=== PATIENT | female | born 1955 | race Caucasian/White ===

== ENCOUNTER → 2016-04-15 | Outpatient (CLI) | payer MEDICARE, OTHER ==
--- NOTE | 2016-04-18 10:06 | MM ---
Reason for exam: screening (asymptomatic). Last mammogram was performed 2 years ago. History: Patient is postmenopausal, has history of high-risk lesion on a previous biopsy at age 55, and is nulliparous. Family history of breast cancer in maternal aunt at age 70. Benign right breast needle localzation of both breasts, January 21, 2013. High risk right breast needle localzation of both breasts, September 10, 2012. Benign right breast aspiration of the right breast, August 20, 2012. High risk u/S left breast localization of the left breast, April 18, 2011. Benign excisional biopsy of the left breast, November 2004. Took estrogen for 3 years beginning at age 45. Taking other hormone beginning at age 55. Physical Findings: A clinical breast exam by your physician is recommended on an annual basis and results should be correlated with mammographic findings. MG 3D Screening Mammo W/Cad Bilateral CC and MLO view(s) were taken. Prior study comparison: April 08, 2014, bilateral MG diagnostic mammo w CAD ALEE. September 26, 2013, bilateral MG diagnostic mammo w CAD ALEE. The breast tissue is heterogeneously dense. This may lower the sensitivity of mammography. There is no discrete abnormality including area of concern. Post operative distortion bilaterally. ASSESSMENT: Incomplete: need additional imaging evaluation, BI-RAD 0 RECOMMENDATION: Ultrasound of the right breast. Manage patient on a clinical basis. [facility] will attempt to contact patient to return for ultrasound.
== END | disposition home or self-care (01) ==
LOC: RADMAMWWP 13:00
PROVIDERS: ATTEND Internal Medicine
DX: Z12.31 Encounter for screening mammogram for malignant neoplasm of breast (principal); R92.2 Inconclusive mammogram
CPT/HCPCS: 77063; G0202

== ENCOUNTER 2016-04-16 15:23 | Emergency (ER) | payer MEDICARE, OTHER ==
[2016-04-16 15:32] VITALS: TEMP 98.7
[2016-04-16 15:43] LABS: Glucose,Whole Blood 213 mg/dL (75-99)
[2016-04-16] MEDS ORDERED: MECLIZINE 12.5 MG TAB PO STA (15:58)
[2016-04-16 16:07] LABS: Anisocytosis Slight; Basophils % (A) 0 %; CH 25.9; CHCM 30.7; Eosinophils % (A) 1 %; HCT 39.9 % (34.0-46.0); HDW 3.24; HGB 11.8 gm/dL (11.4-16.0); Hypochromasia Marked; Luc # (Auto) 0.07; Luc % (Auto) 1; Lymphocytes % (A) 30 %; MCH 25.2 pg (25.0-35.0); MCHC 29.7 g/dL (31.0-37.0); MCV 84.8 fL (80.0-100.0); Mean Platelet Volume 7.7; Monocytes # (A) 0.3 k/uL (0-1.0); Monocytes % (A) 4 %; Neutrophils # (A) 4.3 k/uL (1.3-7.7); Neutrophils % (A) 64 %; RDW 16.5 % (11.5-15.5); WBC 6.7 k/uL (3.8-10.6); WBC (Perox) 6.63
[2016-04-16 16:20] LABS: Anion Gap 10 mmol/L; Blood Urea Nitrogen 13 mg/dL (7-17); Calcium 8.6 mg/dL (8.4-10.2); Carbon Dioxide 31 mmol/L (22-30); Chloride 97 mmol/L (98-107); Glucose 225 mg/dL (74-99); Non-African American GFR(MDRD) >60 (>60 ml/min/1.73 sqM); Potassium 4.2 mmol/L (3.5-5.1); Sodium 138 mmol/L (137-145)
--- NOTE | 2016-04-16 16:45 | CT ---
EXAMINATION TYPE: CT brain wo con DATE OF EXAM: 04/16/2016 4:19 PM COMPARISON: NONE HISTORY: Patient complains of dizziness. CT DLP: 809.2 mGycm Automated exposure control for dose reduction was used. FINDINGS: Ventricles and sulci appear normal for age. There is no mass effect nor midline shift. There is no si gn of intracranial hemorrhage. The calvarium is intact. There is a small mucous retention cyst in the sphenoid sinus. IMPRESSION: Negative unenhanced head CT scan.
--- NOTE | 2016-04-16 16:57 | ED ---
Dizziness HPI - General Chief Complaint: Dizziness Stated Complaint: dizziness Time Seen by Provider: 04/16/16 15:26 Source: patient, RN notes reviewed Mode of arrival: ambulatory Limitations: no limitations - History of Present Illness MD Complaint: dizziness -: hour(s) Timing: sudden onset Description: sense of movement History of Same: No History of Trauma: No Severity: moderate Improves With: remaining still Worsens With: movement Associated Symptoms: denies other symptoms - Related Data Home Medications Medication Instructions Recorded Confirmed Acetaminophen Tab [Tylenol Tab] 1,000 mg PO Q6HR PRN 07/31/14 04/16/16 Escitalopram [Lexapro] 20 mg PO DAILY 07/31/14 04/16/16 Levothyroxine Sodium [Synthroid] 88 mcg PO DAILY 07/31/14 04/16/16 Loratadine [Claritin] 10 mg PO DAILY 07/31/14 04/16/16 Losartan-Hctz 50-12.5 mg [Hyzaar 1 tab PO DAILY 07/31/14 04/16/16 50-12.5] Metoprolol Tartrate [Lopressor] 50 mg PO HS 07/31/14 04/16/16 QUEtiapine FUMARATE [SEROquel] 300 mg PO HS 07/31/14 04/16/16 Warfarin [Coumadin] 5 mg PO MOTUTHFRSA 07/31/14 04/16/16 Albuterol Nebulized [Ventolin 2.5 mg INHALATION RT-QID PRN 11/30/15 04/16/16 Nebulized] Linagliptin [Tradjenta] 5 mg PO 1800 11/30/15 04/16/16 glipiZIDE [Glucotrol] 5 mg PO AC-BID 11/30/15 04/16/16 Fluocinolone Acetonide Oil 5 drops BOTH EARS BID PRN 04/16/16 04/16/16 [Fluocinolone Acetonide Oil (Otic)] Medroxyprogesterone Acetate 5 mg PO DAILY 04/16/16 04/16/16 [Provera] Omeprazole [PriLOSEC] 40 mg PO DAILY 04/16/16 04/16/16 Warfarin [Coumadin] 2.5 mg PO SUWE 04/16/16 04/16/16 Previous Rx's Medication Instructions Recorded Meclizine [Antivert] 25 mg PO TID PRN #21 tab 04/16/16 Allergies Allergy/AdvReac Type Severity Reaction Status Date / Time ciprofloxacin [From Cipro] Allergy Severe HIVES Verified 04/16/16 15:32 ciprofloxacin HCl Allergy Severe HIVES Verified 04/16/16 15:32 [From Cipro] clarithromycin [From Biaxin] Allergy Severe HIVES Verified 04/16/16 15:32 codeine Allergy Severe HIVES Verified 04/16/16 15:32 duloxetine HCl Allergy Severe Nausea Verified 04/16/16 15:32 [From Cymbalta] hydrocodone bitartrate Allergy Severe Rash/Hives Verified 04/16/16 15:32 [From Vicodin] Penicillins Allergy Severe Abdominal Verified 04/16/16 15:32 Pain Sulfa (Sulfonamide Allergy Severe HEADACHE Verified 04/16/16 15:32 Antibiotics) alprazolam [From Xanax] Allergy Unknown HIVES Verified 04/16/16 15:32 buspirone HCl [From BuSpar] Allergy Unknown Nausea & Verified 04/16/16 15:32 Vomiting clindamycin HCl Allergy Unknown HIVES Verified 04/16/16 15:32 [From Cleocin] clindamycin palmitate HCl Allergy Unknown HIVES Verified 04/16/16 15:32 [From Cleocin] clindamycin phosphate Allergy Unknown HIVES Verified 04/16/16 15:32 [From Cleocin] honey Allergy Unknown Anaphylaxis Verified 04/16/16 15:32 metformin Allergy Unknown Anaphylaxis Verified 04/16/16 15:32 cornmeal Allergy Unknown Rash/Hives Uncoded 04/16/16 15:32 Review of Systems ROS Statement: Those systems with pertinent positive or pertinent negative responses have been documented in the HPI. ROS Other: All systems not noted in ROS Statement are negative. Constitutional: Denies: fever, chills Eyes: Denies: vision change ENT: Denies: ear pain, congestion Respiratory: Denies: cough, dyspnea Cardiovascular: Denies: chest pain, palpitations, edema, syncope Gastrointestinal: Denies: abdominal pain, nausea, vomiting Genitourinary: Denies: urgency, dysuria, hematuria Musculoskeletal: Denies: back pain Skin: Denies: rash Neurological: Denies: headache, weakness, numbness, paresthesias, confusion Past Medical History Past Medical History: Asthma, COPD, Diabetes Mellitus, Hypertension, Osteoarthritis (OA), Pulmonary Embolus (PE), Skin Disorder, Thyroid Disorder Additional Past Medical History / Comment(s): OA ALEE KNEES, SHOULDERS, RT ANKLE - CORTISONE INJ IN KNEE LAST 07/2015. POSS ECZEMA. EDEMA IN LEGS OCC. PM BLEEDING 08/07/15-11/16/15; HAD PROC 07/2014 ALSO. USES O2 AT HS AT 2.5L. CHRONIC SINUS/ ALLERGIES. History of Any Multi-Drug Resistant Organisms: Unobtainable Past Surgical History: Breast Surgery, Cholecystectomy, Orthopedic Surgery Additional Past Surgical History / Comment(s): LT WRIST GANGLION CYST. 3 BREAST SURGERIES - BENIGN. RTR. SINUS SURGERY. D&C 07/2014. Past Anesthesia/Blood Transfusion Reactions: Motion Sickness Additional Past Anesthesia/Blood Transfusion Reaction / Comment(s): Claustrophobia Past Psychological History: Bipolar, Depression Additional Psychological History / Comment(s): USES POWER[employer] W/C, but able to care for self at home. Has [employer] FEW DAYS PER WEEK. Smoking Status: Never smoker Past Alcohol Use History: None Reported Past Drug Use History: None Reported - Past Family History Mother Family Medical History: Unable to Obtain Father Family Medical History: Unable to Obtain General Exam Limitations: no limitations General appearance: alert, in no apparent distress, obese Head exam: Present: atraumatic, normocephalic, normal inspection Eye exam: Present: normal appearance, PERRL, EOMI, nystagmus. Absent: scleral icterus, conjunctival injection ENT exam: Present: normal oropharynx Neck exam: Present: normal inspection, full ROM Respiratory exam: Present: normal lung sounds bilaterally. Absent: respiratory distress, wheezes, rales, rhonchi, stridor Cardiovascular Exam: Present: regular rate, normal rhythm, normal heart sounds. Absent: systolic murmur, diastolic murmur, rubs, gallop GI/Abdominal exam: Present: soft. Absent: distended, tenderness, guarding, rebound Extremities exam: Present: normal inspection, normal capillary refill. Absent: pedal edema, calf tenderness Back exam: Present: normal inspection Neurological exam: Present: alert, oriented X3, CN II-XII intact. Absent: motor sensory deficit Skin exam: Present: warm, dry, intact, normal color. Absent: rash Course Vital Signs 04/16/16 04/16/16 15:29 17:24 Temperature 98.7 F Pulse Rate 87 81 Respiratory 18 16 Rate Blood Pressure 165/77 152/82 O2 Sat by Pulse 90 L 97 Oximetry EKG Findings - EKG Results: EKG: interpreted by GIBSON GOODRICH, sinus rhythm (Rate 84 bpm), normal axis, normal QRS, normal ST/T, no acute changes Medical Decision Making - Lab Data Result diagrams: 04/16/16 15:45 04/16/16 15:45 Lab Results 04/16/16 04/16/16 04/16/16 Range/Units 15:29 15:45 15:45 WBC 6.7 (3.8-10.6) k/uL RBC 4.70 (3.80-5.40) m/uL Hgb 11.8 (11.4-16.0) gm/dL Hct 39.9 (34.0-46.0) % MCV 84.8 (80.0-100.0) fL MCH 25.2 (25.0-35.0) pg MCHC 29.7 L (31.0-37.0) g/dL RDW 16.5 H (11.5-15.5) % Plt Count 295 (150-450) k/uL Neutrophils % 64 % Lymphocytes % 30 % Monocytes % 4 % Eosinophils % 1 % Basophils % 0 % Neutrophils # 4.3 (1.3-7.7) k/uL Lymphocytes # 2.0 (1.0-4.8) k/uL Monocytes # 0.3 (0-1.0) k/uL Eosinophils # 0.0 (0-0.7) k/uL Basophils # 0.0 (0-0.2) k/uL Hypochromasia Marked Anisocytosis Slight Sodium 138 (137-145) mmol/L Potassium 4.2 (3.5-5.1) mmol/L Chloride 97 L (98-107) mmol/L Carbon Dioxide 31 H (22-30) mmol/L Anion Gap 10 mmol/L BUN 13 (7-17) mg/dL Creatinine 0.65 (0.52-1.04) mg/dL Est GFR (MDRD) Af Amer >60 (>60 ml/min/1.73 sqM) Est GFR (MDRD) Non-Af >60 (>60 ml/min/1.73 sqM) Glucose 225 H (74-99) mg/dL POC Glucose (mg/dL) 213 H (75-99) mg/dL POC Glu Health Safety Engineer ID Edis Lemus Calcium 8.6 (8.4-10.2) mg/dL Disposition Clinical Impression: Vertigo Disposition: HOME SELF-CARE Condition: Good Instructions: Dizziness (ED) Prescriptions: Meclizine [Antivert] 25 mg PO TID PRN #21 tab PRN Reason: Vertigo Referrals: Estelle Laurent MD [Primary Care Provider] - 1-2 days
[2016-04-16 17:24] VITALS: BP 152/82; PULSE 81; RESP 16
== END 2016-04-16 17:26 | disposition home or self-care (01) ==
LOC: EC 15:23
DX: R42 Dizziness and giddiness (principal); J44.9 Chronic obstructive pulmonary disease, unspecified; J45.909 Unspecified asthma, uncomplicated; I10 Essential (primary) hypertension; E11.9 Type 2 diabetes mellitus without complications; E07.9 Disorder of thyroid, unspecified; F31.9 Bipolar disorder, unspecified; Z79.899 Other long term (current) drug therapy; Z79.01 Long term (current) use of anticoagulants; Z79.84 Long term (current) use of oral hypoglycemic drugs; Z88.1 Allergy status to other antibiotic agents; Z88.5 Allergy status to narcotic agent; Z88.0 Allergy status to penicillin; Z88.2 Allergy status to sulfonamides; Z88.8 Allergy status to other drugs, medicaments and biological substances; Z79.890 Hormone replacement therapy; Z86.711 Personal history of pulmonary embolism; Z91.018 Allergy to other foods
CPT/HCPCS: 36415; 70450; 80048; 85025; 93005; 99285

== ENCOUNTER → 2016-05-18 | Outpatient (CLI) | payer MEDICARE, OTHER ==
--- NOTE | 2016-05-19 23:00 | ENG ---
DATE OF SERVICE: VNG INDICATIONS: A 60-year-old female with vertigo. No history given. VNG FINDINGS Saccade shows intact peak velocities and latencies but impaired accuracies. Gaze with fixation shows no nystagmus in any of the directions of gaze, including centrally with vision denied. Tracking shows breakups. Opticokinetic nystagmus shows no significant asymmetry. Static position testing was limited due to cervical spine issue. Positions tested include sitting, supine, head right and head left with eyes open and vision denied. Jacoby-Hallpike maneuver unable to be done due to mobility issues. Caloric testing shows a 7% unilateral left caloric weakness, which is within normal limits. Fixation index negative. IMPRESSION: This is an abnormal VNG showing breakups on tracking and abnormal saccade accuracies. This favors central nervous system dysfunction. No evidence for vestibulopathy. Note that Jacoby-Hallpike maneuvers could not be performed to help exclude benign positional vertigo due to patient mobility issues with the cervical spine. Clinical correlation advised.
== END | disposition home or self-care (01) ==
LOC: NEUROMAIN 08:36
PROVIDERS: ATTEND Otolaryngology
DX: R42 Dizziness and giddiness (principal)
CPT/HCPCS: 92537; 92540

== ENCOUNTER → 2016-06-09 | Outpatient (CLI) | payer MEDICARE, OTHER ==
[2016-06-09 16:49] LABS: Blood Urea Nitrogen 14 mg/dL (7-17); Non-African American GFR(MDRD) >60 (>60 ml/min/1.73 sqM)
--- NOTE | 2016-06-09 17:29 | CT ---
EXAMINATION TYPE: CT iac w con DATE OF EXAM: 06/09/2016 5:17 PM COMPARISON: NONE HISTORY: Patient complains of chronic severe vertigo x2 months. CT DLP: 142.7 mGycm Automated exposure control for dose reduction was used. CONTRAST: CT scan of the IACs is performed with IV Contrast, patient injected with 100 mL of Omnipaque 300. Findings There is normal aeration of the mastoid air cells. The external auditory canals appear fairly normal. There is slight thickening seen at the right tympanic membrane compared to the left. There is normal aeration of the epitympanic recess bilaterally. The semicircular canals are symmetric. Cochlea are s ymmetric. I see no bony destructive process. The internal auditory canals appear normal. There is no sign of a cerebellopontine angle mass. Posterior fossa structures appear normal. The vertebrobasilar artery system appears normal. IMPRESSION: There is slight thickening of right tympanic membrane compared to the left is nonspecific and could relate to scarring or inflammatory changes. Otherwise negative CT scan of the temporal bon es. There is noted a 1 cm mucous retention cyst in the right side of the sphenoid sinus.
== END | disposition home or self-care (01) ==
LOC: RADCTMAIN 15:56
PROVIDERS: ATTEND Otolaryngology
DX: H73.891 Other specified disorders of tympanic membrane, right ear (principal); J34.1 Cyst and mucocele of nose and nasal sinus
CPT/HCPCS: 82565; 84520; 70481; 36415; Q9967

== ENCOUNTER → 2016-08-25 | Outpatient (CLI) | payer MEDICARE, OTHER ==
[2016-08-25 11:21] LABS: Anisocytosis Slight; Basophils % (A) 0 %; CH 24.8; CHCM 30.2; Eosinophils % (A) 0 %; HCT 40.6 % (34.0-46.0); HGB 12.2 gm/dL (11.4-16.0); Hypochromasia Marked; Luc # (Auto) 0.11; Luc % (Auto) 1; Lymphocytes % (A) 24 %; MCH 24.7 pg (25.0-35.0); MCV 82.2 fL (80.0-100.0); Mean Platelet Volume 6.7; Monocytes # (A) 0.2 k/uL (0-1.0); Monocytes % (A) 3 %; Neutrophils # (A) 5.9 k/uL (1.3-7.7); Neutrophils % (A) 71 %; RBC 4.93 m/uL (3.80-5.40); RDW 16.5 % (11.5-15.5); WBC 8.3 k/uL (3.8-10.6); WBC (Perox) 8.79
[2016-08-25 11:38] LABS: ALT 27 U/L (9-52); AST 17 U/L (14-36); Alkaline Phosphatase 99 U/L (38-126); Anion Gap 11 mmol/L; Blood Urea Nitrogen 17 mg/dL (7-17); Calcium 8.5 mg/dL (8.4-10.2); Carbon Dioxide 30 mmol/L (22-30); Chloride 95 mmol/L (98-107); Cholesterol 178 mg/dL (<200); Glucose 226 mg/dL (74-99); HDL Cholesterol 40 mg/dL (40-60); Non-African American GFR(MDRD) >60 (>60 ml/min/1.73 sqM); Potassium 4.1 mmol/L (3.5-5.1); Sodium 136 mmol/L (137-145); Total Bilirubin 0.7 mg/dL (0.2-1.3); Total Protein 6.9 g/dL (6.3-8.2); Triglycerides 115 mg/dL (<150)
[2016-08-25 12:00] LABS: Hemoglobin A1C 8.3 % (4.2-6.1)
== END | disposition home or self-care (01) ==
LOC: LABWHC1 10:41
PROVIDERS: ATTEND Internal Medicine
DX: E03.9 Hypothyroidism, unspecified (principal); I10 Essential (primary) hypertension; J44.9 Chronic obstructive pulmonary disease, unspecified; G11.9 Hereditary ataxia, unspecified
CPT/HCPCS: 36415; 80053; 80061; 82306; 83036; 84443; 85025

== ENCOUNTER → 2016-12-26 | Outpatient (CLI) | payer MEDICARE, OTHER ==
[~2016-12-26] MED LIST: REGADENOSON 0.4 MG/5 ML SYRINGE IV ONE
--- NOTE | 2016-12-26 12:24 | EST ---
EXERCISE STRESS DATE OF SERVICE: 12/26/2016 AGE: 61 SEX: Female HT: 5'4" WT: 400 PROTOCOL: Lexiscan Cardiolite STAGE: DURATION OF EXERCISE: HEART RATE REST: 69 BLOOD PRESSURE REST: 129/75 MAXIMUM HEART RATE ACHIEVED: 86 MAXIMUM BLOOD PRESSURE: 149/85 85% MPHR: 133 100% MPHR: 157 METS: INDICATIONS: Chest pain. CLINICAL INFORMATION: This is a stress test on Leonela both [id number]. INDICATION: Chest pain. CLINICAL INFORMATION: Baseline EKG shows sinus rhythm, normal axis, normal intervals. Patient was given intravenous Lexiscan as per protocol. Did not have chest pain or diagnostic ST-segment depression. CONCLUSIONS: 1. Negative stress test by EKG criteria. 2. Cardiolite portion of the stress test will be reported separately. MMODL / IJN: [id number] /
--- NOTE | 2016-12-26 12:48 | NM ---
EXAMINATION TYPE: NM stress lexiscan cardiolite DATE OF EXAM: 12/26/2016 COMPARISON: NONE HISTORY: 61-year-old female with chest pain TECHNIQUE: After the intravenous administration of 9.48 mCi Tc 99m Sestamibi - Cardiolite resting SP ECT images acquired 60 minutes post injection. The patient received 0.4mg Lexiscan, 25.3 mCi Tc 99m Sestamibi - Stress images obtained [address] injection FINDINGS: Review of stress and rest SPECT images demonstrates decreased perfusion along the inferior wall. Thes e defects are larger on the rest images where the abnormality extends to the inferolateral wall. While no clear reversibility is identified upon review of the rest and stress images, polar maps det ect reversibility along the inferior wall. Gated analysis suggests dyskinesia of the inferior wall. Estimated left ventricular ejection fraction is 62%. TIS is 1.13, upper limits of normal. IMPRESSION: 1. Perfusion defect along the inferior wall which appears to show dyskinesia on the gated images. 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 2. While review of the rest and stress images show no clear reversibility, polar maps detect reversib ility along the inferior wall which can be seen in the setting of enio-infarct ischemia. Further EKG and clinical correlation is recommended.
== END ==
LOC: RADNMMAIN 09:07
PROVIDERS: ATTEND Internal Medicine
DX: R07.9 Chest pain, unspecified (principal)
CPT/HCPCS: 93017; 78452; A9500; J2785

== ENCOUNTER → 2017-03-16 | Outpatient (CLI) | payer MEDICARE, OTHER ==
[~2017-03-16] MED LIST changes: +DOBUTamine DRIP for NUC MED 500 MG in DEXTROSE/WATER 1 250ML.BAG IV ONE; -REGADENOSON 0.4 MG/5 ML SYRINGE IV ONE
--- NOTE | 2017-03-16 13:53 | ECHOS ---
STRESS ECHOCARDIOGRAM INDICATIONS: Prior [place] BASELINE HEART RATE: 102 BASELINE BLOOD PRESSURE: 146/82 MAXIMUM HEART RATE: 138 MAXIMUM BLOOD PRESSURE: 154/73 85% MPHR: 133 100% MPHR: 157 MAXIMUM STAGE REACHED: 3 TOTAL EXERCISE TIME: 6:30 CLINICAL INFORMATION: Baseline EKG revealed a sinus mechanism with isolated PVCs. No acute changes. Patient was administered dobutamine as per protocol. With the dobutamine administration, the patient's heart rate increased progressively with at a peak rate of 138 beats per minute. Resting blood pressure was 146/82. Peak blood pressure was 154/73. Patient did not have any angina. Rare PVCs were noted. EKG did not reveal any ST-segment changes to indicate ischemia. By EKG criteria, this is a negative dobutamine stress test with isolated PVCs, but no significant ST-segment changes to indicate ischemia. Baseline echo images revealed a normal wall motion and wall thickening of all segments. With dobutamine administration as per protocol, there was progressive increase in wall motion and wall thickening of all segments suggesting that there is no evidence of stress-induced ischemia on this dobutamine echocardiogram. IMPRESSION: 1. By EKG criteria, this is an unremarkable dobutamine stress test by EKG criteria. 2. Normal dobutamine stress echocardiogram without evidence of ischemia. MMODL / IJN: [id number] /
== END ==
LOC: RADNMMAIN 10:02
PROVIDERS: ATTEND Internal Medicine Cardiovascular Disease
DX: I25.2 Old myocardial infarction (principal)
CPT/HCPCS: 93017; C8928; Q9957; 93350

== ENCOUNTER → 2017-08-24 | Outpatient (CLI) | payer MEDICARE, OTHER ==
--- NOTE | 2017-08-24 14:04 | US ---
EXAMINATION TYPE: US venous doppler duplex LE RT DATE OF EXAM: 08/24/2017 1:11 PM COMPARISON: CLINICAL HISTORY: I82.401,I82.402,M79.661,M79.662 RT LEG SWELLING. PE x 11 years ago. On coumadin. Right leg pain. SIDE PERFORMED: Right TECHNIQUE: The lower extremity deep venous system is examined utilizing real time linear array sonog marek with graded compression, doppler sonography and color-flow sonography. VESSELS IMAGED: External Iliac Vein (EIV) Common Femoral Vein Deep Femoral Vein Greater Saphenous Vein * Femoral Vein Popliteal Vein Small Saphenous Vein * Proximal Calf Veins (* superficial vessels) Limited exam due to patient body habitus Right Leg: Appears negative for acute DVT IMPRESSION: 1. Left lower extremity ultrasound negative for deep venous thrombosis.
== END | disposition home or self-care (01) ==
LOC: RADUSWWP 12:38
PROVIDERS: ATTEND Orthopaedic Surgery
DX: M79.661 Pain in right lower leg (principal); M79.662 Pain in left lower leg; R60.9 Edema, unspecified; Z88.1 Allergy status to other antibiotic agents; Z88.8 Allergy status to other drugs, medicaments and biological substances; Z88.0 Allergy status to penicillin; Z88.2 Allergy status to sulfonamides; Z88.5 Allergy status to narcotic agent

== ENCOUNTER 2018-08-03 12:14 | Emergency (ER) | payer MEDICARE, OTHER ==
[2018-08-03 12:25] VITALS: BP 134/71; PULSE 80; RESP 18; TEMP 98.4
--- NOTE | 2018-08-03 13:58 | ED ---
Fall HPI - General Chief Complaint: Fall Stated Complaint: Fall-knee pain Time Seen by Provider: 08/03/18 12:52 Source: patient Mode of arrival: wheelchair - History of Present Illness Initial Comments: Patient is a 62-year-old female with history of vertigo, bilateral lower leg edema and diabetes is presenting to emergency Department after a fall. Patient states that yesterday she was attempting to get off her wheelchair to open the door and developed symptoms of vertigo causing her to fall forward and make contact with both of her knees on the floor. Patient states that she contacted the fire department to help her. Patient states that she only had mild pain and discomfort at the time of incident. Patient reports this morning the pain is more severe and increased swelling. Patient reports the pain is located in the inferior patellar region and radiates along the anterior lower legs. Patient reports pain with weightbearing. Patient denies any pain or tenderness along the calf. Patient states that she normally has bilateral lower leg edema due to her cardiac vascular condition which she takes a diuretic medication. Patient states that she did not take her diuretics this morning because the make her go to the bathroom often and she is unable to move. Patient is bound to a wheelchair as her baseline. Patient denies headache, dizziness, lightheadednes s, cough, chest pain, chest tightness. Patient denies loss of consciousness the time of incident. Patient denies any numbness or tingling. Patient is on blood thinners. - Related Data Home Medications Medication Instructions Recorded Confirmed Acetaminophen Tab [Tylenol Tab] 1,000 mg PO Q6HR PRN 07/31/14 12/12/16 Escitalopram [Lexapro] 20 mg PO DAILY 07/31/14 12/12/16 Levothyroxine Sodium [Synthroid] 88 mcg PO DAILY 07/31/14 12/12/16 Loratadine [Claritin] 10 mg PO DAILY 07/31/14 12/12/16 Losartan-Hctz 50-12.5 mg [Hyzaar 1 tab PO DAILY 07/31/14 12/12/16 50-12.5] Metoprolol Tartrate [Lopressor] 50 mg PO HS 07/31/14 12/12/16 QUEtiapine FUMARATE [SEROquel] 300 mg PO HS 07/31/14 12/12/16 Albuterol Nebulized [Ventolin 2.5 mg INHALATION RT-QID PRN 11/30/15 12/12/16 Nebulized] Linagliptin [Tradjenta] 5 mg PO DAILY@1800 11/30/15 12/12/16 glipiZIDE [Glucotrol] 5 mg PO AC-BID 11/30/15 12/12/16 Fluocinolone Acetonide Oil 5 drops BOTH EARS BID PRN 04/16/16 12/12/16 [Fluocinolone Acetonide Oil (Otic)] Warfarin [Coumadin] 5 mg PO SUMOTUTHFRSA@1800 04/16/16 12/12/16 Albuterol Sulfate [Proair Hfa] 1 - 2 puff INHALATION RT-Q6H PRN 12/12/16 12/12/16 Medroxyprogesterone Acetate 10 mg PO DAILY 12/12/16 12/12/16 [Provera] Omeprazole 40 mg PO DAILY 12/12/16 12/12/16 Previous Rx's Medication Instructions Recorded Meclizine [Antivert] 25 mg PO TID PRN #21 tab 04/16/16 Allergies Allergy/AdvReac Type Severity Reaction Status Date / Time ciprofloxacin [From Cipro] Allergy Severe HIVES Verified 08/03/18 12:25 ciprofloxacin HCl Allergy Severe HIVES Verified 08/03/18 12:25 [From Cipro] clarithromycin [From Biaxin] Allergy Severe HIVES Verified 08/03/18 12:25 codeine Allergy Severe HIVES Verified 08/03/18 12:25 duloxetine HCl Allergy Severe Nausea Verified 08/03/18 12:25 [From Cymbalta] hydrocodone bitartrate Allergy Severe Rash/Hives Verified 08/03/18 12:25 [From Vicodin] Penicillins Allergy Severe Abdominal Verified 08/03/18 12:25 Pain Sulfa (Sulfonamide Allergy Severe HEADACHE Verified 08/03/18 12:25 Antibiotics) alprazolam [From Xanax] Allergy Unknown HIVES Verified 08/03/18 12:25 buspirone HCl [From BuSpar] Allergy Unknown Nausea & Verified 08/03/18 12:25 Vomiting clindamycin HCl Allergy Unknown HIVES Verified 08/03/18 12:25 [From Cleocin] clindamycin palmitate HCl Allergy Unknown HIVES Verified 08/03/18 12:25 [From Cleocin] clindamycin phosphate Allergy Unknown HIVES Verified 08/03/18 12:25 [From Cleocin] honey Allergy Unknown Anaphylaxis Verified 08/03/18 12:25 metformin Allergy Unknown Anaphylaxis Verified 08/03/18 12:25 cornmeal Allergy Unknown Rash/Hives Uncoded 08/03/18 12:25 Review of Systems ROS Statement: Those systems with pertinent positive or pertinent negative responses have been documented in the HPI. ROS Other: All systems not noted in ROS Statement are negative. Past Medical History Past Medical History: Asthma, COPD, Diabetes Mellitus, Hypertension, Osteoarthritis (OA), Pulmonary Embolus (PE), Skin Disorder, Thyroid Disorder Additional Past Medical History / Comment(s): OA LAEE KNEES, SHOULDERS, RT ANKLE - CORTISONE INJ IN KNEE LAST 07/2015. POSS ECZEMA. EDEMA IN LEGS OCC. PM BLEEDING 08/07/15-11/16/15; HAD PROC 07/2014 ALSO. USES O2 AT HS AT 2.5L. CHRONIC SINUS/ ALLERGIES, vertigo History of Any Multi-Drug Resistant Organisms: Unobtainable Past Surgical History: Breast Surgery, Cholecystectomy, Orthopedic Surgery Additional Past Surgical History / Comment(s): LT WRIST GANGLION CYST. 3 BREAST SURGERIES - BENIGN. RTR. SINUS SURGERY. D&C 07/2014. Past Anesthesia/Blood Transfusion Reactions: Motion Sickness Additional Past Anesthesia/Blood Transfusion Reaction / Comment(s): Claustrophobia Past Psychological History: Bipolar, Depression Smoking Status: Never smoker Past Alcohol Use History: None Reported Past Drug Use History: None Reported - Past Family History Mother Family Medical History: Unable to Obtain Father Family Medical History: Unable to Obtain General Exam Limitations: no limitations, physical limitation General appearance: alert, in no apparent distress Head exam: Present: atraumatic, normocephalic, normal inspection Eye exam: Present: normal appearance ENT exam: Present: normal exam Respiratory exam: Present: normal lung sounds bilaterally Cardiovascular Exam: Present: regular rate Extremities exam: Present: tenderness (Tenderness along the inferior patellar region radiating to the mid shaft of the anterior tibia, bilaterally.), normal capillary refill (+2 dorsalis pedis and posterior tibialis), other (Bilateral l ower leg edema with no pitting). Absent: full ROM (Limited range of motion due to pain.), calf tenderness (Negative Homans sign bilaterally) Neurological exam: Present: alert, oriented X3 Psychiatric exam: Present: normal affect, normal mood Skin exam: Present: warm, normal color Course Vital Signs 08/03/18 12:22 Temperature 98.4 F Pulse Rate 80 Respiratory 18 Rate Blood Pressure 134/71 O2 Sat by Pulse 96 Oximetry Medical Decision Making - Medical Decision Making Patient is a 62-year-old female presenting to emergency Department with bilateral lower leg pain. X-rays of bilateral knees and tib-fib are negative for any acute fractures or dislocations. I have a Low suspicion for DVT based on physical examination in HPI, also patient is on Coumadin. Increased leg swelling is most likely due to missed dose of diuretic medication this morning. The pain only appears to be as a result of soft tissue injury. Patient advised to follow-up with primary care. Patient advised to return to emergency department if symptoms worsen. Dr. Chiu also reviewed imaging and is in agreement with treatment plan. Disposition Clinical Impression: Fall Disposition: HOME SELF-CARE Condition: Stable Instructions (If sedation given, give patient instructions): Fall Prevention for Older Adults (ED) Additional Instructions: Please follow up with primary care. Please return to emergency department is symptoms worsen. Keep legs elevated to decrease swelling. Is patient prescribed a controlled substance at d/c from ED?: No Referrals: Estelle Laurent MD [Primary Care Provider] - 1-2 days Time of Disposition: 15:24
--- NOTE | 2018-08-03 14:33 | XR ---
Bilateral legs HISTORY: Knee pain, trauma Frontal and lateral views of each leg are submitted on a total of 8 images Marked osteophytic changes noted in the bilateral knees. There is soft tissue swelling present. Marke d arthropathy noted in the ankles. IMPRESSION: No fracture or dislocation. Osteoarthritis.
--- NOTE | 2018-08-03 14:45 | XR ---
EXAMINATION TYPE: XR knee complete bilateral DATE OF EXAM: 08/03/2018 CLINICAL HISTORY: Bilateral knee pain after fall yesterday TECHNIQUE: Three views of the both knees were obtained. COMPARISON: 07/23/2013 FINDINGS: There is no acute fracture/dislocation evident in either knee. There is oxpz-hv-sleh artic ulation of the medial compartment and near qupr-il-outj articulation of the lateral compartment of th e left knee, similar in the right. Moderate tricompartmental marginal osteophytes are present. There is diffuse osseous demineralization bilaterally. No suprapatellar joint effusion. The overlying soft tissue appears unremarkable. IMPRESSION: There is no acute fracture or dislocation in either knee. Severe tricompartmental arthro erica bilaterally and diffuse osseous demineralization.
== END 2018-08-03 15:30 | disposition home or self-care (01) ==
LOC: EC 12:14
DX: M79.661 Pain in right lower leg (principal); M79.662 Pain in left lower leg; R60.0 Localized edema; M25.561 Pain in right knee; M25.562 Pain in left knee; R42 Dizziness and giddiness; J44.9 Chronic obstructive pulmonary disease, unspecified; E11.9 Type 2 diabetes mellitus without complications; I10 Essential (primary) hypertension; E07.9 Disorder of thyroid, unspecified; F31.9 Bipolar disorder, unspecified; Z88.0 Allergy status to penicillin; Z88.1 Allergy status to other antibiotic agents; Z88.2 Allergy status to sulfonamides; Z88.5 Allergy status to narcotic agent; Z88.8 Allergy status to other drugs, medicaments and biological substances; Z91.018 Allergy to other foods; Z91.048 Other nonmedicinal substance allergy status; Z79.01 Long term (current) use of anticoagulants; Z79.84 Long term (current) use of oral hypoglycemic drugs; Z79.890 Hormone replacement therapy; Z79.899 Other long term (current) drug therapy; Z99.81 Dependence on supplemental oxygen; Z87.39 Personal history of other diseases of the musculoskeletal system and connective tissue; W01.0XXA Fall on same level from slipping, tripping and stumbling without subsequent striking against object, initial encounter; Y93.89 Activity, other specified; Y92.009 Unspecified place in unspecified non-institutional (private) residence as the place of occurrence of the external cause
CPT/HCPCS: 99283

== ENCOUNTER 2018-08-04 13:25 | Inpatient (IN) | payer MEDICARE, OTHER ==
--- NOTE | 2018-08-04 14:00 | ED ---
General Adult HPI - General Chief complaint: Extremity Injury, Lower Stated complaint: Leg Pain Time Seen by Provider: 08/04/18 13:34 Source: patient, EMS Mode of arrival: EMS Limitations: physical limitation - History of Present Illness Initial comments: Dictation was produced using [email or web address] dictation software. please excuse any grammatical, word or spelling errors. Chief Complaint: 62 Year-old feel multiple comorbidities on Coumadin presents with difficulties with activities of daily living. History of Present Illness: 42-year-old female she was seen here in emergency department yesterday for bilateral knee pain. Patient states she had a mechanical fall causing her to fall to her knees. She was evaluated yesterday he had x-rays performed and was discharge. Patient states that she was at home when she felt like she couldn't take care of herself secondary to the pain. Patient states she's having difficulty ambulating around her house to take care of herself. Patient states that the pain is so bad that she cannot even with her general regions after using the toilet. Denies any constitutional symptoms. Patient states she is on Coumadin. Patient reports increasing pain to the bilateral knees. She was seen here yesterday where she was seen to have bruising to the left knee. The ROS documented in this emergency department record has been reviewed and confirmed by me. Those systems with pertinent positive or negative responses have been documented in the HPI. All other systems are other negative and/or noncontributory. PHYSICAL EXAM: General Impression: Alert and oriented x3, not in acute distress, morbidly obese HEENT: Normocephalic atraumatic, extra-ocular movements intact, pupils equal and reactive to light bilaterally, mucous membranes moist. Cardiovascular: Heart regular rate and rhythm, S1&S2 audible, no murmurs, rubs or gallops Chest: Lungs clear to auscultation bilaterally, no rhonchi, no wheeze, no rales Abdomen: Bowel sounds present, abdomen soft, non-tender, non-distended, no organomegaly Musculoskeletal: Pulses present and equal in all extremities, no peripheral edema Motor: no focal deficits noted Neurological: CN II-XII grossly intact, no focal motor or sensory deficits noted Skin: Diffuse ecchymoses and mild induration to his left anterior knee Psych: Normal affect and mood ED course: 62-year-old female presents with knee pain and difficulties with ADLs. Vital signs upon arrival are within acceptable limits. Patient is requesting inpatient admission due to difficulties with care for herself. She lives at home alone. Patient showing significant tenderness on knee examination. CTs were obtained. There doesn't appear to be any significant injuries however there does appear to be significant arthritic changes. Patient shows a poor effort when attempting to ambulate. Given patient's symptoms will place patient in the hospital for orthopedic surgery evaluation. Patient case discussed Dr. Jacob willing to accept admission. Laboratory evaluation is unremarkable. EKG interpretation: Ventricular rate [default value]. No TN prolongation, no QTC prolongation, no ST or T-wave changes noted. EKG compared to [default value] showing no changes. Overall, this EKG is unremarkable - Related Data Home Medications Medication Instructions Recorded Confirmed Escitalopram [Lexapro] 20 mg PO DAILY 07/31/14 08/04/18 Levothyroxine Sodium [Synthroid] 88 mcg PO DAILY 07/31/14 08/04/18 Loratadine [Claritin] 10 mg PO DAILY 07/31/14 08/04/18 Losartan-Hctz 50-12.5 mg [Hyzaar 1 tab PO DAILY 07/31/14 08/04/18 50-12.5] Metoprolol Tartrate [Lopressor] 50 mg PO HS 07/31/14 08/04/18 QUEtiapine FUMARATE [SEROquel] 300 mg PO HS 07/31/14 08/04/18 Albuterol Nebulized [Ventolin 2.5 mg INHALATION RT-QID PRN 11/30/15 08/04/18 Nebulized] Linagliptin [Tradjenta] 5 mg PO DAILY@1800 11/30/15 08/04/18 glipiZIDE [Glucotrol] 5 mg PO AC-BID 11/30/15 08/04/18 Fluocinolone Acetonide Oil 5 drops BOTH EARS BID PRN 04/16/16 08/04/18 [Fluocinolone Acetonide Oil (Otic)] Warfarin [Coumadin] 5 mg PO MOTUTHFRSA 04/16/16 08/04/18 Albuterol Sulfate [Proair Hfa] 1 - 2 puff INHALATION RT-Q6H PRN 12/12/16 08/04/18 Omeprazole 40 mg PO DAILY 12/12/16 08/04/18 Acetaminophen [Tylenol Arthritis] 650 mg PO DAILY 08/04/18 08/04/18 Previous Rx's Medication Instructions Recorded Meclizine [Antivert] 25 mg PO TID PRN #21 tab 04/16/16 Allergies Allergy/AdvReac Type Severity Reaction Status Date / Time ciprofloxacin [From Cipro] Allergy Severe HIVES Verified 08/04/18 13:40 ciprofloxacin HCl Allergy Severe HIVES Verified 08/04/18 13:40 [From Cipro] clarithromycin [From Biaxin] Allergy Severe HIVES Verified 08/04/18 13:40 codeine Allergy Severe HIVES Verified 08/04/18 13:40 duloxetine HCl Allergy Severe Nausea Verified 08/04/18 13:40 [From Cymbalta] hydrocodone bitartrate Allergy Severe Rash/Hives Verified 08/04/18 13:40 [From Vicodin] Penicillins Allergy Severe Abdominal Verified 08/04/18 13:40 Pain Sulfa (Sulfonamide Allergy Severe HEADACHE Verified 08/04/18 13:40 Antibiotics) alprazolam [From Xanax] Allergy Unknown HIVES Verified 08/04/18 13:40 buspirone HCl [From BuSpar] Allergy Unknown Nausea & Verified 08/04/18 13:40 Vomiting clindamycin HCl Allergy Unknown HIVES Verified 08/04/18 13:40 [From Cleocin] clindamycin palmitate HCl Allergy Unknown HIVES Verified 08/04/18 13:40 [From Cleocin] clindamycin phosphate Allergy Unknown HIVES Verified 08/04/18 13:40 [From Cleocin] honey Allergy Unknown Anaphylaxis Verified 08/04/18 13:40 metformin Allergy Unknown Anaphylaxis Verified 08/04/18 13:40 cornmeal Allergy Unknown Rash/Hives Uncoded 08/03/18 12:25 Review of Systems ROS Statement: Those systems with pertinent positive or pertinent negative responses have been documented in the HPI. ROS Other: All systems not noted in ROS Statement are negative. Past Medical History Past Medical History: Asthma, COPD, Diabetes Mellitus, Hypertension, Osteoarthritis (OA), Pulmonary Embolus (PE), Skin Disorder, Thyroid Disorder Additional Past Medical History / Comment(s): OA ALEE KNEES, SHOULDERS, RT ANKLE - CORTISONE INJ IN KNEE LAST 07/2015. POSS ECZEMA. EDEMA IN LEGS OCC. PM BLEEDING 08/07/15-11/16/15; HAD PROC 07/2014 ALSO. USES O2 AT HS AT 2.5L. CHRONIC SINUS/ ALLERGIES, vertigo History of Any Multi-Drug Resistant Organisms: Unobtainable Past Surgical History: Breast Surgery, Cholecystectomy, Orthopedic Surgery Additional Past Surgical History / Comment(s): LT WRIST GANGLION CYST. 3 BREAST SURGERIES - BENIGN. RTR. SINUS SURGERY. D&C 07/2014. Past Anesthesia/Blood Transfusion Reactions: Motion Sickness Additional Past Anesthesia/Blood Transfusion Reaction / Comment(s): Claustrophobia Past Psychological History: Bipolar, Depression Smoking Status: Never smoker Past Alcohol Use History: None Reported Past Drug Use History: None Reported - Past Family History Mother Family Medical History: Unable to Obtain Father Family Medical History: Unable to Obtain General Exam Limitations: physical limitation Course Vital Signs 08/04/18 13:38 Temperature 97.8 F Pulse Rate 82 Respiratory 18 Rate Blood Pressure 131/73 O2 Sat by Pulse 92 L Oximetry Medical Decision Making - Lab Data Result diagrams: 08/04/18 14:08 08/04/18 14:08 Lab Results 08/04/18 08/04/18 08/04/18 Range/Units 14:08 14:08 14:08 WBC 7.8 (3.8-10.6) k/uL RBC 4.35 (3.80-5.40) m/uL Hgb 10.8 L (11.4-16.0) gm/dL Hct 36.5 (34.0-46.0) % MCV 83.9 (80.0-100.0) fL MCH 24.8 L (25.0-35.0) pg MCHC 29.5 L (31.0-37.0) g/dL RDW 19.0 H (11.5-15.5) % Plt Count 307 (150-450) k/uL Neutrophils % 79 % Lymphocytes % 16 % Monocytes % 3 % Eosinophils % 1 % Basophils % 0 % Neutrophils # 6.2 (1.3-7.7) k/uL Lymphocytes # 1.3 (1.0-4.8) k/uL Monocytes # 0.2 (0-1.0) k/uL Eosinophils # 0.1 (0-0.7) k/uL Basophils # 0.0 (0-0.2) k/uL Hypochromasia Marked Anisocytosis Slight Microcytosis Slight PT 17.8 H (9.0-12.0) sec INR 1.8 H (<1.2) Sodium 140 (137-145) mmol/L Potassium 3.6 (3.5-5.1) mmol/L Chloride 101 (98-107) mmol/L Carbon Dioxide 34 H (22-30) mmol/L Anion Gap 5 mmol/L BUN 19 H (7-17) mg/dL Creatinine 0.72 (0.52-1.04) mg/dL Est GFR (CKD-EPI)AfAm >90 (>60 ml/min/1.73 sqM) Est GFR (CKD-EPI)NonAf 90 (>60 ml/min/1.73 sqM) Glucose 115 H (74-99) mg/dL Calcium 8.8 (8.4-10.2) mg/dL Disposition Clinical Impression: Knee pain Disposition: ADMITTED IP TO THIS [facility] Condition: Fair Referrals: Estelle Laurent MD [Primary Care Provider] - 1-2 days Decision Time: 16:08
[2018-08-04 14:28] LABS: Anisocytosis Slight; Basophils % (A) 0 %; Eosinophils # (A) 0.1 k/uL (0-0.7); Eosinophils % (A) 1 %; HCT 36.5 % (34.0-46.0); HGB 10.8 gm/dL (11.4-16.0); Hypochromasia Marked; Lymphocytes # (A) 1.3 k/uL (1.0-4.8); Lymphocytes % (A) 16 %; MCH 24.8 pg (25.0-35.0); MCHC 29.5 g/dL (31.0-37.0); MCV 83.9 fL (80.0-100.0); Mean Platelet Volume 6.6; Microcytosis Slight; Monocytes # (A) 0.2 k/uL (0-1.0); Monocytes % (A) 3 %; Neutrophils # (A) 6.2 k/uL (1.3-7.7); Neutrophils % (A) 79 %; Platelet Count 307 k/uL (150-450); RBC 4.35 m/uL (3.80-5.40); WBC 7.8 k/uL (3.8-10.6)
[2018-08-04 14:33] LABS: INR 1.8 (<1.2); Prothrombin Time 17.8 sec (9.0-12.0)
[2018-08-04 14:38] LABS: Anion Gap 5 mmol/L; Blood Urea Nitrogen 19 mg/dL (7-17); Calcium 8.8 mg/dL (8.4-10.2); Carbon Dioxide 34 mmol/L (22-30); Chloride 101 mmol/L (98-107); Glucose 115 mg/dL (74-99); Potassium 3.6 mmol/L (3.5-5.1); Sodium 140 mmol/L (137-145)
--- NOTE | 2018-08-04 16:02 | CT ---
EXAMINATION TYPE: CT lower extremity LT w con, CT lower extremity RT w con DATE OF EXAM: 08/04/2018 COMPARISON: Tibia and fibula x-rays and knee x-rays dated 08/03/2018 HISTORY: Fall yesterday landing on both knees. Inability to bear weight today, pain worse on right. CT DLP: 1478.4 mGycm Automated exposure control for dose reduction was used. TECHNIQUE: Enhanced was performed of the bilateral lower extremities per department protocol without 3-D reformats CONTRAST: Performed with IV Contrast, patient injected with 100 mL of Isovue 300. FINDINGS: Left: There is a mild amount of dependent edema with skin thickening seen medially and dependently of the left lower extremity as well as in the infrapatellar soft tissues and lateral prepatellar soft t issues. There is generalized atrophy of the musculature of the left lower extremity and venous varice s noted. There are extensive degenerative changes of the left knee with ywwt-yd-jrqs articulation of the weightbearing surface of the medial compartment and protuberant lateral osteophytes with near bon e-on-bone articulation of the lateral compartment and narrowing of the patellofemoral compartment. Th ere is depression of the anterior lateral tibial plateau however this appears to be from degenerative change or prior fracture deformity as there is no lipohemarthrosis or overlying soft tissue swelling and no acute fracture line seen. Subchondral cystic formation is seen of the medial compartment. Right: There is extensive arthropathy of the right knee with subchondral cyst for confirmation of bot h tibial plateaus and femoral condyles and oykh-vn-urpr articulation of the weightbearing surface wit h large protuberant osteophytes. There is extensive motion artifact of the mid diaphysis of the right femur on the sagittal images natasha earing to represent fractures however this appears as motion artifact on the axial images. There is s light lateral patellar subluxation without dislocation. No lipohemarthrosis. Generalized muscular atr ophy is seen. No focal soft tissue swelling in the prepatellar and infrapatellar regions. Small amoun t of fluid is seen over the lateral compartment. IMPRESSION: 1. NO DISCRETE FRACTURE OR DISLOCATION IS SEEN WITHIN EITHER KNEE HOWEVER THERE ARE BILATERAL ARTHROP ATHY WITH NUMEROUS SUBCHONDRAL CYSTIC CHANGES AND [id number] ARTICULATION OF THE MEDIAL WEIGHTBEARI NG SURFACE OF BOTH KNEES, LIMITING EVALUATION. THERE APPEARS TO BE A CHRONIC FRACTURE DEFORMITY OF TH E LEFT TIBIAL PLATEAU WITHOUT FOCAL OVERLYING SOFT TISSUE SWELLING OR LIPOHEMARTHROSIS SUGGEST ACUTE COMPONENT. MRI COULD BE PERFORMED TO EVALUATE FOR OCCULT FRACTURE CONSIDERING THE PATIENT IS NONWEIGH TBEARING. 2. ALTHOUGH THERE IS APPEARANCE OF TIBIAL AND FIBULAR FRACTURE ON THE RIGHT IN THE MID SHAFT APPEARS TO REPRESENT EXTENSIVE MOTION ARTIFACT WHEN EVALUATED ON AXIAL IMAGING. 3. DIFFUSE ATROPHY AND MULTIFOCAL NONSPECIFIC SUBCUTANEOUS EDEMA ARE NOTED.
[2018-08-04] MEDS ORDERED: NALOXONE 0.4 MG/ML 1 ML VIAL IV PRN (16:08)
[2018-08-04] MEDS ORDERED: ACETAMINOPHEN TAB 325 MG TAB PO PRN (16:08)
[2018-08-04] MEDS ORDERED: HYDROcodone/APAP 5-325MG 1 EACH TAB PO PRN (16:08)
[2018-08-04] MEDS ORDERED: ONDANSETRON 4 MG/2 ML VIAL IVP PRN (16:08)
[2018-08-04 18:26] VITALS: BMI 44.6
[2018-08-04 18:40] LABS: Glucose,Whole Blood 99 mg/dL (75-99)
[2018-08-04] MEDS ORDERED: MECLIZINE 25 MG TAB PO PRN (20:14)
[2018-08-04 20:24] LABS: Glucose,Whole Blood 111 mg/dL (75-99)
[2018-08-04] MEDS ORDERED: WARFARIN 5 MG TAB PO SCH (21:00)
[2018-08-04] MEDS: METOPROLOL TARTRATE 50 MG TAB PO SCH (21:35)
[2018-08-04] MEDS: QUEtiapine 100 MG TAB PO SCH (21:35)
[2018-08-04] MEDS: LINAGLIPTIN 5 MG TABLET PO SCH (21:35)
[2018-08-04] MEDS: INSULIN ASPART (NovoLOG) 100 UNIT/ML VIAL SQ SCH (21:36)
[2018-08-04] MEDS ORDERED: ACETIC ACID/HYDROCORTISONE 2-1% DROPS 10 ML BTL BOTH EARS SCH (22:00)
[2018-08-05 07:31] LABS: Glucose,Whole Blood 134 mg/dL (75-99)
[2018-08-05] MEDS: LOSARTAN-HCTZ 50-12.5 MG 1 EACH TAB PO SCH (07:35)
[2018-08-05] MEDS: PANTOPRAZOLE 40 MG TABLET PO SCH (07:35)
[2018-08-05] MEDS: LEVOTHYROXINE 88 MCG TAB PO SCH (07:35)
[2018-08-05] MEDS: ESCITALOPRAM 20 MG TAB PO SCH (07:36)
[2018-08-05] MEDS: glipiZIDE 5 MG TAB PO SCH ×2 (07:36→17:43)
[2018-08-05] MEDS: INSULIN ASPART (NovoLOG) 100 UNIT/ML VIAL SQ SCH ×4 (07:37→22:08)
[2018-08-05] MEDS: LORATADINE 10 MG TAB PO SCH (07:37)
[2018-08-05 08:10] LABS: Prothrombin Time 19.7 sec (9.0-12.0)
[2018-08-05] MEDS ORDERED: NON-FORMULARY DRUG (Omeprazole [Omeprazole] 40 MG) PO SCH (09:00)
--- NOTE | 2018-08-05 10:31 | P.CNOR ---
History of Present Illness - [facility] Consult date: 08/05/18 Consult reason: joint pain (Bilateral knees) History of present illness: The patient is a 62-year-old female who is morbidly obese who presents after falling on at home. She notes she is nonambulatory and only transfers with use of a wheelchair. She fell on both legs. She presented to the emergency room twice and subsequently was admitted. She notes the right knee is quite painful. She has a history of arthritis and has had previous injections. Review of Systems Musculoskeletal: Reports frequent falls, Reports limitation of motion, Reports morning stiffness Musculoskeletal: bilateral: knee pain, knee stiffness Past Medical History Past Medical History: Asthma, COPD, Diabetes Mellitus, Hypertension, Osteoarthritis (OA), Pulmonary Embolus (PE), Skin Disorder, Thyroid Disorder Additional Past Medical History / Comment(s): OA ALEE KNEES, SHOULDERS, RT ANKLE - CORTISONE INJ IN KNEE LAST 07/2015. POSS ECZEMA. EDEMA IN LEGS OCC. PM BLEEDING 08/07/15-11/16/15; HAD PROC 07/2014 ALSO. CHRONIC SINUS/ ALLERGIES, vertigo History of Any Multi-Drug Resistant Organisms: Unobtainable Past Surgical History: Breast Surgery, Cholecystectomy, Orthopedic Surgery Additional Past Surgical History / Comment(s): LT WRIST GANGLION CYST. 3 BREAST SURGERIES - BENIGN. RTR. SINUS SURGERY. D&C 07/2014. Past Anesthesia/Blood Transfusion Reactions: Motion Sickness Additional Past Anesthesia/Blood Transfusion Reaction / Comm: Claustrophobia Past Psychological History: Bipolar, Depression Additional Psychological History / Comment(s): USES [employer] W/C, but able to care for self at home. Has [employer] FEW DAYS PER WEEK. Smoking Status: Never smoker Past Alcohol Use History: None Reported Past Drug Use History: None Reported - Past Family History Mother Family Medical History: Unable to Obtain Father Family Medical History: Unable to Obtain Medications and Allergies Home Medications Medication Instructions Recorded Confirmed Type Escitalopram [Lexapro] 20 mg PO DAILY 07/31/14 08/04/18 History Levothyroxine Sodium [Synthroid] 88 mcg PO DAILY@0600 07/31/14 08/04/18 History Loratadine [Claritin] 10 mg PO DAILY 07/31/14 08/04/18 History Losartan-Hctz 50-12.5 mg [Hyzaar 1 tab PO DAILY 07/31/14 08/04/18 History 50-12.5] Metoprolol Tartrate [Lopressor] 50 mg PO HS 07/31/14 08/04/18 History QUEtiapine FUMARATE [SEROquel] 300 mg PO HS 07/31/14 08/04/18 History Linagliptin [Tradjenta] 5 mg PO DAILY@1800 11/30/15 08/04/18 History glipiZIDE [Glucotrol] 5 mg PO AC-BID 11/30/15 08/04/18 History Fluocinolone Acetonide Oil 5 drops BOTH EARS TID 04/16/16 08/04/18 History [Fluocinolone Acetonide Oil (Otic)] Meclizine [Antivert] 25 mg PO TID PRN #21 tab 04/16/16 08/04/18 Rx Warfarin [Coumadin] 5 mg PO MOTUTHFRSA 04/16/16 08/04/18 History Omeprazole 40 mg PO DAILY 12/12/16 08/04/18 History Acetaminophen [Tylenol Arthritis] 650 mg PO DAILY 08/04/18 08/04/18 History Allergies Allergy/AdvReac Type Severity Reaction Status Date / Time ciprofloxacin [From Cipro] Allergy Severe HIVES Verified 08/04/18 13:40 ciprofloxacin HCl Allergy Severe HIVES Verified 08/04/18 13:40 [From Cipro] clarithromycin [From Biaxin] Allergy Severe HIVES Verified 08/04/18 13:40 codeine Allergy Severe HIVES Verified 08/04/18 13:40 duloxetine HCl Allergy Severe Nausea Verified 08/04/18 13:40 [From Cymbalta] hydrocodone bitartrate Allergy Severe Rash/Hives Verified 08/04/18 13:40 [From Vicodin] Penicillins Allergy Severe Abdominal Verified 08/04/18 13:40 Pain Sulfa (Sulfonamide Allergy Severe HEADACHE Verified 08/04/18 13:40 Antibiotics) alprazolam [From Xanax] Allergy Unknown HIVES Verified 08/04/18 13:40 buspirone HCl [From BuSpar] Allergy Unknown Nausea & Verified 08/04/18 13:40 Vomiting clindamycin HCl Allergy Unknown HIVES Verified 08/04/18 13:40 [From Cleocin] clindamycin palmitate HCl Allergy Unknown HIVES Verified 08/04/18 13:40 [From Cleocin] clindamycin phosphate Allergy Unknown HIVES Verified 08/04/18 13:40 [From Cleocin] honey Allergy Unknown Anaphylaxis Verified 08/04/18 13:40 metformin Allergy Unknown Anaphylaxis Verified 08/04/18 13:40 cornmeal Allergy Unknown Rash/Hives Uncoded 08/03/18 12:25 Physical Examination - Knee bilateral Appearance: ecchymosis (Left proximal lateral aggarwal), varus alignment in stance Pain: with flexion (Right knee ) Gait: other (Nonambulatory) ROM: extension: -15 degrees (Right knee) ROM: flexion: 60 degrees (Right knee) Results - Labs Labs: Abnormal Lab Results - Last 24 Hours (Table) 08/04/18 08/04/18 08/04/18 Range/Units 14:08 14:08 14:08 Hgb 10.8 L (11.4-16.0) gm/dL MCH 24.8 L (25.0-35.0) pg MCHC 29.5 L (31.0-37.0) g/dL RDW 19.0 H (11.5-15.5) % PT 17.8 H (9.0-12.0) sec INR 1.8 H (<1.2) Carbon Dioxide 34 H (22-30) mmol/L BUN 19 H (7-17) mg/dL Glucose 115 H (74-99) mg/dL POC Glucose (mg/dL) (75-99) mg/dL 08/04/18 08/05/18 08/05/18 Range/Units 20:22 06:56 07:39 Hgb (11.4-16.0) gm/dL MCH (25.0-35.0) pg MCHC (31.0-37.0) g/dL RDW (11.5-15.5) % PT 19.7 H (9.0-12.0) sec INR 2.0 H (<1.2) Carbon Dioxide (22-30) mmol/L BUN (7-17) mg/dL Glucose (74-99) mg/dL POC Glucose (mg/dL) 111 H 134 H (75-99) mg/dL H & H 08/04/18 Range/Units 14:08 Hgb 10.8 L (11.4-16.0) gm/dL Hct 36.5 (34.0-46.0) % Coagulation 08/04/18 08/05/18 Range/Units 14:08 07:39 INR 1.8 H 2.0 H (<1.2) Result Diagrams: 08/04/18 14:08 08/04/18 14:08 - Diagnostic results Knee x-ray: image reviewed (Severe arthropathy by lateral knees) Knee CT: image reviewed (Severe arthropathy bilateral knees/no definite displaced fracture) Assessment and Plan Assessment: Morbid obesity History of pulmonary embolism Diabetes Severe bilateral knee arthropathy Recent bilateral knee contusions Plan: I talked with the patient regarding her condition along with treatment options. She is ALLERGIC to codeine and is on anticoagulants therefore may benefit from analgesics such as Ultram. She might also benefit from oral prednisone if she can tolerate that with her diabetes. She may require subacute rehabilitation. She can weight-bear as tolerated with a walker for transfers. We may consider intra-articular cortisone injections if not symptomatically improving over the next couple of days. Time with Patient: Greater than 30
[2018-08-05 12:01] LABS: Glucose,Whole Blood 85 mg/dL (75-99)
--- NOTE | 2018-08-05 12:56 | P.HPIM ---
History of Present Illness H&P Date: 08/05/18 Leonela Shea is a 62-year-old female who presents after falling on at home. She notes she is nonambulatory and only transfers with use of a wheelchair. She fell forward on both knees. She presented to the emergency room twice, initially she was discharged home , she developed a larger bruise around the left knee area , patient was unable to stand or walk or even transfer from her bed to her wheelchair and subsequently was admitted. She notes the right knee is very painful. She has a history of arthritis. Past Medical History Past Medical History: Asthma, COPD, Diabetes Mellitus, Hypertension, Osteoarthritis (OA), Pulmonary Embolus (PE), Skin Disorder, Thyroid Disorder Additional Past Medical History / Comment(s): OA ALEE KNEES, SHOULDERS, RT ANKLE - CORTISONE INJ IN KNEE LAST 07/2015. POSS ECZEMA. EDEMA IN LEGS OCC. PM BLEEDING 08/07/15-11/16/15; HAD PROC 07/2014 ALSO. CHRONIC SINUS/ ALLERGIES, vertigo History of Any Multi-Drug Resistant Organisms: Unobtainable Past Surgical History: Breast Surgery, Cholecystectomy, Orthopedic Surgery Additional Past Surgical History / Comment(s): LT WRIST GANGLION CYST. 3 BREAST SURGERIES - BENIGN. RTR. SINUS SURGERY. D&C 07/2014. Past Anesthesia/Blood Transfusion Reactions: Motion Sickness Additional Past Anesthesia/Blood Transfusion Reaction / Comment(s): Claustrophobia Past Psychological History: Bipolar, Depression Additional Psychological History / Comment(s): USES POWERD W/C, but able to care for self at home. 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 Smoking Status: Never smoker Past Alcohol Use History: None Reported Past Drug Use History: None Reported - Past Family History Mother Family Medical History: Unable to Obtain Father Family Medical History: Unable to Obtain Medications and Allergies Home Medications Medication Instructions Recorded Confirmed Type Escitalopram [Lexapro] 20 mg PO DAILY 07/31/14 08/04/18 History Levothyroxine Sodium [Synthroid] 88 mcg PO DAILY@0600 07/31/14 08/04/18 History Loratadine [Claritin] 10 mg PO DAILY 07/31/14 08/04/18 History Losartan-Hctz 50-12.5 mg [Hyzaar 1 tab PO DAILY 07/31/14 08/04/18 History 50-12.5] Metoprolol Tartrate [Lopressor] 50 mg PO HS 07/31/14 08/04/18 History QUEtiapine FUMARATE [SEROquel] 300 mg PO HS 07/31/14 08/04/18 History Linagliptin [Tradjenta] 5 mg PO DAILY@1800 11/30/15 08/04/18 History glipiZIDE [Glucotrol] 5 mg PO AC-BID 11/30/15 08/04/18 History Fluocinolone Acetonide Oil 5 drops BOTH EARS TID 04/16/16 08/04/18 History [Fluocinolone Acetonide Oil (Otic)] Meclizine [Antivert] 25 mg PO TID PRN #21 tab 04/16/16 08/04/18 Rx Warfarin [Coumadin] 5 mg PO MOTUTHFRSA 04/16/16 08/04/18 History Omeprazole 40 mg PO DAILY 12/12/16 08/04/18 History Acetaminophen [Tylenol Arthritis] 650 mg PO DAILY 08/04/18 08/04/18 History Allergies Allergy/AdvReac Type Severity Reaction Status Date / Time ciprofloxacin [From Cipro] Allergy Severe HIVES Verified 08/04/18 13:40 ciprofloxacin HCl Allergy Severe HIVES Verified 08/04/18 13:40 [From Cipro] clarithromycin [From Biaxin] Allergy Severe HIVES Verified 08/04/18 13:40 codeine Allergy Severe HIVES Verified 08/04/18 13:40 duloxetine HCl Allergy Severe Nausea Verified 08/04/18 13:40 [From Cymbalta] hydrocodone bitartrate Allergy Severe Rash/Hives Verified 08/04/18 13:40 [From Vicodin] Penicillins Allergy Severe Abdominal Verified 08/04/18 13:40 Pain Sulfa (Sulfonamide Allergy Severe HEADACHE Verified 08/04/18 13:40 Antibiotics) alprazolam [From Xanax] Allergy Unknown HIVES Verified 08/04/18 13:40 buspirone HCl [From BuSpar] Allergy Unknown Nausea & Verified 08/04/18 13:40 Vomiting clindamycin HCl Allergy Unknown HIVES Verified 08/04/18 13:40 [From Cleocin] clindamycin palmitate HCl Allergy Unknown HIVES Verified 08/04/18 13:40 [From Cleocin] clindamycin phosphate Allergy Unknown HIVES Verified 08/04/18 13:40 [From Cleocin] honey Allergy Unknown Anaphylaxis Verified 08/04/18 13:40 metformin Allergy Unknown Anaphylaxis Verified 08/04/18 13:40 cornmeal Allergy Unknown Rash/Hives Uncoded 08/03/18 12:25 Physical Exam Vitals: Vital Signs Temp Pulse Pulse Resp BP BP Pulse Ox 08/05/18 08:00 15 08/05/18 07:25 98.4 F 79 15 120/69 92 L 08/05/18 01:20 98.9 F 73 18 116/70 98 08/04/18 19:48 99.0 F 78 18 151/80 97 08/04/18 17:54 98.5 F 86 15 163/83 08/04/18 17:19 98.6 F 85 18 153/67 96 08/04/18 17:00 90 L 08/04/18 13:38 97.8 F 82 18 131/73 92 L Intake and Output 08/04/18 08/05/18 08/05/18 22:59 06:59 14:59 Intake Total 240 Output Total 350 Balance -350 240 Intake: Oral 240 Output: Urine 350 Other: Voiding Method Bedpan # Voids 1 2 In general patient is alert and oriented 3 in no apparent distress HEENT head normocephalic and atraumatic Neck is supple no jugular venous distention no goiter no lymphadenopathy Chest exam is clear to auscultation no crackles no wheezing Cardiac exam reveals regular heart sounds S1 and S2 no gallops no murmurs Abdomen is soft nontender no organomegaly with normal bowel sounds Extremity exam reveals no edema no cyanosis or clubbing Neurological examination reveals no gross focal deficit Results CBC & Chem 7: 08/04/18 14:08 08/04/18 14:08 Labs: Abnormal Lab Results - Last 24 Hours (Table) 08/04/18 08/04/18 08/04/18 Range/Units 14:08 14:08 14:08 Hgb 10.8 L (11.4-16.0) gm/dL MCH 24.8 L (25.0-35.0) pg MCHC 29.5 L (31.0-37.0) g/dL RDW 19.0 H (11.5-15.5) % PT 17.8 H (9.0-12.0) sec INR 1.8 H (<1.2) Carbon Dioxide 34 H (22-30) mmol/L BUN 19 H (7-17) mg/dL Glucose 115 H (74-99) mg/dL POC Glucose (mg/dL) (75-99) mg/dL 08/04/18 08/05/18 08/05/18 Range/Units 20:22 06:56 07:39 Hgb (11.4-16.0) gm/dL MCH (25.0-35.0) pg MCHC (31.0-37.0) g/dL RDW (11.5-15.5) % PT 19.7 H (9.0-12.0) sec INR 2.0 H (<1.2) Carbon Dioxide (22-30) mmol/L BUN (7-17) mg/dL Glucose (74-99) mg/dL POC Glucose (mg/dL) 111 H 134 H (75-99) mg/dL Thrombosis Risk Factor Assmnt - Choose All That Apply Each Factor Represents 1 point: Obesity (BMI >25) Other Risk Factors: Yes Each Risk Factor Represents 2 Points: Age 61-74 years Each Risk Factor Represents 3 Points: History of DVT/PE Thrombosis Risk Factor Assessment Total Risk Factor Score: 6 Thrombosis Risk Factor Assessment Level: High Risk Assessment and Plan Plan: #1 Fall with bilateral knee injury, patient has underlying severe advanced osteoarthritis #2 physical debility with inability to stand and walk and inability to transfer from her bed to her wheelchair on her own patient may need admission to a rehab unit until Her functional status improves #3 underlying history of diabetes mellitus #4 underlying history of pulmonary embolism maintained on Coumadin INR today is 2.0 #5 underlying history of asthma #6 underlying history of hypertension #7 underlying morbid obesity At this time tramadol was added for pain control Prednisone 20 mg daily was added Insulin to sliding scale was added Orthopedic surgery consult reviewed Medication reviewed continue was current management
[2018-08-05] MEDS: FLUOCINOLONE TOPICAL SCH ×3 (14:16→23:19)
[2018-08-05] MEDS: predniSONE 20 MG TAB PO SCH (14:19)
[2018-08-05 17:05] LABS: Glucose,Whole Blood 109 mg/dL (75-99)
[2018-08-05] MEDS: traMADol 50 MG TAB PO SCH ×3 (17:25→22:06)
[2018-08-05] MEDS: LINAGLIPTIN 5 MG TABLET PO SCH (17:42)
[2018-08-05] MEDS ORDERED: WARFARIN 1 MG TAB PO ONE (18:00)
[2018-08-05 19:30] LABS: Glucose,Whole Blood 153 mg/dL (75-99)
[2018-08-05] MEDS ORDERED: LINAGLIPTIN 5 MG TABLET PO SCH (20:14)
[2018-08-05] MEDS ORDERED: glipiZIDE 5 MG TAB PO SCH (20:16)
[2018-08-05] MEDS: QUEtiapine 100 MG TAB PO SCH (23:18)
[2018-08-05] MEDS: METOPROLOL TARTRATE 50 MG TAB PO SCH (23:18)
[2018-08-06 07:29] LABS: Glucose,Whole Blood 176 mg/dL (75-99)
[2018-08-06] MEDS: INSULIN ASPART (NovoLOG) 100 UNIT/ML VIAL SQ SCH ×4 (07:43→20:58)
[2018-08-06] MEDS: LOSARTAN-HCTZ 50-12.5 MG 1 EACH TAB PO SCH (07:43)
[2018-08-06] MEDS: LEVOTHYROXINE 88 MCG TAB PO SCH (07:44)
[2018-08-06] MEDS: glipiZIDE 5 MG TAB PO SCH ×2 (07:44→17:30)
[2018-08-06] MEDS: ESCITALOPRAM 20 MG TAB PO SCH (07:44)
[2018-08-06] MEDS: predniSONE 20 MG TAB PO SCH (07:44)
[2018-08-06] MEDS: LORATADINE 10 MG TAB PO SCH (07:45)
[2018-08-06] MEDS: traMADol 50 MG TAB PO SCH ×4 (07:45→23:01)
[2018-08-06] MEDS: FLUOCINOLONE TOPICAL SCH ×3 (07:46→20:59)
[2018-08-06] MEDS: PANTOPRAZOLE 40 MG TABLET PO SCH (07:46)
[2018-08-06 08:21] LABS: Anisocytosis Slight; Basophils % (A) 0 %; Eosinophils % (A) 0 %; HCT 35.1 % (34.0-46.0); HGB 10.1 gm/dL (11.4-16.0); Hypochromasia Marked; Lymphocytes # (A) 1.5 k/uL (1.0-4.8); Lymphocytes % (A) 20 %; MCH 24.9 pg (25.0-35.0); MCHC 28.8 g/dL (31.0-37.0); MCV 86.7 fL (80.0-100.0); Mean Platelet Volume 6.9; Monocytes # (A) 0.3 k/uL (0-1.0); Monocytes % (A) 4 %; Neutrophils # (A) 5.5 k/uL (1.3-7.7); Neutrophils % (A) 75 %; Platelet Count 319 k/uL (150-450); RBC 4.05 m/uL (3.80-5.40); RDW 18.9 % (11.5-15.5); WBC 7.4 k/uL (3.8-10.6)
[2018-08-06 08:24] LABS: INR 1.8 (<1.2); Prothrombin Time 18.1 sec (9.0-12.0)
[2018-08-06 08:30] LABS: Albumin 3.2 g/dL (3.5-5.0); Calcium 8.7 mg/dL (8.4-10.2); Potassium 4.4 mmol/L (3.5-5.1); Total Bilirubin 0.3 mg/dL (0.2-1.3); Total Protein 6.2 g/dL (6.3-8.2)
[2018-08-06 11:58] LABS: Glucose,Whole Blood 119 mg/dL (75-99)
--- NOTE | 2018-08-06 13:06 | P.PN ---
Subjective Progress Note Date: 08/06/18 Leonela Shea is a 62-year-old female who presents after falling on at home. She notes she is nonambulatory and only transfers with use of a wheelchair. She fell forward on both knees. She presented to the emergency room twice, initially she was discharged home , she developed a larger bruise around the left knee area , patient was unable to stand or walk or even transfer from her bed to her wheelchair and subsequently was admitted. She notes the right knee is very painful. She has a history of arthritis. On 08/06/2018 patient is alert and oriented 3. Patient is still complaining of difficulty with mobility. Patient was evaluated by orthopedic services. Per orthopedic service is patient may weight-bear as tolerated with walker for transfers. Will consider intra-articular cortisone injections if there is no improvement over the next couple days. At this time patient denies chest pain or shortness of breath. Patient denies nausea vomiting or diarrhea. Patient denies any urinary burning or frequency. Objective - Vital Signs Vital signs: Vital Signs Temp 98.0 F 08/06/18 07:00 Pulse 72 08/06/18 07:00 Resp 16 08/06/18 07:00 BP 100/60 08/06/18 07:00 Pulse Ox 95 08/06/18 09:06 Intake & Output 08/05/18 08/06/18 08/06/18 18:59 06:59 18:59 Intake Total 600 Balance 600 Intake: Oral 600 Other: Voiding Method Bedpan # Voids 5 2 2 - Exam In general patient is alert and oriented 3 in no apparent distress HEENT head normocephalic and atraumatic Neck is supple no jugular venous distention no goiter no lymphadenopathy Chest exam is clear to auscultation no crackles no wheezing Cardiac exam reveals regular heart sounds S1 and S2 no gallops no murmurs Abdomen is soft nontender no organomegaly with normal bowel sounds Extremity exam reveals no edema no cyanosis or clubbing Neurological examination reveals no gross focal deficit - Labs CBC & Chem 7: 08/06/18 07:50 08/06/18 07:50 Labs: Abnormal Lab Results - Last 24 Hours (Table) 08/05/18 08/05/18 08/06/18 Range/Units 17:04 19:28 06:55 Hgb (11.4-16.0) gm/dL MCH (25.0-35.0) pg MCHC (31.0-37.0) g/dL RDW (11.5-15.5) % PT (9.0-12.0) sec INR (<1.2) Chloride (98-107) mmol/L Carbon Dioxide (22-30) mmol/L BUN (7-17) mg/dL Glucose (74-99) mg/dL POC Glucose (mg/dL) 109 H 153 H 176 H (75-99) mg/dL Total Protein (6.3-8.2) g/dL Albumin (3.5-5.0) g/dL 08/06/18 08/06/18 08/06/18 Range/Units 07:50 07:50 07:50 Hgb 10.1 L (11.4-16.0) gm/dL MCH 24.9 L (25.0-35.0) pg MCHC 28.8 L (31.0-37.0) g/dL RDW 18.9 H (11.5-15.5) % PT 18.1 H (9.0-12.0) sec INR 1.8 H (<1.2) Chloride 97 L (98-107) mmol/L Carbon Dioxide 37 H (22-30) mmol/L BUN 22 H (7-17) mg/dL Glucose 152 H (74-99) mg/dL POC Glucose (mg/dL) (75-99) mg/dL Total Protein 6.2 L (6.3-8.2) g/dL Albumin 3.2 L (3.5-5.0) g/dL 08/06/18 Range/Units 11:41 Hgb (11.4-16.0) gm/dL MCH (25.0-35.0) pg MCHC (31.0-37.0) g/dL RDW (11.5-15.5) % PT (9.0-12.0) sec INR (<1.2) Chloride (98-107) mmol/L Carbon Dioxide (22-30) mmol/L BUN (7-17) mg/dL Glucose (74-99) mg/dL POC Glucose (mg/dL) 119 H (75-99) mg/dL Total Protein (6.3-8.2) g/dL Albumin (3.5-5.0) g/dL Assessment and Plan Assessment: #1 Fall with bilateral knee injury, patient has underlying severe advanced osteoarthritis. Patient was eval by orthopedic services at this time patient can weight-bear as tolerated with walker transfer patient may consider intra-articular cortisone injections if not dramatically improving over the next couple of days. patient started on prednisone 20 mg daily. [place] for pain #2 physical debility with inability to stand and walk and inability to transfer from her bed to her wheelchair on her own patient may need admission to a rehab unit until Her functional status improves #3 underlying history of diabetes mellitus #4 underlying history of pulmonary embolism maintained on Coumadin INR today is 2.0 #5 underlying history of asthma #6 underlying history of hypertension #7 underlying morbid obesity DVT prophylaxis Coumadin. GI prophylaxis Protonix I performed an examination of the patient and discussed their management with the Nurse Practitioner. I have reviewed the Nurse Practitioner's notes and agree with the documented findings and plan of care
--- NOTE | 2018-08-06 16:35 | P.CONS ---
History of Present Illness - Chief Complaint Walking difficulty - History of Present Illness I had the opportunity see patient for inpatient consultation with regard to walking difficulty. She was admitted to [facility] August 04 with history of fall and bilateral knee pain. Seen by Dr. Dickinson. CT scans done. Right side demonstrates midshaft tibial and fibular fractures versus motion artifact. Left-sided demonstrates chronic tibial plateau fracture. PT prescribed. OT reports supervision for upper dressing and moderate assistance for toileting. 2 person maximal assistance for lower dressing and toilet transfer and two-person total assistance for toileting. Previous functional history as elicited from patient: 62 and right-handed white female who lives in second-floor apartment with elevator, alone. Is on disability/retired. Describes independent with own laundry, sitdown shower and mobility with POV. Will take 2 steps to transfer from bed to POV. Has chore [place] for cooking and laundry. Denies tobacco or alcohol. Dr. bar jar his regular doctor. Family history mother with cancer in father with DC. Review of Systems Review of systems: ENT: Denies sneezes or discharge. Eyes: Denies discharge or photophobia. Cardiac: Denies chest pain or palpitation. Pulmonary: Denies cough or shortness of breath. Breast: Denies discharge or lumps. Gastrointestinal: Denies nausea, emesis, constipation, diarrhea. Genitourinary: Denies discharge or frequency. Musculoskeletal: Severe bilateral knee pain. Neurologic: Denies motor or sensory change. Endocrine: Denies shakes or sweats. Oncology: Denies cancers. Dermatologic: Denies rash, itching, pruritus. ALLERGY/immunology: Denies sneezes, rashes. Past Medical History Past Medical History: Asthma, COPD, Diabetes Mellitus, Hypertension, Osteoarthritis (OA), Pulmonary Embolus (PE), Skin Disorder, Thyroid Disorder Additional Past Medical History / Comment(s): OA ALEE KNEES, SHOULDERS, RT ANKLE - CORTISONE INJ IN KNEE LAST 07/2015. POSS ECZEMA. EDEMA IN LEGS OCC. PM BLEEDING 08/07/15-11/16/15; HAD PROC 07/2014 ALSO. CHRONIC SINUS/ ALLERGIES, verti go History of Any Multi-Drug Resistant Organisms: Unobtainable Past Surgical History: Breast Surgery, Cholecystectomy, Orthopedic Surgery Additional Past Surgical History / Comment(s): LT WRIST GANGLION CYST. 3 BREAST SURGERIES - BENIGN. RTR. SINUS SURGERY. D&C 07/2014. Past Anesthesia/Blood Transfusion Reactions: Motion Sickness Additional Past Anesthesia/Blood Transfusion Reaction / Comm: Claustrophobia Past Psychological History: Bipolar, Depression Additional Psychological History / Comment(s): USES POWERD W/C, but able to care for self at home. 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 Smoking Status: Never smoker Past Alcohol Use History: None Reported Past Drug Use History: None Reported - Past Family History Mother Family Medical History: Unable to Obtain Father Family Medical History: Unable to Obtain Medications and Allergies Home Medications Medication Instructions Recorded Confirmed Type Escitalopram [Lexapro] 20 mg PO DAILY 07/31/14 08/04/18 History Levothyroxine Sodium [Synthroid] 88 mcg PO DAILY@0600 07/31/14 08/04/18 History Loratadine [Claritin] 10 mg PO DAILY 07/31/14 08/04/18 History Losartan-Hctz 50-12.5 mg [Hyzaar 1 tab PO DAILY 07/31/14 08/04/18 History 50-12.5] Metoprolol Tartrate [Lopressor] 50 mg PO HS 07/31/14 08/04/18 History QUEtiapine FUMARATE [SEROquel] 300 mg PO HS 07/31/14 08/04/18 History Linagliptin [Tradjenta] 5 mg PO DAILY@1800 11/30/15 08/04/18 History glipiZIDE [Glucotrol] 5 mg PO AC-BID 11/30/15 08/04/18 History Fluocinolone Acetonide Oil 5 drops BOTH EARS TID 04/16/16 08/04/18 History [Fluocinolone Acetonide Oil (Otic)] Meclizine [Antivert] 25 mg PO TID PRN #21 tab 04/16/16 08/04/18 Rx Warfarin [Coumadin] 5 mg PO MOTUTHFRSA 04/16/16 08/04/18 History Omeprazole 40 mg PO DAILY 12/12/16 08/04/18 History Acetaminophen [Tylenol Arthritis] 650 mg PO DAILY 08/04/18 08/04/18 History Allergies Allergy/AdvReac Type Severity Reaction Status Date / Time ciprofloxacin [From Cipro] Allergy Severe HIVES Verified 08/04/18 13:40 ciprofloxacin HCl Allergy Severe HIVES Verified 08/04/18 13:40 [From Cipro] clarithromycin [From Biaxin] Allergy Severe HIVES Verified 08/04/18 13:40 codeine Allergy Severe HIVES Verified 08/04/18 13:40 duloxetine HCl Allergy Severe Nausea Verified 08/04/18 13:40 [From Cymbalta] hydrocodone bitartrate Allergy Severe Rash/Hives Verified 08/04/18 13:40 [From Vicodin] Penicillins Allergy Severe Abdominal Verified 08/04/18 13:40 Pain Sulfa (Sulfonamide Allergy Severe HEADACHE Verified 08/04/18 13:40 Antibiotics) alprazolam [From Xanax] Allergy Unknown HIVES Verified 08/04/18 13:40 buspirone HCl [From BuSpar] Allergy Unknown Nausea & Verified 08/04/18 13:40 Vomiting clindamycin HCl Allergy Unknown HIVES Verified 08/04/18 13:40 [From Cleocin] clindamycin palmitate HCl Allergy Unknown HIVES Verified 08/04/18 13:40 [From Cleocin] clindamycin phosphate Allergy Unknown HIVES Verified 08/04/18 13:40 [From Cleocin] honey Allergy Unknown Anaphylaxis Verified 08/04/18 13:40 metformin Allergy Unknown Anaphylaxis Verified 08/04/18 13:40 cornmeal Allergy Unknown Rash/Hives Uncoded 08/03/18 12:25 Physical Exam Vitals: Vital Signs Temp Pulse Resp BP Pulse Ox 08/06/18 16:00 16 08/06/18 15:00 98.1 F 70 16 100/62 97 08/06/18 09:06 95 08/06/18 07:00 98.0 F 72 16 100/60 96 08/06/18 01:44 98.7 F 84 14 126/64 94 L 08/05/18 19:33 98.2 F 87 18 121/71 94 L Intake and Output 08/06/18 08/06/18 08/06/18 06:59 14:59 22:59 Other: # Voids 2 1 Skin: Good color, texture, turgor. Bruising inferior to left knee General: Morbidly obese build and comfortable appearance. Head: Normocephalic, atraumatic. Eyes: Symmetric. Pupils equal round. Ears: Symmetric. Hearing within normal limits. Mouth: Clear. Neck: Supple. Carotid without bruit. Cardiac: Regular rate and rhythm. Lungs: Clear anteriorly and posteriorly. Abdomen: Soft active nontender obese. Extremities: Normal tone. Neurological: Mental status: Alert, cooperative, pleasant. Cranial nerves: Symmetric facial tone and trapezius. Motor: Able to elevate both arms. Active movement at ankles but unable to elevate legs. Sensation: Intact throughout. DTRs: Symmetric and equal throughout. Mobility: Unable to sit or stand at due to knee pain and long-standing disc mobility. Results CBC & Chem 7: 08/06/18 07:50 08/06/18 07:50 Labs: Abnormal Lab Results - Last 24 Hours (Table) 08/05/18 08/05/18 08/06/18 Range/Units 17:04 19:28 06:55 Hgb (11.4-16.0) gm/dL MCH (25.0-35.0) pg MCHC (31.0-37.0) g/dL RDW (11.5-15.5) % PT (9.0-12.0) sec INR (<1.2) Chloride (98-107) mmol/L Carbon Dioxide (22-30) mmol/L BUN (7-17) mg/dL Glucose (74-99) mg/dL POC Glucose (mg/dL) 109 H 153 H 176 H (75-99) mg/dL Total Protein (6.3-8.2) g/dL Albumin (3.5-5.0) g/dL 08/06/18 08/06/18 08/06/18 Range/Units 07:50 07:50 07:50 Hgb 10.1 L (11.4-16.0) gm/dL MCH 24.9 L (25.0-35.0) pg MCHC 28.8 L (31.0-37.0) g/dL RDW 18.9 H (11.5-15.5) % PT 18.1 H (9.0-12.0) sec INR 1.8 H (<1.2) Chloride 97 L (98-107) mmol/L Carbon Dioxide 37 H (22-30) mmol/L BUN 22 H (7-17) mg/dL Glucose 152 H (74-99) mg/dL POC Glucose (mg/dL) (75-99) mg/dL Total Protein 6.2 L (6.3-8.2) g/dL Albumin 3.2 L (3.5-5.0) g/dL 08/06/18 Range/Units 11:41 Hgb (11.4-16.0) gm/dL MCH (25.0-35.0) pg MCHC (31.0-37.0) g/dL RDW (11.5-15.5) % PT (9.0-12.0) sec INR (<1.2) Chloride (98-107) mmol/L Carbon Dioxide (22-30) mmol/L BUN (7-17) mg/dL Glucose (74-99) mg/dL POC Glucose (mg/dL) 119 H (75-99) mg/dL Total Protein (6.3-8.2) g/dL Albumin (3.5-5.0) g/dL Assessment and Plan (1) Knee pain Current Visit: Yes Status: Acute Code(s): M25.569 - PAIN IN UNSPECIFIED KNEE SNOMED Code(s): 69207906 Plan: Impression: 1. Walking difficulty. 2. Bilateral knee pain. a. left with chronic tibial plateau fracture B. Possible midshaft left tibia and fibular fracture. 3. Morbid obesity. 4. Diabetes. 5. Osteoarthritis 6. COPD/asthma. 7. Hypertension. Comments and plan: PT and OT prescribed. At this time patient is realistic about her ability tolerate a rehab program. Have discussed possible subacute rehab which appears more reasonable for this patient. Should also note patient previously in POV.
[2018-08-06 17:02] LABS: Glucose,Whole Blood 224 mg/dL (75-99)
[2018-08-06] MEDS: LINAGLIPTIN 5 MG TABLET PO SCH (17:30)
[2018-08-06] MEDS ORDERED: WARFARIN 3 MG TAB PO ONE (18:00)
[2018-08-06 20:43] LABS: Glucose,Whole Blood 154 mg/dL (75-99)
[2018-08-07] MEDS: METOPROLOL TARTRATE 50 MG TAB PO SCH (00:12)
[2018-08-07] MEDS: QUEtiapine 100 MG TAB PO SCH (00:12)
[2018-08-07] MEDS: LEVOTHYROXINE 88 MCG TAB PO SCH (07:09)
[2018-08-07] MEDS: glipiZIDE 5 MG TAB PO SCH ×2 (07:09→17:22)
[2018-08-07] MEDS: INSULIN ASPART (NovoLOG) 100 UNIT/ML VIAL SQ SCH ×4 (07:19→21:13)
[2018-08-07 07:32] LABS: Glucose,Whole Blood 105 mg/dL (75-99)
[2018-08-07] MEDS: PANTOPRAZOLE 40 MG TABLET PO SCH (07:33)
[2018-08-07 07:37] LABS: Anisocytosis Slight; Basophils % (A) 0 %; Eosinophils % (A) 0 %; HCT 33.3 % (34.0-46.0); HGB 9.8 gm/dL (11.4-16.0); Hypochromasia Marked; Lymphocytes % (A) 24 %; MCH 25.6 pg (25.0-35.0); MCHC 29.3 g/dL (31.0-37.0); MCV 87.4 fL (80.0-100.0); Monocytes # (A) 0.4 k/uL (0-1.0); Monocytes % (A) 4 %; Neutrophils # (A) 5.9 k/uL (1.3-7.7); Neutrophils % (A) 70 %; Platelet Count 301 k/uL (150-450); RBC 3.81 m/uL (3.80-5.40); RDW 18.1 % (11.5-15.5); WBC 8.4 k/uL (3.8-10.6)
[2018-08-07 07:53] LABS: INR 1.8 (<1.2); Prothrombin Time 17.7 sec (9.0-12.0)
[2018-08-07 08:07] LABS: ALT 24 U/L (9-52); AST 25 U/L (14-36); Albumin 3.1 g/dL (3.5-5.0); Alkaline Phosphatase 68 U/L (38-126); Anion Gap 2 mmol/L; Blood Urea Nitrogen 29 mg/dL (7-17); Calcium 8.4 mg/dL (8.4-10.2); Carbon Dioxide 39 mmol/L (22-30); Chloride 97 mmol/L (98-107); Glucose 97 mg/dL (74-99); Potassium 4.4 mmol/L (3.5-5.1); Sodium 138 mmol/L (137-145); Total Bilirubin 0.4 mg/dL (0.2-1.3); Total Protein 5.9 g/dL (6.3-8.2)
[2018-08-07] MEDS: FLUOCINOLONE TOPICAL SCH ×3 (08:40→21:15)
[2018-08-07] MEDS: LOSARTAN-HCTZ 50-12.5 MG 1 EACH TAB PO SCH (08:45)
[2018-08-07] MEDS: ESCITALOPRAM 20 MG TAB PO SCH (08:45)
[2018-08-07] MEDS: LORATADINE 10 MG TAB PO SCH (08:45)
[2018-08-07] MEDS: traMADol 50 MG TAB PO SCH ×4 (08:46→23:01)
[2018-08-07] MEDS: predniSONE 20 MG TAB PO SCH (08:46)
--- NOTE | 2018-08-07 11:10 | P.PN ---
Subjective Progress Note Date: 08/07/18 Leonela Shea is a 62-year-old female who presents after falling on at home. She notes she is nonambulatory and only transfers with use of a wheelchair. She fell forward on both knees. She presented to the emergency room twice, initially she was discharged home , she developed a larger bruise around the left knee area , patient was unable to stand or walk or even transfer from her bed to her wheelchair and subsequently was admitted. She notes the right knee is very painful. She has a history of arthritis. On 08/06/2018 patient is alert and oriented 3. Patient is still complaining of difficulty with mobility. Patient was evaluated by orthopedic services. Per orthopedic service is patient may weight-bear as tolerated with walker for transfers. Will consider intra-articular cortisone injections if there is no improvement over the next couple days. At this time patient denies chest pain or shortness of breath. Patient denies nausea vomiting or diarrhea. Patient denies any urinary burning or frequency. On 08/07/2018 patient alert and oriented 3 patient was evaluated by Dr. Aquino and recommending [facility]. Case management and social work aware. This time patient denies any chest pain or shortness of breath. Patient denies nausea vomiting or diarrhea. Patient denies any urinary burning or frequency. Objective - Vital Signs Vital signs: Vital Signs Temp 98.2 F 08/07/18 07:00 Pulse 111 H 08/07/18 07:00 Resp 16 08/07/18 07:00 BP 135/81 08/07/18 07:00 Pulse Ox 96 08/07/18 07:00 Intake & Output 08/06/18 08/07/18 08/07/18 18:59 06:59 18:59 Output Total 325 Balance -325 Output: Urine 325 Other: Voiding Method Bedpan Bedpan # Voids 1 1 1 - Exam In general patient is alert and oriented 3 in no apparent distress HEENT head normocephalic and atraumatic Neck is supple no jugular venous distention no goiter no lymphadenopathy Chest exam is clear to auscultation no crackles no wheezing Cardiac exam reveals regular heart sounds S1 and S2 no gallops no murmurs Abdomen is soft nontender no organomegaly with normal bowel sounds Extremity exam reveals no edema no cyanosis or clubbing Neurological examination reveals no gross focal deficit - Labs CBC & Chem 7: 08/07/18 06:57 08/07/18 06:57 Labs: Abnormal Lab Results - Last 24 Hours (Table) 08/06/18 08/06/18 08/06/18 Range/Units 11:41 16:30 20:32 Hgb (11.4-16.0) gm/dL Hct (34.0-46.0) % MCHC (31.0-37.0) g/dL RDW (11.5-15.5) % PT (9.0-12.0) sec INR (<1.2) Chloride (98-107) mmol/L Carbon Dioxide (22-30) mmol/L BUN (7-17) mg/dL POC Glucose (mg/dL) 119 H 224 H 154 H (75-99) mg/dL Total Protein (6.3-8.2) g/dL Albumin (3.5-5.0) g/dL 08/07/18 08/07/18 08/07/18 Range/Units 06:52 06:57 06:57 Hgb 9.8 L (11.4-16.0) gm/dL Hct 33.3 L (34.0-46.0) % MCHC 29.3 L (31.0-37.0) g/dL RDW 18.1 H (11.5-15.5) % PT 17.7 H (9.0-12.0) sec INR 1.8 H (<1.2) Chloride (98-107) mmol/L Carbon Dioxide (22-30) mmol/L BUN (7-17) mg/dL POC Glucose (mg/dL) 105 H (75-99) mg/dL Total Protein (6.3-8.2) g/dL Albumin (3.5-5.0) g/dL 08/07/18 Range/Units 06:57 Hgb (11.4-16.0) gm/dL Hct (34.0-46.0) % MCHC (31.0-37.0) g/dL RDW (11.5-15.5) % PT (9.0-12.0) sec INR (<1.2) Chloride 97 L (98-107) mmol/L Carbon Dioxide 39 H (22-30) mmol/L BUN 29 H (7-17) mg/dL POC Glucose (mg/dL) (75-99) mg/dL Total Protein 5.9 L (6.3-8.2) g/dL Albumin 3.1 L (3.5-5.0) g/dL Assessment and Plan Assessment: #1 Fall with bilateral knee injury, patient has underlying severe advanced osteoarthritis. Patient was eval by orthopedic services at this time patient can weight-bear as tolerated with walker transfer patient may consider intra- articular cortisone injections if not dramatically improving over the next couple of days. patient started on prednisone 20 mg daily. [place] for pain #2 physical debility with inability to stand and walk and inability to transfer from her bed to her wheelchair on her own patient may need admission to a rehab unit until Her functional status improves #3 underlying history of diabetes mellitus #4 underlying history of pulmonary embolism maintained on Coumadin INR today is 2.0 #5 underlying history of asthma #6 underlying history of hypertension #7 underlying morbid obesity #8. Anemia. Hemoglobin 9.8. Iron studies will be ordered #9. Tachycardia. Will order EKG and Lasix patient on cardiac monitoring. TSH and magnesium level ordered DVT prophylaxis Coumadin. GI prophylaxis Protonix Plans for DC'd in the next 48 hours to [facility] or [facility] I performed an examination of the patient and discussed their management with the Nurse Practitioner. I have reviewed the Nurse Practitioner's notes and agree with the documented findings and plan of care
[2018-08-07 12:01] LABS: Glucose,Whole Blood 80 mg/dL (75-99)
[2018-08-07 16:23] LABS: Hemoglobin A1C 6.8 % (4.0-6.0)
[2018-08-07 16:27] LABS: Iron Saturation 5.28 (12.00-45.00)
[2018-08-07 17:09] LABS: Glucose,Whole Blood 130 mg/dL (75-99)
[2018-08-07] MEDS: LINAGLIPTIN 5 MG TABLET PO SCH (17:22)
[2018-08-07] MEDS ORDERED: WARFARIN 5 MG TAB PO SCH (18:00)
[2018-08-07 21:08] LABS: Glucose,Whole Blood 130 mg/dL (75-99)
[2018-08-08] MEDS: METOPROLOL TARTRATE 50 MG TAB PO SCH ×2 (00:28→23:46)
[2018-08-08] MEDS: QUEtiapine 100 MG TAB PO SCH ×2 (00:28→23:46)
[2018-08-08 07:08] LABS: Glucose,Whole Blood 113 mg/dL (75-99)
[2018-08-08] MEDS: INSULIN ASPART (NovoLOG) 100 UNIT/ML VIAL SQ SCH ×4 (07:35→23:30)
[2018-08-08] MEDS: traMADol 50 MG TAB PO SCH ×3 (07:45→17:52)
[2018-08-08] MEDS: predniSONE 20 MG TAB PO SCH (07:45)
[2018-08-08] MEDS: LOSARTAN-HCTZ 50-12.5 MG 1 EACH TAB PO SCH (07:46)
[2018-08-08] MEDS: ESCITALOPRAM 20 MG TAB PO SCH (07:46)
[2018-08-08] MEDS: LEVOTHYROXINE 88 MCG TAB PO SCH (07:46)
[2018-08-08] MEDS: PANTOPRAZOLE 40 MG TABLET PO SCH (07:46)
[2018-08-08] MEDS: glipiZIDE 5 MG TAB PO SCH ×2 (07:46→17:52)
[2018-08-08] MEDS: LORATADINE 10 MG TAB PO SCH (07:47)
[2018-08-08 08:23] LABS: INR 1.8 (<1.2); Prothrombin Time 17.8 sec (9.0-12.0)
[2018-08-08 08:32] LABS: Albumin 3.1 g/dL (3.5-5.0); Calcium 8.4 mg/dL (8.4-10.2); Magnesium 2.1 mg/dL (1.6-2.3); Potassium 4.3 mmol/L (3.5-5.1); Total Bilirubin 0.4 mg/dL (0.2-1.3)
[2018-08-08 08:48] LABS: Anisocytosis Slight; Basophils % (A) 0 %; Eosinophils % (A) 1 %; HCT 33.5 % (34.0-46.0); HGB 9.6 gm/dL (11.4-16.0); Hypochromasia Marked; Lymphocytes % (A) 24 %; MCH 25.1 pg (25.0-35.0); MCHC 28.8 g/dL (31.0-37.0); MCV 87.3 fL (80.0-100.0); Mean Platelet Volume 7.3; Monocytes # (A) 0.4 k/uL (0-1.0); Monocytes % (A) 5 %; Neutrophils # (A) 5.7 k/uL (1.3-7.7); Neutrophils % (A) 70 %; Platelet Count 288 k/uL (150-450); RBC 3.84 m/uL (3.80-5.40); WBC 8.2 k/uL (3.8-10.6)
--- NOTE | 2018-08-08 10:51 | P.PN ---
Subjective Progress Note Date: 08/08/18 Leonela Shea is a 62-year-old female who presents after falling on at home. She notes she is nonambulatory and only transfers with use of a wheelchair. She fell forward on both knees. She presented to the emergency room twice, initially she was discharged home , she developed a larger bruise around the left knee area , patient was unable to stand or walk or even transfer from her bed to her wheelchair and subsequently was admitted. She notes the right knee is very painful. She has a history of arthritis. On 08/06/2018 patient is alert and oriented 3. Patient is still complaining of difficulty with mobility. Patient was evaluated by orthopedic services. Per orthopedic service is patient may weight-bear as tolerated with walker for transfers. Will consider intra-articular cortisone injections if there is no improvement over the next couple days. At this time patient denies chest pain or shortness of breath. Patient denies nausea vomiting or diarrhea. Patient denies any urinary burning or frequency. On 08/07/2018 patient alert and oriented 3 patient was evaluated by Dr. Aquino and recommending [facility]. Case management and social work aware. This time patient denies any chest pain or shortness of breath. Patient denies nausea vomiting or diarrhea. Patient denies any urinary burning or frequency. On 08/08/2017 patient is alert and oriented 3. Planning possible discharge to [facility] tomorrow. Patient denies chest pain or shortness breath. Patient denies nausea vomiting or diarrhea. Patient denies any urinary burning or frequency. hemoglobin low at 9.6. will start patient on ferrous sulfate. Objective - Vital Signs Vital signs: Vital Signs Temp 98 F 08/08/18 07:00 Pulse 76 08/08/18 07:00 Resp 12 08/08/18 07:00 BP 148/87 08/08/18 07:00 Pulse Ox 95 08/08/18 07:00 Intake & Output 08/07/18 08/08/18 08/08/18 18:59 06:59 18:59 Intake Total 400 250 Output Total 325 Balance 75 250 Intake: Oral 400 250 Output: Urine 325 Other: Voiding Method Bedpan Bedpan Bedpan # Voids 2 1 - Exam In general patient is alert and oriented 3 in no apparent distress HEENT head normocephalic and atraumatic Neck is supple no jugular venous distention no goiter no lymphadenopathy Chest exam is clear to auscultation no crackles no wheezing Cardiac exam reveals regular heart sounds S1 and S2 no gallops no murmurs Abdomen is soft nontender no organomegaly with normal bowel sounds Extremity exam reveals no edema no cyanosis or clubbing Neurological examination reveals no gross focal deficit - Labs CBC & Chem 7: 08/08/18 07:33 08/08/18 07:33 Labs: Abnormal Lab Results - Last 24 Hours (Table) 08/07/18 08/07/18 08/07/18 Range/Units 06:47 06:57 16:45 Hgb (11.4-16.0) gm/dL Hct (34.0-46.0) % MCHC (31.0-37.0) g/dL RDW (11.5-15.5) % PT (9.0-12.0) sec INR (<1.2) Chloride (98-107) mmol/L Carbon Dioxide (22-30) mmol/L BUN (7-17) mg/dL POC Glucose (mg/dL) 130 H (75-99) mg/dL Hemoglobin A1c 6.8 H (4.0-6.0) % Iron 20 L (50-170) ug/dL Iron Saturation 5.28 L (12.00-45.00) Total Protein (6.3-8.2) g/dL Albumin (3.5-5.0) g/dL 08/07/18 08/08/18 08/08/18 Range/Units 20:56 06:53 07:33 Hgb (11.4-16.0) gm/dL Hct (34.0-46.0) % MCHC (31.0-37.0) g/dL RDW (11.5-15.5) % PT 17.8 H (9.0-12.0) sec INR 1.8 H (<1.2) Chloride (98-107) mmol/L Carbon Dioxide (22-30) mmol/L BUN (7-17) mg/dL POC Glucose (mg/dL) 130 H 113 H (75-99) mg/dL Hemoglobin A1c (4.0-6.0) % Iron (50-170) ug/dL Iron Saturation (12.00-45.00) Total Protein (6.3-8.2) g/dL Albumin (3.5-5.0) g/dL 08/08/18 08/08/18 Range/Units 07:33 07:33 Hgb 9.6 L (11.4-16.0) gm/dL Hct 33.5 L (34.0-46.0) % MCHC 28.8 L (31.0-37.0) g/dL RDW 18.0 H (11.5-15.5) % PT (9.0-12.0) sec INR (<1.2) Chloride 96 L (98-107) mmol/L Carbon Dioxide 38 H (22-30) mmol/L BUN 31 H (7-17) mg/dL POC Glucose (mg/dL) (75-99) mg/dL Hemoglobin A1c (4.0-6.0) % Iron (50-170) ug/dL Iron Saturation (12.00-45.00) Total Protein 6.0 L (6.3-8.2) g/dL Albumin 3.1 L (3.5-5.0) g/dL Assessment and Plan Assessment: #1 Fall with bilateral knee injury, patient has underlying severe advanced osteoarthritis. Patient was eval by orthopedic services at this time patient can weight-bear as tolerated with walker transfer patient may consider intra- articular cortisone injections if not dramatically improving over the next couple of days. patient started on prednisone 20 mg daily. [place] for pain #2 physical debility with inability to stand and walk and inability to transfer from her bed to her wheelchair on her own patient may need admission to a rehab unit until Her functional status improves #3 underlying history of diabetes mellitus. Hemoglobin A1c 6.8 #4 underlying history of pulmonary embolism maintained on Coumadin INR 1.8. Pharmacy to dose. #5 underlying history of asthma #6 underlying history of hypertension #7 underlying morbid obesity #8. Iron deficiency Anemia. Hemoglobin 9.8. Iron low at 20. Saturation 5.28. Patient started on ferrous sulfate #9. Tachycardia. Resolved. Magnesium 2.1 TSH 2.080 DVT prophylaxis Coumadin. GI prophylaxis Protonix Plans for DC'd in the next 24-48 hours to [facility] I performed an examination of the patient and discussed their management with the Nurse Practitioner. I have reviewed the Nurse Practitioner's notes and agree with the documented findings and plan of care
[2018-08-08] MEDS: FLUOCINOLONE TOPICAL SCH ×3 (11:00→23:34)
[2018-08-08 12:23] LABS: Glucose,Whole Blood 122 mg/dL (75-99)
[2018-08-08 16:55] LABS: Glucose,Whole Blood 202 mg/dL (75-99)
[2018-08-08] MEDS: LINAGLIPTIN 5 MG TABLET PO SCH (17:52)
[2018-08-08] MEDS ORDERED: WARFARIN 7.5 MG TAB PO ONE (18:00)
[2018-08-08 20:13] LABS: Glucose,Whole Blood 184 mg/dL (75-99)
[2018-08-08] MEDS: FERROUS SULFATE 325 MG TAB PO SCH (23:31)
[2018-08-08 23:41] LABS: Glucose,Whole Blood 122 mg/dL (75-99)
[2018-08-09] MEDS: traMADol 50 MG TAB PO SCH ×5 (01:34→22:19)
[2018-08-09] MEDS: LEVOTHYROXINE 88 MCG TAB PO SCH (06:05)
[2018-08-09 07:10] LABS: Glucose,Whole Blood 95 mg/dL (75-99)
[2018-08-09] MEDS: INSULIN ASPART (NovoLOG) 100 UNIT/ML VIAL SQ SCH ×4 (07:17→20:32)
[2018-08-09] MEDS: ESCITALOPRAM 20 MG TAB PO SCH (07:38)
[2018-08-09] MEDS: predniSONE 20 MG TAB PO SCH (07:38)
[2018-08-09] MEDS: glipiZIDE 5 MG TAB PO SCH ×2 (07:38→17:35)
[2018-08-09] MEDS: PANTOPRAZOLE 40 MG TABLET PO SCH (07:38)
[2018-08-09] MEDS: FLUOCINOLONE TOPICAL SCH ×3 (07:39→22:21)
[2018-08-09] MEDS: LORATADINE 10 MG TAB PO SCH (07:39)
[2018-08-09] MEDS: FERROUS SULFATE 325 MG TAB PO SCH ×2 (07:39→20:23)
[2018-08-09] MEDS: LOSARTAN-HCTZ 50-12.5 MG 1 EACH TAB PO SCH (07:39)
[2018-08-09 07:54] LABS: Anisocytosis Slight; Basophils % (A) 0 %; Eosinophils % (A) 0 %; HGB 9.5 gm/dL (11.4-16.0); Hypochromasia Marked; Lymphocytes % (A) 23 %; MCH 24.5 pg (25.0-35.0); MCHC 28.1 g/dL (31.0-37.0); MCV 87.2 fL (80.0-100.0); Mean Platelet Volume 6.7; Monocytes # (A) 0.5 k/uL (0-1.0); Monocytes % (A) 5 %; Neutrophils # (A) 6.1 k/uL (1.3-7.7); Neutrophils % (A) 70 %; Platelet Count 293 k/uL (150-450); RBC 3.89 m/uL (3.80-5.40); RDW 18.6 % (11.5-15.5); WBC 8.7 k/uL (3.8-10.6)
[2018-08-09 08:01] LABS: INR 1.8 (<1.2); Prothrombin Time 18.2 sec (9.0-12.0)
[2018-08-09 08:07] LABS: ALT 31 U/L (9-52); AST 27 U/L (14-36); Albumin 3.2 g/dL (3.5-5.0); Alkaline Phosphatase 78 U/L (38-126); Blood Urea Nitrogen 29 mg/dL (7-17); Calcium 8.5 mg/dL (8.4-10.2); Chloride 93 mmol/L (98-107); Glucose 84 mg/dL (74-99); Potassium 4.4 mmol/L (3.5-5.1); Sodium 139 mmol/L (137-145); Total Bilirubin 0.4 mg/dL (0.2-1.3); Total Protein 6.1 g/dL (6.3-8.2)
[2018-08-09 08:14] LABS: Anion Gap 4 mmol/L
[2018-08-09 08:20] LABS: Carbon Dioxide 42 mmol/L (22-30)
--- NOTE | 2018-08-09 11:01 | P.PN ---
Subjective Progress Note Date: 08/09/18 Leonela Shea is a 62-year-old female who presents after falling on at home. She notes she is nonambulatory and only transfers with use of a wheelchair. She fell forward on both knees. She presented to the emergency room twice, initially she was discharged home , she developed a larger bruise around the left knee area , patient was unable to stand or walk or even transfer from her bed to her wheelchair and subsequently was admitted. She notes the right knee is very painful. She has a history of arthritis. On 08/06/2018 patient is alert and oriented 3. Patient is still complaining of difficulty with mobility. Patient was evaluated by orthopedic services. Per orthopedic service is patient may weight-bear as tolerated with walker for transfers. Will consider intra-articular cortisone injections if there is no improvement over the next couple days. At this time patient denies chest pain or shortness of breath. Patient denies nausea vomiting or diarrhea. Patient denies any urinary burning or frequency. On 08/07/2018 patient alert and oriented 3 patient was evaluated by Dr. Aquino and recommending [facility]. Case management and social work aware. This time patient denies any chest pain or shortness of breath. Patient denies nausea vomiting or diarrhea. Patient denies any urinary burning or frequency. On 08/08/2017 patient is alert and oriented 3. Planning possible discharge to [facility] tomorrow. Patient denies chest pain or shortness breath. Patient denies nausea vomiting or diarrhea. Patient denies any urinary burning or frequency. hemoglobin low at 9.6. will start patient on ferrous sulfate. 08/09/2018 patient is alert and oriented 3. Assessment patient's CO2 is elevated at 41. Will start patient on Diamox and consult pulmonary services. Chest x-ray also ordered. Patient denies any significant shortness of breath but has required 2 L of oxygen. Patient denies any chest pain or shortness of breath she denies any nausea vomiting or diarrhea. Patient denies any urinary burning or frequency Objective - Vital Signs Vital signs: Vital Signs Temp 98.2 F 08/09/18 07:00 Pulse 75 08/09/18 07:00 Resp 16 08/09/18 07:00 BP 109/70 08/09/18 07:00 Pulse Ox 95 08/09/18 07:00 Intake & Output 0508/09/18 08/09/18 18:59 06:59 18:59 Intake Total 250 180 Output Total 800 Balance 250 -800 180 Intake: Oral 250 180 Output: Urine 800 Other: Voiding Method Bedpan Bedpan # Voids 500 - Exam In general patient is alert and oriented 3 in no apparent distress HEENT head normocephalic and atraumatic Neck is supple no jugular venous distention no goiter no lymphadenopathy Chest exam is clear to auscultation no crackles no wheezing Cardiac exam reveals regular heart sounds S1 and S2 no gallops no murmurs Abdomen is soft nontender no organomegaly with normal bowel sounds Extremity exam reveals no edema no cyanosis or clubbing Neurological examination reveals no gross focal deficit - Labs CBC & Chem 7: 08/09/18 07:19 08/09/18 07:19 Labs: Abnormal Lab Results - Last 24 Hours (Table) 08/08/18 08/08/18 08/08/18 Range/Units 12:09 16:37 20:01 Hgb (11.4-16.0) gm/dL MCH (25.0-35.0) pg MCHC (31.0-37.0) g/dL RDW (11.5-15.5) % PT (9.0-12.0) sec INR (<1.2) Chloride (98-107) mmol/L Carbon Dioxide (22-30) mmol/L BUN (7-17) mg/dL POC Glucose (mg/dL) 122 H 202 H 184 H (75-99) mg/dL Total Protein (6.3-8.2) g/dL Albumin (3.5-5.0) g/dL 08/08/18 08/09/18 08/09/18 Range/Units 23:29 07:19 07:19 Hgb 9.5 L (11.4-16.0) gm/dL MCH 24.5 L (25.0-35.0) pg MCHC 28.1 L (31.0-37.0) g/dL RDW 18.6 H (11.5-15.5) % PT (9.0-12.0) sec INR (<1.2) Chloride 93 L (98-107) mmol/L Carbon Dioxide 42 H* (22-30) mmol/L BUN 29 H (7-17) mg/dL POC Glucose (mg/dL) 122 H (75-99) mg/dL Total Protein 6.1 L (6.3-8.2) g/dL Albumin 3.2 L (3.5-5.0) g/dL 08/09/18 Range/Units 07:19 Hgb (11.4-16.0) gm/dL MCH (25.0-35.0) pg MCHC (31.0-37.0) g/dL RDW (11.5-15.5) % PT 18.2 H (9.0-12.0) sec INR 1.8 H (<1.2) Chloride (98-107) mmol/L Carbon Dioxide (22-30) mmol/L BUN (7-17) mg/dL POC Glucose (mg/dL) (75-99) mg/dL Total Protein (6.3-8.2) g/dL Albumin (3.5-5.0) g/dL Assessment and Plan Assessment: #1 Fall with bilateral knee injury, patient has underlying severe advanced osteoarthritis. Patient was eval by orthopedic services at this time patient can weight-bear as tolerated with walker transfer patient may consider intra- articular cortisone injections if not dramatically improving over the next couple of days. patient started on prednisone 20 mg daily. [place] for pain #2 physical debility with inability to stand and walk and inability to transfer from her bed to her wheelchair on her own patient may need admission to a rehab unit until Her functional status improves #3 underlying history of diabetes mellitus. Hemoglobin A1c 6.8 #4 underlying history of pulmonary embolism maintained on Coumadin INR 1.8. Pharmacy to dose. #5 underlying history of asthma #6 underlying history of hypertension #7 underlying morbid obesity #8. Iron deficiency Anemia. Hemoglobin 9.8. Iron low at 20. Saturation 5.28. Patient started on ferrous sulfate #9. Tachycardia. Resolved. Magnesium 2.1 TSH 2.080 #10. Elevated CO2. CO2 41. Patient started on Diamox. Pulmonary services have been consulted chest x-ray ordered DVT prophylaxis Coumadin. GI prophylaxis Protonix Plans for DC'd in the next 24-48 hours to [facility] I performed an examination of the patient and discussed their management with the Nurse Practitioner. I have reviewed the Nurse Practitioner's notes and agree with the documented findings and plan of care
[2018-08-09 11:46] LABS: Glucose,Whole Blood 91 mg/dL (75-99)
--- NOTE | 2018-08-09 13:05 | XR ---
EXAMINATION TYPE: XR chest 2V DATE OF EXAM: 08/09/2018 COMPARISON: 12/12/2016 HISTORY: Chest pain TECHNIQUE: Frontal and lateral views of the chest are obtained. FINDINGS: Cardiomediastinal silhouette is enlarged. There is mild pulmonary vascular congestion. No sizable pleural effusion or pneumothorax. Mild multilevel degenerative changes of the spine. IMPRESSION: Mild pulmonary vascular congestion and cardiomegaly suggest decompensated congestive hea rt failure.
[2018-08-09 17:03] LABS: Glucose,Whole Blood 220 mg/dL (75-99)
[2018-08-09] MEDS: LINAGLIPTIN 5 MG TABLET PO SCH (17:20)
[2018-08-09 17:38] LABS: ABG Base Excess 14.7 mmol/L; ABG PH 7.35 (7.35-7.45); ABG PO2 68 mmHg (83-108); ABG TCO2 43 mmol/L (19-24)
[2018-08-09 17:46] LABS: ABG PCO2 73 mmHg (35-45)
[2018-08-09 17:47] LABS: ABG HCO3 40 mmol/L (21-25)
[2018-08-09] MEDS ORDERED: WARFARIN 7.5 MG TAB PO ONE (18:00)
--- NOTE | 2018-08-09 19:46 | P.CNPUL ---
History of Present Illness Consult date: 08/09/18 Chief complaint: Metabolic alkalosis History of present illness: 62-year-old morbidly obese female patient with a BMI of 71.2 presented to the [facility] thereafter she had a fall at home. The patient has been having progressive limitation her mobility and she had fallen at home and developed in her knees and she developed a large bruise over the left the area was hurting on anticoagulation. Patient was unable to stand and walk or even transfers up to the wheelchair and for that reason she was admitted. Her knees are quite painful and she is unable to bear any weight even with a walker. She has painful arthritis and obviously the weight has affected her ability to move. Her blood work, the patient's chronic metabolic alkalosis. Her serum bicarb came up to 41. She was given Diamox and the pulmonary consultation was requested. I interviewed the patient. She denies having any snoring or apneas at nighttime. She states that the head of the bed elevated. No waking up gasping for air. Nevertheless, she has obvious features of obesity hypoventilation syndrome. The chronic metabolic alkalosis probably a manifestation of that. This on this, I ordered a blood gas that showed a pH of 7.35 with episodes of 73 and pO2 of 68 and this is consistent with chronic compensated respiratory acidosis and metabolic alkalosis. This was on FiO2 of 20%. The patient had a chest x-ray that showed cardiomegaly and some pulmonary vascular congestion. Echo was ordered to assess for any significant pulmonary hypertension. history of DVT or pulmonary embolism. Most of any neuromuscular weakness. No diaphragmatic paralysis. No history of any cough or sputum production. No asthma. Emphysema. She is a nonsmoker. She is on long-term at evaluation with warfarin and her INR is at 1.8. Examination was given to her baseline history of DVT. He does not take any form of long-term painkillers and narcotics or any further form of [employer] suppressant agents. She has hypothyroidism and she is on levothyroxine supplements. Review of Systems Review of systems: ENT: Denies sneezes or discharge. Denies having any snoring or witnessed apneas. Eyes: Denies discharge or photophobia. Cardiac: Denies chest pain or palpitation. Pulmonary: Denies cough or shortness of breath. Obviously the patient has very limited exercise capacity. For now she is unable to walk and she is essentially chair bound. Breast: Denies discharge or lumps. Gastrointestinal: Denies nausea, emesis, constipation, diarrhea. Genitourinary: Denies discharge or frequency. Musculoskeletal: Severe bilateral knee pain. The patient is also some degree of swelling lower extremities bilaterally. Neurologic: Denies motor or sensory change. Motor weakness and lower extremity is a present bilaterally. Endocrine: Denies shakes or sweats. Oncology: Denies cancers. Dermatologic: Denies rash, itching, pruritus. ALLERGY/immunology: Denies sneezes, rashes. Past Medical History Past Medical History: Diabetes Mellitus, Hypertension, Osteoarthritis (OA), Pulmonary Embolus (PE), Skin Disorder, Thyroid Disorder Additional Past Medical History / Comment(s): Morbid obesity, diabetes mellitus, hypertension, previous history of pulmonary embolism/DVT, osteoarthritis, hypo thyroidism, eczema, osteoarthritis of the lower extremities including knees and ankles and the patient has received steroid shots, chronic ALLERGIC rhinitis, vertigo History of Any Multi-Drug Resistant Organisms: Unobtainable Past Surgical History: Breast Surgery, Cholecystectomy, Orthopedic Surgery Additional Past Surgical History / Comment(s): LT WRIST GANGLION CYST. 3 BREAST SURGERIES - BENIGN. RTR. SINUS SURGERY. D&C 07/2014. Past Anesthesia/Blood Transfusion Reactions: Motion Sickness Additional Past Anesthesia/Blood Transfusion Reaction / Comment(s): [place] hobia Past Psychological History: Bipolar, Depression Additional Psychological History / Comment(s): USES POWERD W/C, but able to care for self at home. 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 Smoking Status: Never smoker Past Alcohol Use History: None Reported Past Drug Use History: None Reported - Past Family History Mother Family Medical History: Unable to Obtain Father Family Medical History: Unable to Obtain Medications and Allergies Home Medications Medication Instructions Recorded Confirmed Type Escitalopram [Lexapro] 20 mg PO DAILY 07/31/14 08/04/18 History Levothyroxine Sodium [Synthroid] 88 mcg PO DAILY@0600 07/31/14 08/04/18 History Loratadine [Claritin] 10 mg PO DAILY 07/31/14 08/04/18 History Losartan-Hctz 50-12.5 mg [Hyzaar 1 tab PO DAILY 07/31/14 08/04/18 History 50-12.5] Metoprolol Tartrate [Lopressor] 50 mg PO HS 05/14/15 05/18/19 History QUEtiapine FUMARATE [SEROquel] 300 mg PO HS 07/31/14 08/04/18 History Linagliptin [Tradjenta] 5 mg PO DAILY@1800 11/30/15 08/04/18 History glipiZIDE [Glucotrol] 5 mg PO AC-BID 11/30/15 08/04/18 History Fluocinolone Acetonide Oil 5 drops BOTH EARS TID 04/16/16 08/04/18 History [Fluocinolone Acetonide Oil (Otic)] Meclizine [Antivert] 25 mg PO TID PRN #21 tab 04/16/16 08/04/18 Rx Warfarin [Coumadin] 5 mg PO MOTUTHFRSA 04/16/16 08/04/18 History Omeprazole 40 mg PO DAILY 12/12/16 08/04/18 History Acetaminophen [Tylenol Arthritis] 650 mg PO DAILY 08/04/18 08/04/18 History Allergies Allergy/AdvReac Type Severity Reaction Status Date / Time ciprofloxacin [From Cipro] Allergy Severe HIVES Verified 08/04/18 13:40 ciprofloxacin HCl Allergy Severe HIVES Verified 08/04/18 13:40 [From Cipro] clarithromycin [From Biaxin] Allergy Severe HIVES Verified 08/04/18 13:40 codeine Allergy Severe HIVES Verified 08/04/18 13:40 duloxetine HCl Allergy Severe Nausea Verified 08/04/18 13:40 [From Cymbalta] hydrocodone bitartrate Allergy Severe Rash/Hives Verified 08/04/18 13:40 [From Vicodin] Penicillins Allergy Severe Abdominal Verified 08/04/18 13:40 Pain Sulfa (Sulfonamide Allergy Severe HEADACHE Verified 08/04/18 13:40 Antibiotics) alprazolam [From Xanax] Allergy Unknown HIVES Verified 08/04/18 13:40 buspirone HCl [From BuSpar] Allergy Unknown Nausea & Verified 08/04/18 13:40 Vomiting clindamycin HCl Allergy Unknown HIVES Verified 08/04/18 13:40 [From Cleocin] clindamycin palmitate HCl Allergy Unknown HIVES Verified 08/04/18 13:40 [From Cleocin] clindamycin phosphate Allergy Unknown HIVES Verified 08/04/18 13:40 [From Cleocin] honey Allergy Unknown Anaphylaxis Verified 08/04/18 13:40 metformin Allergy Unknown Anaphylaxis Verified 08/04/18 13:40 cornmeal Allergy Unknown Rash/Hives Uncoded 08/03/18 12:25 Physical Exam Vitals: Vital Signs Temp Pulse Resp BP Pulse Ox 08/09/18 15:00 98.2 F 70 17 114/71 95 08/09/18 07:00 98.2 F 75 16 109/70 95 08/09/18 00:23 98.0 F 77 16 130/62 97 Intake and Output 08/09/18 08/09/18 08/09/18 06:59 14:59 22:59 Intake Total 670 Output Total 700 300 Balance -700 670 -300 Intake: Oral 670 Output: Urine 700 300 Other: Voiding Method Bedpan Bedpan Skin: Good color, texture, turgor. Bruising inferior to left knee General: Morbidly obese build and comfortable appearance. Head: Normocephalic, atraumatic. Eyes: Symmetric. Pupils equal round. Ears: Symmetric. Hearing within normal limits. Mouth: Clear. Neck: Supple. Carotid without bruit. Mallampati class IV. Cardiac: Regular rate and rhythm. Cardiac exam revealed the PMI to be normally situated and sized. The rhythm was regular and no extrasystoles were noted during several minutes of auscultation. The first and second heart sounds were normal and physiologic splitting of the second heart sound was noted. There were no murmurs, rubs, clicks, or gallops. Lungs: Clear anteriorly and posteriorly. The breath sounds markedly diminished in the mid and lower lung his bilaterally. No wheezes. No rhonchi. No crackles. Abdomen: Soft active nontender obese. Extremities: Normal tone. There is significant swelling in lower extremities bilaterally and obvious arthritic changes in the knees bilaterally. There is an area of bruise over the left knee area where the fall and impact occurred. Neurological: Mental status: Alert, cooperative, pleasant. Cranial nerves: Symmetric facial tone and trapezius. Motor: Able to elevate both arms. Active movement at ankles but unable to elevate legs. Sensation: Intact throughout. DTRs: Symmetric and equal throughout. Mobility: Unable to sit or stand at due to knee pain and long-standing disc mobility. Results - Laboratory Findings CBC and BMP: 08/09/18 07:19 08/09/18 07:19 ABG ABG pH 7.35 (7.35-7.45) 08/09/18 17:25 ABG pCO2 73 mmHg (35-45) H* 08/09/18 17:25 ABG pO2 68 mmHg (83-108) L 08/09/18 17:25 ABG O2 Saturation 93.0 % (94-97) L 08/09/18 17:25 PT/INR, D-dimer PT 18.2 sec (9.0-12.0) H 08/09/18 07:19 INR 1.8 (<1.2) H 08/09/18 07:19 Abnormal lab findings: Abnormal Labs 08/04/18 08/04/18 08/04/18 14:08 14:08 14:08 Hgb 10.8 L Hct MCH 24.8 L MCHC 29.5 L RDW 19.0 H PT 17.8 H INR 1.8 H ABG pCO2 ABG pO2 ABG HCO3 ABG Total CO2 ABG O2 Saturation Chloride Carbon Dioxide 34 H BUN 19 H Glucose 115 H POC Glucose (mg/dL) Hemoglobin A1c Iron Iron Saturation Total Protein Albumin 08/04/18 08/05/18 08/05/18 20:22 06:56 07:39 Hgb Hct MCH MCHC RDW PT 19.7 H INR 2.0 H ABG pCO2 ABG pO2 ABG HCO3 ABG Total CO2 ABG O2 Saturation Chloride Carbon Dioxide BUN Glucose POC Glucose (mg/dL) 111 H 134 H Hemoglobin A1c Iron Iron Saturation Total Protein Albumin 08/05/18 08/05/18 08/06/18 17:04 19:28 06:55 Hgb Hct MCH MCHC RDW PT INR ABG pCO2 ABG pO2 ABG HCO3 ABG Total CO2 ABG O2 Saturation Chloride Carbon Dioxide BUN Glucose POC Glucose (mg/dL) 109 H 153 H 176 H Hemoglobin A1c Iron Iron Saturation Total Protein Albumin 08/06/18 08/06/18 08/06/18 07:50 07:50 07:50 Hgb 10.1 L Hct MCH 24.9 L MCHC 28.8 L RDW 18.9 H PT 18.1 H INR 1.8 H ABG pCO2 ABG pO2 ABG HCO3 ABG Total CO2 ABG O2 Saturation Chloride 97 L Carbon Dioxide 37 H BUN 22 H Glucose 152 H POC Glucose (mg/dL) Hemoglobin A1c Iron Iron Saturation Total Protein 6.2 L Albumin 3.2 L 08/06/18 08/06/18 08/06/18 11:41 16:30 20:32 Hgb Hct MCH MCHC RDW PT INR ABG pCO2 ABG pO2 ABG HCO3 ABG Total CO2 ABG O2 Saturation Chloride Carbon Dioxide BUN Glucose POC Glucose (mg/dL) 119 H 224 H 154 H Hemoglobin A1c Iron Iron Saturation Total Protein Albumin 08/07/18 08/07/18 08/07/18 06:47 06:52 06:57 Hgb Hct MCH MCHC RDW PT 17.7 H INR 1.8 H ABG pCO2 ABG pO2 ABG HCO3 ABG Total CO2 ABG O2 Saturation Chloride Carbon Dioxide BUN Glucose POC Glucose (mg/dL) 105 H Hemoglobin A1c Iron 20 L Iron Saturation 5.28 L Total Protein Albumin 08/07/18 08/07/18 08/07/18 06:57 06:57 06:57 Hgb 9.8 L Hct 33.3 L MCH MCHC 29.3 L RDW 18.1 H PT INR ABG pCO2 ABG pO2 ABG HCO3 ABG Total CO2 ABG O2 Saturation Chloride 97 L Carbon Dioxide 39 H BUN 29 H Glucose POC Glucose (mg/dL) Hemoglobin A1c 6.8 H Iron Iron Saturation Total Protein 5.9 L Albumin 3.1 L 08/07/18 08/07/18 08/08/18 16:45 20:56 06:53 Hgb Hct MCH MCHC RDW PT INR ABG pCO2 ABG pO2 ABG HCO3 ABG Total CO2 ABG O2 Saturation Chloride Carbon Dioxide BUN Glucose POC Glucose (mg/dL) 130 H 130 H 113 H Hemoglobin A1c Iron Iron Saturation Total Protein Albumin 08/08/18 08/08/18 08/08/18 07:33 07:33 07:33 Hgb 9.6 L Hct 33.5 L MCH MCHC 28.8 L RDW 18.0 H PT 17.8 H INR 1.8 H ABG pCO2 ABG pO2 ABG HCO3 ABG Total CO2 ABG O2 Saturation Chloride 96 L Carbon Dioxide 38 H BUN 31 H Glucose POC Glucose (mg/dL) Hemoglobin A1c Iron Iron Saturation Total Protein 6.0 L Albumin 3.1 L 08/08/18 08/08/18 08/08/18 12:09 16:37 20:01 Hgb Hct MCH MCHC RDW PT INR ABG pCO2 ABG pO2 ABG HCO3 ABG Total CO2 ABG O2 Saturation Chloride Carbon Dioxide BUN Glucose POC Glucose (mg/dL) 122 H 202 H 184 H Hemoglobin A1c Iron Iron Saturation Total Protein Albumin 08/08/18 08/09/18 08/09/18 23:29 07:19 07:19 Hgb 9.5 L Hct MCH 24.5 L MCHC 28.1 L RDW 18.6 H PT INR ABG pCO2 ABG pO2 ABG HCO3 ABG Total CO2 ABG O2 Saturation Chloride 93 L Carbon Dioxide 42 H* BUN 29 H Glucose POC Glucose (mg/dL) 122 H Hemoglobin A1c Iron Iron Saturation Total Protein 6.1 L Albumin 3.2 L 08/09/18 08/09/18 08/09/18 07:19 17:01 17:25 Hgb Hct MCH MCHC RDW PT 18.2 H INR 1.8 H ABG pCO2 73 H* ABG pO2 68 L ABG HCO3 40 H* ABG Total CO2 43 H ABG O2 Saturation 93.0 L Chloride Carbon Dioxide BUN Glucose POC Glucose (mg/dL) 220 H Hemoglobin A1c Iron Iron Saturation Total Protein Albumin - Diagnostic Findings Chest x-ray: image reviewed Assessment and Plan Plan: 1 obesity hypoventilation syndrome with chronic hypercapnic respiratory failure and secondary metabolic alkalosis. Consider right-sided heart failure in association with obesity hypoventilation syndrome. Echocardiogram will be needed. In terms of the blood gas, there is chronic, compensated respiratory acidosis with secondary metabolic alkalosis. Chronic obstructive pulmonary lung disease or any other form of chronic lung disease felt to be less likely. No evidence of any neuromuscular weakness. An outpatient pulmonary function test may be needed to support the diagnosis. 2 morbid obesity with a BMI of 31.2 3 osteoarthritis of lower extremity is bilaterally 4 difficult mobility and the patient is unable to [id number] body weight and she is admitted due to increased risk of fall and unable to walk 5 diabetes mellitus 6 hypertension 7 remote history of pulmonary embolism and 10 on left lung and to coagulation with warfarin 8 hypothyroidism 9 chronic ALLERGIC rhinitis Plan Obtain echocardiogram to assess LV function, RV function pulmonary hypertension. No need for Diamox of the patient's chronic respiratory acidosis as well compensated with metabolic alkalosis. The patient's serum bicarbonate for drainage somewhat between 38 and 42 which should be her baseline. She may b enefit from outpatient polysomnogram to rule out concomitant obstructive sleep apnea. She weighed benefit from noninvasive positive pressure ventilation in the form of a AVAPS machine especially if she starts developing symptoms of right-sided heart failure and she develops episodic hypercapnic respiratory failure. For now condition is stable. She has been wide awake and there is no signs of any CO2 narcosis. I'm quite reassured the patient for the time being. She is going to undergo a rehabilitation evaluation by Dr. Aquino. Resume anticoagulation.
[2018-08-09] MEDS: acetaZOLAMIDE 250 MG TAB PO SCH (20:24)
[2018-08-09] MEDS: DOCUSATE 100 MG CAP PO SCH (20:25)
[2018-08-09] MEDS: METOPROLOL TARTRATE 50 MG TAB PO SCH (20:25)
[2018-08-09 20:27] LABS: Glucose,Whole Blood 188 mg/dL (75-99)
[2018-08-09] MEDS: QUEtiapine 100 MG TAB PO SCH (22:57)
[2018-08-10] MEDS: LEVOTHYROXINE 88 MCG TAB PO SCH (05:11)
[2018-08-10 07:10] LABS: Glucose,Whole Blood 90 mg/dL (75-99)
[2018-08-10] MEDS: INSULIN ASPART (NovoLOG) 100 UNIT/ML VIAL SQ SCH ×2 (07:14→12:33)
[2018-08-10 07:36] LABS: Anisocytosis Slight; Basophils % (A) 0 %; Eosinophils % (A) 0 %; HCT 31.7 % (34.0-46.0); HGB 9.7 gm/dL (11.4-16.0); Hypochromasia Marked; Lymphocytes # (A) 1.9 k/uL (1.0-4.8); Lymphocytes % (A) 20 %; MCH 25.7 pg (25.0-35.0); MCHC 30.6 g/dL (31.0-37.0); Mean Platelet Volume 6.5; Microcytosis Slight; Monocytes # (A) 0.4 k/uL (0-1.0); Monocytes % (A) 5 %; Neutrophils # (A) 6.7 k/uL (1.3-7.7); Neutrophils % (A) 73 %; Platelet Count 280 k/uL (150-450); RBC 3.77 m/uL (3.80-5.40); RDW 18.5 % (11.5-15.5); WBC 9.2 k/uL (3.8-10.6)
[2018-08-10 07:54] LABS: AST 23 U/L (14-36); Blood Urea Nitrogen 30 mg/dL (7-17); Calcium 8.6 mg/dL (8.4-10.2); Chloride 94 mmol/L (98-107); Glucose 85 mg/dL (74-99); Potassium 4.1 mmol/L (3.5-5.1); Sodium 137 mmol/L (137-145); Total Bilirubin 0.3 mg/dL (0.2-1.3); Total Protein 5.8 g/dL (6.3-8.2)
[2018-08-10 07:56] LABS: ALT 34 U/L (9-52); Alkaline Phosphatase 81 U/L (38-126)
[2018-08-10 08:04] LABS: Anion Gap 1 mmol/L
[2018-08-10 08:09] LABS: Carbon Dioxide 42 mmol/L (22-30)
[2018-08-10 08:10] LABS: INR 1.9 (<1.2)
[2018-08-10 08:11] LABS: Prothrombin Time 18.6 sec (9.0-12.0)
--- NOTE | 2018-08-10 09:06 | ECHOF ---
Referral Reason:pulmonary hypertension MEASUREMENTS -------- HEIGHT: 162.6 cm WEIGHT: 188.2 kg BP: 131/73 RVIDd: 3.6 cm (< 3.3) IVSd: 1.6 cm (0.6 - 1.1) LVIDd: 3.8 cm (3.9 - 5.3) LVPWd: 1.5 cm (0.6 - 1.1) IVSs: 2.0 cm LVIDs: 2.5 cm LVPWs: 1.9 cm LA Diam: 3.6 cm (2.7 - 3.8) Ao Diam: 3.1 cm (2.0 - 3.7) AV Cusp: 2.1 cm (1.5 - 2.6) MV EXCURSION: 17.657 mm (> 18.000) MV EF SLOPE: 74 mm/s (70 - 150) EPSS: 0.3 cm MV E Oswaldo: 1.14 m/s MV DecT: 186 ms MV A Oswaldo: 1.19 m/s MV E/A Ratio: 0.96 RAP: 5.00 mmHg RVSP: 18.11 mmHg FINDINGS -------- Sinus rhythm. This was a technically difficult study with suboptimal views. The left ventricular size is normal. There is moderate concentric left ventricular hypertrophy. O verall left ventricular systolic function is normal with, an EF between 60 - 65 %. The right ventricle is mildly enlarged. The left atrial size is normal. The right atrium was not well visualized. The aortic valve was not well visualized. The mitral valve is normal. Mild tricuspid regurgitation present. Right ventricular systolic pressure is normal at < 35 mmHg. The pulmonic valve was not well visualized. The aortic root size is normal. Normal inferior vena cava with normal inspiratory collapse consistent with estimated right atrial pre ssure of 5 mmHg. The inferior vena cava is mildly dilated. There is no pericardial effusion. CONCLUSIONS -------- 1. Sinus rhythm. 2. This was a technically difficult study with suboptimal views. 3. The left ventricular size is normal. 4. There is moderate concentric left ventricular hypertrophy. 5. Overall left ventricular systolic function is normal with, an EF between 60 - 65 %. 6. The right ventricle is mildly enlarged. 7. The left atrial size is normal. 8. The right atrium was not well visualized. 9. The aortic valve was not well visualized. 10. The mitral valve is normal. 11. Mild tricuspid regurgitation present. 12. Right ventricular systolic pressure is normal at < 35 mmHg. 13. The pulmonic valve was not well visualized. 14. The aortic root size is normal. 15. Normal inferior vena cava with normal inspiratory collapse consistent with estimated right atrial pressure of 5 mmHg. 16. The inferior vena cava is mildly dilated. 17. There is no pericardial effusion. CARGO CHECKER: Desirae Brush RDCS
[2018-08-10] MEDS: glipiZIDE 5 MG TAB PO SCH (09:12)
[2018-08-10] MEDS: predniSONE 20 MG TAB PO SCH (09:12)
[2018-08-10] MEDS: FERROUS SULFATE 325 MG TAB PO SCH ×2 (09:12→10:24)
[2018-08-10] MEDS: traMADol 50 MG TAB PO SCH ×2 (09:12→14:01)
[2018-08-10] MEDS: acetaZOLAMIDE 250 MG TAB PO SCH (09:13)
[2018-08-10] MEDS: PANTOPRAZOLE 40 MG TABLET PO SCH (09:13)
[2018-08-10] MEDS: DOCUSATE 100 MG CAP PO SCH (09:13)
[2018-08-10] MEDS: ESCITALOPRAM 20 MG TAB PO SCH (09:13)
[2018-08-10 09:50] VITALS: TEMP 98
[2018-08-10] MEDS: LORATADINE 10 MG TAB PO SCH (10:24)
[2018-08-10] MEDS: LOSARTAN-HCTZ 50-12.5 MG 1 EACH TAB PO SCH (10:24)
[2018-08-10] MEDS: FLUOCINOLONE TOPICAL SCH (10:25)
[2018-08-10 12:03] LABS: Glucose,Whole Blood 110 mg/dL (75-99)
[2018-08-10] MEDS ORDERED: FUROSEMIDE 20 MG TAB PO SCH (12:45)
--- NOTE | 2018-08-10 13:03 | P.DS ---
Providers Date of admission: 08/06/18 13:56 Expected date of discharge: 08/10/18 Attending physician: Estelle Laurent Consults: 08/04/18 15:47 Consult Physician Routine Consulting Provider: Jeramy Ya Consult Reason/Comments: knee pain Do you want consulting provider notified?: Yes 08/06/18 13:32 Consult Physician Routine Consulting Provider: Ismael Stafford Consult Reason/Comments: Inpatient rehab increased weakness Do you want consulting provider notified?: Yes 08/09/18 10:48 Consult Physician Routine Consulting Provider: Mahin Goodwin Consult Reason/Comments: Elevated CO2 Do you want consulting provider notified?: Yes Primary care physician: Estelle Laurent [facility] Course: Discharge diagnosis #1 Fall with bilateral knee injury, patient has underlying severe advanced osteoarthritis. Patient was eval by orthopedic services at this time patient can weight-bear as tolerated with walker transfer patient may consider intra-articular cortisone injections if not dramatically improving over the next couple of days. patient started on prednisone 20 mg daily. Tramadol for pain #2 physical debility with inability to stand and walk and inability to transfer from her bed to her wheelchair on her own patient may need admission to a rehab unit until Her functional status improves #3 underlying history of diabetes mellitus. Hemoglobin A1c 6.8 #4 underlying history of pulmonary embolism maintained on Coumadin INR 1.8. Pharmacy to dose. #5 underlying history of asthma #6 underlying history of hypertension #7 underlying morbid obesity #8. Iron deficiency Anemia. Hemoglobin 9.8. Iron low at 20. Saturation 5.28. Patient started on ferrous sulfate #9. Tachycardia. Resolved. Magnesium 2.1 TSH 2.080 #10. Elevated CO2. CO2 41. Patient started on Diamox. Pulmonary services have been consulted chest x-ray ordered. Per pulmonary services patient CO2 between 38 and 42 is her baseline per pulmonary. Per pulmonary she may benefit from outpatient polysomnogram to rule out obstructive sleep apnea. #11 acute diastolic congestive heart failure. 2-D echo completed showing an EF of 60-65% with normal left ventricular systolic function. Patient started on Lasix 20 mg. Hospital course eLonela Shea is a 62-year-old female who presents after falling on at home. She notes she is nonambulatory and only transfers with use of a wheelchair. She fell forward on both knees. She presented to the emergency room twice, initially she was discharged home , she developed a larger bruise around the left knee area , patient was unable to stand or walk or even transfer from her bed to her wheelchair and subsequently was admitted. She notes the right knee is very painful. She has a history of arthritis. On 08/06/2018 patient is alert and oriented 3. Patient is still complaining of difficulty with mobility. Patient was evaluated by orthopedic services. Per orthopedic service is patient may weight-bear as tolerated with walker for transfers. Will consider intra-articular cortisone injections if there is no improvement over the next couple days. At this time patient denies chest pain or shortness of breath. Patient denies nausea vomiting or diarrhea. Patient denies any urinary burning or frequency. On 08/07/2018 patient alert and oriented 3 patient was evaluated by Dr. Aquino and recommending [facility]. Case management and social work aware. This time patient denies any chest pain or shortness of breath. Patient denies nausea vomiting or diarrhea. Patient denies any urinary burning or frequency. On 08/08/2017 patient is alert and oriented 3. Planning possible discharge to [facility] tomorrow. Patient denies chest pain or shortness breath. Patient denies nausea vomiting or diarrhea. Patient denies any urinary burning or frequency. hemoglobin low at 9.6. will start patient on ferrous sulfate. 08/09/2018 patient is alert and oriented 3. Assessment patient's CO2 is elevated at 41. Will start patient on Diamox and consult pulmonary services. Chest x-ray also ordered. Patient denies any significant shortness of breath but has required 2 L of oxygen. Patient denies any chest pain or shortness of breath she denies any nausea vomiting or diarrhea. Patient denies any urinary burning or frequency On 08/10/2018 patient alert and oriented 3. Patient was evaluated by pulmonary services. Chest x-ray completed showing mild pulmonary vascular congestion and cardiomegaly suggests decompensated congestive heart failure. Patient started on 20 mg Lasix. Patient was evaluated by pulmonary services no further workup at this time. Patient to follow-up outpatient. Patient to be DC'd [facility] for rehab I performed an examination of the patient and discussed their management with the Nurse Practitioner. I have reviewed the Nurse Practitioner's notes and agree with the documented findings and plan of care Patient Condition at Discharge: Stable Plan - Discharge Summary Discharge Rx Participant: Yes New Discharge Prescriptions: New Docusate [Colace] 100 mg PO BID cap Ferrous Sulfate [Iron (65 MG Elemental)] 325 mg PO BID tab Furosemide [Lasix] 20 mg PO DAILY tab Acetaminophen Tab [Tylenol] 650 mg PO Q6HR PRN tab PRN Reason: Mild Pain Or Fever > 100.5 Continue Levothyroxine Sodium [Synthroid] 88 mcg PO DAILY@0600 QUEtiapine FUMARATE [SEROquel] 300 mg PO HS Metoprolol Tartrate [Lopressor] 50 mg PO HS Losartan-Hctz 50-12.5 mg [Hyzaar 50-12.5] 1 tab PO DAILY Loratadine [Claritin] 10 mg PO DAILY Escitalopram [Lexapro] 20 mg PO DAILY glipiZIDE [Glucotrol] 5 mg PO AC-BID Linagliptin [Tradjenta] 5 mg PO DAILY@1800 Fluocinolone Acetonide Oil [Fluocinolone Acetonide Oil (Otic)] 5 drops BOTH EARS TID Meclizine [Antivert] 25 mg PO TID PRN #21 tab PRN Reason: Vertigo Omeprazole 40 mg PO DAILY Acetaminophen [Tylenol Arthritis] 650 mg PO DAILY No Action Warfarin [[facility]oumad[facility]] [facility] Medication List Escitalopram [Lexapro] 20 mg PO DAILY 07/31/14 [History] Levothyroxine Sodium [Synthroid] 88 mcg PO DAILY@0600 07/31/14 [History] Loratadine [Claritin] 10 mg PO DAILY 07/31/14 [History] Losartan-Hctz 50-12.5 mg [Hyzaar 50-12.5] 1 tab PO DAILY 07/31/14 [History] Metoprolol Tartrate [Lopressor] 50 mg PO HS 07/31/14 [History] QUEtiapine FUMARATE [SEROquel] 300 mg PO HS 07/31/14 [History] Linagliptin [Tradjenta] 5 mg PO DAILY@1800 11/30/15 [History] glipiZIDE [Glucotrol] 5 mg PO AC-BID 11/30/15 [History] Fluocinolone Acetonide Oil [Fluocinolone Acetonide Oil (Otic)] 5 drops BOTH EARS TID 04/16/16 [History] Meclizine [Antivert] 25 mg PO TID PRN #21 tab 04/16/16 [Rx] Warfarin [Coumadin] 5 mg PO MOTUTHFRSA 04/16/16 [History] Omeprazole 40 mg PO DAILY 12/12/16 [History] Acetaminophen [Tylenol Arthritis] 650 mg PO DAILY 08/04/18 [History] Acetaminophen Tab [Tylenol] 650 mg PO Q6HR PRN tab 08/10/18 [Rx] Docusate [Colace] 100 mg PO BID cap 08/10/18 [Rx] Ferrous Sulfate [Iron (65 MG Elemental)] 325 mg PO BID tab 08/10/18 [Rx] Furosemide [Lasix] 20 mg PO DAILY tab 08/10/18 [Rx] Follow up Appointment(s)/Referral(s): Estelle Laurent MD [Primary Care Provider] - 1-2 days Discharge Disposition: TRANSFER TO SNF/ECF
[2018-08-10 15:38] VITALS: BP 122/74; PULSE 70; RESP 12
[2018-08-10] MEDS ORDERED: WARFARIN 2 MG TAB PO ONE (18:00)
== END 2018-08-10 16:00 | DRG 604 ==
LOC: EC 13:25 → 4SSUR 16:08 → OBSVTOIN 08-06 13:56
PROVIDERS: ADMIT Internal Medicine; ATTEND Internal Medicine
DX: S80.02XA Contusion of left knee, initial encounter (principal); I50.31 Acute diastolic (congestive) heart failure; S82.143A Displaced bicondylar fracture of unspecified tibia, initial encounter for closed fracture; Z68.45 Body mass index [BMI] 70 or greater, adult; E87.3 Alkalosis; S80.01XA Contusion of right knee, initial encounter; D50.9 Iron deficiency anemia, unspecified; E03.9 Hypothyroidism, unspecified; E11.9 Type 2 diabetes mellitus without complications; E66.01 Morbid (severe) obesity due to excess calories; F32.9 Major depressive disorder, single episode, unspecified; F40.240 Claustrophobia; I11.0 Hypertensive heart disease with heart failure; M17.10 Unilateral primary osteoarthritis, unspecified knee; W18.30XA Fall on same level, unspecified, initial encounter; J44.9 Chronic obstructive pulmonary disease, unspecified; E07.9 Disorder of thyroid, unspecified; G47.33 Obstructive sleep apnea (adult) (pediatric); Y92.009 Unspecified place in unspecified non-institutional (private) residence as the place of occurrence of the external cause; Z79.01 Long term (current) use of anticoagulants; Z79.84 Long term (current) use of oral hypoglycemic drugs; Z79.890 Hormone replacement therapy; Z79.899 Other long term (current) drug therapy; Z80.9 Family history of malignant neoplasm, unspecified; Z82.49 Family history of ischemic heart disease and other diseases of the circulatory system; Z86.711 Personal history of pulmonary embolism; Z86.718 Personal history of other venous thrombosis and embolism; Z88.1 Allergy status to other antibiotic agents; Z88.5 Allergy status to narcotic agent; Z88.8 Allergy status to other drugs, medicaments and biological substances; Z90.49 Acquired absence of other specified parts of digestive tract; Z91.018 Allergy to other foods
CPT/HCPCS: 36415; 36600; 71046; 80048; 80053; 82728; 82805; 83036; 83540; 83550; 83735; 84443; 85025; 85610; 93005; 93306; 94760; 99283; 99285

== ENCOUNTER 2019-11-13 01:20 | Inpatient (IN) | payer MEDICARE, OTHER ==
--- NOTE | 2019-11-13 01:53 | ED ---
Recheck HPI - General Chief Complaint: Recheck/Abnormal Lab/Rx Stated Complaint: hypotension Time Seen by Provider: 11/13/19 01:33 Source: patient, EMS Mode of arrival: EMS Limitations: physical limitation - History of Present Illness Initial Comments: Leonela is a morbidly obese 64-year-old female with extensive past medical history presents to ER today from that [facility] where they checked her blood pressure and noted that it was low. They reported a blood pressure of 54 systolic however the patient was awake alert oriented in no acute distress with warm and well-perfused extremities. Patient had labs drawn at the group home which resulted with evidence of a beta BUN and creatinine consistent with dehydration. On arrival patient's only complaint is that she had to come to the hospital. She states she feels fine and there is nothing wrong they don't know how to check her blood pressure She is here. - Related Data Home Medications Medication Instructions Recorded Confirmed Escitalopram [Lexapro] 20 mg PO DAILY 07/31/14 08/04/18 Levothyroxine Sodium [Synthroid] 88 mcg PO DAILY@0600 07/31/14 08/04/18 Loratadine [Claritin] 10 mg PO DAILY 07/31/14 08/04/18 Losartan-Hctz 50-12.5 mg [Hyzaar 1 tab PO DAILY 07/31/14 08/04/18 50-12.5] Metoprolol Tartrate [Lopressor] 50 mg PO HS 07/31/14 08/04/18 QUEtiapine FUMARATE [SEROquel] 300 mg PO HS 07/31/14 08/04/18 Linagliptin [Tradjenta] 5 mg PO DAILY@1800 11/30/15 08/04/18 glipiZIDE [Glucotrol] 5 mg PO AC-BID 11/30/15 08/04/18 fluocinolone acetonide oiL 5 drops BOTH EARS TID 04/16/16 08/04/18 [Fluocinolone Acetonide Oil (Otic)] Omeprazole 40 mg PO DAILY 12/12/16 08/04/18 Acetaminophen [Tylenol Arthritis] 650 mg PO DAILY 08/04/18 08/04/18 Previous Rx's Medication Instructions Recorded Meclizine [Antivert] 25 mg PO TID PRN #21 tab 04/16/16 Acetaminophen Tab [Tylenol] 650 mg PO Q6HR PRN tab 08/10/18 Docusate [Colace] 100 mg PO BID cap 08/10/18 Ferrous Sulfate [Iron (65 MG 325 mg PO BID tab 08/10/18 Elemental)] Furosemide [Lasix] 20 mg PO DAILY tab 08/10/18 Warfarin Sodium [Coumadin] 7.5 mg PO WEEKLY #5 tablet 08/10/18 Warfarin [Coumadin] 5 mg PO DAILY #0 08/10/18 predniSONE [Deltasone] 20 mg PO DAILY tab 08/10/18 traMADol HCl [Ultram] 50 mg PO QID PRN 120 Days #30 tab 08/10/18 Allergies Allergy/AdvReac Type Severity Reaction Status Date / Time ciprofloxacin [From Cipro] Allergy Severe HIVES Verified 10/21/19 13:49 ciprofloxacin HCl Allergy Severe HIVES Verified 10/21/19 13:49 [From Cipro] clarithromycin [From Biaxin] Allergy Severe HIVES Verified 10/21/19 13:49 codeine Allergy Severe HIVES Verified 10/21/19 13:49 duloxetine HCl Allergy Severe Nausea Verified 10/21/19 13:49 [From Cymbalta] hydrocodone bitartrate Allergy Severe Rash/Hives Verified 10/21/19 13:49 [From Vicodin] Penicillins Allergy Severe Abdominal Verified 10/21/19 13:49 Pain Sulfa (Sulfonamide Allergy Severe HEADACHE Verified 10/21/19 13:49 Antibiotics) alprazolam [From Xanax] Allergy Unknown HIVES Verified 10/21/19 13:49 buspirone HCl [From BuSpar] Allergy Unknown Nausea & Verified 10/21/19 13:49 Vomiting clindamycin HCl Allergy Unknown HIVES Verified 10/21/19 13:49 [From Cleocin] clindamycin palmitate HCl Allergy Unknown HIVES Verified 10/21/19 13:49 [From Cleocin] clindamycin phosphate Allergy Unknown HIVES Verified 10/21/19 13:49 [From Cleocin] honey Allergy Unknown Anaphylaxis Verified 10/21/19 13:49 metformin Allergy Unknown Anaphylaxis Verified 10/21/19 13:49 cornmeal Allergy Unknown Rash/Hives Uncoded 10/21/19 13:49 Review of Systems ROS Statement: Those systems with pertinent positive or pertinent negative responses have been documented in the HPI. ROS Other: All systems not noted in ROS Statement are negative. Past Medical History Past Medical History: Diabetes Mellitus, Hypertension, Osteoarthritis (OA), Pulmonary Embolus (PE), Skin Disorder, Thyroid Disorder Additional Past Medical History / Comment(s): Morbid obesity, diabetes mellitus, hypertension, previous history of pulmonary embolism/DVT, osteoarthritis, hypothyroidism, eczema, osteoarthritis of the lower extremities including knees and ankles and the patient has received steroid shots, chronic ALLERGIC rhinitis, vertigo History of Any Multi-Drug Resistant Organisms: MRSA Date of last positivie culture/infection: 06/10/19 MDRO Source:: ABDOMEN Past Surgical History: Breast Surgery, Cholecystectomy, Orthopedic Surgery Additional Past Surgical History / Comment(s): LT WRIST GANGLION CYST. 3 BREAST SURGERIES - BENIGN. RTR. SINUS SURGERY. D&C 07/2014. Past Anesthesia/Blood Transfusion Reactions: Motion Sickness Additional Past Anesthesia/Blood Transfusion Reaction / Comment(s): Claustrophobia Past Psychological History: Bipolar, Depression Smoking Status: Never smoker Past Alcohol Use History: None Reported Past Drug Use History: None Reported - Past Family History Mother Family Medical History: Unable to Obtain Father Family Medical History: Unable to Obtain General Exam - General Exam Comments Initial Comments: Physical Exam GENERAL: Chronically ill-appearing morbidly obese female in no acute distress HENT: Normocephalic, Atraumatic. EYES: PERRL, EOMI No conjunctival pallor PULMONARY: Unlabored respirations. CARDIOVASCULAR: RRR Warm and well perfused extremities Palpable DP pulses, strong radial pulses bilaterally ABDOMEN: Non-distended SKIN: Chronic wound on the right breast, dressing in place no surrounding erythema no significant amount of drainage : Deferred NEUROLOGIC: Alert and oriented Normal speech MUSCULOSKELETAL: Moving all extremities with no apparent injury PSYCHIATRIC: No SI/HI Limitations: physical limitation Course Vital Signs 11/13/19 11/13/19 01:23 02:26 Temperature 98.9 F Pulse Rate 99 89 Respiratory 18 20 Rate Blood Pressure 96/67 111/62 O2 Sat by Pulse 95 97 Oximetry Medical Decision Making - Medical Decision Making The patient was seen and evaluated history is obtained from them transferring facility as well as the patient Labs from earlier today were reviewed and patient does have an acute kidney injury she does report that they've forced her to drink 4 bottles of water since this evening due to her low blood pressure we will repeat her BMP and give gentle IV fluids Labs resulted with persistent acute kidney injury, patient had recurrent hypoglycemia, suspect due to decreased renal function patient may not be metabolizing her oral hypoglycemics as well as usual resulting in recurrent hypoglycemia. At this time I don't feel it safe for the patient be discharged back to her group home and would recommend admission to the hospital for gentle IV fluid given her history of heart failure. Close monitoring of her glucose. Patient is agreeable to this. - Lab Data Result diagrams: 11/13/19 01:59 Lab Results 11/13/19 Range/Units 01:59 Sodium 131 L (137-145) mmol/L Potassium 3.8 (3.5-5.1) mmol/L Chloride 88 L (98-107) mmol/L Carbon Dioxide 36 H (22-30) mmol/L Anion Gap 7 mmol/L BUN 34 H (7-17) mg/dL Creatinine 1.80 H (0.52-1.04) mg/dL Est GFR (CKD-EPI)AfAm 33 (>60 ml/min/1.73 sqM) Est GFR (CKD-EPI)NonAf 29 (>60 ml/min/1.73 sqM) Glucose 62 L (74-99) mg/dL Calcium 7.9 L (8.4-10.2) mg/dL Disposition Clinical Impression: VALE (acute kidney injury), CHF (congestive heart failure), Hypoglycemia, Breast abscess, Knee pain Disposition: ADMITTED IP TO THIS HOSP Condition: Stable Is patient prescribed a controlled substance at d/c from ED?: No Referrals: Frank Vera MD [Primary Care Provider] - 1-2 days
[2019-11-13] MEDS ORDERED: SODIUM CHLORIDE 0.9% 500 ML 500 ML IV ONE (01:54)
[2019-11-13 02:19] LABS: Calcium 7.9 mg/dL (8.4-10.2); Potassium 3.8 mmol/L (3.5-5.1)
[2019-11-13] MEDS ORDERED: NALOXONE 0.4 MG/ML 1 ML VIAL IV PRN (03:03)
[2019-11-13] MEDS ORDERED: traMADol 50 MG TAB PO PRN (03:04)
[2019-11-13] MEDS ORDERED: SODIUM CHLORIDE 0.9% 1,000 ML IV SCH (03:15)
[2019-11-13 03:19] LABS: Glucose,Whole Blood 98 mg/dL (75-99)
[2019-11-13 06:59] LABS: Glucose,Whole Blood 123 mg/dL (75-99)
[2019-11-13] MEDS: ESCITALOPRAM 20 MG TAB PO SCH (08:21)
[2019-11-13] MEDS: LEVOTHYROXINE 88 MCG TAB PO SCH (08:21)
[2019-11-13 11:32] LABS: Glucose,Whole Blood 87 mg/dL (75-99)
[2019-11-13] MEDS ORDERED: FLUOCINOLONE ACETONIDE OIL BOTH EARS PRN (11:46)
[2019-11-13] MEDS ORDERED: SIMETHICONE 80 MG CHEWABLE PO PRN (11:46)
[2019-11-13] MEDS ORDERED: LIDOCAINE 5% OINTMENT 50 GM JAR TOPICAL PRN (11:46)
[2019-11-13] MEDS ORDERED: METOPROLOL TARTRATE 25 MG TAB PO SCH (12:00)
[2019-11-13] MEDS: INSULIN ASPART (NovoLOG) 100 UNIT/ML VIAL SQ SCH ×2 (12:24→17:41)
[2019-11-13] MEDS: medroxyPROGESTERone 10 MG TABLET PO SCH (13:11)
[2019-11-13] MEDS: LORazepam 1 MG TAB PO SCH ×3 (13:11→17:49)
[2019-11-13] MEDS: NYSTATIN 100,000 UNIT/GM POWD 15 GM TOPICAL SCH ×2 (13:11→21:17)
[2019-11-13] MEDS: QUEtiapine 50 MG TAB PO SCH (13:15)
[2019-11-13] MEDS: PANTOPRAZOLE 40 MG TABLET PO SCH (13:15)
[2019-11-13] MEDS: SODIUM CHLORIDE 0.9% 1,000 ML IV SCH ×2 (13:23→21:54)
[2019-11-13 13:32] LABS: INR 3.6 (<1.2); Prothrombin Time 35.1 sec (9.0-12.0)
--- NOTE | 2019-11-13 16:51 | P.HPIM ---
History of Present Illness H&P Date: 11/13/19 Chief Complaint: Low blood pressure History of presenting complaint: This is a pleasant 64-year-old patient follows with Dr. DAVILA and a resident of [facility]. Chronic stable medical conditions include diabetes, hypertension, osteoporosis, hypothyroid, morbid obesity, chronic CHF COPD chronic lymphedema diabetic peripheral neuropathy. Of recent patient not able to ambulate and a Phyllis lift is being used to the [facility]. Patient was sent in because she was noticed to have a blood pressure running low on the systolic 50s. Appetite is fair. Patient has been making urine. No obvious change in medication. No fever no chills. No urinary symptoms. Patient kidney function was found to be worsened on presentation. Review of systems: GEN.: Tired occasionally dizzy EYES: None HEENT: None NECK: None RESPIRATORY: None CARDIOVASCULAR: None GASTROINTESTINAL: None GENITOURINARY: None MUSCULOSKELETAL: Joint pains LYMPHATICS: None HEMATOLOGICAL: None PSYCHIATRY: None NEUROLOGICAL: None Past medical history to include: Diabetes, hypertension, osteoarthritis, chronic DVT PE, hypothyroid, medical debility, chronic congestive heart failure EF 60-65%, COPD, chronic lymphedema, diabetic peripheral neuropathy bipolar, Social history: No history of alcohol or smoking. Currently at [facility]. Does use a Phyllis lift. Incontinent of urine. Family history: Reviewed, noncontributory to presentation Physical examination: VITAL SIGNS: 98.9, 99, 18, 96/67, 95% room air GENERAL: [BMI 78.3, sitting up in bed, eating. EYES: Pupils equal. Conjunctiva normal. HEENT: External appearance of nose and ears normal, oral cavity grossly normal. NECK: JVD not raised; masses not palpable. HEART: First and second heart sounds are normal; nonpitting edema. LUNGS:[ Respiratory rate increased; distant breath sounds. ABDOMEN: Soft, nontender, liver spleen not palpable, no masses palpable. PSYCH: Alert and oriented x3; mood and affect normal. NEUROLOGICAL: Cranial nerves grossly intact; no facial asymmetry, power and sensation grossly intact. LYMPHATICS: No lymph nodes palpable in the axilla and neck INVESTIGATIONS, reviewed in the clinical context: Potassium 3.8 bun 34 creatinine 1.80 glucose 62 Previous testing: On November 07: creatinine was 0.56 Assessment: -Symptomatic hypertension from acute kidney injury -Acute kidney 3 possibly ATN with a prerenal component from patient being on hydrochlorothiazide, Cozaar, Lasix, -Morbid obesity BMI 78.3 -Diabetes mellitus type 2, uncontrolled with hypoglycemia -Essential hypertension history of -Primary osteoarthritis -Chronic DVT PE on anticoagulation -Hypothyroid -Chronic congestive heart failure from diastolic dysfunction EF 60-65% -COPD in an ex-smoker -Chronic bilateral addiction P lymphedema -Diabetic peripheral neuropathy -Bipolar disorder stable -Chronic medical debility does use a phyllis lift Plan: We'll stop patient's hydrochlorothiazide, Lasix and Cozaar. Patient be gently hydrated. Other medications to be continued. Accu-Cheks will be followed. We'll discontinue patient's Glucotrol. Cutback Lopressor to 12.5 twice a day for now. Care was discussed with the patient. Questions were answered. Past Medical History Past Medical History: Diabetes Mellitus, Hypertension, Osteoarthritis (OA), Pulmonary Embolus (PE), Skin Disorder, Thyroid Disorder Additional Past Medical History / Comment(s): Morbid obesity, Diabetes mellitus, hypertension, previous history of pulmonary embolism/DVT, osteoarthritis, hy pothyroidism, eczema, osteoarthritis of the lower extremities including knees and ankles and the patient has received steroid shots, chronic allergic rhinitis, vertigo, congestive heart failure, COPD, lymphedema, anemia, diabetic neuropathy, History of Any Multi-Drug Resistant Organisms: MRSA Date of last positivie culture/infection: 06/10/19 MDRO Source:: ABDOMEN Past Surgical History: Breast Surgery, Cholecystectomy, Orthopedic Surgery Additional Past Surgical History / Comment(s): LT WRIST GANGLION CYST. 3 BREAST SURGERIES - BENIGN. RTR. SINUS SURGERY. D&C 07/2014. Past Anesthesia/Blood Transfusion Reactions: Motion Sickness Additional Past Anesthesia/Blood Transfusion Reaction / Comment(s): Claustrophobia Past Psychological History: Bipolar, Depression Additional Psychological History / Comment(s): Patient bedbound and uses phyllis lift at [facility] for the last 3 weeks. Per nurse from [facility], able to stand at bedside and stand a few minutes then lay back down. Patient gets all care provided via [facility]. Smoking Status: Never smoker Past Alcohol Use History: None Reported Past Drug Use History: None Reported - Past Family History Mother Family Medical History: Unable to Obtain Father Family Medical History: Unable to Obtain Medications and Allergies Home Medications Medication Instructions Recorded Confirmed Type Escitalopram [Lexapro] 20 mg PO DAILY@1000 07/31/14 11/13/19 History Levothyroxine Sodium [Synthroid] 88 mcg PO DAILY@0807/31/14 11/13/19 History Loratadine [Claritin] 10 mg PO DAILY@1000 07/31/14 11/13/19 History QUEtiapine FUMARATE [SEROquel] 300 mg PO HS@23007/31/14 11/13/19 History Linagliptin [Tradjenta] 5 mg PO DAILY@17011/30/15 11/13/19 History glipiZIDE [Glucotrol] 5 mg PO BID@0800,2300 11/30/15 11/13/19 History fluocinolone acetonide oiL 5 drops BOTH EARS BID PRN 04/16/16 11/13/19 History [Fluocinolone Acetonide Oil (Otic)] Omeprazole 20 mg PO DAILY@99912/12/16 11/13/19 History Acetaminophen Tab [Tylenol] 650 mg PO Q6HR PRN tab 08/10/18 11/13/19 Rx Acetaminophen Tab [Tylenol Tab] 500 mg PO Q6HR PRN 11/13/19 11/13/19 History Ascorbic Acid [Vitamin C] 500 mg PO DAILY@169911/13/19 11/13/19 History Calcium Carb-Vit D 500Mg-200Un 1 tab PO DAILY@169911/13/19 11/13/19 History [Oscal 500+D] Docusate [Colace] 100 mg PO BID@0800,17011/13/19 11/13/19 History Ferrous Sulfate [Iron (65 MG 325 mg PO DAILY@169911/13/19 11/13/19 History Elemental)] Fluticasone Nasal [place] [Flonase 1 spray EA NOSTRIL BID 11/13/19 11/13/19 History Nasal [place]] Furosemide [Lasix] 20 mg PO DAILY@0811/13/19 11/13/19 History Kenalog-40 Suspension 40mg/Ml 40 mg INTRAARTIC ONCE 11/13/19 11/13/19 History LORazepam [Ativan] 1 mg PO BID@1000,1700 11/13/19 11/13/19 History Lidocaine 5% Oint [Xylocaine 5% 1 applic TOPICAL HS PRN 11/13/19 11/13/19 History Oint] Lidocaine Hcl 1% Solution 2 ml INTRAARTIC ONCE 11/13/19 11/13/19 History Losartan [Cozaar] 25 mg PO DAILY@0811/13/19 11/13/19 History Magnesium Hydroxide [Milk of 7,200 mg PO Q48H PRN 11/13/19 11/13/19 History Magnesia Concentrate] Meclizine [Antivert] 12.5 mg PO TID PRN 11/13/19 11/13/19 History Medroxyprogesterone Acetate 10 mg PO DAILY@0811/13/19 11/13/19 History [Provera] Menthol [Biofreeze] 1 applic TOPICAL DAILY PRN 11/13/19 11/13/19 History Metoprolol Tartrate [Lopressor] 25 mg PO BID@0800,2300 11/13/19 11/13/19 History Na Phos,M-B/Na Phos,Di-Ba [Fleet 133 ml RECTAL DAILY PRN 11/13/19 11/13/19 History Adult] Nystatin [Nystop] 1 applic TOPICAL BID 11/13/19 11/13/19 History Potassium Chloride ER [K-Dur 10] 10 meq PO DAILY@1000 11/13/19 11/13/19 History QUEtiapine [SEROquel] 50 mg PO DAILY@1200 11/13/19 11/13/19 History Simethicone 80 mg PO PC-TID PRN 11/13/19 11/13/19 History Warfarin [Coumadin] 2.5 mg PO MOTH@1700 11/13/19 11/13/19 History Warfarin [Coumadin] 5 mg PO SUTUWEFRSA@169911/13/19 11/13/19 History bisacodyL [Bisacodyl] 10 mg RECTAL DAILY PRN 11/13/19 11/13/19 History diphenhydrAMINE [Benadryl] 25 mg PO TID PRN 11/13/19 11/13/19 History guaiFENesin [guaiFENesin Oral 100 mg PO Q4H PRN 11/13/19 11/13/19 History Solution] hydroCHLOROthiazide [Hydrodiuril] 12.5 mg PO DAILY@0800 11/13/19 11/13/19 Histor y Allergies Allergy/AdvReac Type Severity Reaction Status Date / Time ciprofloxacin [From Cipro] Allergy Severe HIVES Verified 11/13/19 09:12 ciprofloxacin HCl Allergy Severe HIVES Verified 11/13/19 09:12 [From Cipro] clarithromycin [From Biaxin] Allergy Severe HIVES Verified 11/13/19 09:12 codeine Allergy Severe HIVES Verified 11/13/19 09:12 duloxetine HCl Allergy Severe Nausea Verified 11/13/19 09:12 [From Cymbalta] hydrocodone bitartrate Allergy Severe Rash/Hives Verified 11/13/19 09:12 [From Vicodin] Penicillins Allergy Severe Abdominal Verified 11/13/19 09:12 Pain Sulfa (Sulfonamide Allergy Severe HEADACHE Verified 11/13/19 09:12 Antibiotics) alprazolam [From Xanax] Allergy Unknown HIVES Verified 11/13/19 09:12 buspirone HCl [From BuSpar] Allergy Unknown Nausea & Verified 11/13/19 09:12 Vomiting clindamycin HCl Allergy Unknown HIVES Verified 11/13/19 09:12 [From Cleocin] clindamycin palmitate HCl Allergy Unknown HIVES Verified 11/13/19 09:12 [From Cleocin] clindamycin phosphate Allergy Unknown HIVES Verified 11/13/19 09:12 [From Cleocin] honey Allergy Unknown Anaphylaxis Verified 11/13/19 09:12 metformin Allergy Unknown Anaphylaxis Verified 11/13/19 09:12 doxycycline Allergy Unknown Verified 11/13/19 09:12 cornmeal Allergy Unknown Rash/Hives Uncoded 11/13/19 09:12 Physical Exam Vitals: Vital Signs Temp Pulse Pulse Resp BP BP Pulse Ox 11/13/19 08:00 102 H 20 11/13/19 05:00 98.1 F 102 H 20 95/55 91 L 11/13/19 03:36 97.9 F 68 18 110/76 99 11/13/19 02:26 89 20 111/62 97 11/13/19 01:23 98.9 F 99 18 96/67 95 Intake and Output 11/12/19 11/13/19 11/13/19 22:59 06:59 14:59 Intake Total 815 Balance 815 Intake: Intake, IV Titration 225 Amount Sodium Chloride 0.9% 1, 225 000 ml @ 75 mls/hr IV . [id number] NOLAN Rx#:[id number] Oral 590 Other: # Voids 1 1 Weight 206.838 kg Results CBC & Chem 7: 11/13/19 01:59 Labs: Abnormal Lab Results - Last 24 Hours (Table) 11/13/19 11/13/19 Range/Units 01:59 06:59 Sodium 131 L (137-145) mmol/L Chloride 88 L (98-107) mmol/L Carbon Dioxide 36 H (22-30) mmol/L BUN 34 H (7-17) mg/dL Creatinine 1.80 H (0.52-1.04) mg/dL Glucose 62 L (74-99) mg/dL POC Glucose (mg/dL) 123 H (75-99) mg/dL Calcium 7.9 L (8.4-10.2) mg/dL Thrombosis Risk Factor Assmnt - Choose All That Apply Each Factor Represents 1 point: Abnormal pulmonary function (COPD), Obesity (BMI >25), Swollen legs (current) Each Risk Factor Represents 2 Points: Age 61-74 years, Patient confined to bed Each Risk Factor Represents 3 Points: History of DVT/PE Other congenital or acquired thrombophilia - If yes, enter type in comment: No Thrombosis Risk Factor Assessment Total Risk Factor Score: 10 Thrombosis Risk Factor Assessment Level: High Risk
[2019-11-13] MEDS ORDERED: WARFARIN 5 MG TAB PO SCH (17:00)
[2019-11-13 17:13] LABS: Glucose,Whole Blood 99 mg/dL (75-99)
[2019-11-13] MEDS: ASCORBIC ACID 500 MG TAB PO SCH (17:48)
[2019-11-13] MEDS: LINAGLIPTIN 5 MG TABLET PO SCH (17:49)
[2019-11-13] MEDS ORDERED: WARFARIN 0.5 MG TAB PO ONE (18:00)
[2019-11-13 20:40] LABS: Glucose,Whole Blood 117 mg/dL (75-99)
[2019-11-13] MEDS: METOPROLOL TARTRATE 12.5 MG TAB PO SCH (21:06)
[2019-11-13] MEDS: QUEtiapine 100 MG TAB PO SCH (21:52)
[2019-11-13] MEDS ORDERED: glipiZIDE 5 MG TAB PO SCH (23:00)
[2019-11-14] MEDS: LEVOTHYROXINE 88 MCG TAB PO SCH (04:36)
[2019-11-14 07:26] LABS: Glucose,Whole Blood 125 mg/dL (75-99)
[2019-11-14 07:32] LABS: INR 4.2 (<1.2); Prothrombin Time 41.2 sec (9.0-12.0)
[2019-11-14 07:45] LABS: Calcium 7.7 mg/dL (8.4-10.2); Potassium 3.9 mmol/L (3.5-5.1)
[2019-11-14] MEDS: INSULIN ASPART (NovoLOG) 100 UNIT/ML VIAL SQ SCH ×3 (09:31→16:58)
[2019-11-14] MEDS: PANTOPRAZOLE 40 MG TABLET PO SCH (09:52)
[2019-11-14] MEDS: medroxyPROGESTERone 10 MG TABLET PO SCH (09:52)
[2019-11-14] MEDS: NYSTATIN 100,000 UNIT/GM POWD 15 GM TOPICAL SCH ×2 (09:52→22:44)
[2019-11-14] MEDS: LORazepam 1 MG TAB PO SCH ×2 (09:52→16:57)
[2019-11-14] MEDS: SODIUM CHLORIDE 0.9% 1,000 ML IV SCH ×3 (09:52→22:42)
[2019-11-14] MEDS: METOPROLOL TARTRATE 12.5 MG TAB PO SCH ×2 (09:53→20:31)
[2019-11-14] MEDS: ESCITALOPRAM 20 MG TAB PO SCH (09:53)
--- NOTE | 2019-11-14 11:51 | P.CONS ---
History of Present Illness - Reason for Consult Consult date: 11/14/19 Wound care - History of Present Illness This is a 64-year-old patient with nonhealing ulcerations to right breast and right thigh blister. Patient currently is a patient at [facility] and sees Dr. Esteban for wound care. Previously the patient was having the right breast ulceration packed until last Monday when staff at [facility] stated that it no longer needed to be packed. Patient continues to have drainage from the site. Right groin shows a blister patient was applying instrument sheet to the area. Patient's past medical history significant for diabetes, hypertension, osteoarthritis, pulmonary embolism, hypothyroidism, osteoarthritis, congestive heart failure, COPD, lymphedema, anemia, and diabetic neuropathy. Patient is not a smoker. Patient is bedbound and uses a Phyllis lift. Review of Systems Review Of Systems: Constitutional: No fever, no chills, no night sweats. No weight change. No weakness, fatigue or lethargy. No daytime sleepiness. Integumentary:reports wounds, no lesions. No rash or pruritus. No unusual bruising. No change in hair or nails. Past Medical History Past Medical History: Diabetes Mellitus, Hypertension, Osteoarthritis (OA), Pulmonary Embolus (PE), Skin Disorder, Thyroid Disorder Additional Past Medical History / Comment(s): Morbid obesity, Diabetes mellitus, hypertension, previous history of pulmonary embolism/DVT, osteoarthritis, hypothyroidism, eczema, osteoarthritis of the lower extremities including knees and ankles and the patient has received steroid shots, chronic allergic rhinitis, vertigo, congestive heart failure, COPD, lymphedema, anemia, diabetic neuropathy, History of Any Multi-Drug Resistant Organisms: MRSA Year Discovered:: 06/10/19 MDRO Source:: ABDOMEN Past Surgical History: Breast Surgery, Cholecystectomy, Orthopedic Surgery Additional Past Surgical History / Comment(s): LT WRIST GANGLION CYST. 3 BREAST SURGERIES - BENIGN. RTR. SINUS SURGERY. D&C 07/2014. Past Anesthesia/Blood Transfusion Reactions: Motion Sickness Additional Past Anesthesia/Blood Transfusion Reaction / Comm: Claustrophobia Past Psychological History: Bipolar, Depression Additional Psychological History / Comment(s): Patient bedbound and uses phyllis lift at [facility] for the last 3 weeks. Per nurse from [facility], able to stand at [facility] and stand a few minutes then lay back down. Patient gets all care provided via [facility]. Smoking Status: Never smoker Past Alcohol Use History: None Reported Past Drug Use History: None Reported - Past Family History Mother Family Medical History: Unable to Obtain Father Family Medical History: Unable to Obtain Medications and Allergies Home Medications Medication Instructions Recorded Confirmed Type Escitalopram [Lexapro] 20 mg PO DAILY@1000 07/31/14 11/13/19 History Levothyroxine Sodium [Synthroid] 88 mcg PO DAILY@0800 07/31/14 11/13/19 History Loratadine [Claritin] 10 mg PO DAILY@99907/31/14 11/13/19 History QUEtiapine FUMARATE [SEROquel] 300 mg PO HS@2300 07/31/14 11/13/19 History Linagliptin [Tradjenta] 5 mg PO DAILY@169911/30/15 11/13/19 History glipiZIDE [Glucotrol] 5 mg PO BID@0800,2300 11/30/15 11/13/19 History fluocinolone acetonide oiL 5 drops BOTH EARS BID PRN 04/16/16 11/13/19 History [Fluocinolone Acetonide Oil (Otic)] Omeprazole 20 mg PO DAILY@99912/12/16 11/13/19 History Acetaminophen Tab [Tylenol] 650 mg PO Q6HR PRN tab 08/10/18 11/13/19 Rx Acetaminophen Tab [Tylenol Tab] 500 mg PO Q6HR PRN 11/13/19 11/13/19 History Ascorbic Acid [Vitamin C] 500 mg PO DAILY@169911/13/19 11/13/19 History Calcium Carb-Vit D 500Mg-200Un 1 tab PO DAILY@169911/13/19 11/13/19 History [Oscal 500+D] Docusate [Colace] 100 mg PO BID@0800,1700 11/13/19 11/13/19 History Ferrous Sulfate [Iron (65 MG 325 mg PO DAILY@169911/13/19 11/13/19 History Elemental)] Fluticasone Nasal [place] [Flonase 1 spray EA NOSTRIL BID 11/13/19 11/13/19 History Nasal [place]] Furosemide [Lasix] 20 mg PO DAILY@0800 11/13/19 11/13/19 History Kenalog-40 Suspension 40mg/Ml 40 mg INTRAARTIC ONCE 11/13/19 11/13/19 History LORazepam [Ativan] 1 mg PO BID@1000,1700 11/13/19 11/13/19 History Lidocaine 5% Oint [Xylocaine 5% 1 applic TOPICAL HS PRN 11/13/19 11/13/19 History Oint] Lidocaine Hcl 1% Solution 2 ml INTRAARTIC ONCE 11/13/19 11/13/19 History Losartan [Cozaar] 25 mg PO DAILY@0800 11/13/19 11/13/19 History Magnesium Hydroxide [Milk of 7,200 mg PO Q48H PRN 11/13/19 11/13/19 History Magnesia Concentrate] Meclizine [Antivert] 12.5 mg PO TID PRN 11/13/19 11/13/19 History Medroxyprogesterone Acetate 10 mg PO DAILY@0811/13/19 11/13/19 History [Provera] Menthol [Biofreeze] 1 applic TOPICAL DAILY PRN 11/13/19 11/13/19 History Metoprolol Tartrate [Lopressor] 25 mg PO BID@0800,2300 11/13/19 11/13/19 History Na Phos,M-B/Na Phos,Di-Ba [Fleet 133 ml RECTAL DAILY PRN 11/13/19 11/13/19 History Adult] Nystatin [Nystop] 1 applic TOPICAL BID 11/13/19 11/13/19 History Potassium Chloride ER [K-Dur 10] 10 meq PO DAILY@1000 11/13/19 11/13/19 History QUEtiapine [SEROquel] 50 mg PO DAILY@1200 11/13/19 11/13/19 History Simethicone 80 mg PO PC-TID PRN 11/13/19 11/13/19 History Warfarin [Coumadin] 2.5 mg PO MOTH@17011/13/19 11/13/19 History Warfarin [Coumadin] 5 mg PO SUTUWEFRSA@169911/13/19 11/13/19 History bisacodyL [Bisacodyl] 10 mg RECTAL DAILY PRN 11/13/19 11/13/19 History diphenhydrAMINE [Benadryl] 25 mg PO TID PRN 11/13/19 11/13/19 History guaiFENesin [guaiFENesin Oral 100 mg PO Q4H PRN 11/13/19 11/13/19 History Solution] hydroCHLOROthiazide [Hydrodiuril] 12.5 mg PO DAILY@0800 11/13/19 11/13/19 History Allergies Allergy/AdvReac Type Severity Reaction Status Date / Time ciprofloxacin [From Cipro] Allergy Severe HIVES Verified 11/13/19 09:12 ciprofloxacin HCl Allergy Severe HIVES Verified 11/13/19 09:12 [From Cipro] clarithromycin [From Biaxin] Allergy Severe HIVES Verified 11/13/19 09:12 codeine Allergy Severe HIVES Verified 11/13/19 09:12 duloxetine HCl Allergy Severe Nausea Verified 11/13/19 09:12 [From Cymbalta] hydrocodone bitartrate Allergy Severe Rash/Hives Verified 11/13/19 09:12 [From Vicodin] Penicillins Allergy Severe Abdominal Verified 11/13/19 09:12 Pain Sulfa (Sulfonamide Allergy Severe HEADACHE Verified 11/13/19 09:12 Antibiotics) alprazolam [From Xanax] Allergy Unknown HIVES Verified 11/13/19 09:12 buspirone HCl [From BuSpar] Allergy Unknown Nausea & Verified 11/13/19 09:12 Vomiting clindamycin HCl Allergy Unknown HIVES Verified 11/13/19 09:12 [From Cleocin] clindamycin palmitate HCl Allergy Unknown HIVES Verified 11/13/19 09:12 [From Cleocin] clindamycin phosphate Allergy Unknown HIVES Verified 11/13/19 09:12 [From Cleocin] honey Allergy Unknown Anaphylaxis Verified 11/13/19 09:12 metformin Allergy Unknown Anaphylaxis Verified 11/13/19 09:12 doxycycline Allergy Unknown Verified 11/13/19 09:12 cornmeal Allergy Unknown Rash/Hives Uncoded 11/13/19 09:12 Physical Exam Vitals: Vital Signs Temp Pulse Resp BP Pulse Ox 11/14/19 05:00 99.5 F 80 18 91/56 92 L 11/13/19 20:30 99.3 F 100 18 92/53 95 11/13/19 16:00 108 H 18 11/13/19 11:56 98.9 F 108 H 18 106/62 95 Intake and Output 11/13/19 11/14/19 11/14/19 22:59 06:59 14:59 Output Total 200 500 Balance -200 -500 Output: Urine 200 500 Other: Voiding Method Incontinent Incontinent # Voids 1 Physical exam: General Appearance: Alert, cooperative, no distress, appears stated age. Skin: Right breast ulceration measuring approximately 0.8 x 0.5 x 0.2 cm, some full thickness ulceration etiology of an abscess. Wound that shows significant Slough and minimal granulation, moderate amount of serous drainage noted. Tender to touch. Right groin blister skin is intact. Erythema noted to the periwound. all other Skin color, texture, tugor normal, no rashes or lesions. Neurologic: Alert oriented x3 Results CBC & Chem 7: 11/14/19 07:04 Labs: Abnormal Lab Results - Last 24 Hours (Table) 11/13/19 11/13/19 11/14/19 Range/Units 12:36 20:38 07:04 PT 35.1 H 41.2 H (9.0-12.0) sec INR 3.6 H 4.2 H (<1.2) Sodium (137-145) mmol/L Chloride (98-107) mmol/L Carbon Dioxide (22-30) mmol/L BUN (7-17) mg/dL Creatinine (0.52-1.04) mg/dL Glucose (74-99) mg/dL POC Glucose (mg/dL) 117 H (75-99) mg/dL Calcium (8.4-10.2) mg/dL 11/14/19 11/14/19 Range/Units 07:04 07:25 PT (9.0-12.0) sec INR (<1.2) Sodium 132 L (137-145) mmol/L Chloride 91 L (98-107) mmol/L Carbon Dioxide 35 H (22-30) mmol/L BUN 36 H (7-17) mg/dL Creatinine 1.63 H (0.52-1.04) mg/dL Glucose 116 H (74-99) mg/dL POC Glucose (mg/dL) 125 H (75-99) mg/dL Calcium 7.7 L (8.4-10.2) mg/dL Assessment and Plan (1) Non-healing ulcer of groin, limited to breakdown of skin Current Visit: Yes Status: Acute Code(s): L98.491 - NON-PRS CHRONIC ULCER SKIN/ SITES LIMITED TO BRKDWN SKIN SNOMED Code(s): 70634057 (2) Non-healing skin lesion Current Visit: Yes Status: Acute Code(s): L98.9 - DISORDER OF THE SKIN AND SUBCUTANEOUS TISSUE, UNSPECIFIED SNOMED Code(s): 10304550 (3) Diabetes mellitus with skin ulcer Current Visit: Yes Status: Acute Code(s): E11.622 - TYPE 2 DIABETES MELLITUS WITH OTHER SKIN ULCER; L98.499 - NON-PRESSURE CHRONIC ULCER OF SKIN OF SITES W UNSP SEVERITY SNOMED Code(s): 15194352 (4) Breast abscess Current Visit: Yes Status: Acute Code(s): N61.1 - ABSCESS OF THE BREAST AND NIPPLE SNOMED Code(s): 85114894 Plan: Apply moistened absorptive silver to the right breast with border foam changed Monday. Apply zinc barrier cream to the right groin and instadry sheets daily. Patient continue wound care on return to [facility]. Thank you kindly for the consultation any questions please contact the wound care center DNP note has been reviewed and discussed with Dr. Lopez and the impression and plan of care has been directed as dictated.
[2019-11-14 11:54] LABS: Glucose,Whole Blood 127 mg/dL (75-99)
[2019-11-14] MEDS: ACETAMINOPHEN TAB 325 MG TAB PO PRN (13:54)
[2019-11-14] MEDS: QUEtiapine 50 MG TAB PO SCH (13:56)
[2019-11-14 16:48] LABS: Glucose,Whole Blood 123 mg/dL (75-99)
[2019-11-14] MEDS: ASCORBIC ACID 500 MG TAB PO SCH (16:57)
[2019-11-14] MEDS: LINAGLIPTIN 5 MG TABLET PO SCH (16:57)
[2019-11-14] MEDS ORDERED: WARFARIN 2.5 MG TAB PO SCH (17:00)
[2019-11-14] MEDS ORDERED: WARFARIN 0.5 MG TAB PO ONE (18:00)
[2019-11-14 20:12] LABS: Glucose,Whole Blood 128 mg/dL (75-99)
--- NOTE | 2019-11-14 22:14 | P.PN ---
Progress Note - Text Progress Note Date: 11/14/19 Chief Complaint: Low blood pressure History of presenting complaint: This is a pleasant 64-year-old patient follows with Dr. DAVILA and a resident of [facility]. Chronic stable medical conditions include diabetes, hypertension, osteoporosis, hypothyroid, morbid obesity, chronic CHF COPD chronic lymphedema diabetic peripheral neuropathy. Of recent patient not able to ambulate and a Phyllis lift is being used to the [facility]. Patient was sent in because she was noticed to have a blood pressure running low on the systolic 50s. Appetite is fair. Patient has been making urine. No obvious change in medication. No fever no chills. No urinary symptoms. Patient kidney function was found to be worsened on presentation. Patient also being treated for right breast wound last few days. Admitted with acute kidney injury with ATN, hypotension. Diuretics and erick inhibitor discontinued. Given IV fluids. Today-sitting up, tolerating a diet. Feeling better. Systolic blood pressure 90s. Getting IV fluids. Review of systems: Was done for constitutional, cardiovascular, GI, pulmonary. relevant finding as above Active Medications Acetaminophen (Tylenol Tab) 650 mg PO Q6HR PRN PRN Reason: Mild Pain or Fever > 100.5 Last Admin: 11/14/19 13:54 Dose: 650 mg Documented by: Ascorbic Acid (Vitamin C) 500 mg PO DAILY@1700 [facility] Last Admin: 11/14/19 16:57 Dose: 500 mg Documented by: Escitalopram Oxalate (Lexapro) 20 mg PO DAILY [facility] Last Admin: 11/14/19 09:53 Dose: 20 mg Documented by: Sodium Chloride (Saline 0.9%) 1,000 mls @ 130 mls/hr IV .Q7H42M [facility] Last Admin: 11/14/19 13:54 Dose: 130 mls/hr Documented by: Insulin Aspart (Novolog) 0 unit SQ AC-TID [facility]; Protocol Last Admin: 11/14/19 16:58 Dose: Not Given Documented by: Levothyroxine Sodium (Synthroid) 88 mcg PO DAILY@0600 [facility] Last Admin: 11/14/19 04:36 Dose: 88 mcg Documented by: Lidocaine (Xylocaine 5% Oint) 1 applic TOPICAL HS PRN PRN Reason: WOUND PAIN Linagliptin (Tradjenta) 5 mg PO DAILY@1700 [facility] Last Admin: 11/14/19 16:57 Dose: 5 mg Documented by: Lorazepam (Ativan) 1 mg PO BID@1000,1700 [facility] Last Admin: 11/14/19 16:57 Dose: 1 mg Documented by: Medroxyprogesterone Acetate (Provera) 10 mg PO DAILY@0800 [facility] Last Admin: 11/14/19 09:52 Dose: 10 mg Documented by: Metoprolol Tartrate (Lopressor) 12.5 mg PO BID [facility] Last Admin: 11/14/19 20:31 Dose: 12.5 mg Documented by: Miscellaneous Information (Coumadin Per Pharmacy) 0 each MISCELLANE DIRECTED PRN PRN Reason: PHARMACY DOSING WARFARIN Naloxone HCl (Narcan) 0.2 mg IV Q2M PRN PRN Reason: Opioid Reversal Nystatin (Mycostatin Powder) 1 applic TOPICAL BID [facility] Last Admin: 11/14/19 09:52 Dose: 1 applic Documented by: Pantoprazole Sodium (Protonix) 40 mg PO DAILY@1000 [facility] Last Admin: 11/14/19 09:52 Dose: 40 mg Documented by: Quetiapine Fumarate (Seroquel) 300 mg PO HS@2300 [facility] Last Admin: 11/13/19 21:52 Dose: 300 mg Documented by: Quetiapine Fumarate (Seroquel) 50 mg PO DAILY@1200 [facility] Last Admin: 11/14/19 13:56 Dose: 50 mg Documented by: Simethicone (Mylicon Chew) 80 mg PO PC-TID PRN PRN Reason: UPPERGASTRIC DISTRESS Tramadol HCl (Ultram) 50 mg PO QID PRN PRN Reason: Pain Physical examination: VITAL SIGNS: 97.5, 115, 16, 88/55, 93% on 3 L GENERAL:, sitting up in bed, eating. EYES: Pupils equal. Conjunctiva normal. HEENT: External appearance of nose and ears normal, oral cavity grossly normal. NECK: JVD not raised; masses not palpable. Right breast has a dressing on the dependent part HEART: First and second heart sounds are normal; nonpitting edema. LUNGS:[ Respiratory rate increased; distant breath sounds. ABDOMEN: Soft, nontender, liver spleen not palpable, no masses palpable. PSYCH: Alert and oriented x3; mood and affect normal. INVESTIGATIONS, reviewed in the clinical context: INR 4.2 potassium 3.9 bun 36 creatinine 1.63 Previous testing: Bun 34 creatinine 1.80 INR 3.6 On November 07: creatinine was 0.56 Assessment: -Symptomatic hypotension from acute kidney injury -Acute kidney 3 possibly ATN with a prerenal component from patient being on hydrochlorothiazide, Cozaar, Lasix, -Morbid obesity BMI 78.3 -Diabetes mellitus type 2, uncontrolled with hypoglycemia -Essential hypertension history of -Primary osteoarthritis -Chronic DVT PE on anticoagulation -Hypothyroid -Chronic congestive heart failure from diastolic dysfunction EF 60-65% -COPD in an ex-smoker -Chronic bilateral addiction P lymphedema -Diabetic peripheral neuropathy -Bipolar disorder stable -Chronic medical debility does use a phyllis lift -Right breast wound.-Consult wound care Plan: Increase IV fluids to 1 30 mL an hour. INR being followed by pharmacy. Patient eating well. Discussed with the patient. Repeat labs in the morning.
[2019-11-14] MEDS: QUEtiapine 100 MG TAB PO SCH (22:42)
[2019-11-15] MEDS: SODIUM CHLORIDE 0.9% 1,000 ML IV SCH ×4 (06:37→22:57)
[2019-11-15] MEDS: LEVOTHYROXINE 88 MCG TAB PO SCH (06:37)
[2019-11-15 07:14] LABS: Glucose,Whole Blood 128 mg/dL (75-99)
[2019-11-15 07:48] LABS: Prothrombin Time 48.7 sec (9.0-12.0)
[2019-11-15 08:09] LABS: Calcium 7.5 mg/dL (8.4-10.2)
[2019-11-15 08:32] LABS: INR 4.9 (<1.2)
[2019-11-15] MEDS: INSULIN ASPART (NovoLOG) 100 UNIT/ML VIAL SQ SCH ×3 (09:20→17:26)
[2019-11-15] MEDS: ESCITALOPRAM 20 MG TAB PO SCH (09:27)
[2019-11-15] MEDS: medroxyPROGESTERone 10 MG TABLET PO SCH (09:27)
[2019-11-15] MEDS: METOPROLOL TARTRATE 12.5 MG TAB PO SCH ×2 (09:27→20:29)
[2019-11-15] MEDS: NYSTATIN 100,000 UNIT/GM POWD 15 GM TOPICAL SCH ×2 (09:27→20:29)
[2019-11-15] MEDS: PANTOPRAZOLE 40 MG TABLET PO SCH (10:24)
[2019-11-15] MEDS: LORazepam 1 MG TAB PO SCH ×2 (10:24→16:11)
[2019-11-15 11:38] LABS: Glucose,Whole Blood 114 mg/dL (75-99)
[2019-11-15] MEDS: QUEtiapine 50 MG TAB PO SCH (12:50)
--- NOTE | 2019-11-15 13:28 | US ---
EXAMINATION TYPE: US kidneys/renal and bladder DATE OF EXAM: 11/15/2019 COMPARISON: NONE CLINICAL HISTORY: kidney injury. EXAM MEASUREMENTS: Right Kidney: 13.0 x 4.5 x 4.4 Left Kidney: 10.0 x 5.9 x 4.0 Patient 5'4", 456lbs, technically difficult, very limited study. Right Kidney: No hydronephrosis or masses seen Left Kidney: Poor visualization, no obvious masses. Bladder: not seen There is no evidence for hydronephrosis at this point in time. No nephrolithiasis is seen. No hilda s are identified. The urinary bladder is anechoic. Bilateral ureteral jets are seen. IMPRESSION: No distinct abnormality seen.
[2019-11-15] MEDS ORDERED: METHYL SALICYLATE/MENTHOL CREAM 5 OZ TOPICAL PRN (16:00)
[2019-11-15] MEDS: LINAGLIPTIN 5 MG TABLET PO SCH (16:11)
[2019-11-15] MEDS: ASCORBIC ACID 500 MG TAB PO SCH (16:11)
[2019-11-15 17:01] LABS: Glucose,Whole Blood 120 mg/dL (75-99)
[2019-11-15] MEDS ORDERED: WARFARIN 0.5 MG TAB PO ONE (18:00)
--- NOTE | 2019-11-15 21:54 | P.PN ---
Progress Note - Text Progress Note Date: 11/15/19 Chief Complaint: Low blood pressure History of presenting complaint: This is a pleasant 64-year-old patient follows with Dr. DAVILA and a resident of [facility]. Chronic stable medical conditions include diabetes, hypertension, osteoporosis, hypothyroid, morbid obesity, chronic CHF COPD chronic lymphedema diabetic peripheral neuropathy. Of recent patient not able to ambulate and a Phyllis lift is being used to the [facility]. Patient was sent in because she was noticed to have a blood pressure running low on the systolic 50s. Appetite is fair. Patient has been making urine. No obvious change in medication. No fever no chills. No urinary symptoms. Patient kidney function was found to be worsened on presentation. Patient also being treated for right breast wound last few days. Admitted with acute kidney injury with ATN, hypotension. Diuretics and erick inhibitor discontinued. Given IV fluids. Today-sitting up, comfortable. Renal functions worsening. Discussed with the patient.. Review of systems: Was done for constitutional, cardiovascular, GI, pulmonary. relevant finding as above Active Medications Acetaminophen (Tylenol Tab) 650 mg PO Q6HR PRN PRN Reason: Mild Pain or Fever > 100.5 Last Admin: 11/14/19 13:54 Dose: 650 mg Documented by: Ascorbic Acid (Vitamin C) 500 mg PO DAILY@1700 [facility] Last Admin: 11/15/19 16:11 Dose: 500 mg Documented by: Escitalopram Oxalate (Lexapro) 20 mg PO DAILY [facility] Last Admin: 11/15/19 09:27 Dose: 20 mg Documented by: Fluticasone Propionate (Flonase Nasal [place]) 2 spray EA NOSTRIL DAILY [facility] Sodium Chloride (Saline 0.9%) 1,000 mls @ 130 mls/hr IV .Q7H42M [facility] Last Admin: 11/15/19 15:50 Dose: 130 mls/hr Documented by: Insulin Aspart (Novolog) 0 unit SQ AC-TID [facility]; Protocol Last Admin: 11/15/19 17:26 Dose: Not Given Documented by: Levothyroxine Sodium (Synthroid) 88 mcg PO DAILY@0600 [facility] Last Admin: 11/15/19 06:37 Dose: 88 mcg Documented by: Lidocaine (Xylocaine 5% Oint) 1 applic TOPICAL HS PRN PRN Reason: WOUND PAIN Linagliptin (Tradjenta) 5 mg PO DAILY@1700 [facility] Last Admin: 11/15/19 16:11 Dose: 5 mg Documented by: Lorazepam (Ativan) 1 mg PO BID@1000,1700 [facility] Last Admin: 11/15/19 16:11 Dose: 1 mg Documented by: Medroxyprogesterone Acetate (Provera) 10 mg PO DAILY@0800 [facility] Last Admin: 11/15/19 09:27 Dose: 10 mg Documented by: Methyl Salicylate (Thera-Gesic Cream) 1 applic TOPICAL TID PRN PRN Reason: Pain Metoprolol Tartrate (Lopressor) 12.5 mg PO BID [facility] Last Admin: 11/15/19 20:29 Dose: 12.5 mg Documented by: Miscellaneous Information (Coumadin Per Pharmacy) 0 each MISCELLANE DIRECTED PRN PRN Reason: PHARMACY DOSING WARFARIN Naloxone HCl (Narcan) 0.2 mg IV Q2M PRN PRN Reason: Opioid Reversal Nystatin (Mycostatin Powder) 1 applic TOPICAL BID [facility] Last Admin: 11/15/19 20:29 Dose: 1 applic Documented by: Pantoprazole Sodium (Protonix) 40 mg PO DAILY@1000 [facility] Last Admin: 11/15/19 10:24 Dose: 40 mg Documented by: Quetiapine Fumarate (Seroquel) 300 mg PO HS@2300 [facility] Last Admin: 11/14/19 22:42 Dose: 300 mg Documented by: Quetiapine Fumarate (Seroquel) 50 mg PO DAILY@1200 [facility] Last Admin: 11/15/19 12:50 Dose: 50 mg Documented by: Simethicone (Mylicon Chew) 80 mg PO PC-TID PRN PRN Reason: UPPERGASTRIC DISTRESS Tramadol HCl (Ultram) 50 mg PO QID PRN PRN Reason: Pain Physical examination: VITAL SIGNS: 97.6, 110, 16, 109/6-3, 96% on 2 L GENERAL:, Propped up in bed, eating. EYES: Pupils equal. Conjunctiva normal. NECK: JVD not raised; masses not palpable. Right breast has a dressing on the dependent part HEART: First and second heart sounds are normal; nonpitting edema. LUNGS:[ Respiratory rate increased; distant breath sounds. ABDOMEN: Soft, nontender, liver spleen not palpable, no masses palpable. PSYCH: Alert and oriented x3; mood and affect normal. INVESTIGATIONS, reviewed in the clinical context: INR 4.9 potassium 4 creatinine 2.1 Previous testing: Bun 34 creatinine 1.80 INR 3.6 On November 07: creatinine was 0.56 Assessment: -Symptomatic hypotension from acute kidney injury -Acute kidney 3 possibly ATN with a prerenal component from patient being on hydrochlorothiazide, Cozaar, Lasix,-worsening -Morbid obesity BMI 78.3 -Diabetes mellitus type 2, uncontrolled with hypoglycemia -Essential hypertension history of -Primary osteoarthritis -Chronic DVT PE on anticoagulation -Hypothyroid -Chronic congestive heart failure from diastolic dysfunction EF 60-65% -COPD in an ex-smoker -Chronic bilateral addiction P lymphedema -Diabetic peripheral neuropathy -Bipolar disorder stable -Chronic medical debility does use a phyllis lift -Right breast wound.-Consult wound care Plan: Give the patient IV fluids. Repeat labs in the morning. Get a nephrology consultation. Discussed with the patient. Do not see patient any renal offensive drugs
[2019-11-15] MEDS: QUEtiapine 100 MG TAB PO SCH (22:55)
[2019-11-15 23:26] LABS: Glucose,Whole Blood 136 mg/dL (75-99)
[2019-11-16] MEDS: LEVOTHYROXINE 88 MCG TAB PO SCH (06:02)
[2019-11-16 07:06] LABS: Glucose,Whole Blood 121 mg/dL (75-99)
[2019-11-16] MEDS: INSULIN ASPART (NovoLOG) 100 UNIT/ML VIAL SQ SCH ×3 (07:29→17:08)
[2019-11-16 07:55] LABS: INR 3.4 (<1.2); Prothrombin Time 33.5 sec (9.0-12.0)
[2019-11-16 08:32] LABS: Calcium 7.8 mg/dL (8.4-10.2); Potassium 3.8 mmol/L (3.5-5.1)
[2019-11-16] MEDS: FLUTICASONE 50MCG/SPRAY NASAL 16GM EA NOSTRIL SCH (09:43)
[2019-11-16] MEDS: medroxyPROGESTERone 10 MG TABLET PO SCH (09:44)
[2019-11-16] MEDS: ESCITALOPRAM 20 MG TAB PO SCH (09:44)
[2019-11-16] MEDS: METOPROLOL TARTRATE 12.5 MG TAB PO SCH ×2 (09:44→21:21)
[2019-11-16] MEDS: LORazepam 1 MG TAB PO SCH ×2 (09:44→16:24)
[2019-11-16] MEDS: NYSTATIN 100,000 UNIT/GM POWD 15 GM TOPICAL SCH ×2 (09:45→21:22)
[2019-11-16] MEDS: PANTOPRAZOLE 40 MG TABLET PO SCH (09:45)
[2019-11-16 11:25] LABS: Glucose,Whole Blood 109 mg/dL (75-99)
[2019-11-16] MEDS: QUEtiapine 50 MG TAB PO SCH (12:38)
--- NOTE | 2019-11-16 13:06 | CONS ---
CONSULTATION REASON FOR CONSULT: Renal failure. HISTORY OF PRESENT ILLNESS: Patient is a 64-year-old female who was admitted to the hospital with severe hypotension. Patient resides at [facility] and follows with Dr. Esteban at the wound clinic for breast laceration and nonhealing ulcer in the groin. The patient also has a right breast abscess which is under treatment. Her blood pressure had been as low as 50s for systolic according to her. She states she was making much less urine on initial admission. Serum creatinine was 1.8 and 2 mg/dL. Today it is down to 1.76. Review of previous labs show serum creatinine 0.56 on 11/08/2019. It does not look like patient has received any IV contrast recently. Ultrasound of the kidneys shows no evidence of hydronephrosis. UA is not done this admission. Currently patient is maintained on IV fluids. PAST MEDICAL HISTORY: Type 2 diabetes, hypertension, osteoarthritis, history of PE, hypothyroidism, morbid obesity, eczema, history of breast abscess, bipolar disorder. PAST SURGICAL HISTORY: Cholecystectomy, left wrist ganglion cyst removal, sinus surgery, D and C. SOCIAL HISTORY: Negative for smoking, drug abuse or alcohol abuse. MEDICATIONS: Prior to admission included metoprolol, Seroquel, Tradjenta, Glucotrol, omeprazole, Tylenol arthritis, Antivert, Colace, iron, Lasix, Coumadin, Deltasone and Ultram. ALLERGIES: Multiple, please see list. EXAMINATION: Patient is comfortable, awake, alert, oriented x3, not in any acute distress. Blood pressure was 92/57, heart rate 110 per minute, she is afebrile. Examination of the heart S1, S2. Examination of the lungs, bilateral breath sounds are heard. Abdomen is soft nontender obese. Exam of lower extremities shows no significant edema. [employer] exam is grossly intact. LABS: Sodium 130, potassium 3.8, chloride 93, CO2 is 31, BUN 42, creatinine 1.76. ASSESSMENT: 1. Acute kidney injury associated with hypotension, currently improved. Repeat labs in a.m. Continue with IV fluids but decrease the rate to about 70 mL an hour. 2. Chronic lymphedema. 3. Type 2 diabetes. 4. History of right breast abscess. 5. History of diastolic congestive heart failure. 6. History of bipolar disorder. 7. History of hypertension, blood pressure is currently low patient is off antihypertensive medications. PLAN: Repeat labs in a.m. Decrease IV fluids to about 70 mL an hour. Continue to hold off on antihypertensive medications for now. Check urinalysis. Thank you for this consultation. Will continue to follow the patient with you during her hospitalization. TORIBIO / DANIELE: [id number] /
[2019-11-16] MEDS: SODIUM CHLORIDE 0.9% 1,000 ML IV SCH ×2 (14:15→21:02)
[2019-11-16 15:22] LABS: Appearance,Urine Cloudy (Clear); Bacteria,Urine Many /hpf; Bilirubin,Urine Negative (Negative); Blood,Urine Small (Negative); Color,Urine Yellow; Glucose,Urine (UA) Negative (Negative); Hyaline Casts,Urine 9 /lpf (0-2); Ketones,Urine Negative (Negative); Leukocyte Esterase,Urine Large (Negative); Mucus,Urine Rare /hpf; Nitrite,Urine Negative (Negative); Protein,Urine Trace (Negative); RBC,Urine 6 /hpf (0-5); Specific Gravity,Urine 1.011 (1.001-1.035); Squamous Epithelial Cell,Urine 2 /hpf (0-4); Urobilinogen,Urine <2.0 mg/dL (<2.0); WBC,Urine 109 /hpf (0-5)
[2019-11-16] MEDS: LINAGLIPTIN 5 MG TABLET PO SCH (16:24)
[2019-11-16] MEDS: ASCORBIC ACID 500 MG TAB PO SCH (16:24)
[2019-11-16 17:04] LABS: Glucose,Whole Blood 133 mg/dL (75-99)
[2019-11-16] MEDS ORDERED: WARFARIN 0.5 MG TAB PO ONE (18:00)
--- NOTE | 2019-11-16 18:01 | P.PN ---
Progress Note - Text Progress Note Date: 11/16/19 Chief Complaint: Low blood pressure History of presenting complaint: This is a pleasant 64-year-old patient follows with Dr. DAVILA and a resident of [place]. Chronic stable medical conditions include diabetes, hypertension, osteoporosis, hypothyroid, morbid obesity, chronic CHF COPD chronic lymphedema diabetic peripheral neuropathy. Of recent patient not able to ambulate and a Phyllis lift is being used to the F. Patient was sent in because she was noticed to have a blood pressure running low on the systolic 50s. Appetite is fair. Patient has been making urine. No obvious change in medication. No fever no chills. No urinary symptoms. Patient kidney function was found to be worsened on presentation. Patient also being treated for right breast wound last few days. Admitted with acute kidney injury with ATN, hypotension. Diuretics and erick inhibitor discontinued. Given IV fluids. Today-getting IV fluids. Kidney function started to improve. Good urine output. Review of systems: Was done for constitutional, cardiovascular, GI, pulmonary. relevant finding as above Active Medications Acetaminophen (Tylenol Tab) 650 mg PO Q6HR PRN PRN Reason: Mild Pain or Fever > 100.5 Last Admin: 11/14/19 13:54 Dose: 650 mg Documented by: Ascorbic Acid (Vitamin C) 500 mg PO DAILY@1700 [facility] Last Admin: 11/16/19 16:24 Dose: 500 mg Documented by: Escitalopram Oxalate (Lexapro) 20 mg PO DAILY [facility] Last Admin: 11/16/19 09:44 Dose: 20 mg Documented by: Fluticasone Propionate (Flonase Nasal [place]) 2 spray EA NOSTRIL DAILY [facility] Last Admin: 11/16/19 09:43 Dose: 2 spray Documented by: Sodium Chloride (Saline 0.9%) 1,000 mls @ 70 mls/hr IV .[id number] [facility] Last Admin: 11/16/19 14:15 Dose: 70 mls/hr Documented by: Insulin Aspart (Novolog) 0 unit SQ AC-TID [facility]; Protocol Last Admin: 11/16/19 17:08 Dose: Not Given Documented by: Levothyroxine Sodium (Synthroid) 88 mcg PO DAILY@0600 [facility] Last Admin: 11/16/19 06:02 Dose: 88 mcg Documented by: Lidocaine (Xylocaine 5% Oint) 1 applic TOPICAL HS PRN PRN Reason: WOUND PAIN Linagliptin (Tradjenta) 5 mg PO DAILY@1700 [facility] Last Admin: 11/16/19 16:24 Dose: 5 mg Documented by: Lorazepam (Ativan) 1 mg PO BID@1000,1700 [facility] Last Admin: 11/16/19 16:24 Dose: 1 mg Documented by: Medroxyprogesterone Acetate (Provera) 10 mg PO DAILY@0800 [facility] Last Admin: 11/16/19 09:44 Dose: 10 mg Documented by: Methyl Salicylate (Thera-Gesic Cream) 1 applic TOPICAL TID PRN PRN Reason: Pain Metoprolol Tartrate (Lopressor) 12.5 mg PO BID [facility] Last Admin: 11/16/19 09:44 Dose: 12.5 mg Documented by: Miscellaneous Information (Coumadin Per Pharmacy) 0 each MISCELLANE DIRECTED PRN PRN Reason: PHARMACY DOSING WARFARIN Naloxone HCl (Narcan) 0.2 mg IV Q2M PRN PRN Reason: Opioid Reversal Nystatin (Mycostatin Powder) 1 applic TOPICAL BID [facility] Last Admin: 11/16/19 09:45 Dose: 1 applic Documented by: Pantoprazole Sodium (Protonix) 40 mg PO DAILY@1000 [facility] Last Admin: 11/16/19 09:45 Dose: 40 mg Documented by: Quetiapine Fumarate (Seroquel) 300 mg PO HS@2300 [facility] Last Admin: 11/15/19 22:55 Dose: 300 mg Documented by: Quetiapine Fumarate (Seroquel) 50 mg PO DAILY@1200 [facility] Last Admin: 11/16/19 12:38 Dose: 50 mg Documented by: Simethicone (Mylicon Chew) 80 mg PO PC-TID PRN PRN Reason: UPPERGASTRIC DISTRESS Tramadol HCl (Ultram) 50 mg PO QID PRN PRN Reason: Pain Warfarin Sodium (Coumadin) 0 mg PO ONCE@1800 ONE Stop: 11/16/19 18:01 Last Admin: 11/16/19 16:17 Dose: Not Given Documented by: Physical examination: VITAL SIGNS: 98.4, 110, 18, 92 x 57, 94% room air GENERAL:, Propped up in bed, comfortable EYES: Pupils equal. Conjunctiva normal. NECK: JVD not raised; masses not palpable. Right breast has a dressing on the dependent part HEART: First and second heart sounds are normal; nonpitting edema. LUNGS:[ Respiratory rate increased; distant breath sounds. ABDOMEN: Soft, nontender, liver spleen not palpable, no masses palpable. PSYCH: Alert and oriented x3; mood and affect normal. INVESTIGATIONS, reviewed in the clinical context: Potassium 3.8 bun 42 creatinine 1.76 Previous testing: Bun 34 creatinine 1.80 INR 3.6 On November 07: creatinine was 0.56 Assessment: -Symptomatic hypotension from acute kidney injury-slowly improving -Acute kidney 3 possibly ATN with a prerenal component from patient being on hydrochlorothiazide, Cozaar, Lasix,-started to improve -Morbid obesity BMI 78.3 -Diabetes mellitus type 2, uncontrolled with hypoglycemia -Essential hypertension history of -Primary osteoarthritis -Chronic DVT PE on anticoagulation -Hypothyroid -Chronic congestive heart failure from diastolic dysfunction EF 60-65% -COPD in an ex-smoker -Chronic bilateral lower extremity - lymphedema -Diabetic peripheral neuropathy -Bipolar disorder stable -Chronic medical debility does use a phyllis lift -Right breast wound.-Local wound care Plan: Continue with IV fluids. Repeat labs in the morning. Other medications to continue. Hold Coumadin.
[2019-11-16 21:12] LABS: Glucose,Whole Blood 138 mg/dL (75-99)
[2019-11-16] MEDS: QUEtiapine 100 MG TAB PO SCH (22:53)
[2019-11-17 06:58] LABS: Glucose,Whole Blood 137 mg/dL (75-99)
[2019-11-17 07:35] LABS: INR 2.7 (<1.2); Prothrombin Time 26.2 sec (9.0-12.0)
[2019-11-17 07:38] LABS: Calcium 7.8 mg/dL (8.4-10.2)
[2019-11-17] MEDS: FLUTICASONE 50MCG/SPRAY NASAL 16GM EA NOSTRIL SCH (08:50)
[2019-11-17] MEDS: METOPROLOL TARTRATE 12.5 MG TAB PO SCH ×2 (08:50→20:14)
[2019-11-17] MEDS: ESCITALOPRAM 20 MG TAB PO SCH (08:51)
[2019-11-17] MEDS: medroxyPROGESTERone 10 MG TABLET PO SCH (08:52)
[2019-11-17] MEDS: INSULIN ASPART (NovoLOG) 100 UNIT/ML VIAL SQ SCH ×3 (08:52→17:04)
[2019-11-17] MEDS: PANTOPRAZOLE 40 MG TABLET PO SCH (08:52)
[2019-11-17] MEDS: LORazepam 1 MG TAB PO SCH ×2 (08:53→17:14)
[2019-11-17] MEDS: NYSTATIN 100,000 UNIT/GM POWD 15 GM TOPICAL SCH ×2 (08:53→20:17)
[2019-11-17] MEDS: LEVOTHYROXINE 88 MCG TAB PO SCH (09:22)
[2019-11-17 11:15] LABS: Glucose,Whole Blood 144 mg/dL (75-99)
[2019-11-17] MEDS: QUEtiapine 50 MG TAB PO SCH (12:54)
[2019-11-17] MEDS: SODIUM CHLORIDE 0.9% 1,000 ML IV SCH ×2 (12:56→19:07)
--- NOTE | 2019-11-17 17:11 | PN ---
PROGRESS NOTE Patient is seen for followup for acute kidney injury, mostly associated with hypotension hypoperfusion. Renal function has improved. Serum creatinine down to 1.25 from peak of 2.1. EXAMINATION: Today patient is comfortable, awake. She is not in any acute distress. Blood pressure is 119/71, heart rate 102 per minute, she is afebrile. Examination of the heart S1, S2. Examination of the lungs, bilateral breath sounds are heard. Decreased breath sounds at bases. Abdomen is soft, obese. Examination of lower extremities shows edema 1+ bilaterally. [employer] exam grossly intact. LABS: Show sodium 132, potassium 4.0, chloride 95, CO2 is 32, BUN 40, creatinine 1.25. ASSESSMENT: 1. Acute kidney injury associated with hypotension, hypoperfusion, currently improved. 2. Chronic lymphedema. 3. Type 2 diabetes. 4. History of right breast abscess. 5. History of bipolar disorder. 6. History of diastolic congestive heart failure. PLAN: We can discontinue the Claros catheter. Decrease IV fluids further. Encourage increased oral intake. MMODL / IJN: [id number] /
[2019-11-17 17:14] LABS: Glucose,Whole Blood 124 mg/dL (75-99)
[2019-11-17] MEDS: LINAGLIPTIN 5 MG TABLET PO SCH (17:14)
[2019-11-17] MEDS: ASCORBIC ACID 500 MG TAB PO SCH (17:14)
[2019-11-17] MEDS ORDERED: WARFARIN 5 MG TAB PO ONE (18:00)
[2019-11-17] MEDS: ACETAMINOPHEN TAB 325 MG TAB PO PRN (20:16)
[2019-11-17 20:52] LABS: Glucose,Whole Blood 135 mg/dL (75-99)
--- NOTE | 2019-11-17 21:27 | P.PN ---
Progress Note - Text Progress Note Date: 11/17/19 Chief Complaint: Low blood pressure History of presenting complaint: This is a pleasant 64-year-old patient follows with Dr. DAVILA and a resident of [place] [facility]. Chronic stable medical conditions include diabetes, hypertension, osteoporosis, hypothyroid, morbid obesity, chronic CHF COPD chronic lymphedema diabetic peripheral neuropathy. Of recent patient not able to ambulate and a Phyllis lift is being used to the F. Patient was sent in because she was noticed to have a blood pressure running low on the systolic 50s. Appetite is fair. Patient has been making urine. No obvious change in medication. No fever no chills. No urinary symptoms. Patient kidney function was found to be worsened on presentation. Patient also being treated for right breast wound last few days. Admitted with acute kidney injury with ATN, hypotension. Diuretics and erick inhibitor discontinued. Given IV fluids. Today-getting IV fluids. continues to feel better. No new issues. Making good urine. Review of systems: Was done for constitutional, cardiovascular, GI, pulmonary. relevant finding as above Active Medications Acetaminophen (Tylenol Tab) 650 mg PO Q6HR PRN PRN Reason: Mild Pain or Fever > 100.5 Last Admin: 11/17/19 20:16 Dose: 650 mg Documented by: Ascorbic Acid (Vitamin C) 500 mg PO DAILY@1700 [facility] Last Admin: 11/17/19 17:14 Dose: 500 mg Documented by: Escitalopram Oxalate (Lexapro) 20 mg PO DAILY [facility] Last Admin: 11/17/19 08:51 Dose: 20 mg Documented by: Fluticasone Propionate (Flonase Nasal [place]) 2 spray EA NOSTRIL DAILY [facility] Last Admin: 11/17/19 08:50 Dose: 2 spray Documented by: Sodium Chloride (Saline 0.9%) 1,000 mls @ 50 mls/hr IV .Q20H [facility] Last Admin: 11/17/19 19:07 Dose: 50 mls/hr Documented by: Insulin Aspart (Novolog) 0 unit SQ AC-TID [facility]; Protocol Last Admin: 11/17/19 17:04 Dose: Not Given Documented by: Levothyroxine Sodium (Synthroid) 88 mcg PO DAILY@0600 [facility] Last Admin: 11/17/19 09:22 Dose: Not Given Documented by: Lidocaine (Xylocaine 5% Oint) 1 applic TOPICAL HS PRN PRN Reason: WOUND PAIN Linagliptin (Tradjenta) 5 mg PO DAILY@1700 [facility] Last Admin: 11/17/19 17:14 Dose: 5 mg Documented by: Lorazepam (Ativan) 1 mg PO BID@1000,1700 [facility] Last Admin: 11/17/19 17:14 Dose: 1 mg Documented by: Medroxyprogesterone Acetate (Provera) 10 mg PO DAILY@0800 [facility] Last Admin: 11/17/19 08:52 Dose: 10 mg Documented by: Methyl Salicylate (Thera-Gesic Cream) 1 applic TOPICAL TID PRN PRN Reason: Pain Metoprolol Tartrate (Lopressor) 12.5 mg PO BID [facility] Last Admin: 11/17/19 20:14 Dose: 12.5 mg Documented by: Miscellaneous Information (Coumadin Per Pharmacy) 0 each MISCELLANE DIRECTED PRN PRN Reason: PHARMACY DOSING WARFARIN Naloxone HCl (Narcan) 0.2 mg IV Q2M PRN PRN Reason: Opioid Reversal Nystatin (Mycostatin Powder) 1 applic TOPICAL BID [facility] Last Admin: 11/17/19 20:17 Dose: 1 applic Documented by: Pantoprazole Sodium (Protonix) 40 mg PO DAILY@1000 [facility] Last Admin: 11/17/19 08:52 Dose: 40 mg Documented by: Quetiapine Fumarate (Seroquel) 300 mg PO HS@2300 [facility] Last Admin: 11/16/19 22:53 Dose: 300 mg Documented by: Quetiapine Fumarate (Seroquel) 50 mg PO DAILY@1200 [facility] Last Admin: 11/17/19 12:54 Dose: 50 mg Documented by: Simethicone (Mylicon Chew) 80 mg PO PC-TID PRN PRN Reason: UPPERGASTRIC DISTRESS Tramadol HCl (Ultram) 50 mg PO QID PRN PRN Reason: Pain Physical examination: VITAL SIGNS: 98.5, 102, 18, 119/71, 95% on room air GENERAL:, Propped up in bed, comfortable EYES: Pupils equal. Conjunctiva normal. NECK: JVD not raised; masses not palpable. Right breast has a dressing on the dependent part HEART: First and second heart sounds are normal; nonpitting edema. LUNGS:[ Respiratory rate increased; distant breath sounds. ABDOMEN: Soft, nontender, liver spleen not palpable, no masses palpable. PSYCH: Alert and oriented x3; mood and affect normal. INVESTIGATIONS, reviewed in the clinical context: potassium 4 bun 40 creatinine 1.25 Previous testing: Bun 34 creatinine 1.80 INR 3.6 On November 07: creatinine was 0.56 Assessment: -Symptomatic hypotension from acute kidney injury-slowly improving -Acute kidney 3 possibly ATN with a prerenal component from patient being on hydrochlorothiazide, Cozaar, Lasix,-improving -Morbid obesity BMI 78.3 -Diabetes mellitus type 2, uncontrolled with hypoglycemia -Essential hypertension history of -Primary osteoarthritis -Chronic DVT PE on anticoagulation -Hypothyroid -Chronic congestive heart failure from diastolic dysfunction EF 60-65% -COPD in an ex-smoker -Chronic bilateral lower extremity - lymphedema -Diabetic peripheral neuropathy -Bipolar disorder stable -Chronic medical debility does use a phyllis lift -Right breast wound.-Local wound care Plan: Continue with IV fluids. stop in a.m.. Discussed with the patient. Repeat labs in the morning.
[2019-11-17] MEDS: QUEtiapine 100 MG TAB PO SCH (22:47)
[2019-11-18] MEDS: LEVOTHYROXINE 88 MCG TAB PO SCH (05:44)
[2019-11-18 06:56] LABS: Glucose,Whole Blood 129 mg/dL (75-99)
[2019-11-18] MEDS: INSULIN ASPART (NovoLOG) 100 UNIT/ML VIAL SQ SCH ×2 (07:17→12:22)
[2019-11-18 08:21] LABS: INR 2.2 (<1.2); Prothrombin Time 21.5 sec (9.0-12.0)
[2019-11-18 08:33] LABS: Calcium 8.1 mg/dL (8.4-10.2)
[2019-11-18 08:35] LABS: Potassium 4.6 mmol/L (3.5-5.1)
[2019-11-18] MEDS: METOPROLOL TARTRATE 12.5 MG TAB PO SCH (09:16)
[2019-11-18] MEDS: PANTOPRAZOLE 40 MG TABLET PO SCH (09:16)
[2019-11-18] MEDS: LORazepam 1 MG TAB PO SCH (09:16)
[2019-11-18] MEDS: ESCITALOPRAM 20 MG TAB PO SCH (09:17)
[2019-11-18] MEDS: FLUTICASONE 50MCG/SPRAY NASAL 16GM EA NOSTRIL SCH (09:17)
[2019-11-18] MEDS: NYSTATIN 100,000 UNIT/GM POWD 15 GM TOPICAL SCH (09:17)
[2019-11-18] MEDS: medroxyPROGESTERone 10 MG TABLET PO SCH (09:17)
[2019-11-18] MEDS: QUEtiapine 50 MG TAB PO SCH (12:16)
[2019-11-18 12:20] LABS: Glucose,Whole Blood 123 mg/dL (75-99)
[2019-11-18 13:22] VITALS: BP 108/69; PULSE 94; RESP 20; TEMP 98.6
[2019-11-18] MEDS ORDERED: WARFARIN 2.5 MG TAB PO ONE (18:00)
--- NOTE | 2019-11-18 18:32 | PN ---
PROGRESS NOTE Patient is seen for followup for acute kidney injury secondary to hypotension. Patient's renal function has improved significantly, with serum creatinine now down to 0.8 mg/dL. The patient is being discharged today. PHYSICAL EXAMINATION: Blood pressure was 108/69, heart rate 94 per minute. She is afebrile. Examination of lower extremities shows Abdomen is soft, nontender. LABS: Sodium 134, potassium 4.6, chloride 98. CO2 is 31, BUN 34, creatinine 0.82. ASSESSMENT: 1. Acute kidney injury associated with hypotension, hypoperfusion, currently significantly improved. 2. Morbid obesity. 3. Chronic lymphedema. 4. History of bipolar disorder. 5. History of diastolic congestive heart failure. PLAN: Patient is stable for discharge from nephrology standpoint. She is advised to monitor her blood pressure as outpatient and hold blood pressure medications if her systolic blood pressure is less than 110 mmHg systolic. MMODL / IJN: [id number] /
--- NOTE | 2019-11-18 22:17 | P.DS ---
Providers Date of admission: 11/14/19 12:47 Expected date of discharge: 11/18/19 Attending physician: Corbin Chino Consults: 11/15/19 12:41 Consult Physician Routine Consulting Provider: Jourdan Iverson Consult Reason/Comments: VALE Do you want consulting provider notified?: Yes Primary care physician: Frank Vera [facility] Course: Chief Complaint: Low blood pressure History of presenting complaint: This is a pleasant 64-year-old patient follows with Dr. VERA and a resident of [facility]. Chronic stable medical conditions include diabetes, hypertension, osteoporosis, hypothyroid, morbid obesity, chronic CHF COPD chronic lymphedema diabetic peripheral neuropathy. Of recent patient not able to ambulate and a Phyllis lift is being used to the [facility]. Patient was sent in because she was noticed to have a blood pressure running low on the systolic 50s. Appetite is fair. Patient has been making urine. No obvious change in medication. No fe klaudia no chills. No urinary symptoms. Patient kidney function was found to be worsened on presentation. Patient also being treated for right breast wound last few days. Admitted with acute kidney injury with ATN, hypotension. Diuretics and erick inhibitor discontinued. Given IV fluids. Today-doing well. Creatinine came down from 1.8 down to 0.82. Diuretics will not be resumed. Care was discussed in detail with the patient. Medications discussed. Dose of glyburide has been cutback. Discussion and discharge planning more than 35 minutes Consultation: Dr. Chavez from nephrology Wound care team for the breast wound Physical examination: VITAL SIGNS: 98.6, 94, 20, 108/69, 96% on 2 L GENERAL:, Propped up in bed, comfortable EYES: Pupils equal. Conjunctiva normal. NECK: JVD not raised; masses not palpable. Right breast has a dressing on the dependent part HEART: First and second heart sounds are normal; nonpitting edema. LUNGS:[ Respiratory rate increased; distant breath sounds. ABDOMEN: Soft, nontender, liver spleen not palpable, no masses palpable. PSYCH: Alert and oriented x3; mood and affect normal. INVESTIGATIONS, reviewed in the clinical context: Potassium 4.6 creatinine 0.82 INR 2.2 Previous testing: Bun 34 creatinine 1.80 INR 3.6 On November 07: creatinine was 0.56 Assessment: -Symptomatic hypotension from acute kidney POA -Acute kidney 3 possibly ATN with a prerenal component from patient being on hydrochlorothiazide, Cozaar, Lasix,-, POA corrected -Morbid obesity BMI 78.3 -Diabetes mellitus type 2, uncontrolled with hypoglycemia -Essential hypertension history of -Primary osteoarthritis -Chronic DVT PE on anticoagulation -Hypothyroid -Chronic congestive heart failure from diastolic dysfunction EF 60-65% -COPD in an ex-smoker -Chronic bilateral lower extremity - lymphedema -Diabetic peripheral neuropathy -Bipolar disorder stable -Chronic medical debility does use a phyllis lift -Right breast wound.-Local wound care Disposition: [facility] Patient Condition at Discharge: Stable Plan - Discharge Summary Discharge Rx Participant: No New Discharge Prescriptions: New Metoprolol Tartrate [Lopressor] 12.5 mg PO BID tab Continue Levothyroxine Sodium [Synthroid] 88 mcg PO DAILY@0800 QUEtiapine FUMARATE [SEROquel] 300 mg PO HS@2300 Escitalopram [Lexapro] 20 mg PO DAILY@1000 Linagliptin [Tradjenta] 5 mg PO DAILY@1700 fluocinolone acetonide oiL [Fluocinolone Acetonide Oil (Otic)] 5 drops BOTH EARS BID PRN PRN Reason: ITCHING EARS Omeprazole 20 mg PO DAILY@1000 Acetaminophen Tab [Tylenol] 650 mg PO Q6HR PRN tab PRN Reason: Mild Pain Or Fever > 100.5 Acetaminophen Tab [Tylenol] 500 mg PO Q6HR PRN PRN Reason: Pain Simethicone 80 mg PO PC-TID PRN PRN Reason: UPPERGASTRIC DISTRESS Magnesium Hydroxide [Milk of Magnesia Concentrate] 7,200 mg PO Q48H PRN PRN Reason: Constipation Kenalog-40 Suspension 40mg/Ml 40 mg INTRAARTIC ONCE Lidocaine 5% Oint [Xylocaine 5% Oint] 1 applic TOPICAL HS PRN PRN Reason: WOUND PAIN guaiFENesin [guaiFENesin Oral Solution] 100 mg PO Q4H PRN PRN Reason: Cough bisacodyL [Bisacodyl] 10 mg RECTAL DAILY PRN PRN Reason: Constipation Na Phos,M-B/Na Phos,Di-Ba [Fleet Adult] 133 ml RECTAL DAILY PRN PRN Reason: Constipation diphenhydrAMINE [Benadryl] 25 mg PO TID PRN PRN Reason: Allergy Symptoms Menthol [Biofreeze] 1 applic TOPICAL DAILY PRN PRN Reason: Pain Nystatin [Nystop] 1 applic TOPICAL BID Fluticasone Nasal [place] [Flonase Nasal [place]] 1 spray EA NOSTRIL BID Docusate [Colace] 100 mg PO BID@0800,1700 QUEtiapine [SEROquel] 50 mg PO DAILY@1200 Calcium Carb-Vit D 500Mg-200Un [Oscal 500+D] 1 tab PO DAILY@1700 Medroxyprogesterone Acetate [Provera] 10 mg PO DAILY@0800 Ferrous Sulfate [Iron (65 MG Elemental)] 325 mg PO DAILY@1700 Warfarin [Coumadin] 5 mg PO SUTUWEFRSA@1700 Warfarin [Coumadin] 2.5 mg PO MOTH@1700 Ascorbic Acid [Vitamin C] 500 mg PO DAILY@1700 LORazepam [Ativan] 1 mg PO BID@1000,1700 #6 tab Changed glipiZIDE [Glucotrol] 2.5 mg PO DAILY #0 Discontinued Loratadine [Claritin] 10 mg PO DAILY@1000 Meclizine [Antivert] 12.5 mg PO TID PRN PRN Reason: Vertigo Lidocaine Hcl 1% Solution 2 ml INTRAARTIC ONCE Metoprolol Tartrate [Lopressor] 25 mg PO BID@0800,2300 Potassium Chloride ER [K-Dur 10] 10 meq PO DAILY@1000 hydroCHLOROthiazide [Hydrodiuril] 12.5 mg PO DAILY@0800 Losartan [Cozaar] 25 mg PO DAILY@0800 Furosemide [Lasix] 20 mg PO DAILY@0800 Discharge Medication List Escitalopram [Lexapro] 20 mg PO DAILY@1000 07/31/14 [History] Levothyroxine Sodium [Synthroid] 88 mcg PO DAILY@0800 07/31/14 [History] QUEtiapine FUMARATE [SEROquel] 300 mg PO HS@2300 07/31/14 [History] Linagliptin [Tradjenta] 5 mg PO DAILY@1700 11/30/15 [History] fluocinolone acetonide oiL [Fluocinolone Acetonide Oil (Otic)] 5 drops BOTH EARS BID PRN 04/16/16 [History] Omeprazole 20 mg PO DAILY@1000 12/12/16 [History] Acetaminophen Tab [Tylenol] 650 mg PO Q6HR PRN tab 08/10/18 [Rx] Acetaminophen Tab [Tylenol] 500 mg PO Q6HR PRN 11/13/19 [History] Ascorbic Acid [Vitamin C] 500 mg PO DAILY@169911/13/19 [History] Calcium Carb-Vit D 500Mg-200Un [Oscal 500+D] 1 tab PO DAILY@169911/13/19 [History] Docusate [Colace] 100 mg PO BID@0800,17011/13/19 [History] Ferrous Sulfate [Iron (65 MG Elemental)] 325 mg PO DAILY@169911/13/19 [History] Fluticasone Nasal [place] [Flonase Nasal [place]] 1 spray EA NOSTRIL BID 11/13/19 [History] Kenalog-40 Suspension 40mg/Ml 40 mg INTRAARTIC ONCE 11/13/19 [History] Lidocaine 5% Oint [Xylocaine 5% Oint] 1 applic TOPICAL HS PRN 11/13/19 [History] Magnesium Hydroxide [Milk of Magnesia Concentrate] 7,200 mg PO Q48H PRN 11/13/19 [History] Medroxyprogesterone Acetate [Provera] 10 mg PO DAILY@0811/13/19 [History] Menthol [Biofreeze] 1 applic TOPICAL DAILY PRN 11/13/19 [History] Na Phos,M-B/Na Phos,Di-Ba [Fleet Adult] 133 ml RECTAL DAILY PRN 11/13/19 [History] Nystatin [Nystop] 1 applic TOPICAL BID 11/13/19 [History] QUEtiapine [SEROquel] 50 mg PO DAILY@1200 11/13/19 [History] Simethicone 80 mg PO PC-TID PRN 11/13/19 [History] Warfarin [Coumadin] 2.5 mg PO MOTH@169911/13/19 [History] Warfarin [Coumadin] 5 mg PO SUTUWEFRSA@169911/13/19 [History] bisacodyL [Bisacodyl] 10 mg RECTAL DAILY PRN 11/13/19 [History] diphenhydrAMINE [Benadryl] 25 mg PO TID PRN 11/13/19 [History] guaiFENesin [guaiFENesin Oral Solution] 100 mg PO Q4H PRN 08/26/20 [History] LORazepam [Ativan] 1 mg PO BID@1000,1700 #6 tab 11/18/19 [Rx] Metoprolol Tartrate [Lopressor] 12.5 mg PO BID tab 11/18/19 [Rx] glipiZIDE [Glucotrol] 2.5 mg PO DAILY #0 11/18/19 [Rx] Follow up Appointment(s)/Referral(s): Frank Vera MD [Primary Care Provider] - 1-2 days Activity/Diet/Wound Care/Special Instructions: breast wound care to continue Discharge Disposition: TRANSFER TO SNF/ECF
== END 2019-11-18 16:57 | DRG 683 ==
LOC: EC 01:20 → 5NMEDONC 03:04 → OBSVTOIN 11-14 12:47
PROVIDERS: ADMIT Hospitalist; ATTEND Hospitalist
DX: N17.0 Acute kidney failure with tubular necrosis (principal); I50.32 Chronic diastolic (congestive) heart failure; Z68.45 Body mass index [BMI] 70 or greater, adult; I27.82 Chronic pulmonary embolism; I82.509 Chronic embolism and thrombosis of unspecified deep veins of unspecified lower extremity; N61.1 Abscess of the breast and nipple; M81.0 Age-related osteoporosis without current pathological fracture; S21.0 Open wound of breast; E11.42 Type 2 diabetes mellitus with diabetic polyneuropathy; E11.622 Type 2 diabetes mellitus with other skin ulcer; E11.649 Type 2 diabetes mellitus with hypoglycemia without coma; E66.01 Morbid (severe) obesity due to excess calories; E03.9 Hypothyroidism, unspecified; E86.0 Dehydration; F31.9 Bipolar disorder, unspecified; F40.240 Claustrophobia; I11.0 Hypertensive heart disease with heart failure; I89.0 Lymphedema, not elsewhere classified; J44.9 Chronic obstructive pulmonary disease, unspecified; L98.491 Non-pressure chronic ulcer of skin of other sites limited to breakdown of skin; I95.9 Hypotension, unspecified; Z20.828 Contact with and (suspected) exposure to other viral communicable diseases; M17.0 Bilateral primary osteoarthritis of knee; M19.072 Primary osteoarthritis, left ankle and foot; M19.071 Primary osteoarthritis, right ankle and foot; R32 Unspecified urinary incontinence; S70.321A Blister (nonthermal), right thigh, initial encounter; Z74.01 Bed confinement status; Z79.01 Long term (current) use of anticoagulants; T50.2X5A Adverse effect of carbonic-anhydrase inhibitors, benzothiadiazides and other diuretics, initial encounter; J30.9 Allergic rhinitis, unspecified; Z90.49 Acquired absence of other specified parts of digestive tract; L30.9 Dermatitis, unspecified; Z79.84 Long term (current) use of oral hypoglycemic drugs; Z79.890 Hormone replacement therapy; Z79.899 Other long term (current) drug therapy; Z87.891 Personal history of nicotine dependence; R53.81 Other malaise; Z88.1 Allergy status to other antibiotic agents; Z88.5 Allergy status to narcotic agent; Z88.0 Allergy status to penicillin; Z88.2 Allergy status to sulfonamides; Z88.8 Allergy status to other drugs, medicaments and biological substances
CPT/HCPCS: 36415; 76770; 80048; 80053; 81001; 85025; 85610; 94760; 96360; 99285

== ENCOUNTER → 2020-08-28 | Outpatient (CLI) | payer MEDICARE, OTHER ==
[2020-08-28 09:18] VITALS: BP 101/56; PULSE 88; RESP 16; TEMP 98.4
--- NOTE | 2020-08-28 10:15 | P.GSHP ---
History of Present Illness H&P Date: 08/28/20 Chief Complaint: abnormal ultrasound, right breast Leonela is a 65-year-old white female seen in consultation for Dr. Vera from [facility] who was noted on an ultrasound to have an area of questionable concern in the right breast. Ultrasound was done secondary to skin pustules. The patient in the past has had multiple biopsies. The biopsies include: [id number] left breast with margins fibrocystic change [id number] left breast: Proliferative fibrocystic changes with severe ductal hyperplasia and intraductal papilloma, focal radial scar [id number] with right breast core biopsy fragments of intraductal papilloma [id number] open biopsy right breast multifocal solid papillomas and papillary intraductal papillomas, focal radial scar [id number] needle localization right breast with biopsy excision biopsy intraductal papilloma margins negative Nipple biopsy adenoma extending to margins The patient herself does not notice any new lumps masses or nodules in her breast. She states that the pustules were treated with topical medication and seemed to have subsided. Additionally she is not complaining of any nipple discharge at this time. She is not complaining of any pain in her breast. She has not had any mammogram for many years secondary to inability to stand. Caffeine: Negative Nicotine: Negative never smoker Chocolate: Occasional Hormonal history: Menarche: 8 AB 1 Menopause: 48 control pills: 1 year Hormones: Progesterone is taking it at this time Surgical history: Cholecystectomy Bilateral ankle surgery Wrist surgery Sinus surgery D&C Medical history: Bilateral bcannnot stand after a fall (2 years ago) vertigo leg swelling HTN COPD asthma diabetic bipolar morbid obesity anxiety heart failure morbid obesity Questionable ultrasound abnormality right breast Skin pustules right breast appear to be resolved Nipple discharge not present on today's exam reast biopsies Social history: Nicotine: Negative Alcohol: Negative Drugs: Negative - Constitutional Constitutional: Denies chills, Denies fever - EENT Eyes: bilateral blurred vision Ears: bilateral: decreased hearing Ears, nose, mouth and throat: Reports headache, Denies sore throat - Breasts Breasts: bilateral: as per HPI - Cardiovascular Cardiovascular: Denies chest pain, Denies shortness of breath - Respiratory Comment: asthma, COPD Respiratory: Reports cough - Gastrointestinal Gastrointestinal: Reports constipation - Genitourinary (Female) Genitourinary: Denies dysuria, Denies hematuria - Menstruation Menstruation: Reports postmenopausal - Musculoskeletal Comment: can't stand because legs week - Integumentary Integumentary: Denies pruritus, Denies rash - Neurological Neurological: Reports weakness - Psychiatric Psychiatric: Reports anxiety, Reports depression - Endocrine Comment: lost 55 pounds Endocrine: Reports weight change - Hematologic/Lymphatic Comment: Coumadin pulmonary embolism - Allergic/Immunologic Allergic/Immunologic: Reports as per HPI Past Medical History Past Medical History: Diabetes Mellitus, Hypertension, Osteoarthritis (OA), Pulmonary Embolus (PE), Skin Disorder, Thyroid Disorder Additional Past Medical History / Comment(s): Morbid obesity, Diabetes mellitus, hypertension, previous history of pulmonary embolism/DVT, osteoarthritis, hypothyroidism, eczema, osteoarthritis of the lower extremities including knees and ankles and the patient has received steroid shots, chronic allergic rhinitis, vertigo, congestive heart failure, COPD, lymphedema, anemia, diabetic neuropathy, History of Any Multi-Drug Resistant Organisms: ESBL, MRSA Date of last positivie culture/infection: 04/27/20 ESBL 06/10/19 MRSA MDRO Source:: ESBL URINE MRSA ABDOMEN Past Surgical History: Breast Surgery, Cholecystectomy, Orthopedic Surgery Additional Past Surgical History / Comment(s): LT WRIST GANGLION CYST. 3 BREAST SURGERIES - BENIGN. RTR. SINUS SURGERY. D&C 07/2014. Past Anesthesia/Blood Transfusion Reactions: Motion Sickness Additional Past Anesthesia/Blood Transfusion Reaction / Comment(s): Claustrophobia Past Psychological History: Bipolar, Depression Additional Psychological History / Comment(s): Patient bedbound and uses [facility] at [facility]. Per nurse from [facility] pt unable to bear weight. Patient gets all care provided via [facility]. Smoking Status: Never smoker Past Alcohol Use History: None Reported Past Drug Use History: None Reported - Past Family History Mother Family Medical History: Unable to Obtain Father Family Medical History: Unable to Obtain Medications and Allergies Home Medications Medication Instructions Recorded Confirmed Type Escitalopram [Lexapro] 20 mg PO DAILY@1000 07/31/14 08/25/20 History Levothyroxine Sodium [Synthroid] 88 mcg PO DAILY@0800 07/31/14 08/25/20 History QUEtiapine FUMARATE [SEROquel] 300 mg PO HS@2300 07/31/14 08/25/20 History Linagliptin [Tradjenta] 5 mg PO DAILY@1700 11/30/15 08/25/20 History fluocinolone acetonide oiL 5 drops BOTH EARS BID PRN 04/16/16 08/25/20 History [Fluocinolone Acetonide Oil (Otic)] Acetaminophen Tab [Tylenol] 500 mg PO Q6HR PRN 11/13/19 08/25/20 History Ascorbic Acid [Vitamin C] 500 mg PO DAILY@0 11/13/19 08/25/20 History Calcium Carb-Vit D 500Mg-5Mcg 1 tab PO DAILY@169911/13/19 08/25/20 History [Oscal 500+D 5 Mcg (200 Iu)] Docusate [Colace] 100 mg PO DAILY 11/13/19 08/25/20 History Ferrous Sulfate [Iron (65 MG 325 mg PO DAILY@169911/13/19 08/25/20 History Elemental)] Lidocaine 5% Oint [Xylocaine 5% 1 applic TOPICAL HS PRN 11/13/19 08/25/20 History Oint] Magnesium Hydroxide [Milk of 7,200 mg PO Q48H PRN 11/13/19 08/25/20 History Magnesia Concentrate] Medroxyprogesterone Acetate 10 mg PO DAILY@0811/13/19 08/25/20 History [Provera] Menthol [Biofreeze] 1 applic TOPICAL DAILY PRN 11/13/19 08/25/20 History QUEtiapine [SEROquel] 50 mg PO DAILY@1200 11/13/19 08/25/20 History Simethicone 80 mg PO PC-TID PRN 11/13/19 08/25/20 History Warfarin [Coumadin] 5 mg PO SUTUWEFRSA@169911/13/19 08/25/20 History Warfarin [Coumadin] 7.5 mg PO MOTH@169911/13/19 08/25/20 History bisacodyL [Bisacodyl] 10 mg RECTAL DAILY PRN 11/13/19 08/25/20 History guaiFENesin [guaiFENesin Oral 100 mg PO Q4H PRN 11/13/19 08/25/20 History Solution] LORazepam [Ativan] 1 mg PO BID@1000,1700 #6 tab 11/18/19 08/25/20 Rx Metoprolol Tartrate [Lopressor] 12.5 mg PO BID tab 11/18/19 08/25/20 Rx glipiZIDE [Glucotrol] 2.5 mg PO DAILY #0 11/18/19 08/25/20 Rx Calcium Carbonate/Vitamin D3 1 each PO DAILY 08/25/20 08/25/20 History [Os-Ike 500-Vit D3 5 Mcg (200 Iu)] Chlorhexidine Gluconate [Hibiclens] 1 applic TOPICAL DAILY PRN 08/25/20 08/25/20 History Cholecalciferol [Vitamin D3 (25 50 mcg PO DAILY 08/25/20 08/25/20 History Mcg = 1000 Iu)] Folic Acid 0.4 mg PO DAILY 08/25/20 08/25/20 History Furosemide [Lasix] 20 mg PO BID 08/25/20 08/25/20 History Lactobacillus Acidophilus 1 each PO DAILY 08/25/20 08/25/20 History [Acidophilus Probiotic] Allergies Allergy/AdvReac Type Severity Reaction Status Date / Time ciprofloxacin [From Cipro] Allergy Severe HIVES Verified 11/13/19 09:12 ciprofloxacin HCl Allergy Severe HIVES Verified 11/13/19 09:12 [From Cipro] clarithromycin [From Biaxin] Allergy Severe HIVES Verified 11/13/19 09:12 codeine Allergy Severe HIVES Verified 11/13/19 09:12 duloxetine HCl Allergy Severe Nausea Verified 11/13/19 09:12 [From Cymbalta] hydrocodone bitartrate Allergy Severe Rash/Hives Verified 11/13/19 09:12 [From Vicodin] Penicillins Allergy Severe Abdominal Verified 11/13/19 09:12 Pain Sulfa (Sulfonamide Allergy Severe HEADACHE Verified 11/13/19 09:12 Antibiotics) alprazolam [From Xanax] Allergy Unknown HIVES Verified 11/13/19 09:12 buspirone HCl [From BuSpar] Allergy Unknown Nausea & Verified 11/13/19 09:12 Vomiting clindamycin HCl Allergy Unknown HIVES Verified 11/13/19 09:12 [From Cleocin] clindamycin palmitate HCl Allergy Unknown HIVES Verified 11/13/19 09:12 [From Cleocin] clindamycin phosphate Allergy Unknown HIVES Verified 11/13/19 09:12 [From Cleocin] honey Allergy Unknown Anaphylaxis Verified 11/13/19 09:12 metformin Allergy Unknown Anaphylaxis Verified 11/13/19 09:12 doxycycline Allergy Unknown Verified 11/13/19 09:12 cornmeal Allergy Unknown Rash/Hives Uncoded 11/13/19 09:12 Surgical - Exam Vital Signs Temp Pulse Resp BP Pulse Ox 98.4 F 88 16 101/56 96 08/28/20 08:14 08/28/20 08:14 08/28/20 08:14 08/28/20 08:14 08/28/20 08:14 BMI 73.1 - General no distress - Eyes normal ocular movement - Neck trachea midline - Respiratory clear to auscultation - Cardiovascular Heart Sounds: normal: S1, S2 - Abdomen Abdomen: soft - Integumentary Bilateral swollen lower extremity/lymphedema - Musculoskeletal unable to stand - Psychiatric oriented to time, oriented to person, oriented to place, speech is normal, memory intact breast exam: examined while laying on stretcher right breast: no dominate masses or nodules of concern, no nipple discharge of concern, well-healed scar from prior biopsy right axilla: no adenopathy of concern left breast: no dominate masses or nodules of concern, well-healed scars from prior biopsy ; partial lower outer quadrant region appears almost as secondary to areolar complex there is some drainage from this site which appears to be sebum left axilla: no adenopathy of concern l Results Bilateral breast ultrasounds were performed, these are to be reviewed with Dr. Solis is possible we are going to try to get a wheelchair sizes the patient can have bilateral mammograms today Assessment and Plan Assessment: Impression: cannnot stand after a fall (2 years ago) vertigo leg swelling HTN COPD asthma diabetic bipolar morbid obesity anxiety heart failure morbid obesity Questionable ultrasound abnormality right breast Skin pustules right breast appear to be resolved Nipple discharge not present on today's exam Plan: 1. Attempt at bilateral mammogram 2. Await report on bilateral breast ultrasound 3. Most likely patient does not have anything which would warrant interventional biopsy of the breast at this time therefore it would be appropriate for her to continue on her Premarin 4. If she notes anything of concern she should call us immediately 5. Above dependent on radiographic findings 6. Recommend warm compresses to the cystic draining site on the left breast superficial area CC: Dr. Vera
== END ==
LOC: WWCWWP 08:09
PROVIDERS: ATTEND Surgery
DX: R42 Dizziness and giddiness (principal); J44.9 Chronic obstructive pulmonary disease, unspecified; I50.9 Heart failure, unspecified; I10 Essential (primary) hypertension; F41.9 Anxiety disorder, unspecified; E66.01 Morbid (severe) obesity due to excess calories; E03.9 Hypothyroidism, unspecified; M19.071 Primary osteoarthritis, right ankle and foot; M19.072 Primary osteoarthritis, left ankle and foot; M17.0 Bilateral primary osteoarthritis of knee; M79.89 Other specified soft tissue disorders; F31.9 Bipolar disorder, unspecified; E11.40 Type 2 diabetes mellitus with diabetic neuropathy, unspecified; Z79.84 Long term (current) use of oral hypoglycemic drugs; Z88.1 Allergy status to other antibiotic agents; Z88.0 Allergy status to penicillin; Z88.2 Allergy status to sulfonamides; Z88.5 Allergy status to narcotic agent; Z88.8 Allergy status to other drugs, medicaments and biological substances; Z79.01 Long term (current) use of anticoagulants; Z79.899 Other long term (current) drug therapy; Z91.018 Allergy to other foods; Z86.718 Personal history of other venous thrombosis and embolism; Z68.45 Body mass index [BMI] 70 or greater, adult

== ENCOUNTER 2021-08-11 14:32 | Inpatient (IN) | payer MEDICARE, OTHER ==
[2021-08-11] MEDS ORDERED: IPRATROPIUM 0.5 MG/2.5 ML NEBU INHALATION STA (14:46)
[2021-08-11] MEDS ORDERED: ALBUTEROL NEBULIZED 2.5 MG/3 ML INHALATION STA (14:46)
[2021-08-11] MEDS ORDERED: DILTIAZEM DRIP BOLUS FROM BAG 1 MG SOLN IV ONE (14:47)
--- NOTE | 2021-08-11 14:49 | ED ---
General Adult HPI - General Chief complaint: Shortness of Breath Stated complaint: ELIDA Time Seen by Provider: 08/11/21 14:42 Source: patient, EMS, RN notes reviewed, old records reviewed Mode of arrival: EMS Limitations: no limitations - History of Present Illness Initial comments: 65-year-old female who presented for evaluation of increased dyspnea. Patient has history of COPD and emphysema. She was transported by EMS after being found to be hypoxic. Patient states her symptoms have progressed over the past one week. She denies central chest pain. Denies fever. She is bedbound. She is currently on Coumadin. She was noted to be in atrial fibrillation with RVR by paramedics during transport with no prior history. - Related Data Home Medications Medication Instructions Recorded Confirmed Escitalopram [Lexapro] 20 mg PO DAILY@99907/31/14 08/11/21 Levothyroxine Sodium [Synthroid] 88 mcg PO DAILY@99907/31/14 08/11/21 QUEtiapine FUMARATE [SEROquel] 300 mg PO HS@229907/31/14 08/11/21 Linagliptin [Tradjenta] 5 mg PO DAILY@169911/30/15 08/11/21 fluocinolone acetonide oiL 5 drops BOTH EARS BID PRN 04/16/16 08/11/21 [fluocinolone acetonide oiL 0.01% (Otic)] Acetaminophen Tab [Tylenol] 500 mg PO Q6H PRN 11/13/19 08/11/21 Ascorbic Acid [Vitamin C] 500 mg PO DAILY@169911/13/19 08/11/21 Calcium Carb-Vit D 500Mg-5Mcg 1 tab PO DAILY@169911/13/19 08/11/21 [Oscal 500+D 5 Mcg (200 Iu)] Docusate [Colace] 100 mg PO DAILY@99911/13/19 08/11/21 Ferrous Sulfate [Iron (65 MG 325 mg PO BID@1000,169911/13/19 08/11/21 Elemental)] Lidocaine 5% Oint [Xylocaine 5% 1 applic TOPICAL HS PRN 11/13/19 08/11/21 Oint] Magnesium Hydroxide [Milk of 7,200 mg PO Q48H PRN 11/13/19 08/11/21 Magnesia Concentrate] Medroxyprogesterone Acetate 10 mg PO DAILY@1000 11/13/19 08/11/21 [Provera] Menthol [Biofreeze] 1 applic TOPICAL DAILY PRN 11/13/19 08/11/21 QUEtiapine [SEROquel] 50 mg PO DAILY@119911/13/19 08/11/21 Simethicone [Simethicone Chew] 80 mg PO PC-TID PRN 11/13/19 08/11/21 Warfarin [Coumadin] 2.5 mg PO SUTUTHSA@17011/13/19 08/11/21 Warfarin [Coumadin] 5 mg PO MOWEFR@169911/13/19 08/11/21 bisacodyL 10 mg RECTAL DAILY PRN 11/13/19 08/11/21 guaiFENesin [guaiFENesin Oral 100 mg PO Q4H PRN 11/13/19 08/11/21 Solution] Cholecalciferol [Vitamin D3 (25 100 mcg PO DAILY@119908/25/20 08/11/21 Mcg = 1000 Iu)] Folic Acid 0.4 mg PO DAILY@99908/25/20 08/11/21 Furosemide [Lasix] 20 mg PO DAILY@169908/25/20 08/11/21 Lactobacillus Acidophilus 1 cap PO DAILY@119908/25/20 08/11/21 [Acidophilus Probiotic] Acetaminophen [Tylenol] 650 mg PO Q6H PRN 08/11/21 08/11/21 Artificial Tears-Hypromellose 2 drops BOTH EYES QID PRN 08/11/21 08/11/21 [Artificial Tear Drops] Calcium Carbonate [Tums] 500 mg PO DAILY@169908/11/21 08/11/21 Clotrimazole [Clotrimazole AF] 1 applic TOPICAL MOWEFR 08/11/21 08/11/21 Cyanocobalamin [Vitamin B-12] 500 mcg PO DAILY@169908/11/21 08/11/21 Furosemide [Lasix] 40 mg PO DAILY@99908/11/21 08/11/21 LORazepam [Ativan] 1 mg PO Q4H PRN 08/11/21 08/11/21 Metoprolol Tartrate [Lopressor] 12.5 mg PO BID@1000,229908/11/21 08/11/21 Multivitamins, Thera [Multivitamin 1 tab PO DAILY@1700 08/11/21 08/11/21 (formulary)] Omeprazole [PriLOSEC] 20 mg PO HS@2200 08/11/21 08/11/21 Phytonadione [Vitamin K] 5 mg PO ONCE 08/11/21 08/11/21 Triamcinolone 0.5% Cream [Kenalog 1 applic TOPICAL MOWEFR 08/11/21 08/11/21 0.5% Cream] glipiZIDE [Glucotrol] 2.5 mg PO DAILY@1000 08/11/21 08/11/21 Previous Rx's Medication Instructions Recorded LORazepam [Ativan] 1 mg PO BID@1000,1700 #6 tab 11/18/19 Allergies Allergy/AdvReac Type Severity Reaction Status Date / Time ciprofloxacin [From Cipro] Allergy Severe HIVES Verified 08/11/21 16:05 ciprofloxacin HCl Allergy Severe HIVES Verified 08/11/21 16:05 [From Cipro] clarithromycin [From Biaxin] Allergy Severe HIVES Verified 08/11/21 16:05 codeine Allergy Severe HIVES Verified 08/11/21 16:05 hydrocodone bitartrate Allergy Severe Rash/Hives Verified 08/11/21 16:05 [From Vicodin] alprazolam [From Xanax] Allergy Unknown HIVES Verified 08/11/21 16:05 clindamycin HCl Allergy Unknown HIVES Verified 08/11/21 16:05 [From Cleocin] clindamycin palmitate HCl Allergy Unknown HIVES Verified 08/11/21 16:05 [From Cleocin] clindamycin phosphate Allergy Unknown HIVES Verified 08/11/21 16:05 [From Cleocin] honey Allergy Unknown Anaphylaxis Verified 08/11/21 16:05 metformin Allergy Unknown Anaphylaxis Verified 08/11/21 16:05 doxycycline Allergy Unknown Verified 08/11/21 16:05 duloxetine HCl AdvReac Severe Nausea Verified 08/11/21 16:05 [From Cymbalta] Penicillins AdvReac Severe Abdominal Verified 08/11/21 16:05 Pain Sulfa (Sulfonamide AdvReac Severe HEADACHE Verified 08/11/21 16:05 Antibiotics) buspirone HCl [From BuSpar] AdvReac Unknown Nausea & Verified 08/11/21 16:05 Vomiting cornmeal Allergy Unknown Rash/Hives Uncoded 08/11/21 16:05 Review of Systems ROS Statement: Those systems with pertinent positive or pertinent negative responses have been documented in the HPI. ROS Other: All systems not noted in ROS Statement are negative. Past Medical History Past Medical History: COPD, Diabetes Mellitus, Hypertension, Osteoarthritis (OA), Pulmonary Embolus (PE), Skin Disorder, Thyroid Disorder Additional Past Medical History / Comment(s): Morbid obesity, Diabetes mellitus, hypertension, previous history of pulmonary embolism/DVT, osteoarthritis, hypothyroidism, eczema, osteoarthritis of the lower extremities including knees and ankles and the patient has received steroid shots, chronic allergic rhinitis, vertigo, congestive heart failure, COPD, lymphedema, anemia, diabetic neuropathy, History of Any Multi-Drug Resistant Organisms: ESBL, MRSA Date of last positivie culture/infection: 04/27/20 ESBL 06/10/19 MRSA MDRO Source:: ESBL URINE MRSA ABDOMEN Past Surgical History: Breast Surgery, Cholecystectomy, Orthopedic Surgery Additional Past Surgical History / Comment(s): LT WRIST GANGLION CYST. 3 BREAST SURGERIES - BENIGN. RTR. SINUS SURGERY. D&C 07/2014. Past Anesthesia/Blood Transfusion Reactions: Motion Sickness Additional Past Anesthesia/Blood Transfusion Reaction / Comment(s): Claustrophobia Past Psychological History: Bipolar, Depression Smoking Status: Never smoker Past Alcohol Use History: None Reported Past Drug Use History: None Reported - Past Family History Mother Family Medical History: Unable to Obtain Father Family Medical History: Unable to Obtain General Exam General appearance: alert, in distress, obese Head exam: Present: atraumatic, normocephalic Eye exam: Present: normal appearance, PERRL Respiratory exam: Present: respiratory distress, rales, decreased breath sounds Cardiovascular Exam: Present: tachycardia, irregular rhythm GI/Abdominal exam: Present: soft. Absent: distended, tenderness Extremities exam: Present: pedal edema Neurological exam: Present: alert, oriented X3 Psychiatric exam: Present: normal affect, normal mood Skin exam: Present: warm, dry, intact. Absent: cyanosis, diaphoretic Course Vital Signs 08/11/21 08/11/21 08/11/21 14:35 14:53 15:01 Temperature 98 F Pulse Rate 136 H 130 H 140 H Respiratory 18 20 Rate Blood Pressure 115/81 124/92 O2 Sat by Pulse 88 L 98 Oximetry Fraction of 40 Inspired Oxygen (FIO2) 08/11/21 08/11/21 08/11/21 15:02 15:06 15:34 Temperature Pulse Rate 120 H 133 H Respiratory 20 18 Rate Blood Pressure 118/87 O2 Sat by Pulse 92 L Oximetry Fraction of Inspired Oxygen (FIO2) 08/11/21 16:29 Temperature Pulse Rate 118 H Respiratory 18 Rate Blood Pressure 128/90 O2 Sat by Pulse 94 L Oximetry Fraction of Inspired Oxygen (FIO2) EKG Findings - EKG Comments: EKG Findings:: EKG: Atrial fibrillation with RVR, rate of 137, low voltage, QRS duration 86, QTC [address] segment elevation. Medical Decision Making - Medical Decision Making 65-year-old female presenting with dyspnea. This is likely multifactorial. Secondary to hypoventilation, COPD, and new-onset CHF secondary to A. fib with RVR. Patient placed on Cardizem, given Lasix in the emergency department. She is already on Coumadin prior to this event today. She will be admitted to internal medicine with cardiology on consultation. Diagnosis: Multifactorial dyspnea, afebrile is with RVR, CHF, obesity associated hypoventilation. - Lab Data Result diagrams: 08/11/21 14:53 08/11/21 15:28 Lab Results 08/11/21 08/11/21 08/11/21 Range/Units 14:53 14:53 15:28 WBC 10.0 (3.8-10.6) k/uL RBC 3.99 (3.80-5.40) m/uL Hgb 11.5 (11.4-16.0) gm/dL Hct 38.2 (34.0-46.0) % MCV 95.8 (80.0-100.0) fL MCH 28.8 (25.0-35.0) pg MCHC 30.1 L (31.0-37.0) g/dL RDW 15.7 H (11.5-15.5) % Plt Count 372 (150-450) k/uL MPV 7.8 Neutrophils % 76 % Lymphocytes % 16 % Monocytes % 6 % Eosinophils % 1 % Basophils % 1 % Neutrophils # 7.6 (1.3-7.7) k/uL Lymphocytes # 1.6 (1.0-4.8) k/uL Monocytes # 0.6 (0-1.0) k/uL Eosinophils # 0.1 (0-0.7) k/uL Basophils # 0.1 (0-0.2) k/uL Hypochromasia Marked PT 15.3 H (9.0-12.0) sec INR 1.5 H (<1.2) APTT 32.7 H (22.0-30.0) sec Sodium 136 L (137-145) mmol/L Potassium 3.9 (3.5-5.1) mmol/L Chloride 87 L (98-107) mmol/L Carbon Dioxide 42 H* (22-30) mmol/L Anion Gap 7 mmol/L BUN 20 H (7-17) mg/dL Creatinine 0.52 (0.52-1.04) mg/dL Est GFR (CKD-EPI)AfAm >90 (>60 ml/min/1.73 sqM) Est GFR (CKD-EPI)NonAf >90 (>60 ml/min/1.73 sqM) Glucose 148 H (74-99) mg/dL Calcium 8.8 (8.4-10.2) mg/dL Magnesium 2.1 (1.6-2.3) mg/dL Total Bilirubin 0.9 (0.2-1.3) mg/dL AST 21 (14-36) U/L ALT 10 (4-34) U/L Alkaline Phosphatase 102 (38-126) U/L Troponin I (0.000-0.034) ng/mL Total Protein 7.1 (6.3-8.2) g/dL Albumin 3.3 L (3.5-5.0) g/dL 08/11/ Range/Units 15:28 WBC (3.8-10.6) k/uL RBC (3.80-5.40) m/uL Hgb (11.4-16.0) gm/dL Hct (34.0-46.0) % MCV (80.0-100.0) fL MCH (25.0-35.0) pg MCHC (31.0-37.0) g/dL RDW (11.5-15.5) % Plt Count (150-450) k/uL MPV Neutrophils % % Lymphocytes % % Monocytes % % Eosinophils % % Basophils % % Neutrophils # (1.3-7.7) k/uL Lymphocytes # (1.0-4.8) k/uL Monocytes # (0-1.0) k/uL Eosinophils # (0-0.7) k/uL Basophils # (0-0.2) k/uL Hypochromasia PT (9.0-12.0) sec INR (<1.2) APTT (22.0-30.0) sec Sodium (137-145) mmol/L Potassium (3.5-5.1) mmol/L Chloride (98-107) mmol/L Carbon Dioxide (22-30) mmol/L Anion Gap mmol/L BUN (7-17) mg/dL Creatinine (0.52-1.04) mg/dL Est GFR (CKD-EPI)AfAm (>60 ml/min/1.73 sqM) Est GFR (CKD-EPI)NonAf (>60 ml/min/1.73 sqM) Glucose (74-99) mg/dL Calcium (8.4-10.2) mg/dL Magnesium (1.6-2.3) mg/dL Total Bilirubin (0.2-1.3) mg/dL AST (14-36) U/L ALT (4-34) U/L Alkaline Phosphatase (38-126) U/L Troponin I <0.012 (0.000-0.034) ng/mL Total Protein (6.3-8.2) g/dL Albumin (3.5-5.0) g/dL Critical Care Time Critical Care Time: Yes Total Critical Care Time: 35 Disposition Clinical Impression: CHF (congestive heart failure), COPD (chronic obstructive pulmonary disease), Atrial fibrillation with RVR Disposition: ADMITTED IP TO THIS HOSP Condition: Stable Is patient prescribed a controlled substance at d/c from ED?: No Referrals: Frank Vera MD [Primary Care Provider] - 1-2 days Time of Disposition: 16:54
[2021-08-11] MEDS ORDERED: DILTIAZEM 125 MG in SODIUM CHLORIDE 0.9% 100 ML IV SCH (15:00)
[2021-08-11 15:07] LABS: Basophils # (A) 0.1 k/uL (0-0.2); Basophils % (A) 1 %; Eosinophils # (A) 0.1 k/uL (0-0.7); Eosinophils % (A) 1 %; HCT 38.2 % (34.0-46.0); HGB 11.5 gm/dL (11.4-16.0); Hypochromasia Marked; Lymphocytes # (A) 1.6 k/uL (1.0-4.8); Lymphocytes % (A) 16 %; MCH 28.8 pg (25.0-35.0); MCHC 30.1 g/dL (31.0-37.0); MCV 95.8 fL (80.0-100.0); Mean Platelet Volume 7.8; Monocytes # (A) 0.6 k/uL (0-1.0); Monocytes % (A) 6 %; Neutrophils # (A) 7.6 k/uL (1.3-7.7); Neutrophils % (A) 76 %; Platelet Count 372 k/uL (150-450); RBC 3.99 m/uL (3.80-5.40); RDW 15.7 % (11.5-15.5)
[2021-08-11 15:39] LABS: INR 1.5 (<1.2); Partial Thromboplastin Time 32.7 sec (22.0-30.0); Prothrombin Time 15.3 sec (9.0-12.0)
--- NOTE | 2021-08-11 15:42 | XR ---
EXAMINATION TYPE: XR chest 1V portable DATE OF EXAM: 08/11/2021 COMPARISON: 08/09/2018 INDICATION: Difficulty in breathing difficulty TECHNIQUE: Single frontal view of the chest is obtained. FINDINGS: The heart size is enlarged. The pulmonary vasculature is prominent. There is mild diffuse increased lung markings bilaterally. IMPRESSION: 1. Medical correlation recommended for congestive heart failure.
[2021-08-11 16:11] LABS: ALT 10 U/L (4-34); AST 21 U/L (14-36); African American GFR (CKD) >90 (>60 ml/min/1.73 sqM); Albumin 3.3 g/dL (3.5-5.0); Alkaline Phosphatase 102 U/L (38-126); Blood Urea Nitrogen 20 mg/dL (7-17); Calcium 8.8 mg/dL (8.4-10.2); Chloride 87 mmol/L (98-107); Glucose 148 mg/dL (74-99); Magnesium 2.1 mg/dL (1.6-2.3); Non-African American GFR(CKD) >90 (>60 ml/min/1.73 sqM); Potassium 3.9 mmol/L (3.5-5.1); Sodium 136 mmol/L (137-145); Total Bilirubin 0.9 mg/dL (0.2-1.3); Total Protein 7.1 g/dL (6.3-8.2)
[2021-08-11 16:17] LABS: Anion Gap 7 mmol/L
[2021-08-11 16:45] LABS: Carbon Dioxide 42 mmol/L (22-30)
[2021-08-11] MEDS ORDERED: FUROSEMIDE 10 MG/ML 4 ML VIAL IV STA (16:45)
[2021-08-11] MEDS ORDERED: ACETAMINOPHEN TAB 325 MG TAB PO PRN (16:51)
[2021-08-11] MEDS ORDERED: NALOXONE 0.4 MG/ML 1 ML VIAL IV PRN (16:51)
[2021-08-11] MEDS ORDERED: guaiFENesin SYRUP 100MG/5ML 200 MG/10 ML CUP PO PRN (17:17)
[2021-08-11] MEDS ORDERED: ACETAMINOPHEN TAB 500 MG TAB PO PRN (17:17)
[2021-08-11] MEDS ORDERED: METHYL SALICYLATE-MENTHOL OINT (3 OZ TUBE) TOPICAL PRN (17:17)
[2021-08-11] MEDS ORDERED: NON FORMULARY DRUG (Fluocinolone Acetonide Oil [Fluocinolone Acetonide Oil 0.01% (Otic)] 2 BOTH EARS PRN (17:17)
[2021-08-11] MEDS ORDERED: LIDOCAINE 5% OINTMENT 50 GM JAR TOPICAL PRN (17:17)
[2021-08-11] MEDS ORDERED: bisacodyL 10 MG SUPP RECTAL PRN (17:17)
[2021-08-11] MEDS ORDERED: ARTIFICIAL TEARS-HYPROMELLOSE DROPS 15 ML BTL BOTH EYES PRN (17:17)
[2021-08-11] MEDS ORDERED: MAGNESIUM HYDROXIDE 2,400 MG/10 ML CUP PO PRN (17:17)
[2021-08-11] MEDS ORDERED: LORazepam 1 MG TAB PO PRN (17:17)
[2021-08-11] MEDS ORDERED: SIMETHICONE 80 MG CHEWABLE PO PRN (17:17)
[2021-08-11] MEDS ORDERED: IPRATROPIUM-ALBUTEROL 3 ML NEB INHALATION PRN (17:21)
[2021-08-11] MEDS ORDERED: WARFARIN 3 MG TAB PO ONE (18:00)
[2021-08-11 18:19] LABS: Glucose,Whole Blood 159 mg/dL (75-99)
[2021-08-11] MEDS: INSULIN ASPART (NovoLOG) 100 UNIT/ML VIAL SQ SCH ×2 (18:19→22:31)
--- NOTE | 2021-08-11 18:30 | HP ---
HISTORY AND PHYSICAL CHIEF COMPLAINTS: Shortness of breath and atrial fibrillation. HISTORY OF PRESENT ILLNESS: This 65-year-old woman with a past medical history of multiple medical problems, including asthma, COPD, diabetes mellitus, pulmonary embolism, being followed by Dr. Vera in the outpatient setting, was complaining of increasing shortness of breath. The patient was found to be in atrial fibrillation with a fast ventricular rate. The patient also had a chest x-ray which was evaluated personally by me. It showed significant CHF and cardiomegaly. The patient is admitted for further evaluation and treatment. There is no history of any fever, rigors or chills. No history of headache, loss of consciousness, seizures. PAST MEDICAL HISTORY: History of diabetes mellitus, history of pulmonary embolism, COPD. HOME MEDICATIONS: Reviewed. They include Glucotrol. Doses and the rest of the medications are reviewed. ALLERGIES: ALLERGIES INCLUDE CIPRO. The rest of the allergies are reviewed. FAMILY HISTORY: No history of heart disease or strokes in the family. SOCIAL HISTORY: The patient is bed-bound and at [facility]. REVIEW OF SYSTEMS: Fourteen-point review of systems negative except as mentioned earlier. PHYSICAL EXAMINATION: Pulse is 133, blood pressure 118/70, respiration 18. HEENT: Conjunctivae normal. NECK: No jugular venous distention. CARDIOVASCULAR: S1, S2 irregularly irregular. RESPIRATION: Breath sounds diminished at the bases. A few scattered rhonchi and crackles. ABDOMEN: Soft, obese. LEGS: Bilateral leg edema and some skin breakdown also present. JOINTS: No active deforming arthropathy. LYMPHATICS: No lymph node palpable in neck, axillae or groin. SKIN: As mentioned earlier. LABS: Reviewed. They include sodium 136 and CO2 is 42. ASSESSMENT: 1. Atrial fibrillation with fast ventricular rate. 2. Congestive heart failure, acute exacerbation. 3. Obesity. 4. Chronic obstructive pulmonary disease. 5. Diabetes mellitus, type 2. 6. History of pulmonary embolism. 7. History of ESBL, MRSA. RECOMMENDATIONS AND DISCUSSION: In this 65-year-old woman who presented with multiple complex medical issues, we will monitor the patient. We will institute intensive diuretic treatment with Lasix and also Cardizem drip. Otherwise, cardiology consultation. Full cardiac workup, including 2D echo. I would also recommend pulmonary and infectious disease evaluations because of the other multiple complex issues as listed earlier. Overall prognosis is extremely guarded. Home medication will be continued once they are reconciled. Discussed with the patient, who understands and agrees. Further recommendations to follow. A copy of this dictation is being forwarded to Dr. Vera, who is the primary physician. TORIBIO / DANIELE: [id number] / MTDD
[2021-08-11] MEDS: IPRATROPIUM-ALBUTEROL 3 ML NEB INHALATION SCH (19:30)
[2021-08-11 22:30] LABS: Glucose,Whole Blood 149 mg/dL (75-99)
[2021-08-11] MEDS ORDERED: METOPROLOL TARTRATE 12.5 MG TAB PO SCH (23:00)
[2021-08-11] MEDS: FUROSEMIDE 10 MG/ML 4 ML VIAL IV SCH (23:48)
[2021-08-11] MEDS: PANTOPRAZOLE 40 MG TABLET PO SCH (23:49)
[2021-08-11] MEDS: QUEtiapine 100 MG TAB PO SCH (23:50)
[2021-08-12] MEDS: IPRATROPIUM-ALBUTEROL 3 ML NEB INHALATION SCH ×3 (07:16→19:19)
[2021-08-12] MEDS ORDERED: HEPARIN SODIUM 1,000 UN/ML (10ML VL) IV PRN (08:25)
[2021-08-12] MEDS ORDERED: HEPARIN SODIUM 1,000 UN/ML (10ML VL) IV ONE (08:25)
[2021-08-12] MEDS ORDERED: DEXTROSE 5% IN WATER 100 ML with AMIODARONE 150 MG IV ONE (08:50)
[2021-08-12] MEDS ORDERED: AMIODARONE 360 MG in DEXTROSE 5% IN WATER 200 ML IV ONE ×2 (09:00)
[2021-08-12 09:02] LABS: INR 1.3 (<1.2); Prothrombin Time 13.6 sec (9.0-12.0)
[2021-08-12 09:13] LABS: Anisocytosis Slight; Basophils % (A) 0 %; Eosinophils % (A) 0 %; HCT 37.4 % (34.0-46.0); HGB 11.3 gm/dL (11.4-16.0); Hypochromasia Marked; Lymphocytes # (A) 1.3 k/uL (1.0-4.8); Lymphocytes % (A) 13 %; MCH 29.2 pg (25.0-35.0); MCHC 30.2 g/dL (31.0-37.0); MCV 96.7 fL (80.0-100.0); Mean Platelet Volume 7.5; Monocytes # (A) 0.4 k/uL (0-1.0); Monocytes % (A) 4 %; Neutrophils # (A) 7.7 k/uL (1.3-7.7); Neutrophils % (A) 80 %; Platelet Count 404 k/uL (150-450); RBC 3.87 m/uL (3.80-5.40); RDW 16.1 % (11.5-15.5); WBC 9.7 k/uL (3.8-10.6)
[2021-08-12 09:22] LABS: Partial Thromboplastin Time 38.4 sec (22.0-30.0)
--- NOTE | 2021-08-12 09:32 | P.CRDCN ---
History of Present Illness Consult date: 08/12/21 History of present illness: HISTORY OF PRESENT ILLNESS: This is a 65-year-old female with a past medical history significant for COPD, hypertension, hypothyroidism, and PE/DVT on Coumadin. Patient was last seen in the office in [address] Carlos. We have been asked to see the patient in consultation for A. fib with RVR. Patient examined at the bedside. The patient apparently was brought to the hospital from [facility] secondary to hypoxia. The patient states when they checked her oxygen saturations on her finger she was found to be 75%. She does report feeling short of breath. She denies any chest pain. She reports some swelling in her lower extremities and states that her leg feels like it is asleep and is requesting to be repositioned in bed. The patient was found to be in A. fib with RVR. The patient denies any history of atrial fibrillation. The patient was started on a Cardizem drip at 10 mg an hour. She remains in atrial fibrillation this morning with a heart rate in the 120s. * EKG reveals A. fib with RVR * Chest xray medical correlation recommended for congestive heart failure * Laboratory data: WBC 10.0. Hemoglobin 11.5. Platelet count 372. Sodium 136. Potassium 3.9. BUN 20. Creatinine 0.52. Troponin negative 1 * Current home cardiac medications include warfarin 5 mg Monday and 2.5 mg Monday, metoprolol tartrate 12.5 mg twice a day, Lasix 40 mg the morning and 20 mg in the afternoon * Most recent echocardiogram obtained in 2019 revealing ejection fraction 60- 65%, mild tricuspid regurgitation REVIEW OF SYSTEMS: At the time of my exam: CONSTITUTIONAL: Denies fever or chills. HEENT: Denies blurred vision, vision changes, or eye pain. Denies hemoptysis CARDIOVASCULAR: Denies chest pain. Denies orthopnea. Denies PND. Denies palpitations RESPIRATORY: Denies shortness of breath. GASTROINTESTINAL: Denies abdominal pain. Denies nausea or vomiting. HEMATOLOGIC: Denies bleeding disorders. GENITOURINARY: Denies any blood in urine. SKIN: Denies pruitis. Denies rash. PHYSICAL EXAM: VITAL SIGNS: Reviewed. GENERAL: Well-developed in no acute distress. HEENT: Head is normocephalic. Pupils are equal, round. Sclerae anicteric. Mucous membranes of the mouth are moist. Neck supple. No JVD or thyromegaly LUNGS: Respirations even and unlabored. Lungs diminished to auscultation bilaterally. HEART: Tachycardic. Irregular rate and rhythm. S1 and S2 heard. ABDOMEN: Soft. Nondistended. Nontender. EXTREMITIES: Normal range of motion. No clubbing or cyanosis. Peripheral pulses intact. Bilateral lower extremity edema present NEUROLOGIC: Awake and alert. Oriented x 3. ASSESSMENT: New onset A. fib with RVR Acute hypoxic respiratory failure Acute on chronic heart failure with preserved ejection fraction COPD Hypertension Hypothyroidism History of PE/DVT on Coumadin Diabetes PLAN: Obtain 2-D echo to assess cardiac structure and function Resume home cardiac medications Discontinue IV Cardizem Begin IV amiodarone bolus and drip per protocol Continue metoprolol Continue telemetry monitoring Continue Coumadin. Monitor INR Begin IV heparin until Coumadin is therapeutic with an INR of 2.0 or greater Check TSH Check d-dimer Continue IV Lasix Monitor kidney function Daily weights Accurate I&O Further recommendations pending patient's course Nurse practitioner note has been reviewed by physician. Signing provider agrees with the documented findings, assessment, and plan of care. Past Medical History Past Medical History: COPD, Diabetes Mellitus, Hypertension, Osteoarthritis (O A), Pulmonary Embolus (PE), Skin Disorder, Thyroid Disorder Additional Past Medical History / Comment(s): Morbid obesity, Diabetes mellitus, hypertension, previous history of pulmonary embolism/DVT, osteoarthritis, hypothyroidism, eczema, osteoarthritis of the lower extremities including knees and ankles and the patient has received steroid shots, chronic allergic rhinitis , vertigo, congestive heart failure, COPD, lymphedema, anemia, diabetic neuropathy, History of Any Multi-Drug Resistant Organisms: ESBL, MRSA Date of last positivie culture/infection: 04/27/20 ESBL 06/10/19 MRSA MDRO Source:: ESBL URINE MRSA ABDOMEN Past Surgical History: Breast Surgery, Cholecystectomy, Orthopedic Surgery Additional Past Surgical History / Comment(s): LT WRIST GANGLION CYST. 3 BREAST SURGERIES - BENIGN. RTR. SINUS SURGERY. D&C 07/2014. Past Anesthesia/Blood Transfusion Reactions: Motion Sickness Additional Past Anesthesia/Blood Transfusion Reaction / Comment(s): Claustrophobia Past Psychological History: Bipolar, Depression Smoking Status: Never smoker Past Alcohol Use History: None Reported Past Drug Use History: None Reported - Past Family History Mother Family Medical History: Unable to Obtain Father Family Medical History: Unable to Obtain Medications and Allergies Home Medications Medication Instructions Recorded Confirmed Type Escitalopram [Lexapro] 20 mg PO DAILY@1000 07/31/14 08/11/21 History Levothyroxine Sodium [Synthroid] 88 mcg PO DAILY@1000 07/31/14 08/11/21 History QUEtiapine FUMARATE [SEROquel] 300 mg PO HS@2300 07/31/14 08/11/21 History Linagliptin [Tradjenta] 5 mg PO DAILY@1700 11/30/15 08/11/21 History fluocinolone acetonide oiL 5 drops BOTH EARS BID PRN 04/16/16 08/11/21 History [fluocinolone acetonide oiL 0.01% (Otic)] Acetaminophen Tab [Tylenol] 500 mg PO Q6H PRN 11/13/19 08/11/21 History Ascorbic Acid [Vitamin C] 500 mg PO DAILY@17011/13/19 08/11/21 History Calcium Carb-Vit D 500Mg-5Mcg 1 tab PO DAILY@1700 11/13/19 08/11/21 History [Oscal 500+D 5 Mcg (200 Iu)] Docusate [Colace] 100 mg PO DAILY@99911/13/19 08/11/21 History Ferrous Sulfate [Iron (65 MG 325 mg PO BID@1000,1700 11/13/19 08/11/21 History Elemental)] Lidocaine 5% Oint [Xylocaine 5% 1 applic TOPICAL HS PRN 11/13/19 08/11/21 History Oint] Magnesium Hydroxide [Milk of 7,200 mg PO Q48H PRN 11/13/19 08/11/21 History Magnesia Concentrate] Medroxyprogesterone Acetate 10 mg PO DAILY@99911/13/19 08/11/21 History [Provera] Menthol [Biofreeze] 1 applic TOPICAL DAILY PRN 11/13/19 08/11/21 History QUEtiapine [SEROquel] 50 mg PO DAILY@1200 11/13/19 08/11/21 History Simethicone [Simethicone Chew] 80 mg PO PC-TID PRN 11/13/19 08/11/21 History Warfarin [Coumadin] 2.5 mg PO SUTUTHSA@1700 11/13/19 08/11/21 History Warfarin [Coumadin] 5 mg PO MOWEFR@17011/13/19 08/11/21 History bisacodyL 10 mg RECTAL DAILY PRN 11/13/19 08/11/21 History guaiFENesin [guaiFENesin Oral 100 mg PO Q4H PRN 11/13/19 08/11/21 History Solution] LORazepam [Ativan] 1 mg PO BID@1000,1700 #6 tab 11/18/19 08/11/21 Rx Cholecalciferol [Vitamin D3 (25 100 mcg PO DAILY@1200 08/25/20 08/11/21 History Mcg = 1000 Iu)] Folic Acid 0.4 mg PO DAILY@1000 08/25/20 08/11/21 History Furosemide [Lasix] 20 mg PO DAILY@1700 08/25/20 08/11/21 History Lactobacillus Acidophilus 1 cap PO DAILY@1200 08/25/20 08/11/21 History [Acidophilus Probiotic] Acetaminophen [Tylenol] 650 mg PO Q6H PRN 08/11/21 08/11/21 History Artificial Tears-Hypromellose 2 drops BOTH EYES QID PRN 08/11/21 08/11/21 His tory [Artificial Tear Drops] Calcium Carbonate [Tums] 500 mg PO DAILY@169908/11/21 08/11/21 History Clotrimazole [Clotrimazole AF] 1 applic TOPICAL MOWEFR 08/11/21 08/11/21 History Cyanocobalamin [Vitamin B-12] 500 mcg PO DAILY@169908/11/21 08/11/21 History Furosemide [Lasix] 40 mg PO DAILY@1000 08/11/21 08/11/21 History LORazepam [Ativan] 1 mg PO Q4H PRN 08/11/21 08/11/21 History Metoprolol Tartrate [Lopressor] 12.5 mg PO BID@1000,2300 08/11/21 08/11/21 History Multivitamins, Thera [Multivitamin 1 tab PO DAILY@169908/11/21 08/11/21 History (formulary)] Omeprazole [PriLOSEC] 20 mg PO HS@2200 08/11/21 08/11/21 History Phytonadione [Vitamin K] 5 mg PO ONCE 08/11/21 08/11/21 History Triamcinolone 0.5% Cream [Kenalog 1 applic TOPICAL MOWEFR 08/11/21 08/11/21 Hi story 0.5% Cream] glipiZIDE [Glucotrol] 2.5 mg PO DAILY@1000 08/11/21 08/11/21 History Allergies Allergy/AdvReac Type Severity Reaction Status Date / Time ciprofloxacin [From Cipro] Allergy Severe HIVES Verified 08/11/21 16:05 ciprofloxacin HCl Allergy Severe HIVES Verified 08/11/21 16:05 [From Cipro] clarithromycin [From Biaxin] Allergy Severe HIVES Verified 08/11/21 16:05 codeine Allergy Severe HIVES Verified 08/11/21 16:05 hydrocodone bitartrate Allergy Severe Rash/Hives Verified 08/11/21 16:05 [From Vicodin] alprazolam [From Xanax] Allergy Unknown HIVES Verified 08/11/21 16:05 clindamycin HCl Allergy Unknown HIVES Verified 08/11/21 16:05 [From Cleocin] clindamycin palmitate HCl Allergy Unknown HIVES Verified 08/11/21 16:05 [From Cleocin] clindamycin phosphate Allergy Unknown HIVES Verified 08/11/21 16:05 [From Cleocin] honey Allergy Unknown Anaphylaxis Verified 08/11/21 16:05 metformin Allergy Unknown Anaphylaxis Verified 08/11/21 16:05 doxycycline Allergy Unknown Verified 08/11/21 16:05 duloxetine HCl AdvReac Severe Nausea Verified 08/11/21 16:05 [From Cymbalta] Penicillins AdvReac Severe Abdominal Verified 08/11/21 16:05 Pain Sulfa (Sulfonamide AdvReac Severe HEADACHE Verified 08/11/21 16:05 Antibiotics) buspirone HCl [From BuSpar] AdvReac Unknown Nausea & Verified 08/11/21 16:05 Vomiting cornmeal Allergy Unknown Rash/Hives Uncoded 08/11/21 16:05 Physical Exam Vitals: Vital Signs Temp Pulse Resp BP Pulse Ox FiO2 08/12/21 07:33 112 H 08/12/21 07:16 118 H 90 L 08/12/21 04:00 118 H 18 109/71 94 L 05/26/22 01:00 113 H 20 115/56 93 L 08/11/21 21:00 117 H 18 122/78 92 L 08/11/21 20:00 118 H 18 108/70 94 L 08/11/21 19:42 120 H 08/11/21 19:31 131 H 08/11/21 19:18 115 H 08/11/21 18:12 120 H 18 112/83 94 L 08/11/21 17:37 124 H 18 123/77 96 08/11/21 16:29 118 H 18 128/90 94 L 08/11/21 15:34 133 H 18 118/87 92 L 08/11/21 15:06 120 H 08/11/21 15:02 20 08/11/21 15:01 140 H 20 124/92 98 08/11/21 14:53 130 H 40 08/11/21 14:35 98 F 136 H 18 115/81 88 L Intake and Output 08/11/21 08/12/21 08/12/21 22:59 06:59 14:59 Intake Total 2.75 Output Total 10 Balance 2.75 -10 Intake: Intake, IV Titration 2.75 Amount Diltiazem 125 mg In 2.75 Sodium Chloride 0.9% 100 ml @ 5 MG/HR 5 mls/hr IV .Q24H [facility] Rx#:[id number] Output: Urine 10 Uretheral (Claros) 10 Results 08/12/21 07:45 08/11/21 15:28 Cardiac Enzymes 08/11/21 08/11/21 Range/Units 15:28 15:28 AST 21 (14-36) U/L Troponin I <0.012 (0.000-0.034) ng/mL Coagulation 08/11/21 Range/Units 14:53 PT 15.3 H (9.0-12.0) sec APTT 32.7 H (22.0-30.0) sec CBC 08/11/21 Range/Units 14:53 WBC 10.0 (3.8-10.6) k/uL RBC 3.99 (3.80-5.40) m/uL Hgb 11.5 (11.4-16.0) gm/dL Hct 38.2 (34.0-46.0) % Plt Count 372 (150-450) k/uL Comprehensive Metabolic Panel 08/11/21 Range/Units 15:28 Sodium 136 L (137-145) mmol/L Potassium 3.9 (3.5-5.1) mmol/L Chloride 87 L (98-107) mmol/L Carbon Dioxide 42 H* (22-30) mmol/L BUN 20 H (7-17) mg/dL Creatinine 0.52 (0.52-1.04) mg/dL Glucose 148 H (74-99) mg/dL Calcium 8.8 (8.4-10.2) mg/dL AST 21 (14-36) U/L ALT 10 (4-34) U/L Alkaline Phosphatase 102 (38-126) U/L Total Protein 7.1 (6.3-8.2) g/dL Albumin 3.3 L (3.5-5.0) g/dL Current Medications Generic Name Dose Route Start Last Admin Trade Name Freq PRN Reason Stop Dose Admin Acetaminophen 650 mg 08/11/21 16:51 Acetaminophen Tab 325 Mg Tab PO Q6HR PRN Mild Pain or Fever > 100.5 Albuterol/Ipratropium 3 ml 08/11/21 20:00 08/12/21 07:16 Ipratropium-Albuterol 3 Ml Neb INHALATION 3 ml RT-TID [facility] Administration Ascorbic Acid 500 mg 08/12/21 17:00 Ascorbic Acid 500 Mg Tab PO DAILY@1700 [facility] Bisacodyl 10 mg 08/11/21 17:17 Bisacodyl 10 Mg Supp RECTAL DAILY PRN Constipation Calcium Carbonate 1 each 08/12/21 17:00 Calcium Carb-Vit D 500 Mg-5 Mcg Tab PO DAILY@1700 [facility] Calcium Carbonate/Glycine 500 mg 08/12/21 17:00 Calcium Carbonate 500 Mg Chewable PO DAILY@1700 [facility] Cholecalciferol 100 mcg 08/12/21 12:00 Cholecalciferol 25 Mcg (1000 Iu) Tablet PO DAILY@1200 [facility] Cyanocobalamin 500 mcg 08/12/21 17:00 Cyanocobalamin 500 Mcg Tab PO DAILY@1700 [facility] Docusate Sodium 100 mg 08/12/21 10:00 Docusate 100 Mg Cap PO DAILY@1000 [facility] Escitalopram Oxalate 20 mg 08/12/21 10:00 Escitalopram 20 Mg Tab PO DAILY@1000 [facility] Ferrous Sulfate 325 mg 08/12/21 10:00 Ferrous Sulfate 325 Mg Tab PO BID@1000,1700 [facility] Folic Acid 0.5 mg 08/12/21 10:00 Folic Acid 1 Mg Tab PO DAILY@1000 [facility] Furosemide 40 mg 08/12/21 00:00 08/11/21 23:48 Furosemide 10 Mg/Ml 4 Ml Vial IV 40 mg Q8HR [facility] Administration Glipizide 2.5 mg 08/12/21 10:00 Glipizide 2.5 Mg Tab PO DAILY@1000 [facility] Guaifenesin 100 mg 08/11/21 17:17 Guaifenesin Syrup 100mg/5ml 200 Mg/10 Ml Cup PO Q4H PRN Cough Diltiazem HCl 125 mg/ Sodium 125 mls @ 5 mls/hr 08/11/21 15:00 08/11/21 15:33 Chloride IV 10 mg/hr .Q24H [facility] 10 mls/hr Infusion 5 MG/HR Insulin Aspart 0 unit 08/11/21 18:00 08/11/21 22:31 Insulin Aspart (Novolog) 100 Unit/Ml Vial SQ Not Given ACHS [facility] Protocol Lactobacillus Acidoph/Bulgaricus 1 each 08/12/21 12:00 Lactobacillus Acidoph & Bulgar 1 Each Packet PO DAILY@1200 [facility] Levothyroxine Sodium 88 mcg 08/12/21 10:00 Levothyroxine 88 Mcg Tab PO DAILY@1000 [facility] Lidocaine 1 applic 08/11/21 17:17 Lidocaine 5% Ointment 50 Gm Jar TOPICAL HS PRN WOUND PAIN Linagliptin 5 mg 08/12/21 17:00 Linagliptin 5 Mg Tablet PO DAILY@1700 [facility] Lorazepam 1 mg 08/11/21 17:17 Lorazepam 1 Mg Tab PO Q4H PRN Anxiety Lorazepam 1 mg 08/12/21 10:00 Lorazepam 1 Mg Tab PO BID@1000,1700 [facility] Magnesium Hydroxide 2,400 mg 08/11/21 17:17 Magnesium Hydroxide 2,400 Mg/10 Ml Cup PO Q48H PRN Constipation Medroxyprogesterone Acetate 10 mg 08/12/21 10:00 Medroxyprogesterone 10 Mg Tablet PO DAILY@1000 [facility] Methyl Salicylate 1 applic 08/11/21 17:17 Methyl Salicylate-Menthol Oint (3 Oz Tube) TOPICAL DAILY PRN pain Metoprolol Tartrate 12.5 mg 08/11/21 23:00 08/11/21 23:50 Metoprolol Tartrate 12.5 Mg Tab PO 12.5 mg BID@1000,2300 [facility] Administration Miscellaneous Information 1 each 08/11/21 16:45 Warfarin Per Pharmacy MISCELLANE DIRECTED PRN Per Protocol Protocol Multivitamins 1 each 08/12/21 17:00 Multivitamins, Thera 1 Each Tab PO DAILY@1700 [facility] Naloxone HCl 0.2 mg 08/11/21 16:51 Naloxone 0.4 Mg/Ml 1 Ml Vial IV Q2M PRN Opioid Reversal Pantoprazole Sodium 40 mg 08/11/21 22:00 08/11/21 23:49 Pantoprazole 40 Mg Tablet PO 40 mg HS@2200 [facility] Administration Quetiapine Fumarate 50 mg 08/12/21 12:00 Quetiapine 50 Mg Tab PO DAILY@1200 [facility] Quetiapine Fumarate 300 mg 08/11/21 23:00 08/11/21 23:50 Quetiapine 100 Mg Tab PO 300 mg HS@2300 [facility] Administration Simethicone 80 mg 08/11/21 17:17 Simethicone 80 Mg Chewable PO PC-TID PRN UPPERGASTRIC DISTRESS Intake and Output 08/11/21 08/12/21 08/12/21 22:59 06:59 14:59 Intake Total 2.75 Output Total 10 Balance 2.75 -10 Intake: Intake, IV Titration 2.75 Amount Diltiazem 125 mg In 2.75 Sodium Chloride 0.9% 100 ml @ 5 MG/HR 5 mls/hr IV .Q24H [facility] Rx#:[id number] Output: Urine 10 Uretheral (Claros) 10 08/11/21 14:53 08/11/21 15:28
[2021-08-12] MEDS: FERROUS SULFATE 325 MG TAB PO SCH ×2 (10:06→18:20)
[2021-08-12] MEDS: LEVOTHYROXINE 88 MCG TAB PO SCH (10:06)
[2021-08-12] MEDS: ESCITALOPRAM 20 MG TAB PO SCH (10:06)
[2021-08-12] MEDS: FUROSEMIDE 10 MG/ML 4 ML VIAL IV SCH ×3 (10:07→23:54)
[2021-08-12] MEDS: FOLIC ACID 1 MG TAB PO SCH (10:09)
[2021-08-12] MEDS: LORazepam 1 MG TAB PO SCH ×2 (10:09→18:18)
[2021-08-12] MEDS: INSULIN ASPART (NovoLOG) 100 UNIT/ML VIAL SQ SCH ×4 (10:12→20:46)
[2021-08-12] MEDS: DOCUSATE 100 MG CAP PO SCH (10:14)
--- NOTE | 2021-08-12 15:37 | P.CNPUL ---
History of Present Illness Consult date: 08/12/21 Reason for consult: dyspnea History of present illness: Morbidly obese 65-year-old female patient with chronic hypoxic and hypercapnic respiratory failure and a body mass index of 73 with chronic diastolic heart failure and chronic lower extremity edema in addition to multiple medical problems and comorbidities. The patient is known to have history of diabetes mellitus, hypertension, remote history of pulmonary embolism, hypothyroidism and the patient has been essentially sedentary and bedbound, nonambulatory for many years, a [facility] resident. The patient comes into the hospital because of worsening shortness of breath and increased lower extremity edema. Things have progressed over the past few weeks. No chest pain. No altered mentation. No angina. She is bedbound. As the patient was being transported, she was also found to be in atrial fibrillation with RVR and this is of a new onset. She is on long-term medical condition with warfarin and her PT/INR is subtherapeutic and the patient is currently on IV heparin. The patient was also started on Cardizem drip at 10 mg an hour and amiodarone drip per protocol currently at 1 mg per minute. Heart rate is under better control for now. She is also on diuretics 40 mg of IV Lasix every 8 hours. Review of Systems The patient is sedentary and the patient is unable to move and ambulate and she is bedbound. She is awake and alert and following commands and answering questions appropriately. ENT: Denies sneezes or discharge. Denies having any snoring or witnessed apneas. Eyes: Denies discharge or photophobia. Cardiac: Denies chest pain or palpitation. Pulmonary: Chronic dyspnea and shortness of breath. Obviously the patient has very limited exercise capacity. For now she is unable to walk and she is essentially chair bound. Breast: Denies discharge or lumps. Gastrointestinal: Denies nausea, emesis, constipation, diarrhea. Genitourinary: Denies discharge or frequency. Musculoskeletal: Severe bilateral knee pain. The patient is also some significant increase in the swelling of swelling lower extremities bilaterally. Neurologic: Denies motor or sensory change. Motor weakness and lower extremity is a present bilaterally. Endocrine: Denies shakes or sweats. Oncology: Denies cancers. Dermatologic: Denies rash, itching, pruritus. ALLERGY/immunology: Denies sneezes, rashes. Past Medical History Past Medical History: COPD, Diabetes Mellitus, Hypertension, Osteoarthritis (OA), Pulmonary Embolus (PE), Skin Disorder, Thyroid Disorder Additional Past Medical History / Comment(s): Morbid obesity, Diabetes mellitus, hypertension, previous history of pulmonary embolism/DVT, osteoarthritis, hypothyroidism, eczema, osteoarthritis of the lower extremities including knees and ankles and the patient has received steroid shots, chronic allergic rhinitis, vertigo, congestive heart failure, COPD, lymphedema, anemia, diabetic neuropathy, History of Any Multi-Drug Resistant Organisms: ESBL, MRSA Date of last positivie culture/infection: 04/27/20 ESBL 06/10/19 MRSA MDRO Source:: ESBL URINE MRSA ABDOMEN Past Surgical History: Breast Surgery, Cholecystectomy, Orthopedic Surgery Additional Past Surgical History / Comment(s): LT WRIST GANGLION CYST. 3 BREAST SURGERIES - BENIGN. RTR. SINUS SURGERY. D&C 07/2014. Past Anesthesia/Blood Transfusion Reactions: Motion Sickness Additional Past Anesthesia/Blood Transfusion Reaction / Comment(s): Claustrophobia Past Psychological History: Bipolar, Depression Smoking Status: Never smoker Past Alcohol Use History: None Reported Past Drug Use History: None Reported - Past Family History Mother Family Medical History: Unable to Obtain Father Family Medical History: Unable to Obtain Medications and Allergies Home Medications Medication Instructions Recorded Confirmed Type Escitalopram [Lexapro] 20 mg PO DAILY@99907/31/14 08/11/21 History Levothyroxine Sodium [Synthroid] 88 mcg PO DAILY@99907/31/14 08/11/21 History QUEtiapine FUMARATE [SEROquel] 300 mg PO HS@2300 07/31/14 08/11/21 History Linagliptin [Tradjenta] 5 mg PO DAILY@169911/30/15 08/11/21 History fluocinolone acetonide oiL 5 drops BOTH EARS BID PRN 04/16/16 08/11/21 History [fluocinolone acetonide oiL 0.01% (Otic)] Acetaminophen Tab [Tylenol] 500 mg PO Q6H PRN 11/13/19 08/11/21 History Ascorbic Acid [Vitamin C] 500 mg PO DAILY@169911/13/19 08/11/21 History Calcium Carb-Vit D 500Mg-5Mcg 1 tab PO DAILY@169911/13/19 08/11/21 History [Oscal 500+D 5 Mcg (200 Iu)] Docusate [Colace] 100 mg PO DAILY@1000 11/13/19 08/11/21 History Ferrous Sulfate [Iron (65 MG 325 mg PO BID@1000,1700 11/13/19 08/11/21 History Elemental)] Lidocaine 5% Oint [Xylocaine 5% 1 applic TOPICAL HS PRN 11/13/19 08/11/21 History Oint] Magnesium Hydroxide [Milk of 7,200 mg PO Q48H PRN 11/13/19 08/11/21 History Magnesia Concentrate] Medroxyprogesterone Acetate 10 mg PO DAILY@1000 11/13/19 08/11/21 History [Provera] Menthol [Biofreeze] 1 applic TOPICAL DAILY PRN 11/13/19 08/11/21 History QUEtiapine [SEROquel] 50 mg PO DAILY@1200 11/13/19 08/11/21 History Simethicone [Simethicone Chew] 80 mg PO PC-TID PRN 11/13/19 08/11/21 History Warfarin [Coumadin] 2.5 mg PO SUTUTHSA@17011/13/19 08/11/21 History Warfarin [Coumadin] 5 mg PO MOWEFR@17011/13/19 08/11/21 History bisacodyL 10 mg RECTAL DAILY PRN 11/13/19 08/11/21 History guaiFENesin [guaiFENesin Oral 100 mg PO Q4H PRN 11/13/19 08/11/21 History Solution] LORazepam [Ativan] 1 mg PO BID@1000,1700 #6 tab 11/18/19 08/11/21 Rx Cholecalciferol [Vitamin D3 (25 100 mcg PO DAILY@1200 08/25/20 08/11/21 History Mcg = 1000 Iu)] Folic Acid 0.4 mg PO DAILY@1000 08/25/20 08/11/21 History Furosemide [Lasix] 20 mg PO DAILY@17008/25/20 08/11/21 History Lactobacillus Acidophilus 1 cap PO DAILY@119908/25/20 08/11/21 History [Acidophilus Probiotic] Acetaminophen [Tylenol] 650 mg PO Q6H PRN 08/11/21 08/11/21 History Artificial Tears-Hypromellose 2 drops BOTH EYES QID PRN 08/11/21 08/11/21 History [Artificial Tear Drops] Calcium Carbonate [Tums] 500 mg PO DAILY@1700 08/11/21 08/11/21 History Clotrimazole [Clotrimazole AF] 1 applic TOPICAL MOWEFR 08/11/21 08/11/21 History Cyanocobalamin [Vitamin B-12] 500 mcg PO DAILY@1700 08/11/21 08/11/21 History Furosemide [Lasix] 40 mg PO DAILY@1000 08/11/21 08/11/21 History LORazepam [Ativan] 1 mg PO Q4H PRN 08/11/21 08/11/21 History Metoprolol Tartrate [Lopressor] 12.5 mg PO BID@1000,2300 08/11/21 08/11/21 History Multivitamins, Thera [Multivitamin 1 tab PO DAILY@1700 08/11/21 08/11/21 History (formulary)] Omeprazole [PriLOSEC] 20 mg PO HS@2200 08/11/21 08/11/21 History Phytonadione [Vitamin K] 5 mg PO ONCE 08/11/21 08/11/21 History Triamcinolone 0.5% Cream [Kenalog 1 applic TOPICAL MOWEFR 08/11/21 08/11/21 History 0.5% Cream] glipiZIDE [Glucotrol] 2.5 mg PO DAILY@1000 08/11/21 08/11/21 History Allergies Allergy/AdvReac Type Severity Reaction Status Date / Time ciprofloxacin [From Cipro] Allergy Severe HIVES Verified 08/11/21 16:05 ciprofloxacin HCl Allergy Severe HIVES Verified 08/11/21 16:05 [From Cipro] clarithromycin [From Biaxin] Allergy Severe HIVES Verified 08/11/21 16:05 codeine Allergy Severe HIVES Verified 08/11/21 16:05 hydrocodone bitartrate Allergy Severe Rash/Hives Verified 08/11/21 16:05 [From Vicodin] alprazolam [From Xanax] Allergy Unknown HIVES Verified 08/11/21 16:05 clindamycin HCl Allergy Unknown HIVES Verified 08/11/21 16:05 [From Cleocin] clindamycin palmitate HCl Allergy Unknown HIVES Verified 08/11/21 16:05 [From Cleocin] clindamycin phosphate Allergy Unknown HIVES Verified 08/11/21 16:05 [From Cleocin] honey Allergy Unknown Anaphylaxis Verified 08/11/21 16:05 metformin Allergy Unknown Anaphylaxis Verified 08/11/21 16:05 doxycycline Allergy Unknown Verified 08/11/21 16:05 duloxetine HCl AdvReac Severe Nausea Verified 08/11/21 16:05 [From Cymbalta] Penicillins AdvReac Severe Abdominal Verified 08/11/21 16:05 Pain Sulfa (Sulfonamide AdvReac Severe HEADACHE Verified 08/11/21 16:05 Antibiotics) buspirone HCl [From BuSpar] AdvReac Unknown Nausea & Verified 08/11/21 16:05 Vomiting cornmeal Allergy Unknown Rash/Hives Uncoded 08/11/21 16:05 Physical Exam Vitals: Vital Signs Pulse Resp BP Pulse Ox 08/12/21 07:33 112 H 08/12/21 07:16 118 H 90 L 08/12/21 04:00 118 H 18 109/71 94 L 08/12/21 01:00 113 H 20 115/56 93 L 08/11/21 21:00 117 H 18 122/78 92 L 08/11/21 20:00 118 H 18 108/70 94 L 08/11/21 19:42 120 H 08/11/21 19:31 131 H 08/11/21 19:18 115 H 08/11/21 18:12 120 H 18 112/83 94 L 08/11/21 17:37 124 H 18 123/77 96 08/11/21 16:29 118 H 18 128/90 94 L 08/11/21 15:34 133 H 18 118/87 92 L Intake and Output 08/12/21 08/12/21 08/12/21 06:59 14:59 22:59 Output Total 10 Balance -10 Output: Urine 10 Uretheral (Claros) 10 Skin: Good color, texture, turgor. Morbidly obese, calm and comfortable, body mass index of 73 General: Morbidly obese build and comfortable appearance. Head: Normocephalic, atraumatic. Eyes: Symmetric. Pupils equal round. Ears: Symmetric. Hearing within normal limits. Mouth: Clear. Neck: Supple. Carotid without bruit. Mallampati class IV. Cardiac: Irregular consistent with atrial fibrillation with rapid ventricular response. Cardiac exam revealed the PMI to be normally situated and sized. No significant murmurs appreciated Lungs: Clear anteriorly and posteriorly. The breath sounds markedly diminished in the mid and lower lung his bilaterally. No wheezes. No rhonchi. Crackles are present in the lung bases bilaterally Abdomen: Soft active nontender obese. Extremities: Normal tone. There is significant swelling in lower extremities bilaterally and obvious arthritic changes in the knees bilaterally. There is an area of bruise over the left knee area where the fall and impact occurred. Neurological: Mental status: Alert, cooperative, pleasant. Cranial nerves: Symmetric facial tone and trapezius. Motor: Able to elevate both arms. Active movement at ankles but unable to elevate legs. Sensation: Intact throughout. DTRs: Symmetric and equal throughout. Mobility: Unable to sit or stand at due to knee pain and long-standing disc mobility. Results - Laboratory Findings CBC and BMP: 08/12/21 07:45 08/11/21 15:28 PT/INR, D-dimer PT 13.6 sec (9.0-12.0) H 08/12/21 07:45 INR 1.3 (<1.2) H 08/12/21 07:45 D-Dimer 1.58 mg/L FEU (<0.60) H 08/12/21 08:25 Abnormal lab findings: Abnormal Labs 08/11/21 08/11/21 08/11/21 14:53 14:53 15:28 Hgb MCHC 30.1 L RDW 15.7 H PT 15.3 H INR 1.5 H APTT 32.7 H D-Dimer Sodium 136 L Chloride 87 L Carbon Dioxide 42 H* BUN 20 H Glucose 148 H POC Glucose (mg/dL) Albumin 3.3 L 08/11/21 08/11/21 08/12/21 18:18 22:28 07:45 Hgb MCHC RDW PT 13.6 H INR 1.3 H APTT D-Dimer Sodium Chloride Carbon Dioxide BUN Glucose POC Glucose (mg/dL) 159 H 149 H Albumin 08/12/21 08/12/21 07:45 08:25 Hgb 11.3 L MCHC 30.2 L RDW 16.1 H PT INR APTT 38.4 H D-Dimer 1.58 H Sodium Chloride Carbon Dioxide BUN Glucose POC Glucose (mg/dL) Albumin - Diagnostic Findings Chest x-ray: image reviewed Assessment and Plan Plan: Acute shortness of breath, on top of chronic chronic, with acute worsening secondary to CHF and fluid overload. The chest x-ray is consistent with CHF, cardiomegaly and pulmonary edema and the patient has significant volume overload and increased lower extremity edema consistent with decompensated CHF. CHF probably a combination of biventricular diastolic heart failure with acute decompensation significant volume overload New-onset atrial fibrillation with rapid ventricular response currently on a combination of amiodarone drip and a Cardizem drip and the patient is on IV heparin. Chronic hypoxic respiratory failure, still on 2 L of oxygen by nasal cannula Morbid obesity with a BMI of 73.5 Chronic hypoxic and hypercapnic respiratory failure with a component of obesity hypoventilation syndrome Hypertension Previous history of pulmonary embolism maintained on long-term and to coagulation with warfarin, PT/INR is subtherapeutic Hypothyroidism Chronic lower extremity edema Diabetes mellitus residential resident Plan Optimize CHF. The patient will be started on diuretics with Lasix 40 g IV every 8 hours Monitor fluid balance Monitor renal function and electrolytes Strict input output Fluid restriction Amiodarone drip regarding new onset atrial fibrillation with rapid ventricular response. Cardizem drip will be also titrated to maintain an adequate heart rate Continue IV heparin In the correlation with warfarin will be resumed. INR is subtherapeutic for now Obtain an echocardiogram Check thyroid function tests Resume any medications from [facility] Long-term prognosis poor baseline above-mentioned comorbidities. We'll continue to follow.
[2021-08-12] MEDS: HEPARIN SOD,PORK IN 0.45% NACL 25,000 UNIT in 0.45% NACL 1 250ML.BAG IV SCH (16:07)
[2021-08-12] MEDS: METOPROLOL TARTRATE 25 MG TAB PO SCH ×2 (16:11→20:47)
[2021-08-12] MEDS: medroxyPROGESTERone 10 MG TABLET PO SCH (16:11)
[2021-08-12] MEDS: LACTOBACILLUS ACIDOPH & BULGAR 1 EACH PACKET PO SCH (16:13)
[2021-08-12] MEDS: QUEtiapine 50 MG TAB PO SCH (16:14)
[2021-08-12] MEDS: CHOLECALCIFEROL 25 MCG (1000 IU) TABLET PO SCH (16:15)
[2021-08-12] MEDS ORDERED: WARFARIN 2.5 MG TAB PO SCH (17:00)
[2021-08-12] MEDS ORDERED: WARFARIN 3 MG TAB PO ONE (18:00)
[2021-08-12] MEDS: ASCORBIC ACID 500 MG TAB PO SCH (18:18)
[2021-08-12] MEDS: MULTIVITAMINS, THERA 1 EACH TAB PO SCH (18:19)
[2021-08-12] MEDS: CYANOCOBALAMIN 500 MCG TAB PO SCH (18:19)
[2021-08-12] MEDS: CALCIUM CARB-VIT D 500 MG-5 MCG TAB PO SCH (18:19)
[2021-08-12] MEDS: LINAGLIPTIN 5 MG TABLET PO SCH (18:20)
[2021-08-12] MEDS: CALCIUM CARBONATE 500 MG CHEWABLE PO SCH (18:20)
[2021-08-12 19:37] LABS: Glucose,Whole Blood 168 mg/dL (75-99)
[2021-08-12] MEDS: AMIODARONE 450 MG in DEXTROSE 5% IN WATER 250 ML IV SCH ×2 (20:45)
[2021-08-12] MEDS: PANTOPRAZOLE 40 MG TABLET PO SCH (20:47)
[2021-08-12] MEDS: QUEtiapine 100 MG TAB PO SCH (21:44)
--- NOTE | 2021-08-13 02:43 | P.PN ---
Subjective Progress Note Date: 08/12/21 This 65-year-old female was recently admitted with CHF and atrial fibrillation cardio following closely. Patient was maintained on IV Cardizem which is currently being transitioned IV amiodarone along with IV heparin. 2-D echo was ordered and pending at this time. Patient continues on 2 L of oxygen via nasal cannula at 90% oxygen pulse ox and continues to report shortness of breath and generalized weakness. Patient is morbidly obese with a BMI of 73.5 and resides in [facility]. Patient's blood pressure is elevated and will initiate Norvasc 10 mg daily and monitor closely. Infectious disease also consulted for a wound on the left hip along with pulmonary for COPD acute exacerbation. Patient denies any chest pain and patient is afebrile. Review of systems: Constitutional: reports of fatigue and weakness, reports of fever, or chills Cardiovascular: No reports of chest pain or palpitations Respiratory: reports of shortness of breath GI: No reports of nausea, no reports of of vomiting : No reports of dysuria or retention Neurovascular: reports of generalized weakness All medications have been reviewed Active Medications Acetaminophen (Acetaminophen Tab 325 Mg Tab) 650 mg PO Q6HR PRN PRN Reason: Mild Pain or Fever > 100.5 Albuterol/Ipratropium (Ipratropium-Albuterol 3 Ml Neb) 3 ml INHALATION RT-TID [facility] Last Admin: 08/12/21 07:16 Dose: 3 ml Ascorbic Acid (Ascorbic Acid 500 Mg Tab) 500 mg PO DAILY@1700 [facility] Bisacodyl (Bisacodyl 10 Mg Supp) 10 mg RECTAL DAILY PRN PRN Reason: Constipation Calcium Carbonate (Calcium Carb-Vit D 500 Mg-5 Mcg Tab) 1 each PO DAILY@1700 [facility] Calcium Carbonate/Glycine (Calcium Carbonate 500 Mg Chewable) 500 mg PO D AILY@1700 [facility] Cholecalciferol (Cholecalciferol 25 Mcg (1000 Iu) Tablet) 100 mcg PO DAILY@1200 [facility] Cyanocobalamin (Cyanocobalamin 500 Mcg Tab) 500 mcg PO DAILY@1700 [facility] Docusate Sodium (Docusate 100 Mg Cap) 100 mg PO DAILY@1000 [facility] Last Admin: 08/12/21 10:14 Dose: Not Given Escitalopram Oxalate (Escitalopram 20 Mg Tab) 20 mg PO DAILY@1000 [facility] Last Admin: 08/12/21 10:06 Dose: 20 mg Ferrous Sulfate (Ferrous Sulfate 325 Mg Tab) 325 mg PO BID@1000,1700 [facility] Last Admin: 08/12/21 10:06 Dose: 325 mg Folic Acid (Folic Acid 1 Mg Tab) 0.5 mg PO DAILY@1000 [facility] Last Admin: 08/12/21 10:09 Dose: 0.5 mg Furosemide (Furosemide 10 Mg/Ml 4 Ml Vial) 40 mg IV Q8HR [facility] Last Admin: 08/12/21 10:07 Dose: 40 mg Glipizide (Glipizide 2.5 Mg Tab) 2.5 mg PO DAILY@1000 [facility] Guaifenesin (Guaifenesin Syrup 100mg/5ml 200 Mg/10 Ml Cup) 100 mg PO Q4H PRN PRN Reason: Cough Heparin Sodium (Porcine) (Heparin Sodium 1,000 Un/Ml (10ml Vl)) 0 unit IV PER PROTOCOL PRN; Protocol PRN Reason: Low PTT Heparin Sodium/Sodium Chloride (25,000 unit/ Sodium Chloride) 250 mls @ 10 mls/hr IV .Q24H [facility]; Protocol Amiodarone HCl 360 mg/ (Dextrose/Water) 200 mls @ 33.333 mls/hr IV .Q6H ONE; Protocol Stop: 08/12/21 14:59 Amiodarone HCl 450 mg/ (Dextrose/Water) 250 mls @ 16.667 mls/hr IV .Q15H [facility]; Protocol Stop: 08/13/21 08:59 Insulin Aspart (Insulin Aspart (Novolog) 100 Unit/Ml Vial) 0 unit SQ ACHS [facility]; Protocol Last Admin: 08/12/21 10:12 Dose: Not Given Lactobacillus Acidoph/Bulgaricus (Lactobacillus Acidoph & Bulgar 1 Each Packet) 1 each PO DAILY@1200 [facility] Levothyroxine Sodium (Levothyroxine 88 Mcg Tab) 88 mcg PO DAILY@1000 [facility] Last Admin: 08/12/21 10:06 Dose: 88 mcg Lidocaine (Lidocaine 5% Ointment 50 Gm Jar) 1 applic TOPICAL HS PRN PRN Reason: WOUND PAIN Linagliptin (Linagliptin 5 Mg Tablet) 5 mg PO DAILY@1700 [facility] Lorazepam (Lorazepam 1 Mg Tab) 1 mg PO Q4H PRN PRN Reason: Anxiety Lorazepam (Lorazepam 1 Mg Tab) 1 mg PO BID@1000,1700 [facility] Last Admin: 08/12/21 10:09 Dose: 1 mg Magnesium Hydroxide (Magnesium Hydroxide 2,400 Mg/10 Ml Cup) 2,400 mg PO Q48H PRN PRN Reason: Constipation Medroxyprogesterone Acetate (Medroxyprogesterone 10 Mg Tablet) 10 mg PO DAILY@1000 [facility] Methyl Salicylate (Methyl Salicylate-Menthol Oint (3 Oz Tube)) 1 applic TOPICAL DAILY PRN PRN Reason: pain Metoprolol Tartrate (Metoprolol Tartrate 25 Mg Tab) 25 mg PO BID@1000,2300 [facility] Miscellaneous Information (Warfarin Per Pharmacy) 1 each MISCELLANE DIRECTED PRN; Protocol PRN Reason: Per Protocol Multivitamins (Multivitamins, Thera 1 Each Tab) 1 each PO DAILY@1700 [facility] Naloxone HCl (Naloxone 0.4 Mg/Ml 1 Ml Vial) 0.2 mg IV Q2M PRN PRN Reason: Opioid Reversal Pantoprazole Sodium (Pantoprazole 40 Mg Tablet) 40 mg PO HS@2200 [facility] Last Admin: 08/11/21 23:49 Dose: 40 mg Quetiapine Fumarate (Quetiapine 50 Mg Tab) 50 mg PO DAILY@1200 [facility] Quetiapine Fumarate (Quetiapine 100 Mg Tab) 300 mg PO HS@2300 [facility] Last Admin: 08/11/21 23:50 Dose: 300 mg Simethicone (Simethicone 80 Mg Chewable) 80 mg PO PC-TID PRN PRN Reason: UPPERGASTRIC DISTRESS PHYSICAL EXAMINATION: GENERAL: The patient is alert and oriented x4, morbidly obese Well developed, well nourished. HEENT: Pupils are round and equally reacting to light. EOMI. no scleral icterus. No conjunctival pallor. Normocephalic, atraumatic. No pharyngeal erythema. No thyromegaly. CARDIOVASCULAR: S1 and S2 muffled PULMONARY: diminished breath sounds bilaterally with some crackles and scattered rhonchi noted. ABDOMEN: soft. Nontender on exam. obese. non-distended, normoactive bowel sounds. No palpable organomegaly. MUSCULOSKELETAL: No joint swelling or deformity. EXTREMITIES: No cyanosis, clubbing, or pedal edema. Generalized edema noted throughout NEUROLOGICAL: Gross neurological examination did not reveal any focal deficits. Diffuse weakness SKIN: No rashes. Assessment: Atrial fibrillation with RVR new onset Congestive heart failure, acute exacerbation with preserved EF Morbid obesity with a BMI of 73.5 COPD, acute exacerbation Diabetes mellitus, type 2 History of PE HIstory of esbl, MRSA Left hip wound GI prophylaxis DVT prophylaxis Full code Plan: Recommend to continue with current medications and management with cardiology following. Infectious disease was consulted for left hip wound and appreciate input and recommendations. Pulmonary also following and will continue on jude athing inhalational treatments and patient is also continued on IV Lasix. Patient was initiated on Cardizem although being transitioned IV amiodarone along with IV heparin with transitioning to Coumadin. 2-D echo ordered and pending at this time. [employer] is down and unable to retrieve reports at this time. Will follow up and recommend repeat labs and close monitoring. Recommend continue with telemetry monitoring and currently on hold in the ER awaiting a bed availability on [facility] unit. Due to multiple complex medical issues, prognosis is guarded. The impression and plan of care has been dictated by Shefali Becerra, nurse practitioner as directed. MD Cecelia I have performed a history and examination and MDM of this patient, discussed the same with the dictator, and agree with the dictator's assessment and plan as written ,documented as a scribe. Based on total visit time, I have performed more than 50% of the visit. Any additional findings or plans will be noted. Objective - Vital Signs Vital signs: Vital Signs Temp 98 F 08/11/21 14:35 Pulse 112 H 08/12/21 07:33 Resp 18 08/12/21 04:00 BP 109/71 08/12/21 04:00 Pulse Ox 90 L 08/12/21 07:16 FiO2 40 08/11/21 14:53 Intake & Output 08/11/21 08/12/21 08/12/21 18:59 06:59 18:59 Intake Total 2.75 Output Total 10 Balance 2.75 -10 Weight 194.138 kg Intake: Intake, IV Titration 2.75 Amount Diltiazem 125 mg In 2.75 Sodium Chloride 0.9% 100 ml @ 5 MG/HR 5 mls/hr IV .Q24H [facility] Rx#:[id number] Output: Urine 10 Uretheral (Claros) 10 - Labs CBC & Chem 7: 08/12/21 07:45 08/11/21 15:28 Labs: Abnormal Lab Results - Last 24 Hours (Table) 08/11/21 08/11/21 08/11/21 Range/Units 14:53 14:53 15:28 Hgb (11.4-16.0) gm/dL MCHC 30.1 L (31.0-37.0) g/dL RDW 15.7 H (11.5-15.5) % PT 15.3 H (9.0-12.0) sec INR 1.5 H (<1.2) APTT 32.7 H (22.0-30.0) sec D-Dimer (<0.60) mg/L FEU Sodium 136 L (137-145) mmol/L Chloride 87 L (98-107) mmol/L Carbon Dioxide 42 H* (22-30) mmol/L BUN 20 H (7-17) mg/dL Glucose 148 H (74-99) mg/dL POC Glucose (mg/dL) (75-99) mg/dL Albumin 3.3 L (3.5-5.0) g/dL 08/11/21 08/11/21 08/12/21 Range/Units 18:18 22:28 07:45 Hgb (11.4-16.0) gm/dL MCHC (31.0-37.0) g/dL RDW (11.5-15.5) % PT 13.6 H (9.0-12.0) sec INR 1.3 H (<1.2) APTT (22.0-30.0) sec D-Dimer (<0.60) mg/L FEU Sodium (137-145) mmol/L Chloride (98-107) mmol/L Carbon Dioxide (22-30) mmol/L BUN (7-17) mg/dL Glucose (74-99) mg/dL POC Glucose (mg/dL) 159 H 149 H (75-99) mg/dL Albumin (3.5-5.0) g/dL 08/12/21 08/12/21 Range/Units 07:45 08:25 Hgb 11.3 L (11.4-16.0) gm/dL MCHC 30.2 L (31.0-37.0) g/dL RDW 16.1 H (11.5-15.5) % PT (9.0-12.0) sec INR (<1.2) APTT 38.4 H (22.0-30.0) sec D-Dimer 1.58 H (<0.60) mg/L FEU Sodium (137-145) mmol/L Chloride (98-107) mmol/L Carbon Dioxide (22-30) mmol/L BUN (7-17) mg/dL Glucose (74-99) mg/dL POC Glucose (mg/dL) (75-99) mg/dL Albumin (3.5-5.0) g/dL
[2021-08-13 04:25] LABS: Basophils % (A) 0 %; Eosinophils % (A) 0 %; HCT 37.2 % (34.0-46.0); HGB 10.9 gm/dL (11.4-16.0); Hypochromasia Marked; Lymphocytes # (A) 1.3 k/uL (1.0-4.8); Lymphocytes % (A) 10 %; MCH 28.7 pg (25.0-35.0); MCHC 29.2 g/dL (31.0-37.0); Macrocytosis Slight; Monocytes # (A) 0.8 k/uL (0-1.0); Monocytes % (A) 6 %; Neutrophils # (A) 11.1 k/uL (1.3-7.7); Neutrophils % (A) 82 %; Platelet Count 404 k/uL (150-450); RBC 3.79 m/uL (3.80-5.40); RDW 15.9 % (11.5-15.5); WBC 13.5 k/uL (3.8-10.6)
[2021-08-13 04:33] LABS: Calcium 9.1 mg/dL (8.4-10.2); Potassium 4.4 mmol/L (3.5-5.1)
[2021-08-13 04:52] LABS: INR 1.5 (<1.2); Partial Thromboplastin Time 48.8 sec (22.0-30.0); Prothrombin Time 15.4 sec (9.0-12.0)
[2021-08-13 05:18] LABS: Glucose,Whole Blood 182 mg/dL (75-99)
[2021-08-13] MEDS: INSULIN ASPART (NovoLOG) 100 UNIT/ML VIAL SQ SCH ×4 (05:19→22:22)
[2021-08-13] MEDS: HEPARIN SOD,PORK IN 0.45% NACL 25,000 UNIT in 0.45% NACL 1 250ML.BAG IV SCH (06:03)
[2021-08-13] MEDS: AMIODARONE 450 MG in DEXTROSE 5% IN WATER 250 ML IV SCH ×2 (06:05)
[2021-08-13] MEDS: IPRATROPIUM-ALBUTEROL 3 ML NEB INHALATION SCH ×3 (07:24→20:39)
--- NOTE | 2021-08-13 07:52 | CA ---
Transthoracic Echo Report Name: Leonela Shea Age: 65 Gender: F : 1955 Exam Date: 08/12/2021 07:59 Exam Location: [place] [facility] Ht (in): 64 Wt (lb): 428 Ordering Physician: Bassem Solomon MD Attending/Referring Phys: [id number], [employer] Sales Representative Luna Márquez RDCS Procedure CPT: Indications: chf Cardiac Hx: Technical Quality: Technically difficult study Contrast 1: Total Dose (mL): Contrast 2: Total Dose (mL): MEASUREMENTS (Male / Female) Normal Values 2D ECHO LV Diastolic Diameter PLAX 3.0 cm 4.2 - 5.9 / 3.9 - 5.3 cm LV Systolic Diameter PLAX 2.2 cm IVS Diastolic Thickness 1.9 cm 0.6 - 1.0 / 0.6 - 0.9 cm LVPW Diastolic Thickness 1.6 cm 0.6 - 1.0 / 0.6 - 0.9 cm LV Relative Wall Thickness 1.2 RV Internal Dim ED PLAX 4.1 cm M-MODE Aortic Root Diameter MM 2.8 cm LA Systolic Diameter MM 4.7 cm LA Ao Ratio MM 1.7 DOPPLER AV Peak Velocity 130.4 cm/s AV Peak Gradient 6.8 mmHg LVOT Peak Velocity 84.4 cm/s LVOT Peak Gradient 2.9 mmHg TR Peak Velocity 203.7 cm/s TR Peak Gradient 16.6 mmHg Right Ventricular Systolic Press 21.6 mmHg FINDINGS Left Ventricle Moderately increased left ventricular wall thickness. Left ventricular ejection fraction is estimated at 40-45 %. Right Ventricle Severe right ventricular dilatation. Right Atrium Right atrium not well visualized. Left Atrium Moderate left atrial dilatation. Mitral Valve No mitral stenosis, regurgitation or prolapse. Mitral valve not well visualized. Aortic Valve Aortic valve not well visualized. No aortic valve stenosis or regurgitation. Tricuspid Valve Tricuspid valve not well visualized. Mild tricuspid regurgitation. Pulmonic Valve Pulmonic valve not well visualized. Pericardium Moderate pericardial effusion. Aorta Aortic root and proximal ascending aorta not well visualized. CONCLUSIONS Technically very difficult study for interpretation The ejection fraction is probably around 40-45% Moderate circumferential pericardial effusion Poorly visualized intracardiac valves Previewed by: Dr. Pacheco Renee MD (Electronically Signed) Final Date: 13 Aug 2021 07:51
[2021-08-13] MEDS: FERROUS SULFATE 325 MG TAB PO SCH ×2 (09:59→18:16)
[2021-08-13] MEDS: FOLIC ACID 1 MG TAB PO SCH (09:59)
[2021-08-13] MEDS: DOCUSATE 100 MG CAP PO SCH (10:00)
[2021-08-13] MEDS: FUROSEMIDE 10 MG/ML 4 ML VIAL IV SCH ×2 (10:00→18:16)
[2021-08-13] MEDS: LEVOTHYROXINE 88 MCG TAB PO SCH (10:00)
[2021-08-13] MEDS: ESCITALOPRAM 20 MG TAB PO SCH (10:00)
[2021-08-13] MEDS: medroxyPROGESTERone 10 MG TABLET PO SCH (10:00)
[2021-08-13] MEDS: AMIODARONE 200 MG TAB PO SCH ×2 (10:00→22:22)
[2021-08-13] MEDS: METOPROLOL TARTRATE 25 MG TAB PO SCH ×3 (10:00→22:22)
--- NOTE | 2021-08-13 10:48 | P.PN ---
Subjective Progress Note Date: 08/13/21 HISTORY OF PRESENT ILLNESS: This is a 65-year-old female with a past medical history significant for COPD, hypertension, hypothyroidism, and PE/DVT on Coumadin. Patient was last seen in the office in [address] Carlos. We have been asked to see the patient in consultation for A. fib with RVR. Patient examined at the bedside. The patient apparently was brought to the hospital from [facility] secondary to hypoxia. The patient states when they checked her oxygen saturations on her finger she was found to be 75%. She does report feeling short of breath. She denies any chest pain. She reports some swelling in her lower extremities and states that her leg feels like it is asleep and is requesting to be repositioned in bed. The patient was found to be in A. fib with RVR. The patient denies any history of atrial fibrillation. The patient was started on a Cardizem drip at 10 mg an hour. She remains in atrial fibrillation this morning with a heart rate in the 120s. * EKG reveals A. fib with RVR * Chest xray medical correlation recommended for congestive heart failure * Laboratory data: WBC 10.0. Hemoglobin 11.5. Platelet count 372. Sodium 136. Potassium 3.9. BUN 20. Creatinine 0.52. Troponin negative 1 * Current home cardiac medications include warfarin 5 mg Monday and 2.5 mg Monday, metoprolol tartrate 12.5 mg twice a day, Lasix 40 mg the morning and 20 mg in the afternoon * Most recent echocardiogram obtained in 2018 revealing ejection fraction 60- 65%, mild tricuspid regurgitation 08/13/2021 Patient examined this morning at the bedside. Patient denies chest pain or pressure. She reports mild shortness of breath. She remains on IV Lasix 40 mg every 8 hours. She remains on IV amiodarone. Patient is receiving Coumadin. She is also on IV heparin until INR is therapeutic. INR this morning is currently pending. Echocardiogram completed revealing ejection fraction 40-45%, severe right ventricular dilatation, mild tricuspid regurgitation, and moderate pericardial effusion. Patient was found to have an elevated d-dimer yesterday 1.58. CTA chest was ordered. Per nursing, this was cancelled as patient was unable to fit in CT machine due to body habitus. PHYSICAL EXAM: VITAL SIGNS: Reviewed. GENERAL: Well-developed in no acute distress. HEENT: Head is normocephalic. Pupils are equal, round. Sclerae anicteric. Mucous membranes of the mouth are moist. Neck supple. No JVD or thyromegaly LUNGS: Respirations even and unlabored. Lungs diminished to auscultation bilaterally. HEART: Tachycardic. Irregular rate and rhythm. S1 and S2 heard. ABDOMEN: Soft. Nondistended. Nontender. EXTREMITIES: Normal range of motion. No clubbing or cyanosis. Peripheral pulses intact. Bilateral lower extremity edema present NEUROLOGIC: Awake and alert. Oriented x 3. ASSESSMENT: New onset A. fib with RVR Acute hypoxic respiratory failure Acute on chronic heart failure with preserved ejection fraction COPD Hypertension Hypothyroidism History of PE/DVT on Coumadin Diabetes Moderate pericardial effusion Elevated d-dimer, unable to have CTA due to body habitus PLAN: Continue telemetry monitoring Discontinue IV amio Begin oral amio 400mg BID Increase metoprolol to 25mg TID Continue Coumadin. Monitor INR Continue IV heparin until Coumadin is therapeutic with an INR of 2.0 or greater D-Dimer elevated. Patient unable to fit in CT machine due to body habitus. Await further recommendations from pulmonary regarding abnormal d-dimer. Continue IV Lasix Monitor kidney function Daily weights Accurate I&O Further recommendations pending patient's course Nurse practitioner note has been reviewed by physician. Signing provider agrees with the documented findings, assessment, and plan of care. Objective - Vital Signs Vital signs: Vital Signs Temp 97.6 F 08/13/21 04:00 Pulse 120 H 08/13/21 04:00 Resp 18 08/13/21 04:00 BP 117/77 08/13/21 04:00 Pulse Ox 95 08/13/21 04:00 FiO2 40 08/11/21 14:53 Intake & Output 08/12/21 08/13/21 08/13/21 18:59 06:59 18:59 Intake Total 330.616 0 Output Total 150 Balance 180.616 0 Intake: Intake, IV Titration 330.616 Amount Amiodarone 450 mg In 155.559 Dextrose 5% in Water 250 ml @ 0.5 MG/MIN 16.667 mls/hr IV .Q15H [facility] Rx#: [id number] Heparin Sod,Pork in 0.45% 175.057 NaCl 25,000 unit In 0.45 % NaCl 1 250ml.bag @ 5. 151 UNITS/KG/HR 10 mls/hr IV .Q24H [facility] Rx#: [id number] Oral 0 0 Output: Urine 150 Other: Voiding Method Indwelling Catheter - Labs CBC & Chem 7: 08/13/21 03:40 08/13/21 03:40 Labs: Abnormal Lab Results - Last 24 Hours (Table) 08/12/21 08/12/21 08/13/21 Range/Units 19:35 19:37 03:40 WBC 13.5 H (3.8-10.6) k/uL RBC 3.79 L (3.80-5.40) m/uL Hgb 10.9 L (11.4-16.0) gm/dL MCHC 29.2 L (31.0-37.0) g/dL RDW 15.9 H (11.5-15.5) % Neutrophils # 11.1 H (1.3-7.7) k/uL PT (9.0-12.0) sec INR (<1.2) APTT 35.6 H (22.0-30.0) sec Sodium (137-145) mmol/L Chloride (98-107) mmol/L Carbon Dioxide (22-30) mmol/L BUN (7-17) mg/dL Glucose (74-99) mg/dL POC Glucose (mg/dL) 168 H (75-99) mg/dL 08/13/21 08/13/21 08/13/21 Range/Units 03:40 03:40 05:17 WBC (3.8-10.6) k/uL RBC (3.80-5.40) m/uL Hgb (11.4-16.0) gm/dL MCHC (31.0-37.0) g/dL RDW (11.5-15.5) % Neutrophils # (1.3-7.7) k/uL PT 15.4 H (9.0-12.0) sec INR 1.5 H (<1.2) APTT 48.8 H (22.0-30.0) sec Sodium 132 L (137-145) mmol/L Chloride 84 L (98-107) mmol/L Carbon Dioxide 40 H (22-30) mmol/L BUN 29 H (7-17) mg/dL Glucose 167 H (74-99) mg/dL POC Glucose (mg/dL) 182 H (75-99) mg/dL
[2021-08-13] MEDS: LORazepam 1 MG TAB PO SCH ×2 (11:32→18:15)
[2021-08-13 12:16] LABS: Glucose,Whole Blood 149 mg/dL (75-99)
[2021-08-13 12:21] LABS: INR 1.6 (<1.2); Prothrombin Time 15.9 sec (9.0-12.0)
--- NOTE | 2021-08-13 12:53 | P.PN ---
Subjective Progress Note Date: 08/13/21 Morbidly obese 65-year-old female patient with chronic hypoxic and hypercapnic respiratory failure and a body mass index of 73 with chronic diastolic heart failure and chronic lower extremity edema in addition to multiple medical problems and comorbidities. The patient is known to have history of diabetes mellitus, hypertension, remote history of pulmonary embolism, hypothyroidism and the patient has been essentially sedentary and bedbound, nonambulatory for many years, a long term resident. The patient comes into the hospital because of worsening shortness of breath and increased lower extremity edema. Things have progressed over the past few weeks. No chest pain. No altered mentation. No angina. She is bedbound. As the patient was being transported, she was also found to be in atrial fibrillation with RVR and this is of a new onset. She is on long-term medical condition with warfarin and her PT/INR is subtherapeutic and the patient is currently on IV heparin. The patient was also started on Cardizem drip at 10 mg an hour and amiodarone drip per protocol currently at 1 mg per minute. Heart rate is under better control for now. She is also on diuretics 40 mg of IV Lasix every 8 hours. 08/13/2021, clinically the same as yesterday. She was taken off the Cardizem drip and the patient is currently switched to oral amiodarone and the cardiac rhythm is still atrial fibrillation. Under better rate control. The patient remains on IV heparin and a PT INR is still subtherapeutic with an INR of 1.6. The patient remains on Lasix 40 mg IV every 8 hours. Urine output is quite low despite her extensive edema and the patient has a dark urine output with a active sediments. UA has not been checked today. BUN is 29 with a creatinine of 0.87. Sodium is at 132 with a potassium level of 4.4. INR is at 1.6. He will was 13.5 with a hemoglobin of 10.9. Objective - Vital Signs Vital signs: Vital Signs Temp 98.0 F 08/13/21 08:00 Pulse 115 H 08/13/21 08:00 Resp 18 08/13/21 08:00 BP 107/73 08/13/21 08:00 Pulse Ox 97 08/13/21 08:00 FiO2 40 08/11/21 14:53 Intake & Output 05/08/13/21 08/13/21 18:59 06:59 18:59 Intake Total 330.616 0 Output Total 150 Balance 180.616 0 Intake: Intake, IV Titration 330.616 Amount Amiodarone 450 mg In 155.559 Dextrose 5% in Water 250 ml @ 0.5 MG/MIN 16.667 mls/hr IV .Q15H [facility] Rx#: [id number] Heparin Sod,Pork in 0.45% 175.057 NaCl 25,000 unit In 0.45 % NaCl 1 250ml.bag @ 5. 151 UNITS/KG/HR 10 mls/hr IV .Q24H [facility] Rx#: [id number] Oral 0 0 Output: Urine 150 Other: Voiding Method Indwelling Catheter - Exam Skin: Good color, texture, turgor. Morbidly obese, calm and comfortable, body mass index of 73, 3 LO2 nasal cannula General: Morbidly obese build and comfortable appearance. Head: Normocephalic, atraumatic. Eyes: Symmetric. Pupils equal round. Ears: Symmetric. Hearing within normal limits. Mouth: Clear. Neck: Supple. Carotid without bruit. Mallampati class IV. Cardiac: Irregular consistent with atrial fibrillation . Cardiac exam revealed the PMI to be normally situated and sized. No significant murmurs appreciated Lungs: Clear anteriorly and posteriorly. The breath sounds markedly diminished in the mid and lower lung his bilaterally. No wheezes. No rhonchi. Crackles are present in the lung bases bilaterally Abdomen: Soft active nontender obese. Extremities: Normal tone. There is significant swelling in lower extremities bilaterally and obvious arthritic changes in the knees bilaterally. There is an area of bruise over the left knee area where the fall and impact occurred. Neurological: Mental status: Alert, cooperative, pleasant. Cranial nerves: Symmetric facial tone and trapezius. Motor: Able to elevate both arms. Active movement at ankles but unable to elevate legs. Sensation: Intact throughout. DTRs: Symmetric and equal throughout. Mobility: Unable to sit or stand at due to knee pain and long-standing disc mo bility. - Labs CBC & Chem 7: 08/13/21 03:40 08/13/21 03:40 Labs: Abnormal Lab Results - Last 24 Hours (Table) 08/12/21 08/12/21 08/13/21 Range/Units 19:35 19:37 03:40 WBC 13.5 H (3.8-10.6) k/uL RBC 3.79 L (3.80-5.40) m/uL Hgb 10.9 L (11.4-16.0) gm/dL MCHC 29.2 L (31.0-37.0) g/dL RDW 15.9 H (11.5-15.5) % Neutrophils # 11.1 H (1.3-7.7) k/uL PT (9.0-12.0) sec INR (<1.2) APTT 35.6 H (22.0-30.0) sec Sodium (137-145) mmol/L Chloride (98-107) mmol/L Carbon Dioxide (22-30) mmol/L BUN (7-17) mg/dL Glucose (74-99) mg/dL POC Glucose (mg/dL) 168 H (75-99) mg/dL 08/13/21 08/13/21 08/13/21 Range/Units 03:40 03:40 05:17 WBC (3.8-10.6) k/uL RBC (3.80-5.40) m/uL Hgb (11.4-16.0) gm/dL MCHC (31.0-37.0) g/dL RDW (11.5-15.5) % Neutrophils # (1.3-7.7) k/uL PT 15.4 H (9.0-12.0) sec INR 1.5 H (<1.2) APTT 48.8 H (22.0-30.0) sec Sodium 132 L (137-145) mmol/L Chloride 84 L (98-107) mmol/L Carbon Dioxide 40 H (22-30) mmol/L BUN 29 H (7-17) mg/dL Glucose 167 H (74-99) mg/dL POC Glucose (mg/dL) 182 H (75-99) mg/dL 08/13/21 08/13/21 Range/Units 10:55 12:14 WBC (3.8-10.6) k/uL RBC (3.80-5.40) m/uL Hgb (11.4-16.0) gm/dL MCHC (31.0-37.0) g/dL RDW (11.5-15.5) % Neutrophils # (1.3-7.7) k/uL PT 15.9 H (9.0-12.0) sec INR 1.6 H (<1.2) APTT (22.0-30.0) sec Sodium (137-145) mmol/L Chloride (98-107) mmol/L Carbon Dioxide (22-30) mmol/L BUN (7-17) mg/dL Glucose (74-99) mg/dL POC Glucose (mg/dL) 149 H (75-99) mg/dL Assessment and Plan Plan: Acute shortness of breath, on top of chronic chronic, with acute worsening secondary to CHF and fluid overload. The chest x-ray is consistent with CHF, cardiomegaly and pulmonary edema and the patient has significant volume overload and increased lower extremity edema consistent with decompensated CHF. CHF probably a combination of biventricular diastolic heart failure with acute decompensation significant volume overload New-onset atrial fibrillation with a better rate control and the patient is currently on amiodarone 400 mg by mouth twice a day and IV amiodarone has been completed in terms of loading and the patient is also off Cardizem drip and the patient is also on Lopressor 25 mg 3 times a day for rate control. She is adequately coagulated IV heparin and Coumadin dose being adjusted accordingly. Chronic hypoxic respiratory failure, still on 2 L of oxygen by nasal cannula Morbid obesity with a BMI of 73.5 Chronic hypoxic and hypercapnic respiratory failure with a component of obesity hypoventilation syndrome Hypertension Previous history of pulmonary embolism maintained on long-term and to coagul ation with warfarin, PT/INR is subtherapeutic Hypothyroidism, normal TSH, Chronic lower extremity edema Diabetes mellitus skilled nursing resident Plan Optimize CHF. The patient will be started on diuretics with Lasix 40 g IV every 8 hours I am a bit this discouraged about low urine output. We'll do a bladder scan to monitored urine output. Flush the Claros catheter make sure the patient producing adequate urine output for now. If not, she will need further investigation including a nephrology consultation. Urine output is low at this point in time. Discontinue the Cardizem Oral amiodarone Continue IV heparin until the patient's PT/INR is therapeutic while on Coumadin Monitor fluid balance Monitor renal function and electrolytes Strict input output Fluid restriction Echo has shown a moderate LV function impairment with an ejection fraction of 40-45% and there is a moderate pericardial effusion without any signs of tamponade. Noted the patient has history of hypothyroidism and her TSH has been also within normal at 4.5.. Hypothyroid Long-term prognosis poor baseline above-mentioned comorbidities. We'll continue to follow. respiratory
[2021-08-13] MEDS: QUEtiapine 50 MG TAB PO SCH (14:06)
[2021-08-13] MEDS: LACTOBACILLUS ACIDOPH & BULGAR 1 EACH PACKET PO SCH (14:06)
[2021-08-13] MEDS: CHOLECALCIFEROL 25 MCG (1000 IU) TABLET PO SCH (14:06)
--- NOTE | 2021-08-13 16:10 | P.CONS ---
History of Present Illness - Reason for Consult Consult date: 08/12/21 Left hip wound Requesting physician: Omar Flynn - Chief Complaint Shortness of breath x 1 day - History of Present Illness Patient is a 65-year-old female with a past medical he significant for COPD was brought into the ER yesterday afternoon by EMS for evaluation of hypoxemia and this patient has been complaining of increasing shortness of breath over the last 1 week patient denies having any chest pain patient did have mild cough when off but not bringing up any sputum patient denies having any nausea no vomiting no abdominal pain no diarrhea patient was noticed to have significant excoriation in the bilateral groin area and also have a wound to the left lateral thigh area with some clear drainage patient be complaining of some dull aching pain to the left thigh to 3 out of 10 and no radiation, patient on presentation to the hospital was afebrile no fever has recorded subsequently patient did have normal white count patient did have a chest x-ray correlate for congestive heart failure infectious disease was consulted for the left thigh wound and groin area wound concerning for cutaneous candidiasis Review of Systems Positive point has been mentioned in the HPI rest of the systems are negative Past Medical History Past Medical History: COPD, Diabetes Mellitus, Hypertension, Osteoarthritis (OA), Pulmonary Embolus (PE), Skin Disorder, Thyroid Disorder Additional Past Medical History / Comment(s): Morbid obesity, Diabetes mellitus, hypertension, previous history of pulmonary embolism/DVT, osteoarthritis, hypothyroidism, eczema, osteoarthritis of the lower extremities including knees and ankles and the patient has received steroid shots, chronic allergic rhinitis, vertigo, congestive heart failure, COPD, lymphedema, anemia, diabetic neuropathy, History of Any Multi-Drug Resistant Organisms: ESBL, MRSA Year Discovered:: 04/27/20 ESBL 06/10/19 MRSA MDRO Source:: ESBL URINE MRSA ABDOMEN Past Surgical History: Breast Surgery, Cholecystectomy, Orthopedic Surgery Additional Past Surgical History / Comment(s): LT WRIST GANGLION CYST. 3 BREAST SURGERIES - BENIGN. RTR. SINUS SURGERY. D&C 07/2014. Past Anesthesia/Blood Transfusion Reactions: Motion Sickness Additional Past Anesthesia/Blood Transfusion Reaction / Comm: Claustrophobia Past Psychological History: Bipolar, Depression Smoking Status: Never smoker Past Alcohol Use History: None Reported Past Drug Use History: None Reported - Past Family History Mother Family Medical History: Unable to Obtain Father Family Medical History: Unable to Obtain Medications and Allergies Home Medications Medication Instructions Recorded Confirmed Type Escitalopram [Lexapro] 20 mg PO DAILY@1000 07/31/14 08/11/21 History Levothyroxine Sodium [Synthroid] 88 mcg PO DAILY@99907/31/14 08/11/21 History QUEtiapine FUMARATE [SEROquel] 300 mg PO HS@2300 07/31/14 08/11/21 History Linagliptin [Tradjenta] 5 mg PO DAILY@17011/30/15 08/11/21 History fluocinolone acetonide oiL 5 drops BOTH EARS BID PRN 04/16/16 08/11/21 History [fluocinolone acetonide oiL 0.01% (Otic)] Acetaminophen Tab [Tylenol] 500 mg PO Q6H PRN 11/13/19 08/11/21 History Ascorbic Acid [Vitamin C] 500 mg PO DAILY@169911/13/19 08/11/21 History Calcium Carb-Vit D 500Mg-5Mcg 1 tab PO DAILY@17011/13/19 08/11/21 History [Oscal 500+D 5 Mcg (200 Iu)] Docusate [Colace] 100 mg PO DAILY@99911/13/19 08/11/21 History Ferrous Sulfate [Iron (65 MG 325 mg PO BID@1000,169911/13/19 08/11/21 History Elemental)] Lidocaine 5% Oint [Xylocaine 5% 1 applic TOPICAL HS PRN 11/13/19 08/11/21 History Oint] Magnesium Hydroxide [Milk of 7,200 mg PO Q48H PRN 11/13/19 08/11/21 History Magnesia Concentrate] Medroxyprogesterone Acetate 10 mg PO DAILY@1000 11/13/19 08/11/21 History [Provera] Menthol [Biofreeze] 1 applic TOPICAL DAILY PRN 11/13/19 08/11/21 History QUEtiapine [SEROquel] 50 mg PO DAILY@1200 11/13/19 08/11/21 History Simethicone [Simethicone Chew] 80 mg PO PC-TID PRN 11/13/19 08/11/21 History Warfarin [Coumadin] 2.5 mg PO SUTUTHSA@17011/13/19 08/11/21 History Warfarin [Coumadin] 5 mg PO MOWEFR@1700 11/13/19 08/11/21 History bisacodyL 10 mg RECTAL DAILY PRN 11/13/19 08/11/21 History guaiFENesin [guaiFENesin Oral 100 mg PO Q4H PRN 11/13/19 08/11/21 History Solution] LORazepam [Ativan] 1 mg PO BID@1000,1700 #6 tab 11/18/19 08/11/21 Rx Cholecalciferol [Vitamin D3 (25 100 mcg PO DAILY@1200 08/25/20 08/11/21 History Mcg = 1000 Iu)] Folic Acid 0.4 mg PO DAILY@1000 08/25/20 08/11/21 History Furosemide [Lasix] 20 mg PO DAILY@1700 08/25/20 08/11/21 History Lactobacillus Acidophilus 1 cap PO DAILY@1200 08/25/20 08/11/21 History [Acidophilus Probiotic] Acetaminophen [Tylenol] 650 mg PO Q6H PRN 08/11/21 08/11/21 History Artificial Tears-Hypromellose 2 drops BOTH EYES QID PRN 08/11/21 08/11/21 History [Artificial Tear Drops] Calcium Carbonate [Tums] 500 mg PO DAILY@169908/11/21 08/11/21 History Clotrimazole [Clotrimazole AF] 1 applic TOPICAL MOWEFR 08/11/21 08/11/21 History Cyanocobalamin [Vitamin B-12] 500 mcg PO DAILY@1700 08/11/21 08/11/21 History Furosemide [Lasix] 40 mg PO DAILY@1000 08/11/21 08/11/21 History LORazepam [Ativan] 1 mg PO Q4H PRN 08/11/21 08/11/21 History Metoprolol Tartrate [Lopressor] 12.5 mg PO BID@1000,2300 08/11/21 08/11/21 History Multivitamins, Thera [Multivitamin 1 tab PO DAILY@169908/11/21 08/11/21 History (formulary)] Omeprazole [PriLOSEC] 20 mg PO HS@2200 08/11/21 08/11/21 History Phytonadione [Vitamin K] 5 mg PO ONCE 08/11/21 08/11/21 History Triamcinolone 0.5% Cream [Kenalog 1 applic TOPICAL MOWEFR 08/11/21 08/11/21 History 0.5% Cream] glipiZIDE [Glucotrol] 2.5 mg PO DAILY@1000 08/11/21 08/11/21 History Allergies Allergy/AdvReac Type Severity Reaction Status Date / Time ciprofloxacin [From Cipro] Allergy Severe HIVES Verified 08/11/21 16:05 ciprofloxacin HCl Allergy Severe HIVES Verified 08/11/21 16:05 [From Cipro] clarithromycin [From Biaxin] Allergy Severe HIVES Verified 08/11/21 16:05 codeine Allergy Severe HIVES Verified 08/11/21 16:05 hydrocodone bitartrate Allergy Severe Rash/Hives Verified 08/11/21 16:05 [From Vicodin] alprazolam [From Xanax] Allergy Unknown HIVES Verified 08/11/21 16:05 clindamycin HCl Allergy Unknown HIVES Verified 08/11/21 16:05 [From Cleocin] clindamycin palmitate HCl Allergy Unknown HIVES Verified 08/11/21 16:05 [From Cleocin] clindamycin phosphate Allergy Unknown HIVES Verified 08/11/21 16:05 [From Cleocin] honey Allergy Unknown Anaphylaxis Verified 08/11/21 16:05 metformin Allergy Unknown Anaphylaxis Verified 08/11/21 16:05 doxycycline Allergy Unknown Verified 08/11/21 16:05 duloxetine HCl AdvReac Severe Nausea Verified 08/11/21 16:05 [From Cymbalta] Penicillins AdvReac Severe Abdominal Verified 08/11/21 16:05 Pain Sulfa (Sulfonamide AdvReac Severe HEADACHE Verified 08/11/21 16:05 Antibiotics) buspirone HCl [From BuSpar] AdvReac Unknown Nausea & Verified 08/11/21 16:05 Vomiting cornmeal Allergy Unknown Rash/Hives Uncoded 08/11/21 16:05 Physical Exam Vitals: Vital Signs Temp Pulse Pulse Resp BP BP Pulse Ox 08/12/21 18:24 124 H 20 116/79 95 08/12/21 16:11 98.3 F 123 H 18 106/83 95 08/12/21 16:10 98.3 F 123 H 18 106/83 96 08/12/21 07:33 112 H 05/26/22 07:16 118 H 90 L 08/12/21 04:00 118 H 18 109/71 94 L 08/12/21 01:00 113 H 20 115/56 93 L Intake and Output 08/12/21 08/12/21 08/12/21 06:59 14:59 22:59 Intake Total 47.333 Output Total 10 150 Balance -10 -102.667 Intake: Intake, IV Titration 47.333 Amount Heparin Sod,Pork in 0.45% 47.333 NaCl 25,000 unit In 0.45 % NaCl 1 250ml.bag @ 5. 151 UNITS/KG/HR 10 mls/hr IV .Q24H [facility] Rx#: [id number] Output: Urine 10 150 Uretheral (Claros) 10 GENERAL DESCRIPTION: Elderly female lying in bed, no distress. No tachypnea or accessory muscle of respiration use. HEENT: Shows Pallor , no scleral icterus. Oral mucous membrane is dry. No pharyngeal erythema or thrush NECK: Trachea central, no thyromegaly. LUNGS: Unlabored breathing. decreased breath sound at the base. No wheeze or crackle. HEART: S1, S2, regular rate and rhythm. No loud murmur ABDOMEN: Soft, no tenderness , guarding or rigidity, no organomegaly EXTREMITIES: Diffuse swelling to bilateral lower extremity with some superficial excoriation in the left lateral thigh SKIN: Bilateral groin area cutaneous candidiasis NEUROLOGICAL: The patient is awake, alert, oriented x3, mood and affect normal. Results CBC & Chem 7: 08/13/21 03:40 08/13/21 03:40 Labs: Abnormal Lab Results - Last 24 Hours (Table) 08/11/21 08/12/21 08/12/21 Range/Units 22:28 07:45 07:45 Hgb 11.3 L (11.4-16.0) gm/dL MCHC 30.2 L (31.0-37.0) g/dL RDW 16.1 H (11.5-15.5) % PT 13.6 H (9.0-12.0) sec INR 1.3 H (<1.2) APTT (22.0-30.0) sec D-Dimer (<0.60) mg/L FEU POC Glucose (mg/dL) 149 H (75-99) mg/dL 05/08/12/21 08/12/21 Range/Units 08:25 19:35 19:37 Hgb (11.4-16.0) gm/dL MCHC (31.0-37.0) g/dL RDW (11.5-15.5) % PT (9.0-12.0) sec INR (<1.2) APTT 38.4 H 35.6 H (22.0-30.0) sec D-Dimer 1.58 H (<0.60) mg/L FEU POC Glucose (mg/dL) 168 H (75-99) mg/dL Assessment and Plan (1) Non-healing skin lesion Current Visit: No Status: Acute Code(s): L98.9 - DISORDER OF THE SKIN AND SUBCUTANEOUS TISSUE, UNSPECIFIED SNOMED Code(s): 52891217 Plan: 1patient with left lateral thigh wound with no evidence of any cellulitis and oozing could be related to the fluid overload state recommend local care with the Triad cream applied daily. 2 Patient with bilateral groin area cutaneous candidiasis but no cellulitis we will apply nystatin powder twice a day. 3no evidence of any cellulitis or pneumonia no need for antibiotic therapy. We will follow on clinical condition and cultures to further adjust medication if needed Thank you for this consultation will follow this patient along with you
[2021-08-13] MEDS ORDERED: WARFARIN 5 MG TAB PO SCH (17:00)
[2021-08-13 17:04] LABS: Glucose,Whole Blood 144 mg/dL (75-99)
[2021-08-13] MEDS ORDERED: WARFARIN 5 MG TAB PO ONE (18:00)
[2021-08-13] MEDS: CALCIUM CARBONATE 500 MG CHEWABLE PO SCH (18:15)
[2021-08-13] MEDS: CYANOCOBALAMIN 500 MCG TAB PO SCH (18:15)
[2021-08-13] MEDS: LINAGLIPTIN 5 MG TABLET PO SCH (18:15)
[2021-08-13] MEDS: MULTIVITAMINS, THERA 1 EACH TAB PO SCH (18:15)
[2021-08-13] MEDS: ASCORBIC ACID 500 MG TAB PO SCH (18:15)
[2021-08-13] MEDS: CALCIUM CARB-VIT D 500 MG-5 MCG TAB PO SCH (18:16)
[2021-08-13 21:08] LABS: Glucose,Whole Blood 155 mg/dL (75-99)
[2021-08-13] MEDS: PANTOPRAZOLE 40 MG TABLET PO SCH (22:22)
[2021-08-13] MEDS: NYSTATIN 100,000 UNIT/GM POWD 15 GM TOPICAL SCH (22:22)
[2021-08-13] MEDS: QUEtiapine 100 MG TAB PO SCH (22:24)
[2021-08-14] MEDS: FUROSEMIDE 10 MG/ML 4 ML VIAL IV SCH ×3 (00:46→16:38)
[2021-08-14] MEDS: HEPARIN SOD,PORK IN 0.45% NACL 25,000 UNIT in 0.45% NACL 1 250ML.BAG IV SCH ×2 (00:46→18:14)
--- NOTE | 2021-08-14 04:33 | P.PN ---
Subjective Progress Note Date: 08/13/21 This 65-year-old female was recently admitted with CHF and atrial fibrillation cardio following closely. Patient was maintained on IV Cardizem which is currently being transitioned IV amiodarone along with IV heparin. 2-D echo was ordered and pending at this time. Patient continues on 2 L of oxygen via nasal cannula at 90% oxygen pulse ox and continues to report shortness of breath and generalized weakness. Patient is morbidly obese with a BMI of 73.5 and resides in [facility]. Patient's blood pressure is elevated and will initiate Norvasc 10 mg daily and monitor closely. Infectious disease also consulted for a wound on the left hip along with pulmonary for COPD acute exacerbation. Patient denies any chest pain and patient is afebrile. 08/13/2021 Patient is seen today in follow up and continues to report shortness of breath. Cardiology and pulmonary and ID following. Patient is continued on bronchodilators and also continues on IV lasix. IV heparin continued and being started on coumadin. Transitioned to oral amiodarone and cardiology adjusting medications. Patient denies chest pain and is afebrile. Review of systems: Constitutional: reports of fatigue and weakness, reports of fever, or chills Cardiovascular: No reports of chest pain or palpitations Respiratory: reports of shortness of breath GI: No reports of nausea, no reports of of vomiting : No reports of dysuria or retention Neurovascular: reports of generalized weakness All medications have been reviewed Active Medications Acetaminophen (Acetaminophen Tab 325 Mg Tab) 650 mg PO Q6HR PRN PRN Reason: Mild Pain or Fever > 100.5 Albuterol/Ipratropium (Ipratropium-Albuterol 3 Ml Neb) 3 ml INHALATION RT-TID [facility] Last Admin: 08/13/21 20:39 Dose: Not Given Amiodarone HCl (Amiodarone 200 Mg Tab) 400 mg PO BID [facility] Last Admin: 08/13/21 22:22 Dose: 400 mg Ascorbic Acid (Ascorbic Acid 500 Mg Tab) 500 mg PO DAILY@1700 [facility] Last Admin: 08/13/21 18:15 Dose: 500 mg Bisacodyl (Bisacodyl 10 Mg Supp) 10 mg RECTAL DAILY PRN PRN Reason: Constipation Calcium Carbonate (Calcium Carb-Vit D 500 Mg-5 Mcg Tab) 1 each PO DAILY@1700 [facility] Last Admin: 08/13/21 18:16 Dose: 1 each Calcium Carbonate/Glycine (Calcium Carbonate 500 Mg Chewable) 500 mg PO DAILY@1700 [facility] Last Admin: 08/13/21 18:15 Dose: 500 mg Cholecalciferol (Cholecalciferol 25 Mcg (1000 Iu) Tablet) 100 mcg PO DAILY@1200 [facility] Last Admin: 08/13/21 14:06 Dose: 100 mcg Cyanocobalamin (Cyanocobalamin 500 Mcg Tab) 500 mcg PO DAILY@1700 [facility] Last Admin: 08/13/21 18:15 Dose: 500 mcg Docusate Sodium (Docusate 100 Mg Cap) 100 mg PO DAILY@1000 [facility] Last Admin: 08/13/21 10:00 Dose: 100 mg Escitalopram Oxalate (Escitalopram 20 Mg Tab) 20 mg PO DAILY@1000 [facility] Last Admin: 08/13/21 10:00 Dose: 20 mg Ferrous Sulfate (Ferrous Sulfate 325 Mg Tab) 325 mg PO BID@1000,1700 [facility] Last Admin: 08/13/21 18:16 Dose: 325 mg Folic Acid (Folic Acid 1 Mg Tab) 0.5 mg PO DAILY@1000 [facility] Last Admin: 08/13/21 09:59 Dose: 0.5 mg Furosemide (Furosemide 10 Mg/Ml 4 Ml Vial) 40 mg IV Q8HR [facility] Last Admin: 08/14/21 00:46 Dose: 40 mg Glipizide (Glipizide 2.5 Mg Tab) 2.5 mg PO DAILY@1000 [facility] Last Admin: 08/13/21 09:59 Dose: 2.5 mg Guaifenesin (Guaifenesin Syrup 100mg/5ml 200 Mg/10 Ml Cup) 100 mg PO Q4H PRN PRN Reason: Cough Heparin Sodium (Porcine) (Heparin Sodium 1,000 Un/Ml (10ml Vl)) 0 unit IV PER P ROTOCOL PRN; Protocol PRN Reason: Low PTT Last Admin: 08/12/21 20:47 Dose: 4,850 unit Heparin Sodium/Sodium Chloride (25,000 unit/ Sodium Chloride) 250 mls @ 10 mls/hr IV .Q24H [facility]; Protocol Last Admin: 08/14/21 00:46 Dose: 7.151 units/kg/hr, 13.883 mls/hr Insulin Aspart (Insulin Aspart (Novolog) 100 Unit/Ml Vial) 0 unit SQ ACHS [facility]; Protocol Last Admin: 08/13/21 22:22 Dose: 2 unit Lactobacillus Acidoph/Bulgaricus (Lactobacillus Acidoph & Bulgar 1 Each Packet) 1 each PO DAILY@1200 [facility] Last Admin: 08/13/21 14:06 Dose: 1 each Levothyroxine Sodium (Levothyroxine 88 Mcg Tab) 88 mcg PO DAILY@1000 [facility] Last Admin: 08/13/21 10:00 Dose: 88 mcg Lidocaine (Lidocaine 5% Ointment 50 Gm Jar) 1 applic TOPICAL HS PRN PRN Reason: WOUND PAIN Linagliptin (Linagliptin 5 Mg Tablet) 5 mg PO DAILY@1700 [facility] Last Admin: 08/13/21 18:15 Dose: 5 mg Lorazepam (Lorazepam 1 Mg Tab) 1 mg PO Q4H PRN PRN Reason: Anxiety Lorazepam (Lorazepam 1 Mg Tab) 1 mg PO BID@1000,1700 [facility] Last Admin: 08/13/21 18:15 Dose: 1 mg Magnesium Hydroxide (Magnesium Hydroxide 2,400 Mg/10 Ml Cup) 2,400 mg PO Q48H PRN PRN Reason: Constipation Medroxyprogesterone Acetate (Medroxyprogesterone 10 Mg Tablet) 10 mg PO DAILY@1000 [facility] Last Admin: 08/13/21 10:00 Dose: 10 mg Methyl Salicylate (Methyl Salicylate-Menthol Oint (3 Oz Tube)) 1 applic TOPICAL DAILY PRN PRN Reason: pain Metoprolol Tartrate (Metoprolol Tartrate 25 Mg Tab) 25 mg PO TID [facility] Last Admin: 08/13/21 22:22 Dose: 25 mg Miscellaneous Information (Warfarin Per Pharmacy) 1 each MISCELLANE DIRECTED PRN; Protocol PRN Reason: Per Protocol Multivitamins (Multivitamins, Thera 1 Each Tab) 1 each PO DAILY@1700 [facility] Last Admin: 08/13/21 18:15 Dose: 1 each Naloxone HCl (Naloxone 0.4 Mg/Ml 1 Ml Vial) 0.2 mg IV Q2M PRN PRN Reason: Opioid Reversal Nystatin (Nystatin 100,000 Unit/Gm Powd 15 Gm) 1 applic TOPICAL BID [facility]; Protocol Last Admin: 08/13/21 22:22 Dose: 1 applic Pantoprazole Sodium (Pantoprazole 40 Mg Tablet) 40 mg PO HS@2200 [facility] Last Admin: 08/13/21 22:22 Dose: 40 mg Quetiapine Fumarate (Quetiapine 50 Mg Tab) 50 mg PO DAILY@1200 [facility] Last Admin: 08/13/21 14:06 Dose: 50 mg Quetiapine Fumarate (Quetiapine 100 Mg Tab) 300 mg PO HS@2300 [facility] Last Admin: 08/13/21 22:24 Dose: Not Given Simethicone (Simethicone 80 Mg Chewable) 80 mg PO PC-TID PRN PRN Reason: UPPERGASTRIC DISTRESS PHYSICAL EXAMINATION: GENERAL: The patient is alert and oriented x4, morbidly obese Well developed, well nourished. HEENT: Pupils are round and equally reacting to light. EOMI. no scleral icterus. No conjunctival pallor. Normocephalic, atraumatic. No pharyngeal erythema. No thyromegaly. CARDIOVASCULAR: S1 and S2 muffled PULMONARY: diminished breath sounds bilaterally with some crackles and scattered rhonchi noted. ABDOMEN: soft. Nontender on exam. obese. non-distended, normoactive bowel so unds. No palpable organomegaly. MUSCULOSKELETAL: No joint swelling or deformity. EXTREMITIES: No cyanosis, clubbing, or pedal edema. Generalized edema noted throughout NEUROLOGICAL: Gross neurological examination did not reveal any focal deficits. Diffuse weakness SKIN: No rashes. Assessment: Atrial fibrillation with RVR new onset Congestive heart failure, acute exacerbation with preserved EF Morbid obesity with a BMI of 73.5 COPD, acute exacerbation Diabetes mellitus, type 2 History of PE HIstory of esbl, MRSA Left hip wound GI prophylaxis DVT prophylaxis Full code Plan: Recommend to continue with current medications and management with cardiology following. Infectious disease following for left hip wound and appreciate input and recommendations. Local wound care and frequent position changes. Pulmonary also following and will continue on breathing inhalational treatments and patient is also continued on IV Lasix. Patient was on IV amiodarone along with IV heparin with transitioning to Coumadin. Transitioned to oral amiodarone. 2-D echo ordered and pending at this time. unable to retrieve reports at this time. Will follow up and recommend repeat labs and close monitoring. Recommend continuing with telemetry monitoring. Patient is a resident at [facility] and will be returning there once stabilized and discharged. Due to multiple complex medical issues, prognosis is guarded. The impression and plan of care has been dictated by Shefali Becerra, nurse practitioner as directed. Dr. Mari MD I have performed a history and examination and MDM of this patient, discussed the same with the dictator, and agree with the dictator's assessment and plan as written ,documented as a scribe. Based on total visit time, I have performed more than 50% of the visit. Any additional findings or plans will be noted. Objective - Vital Signs Vital signs: Vital Signs Temp 97.4 F L 08/14/21 00:00 Pulse 81 08/14/21 00:00 Resp 20 08/14/21 02:00 BP 117/74 08/14/21 00:00 Pulse Ox 97 08/14/21 00:00 FiO2 40 08/11/21 14:53 Intake & Output 08/13/21 08/13/21 08/14/21 06:59 18:59 06:59 Intake Total 330.616 100 370 Output Total 150 Balance 180.616 100 370 Intake: Intake, IV Titration 330.616 250 Amount Amiodarone 450 mg In 155.559 Dextrose 5% in Water 250 ml @ 0.5 MG/MIN 16.667 mls/hr IV .Q15H [facility] Rx#: [id number] Heparin Sod,Pork in 0.45% 175.057 250 NaCl 25,000 unit In 0.45 % NaCl 1 250ml.bag @ 5. 151 UNITS/KG/HR 10 mls/hr IV .Q24H [facility] Rx#: [id number] Oral 0 100 120 Output: Urine 150 Other: Voiding Method Indwelling Catheter Indwelling Catheter Indwelling Catheter # Bowel Movements 0 - Labs CBC & Chem 7: 08/13/21 03:40 08/13/21 03:40 Labs: Abnormal Lab Results - Last 24 Hours (Table) 08/13/21 08/13/21 08/13/21 Range/Units 03:40 03:40 03:40 WBC 13.5 H (3.8-10.6) k/uL RBC 3.79 L (3.80-5.40) m/uL Hgb 10.9 L (11.4-16.0) gm/dL MCHC 29.2 L (31.0-37.0) g/dL RDW 15.9 H (11.5-15.5) % Neutrophils # 11.1 H (1.3-7.7) k/uL PT 15.4 H (9.0-12.0) sec INR 1.5 H (<1.2) APTT 48.8 H (22.0-30.0) sec Sodium 132 L (137-145) mmol/L Chloride 84 L (98-107) mmol/L Carbon Dioxide 40 H (22-30) mmol/L BUN 29 H (7-17) mg/dL Glucose 167 H (74-99) mg/dL POC Glucose (mg/dL) (75-99) mg/dL 08/13/21 08/13/21 08/13/21 Range/Units 05:17 10:55 12:14 WBC (3.8-10.6) k/uL RBC (3.80-5.40) m/uL Hgb (11.4-16.0) gm/dL MCHC (31.0-37.0) g/dL RDW (11.5-15.5) % Neutrophils # (1.3-7.7) k/uL PT 15.9 H (9.0-12.0) sec INR 1.6 H (<1.2) APTT (22.0-30.0) sec Sodium (137-145) mmol/L Chloride (98-107) mmol/L Carbon Dioxide (22-30) mmol/L BUN (7-17) mg/dL Glucose (74-99) mg/dL POC Glucose (mg/dL) 182 H 149 H (75-99) mg/dL 08/13/21 08/13/21 Range/Units 17:00 21:05 WBC (3.8-10.6) k/uL RBC (3.80-5.40) m/uL Hgb (11.4-16.0) gm/dL MCHC (31.0-37.0) g/dL RDW (11.5-15.5) % Neutrophils # (1.3-7.7) k/uL PT (9.0-12.0) sec INR (<1.2) APTT (22.0-30.0) sec Sodium (137-145) mmol/L Chloride (98-107) mmol/L Carbon Dioxide (22-30) mmol/L BUN (7-17) mg/dL Glucose (74-99) mg/dL POC Glucose (mg/dL) 144 H 155 H (75-99) mg/dL
[2021-08-14] MEDS: INSULIN ASPART (NovoLOG) 100 UNIT/ML VIAL SQ SCH ×4 (06:28→21:57)
[2021-08-14 06:32] LABS: Glucose,Whole Blood 123 mg/dL (75-99)
[2021-08-14] MEDS: IPRATROPIUM-ALBUTEROL 3 ML NEB INHALATION SCH ×3 (07:21→20:42)
[2021-08-14 08:34] LABS: Calcium 9.4 mg/dL (8.4-10.2); Potassium 4.5 mmol/L (3.5-5.1)
[2021-08-14 08:54] LABS: INR 1.8 (<1.2); Prothrombin Time 18.4 sec (9.0-12.0)
[2021-08-14] MEDS: FOLIC ACID 1 MG TAB PO SCH (09:02)
[2021-08-14] MEDS: LORazepam 1 MG TAB PO SCH ×2 (09:02→16:38)
[2021-08-14] MEDS: DOCUSATE 100 MG CAP PO SCH (09:02)
[2021-08-14] MEDS: ESCITALOPRAM 20 MG TAB PO SCH (09:03)
[2021-08-14] MEDS: AMIODARONE 200 MG TAB PO SCH ×2 (09:03→21:57)
[2021-08-14] MEDS: METOPROLOL TARTRATE 25 MG TAB PO SCH ×3 (09:03→21:57)
[2021-08-14] MEDS: LEVOTHYROXINE 88 MCG TAB PO SCH (09:03)
[2021-08-14] MEDS: medroxyPROGESTERone 10 MG TABLET PO SCH (09:03)
[2021-08-14] MEDS: FERROUS SULFATE 325 MG TAB PO SCH ×2 (09:03→16:38)
[2021-08-14 10:16] LABS: Anisocytosis Slight; Basophils % (A) 0 %; Eosinophils % (A) 0 %; HGB 11.7 gm/dL (11.4-16.0); Hypochromasia Marked; Lymphocytes # (A) 1.5 k/uL (1.0-4.8); Lymphocytes % (A) 16 %; MCH 28.2 pg (25.0-35.0); MCHC 28.5 g/dL (31.0-37.0); MCV 98.7 fL (80.0-100.0); Macrocytosis Slight; Mean Platelet Volume 7.3; Monocytes # (A) 0.6 k/uL (0-1.0); Monocytes % (A) 7 %; Neutrophils # (A) 6.7 k/uL (1.3-7.7); Neutrophils % (A) 74 %; Platelet Count 377 k/uL (150-450); RBC 4.15 m/uL (3.80-5.40); RDW 16.3 % (11.5-15.5)
[2021-08-14] MEDS: NYSTATIN 100,000 UNIT/GM POWD 15 GM TOPICAL SCH ×2 (10:48→21:57)
--- NOTE | 2021-08-14 11:05 | US ---
EXAMINATION TYPE: US kidneys/renal and bladder DATE OF EXAM: 08/14/2021 COMPARISON: 11/15/2019 CLINICAL HISTORY: VALE. VALE Limited due to patient body habitus EXAM MEASUREMENTS: Right Kidney: 13.7 x 5.0 x 4.8 cm Left Kidney: 11.1 x 5.1 x 5.2 cm Right Kidney: Limited visualization of kidney. No evidence of hydronephrosis or masses. Left Kidney: Limited visualization of kidney. No evidence of hydronephrosis or masses. Bladder: Bladder not visualized due to lacy. Bilateral Jets seen: No IMPRESSION: 1. Kidneys as visualized appear unremarkable. There is limitation on this study due to body habitus.
[2021-08-14 12:02] LABS: Glucose,Whole Blood 102 mg/dL (75-99)
[2021-08-14] MEDS: LACTOBACILLUS ACIDOPH & BULGAR 1 EACH PACKET PO SCH (12:29)
[2021-08-14] MEDS: CHOLECALCIFEROL 25 MCG (1000 IU) TABLET PO SCH (12:29)
--- NOTE | 2021-08-14 12:30 | P.PN ---
Subjective Progress Note Date: 08/14/21 Morbidly obese 65-year-old female patient with chronic hypoxic and hypercapnic respiratory failure and a body mass index of 73 with chronic diastolic heart failure and chronic lower extremity edema in addition to multiple medical problems and comorbidities. The patient is known to have history of diabetes mellitus, hypertension, remote history of pulmonary embolism, hypothyroidism and the patient has been essentially sedentary and bedbound, nonambulatory for many years, a longterm resident. The patient comes into the hospital because of worsening shortness of breath and increased lower extremity edema. Things have progressed over the past few weeks. No chest pain. No altered mentation. No angina. She is bedbound. As the patient was being transported, she was also found to be in atrial fibrillation with RVR and this is of a new onset. She is on long-term medical condition with warfarin and her PT/INR is subtherapeutic and the patient is currently on IV heparin. The patient was also started on Cardizem drip at 10 mg an hour and amiodarone drip per protocol currently at 1 mg per minute. Heart rate is under better control for now. She is also on diuretics 40 mg of IV Lasix every 8 hours. 08/13/2021, clinically the same as yesterday. She was taken off the Cardizem drip and the patient is currently switched to oral amiodarone and the cardiac rhythm is still atrial fibrillation. Under better rate control. The patient remains on IV heparin and a PT INR is still subtherapeutic with an INR of 1.6. The patient remains on Lasix 40 mg IV every 8 hours. Urine output is quite low despite her extensive edema and the patient has a dark urine output with a active sediments. UA has not been checked today. BUN is 29 with a creatinine of 0.87. Sodium is at 132 with a potassium level of 4.4. INR is at 1.6. He will was 13.5 with a hemoglobin of 10.9. 08/14/2021, I'm seeing the patient for a follow-up. The patient is going well for now. The patient is clinically stable. However there is an ongoing issue with urine output as the patient is not producing adequate urine output and her urine output has dropped significantly since yesterday without any improvement with Lasix. She continues to have obvious signs of third spacing and volume overload. The creatinine currently is up to 1.4 indicating an underlying acute kidney injury. Based on that, nephrology consultation was requested. Serum bicarb is at 37. Sodium level is at 134. INR is at 1.8. The white cell count is at 9.0 with a hemoglobin of the 11.7. The patient is afebrile. The patient is on 3 L O2 nasal cannula with a pulse ox of 98%. No significant shortness of breath. Her breathing remains shallow pH is awake and alert and she is communicating. She is morbidly obese with a body mass index of 73. Claros catheter is in place. Objective - Vital Signs Vital signs: Vital Signs Temp 97.6 F 08/14/21 04:00 Pulse 112 H 08/14/21 07:35 Resp 20 08/14/21 04:00 BP 112/70 08/14/21 04:00 Pulse Ox 99 08/14/21 04:00 FiO2 40 08/11/21 14:53 Intake & Output 08/13/21 08/14/21 08/14/21 18:59 06:59 18:59 Intake Total 100 370 Output Total 225 Balance 100 145 Intake: Intake, IV Titration 250 Amount Heparin Sod,Pork in 0.45% 250 NaCl 25,000 unit In 0.45 % NaCl 1 250ml.bag @ 5. 151 UNITS/KG/HR 10 mls/hr IV .Q24H [facility] Rx#: [id number] Oral 100 120 Output: Urine 225 Uretheral (Claros) 225 Other: Voiding Method Indwelling Catheter Indwelling Catheter # Bowel Movements 0 - Exam Skin: Good color, texture, turgor. Morbidly obese, calm and comfortable, body mass index of 73, 3 LO2 nasal cannula General: Morbidly obese build and comfortable appearance. Head: Normocephalic, atraumatic. Eyes: Symmetric. Pupils equal round. Ears: Symmetric. Hearing within normal limits. Mouth: Clear. Neck: Supple. Carotid without bruit. Mallampati class IV. Cardiac: Irregular consistent with atrial fibrillation . Cardiac exam revealed the PMI to be normally situated and sized. No significant murmurs appreciated Lungs: Clear anteriorly and posteriorly. The breath sounds markedly diminished in the mid and lower lung his bilaterally. No wheezes. No rhonchi. Crackles are present in the lung bases bilaterally Abdomen: Soft active nontender obese. Extremities: Normal tone. There is significant swelling in lower extremities bilaterally and obvious arthritic changes in the knees bilaterally. There is an area of bruise over the left knee area where the fall and impact occurred. Neurological: Mental status: Alert, cooperative, pleasant. Cranial nerves: Symmetric facial tone and trapezius. Motor: Able to elevate both arms. Active movement at ankles but unable to elevate legs. Sensation: Intact throughout. DTRs: Symmetric and equal throughout. Mobility: Unable to sit or stand at due to knee pain and long-standing disc mobility. - Labs CBC & Chem 7: 08/14/21 09:16 08/14/21 08:00 Labs: Abnormal Lab Results - Last 24 Hours (Table) 08/13/21 08/13/21 08/13/21 Range/Units 10:55 12:14 17:00 PT 15.9 H (9.0-12.0) sec INR 1.6 H (<1.2) APTT (22.0-30.0) sec Sodium (137-145) mmol/L Chloride (98-107) mmol/L Carbon Dioxide (22-30) mmol/L BUN (7-17) mg/dL Creatinine (0.52-1.04) mg/dL Glucose (74-99) mg/dL POC Glucose (mg/dL) 149 H 144 H (75-99) mg/dL 08/13/21 08/14/21 08/14/21 Range/Units 21:05 06:27 08:00 PT (9.0-12.0) sec INR (<1.2) APTT (22.0-30.0) sec Sodium 134 L (137-145) mmol/L Chloride 86 L (98-107) mmol/L Carbon Dioxide 37 H (22-30) mmol/L BUN 38 H (7-17) mg/dL Creatinine 1.40 H (0.52-1.04) mg/dL Glucose 127 H (74-99) mg/dL POC Glucose (mg/dL) 155 H 123 H (75-99) mg/dL 08/14/21 08/14/21 Range/Units 08:00 08:00 PT 18.4 H (9.0-12.0) sec INR 1.8 H (<1.2) APTT 47.3 H (22.0-30.0) sec Sodium (137-145) mmol/L Chloride (98-107) mmol/L Carbon Dioxide (22-30) mmol/L BUN (7-17) mg/dL Creatinine (0.52-1.04) mg/dL Glucose (74-99) mg/dL POC Glucose (mg/dL) (75-99) mg/dL Assessment and Plan Plan: Acute shortness of breath, on top of chronic chronic, with acute worsening secondary to CHF and fluid overload. The chest x-ray is consistent with CHF, cardiomegaly and pulmonary edema and the patient has significant volume overload and increased lower extremity edema consistent with decompensated CHF. The patient was subjected to diuresis and the patient is not producing adequate urine output and there is a component of an acute kidney injury in the creatinine is up to 1.4 CHF probably a combination of biventricular diastolic heart failure with acute decompensation significant volume overload Acute kidney injury New-onset atrial fibrillation with a better rate control and the patient is currently on amiodarone 400 mg by mouth twice a day and metoprolol 25 mg by mouth twice a day. Chronic hypoxic respiratory failure, still on 2 L of oxygen by nasal cannula Morbid obesity with a BMI of 73.5 Chronic hypoxic and hypercapnic respiratory failure with a component of obesity hypoventilation syndrome Hypertension Previous history of pulmonary embolism maintained on long-term and to coagulation with warfarin, PT/INR is subtherapeutic Hypothyroidism, normal TSH, Chronic lower extremity edema Diabetes mellitus custodial resident Plan Continue Lasix Keep the Claros catheter in place Obtain ultrasound the kidneys Consult nephrology Oral amiodarone Continue IV heparin until the patient's PT/INR is therapeutic while on Coumadin, for now, INR is at 1.8 Monitor fluid balance Monitor renal function and electrolytes Strict input output Fluid restriction Echo has shown a moderate LV function impairment with an ejection fraction of 40-45% and there is a moderate pericardial effusion without any signs of tamponade. Noted the patient has history of hypothyroidism and her TSH has been also within normal at 4.5.. Hypothyroid Long-term prognosis poor baseline above-mentioned comorbidities. We'll continue to follow.
[2021-08-14] MEDS: QUEtiapine 50 MG TAB PO SCH (12:38)
--- NOTE | 2021-08-14 14:49 | P.PN ---
Subjective HISTORY OF PRESENT ILLNESS: This is a 65-year-old female with a past medical history significant for COPD, hypertension, hypothyroidism, and PE/DVT on Coumadin. Patient was last seen in the office in [address] Carlos. We have been asked to see the patient in consultation for A. fib with RVR. Patient examined at the bedside. The patient apparently was brought to the hospital from [facility] secondary to hypoxia. The patient states when they checked her oxygen saturations on her finger she was found to be 75%. She does report feeling short of breath. She denies any chest pain. She reports some swelling in her lower extremities and states that her leg feels like it is asleep and is requesting to be repositioned in bed. The patient was found to be in A. fib with RVR. The patient denies any history of atrial fibrillation. The patient was started on a Cardizem drip at 10 mg an hour. She remains in atrial fibrillation this morning with a heart rate in the 120s. * EKG reveals A. fib with RVR * Chest xray medical correlation recommended for congestive heart failure * Laboratory data: WBC 10.0. Hemoglobin 11.5. Platelet count 372. Sodium 136. Potassium 3.9. BUN 20. Creatinine 0.52. Troponin negative 1 * Current home cardiac medications include warfarin 5 mg Monday and 2.5 mg Monday, metoprolol tartrate 12.5 mg twice a day, Lasix 40 mg the morning and 20 mg in the afternoon * Most recent echocardiogram obtained in 2018 revealing ejection fraction 60- 65%, mild tricuspid regurgitation 08/13/2021 Patient examined this morning at the bedside. Patient denies chest pain or p ressure. She reports mild shortness of breath. She remains on IV Lasix 40 mg every 8 hours. She remains on IV amiodarone. Patient is receiving Coumadin. She is also on IV heparin until INR is therapeutic. INR this morning is currently pending. Echocardiogram completed revealing ejection fraction 40-45%, severe right ventricular dilatation, mild tricuspid regurgitation, and moderate pericardial effusion. Patient was found to have an elevated d-dimer yesterday 1.58. CTA chest was ordered. Per nursing, this was cancelled as patient was unable to fit in CT machine due to body habitus. 5/28 Patient seen and examined. She denies any chest pain or pressure. Appears confused and asking for help however not able to tell which she needs help with. Denies any shortness breath. Cr noted increased to 1.4 today up from 0.5 on presentation. ProBNP noted to be mild elevated 732 previously. PHYSICAL EXAM: VITAL SIGNS: Reviewed. GENERAL: Well-developed in no acute distress. HEENT: Head is normocephalic. Pupils are equal, round. Sclerae anicteric. Mucous membranes of the mouth are moist. Neck supple. No JVD or thyromegaly LUNGS: Respirations even and unlabored. Lungs diminished to auscultation bilaterally. HEART: Tachycardic. Irregular rate and rhythm. S1 and S2 heard. ABDOMEN: Soft. Nondistended. Nontender. EXTREMITIES: Normal range of motion. No clubbing or cyanosis. Peripheral pulses intact. Bilateral lower extremity edema present NEUROLOGIC: Awake and alert. Confused ASSESSMENT: New onset A. fib with RVR Acute hypoxic respiratory failure Acute on chronic heart failure with preserved ejection fraction COPD Hypertension Hypothyroidism History of PE/DVT on Coumadin Diabetes Moderate pericardial effusion Elevated d-dimer, unable to have CTA due to body habitus PLAN: Continue telemetry monitoring Continue oral amio 400mg BID Contiue metoprolol to 25mg TID Continue Coumadin. Monitor INR Continue IV heparin until Coumadin is therapeutic with an INR of 2.0 or greater D-Dimer elevated. Patient unable to fit in CT machine due to body habitus. Await further recommendations from pulmonary regarding abnormal d-dimer. Hold IV Lasix given increased creatinine. Monitor creatinine, difficult to evaluate findings status with severely obese lower extremities. Further recommendations pending patient's course Objective - Vital Signs Vital signs: Vital Signs Temp 96.9 F L 08/14/21 12:00 Pulse 101 H 08/14/21 12:00 Resp 18 08/14/21 12:00 BP 114/68 08/14/21 12:00 Pulse Ox 92 L 08/14/21 12:00 FiO2 40 08/11/21 14:53 Intake & Output 08/13/21 08/14/21 08/14/21 18:59 06:59 18:59 Intake Total 100 370 Output Total 225 Balance 100 145 Intake: Intake, IV Titration 250 Amount Heparin Sod,Pork in 0.45% 250 NaCl 25,000 unit In 0.45 % NaCl 1 250ml.bag @ 5. 151 UNITS/KG/HR 10 mls/hr IV .Q24H [facility] Rx#: [id number] Oral 100 120 Output: Urine 225 Uretheral (Claros) 225 Other: Voiding Method Indwelling Catheter Indwelling Catheter Indwelling Catheter # Bowel Movements 0 0 - Labs CBC & Chem 7: 08/14/21 09:16 08/14/21 08:00 Labs: Abnormal Lab Results - Last 24 Hours (Table) 08/13/21 08/13/21 08/14/21 Range/Units 17:00 21:05 06:27 MCHC (31.0-37.0) g/dL RDW (11.5-15.5) % PT (9.0-12.0) sec INR (<1.2) APTT (22.0-30.0) sec Sodium (137-145) mmol/L Chloride (98-107) mmol/L Carbon Dioxide (22-30) mmol/L BUN (7-17) mg/dL Creatinine (0.52-1.04) mg/dL Glucose (74-99) mg/dL POC Glucose (mg/dL) 144 H 155 H 123 H (75-99) mg/dL 08/14/21 08/14/21 08/14/21 Range/Units 08:00 08:00 08:00 MCHC (31.0-37.0) g/dL RDW (11.5-15.5) % PT 18.4 H (9.0-12.0) sec INR 1.8 H (<1.2) APTT 47.3 H (22.0-30.0) sec Sodium 134 L (137-145) mmol/L Chloride 86 L (98-107) mmol/L Carbon Dioxide 37 H (22-30) mmol/L BUN 38 H (7-17) mg/dL Creatinine 1.40 H (0.52-1.04) mg/dL Glucose 127 H (74-99) mg/dL POC Glucose (mg/dL) (75-99) mg/dL 08/14/21 08/14/21 Range/Units 09:16 12:00 MCHC 28.5 L (31.0-37.0) g/dL RDW 16.3 H (11.5-15.5) % PT (9.0-12.0) sec INR (<1.2) APTT (22.0-30.0) sec Sodium (137-145) mmol/L Chloride (98-107) mmol/L Carbon Dioxide (22-30) mmol/L BUN (7-17) mg/dL Creatinine (0.52-1.04) mg/dL Glucose (74-99) mg/dL POC Glucose (mg/dL) 102 H (75-99) mg/dL
[2021-08-14] MEDS: CALCIUM CARBONATE 500 MG CHEWABLE PO SCH (16:38)
[2021-08-14] MEDS: MULTIVITAMINS, THERA 1 EACH TAB PO SCH (16:38)
[2021-08-14] MEDS: CYANOCOBALAMIN 500 MCG TAB PO SCH (16:38)
[2021-08-14] MEDS: ASCORBIC ACID 500 MG TAB PO SCH (16:38)
[2021-08-14] MEDS: LINAGLIPTIN 5 MG TABLET PO SCH (16:38)
[2021-08-14] MEDS: CALCIUM CARB-VIT D 500 MG-5 MCG TAB PO SCH (16:38)
[2021-08-14 16:57] LABS: Glucose,Whole Blood 89 mg/dL (75-99)
[2021-08-14] MEDS ORDERED: WARFARIN 3 MG TAB PO ONE (18:00)
--- NOTE | 2021-08-14 20:42 | P.PN ---
Subjective Progress Note Date: 08/13/21 Principal diagnosis: Left lateral thigh wound/rash, groin Cutaneous candidiasis Patient is a 65-year-old female with multiple comorbidities morbid obesity presented to the hospital with increasing shortness of breath patient was also noticed to have a extensive bilateral groin area Cutaneous candidiasis and also an erythematous patch to the left lateral thigh area. On today's evaluation that is 08/13/2021, the patient denies having any fever or chills has been complaining of some shortness of breath no chest pain no worsening covers sputum production no abdominal pain or pain to the left lateral thigh area Objective - Vital Signs Vital signs: Vital Signs Temp 98.0 F 08/13/21 08:00 Pulse 115 H 08/13/21 08:00 Resp 18 08/13/21 08:00 BP 107/73 08/13/21 08:00 Pulse Ox 97 08/13/21 08:00 FiO2 40 08/11/21 14:53 Intake & Output 08/12/21 08/13/21 08/13/21 18:59 06:59 18:59 Intake Total 330.616 0 Output Total 150 Balance 180.616 0 Intake: Intake, IV Titration 330.616 Amount Amiodarone 450 mg In 155.559 Dextrose 5% in Water 250 ml @ 0.5 MG/MIN 16.667 mls/hr IV .Q15H [facility] Rx#: [id number] Heparin Sod,Pork in 0.45% 175.057 NaCl 25,000 unit In 0.45 % NaCl 1 250ml.bag @ 5. 151 UNITS/KG/HR 10 mls/hr IV .Q24H [facility] Rx#: [id number] Oral 0 0 Output: Urine 150 Other: Voiding Method Indwelling Catheter - Exam GENERAL DESCRIPTION: An elderlyfemale lying in bed in no distress RESPIRATORY SYSTEM: Unlabored breathing , decreased breath sounds at bases HEART: S1 S2 regular rate and rhythm , ABDOMEN: Soft , no tenderness EXTREMITIES: Diffuse swelling bilateral lower extremity with an erythematous patch to left lateral thigh - Labs CBC & Chem 7: 08/14/21 09:16 08/14/21 08:00 Labs: Abnormal Lab Results - Last 24 Hours (Table) 08/12/21 08/12/21 08/13/21 Range/Units 19:35 19:37 03:40 WBC 13.5 H (3.8-10.6) k/uL RBC 3.79 L (3.80-5.40) m/uL Hgb 10.9 L (11.4-16.0) gm/dL MCHC 29.2 L (31.0-37.0) g/dL RDW 15.9 H (11.5-15.5) % Neutrophils # 11.1 H (1.3-7.7) k/uL PT (9.0-12.0) sec INR (<1.2) APTT 35.6 H (22.0-30.0) sec Sodium (137-145) mmol/L Chloride (98-107) mmol/L Carbon Dioxide (22-30) mmol/L BUN (7-17) mg/dL Glucose (74-99) mg/dL POC Glucose (mg/dL) 168 H (75-99) mg/dL 08/13/21 08/13/21 08/13/21 Range/Units 03:40 03:40 05:17 WBC (3.8-10.6) k/uL RBC (3.80-5.40) m/uL Hgb (11.4-16.0) gm/dL MCHC (31.0-37.0) g/dL RDW (11.5-15.5) % Neutrophils # (1.3-7.7) k/uL PT 15.4 H (9.0-12.0) sec INR 1.5 H (<1.2) APTT 48.8 H (22.0-30.0) sec Sodium 132 L (137-145) mmol/L Chloride 84 L (98-107) mmol/L Carbon Dioxide 40 H (22-30) mmol/L BUN 29 H (7-17) mg/dL Glucose 167 H (74-99) mg/dL POC Glucose (mg/dL) 182 H (75-99) mg/dL 08/13/21 08/13/21 Range/Units 10:55 12:14 WBC (3.8-10.6) k/uL RBC (3.80-5.40) m/uL Hgb (11.4-16.0) gm/dL MCHC (31.0-37.0) g/dL RDW (11.5-15.5) % Neutrophils # (1.3-7.7) k/uL PT 15.9 H (9.0-12.0) sec INR 1.6 H (<1.2) APTT (22.0-30.0) sec Sodium (137-145) mmol/L Chloride (98-107) mmol/L Carbon Dioxide (22-30) mmol/L BUN (7-17) mg/dL Glucose (74-99) mg/dL POC Glucose (mg/dL) 149 H (75-99) mg/dL Assessment and Plan (1) Candidiasis Current Visit: Yes Status: Acute Code(s): B37.9 - CANDIDIASIS, UNSPECIFIED SNOMED Code(s): 26253108 Plan: 1patient with left lateral thigh wound with no evidence of any cellulitis and oozing could be related to the fluid overload state recommend local care with the Triad cream which should be applied daily. 2 Patient with bilateral groin area cutaneous candidiasis but no cellulitis we will apply nystatin powder twice a day. 3no evidence of any cellulitis or pneumonia will monitor the patient closely off antibiotic therapy. Time with Patient: Less than 30
--- NOTE | 2021-08-14 20:43 | P.PN ---
Subjective Progress Note Date: 08/14/21 Principal diagnosis: Left lateral thigh wound/rash, groin Cutaneous candidiasis Patient is a 65-year-old female with multiple comorbidities morbid obesity presented to the hospital with increasing shortness of breath patient was also noticed to have a extensive bilateral groin area Cutaneous candidiasis and also an erythematous patch to the left lateral thigh area. On today's evaluation that is 08/14/2021, the patient remains to be afebrile, the patient denies any chest pain no worsening shortness of breath or cough, no abdominal pain or pain to the left lateral thigh area Objective - Vital Signs Vital signs: Vital Signs Temp 96.2 F L 08/14/21 16:00 Pulse 100 08/14/21 16:00 Resp 18 08/14/21 16:00 BP 109/65 08/14/21 16:00 Pulse Ox 91 L 08/14/21 16:00 FiO2 40 08/11/21 14:53 Intake & Output 08/14/21 08/14/21 08/15/21 06:59 18:59 06:59 Intake Total 370 922.49 Output Total 225 0 Balance 145 922.49 Intake: IV 80 .9 80 Intake, IV Titration 250 242.49 Amount Heparin Sod,Pork in 0.45% 250 242.49 NaCl 25,000 unit In 0.45 % NaCl 1 250ml.bag @ 5. 151 UNITS/KG/HR 10 mls/hr IV .Q24H [facility] Rx#: [id number] Oral 120 600 Output: Urine 225 0 Uretheral (Claros) 225 Other: Voiding Method Indwelling Catheter Indwelling Catheter # Bowel Movements 0 - Exam GENERAL DESCRIPTION: An elderlyfemale lying in bed in no distress RESPIRATORY SYSTEM: Unlabored breathing , decreased breath sounds at bases HEART: S1 S2 regular rate and rhythm , ABDOMEN: Soft , no tenderness EXTREMITIES: Diffuse swelling bilateral lower extremity with an erythematous patch to left lateral thigh - Labs CBC & Chem 7: 08/14/21 09:16 08/14/21 08:00 Labs: Abnormal Lab Results - Last 24 Hours (Table) 08/13/21 08/14/21 08/14/21 Range/Units 21:05 06:27 08:00 MCHC (31.0-37.0) g/dL RDW (11.5-15.5) % PT (9.0-12.0) sec INR (<1.2) APTT (22.0-30.0) sec Sodium 134 L (137-145) mmol/L Chloride 86 L (98-107) mmol/L Carbon Dioxide 37 H (22-30) mmol/L BUN 38 H (7-17) mg/dL Creatinine 1.40 H (0.52-1.04) mg/dL Glucose 127 H (74-99) mg/dL POC Glucose (mg/dL) 155 H 123 H (75-99) mg/dL 08/14/21 08/14/21 08/14/21 Range/Units 08:00 08:00 09:16 MCHC 28.5 L (31.0-37.0) g/dL RDW 16.3 H (11.5-15.5) % PT 18.4 H (9.0-12.0) sec INR 1.8 H (<1.2) APTT 47.3 H (22.0-30.0) sec Sodium (137-145) mmol/L Chloride (98-107) mmol/L Carbon Dioxide (22-30) mmol/L BUN (7-17) mg/dL Creatinine (0.52-1.04) mg/dL Glucose (74-99) mg/dL POC Glucose (mg/dL) (75-99) mg/dL 08/14/21 Range/Units 12:00 MCHC (31.0-37.0) g/dL RDW (11.5-15.5) % PT (9.0-12.0) sec INR (<1.2) APTT (22.0-30.0) sec Sodium (137-145) mmol/L Chloride (98-107) mmol/L Carbon Dioxide (22-30) mmol/L BUN (7-17) mg/dL Creatinine (0.52-1.04) mg/dL Glucose (74-99) mg/dL POC Glucose (mg/dL) 102 H (75-99) mg/dL Assessment and Plan (1) Non-healing skin lesion Current Visit: No Status: Acute Code(s): L98.9 - DISORDER OF THE SKIN AND SUBCUTANEOUS TISSUE, UNSPECIFIED SNOMED Code(s): 03171065 Plan: 1patient with left lateral thigh wound with no evidence of any cellulitis and oozing could be related to the fluid overload state with switch over local wound care to the Mycolog cream applied twice a day. 2 Patient with bilateral groin area cutaneous candidiasis but no cellulitis we will apply nystatin powder twice a day. Time with Patient: Less than 30
[2021-08-14] MEDS ORDERED: NYSTAT-TRIAMCIN 100,000-0.1 UNIT/GM-% CREAM 30 GM TUBE TOPICAL SCH (21:00)
[2021-08-14 21:16] LABS: Glucose,Whole Blood 122 mg/dL (75-99)
[2021-08-14] MEDS: PANTOPRAZOLE 40 MG TABLET PO SCH (21:57)
[2021-08-14] MEDS: QUEtiapine 100 MG TAB PO SCH (21:57)
[2021-08-14] MEDS: NYSTATIN 100,000UNIT/GM CREAM 30 GM TUBE TOPICAL SCH (22:05)
[2021-08-14] MEDS: TRIAMCINOLONE 0.1% CREAM 80 GM TUBE TOPICAL SCH (22:05)
--- NOTE | 2021-08-14 22:50 | P.PN ---
Subjective Progress Note Date: 08/14/21 This 65-year-old female was recently admitted with CHF and atrial fibrillation cardio following closely. Patient was maintained on IV Cardizem which is currently being transitioned IV amiodarone along with IV heparin. 2-D echo was ordered and pending at this time. Patient continues on 2 L of oxygen via nasal cannula at 90% oxygen pulse ox and continues to report shortness of breath and generalized weakness. Patient is morbidly obese with a BMI of 73.5 and resides in [facility]. Patient's blood pressure is elevated and will initiate Norvasc 10 mg daily and monitor closely. Infectious disease also consulted for a wound on the left hip along with pulmonary for COPD acute exacerbation. Patient denies any chest pain and patient is afebrile. 08/13/2021 Patient is seen today in follow up and continues to report shortness of breath. Cardiology and pulmonary and ID following. Patient is continued on bronchodilators and also continues on IV lasix. IV heparin continued and being started on coumadin. Transitioned to oral amiodarone and cardiology adjusting medications. Patient denies chest pain and is afebrile. 08/14/2021 Patient is seen this am and continues with cardiology and pulmonary following. Neprhology consulted for elevated kidney functions and patient is continued on IV lasix. US renal/bladder and pending. Patient continues with 3L via NC and breathing treatments along with IV heparin and coumadin with pharmacy to dose. Cardiology also following. Patient is afebrile and denies any chest pain. Patient reports not eating or drinking. Review of systems: Constitutional: reports of fatigue and weakness, no reports of fever, or chills Cardiovascular: No reports of chest pain or palpitations Respiratory: reports of shortness of breath GI: No reports of nausea, no reports of of vomiting : No reports of dysuria or retention Neurovascular: reports of generalized weakness All medications have been reviewed Active Medications Acetaminophen (Acetaminophen Tab 325 Mg Tab) 650 mg PO Q6HR PRN PRN Reason: Mild Pain or Fever > 100.5 Albuterol/Ipratropium (Ipratropium-Albuterol 3 Ml Neb) 3 ml INHALATION RT-TID [facility] Last Admin: 08/13/21 20:39 Dose: Not Given Amiodarone HCl (Amiodarone 200 Mg Tab) 400 mg PO BID [facility] Last Admin: 08/13/21 22:22 Dose: 400 mg Ascorbic Acid (Ascorbic Acid 500 Mg Tab) 500 mg PO DAILY@1700 [facility] Last Admin: 08/13/21 18:15 Dose: 500 mg Bisacodyl (Bisacodyl 10 Mg Supp) 10 mg RECTAL DAILY PRN PRN Reason: Constipation Calcium Carbonate (Calcium Carb-Vit D 500 Mg-5 Mcg Tab) 1 each PO DAILY@1700 [facility] Last Admin: 08/13/21 18:16 Dose: 1 each Calcium Carbonate/Glycine (Calcium Carbonate 500 Mg Chewable) 500 mg PO DAILY@1700 [facility] Last Admin: 08/13/21 18:15 Dose: 500 mg Cholecalciferol (Cholecalciferol 25 Mcg (1000 Iu) Tablet) 100 mcg PO DAILY@1200 [facility] Last Admin: 08/13/21 14:06 Dose: 100 mcg Cyanocobalamin (Cyanocobalamin 500 Mcg Tab) 500 mcg PO DAILY@1700 [facility] Last Admin: 08/13/21 18:15 Dose: 500 mcg Docusate Sodium (Docusate 100 Mg Cap) 100 mg PO DAILY@1000 [facility] Last Admin: 08/13/21 10:00 Dose: 100 mg Escitalopram Oxalate (Escitalopram 20 Mg Tab) 20 mg PO DAILY@1000 [facility] Last Admin: 08/13/21 10:00 Dose: 20 mg Ferrous Sulfate (Ferrous Sulfate 325 Mg Tab) 325 mg PO BID@1000,1700 [facility] Last Admin: 08/13/21 18:16 Dose: 325 mg Folic Acid (Folic Acid 1 Mg Tab) 0.5 mg PO DAILY@1000 [facility] Last Admin: 08/13/21 09:59 Dose: 0.5 mg Furosemide (Furosemide 10 Mg/Ml 4 Ml Vial) 40 mg IV Q8HR [facility] Last Admin: 08/14/21 00:46 Dose: 40 mg Glipizide (Glipizide 2.5 Mg Tab) 2.5 mg PO DAILY@1000 [facility] Last Admin: 08/13/21 09:59 Dose: 2.5 mg Guaifenesin (Guaifenesin Syrup 100mg/5ml 200 Mg/10 Ml Cup) 100 mg PO Q4H PRN PRN Reason: Cough Heparin Sodium (Porcine) (Heparin Sodium 1,000 Un/Ml (10ml Vl)) 0 unit IV PER PROTOCOL PRN; Protocol PRN Reason: Low PTT Last Admin: 08/12/21 20:47 Dose: 4,850 unit Heparin Sodium/Sodium Chloride (25,000 unit/ Sodium Chloride) 250 mls @ 10 mls/hr IV .Q24H [facility]; Protocol Last Admin: 08/14/21 00:46 Dose: 7.151 units/kg/hr, 13.883 mls/hr Insulin Aspart (Insulin Aspart (Novolog) 100 Unit/Ml Vial) 0 unit SQ ACHS [facility]; Protocol Last Admin: 08/13/21 22:22 Dose: 2 unit Lactobacillus Acidoph/Bulgaricus (Lactobacillus Acidoph & Bulgar 1 Each Packet) 1 each PO DAILY@1200 [facility] Last Admin: 08/13/21 14:06 Dose: 1 each Levothyroxine Sodium (Levothyroxine 88 Mcg Tab) 88 mcg PO DAILY@1000 [facility] Last Admin: 08/13/21 10:00 Dose: 88 mcg Lidocaine (Lidocaine 5% Ointment 50 Gm Jar) 1 applic TOPICAL HS PRN PRN Reason: WOUND PAIN Linagliptin (Linagliptin 5 Mg Tablet) 5 mg PO DAILY@1700 [facility] Last Admin: 08/13/21 18:15 Dose: 5 mg Lorazepam (Lorazepam 1 Mg Tab) 1 mg PO Q4H PRN PRN Reason: Anxiety Lorazepam (Lorazepam 1 Mg Tab) 1 mg PO BID@1000,1700 [facility] Last Admin: 08/13/21 18:15 Dose: 1 mg Magnesium Hydroxide (Magnesium Hydroxide 2,400 Mg/10 Ml Cup) 2,400 mg PO Q48H PRN PRN Reason: Constipation Medroxyprogesterone Acetate (Medroxyprogesterone 10 Mg Tablet) 10 mg PO DAILY@1000 [facility] Last Admin: 08/13/21 10:00 Dose: 10 mg Methyl Salicylate (Methyl Salicylate-Menthol Oint (3 Oz Tube)) 1 applic TOPICAL DAILY PRN PRN Reason: pain Metoprolol Tartrate (Metoprolol Tartrate 25 Mg Tab) 25 mg PO TID [facility] Last Admin: 08/13/21 22:22 Dose: 25 mg Miscellaneous Information (Warfarin Per Pharmacy) 1 each MISCELLANE DIRECTED PRN; Protocol PRN Reason: Per Protocol Multivitamins (Multivitamins, Thera 1 Each Tab) 1 each PO DAILY@1700 [facility] Last Admin: 08/13/21 18:15 Dose: 1 each Naloxone HCl (Naloxone 0.4 Mg/Ml 1 Ml Vial) 0.2 mg IV Q2M PRN PRN Reason: Opioid Reversal Nystatin (Nystatin 100,000 Unit/Gm Powd 15 Gm) 1 applic TOPICAL BID [facility]; Protocol Last Admin: 08/13/21 22:22 Dose: 1 applic Pantoprazole Sodium (Pantoprazole 40 Mg Tablet) 40 mg PO HS@2200 [facility] Last Admin: 08/13/21 22:22 Dose: 40 mg Quetiapine Fumarate (Quetiapine 50 Mg Tab) 50 mg PO DAILY@1200 [facility] Last Admin: 08/13/21 14:06 Dose: 50 mg Quetiapine Fumarate (Quetiapine 100 Mg Tab) 300 mg PO HS@2300 [facility] Last Admin: 08/13/21 22:24 Dose: Not Given Simethicone (Simethicone 80 Mg Chewable) 80 mg PO PC-TID PRN PRN Reason: UPPERGASTRIC DISTRESS PHYSICAL EXAMINATION: GENERAL: The patient is alert and oriented x3, morbidly obese Well developed, well nourished. HEENT: Pupils are round and equally reacting to light. EOMI. no scleral icterus. No conjunctival pallor. Normocephalic, atraumatic. No pharyngeal erythema. No thyromegaly. CARDIOVASCULAR: S1 and S2 muffled PULMONARY: diminished breath sounds bilaterally with some crackles and scattered rhonchi noted. ABDOMEN: soft. Nontender on exam. obese. non-distended, normoactive bowel sounds. No palpable organomegaly. MUSCULOSKELETAL: No joint swelling or deformity. EXTREMITIES: No cyanosis, clubbing, or pedal edema. Generalized edema noted throughout NEUROLOGICAL: Gross neurological examination did not reveal any focal deficits. Diffuse weakness SKIN: No rashes. Assessment: Atrial fibrillation with RVR new onset Congestive heart failure, acute exacerbation with preserved EF Morbid obesity with a BMI of 73.5 COPD, acute exacerbation Diabetes mellitus, type 2 History of PE HIstory of esbl, MRSA Left hip wound GI prophylaxis DVT prophylaxis Full code Plan: Recommend to continue with current medications and management with cardiology following. Infectious disease following for left hip wound and appreciate input and recommendations. Local wound care and frequent position changes. Pulmonary also following and will continue on breathing inhalational treatments and patient is also continued on IV Lasix. Patient with IV heparin with transitioning to Coumadin. Transitioned to oral amiodarone. Will follow up and recommend repeat labs and close monitoring. Recommend continuing with telemetry monitoring. Patient is a resident at [facility] and will be returning there once stabilized and discharged. Due to multiple complex medical issues, prognosis is guarded. The impression and plan of care has been dictated by Shefali Becerra, nurse practitioner as directed. Dr. Mari MD I have performed a history and examination and MDM of this patient, discussed the same with the dictator, and agree with the dictator's assessment and plan as written ,documented as a scribe. Based on total visit time, I have performed more than 50% of the visit. Any additional findings or plans will be noted. Objective - Vital Signs Vital signs: Vital Signs Temp 98 F 08/14/21 07:40 Pulse 104 H 08/14/21 11:12 Resp 19 08/14/21 07:40 BP 102/71 08/14/21 07:40 Pulse Ox 98 08/14/21 07:40 FiO2 40 08/11/21 14:53 Intake & Output 08/13/21 08/14/21 08/14/21 18:59 06:59 18:59 Intake Total 100 370 Output Total 225 Balance 100 145 Intake: Intake, IV Titration 250 Amount Heparin Sod,Pork in 0.45% 250 NaCl 25,000 unit In 0.45 % NaCl 1 250ml.bag @ 5. 151 UNITS/KG/HR 10 mls/hr IV .Q24H [facility] Rx#: [id number] Oral 100 120 Output: Urine 225 Uretheral (Claros) 225 Other: Voiding Method Indwelling Catheter Indwelling Catheter Indwelling Catheter # Bowel Movements 0 0 - Labs CBC & Chem 7: 08/14/21 09:16 08/14/21 08:00 Labs: Abnormal Lab Results - Last 24 Hours (Table) 08/13/21 08/13/21 08/13/21 Range/Units 10:55 12:14 17:00 MCHC (31.0-37.0) g/dL RDW (11.5-15.5) % PT 15.9 H (9.0-12.0) sec INR 1.6 H (<1.2) APTT (22.0-30.0) sec Sodium (137-145) mmol/L Chloride (98-107) mmol/L Carbon Dioxide (22-30) mmol/L BUN (7-17) mg/dL Creatinine (0.52-1.04) mg/dL Glucose (74-99) mg/dL POC Glucose (mg/dL) 149 H 144 H (75-99) mg/dL 08/13/21 08/14/21 08/14/21 Range/Units 21:05 06:27 08:00 MCHC (31.0-37.0) g/dL RDW (11.5-15.5) % PT (9.0-12.0) sec INR (<1.2) APTT (22.0-30.0) sec Sodium 134 L (137-145) mmol/L Chloride 86 L (98-107) mmol/L Carbon Dioxide 37 H (22-30) mmol/L BUN 38 H (7-17) mg/dL Creatinine 1.40 H (0.52-1.04) mg/dL Glucose 127 H (74-99) mg/dL POC Glucose (mg/dL) 155 H 123 H (75-99) mg/dL 08/14/21 08/14/21 08/14/21 Range/Units 08:00 08:00 09:16 MCHC 28.5 L (31.0-37.0) g/dL RDW 16.3 H (11.5-15.5) % PT 18.4 H (9.0-12.0) sec INR 1.8 H (<1.2) APTT 47.3 H (22.0-30.0) sec Sodium (137-145) mmol/L Chloride (98-107) mmol/L Carbon Dioxide (22-30) mmol/L BUN (7-17) mg/dL Creatinine (0.52-1.04) mg/dL Glucose (74-99) mg/dL POC Glucose (mg/dL) (75-99) mg/dL 08/14/21 Range/Units 12:00 MCHC (31.0-37.0) g/dL RDW (11.5-15.5) % PT (9.0-12.0) sec INR (<1.2) APTT (22.0-30.0) sec Sodium (137-145) mmol/L Chloride (98-107) mmol/L Carbon Dioxide (22-30) mmol/L BUN (7-17) mg/dL Creatinine (0.52-1.04) mg/dL Glucose (74-99) mg/dL POC Glucose (mg/dL) 102 H (75-99) mg/dL
[2021-08-15] MEDS: FUROSEMIDE 10 MG/ML 4 ML VIAL IV SCH ×2 (01:19→09:08)
[2021-08-15 06:05] LABS: Glucose,Whole Blood 99 mg/dL (75-99)
[2021-08-15] MEDS: INSULIN ASPART (NovoLOG) 100 UNIT/ML VIAL SQ SCH ×4 (06:27→20:35)
[2021-08-15] MEDS: IPRATROPIUM-ALBUTEROL 3 ML NEB INHALATION SCH ×3 (07:46→19:50)
[2021-08-15] MEDS: LEVOTHYROXINE 88 MCG TAB PO SCH (09:06)
[2021-08-15] MEDS: FERROUS SULFATE 325 MG TAB PO SCH ×2 (09:06→17:26)
[2021-08-15] MEDS: DOCUSATE 100 MG CAP PO SCH (09:06)
[2021-08-15] MEDS: ESCITALOPRAM 20 MG TAB PO SCH (09:06)
[2021-08-15] MEDS: FOLIC ACID 1 MG TAB PO SCH (09:06)
[2021-08-15] MEDS: AMIODARONE 200 MG TAB PO SCH ×2 (09:06→20:47)
[2021-08-15] MEDS: LORazepam 1 MG TAB PO SCH ×2 (09:06→17:26)
[2021-08-15] MEDS: METOPROLOL TARTRATE 25 MG TAB PO SCH ×3 (09:06→20:47)
[2021-08-15] MEDS: medroxyPROGESTERone 10 MG TABLET PO SCH (09:06)
[2021-08-15] MEDS: TRIAMCINOLONE 0.1% CREAM 80 GM TUBE TOPICAL SCH ×2 (09:07→20:48)
[2021-08-15] MEDS: NYSTATIN 100,000UNIT/GM CREAM 30 GM TUBE TOPICAL SCH ×2 (09:07→20:48)
[2021-08-15] MEDS: NYSTATIN 100,000 UNIT/GM POWD 15 GM TOPICAL SCH ×2 (09:08→22:56)
[2021-08-15 09:17] LABS: INR 2.8 (<1.2); Partial Thromboplastin Time 63.3 sec (22.0-30.0); Prothrombin Time 28.3 sec (9.0-12.0)
[2021-08-15 09:27] LABS: Calcium 9.4 mg/dL (8.4-10.2); Potassium 4.3 mmol/L (3.5-5.1)
[2021-08-15] MEDS ORDERED: MIDODRINE 5 MG TAB PO STA ×2 (09:46→10:09)
[2021-08-15] MEDS: SODIUM CHLORIDE 0.9% 250 ML IV SCH ×5 (10:12→12:29)
--- NOTE | 2021-08-15 10:43 | P.NPCON ---
History of Present Illness - Reason for Consult acute renal failure - History of Present Illness Patient is a 65-year-old female with history of chronic hypoxic and hypercapnic respiratory failure and chronic diastolic CHF. Patient also has chronic lower extremity edema. She is admitted to the hospital with complaints of worsening shortness of breath and increased lower extremity edema. Currently patient is being diuresed. Patient was also found to be in A. fib with RVR. Serum creatinine was 0.5 on initial admission and increased to 1.8 currently. Patient has an indwelling Claros catheter. She is maintained on IV Lasix and has not had any urine output. Claros catheter was flushed and a bladder scan was also performed which did not show any urine in the bladder. [place] blood pressure has been on the lower side with systolic in the 90s to low 100's. No NSAIDs noted on medications prior to hospitalization. No hydronephrosis noted on ultrasound on 08/14/2021 UA not available Chest x-ray on admission on 525 shows prominent pulmonary vasculature and mild diffuse increase in lung markings bilaterally. Review of Systems As per HPI, other systems negative Past Medical History Past Medical History: COPD, Diabetes Mellitus, Hypertension, Osteoarthritis (OA), Pulmonary Embolus (PE), Skin Disorder, Thyroid Disorder Additional Past Medical History / Comment(s): Morbid obesity, Diabetes mellitus, hypertension, previous history of pulmonary embolism/DVT, osteoarthritis, hypothyroidism, eczema, osteoarthritis of the lower extremities including knees and ankles and the patient has received steroid shots, chronic allergic rhinitis, vertigo, congestive heart failure, COPD, lymphedema, anemia, diabetic neuropathy, History of Any Multi-Drug Resistant Organisms: ESBL, MRSA Date of last positivie culture/infection: 04/27/20 ESBL 06/10/19 MRSA MDRO Source:: ESBL URINE MRSA ABDOMEN Past Surgical History: Breast Surgery, Cholecystectomy, Orthopedic Surgery Additional Past Surgical History / Comment(s): LT WRIST GANGLION CYST. 3 BREAST SURGERIES - BENIGN. RTR. SINUS SURGERY. D&C 07/2014. Past Anesthesia/Blood Transfusion Reactions: Motion Sickness Additional Past Anesthesia/Blood Transfusion Reaction / Comment(s): Grabiel trophobia Past Psychological History: Bipolar, Depression Smoking Status: Never smoker Past Alcohol Use History: None Reported Past Drug Use History: None Reported - Past Family History Mother Family Medical History: Unable to Obtain Father Family Medical History: Unable to Obtain Medications and Allergies Home Medications Medication Instructions Recorded Confirmed Type Escitalopram [Lexapro] 20 mg PO DAILY@1000 07/31/14 08/11/21 History Levothyroxine Sodium [Synthroid] 88 mcg PO DAILY@99907/31/14 08/11/21 History QUEtiapine FUMARATE [SEROquel] 300 mg PO HS@2300 07/31/14 08/11/21 History Linagliptin [Tradjenta] 5 mg PO DAILY@17011/30/15 08/11/21 History fluocinolone acetonide oiL 5 drops BOTH EARS BID PRN 04/16/16 08/11/21 History [fluocinolone acetonide oiL 0.01% (Otic)] Acetaminophen Tab [Tylenol] 500 mg PO Q6H PRN 11/13/19 08/11/21 History Ascorbic Acid [Vitamin C] 500 mg PO DAILY@169911/13/19 08/11/21 History Calcium Carb-Vit D 500Mg-5Mcg 1 tab PO DAILY@17011/13/19 08/11/21 History [Oscal 500+D 5 Mcg (200 Iu)] Docusate [Colace] 100 mg PO DAILY@1000 11/13/19 08/11/21 History Ferrous Sulfate [Iron (65 MG 325 mg PO BID@1000,169911/13/19 08/11/21 History Elemental)] Lidocaine 5% Oint [Xylocaine 5% 1 applic TOPICAL HS PRN 11/13/19 08/11/21 History Oint] Magnesium Hydroxide [Milk of 7,200 mg PO Q48H PRN 11/13/19 08/11/21 History Magnesia Concentrate] Medroxyprogesterone Acetate 10 mg PO DAILY@1000 11/13/19 08/11/21 History [Provera] Menthol [Biofreeze] 1 applic TOPICAL DAILY PRN 11/13/19 08/11/21 History QUEtiapine [SEROquel] 50 mg PO DAILY@1200 11/13/19 08/11/21 History Simethicone [Simethicone Chew] 80 mg PO PC-TID PRN 11/13/19 08/11/21 History Warfarin [Coumadin] 2.5 mg PO SUTUTHSA@17011/13/19 08/11/21 History Warfarin [Coumadin] 5 mg PO MOWEFR@17011/13/19 08/11/21 History bisacodyL 10 mg RECTAL DAILY PRN 11/13/19 08/11/21 History guaiFENesin [guaiFENesin Oral 100 mg PO Q4H PRN 11/13/19 08/11/21 History Solution] LORazepam [Ativan] 1 mg PO BID@1000,1700 #6 tab 11/18/19 08/11/21 Rx Cholecalciferol [Vitamin D3 (25 100 mcg PO DAILY@1200 08/25/20 08/11/21 History Mcg = 1000 Iu)] Folic Acid 0.4 mg PO DAILY@1000 08/25/20 08/11/21 History Furosemide [Lasix] 20 mg PO DAILY@1700 08/25/20 08/11/21 History Lactobacillus Acidophilus 1 cap PO DAILY@1200 08/25/20 08/11/21 History [Acidophilus Probiotic] Acetaminophen [Tylenol] 650 mg PO Q6H PRN 08/11/21 08/11/21 History Artificial Tears-Hypromellose 2 drops BOTH EYES QID PRN 08/11/21 08/11/21 History [Artificial Tear Drops] Calcium Carbonate [Tums] 500 mg PO DAILY@169908/11/21 08/11/21 History Clotrimazole [Clotrimazole AF] 1 applic TOPICAL MOWEFR 08/11/21 08/11/21 History Cyanocobalamin [Vitamin B-12] 500 mcg PO DAILY@17008/11/21 08/11/21 History Furosemide [Lasix] 40 mg PO DAILY@1000 08/11/21 08/11/21 History LORazepam [Ativan] 1 mg PO Q4H PRN 08/11/21 08/11/21 History Metoprolol Tartrate [Lopressor] 12.5 mg PO BID@1000,2300 08/11/21 08/11/21 History Multivitamins, Thera [Multivitamin 1 tab PO DAILY@169908/11/21 08/11/21 History (formulary)] Omeprazole [PriLOSEC] 20 mg PO HS@2200 08/11/21 08/11/21 History Phytonadione [Vitamin K] 5 mg PO ONCE 08/11/21 08/11/21 History Triamcinolone 0.5% Cream [Kenalog 1 applic TOPICAL MOWEFR 08/11/21 08/11/21 History 0.5% Cream] glipiZIDE [Glucotrol] 2.5 mg PO DAILY@1000 08/11/21 08/11/21 History Allergies Allergy/AdvReac Type Severity Reaction Status Date / Time ciprofloxacin [From Cipro] Allergy Severe HIVES Verified 08/11/21 16:05 ciprofloxacin HCl Allergy Severe HIVES Verified 08/11/21 16:05 [From Cipro] clarithromycin [From Biaxin] Allergy Severe HIVES Verified 08/11/21 16:05 codeine Allergy Severe HIVES Verified 08/11/21 16:05 hydrocodone bitartrate Allergy Severe Rash/Hives Verified 08/11/21 16:05 [From Vicodin] alprazolam [From Xanax] Allergy Unknown HIVES Verified 08/11/21 16:05 clindamycin HCl Allergy Unknown HIVES Verified 08/11/21 16:05 [From Cleocin] clindamycin palmitate HCl Allergy Unknown HIVES Verified 08/11/21 16:05 [From Cleocin] clindamycin phosphate Allergy Unknown HIVES Verified 08/11/21 16:05 [From Cleocin] honey Allergy Unknown Anaphylaxis Verified 08/11/21 16:05 metformin Allergy Unknown Anaphylaxis Verified 08/11/21 16:05 doxycycline Allergy Unknown Verified 08/11/21 16:05 duloxetine HCl AdvReac Severe Nausea Verified 08/11/21 16:05 [From Cymbalta] Penicillins AdvReac Severe Abdominal Verified 08/11/21 16:05 Pain Sulfa (Sulfonamide AdvReac Severe HEADACHE Verified 08/11/21 16:05 Antibiotics) buspirone HCl [From BuSpar] AdvReac Unknown Nausea & Verified 08/11/21 16:05 Vomiting cornmeal Allergy Unknown Rash/Hives Uncoded 08/11/21 16:05 Physical Exam Vitals: Vital Signs Temp Pulse Pulse Resp BP Pulse Ox 08/15/21 07:56 100 08/15/21 07:46 100 08/15/21 04:00 97.6 F 102 H 18 112/75 95 08/15/21 00:00 98.0 F 105 H 18 100/62 95 08/14/21 20:00 98.2 F 107 H 18 120/77 93 L 08/14/21 16:00 96.2 F L 100 18 109/65 91 L 08/14/21 12:00 96.9 F L 101 H 18 114/68 92 L 08/14/21 11:12 104 H 08/14/21 11:01 104 H Intake and Output 08/14/21 08/15/21 08/15/21 22:59 06:59 14:59 Intake Total 922.49 120 Output Total 0 100 Balance 922.49 20 Intake: IV 80 .9 80 Intake, IV Titration 242.49 Amount Heparin Sod,Pork in 0.45% 242.49 NaCl 25,000 unit In 0.45 % NaCl 1 250ml.bag @ 5. 151 UNITS/KG/HR 10 mls/hr IV .Q24H [facility] Rx#: [id number] Oral 600 120 Output: Urine 0 100 Uretheral (Claros) 100 Other: Voiding Method Indwelling Catheter Indwelling Catheter Patient is awake, confused, not in any acute distress Examination of the heart S1 and S2 Examination lungs decreased breath sounds at the bases Abdomen is morbidly obese soft nontender Examination lower extremity shows chronic edema. Chronic skin changes noted there is pitting edema noted as well. EMBLEM DRAWER IN exam shows patient is moving all 4 extremities Results - Lab Results Most recent lab results Calcium 9.4 mg/dL (8.4-10.2) 08/15/21 08:30 Magnesium 2.1 mg/dL (1.6-2.3) 08/11/21 15:28 08/14/21 09:16 08/15/21 08:30 Assessment and Plan Assessment: 1. Acute kidney injury, ATN. No evidence of obstruction noted on ultrasound. Patient has an indwelling Claros catheter. Blood pressure is low. I will challenge with 2 50 mL normal saline bolus and I will also give her a dose of midodrine. Continue with indwelling Claros catheter for now. No nephrotoxic agents noted 2. Volume overload with chronic lower extremity edema and chronic hypoxic and hypercapnic respiratory failure. Repeat chest x-ray 3. A. fib with RVR 4. Chronic diastolic heart failure 5. Previous history of PE maintained on long-term anticoagulation 6. Morbid obesity Plan: 2 50 mL normal saline bolus 1 Add midodrine Continue with indwelling Claros catheter Repeat chest x-ray today Repeat labs in a.m. Avoid nephrotoxic agents
--- NOTE | 2021-08-15 11:44 | P.PN ---
Subjective Progress Note Date: 08/15/21 Morbidly obese 65-year-old female patient with chronic hypoxic and hypercapnic respiratory failure and a body mass index of 73 with chronic diastolic heart failure and chronic lower extremity edema in addition to multiple medical problems and comorbidities. The patient is known to have history of diabetes mellitus, hypertension, remote history of pulmonary embolism, hypothyroidism and the patient has been essentially sedentary and bedbound, nonambulatory for many years, a alf resident. The patient comes into the hospital because of worsening shortness of breath and increased lower extremity edema. Things have progressed over the past few weeks. No chest pain. No altered mentation. No angina. She is bedbound. As the patient was being transported, she was also found to be in atrial fibrillation with RVR and this is of a new onset. She is on long-term medical condition with warfarin and her PT/INR is subtherapeutic and the patient is currently on IV heparin. The patient was also started on Cardizem drip at 10 mg an hour and amiodarone drip per protocol currently at 1 mg per minute. Heart rate is under better control for now. She is also on diuretics 40 mg of IV Lasix every 8 hours. 08/13/2021, clinically the same as yesterday. She was taken off the Cardizem drip and the patient is currently switched to oral amiodarone and the cardiac rhythm is still atrial fibrillation. Under better rate control. The patient remains on IV heparin and a PT INR is still subtherapeutic with an INR of 1.6. The patient remains on Lasix 40 mg IV every 8 hours. Urine output is quite low despite her extensive edema and the patient has a dark urine output with a active sediments. UA has not been checked today. BUN is 29 with a creatinine of 0.87. Sodium is at 132 with a potassium level of 4.4. INR is at 1.6. He will was 13.5 with a hemoglobin of 10.9. 08/14/2021, I'm seeing the patient for a follow-up. The patient is going well for now. The patient is clinically stable. However there is an ongoing issue with urine output as the patient is not producing adequate urine output and her urine output has dropped significantly since yesterday without any improvement with Lasix. She continues to have obvious signs of third spacing and volume overload. The creatinine currently is up to 1.4 indicating an underlying acute kidney injury. Based on that, nephrology consultation was requested. Serum bicarb is at 37. Sodium level is at 134. INR is at 1.8. The white cell count is at 9.0 with a hemoglobin of the 11.7. The patient is afebrile. The patient is on 3 L O2 nasal cannula with a pulse ox of 98%. No significant shortness of breath. Her breathing remains shallow pH is awake and alert and she is communicating. She is morbidly obese with a body mass index of 73. Claros catheter is in place. 08/15/2021, the patient continues to be essentially same condition. Urine output is extremely low. The patient was given a bolus of fluid by nephrology. Creatinine is on the rise and today's creatinine is up to 1.82 with a BUN of 46. Urine output is minimal at this point in time and the patient remains on a 40 mg IV every 8 hours. Ultrasound the kidneys was suboptimal because of her body habitus. Sodium is at 133, potassium is 4.3, creatinine is 1.8, INR is at 2.8 with a PT of 28. Nephrology evaluated the patient. The patient has obvious sig ns of volume overload. Midodrine was added to her regimen. Repeat chest x-ray will be done tomorrow. We are avoiding nephrotoxic agents. The patient remains on anticoagulation regarding her previous history of pulmonary embolism. Her INR isn't therapeutic level at 2.8. Objective - Vital Signs Vital signs: Vital Signs Temp 97.6 F 08/15/21 04:00 Pulse 100 08/15/21 07:56 Resp 18 08/15/21 04:00 BP 112/75 08/15/21 04:00 Pulse Ox 95 08/15/21 04:00 FiO2 40 08/11/21 14:53 Intake & Output 08/14/21 08/15/21 08/15/21 18:59 06:59 18:59 Intake Total 922.49 120 Output Total 0 100 Balance 922.49 20 Intake: IV 80 .9 80 Intake, IV Titration 242.49 Amount Heparin Sod,Pork in 0.45% 242.49 NaCl 25,000 unit In 0.45 % NaCl 1 250ml.bag @ 5. 151 UNITS/KG/HR 10 mls/hr IV .Q24H [facility] Rx#: [id number] Oral 600 120 Output: Urine 0 100 Uretheral (Claros) 100 Other: Voiding Method Indwelling Catheter Indwelling Catheter # Bowel Movements 0 - Exam Skin: Good color, texture, turgor. Morbidly obese, calm and comfortable, body mass index of 73, 3 LO2 nasal cannula General: Morbidly obese build and comfortable appearance. Head: Normocephalic, atraumatic. Eyes: Symmetric. Pupils equal round. Ears: Symmetric. Hearing within normal limits. Mouth: Clear. Neck: Supple. Carotid without bruit. Mallampati class IV. Cardiac: Irregular consistent with atrial fibrillation . Cardiac exam revealed the PMI to be normally situated and sized. No significant murmurs appreciated Lungs: Clear anteriorly and posteriorly. The breath sounds markedly diminished in the mid and lower lung his bilaterally. No wheezes. No rhonchi. Crackles are present in the lung bases bilaterally Abdomen: Soft active nontender obese. Extremities: Normal tone. There is significant swelling in lower extremities bilaterally and obvious arthritic changes in the knees bilaterally. There is an area of bruise over the left knee area where the fall and impact occurred. Neurological: Mental status: Alert, cooperative, pleasant. Cranial nerves: Symmetric facial tone and trapezius. Motor: Able to elevate both arms. Active movement at ankles but unable to elevate legs. Sensation: Intact throughout. DTRs: Symmetric and equal throughout. Mobility: Unable to sit or stand at due to knee pain and long-standing disc mobility. - Labs CBC & Chem 7: 08/14/21 09:16 08/15/21 08:30 Labs: Abnormal Lab Results - Last 24 Hours (Table) 08/14/21 08/14/21 08/14/21 Range/Units 09:16 12:00 21:09 MCHC 28.5 L (31.0-37.0) g/dL RDW 16.3 H (11.5-15.5) % PT (9.0-12.0) sec INR (<1.2) APTT (22.0-30.0) sec Sodium (137-145) mmol/L Chloride (98-107) mmol/L Carbon Dioxide (22-30) mmol/L BUN (7-17) mg/dL Creatinine (0.52-1.04) mg/dL POC Glucose (mg/dL) 102 H 122 H (75-99) mg/dL 08/15/21 08/15/21 Range/Units 08:30 08:30 MCHC (31.0-37.0) g/dL RDW (11.5-15.5) % PT 28.3 H (9.0-12.0) sec INR 2.8 H (<1.2) APTT 63.3 H (22.0-30.0) sec Sodium 133 L (137-145) mmol/L Chloride 86 L (98-107) mmol/L Carbon Dioxide 38 H (22-30) mmol/L BUN 46 H (7-17) mg/dL Creatinine 1.82 H (0.52-1.04) mg/dL POC Glucose (mg/dL) (75-99) mg/dL Assessment and Plan Plan: Acute shortness of breath, on top of chronic chronic, with acute worsening secondary to CHF and fluid overload. The chest x-ray is consistent with CHF, cardiomegaly and pulmonary edema and the patient has significant volume overload and increased lower extremity edema consistent with decompensated CHF. The patient was subjected to diuresis and the patient is not producing adequate urine output and there is a component of an acute kidney injury in the creatinin e is up to 1.8 Acute kidney injury, and the patient is oliguric at this point in time. Nephrology is on the case. Consider ATN. CHF probably a combination of biventricular diastolic heart failure with acute decompensation significant volume overload Acute kidney injury New-onset atrial fibrillation with a better rate control and the patient is currently on amiodarone 400 mg by mouth twice a day and metoprolol 25 mg by mouth twice a day. Chronic hypoxic respiratory failure, still on 2 L of oxygen by nasal cannula Morbid obesity with a BMI of 73.5 Chronic hypoxic and hypercapnic respiratory failure with a component of obesity hypoventilation syndrome Hypertension Previous history of pulmonary embolism maintained on long-term and to coagulation with warfarin, PT/INR is subtherapeutic Hypothyroidism, normal TSH, Chronic lower extremity edema Diabetes mellitus care home resident Plan Continue Lasix Midodrine was added The patient was given a bolus of fluid Keep the Claros catheter in place Obtain ultrasound the kidneys and the result was suboptimal because of her body habitus Consult nephrology was completed Oral amiodarone Continue IV heparin until the patient's PT/INR is therapeutic while on Coumadin, for now, INR is at 2.8 Monitor fluid balance, urine output is minimal at this point in time Monitor renal function and electrolytes Strict input output Fluid restriction Echo has shown a moderate LV function impairment with an ejection fraction of 40-45% and there is a moderate pericardial effusion without any signs of tamponade. Noted the patient has history of hypothyroidism and her TSH has been also within normal at 4.5.. Hypothyroid Long-term prognosis poor baseline above-mentioned comorbidities. We'll continue to follow.
[2021-08-15 11:49] LABS: Glucose,Whole Blood 96 mg/dL (75-99)
--- NOTE | 2021-08-15 12:12 | P.PN ---
Subjective HISTORY OF PRESENT ILLNESS: This is a 65-year-old female with a past medical history significant for COPD, hypertension, hypothyroidism, and PE/DVT on Coumadin. Patient was last seen in the office in [address] Carlos. We have been asked to see the patient in consultation for A. fib with RVR. Patient examined at the bedside. The patient apparently was brought to the hospital from [facility] secondary to hypoxia. The patient states when they checked her oxygen saturations on her finger she was found to be 75%. She does report feeling short of breath. She denies any chest pain. She reports some swelling in her lower extremities and states that her leg feels like it is asleep and is requesting to be repositioned in bed. The patient was found to be in A. fib with RVR. The patient denies any history of atrial fibrillation. The patient was started on a Cardizem drip at 10 mg an hour. She remains in atrial fibrillation this morning with a heart rate in the 120s. * EKG reveals A. fib with RVR * Chest xray medical correlation recommended for congestive heart failure * Laboratory data: WBC 10.0. Hemoglobin 11.5. Platelet count 372. Sodium 136. Potassium 3.9. BUN 20. Creatinine 0.52. Troponin negative 1 * Current home cardiac medications include warfarin 5 mg Monday and 2.5 mg Monday, metoprolol tartrate 12.5 mg twice a day, Lasix 40 mg the morning and 20 mg in the afternoon * Most recent echocardiogram obtained in 2018 revealing ejection fraction 60- 65%, mild tricuspid regurgitation 08/13/2021 Patient examined this morning at the bedside. Patient denies chest pain or p ressure. She reports mild shortness of breath. She remains on IV Lasix 40 mg every 8 hours. She remains on IV amiodarone. Patient is receiving Coumadin. She is also on IV heparin until INR is therapeutic. INR this morning is currently pending. Echocardiogram completed revealing ejection fraction 40-45%, severe right ventricular dilatation, mild tricuspid regurgitation, and moderate pericardial effusion. Patient was found to have an elevated d-dimer yesterday 1.58. CTA chest was ordered. Per nursing, this was cancelled as patient was unable to fit in CT machine due to body habitus. 08/14 Patient seen and examined. She denies any chest pain or pressure. Appears confused and asking for help however not able to tell which she needs help with. Denies any shortness breath. Cr noted increased to 1.4 today up from 0.5 on presentation. ProBNP noted to be mild elevated 732 previously. 08/15 Patient seen and examined. Patient somewhat more lethargic and confused today. Creatinine noted to be increased to 1.8. She has not been eating or drinking and per nurse only eating things in applesauce. Has had little to no urine output which is dark appearing. PHYSICAL EXAM: VITAL SIGNS: Reviewed. GENERAL: Well-developed in no acute distress. HEENT: Head is normocephalic. Pupils are equal, round. Sclerae anicteric. Mucous membranes of the mouth are moist. Neck supple. No JVD or thyromegaly LUNGS: Respirations even and unlabored. Lungs diminished to auscultation bilaterally. HEART: Tachycardic. Irregular rate and rhythm. S1 and S2 heard. ABDOMEN: Soft. Nondistended. Nontender. EXTREMITIES: Normal range of motion. No clubbing or cyanosis. Peripheral pulses intact. Bilateral lower extremity edema present NEUROLOGIC: Awake and alert. Confused ASSESSMENT: New onset A. fib with RVR Acute hypoxic respiratory failure Acute on chronic heart failure with preserved ejection fraction COPD Hypertension Hypothyroidism History of PE/DVT on Coumadin Diabetes Moderate pericardial effusion Elevated d-dimer, unable to have CTA due to body habitus Acute kidney injury PLAN: Continue telemetry monitoring Continue oral amio 400mg BID, HRs currently predominantly controlled Contiue metoprolol to 25mg TID Continue Coumadin. Monitor INR Continue Coumadin for INR of 2.0-3.0 D-Dimer elevated. Patient unable to fit in CT machine due to body habitus. Await further recommendations from pulmonary regarding abnormal d-dimer. Patient has not been eating or drinking and increased creatinine noted. Nephrology recommendations appreciated. Give 1 L IV fluid bolus and fluids at 100 mL per hour. Further recommendations pending patient's course Objective - Vital Signs Vital signs: Vital Signs Temp 97.6 F 08/15/21 09:00 Pulse 88 08/15/21 11:47 Resp 18 08/15/21 09:00 BP 95/76 08/15/21 09:00 Pulse Ox 92 L 08/15/21 09:00 FiO2 40 08/11/21 14:53 Intake & Output 08/14/21 08/15/21 08/15/21 18:59 06:59 18:59 Intake Total 922.49 120 250 Output Total 0 100 0 Balance 922.49 20 250 Intake: IV 80 .9 80 Intake, IV Titration 242.49 250 Amount Heparin Sod,Pork in 0.45% 242.49 NaCl 25,000 unit In 0.45 % NaCl 1 250ml.bag @ 5. 151 UNITS/KG/HR 10 mls/hr IV .Q24H [facility] Rx#: [id number] Sodium Chloride 0.9% 250 250 ml @ 999 mls/hr IV .Q16M [facility] Rx#:[id number] Oral 600 120 Output: Urine 0 100 0 Uretheral (Claros) 100 Other: Voiding Method Indwelling Catheter Indwelling Catheter Indwelling Catheter # Bowel Movements 0 - Labs CBC & Chem 7: 08/14/21 09:16 08/15/21 08:30 Labs: Abnormal Lab Results - Last 24 Hours (Table) 08/14/21 08/15/21 08/15/21 Range/Units 21:09 08:30 08:30 PT 28.3 H (9.0-12.0) sec INR 2.8 H (<1.2) APTT 63.3 H (22.0-30.0) sec Sodium 133 L (137-145) mmol/L Chloride 86 L (98-107) mmol/L Carbon Dioxide 38 H (22-30) mmol/L BUN 46 H (7-17) mg/dL Creatinine 1.82 H (0.52-1.04) mg/dL POC Glucose (mg/dL) 122 H (75-99) mg/dL
--- NOTE | 2021-08-15 12:23 | XR ---
EXAMINATION TYPE: XR chest 1V DATE OF EXAM: 08/15/2021 COMPARISON: 08/11/2021 INDICATION: CHF TECHNIQUE: Single frontal view of the chest is obtained. FINDINGS: The heart size is enlarged. The pulmonary vasculature is prominent. Mild diffuse increased lung markings are present. Findings appear similar to comparison. IMPRESSION: 1. Clinical correlation recommended for congestive heart failure.
[2021-08-15] MEDS: SODIUM CHLORIDE 0.9% 1,000 ML IV SCH ×2 (12:26→23:00)
[2021-08-15] MEDS: CHOLECALCIFEROL 25 MCG (1000 IU) TABLET PO SCH (13:21)
[2021-08-15] MEDS: MIDODRINE 5 MG TAB PO SCH ×2 (13:21→17:26)
[2021-08-15] MEDS: QUEtiapine 50 MG TAB PO SCH (13:21)
[2021-08-15] MEDS: LACTOBACILLUS ACIDOPH & BULGAR 1 EACH PACKET PO SCH (13:21)
--- NOTE | 2021-08-15 14:34 | P.PN ---
Subjective Progress Note Date: 08/15/21 This 65-year-old female was recently admitted with CHF and atrial fibrillation cardio following closely. Patient was maintained on IV Cardizem which is currently being transitioned IV amiodarone along with IV heparin. 2-D echo was ordered and pending at this time. Patient continues on 2 L of oxygen via nasal cannula at 90% oxygen pulse ox and continues to report shortness of breath and generalized weakness. Patient is morbidly obese with a BMI of 73.5 and resides in [facility]. Patient's blood pressure is elevated and will initiate Norvasc 10 mg daily and monitor closely. Infectious disease also consulted for a wound on the left hip along with pulmonary for COPD acute exacerbation. Patient denies any chest pain and patient is afebrile. 08/13/2021 Patient is seen today in follow up and continues to report shortness of breath. Cardiology and pulmonary and ID following. Patient is continued on bronchodilators and also continues on IV lasix. IV heparin continued and being started on coumadin. Transitioned to oral amiodarone and cardiology adjusting medications. Patient denies chest pain and is afebrile. 08/14/2021 Patient is seen this am and continues with cardiology and pulmonary following. Neprhology consulted for elevated kidney functions and patient is continued on IV lasix. US renal/bladder and pending. Patient continues with 3L via NC and breathing treatments along with IV heparin and coumadin with pharmacy to dose. Cardiology also following. Patient is afebrile and denies any chest pain. Patient reports not eating or drinking. 08/15/2021 Patient is seen today and continues with worsening renal functions and also some hypotension. Patient was maintained on IV heparin with coumadin and INR is 2.6 today and will dc heparin. Patient with hypotension and adding some midodrine and per nephro will give a 250ml bolus. Off IV lasix for now given worsening renal functions. Poor oral intake and decreased urine output from yesterday. Continue lacy catheter and encouraged oral intake. Patient is more lethargic today as well. Review of systems: Constitutional: reports of fatigue and weakness, no reports of fever, or chills Cardiovascular: No reports of chest pain or palpitations Respiratory: reports of shortness of breath GI: No reports of nausea, no reports of of vomiting, poor appetite : No reports of dysuria or retention, decreased output Neurovascular: reports of generalized weakness All medications have been reviewed Active Medications Acetaminophen (Acetaminophen Tab 325 Mg Tab) 650 mg PO Q6HR PRN PRN Reason: Mild Pain or Fever > 100.5 Albuterol/Ipratropium (Ipratropium-Albuterol 3 Ml Neb) 3 ml INHALATION RT-TID [facility] Last Admin: 08/15/21 11:39 Dose: 3 ml Amiodarone HCl (Amiodarone 200 Mg Tab) 400 mg PO BID [facility] Last Admin: 08/15/21 09:06 Dose: 400 mg Ascorbic Acid (Ascorbic Acid 500 Mg Tab) 500 mg PO DAILY@1700 [facility] Last Admin: 08/14/21 16:38 Dose: 500 mg Bisacodyl (Bisacodyl 10 Mg Supp) 10 mg RECTAL DAILY PRN PRN Reason: Constipation Calcium Carbonate (Calcium Carb-Vit D 500 Mg-5 Mcg Tab) 1 each PO DAILY@1700 [facility] Last Admin: 08/14/21 16:38 Dose: 1 each Calcium Carbonate/Glycine (Calcium Carbonate 500 Mg Chewable) 500 mg PO DAILY@1700 [facility] Last Admin: 08/14/21 16:38 Dose: 500 mg Cholecalciferol (Cholecalciferol 25 Mcg (1000 Iu) Tablet) 100 mcg PO DAILY@1200 [facility] Last Admin: 08/15/21 13:21 Dose: 100 mcg Cyanocobalamin (Cyanocobalamin 500 Mcg Tab) 500 mcg PO DAILY@1700 [facility] Last Admin: 08/14/21 16:38 Dose: 500 mcg Docusate Sodium (Docusate 100 Mg Cap) 100 mg PO DAILY@1000 [facility] Last Admin: 08/15/21 09:06 Dose: 100 mg Escitalopram Oxalate (Escitalopram 20 Mg Tab) 20 mg PO DAILY@1000 [facility] Last Admin: 08/15/21 09:06 Dose: 20 mg Ferrous Sulfate (Ferrous Sulfate 325 Mg Tab) 325 mg PO BID@1000,1700 [facility] Last Admin: 08/15/21 09:06 Dose: 325 mg Folic Acid (Folic Acid 1 Mg Tab) 0.5 mg PO DAILY@1000 [facility] Last Admin: 08/15/21 09:06 Dose: 0.5 mg Glipizide (Glipizide 2.5 Mg Tab) 2.5 mg PO DAILY@1000 [facility] Last Admin: 08/15/21 09:06 Dose: 2.5 mg Guaifenesin (Guaifenesin Syrup 100mg/5ml 200 Mg/10 Ml Cup) 100 mg PO Q4H PRN PRN Reason: Cough Sodium Chloride (Saline 0.9%) 1,000 mls @ 100 mls/hr IV .Q10H [facility] Last Admin: 08/15/21 12:26 Dose: 100 mls/hr Insulin Aspart (Insulin Aspart (Novolog) 100 Unit/Ml Vial) 0 unit SQ ACHS [facility]; Protocol Last Admin: 08/15/21 13:19 Dose: Not Given Lactobacillus Acidoph/Bulgaricus (Lactobacillus Acidoph & Bulgar 1 Each Packet) 1 each PO DAILY@1200 [facility] Last Admin: 08/15/21 13:21 Dose: 1 each Levothyroxine Sodium (Levothyroxine 88 Mcg Tab) 88 mcg PO DAILY@1000 [facility] Last Admin: 08/15/21 09:06 Dose: 88 mcg Lidocaine (Lidocaine 5% Ointment 50 Gm Jar) 1 applic TOPICAL HS PRN PRN Reason: WOUND PAIN Linagliptin (Linagliptin 5 Mg Tablet) 5 mg PO DAILY@1700 [facility] Last Admin: 08/14/21 16:38 Dose: 5 mg Lorazepam (Lorazepam 1 Mg Tab) 1 mg PO Q4H PRN PRN Reason: Anxiety Lorazepam (Lorazepam 1 Mg Tab) 1 mg PO BID@1000,1700 [facility] Last Admin: 08/15/21 09:06 Dose: 1 mg Magnesium Hydroxide (Magnesium Hydroxide 2,400 Mg/10 Ml Cup) 2,400 mg PO Q48H PRN PRN Reason: Constipation Methyl Salicylate (Methyl Salicylate-Menthol Oint (3 Oz Tube)) 1 applic TOPICAL DAILY PRN PRN Reason: pain Metoprolol Tartrate (Metoprolol Tartrate 25 Mg Tab) 25 mg PO TID [facility] Last Admin: 08/15/21 09:06 Dose: 25 mg Midodrine (Midodrine 5 Mg Tab) 5 mg PO AC-TID [facility] Last Admin: 08/15/21 13:21 Dose: 5 mg Miscellaneous Information (Warfarin Per Pharmacy) 1 each MISCELLANE DIRECTED PRN; Protocol PRN Reason: Per Protocol Multivitamins (Multivitamins, Thera 1 Each Tab) 1 each PO DAILY@1700 [facility] Last Admin: 08/14/21 16:38 Dose: 1 each Naloxone HCl (Naloxone 0.4 Mg/Ml 1 Ml Vial) 0.2 mg IV Q2M PRN PRN Reason: Opioid Reversal Nystatin (Nystatin 100,000 Unit/Gm Powd 15 Gm) 1 applic TOPICAL BID [facility]; Protocol Last Admin: 08/15/21 09:08 Dose: 1 applic Nystatin (Nystatin 100,000unit/Gm Cream 30 Gm Tube) 1 applic TOPICAL BID [facility] Last Admin: 08/15/21 09:07 Dose: 1 applic Pantoprazole Sodium (Pantoprazole 40 Mg Tablet) 40 mg PO HS@2200 [facility] Last Admin: 08/14/21 21:57 Dose: 40 mg Quetiapine Fumarate (Quetiapine 50 Mg Tab) 50 mg PO DAILY@1200 [facility] Last Admin: 08/15/21 13:21 Dose: 50 mg Quetiapine Fumarate (Quetiapine 100 Mg Tab) 300 mg PO HS@2300 [facility] Last Admin: 08/14/21 21:57 Dose: 300 mg Simethicone (Simethicone 80 Mg Chewable) 80 mg PO PC-TID PRN PRN Reason: UPPERGASTRIC DISTRESS Triamcinolone Acetonide (Triamcinolone 0.1% Cream 80 Gm Tube) 1 applic TOPICAL BID [facility] Last Admin: 08/15/21 09:07 Dose: 1 applic Warfarin Sodium (Warfarin 1 Mg Tab) 1 mg PO ONCE ONE Stop: 08/15/21 18:01 PHYSICAL EXAMINATION: GENERAL: The patient is alert and oriented x3, lethargic morbidly obese Well developed, well nourished. HEENT: Pupils are round and equally reacting to light. EOMI. no scleral icterus. No conjunctival pallor. Normocephalic, atraumatic. No pharyngeal erythema. No thyromegaly. CARDIOVASCULAR: S1 and S2 muffled PULMONARY: diminished breath sounds bilaterally with some crackles and scattered rhonchi noted. ABDOMEN: soft. Nontender on exam. obese. non-distended, normoactive bowel sounds. No palpable organomegaly. MUSCULOSKELETAL: No joint swelling or deformity. EXTREMITIES: No cyanosis, clubbing, or pedal edema. Generalized edema noted t hroughout NEUROLOGICAL: Gross neurological examination did not reveal any focal deficits. Diffuse weakness SKIN: No rashes. Assessment: Atrial fibrillation with RVR new onset Congestive heart failure, acute exacerbation with preserved EF Morbid obesity with a BMI of 73.5 acute kidney injury COPD, acute exacerbation Diabetes mellitus, type 2 History of PE HIstory of esbl, MRSA Left hip wound GI prophylaxis DVT prophylaxis Full code Plan: Recommend to continue with current medications and management with cardiology following. Infectious disease following for left hip wound and will continue Local wound care and frequent position changes. Pulmonary also following and will continue on breathing inhalational treatments. Will discontinu IV heparinand continue with Coumadin. Transitioned to oral amiodarone. Will follow up and recommend repeat labs and close monitoring. Recommend continuing with telemetry monitoring. hypotensive today and per nephro giving a 250 IV fluid and adding midodrine. Patient is a resident at [facility] and will be returning there once stabilized and discharged. Due to multiple complex medical issues, prognosis is guarded. The impression and plan of care has been dictated by Shefali Becerra, nurse practitioner as directed. Dr. Mari MD I have performed a history and examination and MDM of this patient, discussed the same with the dictator, and agree with the dictator's assessment and plan as written ,documented as a scribe. Based on total visit time, I have performed more than 50% of the visit. Any additional findings or plans will be noted. Objective - Vital Signs Vital signs: Vital Signs Temp 97.6 F 08/15/21 04:00 Pulse 100 08/15/21 07:56 Resp 18 08/15/21 04:00 BP 112/75 08/15/21 04:00 Pulse Ox 95 08/15/21 04:00 FiO2 40 08/11/21 14:53 Intake & Output 08/14/21 08/15/21 08/15/21 18:59 06:59 18:59 Intake Total 922.49 120 Output Total 0 100 Balance 922.49 20 Intake: IV 80 .9 80 Intake, IV Titration 242.49 Amount Heparin Sod,Pork in 0.45% 242.49 NaCl 25,000 unit In 0.45 % NaCl 1 250ml.bag @ 5. 151 UNITS/KG/HR 10 mls/hr IV .Q24H [facility] Rx#: [id number] Oral 600 120 Output: Urine 0 100 Uretheral (Lacy) 100 Other: Voiding Method Indwelling Catheter Indwelling Catheter # Bowel Movements 0 - Labs CBC & Chem 7: 08/14/21 09:16 08/15/21 08:30 Labs: Abnormal Lab Results - Last 24 Hours (Table) 08/14/21 08/14/21 08/15/21 Range/Units 12:00 21:09 08:30 PT (9.0-12.0) sec INR (<1.2) APTT (22.0-30.0) sec Sodium 133 L (137-145) mmol/L Chloride 86 L (98-107) mmol/L Carbon Dioxide 38 H (22-30) mmol/L BUN 46 H (7-17) mg/dL Creatinine 1.82 H (0.52-1.04) mg/dL POC Glucose (mg/dL) 102 H 122 H (75-99) mg/dL 08/15/21 Range/Units 08:30 PT 28.3 H (9.0-12.0) sec INR 2.8 H (<1.2) APTT 63.3 H (22.0-30.0) sec Sodium (137-145) mmol/L Chloride (98-107) mmol/L Carbon Dioxide (22-30) mmol/L BUN (7-17) mg/dL Creatinine (0.52-1.04) mg/dL POC Glucose (mg/dL) (75-99) mg/dL
[2021-08-15 16:27] LABS: Glucose,Whole Blood 92 mg/dL (75-99)
[2021-08-15] MEDS: CYANOCOBALAMIN 500 MCG TAB PO SCH (17:26)
[2021-08-15] MEDS: CALCIUM CARB-VIT D 500 MG-5 MCG TAB PO SCH (17:26)
[2021-08-15] MEDS: ASCORBIC ACID 500 MG TAB PO SCH (17:26)
[2021-08-15] MEDS: CALCIUM CARBONATE 500 MG CHEWABLE PO SCH (17:26)
[2021-08-15] MEDS: MULTIVITAMINS, THERA 1 EACH TAB PO SCH (17:26)
[2021-08-15] MEDS: LINAGLIPTIN 5 MG TABLET PO SCH (17:26)
[2021-08-15] MEDS ORDERED: WARFARIN 1 MG TAB PO ONE (18:00)
[2021-08-15 20:35] LABS: Glucose,Whole Blood 103 mg/dL (75-99)
[2021-08-15] MEDS: PANTOPRAZOLE 40 MG TABLET PO SCH (20:47)
[2021-08-15 23:07] LABS: Glucose,Whole Blood 111 mg/dL (75-99)
[2021-08-15 23:26] LABS: Glucose,Whole Blood 104 mg/dL (75-99)
[2021-08-15 23:33] LABS: ABG PH 7.33 (7.35-7.45); ABG PO2 92 mmHg (83-108); ABG TCO2 42 mmol/L (19-24); Allen Test Performed? Yes
[2021-08-15] MEDS: QUEtiapine 100 MG TAB PO SCH (23:35)
[2021-08-15 23:36] LABS: ABG HCO3 40 mmol/L (21-25); ABG Oxygen Saturation 96.2 % (94-97); ABG PCO2 76 mmHg (35-45)
[2021-08-16 00:30] LABS: Calcium 9.8 mg/dL (8.4-10.2)
[2021-08-16 00:44] LABS: Potassium 5.8 mmol/L (3.5-5.1)
[2021-08-16 06:13] LABS: Glucose,Whole Blood 75 mg/dL (75-99)
[2021-08-16] MEDS: INSULIN ASPART (NovoLOG) 100 UNIT/ML VIAL SQ SCH ×4 (06:14→21:26)
[2021-08-16] MEDS: MIDODRINE 5 MG TAB PO SCH ×3 (06:18→17:30)
[2021-08-16] MEDS: DOCUSATE 100 MG CAP PO SCH (08:01)
[2021-08-16] MEDS: ESCITALOPRAM 20 MG TAB PO SCH (08:01)
[2021-08-16] MEDS: AMIODARONE 200 MG TAB PO SCH ×2 (08:01→21:30)
[2021-08-16] MEDS: METOPROLOL TARTRATE 25 MG TAB PO SCH ×3 (08:01→21:30)
[2021-08-16] MEDS: LEVOTHYROXINE 88 MCG TAB PO SCH (08:01)
[2021-08-16] MEDS: FERROUS SULFATE 325 MG TAB PO SCH ×2 (08:01→17:30)
[2021-08-16] MEDS: FOLIC ACID 1 MG TAB PO SCH (08:01)
[2021-08-16] MEDS: NYSTATIN 100,000UNIT/GM CREAM 30 GM TUBE TOPICAL SCH ×2 (08:03→21:30)
[2021-08-16] MEDS: IPRATROPIUM-ALBUTEROL 3 ML NEB INHALATION SCH ×3 (08:06→19:46)
[2021-08-16 08:32] LABS: Prothrombin Time 40.1 sec (9.0-12.0)
[2021-08-16 08:39] LABS: Calcium 9.3 mg/dL (8.4-10.2); Potassium 4.3 mmol/L (3.5-5.1)
[2021-08-16] MEDS ORDERED: FUROSEMIDE 10 MG/ML 10 ML VIAL IV STA (09:34)
[2021-08-16] MEDS: NYSTATIN 100,000 UNIT/GM POWD 15 GM TOPICAL SCH ×2 (10:23→21:30)
[2021-08-16] MEDS: TRIAMCINOLONE 0.1% CREAM 80 GM TUBE TOPICAL SCH ×2 (10:23→21:30)
--- NOTE | 2021-08-16 10:24 | P.PN ---
Subjective Patient is seen for follow-up for acute kidney injury. Renal function has been worsening She has an indwelling Claros catheter with no significant urine output. Blood pressure had been running low. Patient was started on IV fluids yesterday as well as midodrine Urine output remains low. Patient is currently maintained on BiPAP. She has been confused. Patient had CO2 retention and respiratory acidosis. Objective - Vital Signs Vital signs: Vital Signs Temp 97.9 F 08/16/21 07:58 Pulse 92 08/16/21 08:16 Resp 31 H 08/16/21 07:58 BP 140/72 08/16/21 07:58 Pulse Ox 91 L 08/16/21 07:58 FiO2 40 08/16/21 08:06 Intake & Output 08/15/21 08/16/21 08/16/21 18:59 06:59 18:59 Intake Total 750 Output Total 0 50 Balance 750 -50 Intake: Intake, IV Titration 750 Amount Sodium Chloride 0.9% 1, 500 000 ml @ 100 mls/hr IV . Q10H [facility] Rx#:[id number] Sodium Chloride 0.9% 250 250 ml @ 999 mls/hr IV .Q16M [facility] Rx#:[id number] Output: Urine 0 50 Uretheral (Claros) 50 Other: Voiding Method Indwelling Catheter Indwelling Catheter - Exam Awake, comfortable, maintained on BiPAP Patient has been confused Examination of the heart S1 and S2 Examination lungs bilateral breath sounds are heard Abdomen is soft obese Examination lower extremity shows significant chronic skin changes and significant chronic edema - Labs CBC & Chem 7: 08/14/21 09:16 08/16/21 07:58 Labs: Abnormal Lab Results - Last 24 Hours (Table) 08/15/21 08/15/21 08/15/21 Range/Units 20:33 23:06 23:24 PT (9.0-12.0) sec INR (<1.2) ABG pH (7.35-7.45) ABG pCO2 (35-45) mmHg ABG HCO3 (21-25) mmol/L ABG Total CO2 (19-24) mmol/L Sodium (137-145) mmol/L Potassium (3.5-5.1) mmol/L Chloride (98-107) mmol/L Carbon Dioxide (22-30) mmol/L BUN (7-17) mg/dL Creatinine (0.52-1.04) mg/dL Glucose (74-99) mg/dL POC Glucose (mg/dL) 103 H 111 H 104 H (75-99) mg/dL 08/15/21 08/15/21 08/16/21 Range/Units 23:31 23:49 07:58 PT (9.0-12.0) sec INR (<1.2) ABG pH 7.33 L (7.35-7.45) ABG pCO2 76 H* (35-45) mmHg ABG HCO3 40 H* (21-25) mmol/L ABG Total CO2 42 H (19-24) mmol/L Sodium 132 L 133 L (137-145) mmol/L Potassium 5.8 H (3.5-5.1) mmol/L Chloride 90 L 87 L (98-107) mmol/L Carbon Dioxide 35 H 37 H (22-30) mmol/L BUN 52 H 50 H (7-17) mg/dL Creatinine 1.73 H 2.03 H (0.52-1.04) mg/dL Glucose 105 H 101 H (74-99) mg/dL POC Glucose (mg/dL) (75-99) mg/dL 08/16/21 Range/Units 07:58 PT 40.1 H (9.0-12.0) sec INR 4.0 H (<1.2) ABG pH (7.35-7.45) ABG pCO2 (35-45) mmHg ABG HCO3 (21-25) mmol/L ABG Total CO2 (19-24) mmol/L Sodium (137-145) mmol/L Potassium (3.5-5.1) mmol/L Chloride (98-107) mmol/L Carbon Dioxide (22-30) mmol/L BUN (7-17) mg/dL Creatinine (0.52-1.04) mg/dL Glucose (74-99) mg/dL POC Glucose (mg/dL) (75-99) mg/dL Assessment and Plan Assessment: 1. Acute kidney injury, ATN. No evidence of obstruction noted on ultrasound. Patient has an indwelling Claros catheter. Blood pressure is low. Status post IV fluid boluses and currently maintained on IV fluids at 100 mL an hour with no improvement in urine output. Continue with indwelling Claros catheter for now. No nephrotoxic agents noted. IV Lasix 1 to help with urine output. 2. Volume overload with chronic lower extremity edema and chronic hypoxic and hypercapnic respiratory failure. Repeat chest x-ray shows evidence of pulmonary vascular congestion 3. A. fib with RVR 4. Chronic diastolic heart failure 5. Previous history of PE maintained on long-term anticoagulation 6. Morbid obesity Plan: Decrease IV fluids IV Lasix 80 mg 1 Continue with Claros catheter Continue with BiPAP
[2021-08-16] MEDS: LORazepam 1 MG TAB PO SCH ×2 (11:05→17:30)
--- NOTE | 2021-08-16 11:40 | P.PN ---
Subjective Progress Note Date: 08/16/21 Morbidly obese 65-year-old female patient with chronic hypoxic and hypercapnic respiratory failure and a body mass index of 73 with chronic diastolic heart failure and chronic lower extremity edema in addition to multiple medical problems and comorbidities. The patient is known to have history of diabetes mellitus, hypertension, remote history of pulmonary embolism, hypothyroidism and the patient has been essentially sedentary and bedbound, nonambulatory for many years, a [facility] resident. The patient comes into the hospital because of worsening shortness of breath and increased lower extremity edema. Things have progressed over the past few weeks. No chest pain. No altered mentation. No angina. She is bedbound. As the patient was being transported, she was also found to be in atrial fibrillation with RVR and this is of a new onset. She is on long-term medical condition with warfarin and her PT/INR is subtherapeutic and the patient is currently on IV heparin. The patient was also started on Cardizem drip at 10 mg an hour and amiodarone drip per protocol currently at 1 mg per minute. Heart rate is under better control for now. She is also on diuretics 40 mg of IV Lasix every 8 hours. 08/13/2021, clinically the same as yesterday. She was taken off the Cardizem drip and the patient is currently switched to oral amiodarone and the cardiac rhythm is still atrial fibrillation. Under better rate control. The patient remains on IV heparin and a PT INR is still subtherapeutic with an INR of 1.6. The patient remains on Lasix 40 mg IV every 8 hours. Urine output is quite low despite her extensive edema and the patient has a dark urine output with a active sediments. UA has not been checked today. BUN is 29 with a creatinine of 0.87. Sodium is at 132 with a potassium level of 4.4. INR is at 1.6. He will was 13.5 with a hemoglobin of 10.9. 08/14/2021, I'm seeing the patient for a follow-up. The patient is going well for now. The patient is clinically stable. However there is an ongoing issue with urine output as the patient is not producing adequate urine output and her urine output has dropped significantly since yesterday without any improvement with Lasix. She continues to have obvious signs of third spacing and volume overload. The creatinine currently is up to 1.4 indicating an underlying acute kidney injury. Based on that, nephrology consultation was requested. Serum bicarb is at 37. Sodium level is at 134. INR is at 1.8. The white cell count is at 9.0 with a hemoglobin of the 11.7. The patient is afebrile. The patient is on 3 L O2 nasal cannula with a pulse ox of 98%. No significant shortness of breath. Her breathing remains shallow pH is awake and alert and she is communicating. She is morbidly obese with a body mass index of 73. Claros catheter is in place. 08/15/2021, the patient continues to be essentially same condition. Urine output is extremely low. The patient was given a bolus of fluid by nephrology. Creatinine is on the rise and today's creatinine is up to 1.82 with a BUN of 46. Urine output is minimal at this point in time and the patient remains on a 40 mg IV every 8 hours. Ultrasound the kidneys was suboptimal because of her body habitus. Sodium is at 133, potassium is 4.3, creatinine is 1.8, INR is at 2.8 with a PT of 28. Nephrology evaluated the patient. The patient has obvious sig ns of volume overload. Midodrine was added to her regimen. Repeat chest x-ray will be done tomorrow. We are avoiding nephrotoxic agents. The patient remains on anticoagulation regarding her previous history of pulmonary embolism. Her INR isn't therapeutic level at 2.8. 08/16/2021, the patient is doing for as the patient is not producing any urine output still. The patient was started on IV fluids and the patient is currently receiving normal saline today to 100 mL an hour in combination with Midrin. She'll be given a dose of Lasix high-dose by nephrology to evaluate for any urine output activity. She continues to be swollen and third spacing of the chest x-ray from yesterday showed ongoing pulmonary edema. The patient overnight became more lethargic. Her blood gases was done that showed a pH of 7.33 with a pCO2 of 76 and pO2 of 92. Based on that, the patient was placed on a BiPAP and currently is on a BiPAP at a pressure of 12/5 cm of water with an FiO2 of 40%. Her electrodes from today shows a sodium low level of 133, potassium of 4.3, BUN is a 50 with a creatinine of 2.03 and a calcium level is at 9.3. INR today is at 4.0. Clinically, the patient is confused. She is a full code still. She has extensive edema in all 4 extremities. She has a Claros catheter in place. Output is minimal at this point in time. Objective - Vital Signs Vital signs: Vital Signs Temp 97.9 F 08/16/21 07:58 Pulse 92 08/16/21 08:16 Resp 31 H 08/16/21 07:58 BP 140/72 08/16/21 07:58 Pulse Ox 91 L 08/16/21 07:58 FiO2 40 08/16/21 08:06 Intake & Output 08/15/21 08/16/21 08/16/21 18:59 06:59 18:59 Intake Total 750 Output Total 0 50 Balance 750 -50 Intake: Intake, IV Titration 750 Amount Sodium Chloride 0.9% 1, 500 000 ml @ 100 mls/hr IV . Q10H [facility] Rx#:[id number] Sodium Chloride 0.9% 250 250 ml @ 999 mls/hr IV .Q16M [facility] Rx#:[id number] Output: Urine 0 50 Uretheral (Claros) 50 Other: Voiding Method Indwelling Catheter Indwelling Catheter - Exam Skin: Good color, texture, turgor. Morbidly obese, calm and comfortable, body mass index of 73, patient is confused. The patient on a BiPAP at a pressure of 12/5 cm of water with an FiO2 of 40%. General: Morbidly obese build and comfortable appearance. Head: Normocephalic, atraumatic. Eyes: Symmetric. Pupils equal round. Ears: Symmetric. Hearing within normal limits. Mouth: Clear. Neck: Supple. Carotid without bruit. Mallampati class IV. Cardiac: Irregular consistent with atrial fibrillation . Cardiac exam revealed the PMI to be normally situated and sized. No significant murmurs appreciated Lungs: Clear anteriorly and posteriorly. The breath sounds markedly diminished in the mid and lower lung his bilaterally. No wheezes. No rhonchi. Crackles are present in the lung bases bilaterally Abdomen: Soft active nontender obese. Extremities: Normal tone. There is significant swelling in lower extremities bilaterally and obvious arthritic changes in the knees bilaterally. There is an area of bruise over the left knee area where the fall and impact occurred. Neurological: Mental status: Alert, confused, neurologic exam is nonfocal Cranial nerves: Symmetric facial tone and trapezius. Clinically confused Motor: Able to elevate both arms. Active movement at ankles but unable to elevate legs. Sensation: Intact throughout. DTRs: Symmetric and equal throughout. Mobility: Unable to sit or stand at due to knee pain and long-standing disc mobility. - Labs CBC & Chem 7: 08/14/21 09:16 08/16/21 07:58 Labs: Abnormal Lab Results - Last 24 Hours (Table) 08/15/21 08/15/21 08/15/21 Range/Units 20:33 23:06 23:24 PT (9.0-12.0) sec INR (<1.2) ABG pH (7.35-7.45) ABG pCO2 (35-45) mmHg ABG HCO3 (21-25) mmol/L ABG Total CO2 (19-24) mmol/L Sodium (137-145) mmol/L Potassium (3.5-5.1) mmol/L Chloride (98-107) mmol/L Carbon Dioxide (22-30) mmol/L BUN (7-17) mg/dL Creatinine (0.52-1.04) mg/dL Glucose (74-99) mg/dL POC Glucose (mg/dL) 103 H 111 H 104 H (75-99) mg/dL 08/15/21 08/15/21 08/16/21 Range/Units 23:31 23:49 07:58 PT (9.0-12.0) sec INR (<1.2) ABG pH 7.33 L (7.35-7.45) ABG pCO2 76 H* (35-45) mmHg ABG HCO3 40 H* (21-25) mmol/L ABG Total CO2 42 H (19-24) mmol/L Sodium 132 L 133 L (137-145) mmol/L Potassium 5.8 H (3.5-5.1) mmol/L Chloride 90 L 87 L (98-107) mmol/L Carbon Dioxide 35 H 37 H (22-30) mmol/L BUN 52 H 50 H (7-17) mg/dL Creatinine 1.73 H 2.03 H (0.52-1.04) mg/dL Glucose 105 H 101 H (74-99) mg/dL POC Glucose (mg/dL) (75-99) mg/dL 08/16/21 Range/Units 07:58 PT 40.1 H (9.0-12.0) sec INR 4.0 H (<1.2) ABG pH (7.35-7.45) ABG pCO2 (35-45) mmHg ABG HCO3 (21-25) mmol/L ABG Total CO2 (19-24) mmol/L Sodium (137-145) mmol/L Potassium (3.5-5.1) mmol/L Chloride (98-107) mmol/L Carbon Dioxide (22-30) mmol/L BUN (7-17) mg/dL Creatinine (0.52-1.04) mg/dL Glucose (74-99) mg/dL POC Glucose (mg/dL) (75-99) mg/dL Assessment and Plan Plan: Acute shortness of breath, on top of chronic chronic, with acute worsening secondary to CHF and fluid overload. The chest x-ray is consistent with CHF, cardiomegaly and pulmonary edema and the patient has significant volume overload and increased lower extremity edema consistent with decompensated CHF. The patient was subjected to diuresis and the patient is not producing adequate urine output and there is a component of an acute kidney injury in the creatinine is up to 2.03. The findings on the case and the patient is being challenged with fluids and diuretics. Meanwhile, the patient became more lethargic and a blood gases from yesterday showed a component of an acute on top of chronic hypercapnic respiratory failure patient is currently on a BiPAP. Patient is on a BiPAP pressure of 12/5 cm of water with an FiO2 of 40%. Acute on chronic hypoxic/hypercapnic respiratory failure currently on BiPAP and a chest x-ray still showing pulmonary edema and volume overload Acute kidney injury, and the patient is oliguric at this point in time. Nephrology is on the case. Consider ATN. Minimal urine output still. The patient is being challenged with a combination of fluid and diuretics. CHF probably a combination of biventricular diastolic heart failure with acute decompensation significant volume overload Acute kidney injury New-onset atrial fibrillation with a better rate control and the patient is currently on amiodarone 400 mg by mouth twice a day and metoprolol 25 mg by mouth twice a day. Chronic hypoxic respiratory failure, still on 2 L of oxygen by nasal cannula Morbid obesity with a BMI of 73.5 Chronic hypoxic and hypercapnic respiratory failure with a component of obesity hypoventilation syndrome Hypertension Previous history of pulmonary embolism maintained on long-term and to coagulation with warfarin, PT/INR is subtherapeutic Hypothyroidism, normal TSH, Chronic lower extremity edema Diabetes mellitus group home resident Plan Continue IV fluid challenge Continue Lasix 80 mg 1 Midodrine was added by nephrology Creatinine is up to 2.03 Monitor renal function and keep the Claros catheter in place Continue BiPAP the same pressure of 12/5 cm of water May need hemodialysis if no improvement. This will be discussed further with nephrology. Echo has shown a moderate LV function impairment with an ejection fraction of 40-45% and there is a moderate pericardial effusion without any signs of tamponade. Noted the patient has history of hypothyroidism and her TSH has been also within normal at 4.5.. Long-term prognosis poor baseline above-mentioned comorbidities. We'll continue to follow. Recommended changing the CODE STATUS
[2021-08-16 11:47] LABS: Glucose,Whole Blood 100 mg/dL (75-99)
[2021-08-16] MEDS: QUEtiapine 50 MG TAB PO SCH (12:50)
[2021-08-16] MEDS: CHOLECALCIFEROL 25 MCG (1000 IU) TABLET PO SCH (12:50)
[2021-08-16] MEDS: LACTOBACILLUS ACIDOPH & BULGAR 1 EACH PACKET PO SCH (12:51)
[2021-08-16] MEDS: SODIUM CHLORIDE 0.9% 1,000 ML IV SCH (12:54)
--- NOTE | 2021-08-16 15:03 | P.PN ---
Subjective Progress Note Date: 08/16/21 This 65-year-old female was recently admitted with CHF and atrial fibrillation cardio following closely. Patient was maintained on IV Cardizem which is currently being transitioned IV amiodarone along with IV heparin. 2-D echo was ordered and pending at this time. Patient continues on 2 L of oxygen via nasal cannula at 90% oxygen pulse ox and continues to report shortness of breath and generalized weakness. Patient is morbidly obese with a BMI of 73.5 and resides in [place] Patient's blood pressure is elevated and will initiate Norvasc 10 mg daily and monitor closely. Infectious disease also consulted for a wound on the left hip along with pulmonary for COPD acute exacerbation. Patient denies any chest pain and patient is afebrile. 08/13/2021 Patient is seen today in follow up and continues to report shortness of breath. Cardiology and pulmonary and ID following. Patient is continued on bronchodilators and also continues on IV lasix. IV heparin continued and being started on coumadin. Transitioned to oral amiodarone and cardiology adjusting medications. Patient denies chest pain and is afebrile. 08/14/2021 Patient is seen this am and continues with cardiology and pulmonary following. Neprhology consulted for elevated kidney functions and patient is continued on IV lasix. US renal/bladder and pending. Patient continues with 3L via NC and breathing treatments along with IV heparin and coumadin with pharmacy to dose. Cardiology also following. Patient is afebrile and denies any chest pain. Patient reports not eating or drinking. 08/15/2021 Patient is seen today and continues with worsening renal functions and also some hypotension. Patient was maintained on IV heparin with coumadin and INR is 2.6 today and will dc heparin. Patient with hypotension and adding some midodrine and per nephro will give a 250ml bolus. Off IV lasix for now given worsening renal functions. Poor oral intake and decreased urine output from yesterday. Continue lacy catheter and encouraged oral intake. Patient is more lethargic today as well. 08/16/2021 Patient is seen in follow-up currently maintained on BiPAP and continues with shortness of breath. Multiple medical consultations following including pulmonary, nephrology, cardiology and patient continues with volume overload and is being started on IV Lasix. Patient with worsening kidney functions and decreased urine output although bladder and abdomen ultrasound showed no evidence of hydronephrosis. Patient also transition to Coumadin and INR is 4.0 and recommend to hold Coumadin and repeat labs. Sodium is 133 with a potassium of 4.3, BUN is 50, creatinine is 2.03. Patient not really tolerating any oral diet and difficult given the BiPAP is continuous at this time. Patient is anxious with family friend at the bedside. Patient is afebrile and denies any chest pain. Patient to continue with local wound care per ID with frequent position changes as well. Review of systems: Constitutional: reports of fatigue and weakness, no reports of fever, or chills Cardiovascular: No reports of chest pain or palpitations Respiratory: reports of worsening shortness of breath GI: No reports of nausea, no reports of of vomiting, poor appetite : No reports of dysuria or retention, decreased output Neurovascular: reports of generalized weakness All medications have been reviewed Active Medications Acetaminophen (Acetaminophen Tab 325 Mg Tab) 650 mg PO Q6HR PRN PRN Reason: Mild Pain or Fever > 100.5 Albuterol/Ipratropium (Ipratropium-Albuterol 3 Ml Neb) 3 ml INHALATION RT-TID [facility] Last Admin: 08/16/21 11:55 Dose: 3 ml Amiodarone HCl (Amiodarone 200 Mg Tab) 400 mg PO BID [facility] Last Admin: 08/16/21 08:01 Dose: 400 mg Ascorbic Acid (Ascorbic Acid 500 Mg Tab) 500 mg PO DAILY@1700 [facility] Last Admin: 08/15/21 17:26 Dose: 500 mg Bisacodyl (Bisacodyl 10 Mg Supp) 10 mg RECTAL DAILY PRN PRN Reason: Constipation Calcium Carbonate (Calcium Carb-Vit D 500 Mg-5 Mcg Tab) 1 each PO DAILY@1700 [facility] Last Admin: 08/15/21 17:26 Dose: 1 each Calcium Carbonate/Glycine (Calcium Carbonate 500 Mg Chewable) 500 mg PO DAILY@1700 [facility] Last Admin: 08/15/21 17:26 Dose: 500 mg Cholecalciferol (Cholecalciferol 25 Mcg (1000 Iu) Tablet) 100 mcg PO DAILY@1200 [facility] Last Admin: 08/16/21 12:50 Dose: 100 mcg Cyanocobalamin (Cyanocobalamin 500 Mcg Tab) 500 mcg PO DAILY@1700 [facility] Last Admin: 08/15/21 17:26 Dose: 500 mcg Docusate Sodium (Docusate 100 Mg Cap) 100 mg PO DAILY@1000 [facility] Last Admin: 08/16/21 08:01 Dose: 100 mg Escitalopram Oxalate (Escitalopram 20 Mg Tab) 20 mg PO DAILY@1000 [facility] Last Admin: 08/16/21 08:01 Dose: 20 mg Ferrous Sulfate (Ferrous Sulfate 325 Mg Tab) 325 mg PO BID@1000,1700 [facility] Last Admin: 08/16/21 08:01 Dose: 325 mg Folic Acid (Folic Acid 1 Mg Tab) 0.5 mg PO DAILY@1000 [facility] Last Admin: 08/16/21 08:01 Dose: 0.5 mg Glipizide (Glipizide 2.5 Mg Tab) 2.5 mg PO DAILY@1000 [facility] Last Admin: 08/16/21 11:25 Dose: Not Given Guaifenesin (Guaifenesin Syrup 100mg/5ml 200 Mg/10 Ml Cup) 100 mg PO Q4H PRN PRN Reason: Cough Furosemide 100 mg/ Sodium (Chloride) 100 mls @ 10 mls/hr IV .Q10H [facility] Insulin Aspart (Insulin Aspart (Novolog) 100 Unit/Ml Vial) 0 unit SQ ACHS [facility]; Protocol Last Admin: 08/16/21 12:53 Dose: Not Given Lactobacillus Acidoph/Bulgaricus (Lactobacillus Acidoph & Bulgar 1 Each Packet) 1 each PO DAILY@1200 [facility] Last Admin: 08/16/21 12:51 Dose: 1 each Levothyroxine Sodium (Levothyroxine 88 Mcg Tab) 88 mcg PO DAILY@1000 [facility] Last Admin: 08/16/21 08:01 Dose: 88 mcg Lidocaine (Lidocaine 5% Ointment 50 Gm Jar) 1 applic TOPICAL HS PRN PRN Reason: WOUND PAIN Linagliptin (Linagliptin 5 Mg Tablet) 5 mg PO DAILY@1700 [facility] Last Admin: 08/15/21 17:26 Dose: 5 mg Lorazepam (Lorazepam 1 Mg Tab) 1 mg PO Q4H PRN PRN Reason: Anxiety Lorazepam (Lorazepam 1 Mg Tab) 1 mg PO BID@1000,1700 [facility] Last Admin: 08/16/21 11:05 Dose: 1 mg Magnesium Hydroxide (Magnesium Hydroxide 2,400 Mg/10 Ml Cup) 2,400 mg PO Q48H PRN PRN Reason: Constipation Methyl Salicylate (Methyl Salicylate-Menthol Oint (3 Oz Tube)) 1 applic TOPICAL DAILY PRN PRN Reason: pain Metoprolol Tartrate (Metoprolol Tartrate 25 Mg Tab) 25 mg PO TID [facility] Last Admin: 08/16/21 08:01 Dose: 25 mg Midodrine (Midodrine 5 Mg Tab) 5 mg PO AC-TID [facility] Last Admin: 08/16/21 12:50 Dose: 5 mg Miscellaneous Information (Warfarin Per Pharmacy) 1 each MISCELLANE DIRECTED PRN; Protocol PRN Reason: Per Protocol Multivitamins (Multivitamins, Thera 1 Each Tab) 1 each PO DAILY@1700 [facility] Last Admin: 08/15/21 17:26 Dose: 1 each Naloxone HCl (Naloxone 0.4 Mg/Ml 1 Ml Vial) 0.2 mg IV Q2M PRN PRN Reason: Opioid Reversal Nystatin (Nystatin 100,000 Unit/Gm Powd 15 Gm) 1 applic TOPICAL BID [facility]; Protocol Last Admin: 08/16/21 10:23 Dose: 1 applic Nystatin (Nystatin 100,000unit/Gm Cream 30 Gm Tube) 1 applic TOPICAL BID [facility] Last Admin: 08/16/21 08:03 Dose: 1 applic Pantoprazole Sodium (Pantoprazole 40 Mg Tablet) 40 mg PO HS@2200 [facility] Last Admin: 08/15/21 20:47 Dose: 40 mg Quetiapine Fumarate (Quetiapine 50 Mg Tab) 50 mg PO DAILY@1200 [facility] Last Admin: 08/16/21 12:50 Dose: 50 mg Quetiapine Fumarate (Quetiapine 100 Mg Tab) 300 mg PO HS@2300 [facility] Last Admin: 08/15/21 23:35 Dose: Not Given Simethicone (Simethicone 80 Mg Chewable) 80 mg PO PC-TID PRN PRN Reason: UPPERGASTRIC DISTRESS Triamcinolone Acetonide (Triamcinolone 0.1% Cream 80 Gm Tube) 1 applic TOPICAL BID [facility] Last Admin: 08/16/21 10:23 Dose: 1 applic Warfarin Sodium (Warfarin 0.5 Mg Tab) 0 mg PO ONCE@1800 ONE Stop: 08/16/21 18:01 PHYSICAL EXAMINATION: GENERAL: The patient is alert and oriented x3, anxious morbidly obese Well developed, well nourished. HEENT: Pupils are round and equally reacting to light. EOMI. no scleral icterus. No conjunctival pallor. Normocephalic, atraumatic. No pharyngeal erythema. No thyromegaly. CARDIOVASCULAR: S1 and S2 muffled PULMONARY: diminished breath sounds bilaterally with some crackles and scattered rhonchi noted. ABDOMEN: soft. Nontender on exam. obese. non-distended, normoactive bowel sounds. No palpable organomegaly. MUSCULOSKELETAL: No joint swelling or deformity. EXTREMITIES: No cyanosis, clubbing, or pedal edema. Generalized edema noted throughout NEUROLOGICAL: Gross neurological examination did not reveal any focal deficits. Diffuse weakness SKIN: No rashes. Assessment: Atrial fibrillation with RVR new onset Congestive heart failure, acute exacerbation with preserved EF Morbid obesity with a BMI of 73.5 acute kidney injury COPD, acute exacerbation Diabetes mellitus, type 2 History of PE HIstory of esbl, MRSA Left hip wound GI prophylaxis DVT prophylaxis Full code Plan: Recommend to continue with current medications and management with cardiology following. Infectious disease following for left hip wound and will continue Local wound care and frequent position changes. Pulmonary also following and will continue on breathing inhalational treatments. Patient transition to Coumadin recommend holding for now as INR is 4.0. Transitioned to oral amiodaro ne. Patient requiring more supplemental oxygen and now on BiPAP and nephrology following for worsening kidney functions and overload and patient will be started on IV Lasix drip with close monitoring and recommend follow-up labs. Recommend continuing with telemetry monitoring. Patient is a resident at [facility] and will be returning there once stabilized and discharged. Due to multiple complex medical issues, prognosis is extremely guarded. The impression and plan of care has been dictated by Shefali Becerra, nurse practitioner as directed. Dr. Gee MD I have performed a history and examination and MDM of this patient, discussed the same with the dictator, and agree with the dictator's assessment and plan as written ,documented as a scribe. Based on total visit time, I have performed more than 50% of the visit. Any additional findings or plans will be noted. Objective - Vital Signs Vital signs: Vital Signs Temp 97.8 F 08/16/21 12:29 Pulse 67 08/16/21 12:29 Resp 18 08/16/21 12:29 BP 107/60 08/16/21 12:29 Pulse Ox 96 08/16/21 12:29 FiO2 40 08/16/21 11:55 Intake & Output 08/15/21 08/16/21 08/16/21 18:59 06:59 18:59 Intake Total 750 Output Total 0 50 Balance 750 -50 Intake: Intake, IV Titration 750 Amount Sodium Chloride 0.9% 1, 500 000 ml @ 100 mls/hr IV . Q10H [facility] Rx#:[id number] Sodium Chloride 0.9% 250 250 ml @ 999 mls/hr IV .Q16M [facility] Rx#:[id number] Output: Urine 0 50 Uretheral (Lacy) 50 Other: Voiding Method Indwelling Catheter Indwelling Catheter Indwelling Catheter - Labs CBC & Chem 7: 08/14/21 09:16 08/16/21 07:58 Labs: Abnormal Lab Results - Last 24 Hours (Table) 08/15/21 08/15/21 08/15/21 Range/Units 20:33 23:06 23:24 PT (9.0-12.0) sec INR (<1.2) ABG pH (7.35-7.45) ABG pCO2 (35-45) mmHg ABG HCO3 (21-25) mmol/L ABG Total CO2 (19-24) mmol/L Sodium (137-145) mmol/L Potassium (3.5-5.1) mmol/L Chloride (98-107) mmol/L Carbon Dioxide (22-30) mmol/L BUN (7-17) mg/dL Creatinine (0.52-1.04) mg/dL Glucose (74-99) mg/dL POC Glucose (mg/dL) 103 H 111 H 104 H (75-99) mg/dL 08/15/21 08/15/21 08/16/21 Range/Units 23:31 23:49 07:58 PT (9.0-12.0) sec INR (<1.2) ABG pH 7.33 L (7.35-7.45) ABG pCO2 76 H* (35-45) mmHg ABG HCO3 40 H* (21-25) mmol/L ABG Total CO2 42 H (19-24) mmol/L Sodium 132 L 133 L (137-145) mmol/L Potassium 5.8 H (3.5-5.1) mmol/L Chloride 90 L 87 L (98-107) mmol/L Carbon Dioxide 35 H 37 H (22-30) mmol/L BUN 52 H 50 H (7-17) mg/dL Creatinine 1.73 H 2.03 H (0.52-1.04) mg/dL Glucose 105 H 101 H (74-99) mg/dL POC Glucose (mg/dL) (75-99) mg/dL 08/16/21 08/16/21 Range/Units 07:58 11:45 PT 40.1 H (9.0-12.0) sec INR 4.0 H (<1.2) ABG pH (7.35-7.45) ABG pCO2 (35-45) mmHg ABG HCO3 (21-25) mmol/L ABG Total CO2 (19-24) mmol/L Sodium (137-145) mmol/L Potassium (3.5-5.1) mmol/L Chloride (98-107) mmol/L Carbon Dioxide (22-30) mmol/L BUN (7-17) mg/dL Creatinine (0.52-1.04) mg/dL Glucose (74-99) mg/dL POC Glucose (mg/dL) 100 H (75-99) mg/dL
--- NOTE | 2021-08-16 15:04 | P.PN ---
Subjective HISTORY OF PRESENT ILLNESS: This is a 65-year-old female with a past medical history significant for COPD, hypertension, hypothyroidism, and PE/DVT on Coumadin. Patient was last seen in the office in [address] Carlos. We have been asked to see the patient in consultation for A. fib with RVR. Patient examined at the bedside. The patient apparently was brought to the hospital from [facility] secondary to hypoxia. The patient states when they checked her oxygen saturations on her finger she was found to be 75%. She does report feeling short of breath. She denies any chest pain. She reports some swelling in her lower extremities and states that her leg feels like it is asleep and is requesting to be repositioned in bed. The patient was found to be in A. fib with RVR. The patient denies any history of atrial fibrillation. The patient was started on a Cardizem drip at 10 mg an hour. She remains in atrial fibrillation this morning with a heart rate in the 120s. * EKG reveals A. fib with RVR * Chest xray medical correlation recommended for congestive heart failure * Laboratory data: WBC 10.0. Hemoglobin 11.5. Platelet count 372. Sodium 136. Potassium 3.9. BUN 20. Creatinine 0.52. Troponin negative 1 * Current home cardiac medications include warfarin 5 mg Monday and 2.5 mg Monday, metoprolol tartrate 12.5 mg twice a day, Lasix 40 mg the morning and 20 mg in the afternoon * Most recent echocardiogram obtained in 2018 revealing ejection fraction 60- 65%, mild tricuspid regurgitation 08/13/2021 Patient examined this morning at the bedside. Patient denies chest pain or p ressure. She reports mild shortness of breath. She remains on IV Lasix 40 mg every 8 hours. She remains on IV amiodarone. Patient is receiving Coumadin. She is also on IV heparin until INR is therapeutic. INR this morning is currently pending. Echocardiogram completed revealing ejection fraction 40-45%, severe right ventricular dilatation, mild tricuspid regurgitation, and moderate pericardial effusion. Patient was found to have an elevated d-dimer yesterday 1.58. CTA chest was ordered. Per nursing, this was cancelled as patient was unable to fit in CT machine due to body habitus. 08/14 Patient seen and examined. She denies any chest pain or pressure. Appears confused and asking for help however not able to tell which she needs help with. Denies any shortness breath. Cr noted increased to 1.4 today up from 0.5 on presentation. ProBNP noted to be mild elevated 732 previously. 08/15 Patient seen and examined. Patient somewhat more lethargic and confused today. Creatinine noted to be increased to 1.8. She has not been eating or drinking and per nurse only eating things in applesauce. Has had little to no urine output which is dark appearing. 08/16 Patient seen and examined. Patient currently somnolent on BiPAP. ABG last night show an increased CO2. Creatinine mildly increased at 2.0. No urine output noted in Claros. PHYSICAL EXAM: VITAL SIGNS: Reviewed. GENERAL: Well-developed in no acute distress. HEENT: Head is normocephalic. Pupils are equal, round. Sclerae anicteric. Mucous membranes of the mouth are moist. Neck supple. No JVD or thyromegaly LUNGS: Respirations even and unlabored. Lungs diminished to auscultation bilaterally. HEART: Tachycardic. Irregular rate and rhythm. S1 and S2 heard. ABDOMEN: Soft. Nondistended. Nontender. EXTREMITIES: Normal range of motion. No clubbing or cyanosis. Peripheral pulses intact. Bilateral lower extremity edema present NEUROLOGIC: Somnolent on BIPAP ASSESSMENT: New onset A. fib with RVR Acute hypoxic respiratory failure Acute on chronic heart failure with preserved ejection fraction COPD Hypertension Hypothyroidism History of PE/DVT on Coumadin Diabetes Moderate pericardial effusion Elevated d-dimer, unable to have CTA due to body habitus Acute kidney injury CO2 narcosis PLAN: Continue telemetry monitoring Continue oral amio 400mg BID, HRs currently predominantly controlled Contiue metoprolol to 25mg TID Continue Coumadin. Monitor INR Continue Coumadin for INR of 2.0-3.0, currently supratheraputic and hold D-Dimer elevated. Patient unable to fit in CT machine due to body habitus. Await further recommendations from pulmonary regarding abnormal d-dimer. Patient has not been eating or drinking and increased creatinine noted. Nephrology recommendations appreciated. Continue with IVF while patient NPO. Monitor neurolgic status with CO2 narcosis. Further recommendations pending patient's course Objective - Vital Signs Vital signs: Vital Signs Temp 97.8 F 08/16/21 12:29 Pulse 67 08/16/21 12:29 Resp 18 08/16/21 12:29 BP 107/60 08/16/21 12:29 Pulse Ox 96 08/16/21 12:29 FiO2 40 08/16/21 11:55 Intake & Output 08/15/21 08/16/21 08/16/21 18:59 06:59 18:59 Intake Total 750 Output Total 0 50 Balance 750 -50 Intake: Intake, IV Titration 750 Amount Sodium Chloride 0.9% 1, 500 000 ml @ 100 mls/hr IV . Q10H [facility] Rx#:[id number] Sodium Chloride 0.9% 250 250 ml @ 999 mls/hr IV .Q16M [facility] Rx#:[id number] Output: Urine 0 50 Uretheral (Claros) 50 Other: Voiding Method Indwelling Catheter Indwelling Catheter Indwelling Catheter - Labs CBC & Chem 7: 08/14/21 09:16 08/16/21 07:58 Labs: Abnormal Lab Results - Last 24 Hours (Table) 08/15/21 08/15/21 08/15/21 Range/Units 20:33 23:06 23:24 PT (9.0-12.0) sec INR (<1.2) ABG pH (7.35-7.45) ABG pCO2 (35-45) mmHg ABG HCO3 (21-25) mmol/L ABG Total CO2 (19-24) mmol/L Sodium (137-145) mmol/L Potassium (3.5-5.1) mmol/L Chloride (98-107) mmol/L Carbon Dioxide (22-30) mmol/L BUN (7-17) mg/dL Creatinine (0.52-1.04) mg/dL Glucose (74-99) mg/dL POC Glucose (mg/dL) 103 H 111 H 104 H (75-99) mg/dL 08/15/21 08/15/21 08/16/21 Range/Units 23:31 23:49 07:58 PT (9.0-12.0) sec INR (<1.2) ABG pH 7.33 L (7.35-7.45) ABG pCO2 76 H* (35-45) mmHg ABG HCO3 40 H* (21-25) mmol/L ABG Total CO2 42 H (19-24) mmol/L Sodium 132 L 133 L (137-145) mmol/L Potassium 5.8 H (3.5-5.1) mmol/L Chloride 90 L 87 L (98-107) mmol/L Carbon Dioxide 35 H 37 H (22-30) mmol/L BUN 52 H 50 H (7-17) mg/dL Creatinine 1.73 H 2.03 H (0.52-1.04) mg/dL Glucose 105 H 101 H (74-99) mg/dL POC Glucose (mg/dL) (75-99) mg/dL 08/16/21 08/16/21 Range/Units 07:58 11:45 PT 40.1 H (9.0-12.0) sec INR 4.0 H (<1.2) ABG pH (7.35-7.45) ABG pCO2 (35-45) mmHg ABG HCO3 (21-25) mmol/L ABG Total CO2 (19-24) mmol/L Sodium (137-145) mmol/L Potassium (3.5-5.1) mmol/L Chloride (98-107) mmol/L Carbon Dioxide (22-30) mmol/L BUN (7-17) mg/dL Creatinine (0.52-1.04) mg/dL Glucose (74-99) mg/dL POC Glucose (mg/dL) 100 H (75-99) mg/dL
[2021-08-16] MEDS: FUROSEMIDE 100 MG in SODIUM CHLORIDE 0.9% 90 ML IV SCH ×2 (15:26→21:31)
[2021-08-16 16:46] LABS: Glucose,Whole Blood 100 mg/dL (75-99)
[2021-08-16] MEDS: CYANOCOBALAMIN 500 MCG TAB PO SCH (17:30)
[2021-08-16] MEDS: CALCIUM CARB-VIT D 500 MG-5 MCG TAB PO SCH (17:30)
[2021-08-16] MEDS: CALCIUM CARBONATE 500 MG CHEWABLE PO SCH (17:30)
[2021-08-16] MEDS: ASCORBIC ACID 500 MG TAB PO SCH (17:30)
[2021-08-16] MEDS: MULTIVITAMINS, THERA 1 EACH TAB PO SCH (17:31)
[2021-08-16] MEDS: LINAGLIPTIN 5 MG TABLET PO SCH (17:50)
[2021-08-16] MEDS ORDERED: WARFARIN 0.5 MG TAB PO ONE (18:00)
[2021-08-16 18:08] LABS: Appearance,Urine Turbid (Clear); Bacteria,Urine Few /hpf; Bilirubin,Urine Negative (Negative); Blood,Urine Large (Negative); Budding Yeast,Urine Many /hpf; Color,Urine Dark Brown; Glucose,Urine (UA) Negative (Negative); Hyaline Casts,Urine 58 /lpf (0-2); Ketones,Urine Negative (Negative); Leukocyte Esterase,Urine Large (Negative); Mucus,Urine Few /hpf; Nitrite,Urine Negative (Negative); Protein,Urine 2+ (Negative); RBC,Urine >182 /hpf (0-5); Squamous Epithelial Cell,Urine 4 /hpf (0-4); Urobilinogen,Urine <2.0 mg/dL (<2.0); WBC,Urine >182 /hpf (0-5)
[2021-08-16 18:21] LABS: Specific Gravity,Urine 1.015 (1.001-1.035)
[2021-08-16 20:25] LABS: Glucose,Whole Blood 114 mg/dL (75-99)
[2021-08-16] MEDS: PANTOPRAZOLE 40 MG TABLET PO SCH (21:30)
[2021-08-16] MEDS: QUEtiapine 100 MG TAB PO SCH ×2 (23:49→23:52)
[2021-08-17 01:58] LABS: Glucose,Whole Blood 104 mg/dL (75-99)
[2021-08-17] MEDS: FUROSEMIDE 100 MG in SODIUM CHLORIDE 0.9% 90 ML IV SCH ×4 (03:28→22:59)
[2021-08-17] MEDS: INSULIN ASPART (NovoLOG) 100 UNIT/ML VIAL SQ SCH ×4 (06:11→21:08)
[2021-08-17 06:12] LABS: Glucose,Whole Blood 99 mg/dL (75-99)
[2021-08-17] MEDS: MIDODRINE 5 MG TAB PO SCH ×3 (06:13→17:07)
[2021-08-17] MEDS: IPRATROPIUM-ALBUTEROL 3 ML NEB INHALATION SCH ×3 (07:09→19:16)
[2021-08-17] MEDS: LEVOTHYROXINE 88 MCG TAB PO SCH (09:07)
[2021-08-17] MEDS: AMIODARONE 200 MG TAB PO SCH ×2 (09:07→21:13)
[2021-08-17] MEDS: FERROUS SULFATE 325 MG TAB PO SCH ×2 (09:08→17:07)
[2021-08-17] MEDS: FOLIC ACID 1 MG TAB PO SCH (09:08)
[2021-08-17] MEDS: LORazepam 1 MG TAB PO SCH ×2 (09:08→17:07)
[2021-08-17] MEDS: DOCUSATE 100 MG CAP PO SCH (09:08)
[2021-08-17] MEDS: METOPROLOL TARTRATE 25 MG TAB PO SCH ×3 (09:08→21:14)
[2021-08-17] MEDS: ESCITALOPRAM 20 MG TAB PO SCH (09:08)
[2021-08-17] MEDS: NYSTATIN 100,000UNIT/GM CREAM 30 GM TUBE TOPICAL SCH ×2 (09:09→21:14)
[2021-08-17] MEDS: TRIAMCINOLONE 0.1% CREAM 80 GM TUBE TOPICAL SCH ×2 (09:09→21:14)
[2021-08-17 09:42] LABS: Basophils % (A) 0 %; Eosinophils # (A) 0.1 k/uL (0-0.7); Eosinophils % (A) 0 %; HCT 36.5 % (34.0-46.0); HGB 10.7 gm/dL (11.4-16.0); Hypochromasia Marked; Lymphocytes % (A) 12 %; MCH 28.3 pg (25.0-35.0); MCHC 29.4 g/dL (31.0-37.0); MCV 96.2 fL (80.0-100.0); Mean Platelet Volume 7.5; Monocytes # (A) 0.9 k/uL (0-1.0); Monocytes % (A) 5 %; Neutrophils % (A) 80 %; Platelet Count 409 k/uL (150-450); WBC 16.2 k/uL (3.8-10.6)
[2021-08-17 09:58] LABS: INR 4.5 (<1.2); Prothrombin Time 44.7 sec (9.0-12.0)
[2021-08-17 10:06] LABS: Calcium 9.3 mg/dL (8.4-10.2); Potassium 4.3 mmol/L (3.5-5.1)
[2021-08-17 11:38] LABS: Glucose,Whole Blood 92 mg/dL (75-99)
--- NOTE | 2021-08-17 11:40 | P.PN ---
Subjective Patient is seen for follow-up for acute kidney injury. Renal function has been worsening She has an indwelling Claros catheter with no significant urine output. Blood pressure had been running low. Patient was initially started on IV fluids however she remained with poor urine output and worsening edema. Yesterday Lasix drip was started. Initially patient did not have much urine output however it appears that she has 225 mL currently in the bag. At this time it is unclear if the Claros bag was emptied this morning. Patient is currently maintained on BiPAP. She has been confused. Mentation is slightly better today. Patient had CO2 retention and respiratory acidosis. Objective - Vital Signs Vital signs: Vital Signs Temp 98.3 F 08/17/21 08:00 Pulse 98 08/17/21 11:28 Resp 10 L 08/17/21 08:00 BP 123/67 08/17/21 08:00 Pulse Ox 94 L 08/17/21 08:00 FiO2 40 08/17/21 11:18 Intake & Output 08/16/21 08/17/21 08/17/21 18:59 06:59 18:59 Intake Total 120.333 Output Total 100 50 225 Balance -100 70.333 -225 Intake: Intake, IV Titration 120.333 Amount Furosemide 100 mg In 120.333 Sodium Chloride 0.9% 90 ml @ 15 MG/HR 15 mls/hr IV .Q6H40M [facility] Rx#: [id number] Output: Urine 100 50 225 Uretheral (Claros) 50 0 Other: Voiding Method Indwelling Catheter Indwelling Catheter Indwelling Catheter # Bowel Movements 1 - Exam Awake, comfortable, maintained on BiPAP Patient has been confused, mentation slightly improved today Examination of the heart S1 and S2 Examination lungs bilateral breath sounds are heard Abdomen is soft obese Examination lower extremity shows significant chronic skin changes and significant chronic edema - Labs CBC & Chem 7: 08/17/21 08:59 08/17/21 08:59 Labs: Abnormal Lab Results - Last 24 Hours (Table) 08/16/21 08/16/21 08/16/21 Range/Units 11:45 16:44 17:55 WBC (3.8-10.6) k/uL Hgb (11.4-16.0) gm/dL MCHC (31.0-37.0) g/dL RDW (11.5-15.5) % Neutrophils # (1.3-7.7) k/uL PT (9.0-12.0) sec INR (<1.2) Sodium (137-145) mmol/L Chloride (98-107) mmol/L Carbon Dioxide (22-30) mmol/L BUN (7-17) mg/dL Creatinine (0.52-1.04) mg/dL POC Glucose (mg/dL) 100 H 100 H (75-99) mg/dL Urine Appearance Turbid H (Clear) Urine Protein 2+ H (Negative) Urine Blood Large H (Negative) Ur Leukocyte Esterase Large H (Negative) Urine RBC >182 H (0-5) /hpf Urine WBC >182 H (0-5) /hpf Urine WBC Clumps Many H (None) /hpf Urine Bacteria Few H (None) /hpf Hyaline Casts 58 H (0-2) /lpf Urine Mucus Few H (None) /hpf Urine Yeast (Budding) Many H (None) /hpf 08/16/21 08/17/21 08/17/21 Range/Units 20:24 01:56 08:59 WBC (3.8-10.6) k/uL Hgb (11.4-16.0) gm/dL MCHC (31.0-37.0) g/dL RDW (11.5-15.5) % Neutrophils # (1.3-7.7) k/uL PT 44.7 H (9.0-12.0) sec INR 4.5 H (<1.2) Sodium (137-145) mmol/L Chloride (98-107) mmol/L Carbon Dioxide (22-30) mmol/L BUN (7-17) mg/dL Creatinine (0.52-1.04) mg/dL POC Glucose (mg/dL) 114 H 104 H (75-99) mg/dL Urine Appearance (Clear) Urine Protein (Negative) Urine Blood (Negative) Ur Leukocyte Esterase (Negative) Urine RBC (0-5) /hpf Urine WBC (0-5) /hpf Urine WBC Clumps (None) /hpf Urine Bacteria (None) /hpf Hyaline Casts (0-2) /lpf Urine Mucus (None) /hpf Urine Yeast (Budding) (None) /hpf 08/17/21 08/17/21 Range/Units 08:59 08:59 WBC 16.2 H (3.8-10.6) k/uL Hgb 10.7 L (11.4-16.0) gm/dL MCHC 29.4 L (31.0-37.0) g/dL RDW 16.0 H (11.5-15.5) % Neutrophils # 13.0 H (1.3-7.7) k/uL PT (9.0-12.0) sec INR (<1.2) Sodium 134 L (137-145) mmol/L Chloride 87 L (98-107) mmol/L Carbon Dioxide 34 H (22-30) mmol/L BUN 56 H (7-17) mg/dL Creatinine 2.05 H (0.52-1.04) mg/dL POC Glucose (mg/dL) (75-99) mg/dL Urine Appearance (Clear) Urine Protein (Negative) Urine Blood (Negative) Ur Leukocyte Esterase (Negative) Urine RBC (0-5) /hpf Urine WBC (0-5) /hpf Urine WBC Clumps (None) /hpf Urine Bacteria (None) /hpf Hyaline Casts (0-2) /lpf Urine Mucus (None) /hpf Urine Yeast (Budding) (None) /hpf Assessment and Plan Assessment: 1. Acute kidney injury, ATN. No evidence of obstruction noted on ultrasound. Patient has an indwelling Claros catheter. Blood pressure is low. Status post IV fluids initially, started on Lasix drip yesterday with some improvement in urine output noted today. 2. Volume overload with chronic lower extremity edema and chronic hypoxic and hypercapnic respiratory failure. Repeat chest x-ray shows evidence of pulmonary vascular congestion 3. A. fib with RVR 4. Chronic diastolic heart failure 5. Previous history of PE maintained on long-term anticoagulation 6. Morbid obesity Plan: Continue with Lasix drip Continue to monitor urine output Repeat labs in a.m. Avoid any nephrotoxic agents.
[2021-08-17] MEDS: CHOLECALCIFEROL 25 MCG (1000 IU) TABLET PO SCH (12:49)
[2021-08-17] MEDS: QUEtiapine 50 MG TAB PO SCH (12:49)
[2021-08-17] MEDS: LACTOBACILLUS ACIDOPH & BULGAR 1 EACH PACKET PO SCH (12:49)
[2021-08-17] MEDS: NYSTATIN 100,000 UNIT/GM POWD 15 GM TOPICAL SCH ×2 (12:54→21:15)
--- NOTE | 2021-08-17 14:50 | P.PN ---
Subjective Progress Note Date: 08/17/21 Principal diagnosis: Shortness of breath On 08/17/2021 patient seen in follow-up on selective care unit. She is awake and alert, in no acute distress, she has been wearing BiPAP intermittently, she is currently on nasal cannula, patient remains on IV Lasix at 50 mg/h. However her urine output has been very minimal, and patient still has significant generalized edema and significant lower extremity edema. Renal function continues to worsen and on today's labs BUN is 56, and creatinine is 2.05. Sodium is 134, potassium is 4.3. Urinalysis showed evidence of acute urinary tract infection. White blood cell count has increased and is up to 16.2, hemoglobin is 10.7. INR is 4.5. No nausea or vomiting, although her appetite is poor. No Complains of chest discomfort. No coughing or wheezing, no fever or chills. Objective - Vital Signs Vital signs: Vital Signs Temp 97.6 F 08/17/21 11:47 Pulse 89 08/17/21 11:47 Resp 10 L 08/17/21 11:47 BP 98/53 08/17/21 11:47 Pulse Ox 95 08/17/21 11:47 FiO2 40 08/17/21 11:18 Intake & Output 08/16/21 08/17/21 08/17/21 18:59 06:59 18:59 Intake Total 120.333 100 Output Total 100 50 225 Balance -100 70.333 -125 Intake: Intake, IV Titration 120.333 100 Amount Furosemide 100 mg In 120.333 100 Sodium Chloride 0.9% 90 ml @ 15 MG/HR 15 mls/hr IV .Q6H40M [facility] Rx#: [id number] Output: Urine 100 50 225 Uretheral (Claros) 50 0 Other: Voiding Method Indwelling Catheter Indwelling Catheter Indwelling Catheter # Bowel Movements 1 - Exam GENERAL EXAM: Alert, very pleasant, 65-year-old morbidly obese white female, on nasal cannula and BiPAP support intermittently, comfortable in no apparent distress. HEAD: Normocephalic/atraumatic. EYES: Normal reaction of pupils, equal size. Conjunctiva pink, sclera white. NOSE: Clear with pink turbinates. THROAT: No erythema or exudates. NECK: No masses, no JVD, no thyroid enlargement, no adenopathy. CHEST: No chest wall deformity. Symmetrical expansion. LUNGS: Equal air entry with no crackles, wheeze, rhonchi or dullness. CVS: Regular rate and rhythm, normal S1 and S2, no gallops, no murmurs, no rubs ABDOMEN: Soft, obese, nontender No hepatosplenomegaly, normal bowel sounds, no guarding or rigidity. EXTREMITIES: No clubbing, 3+ lower extremity edema no cyanosis, 2+ pulses and upper and lower extremities. MUSCULOSKELETAL: Muscle strength and tone normal. SPINE: No scoliosis or deformity SKIN: No rashes CENTRAL NERVOUS SYSTEM: Alert and oriented -3. No focal deficits, tone is normal in all 4 extremities. PSYCHIATRIC: Alert and oriented -3. Appropriate affect. Intact judgment and insight. - Labs CBC & Chem 7: 08/17/21 08:59 08/17/21 08:59 Labs: Abnormal Lab Results - Last 24 Hours (Table) 08/16/21 08/16/21 08/16/21 Range/Units 16:44 17:55 20:24 WBC (3.8-10.6) k/uL Hgb (11.4-16.0) gm/dL MCHC (31.0-37.0) g/dL RDW (11.5-15.5) % Neutrophils # (1.3-7.7) k/uL PT (9.0-12.0) sec INR (<1.2) Sodium (137-145) mmol/L Chloride (98-107) mmol/L Carbon Dioxide (22-30) mmol/L BUN (7-17) mg/dL Creatinine (0.52-1.04) mg/dL POC Glucose (mg/dL) 100 H 114 H (75-99) mg/dL Urine Appearance Turbid H (Clear) Urine Protein 2+ H (Negative) Urine Blood Large H (Negative) Ur Leukocyte Esterase Large H (Negative) Urine RBC >182 H (0-5) /hpf Urine WBC >182 H (0-5) /hpf Urine WBC Clumps Many H (None) /hpf Urine Bacteria Few H (None) /hpf Hyaline Casts 58 H (0-2) /lpf Urine Mucus Few H (None) /hpf Urine Yeast (Budding) Many H (None) /hpf 08/17/21 08/17/21 08/17/21 Range/Units 01:56 08:59 08:59 WBC 16.2 H (3.8-10.6) k/uL Hgb 10.7 L (11.4-16.0) gm/dL MCHC 29.4 L (31.0-37.0) g/dL RDW 16.0 H (11.5-15.5) % Neutrophils # 13.0 H (1.3-7.7) k/uL PT 44.7 H (9.0-12.0) sec INR 4.5 H (<1.2) Sodium (137-145) mmol/L Chloride (98-107) mmol/L Carbon Dioxide (22-30) mmol/L BUN (7-17) mg/dL Creatinine (0.52-1.04) mg/dL POC Glucose (mg/dL) 104 H (75-99) mg/dL Urine Appearance (Clear) Urine Protein (Negative) Urine Blood (Negative) Ur Leukocyte Esterase (Negative) Urine RBC (0-5) /hpf Urine WBC (0-5) /hpf Urine WBC Clumps (None) /hpf Urine Bacteria (None) /hpf Hyaline Casts (0-2) /lpf Urine Mucus (None) /hpf Urine Yeast (Budding) (None) /hpf 08/17/21 Range/Units 08:59 WBC (3.8-10.6) k/uL Hgb (11.4-16.0) gm/dL MCHC (31.0-37.0) g/dL RDW (11.5-15.5) % Neutrophils # (1.3-7.7) k/uL PT (9.0-12.0) sec INR (<1.2) Sodium 134 L (137-145) mmol/L Chloride 87 L (98-107) mmol/L Carbon Dioxide 34 H (22-30) mmol/L BUN 56 H (7-17) mg/dL Creatinine 2.05 H (0.52-1.04) mg/dL POC Glucose (mg/dL) (75-99) mg/dL Urine Appearance (Clear) Urine Protein (Negative) Urine Blood (Negative) Ur Leukocyte Esterase (Negative) Urine RBC (0-5) /hpf Urine WBC (0-5) /hpf Urine WBC Clumps (None) /hpf Urine Bacteria (None) /hpf Hyaline Casts (0-2) /lpf Urine Mucus (None) /hpf Urine Yeast (Budding) (None) /hpf Assessment and Plan Plan: Assessment: #1. Acute shortness of breath, acute on chronic with evidence of worsening CHF with diastolic dysfunction. Chest x-ray findings are consistent with CHF, cardiomegaly and pulmonary edema and increased lower extremity edema related to decompensated CHF. #2. Acute on chronic hypoxic/hypercapnic respiratory failure on BiPAP alternating with nasal cannula #3. Acute kidney injury patient is oliguric, nephrology is on the case. Loraine ent is having minimal urine output and has poor response to diuretics #4. CHF with probable biventricular diastolic heart failure with acute decompensation is significant volume overload #5. New onset atrial fibrillation, currently controlled with oral amiodarone and metoprolol #6. Chronic hypoxic respiratory failure #7. Morbid obesity with BMI of 73.5 kg/m #8. Chronic hypoxic and hypercapnic respiratory failure with a component of obesity hypoventilation syndrome #9. Hypertension #10. Previous history of pulmonary embolism on Coumadin #11. Hypothyroidism #12. Chronic lower extremity edema #13. Diabetes mellitus #14. Resident of a extended care facility Plan: BiPAP support at bedtime and as needed May give trials of nasal cannula, titrate FiO2 to keep O2 sats rest or since at or above 88% Patient amelia on IV Lasix but continues to be oliguric, and has had poor r esponse to diuretics Nephrology is on the case, today's labs show worsening renal function Follow-up labs including electrolytes and renal profile tomorrow Urine for culture Overall prognosis is quite guarded Accurate intake and output, daily weights Continue to follow her clinical course I have personally seen and examined the patient, performed the documentation and the assessment and plan as written. Number of minutes spent on the visit: [10] Time with Patient: Less than 30
[2021-08-17 16:26] LABS: Glucose,Whole Blood 74 mg/dL (75-99)
--- NOTE | 2021-08-17 16:50 | PN ---
PROGRESS NOTE This lady has type 2 diabetes, hypertension, hyperlipidemia. She has significantly decreased urine output and rising creatinine. She is going to probably have dialysis eventually. Cardiac-stephenson she is stable enough to proceed with dialysis. Prognosis remains guarded. She is quite morbidly obese and has episodes of hypotension and currently seems to have a rising creatinine with almost negligible urine output. She is in an atrial fibrillation which is chronic. Rate is moderate. She also has diabetes and hypertension. She is on Coumadin at home and the last INR was elevated at 4.5. Coumadin is currently being held. We will recheck the PT/INR and once it comes down, she will probably proceed with catheter placement. Vitals are stable. S1-S2 heard normally but distantly. Short systolic murmur noted. Lungs reveal diminished air entry. Abdomen is distended. Lower extremities reveal bilateral edema. Central nervous system: Grossly no focal deficits, but detailed exam was not performed. Prognosis remains poor. MMODL / IJN: [id number] /
[2021-08-17] MEDS: CALCIUM CARB-VIT D 500 MG-5 MCG TAB PO SCH (17:07)
[2021-08-17] MEDS: MULTIVITAMINS, THERA 1 EACH TAB PO SCH (17:07)
[2021-08-17] MEDS: ASCORBIC ACID 500 MG TAB PO SCH (17:07)
[2021-08-17] MEDS: CYANOCOBALAMIN 500 MCG TAB PO SCH (17:08)
[2021-08-17] MEDS: LINAGLIPTIN 5 MG TABLET PO SCH (17:15)
[2021-08-17] MEDS: CALCIUM CARBONATE 500 MG CHEWABLE PO SCH (17:17)
[2021-08-17] MEDS ORDERED: WARFARIN 0.5 MG TAB PO ONE (18:00)
--- NOTE | 2021-08-17 19:03 | P.PN ---
Subjective Progress Note Date: 08/17/21 This 65-year-old female was recently admitted with CHF and atrial fibrillation cardio following closely. Patient was maintained on IV Cardizem which is currently being transitioned IV amiodarone along with IV heparin. 2-D echo was ordered and pending at this time. Patient continues on 2 L of oxygen via nasal cannula at 90% oxygen pulse ox and continues to report shortness of breath and generalized weakness. Patient is morbidly obese with a BMI of 73.5 and [place] Patient's blood pressure is elevated and will initiate Norvasc 10 mg daily and monitor closely. Infectious disease also consulted for a wound on the left hip along with pulmonary for COPD acute exacerbation. Patient denies any chest pain and patient is afebrile. 08/13/2021 Patient is seen today in follow up and continues to report shortness of breath. Cardiology and pulmonary and ID following. Patient is continued on bronchodilators and also continues on IV lasix. IV heparin continued and being started on coumadin. Transitioned to oral amiodarone and cardiology adjusting medications. Patient denies chest pain and is afebrile. 08/14/2021 Patient is seen this am and continues with cardiology and pulmonary following. Neprhology consulted for elevated kidney functions and patient is continued on IV lasix. US renal/bladder and pending. Patient continues with 3L via NC and breathing treatments along with IV heparin and coumadin with pharmacy to dose. Cardiology also following. Patient is afebrile and denies any chest pain. Patient reports not eating or drinking. 08/15/2021 Patient is seen today and continues with worsening renal functions and also some hypotension. Patient was maintained on IV heparin with coumadin and INR is 2.6 today and will dc heparin. Patient with hypotension and adding some midodrine and per nephro will give a 250ml bolus. Off IV lasix for now given worsening renal functions. Poor oral intake and decreased urine output from yesterday. Continue lacy catheter and encouraged oral intake. Patient is more lethargic today as well. 08/16/2021 Patient is seen in follow-up currently maintained on BiPAP and continues with shortness of breath. Multiple medical consultations following including pulmonary, nephrology, cardiology and patient continues with volume overload and is being started on IV Lasix. Patient with worsening kidney functions and decreased urine output although bladder and abdomen ultrasound showed no evidence of hydronephrosis. Patient also transition to Coumadin and INR is 4.0 and recommend to hold Coumadin and repeat labs. Sodium is 133 with a potassium of 4.3, BUN is 50, creatinine is 2.03. Patient not really tolerating any oral diet and difficult given the BiPAP is continuous at this time. Patient is anxious with family friend at the bedside. Patient is afebrile and denies any chest pain. Patient to continue with local wound care per ID with frequent position changes as well. 08/17/2021 Patient is seen this morning and continues on IV lasix drip with cardiology, pulmonary, and nephrology following. Patient is on bipap and continues with poor oral intake and minimal urine output. Indwelling catheter for strict monitoring of intake and output. Patient did have some brief periods of attempting nasal cannula and was able to take medications and have 2cups of applesauce per staff attorney. WBC is elevated and CXR ordered. Patient is afebrile and denies chest pain. Review of systems: Constitutional: reports of fatigue and weakness, no reports of fever, or chills Cardiovascular: No reports of chest pain or palpitations Respiratory: reports of worsening shortness of breath GI: No reports of nausea, no reports of of vomiting, poor appetite : No reports of dysuria or retention, decreased output Neurovascular: reports of generalized weakness All medications have been reviewed Active Medications Acetaminophen (Acetaminophen Tab 325 Mg Tab) 650 mg PO Q6HR PRN PRN Reason: Mild Pain or Fever > 100.5 Albuterol/Ipratropium (Ipratropium-Albuterol 3 Ml Neb) 3 ml INHALATION RT-TID [facility] Last Admin: 08/17/21 11:17 Dose: 3 ml Amiodarone HCl (Amiodarone 200 Mg Tab) 400 mg PO BID [facility] Stop: 08/18/21 08:00 Last Admin: 08/17/21 09:07 Dose: 400 mg Amiodarone HCl (Amiodarone 200 Mg Tab) 200 mg PO BID [facility] Ascorbic Acid (Ascorbic Acid 500 Mg Tab) 500 mg PO DAILY@1700 [facility] Last Admin: 08/17/21 17:07 Dose: 500 mg Atorvastatin Calcium (Atorvastatin 20 Mg Tab) 20 mg PO HS [facility] Bisacodyl (Bisacodyl 10 Mg Supp) 10 mg RECTAL DAILY PRN PRN Reason: Constipation Calcium Carbonate (Calcium Carb-Vit D 500 Mg-5 Mcg Tab) 1 each PO DAILY@1700 [facility] Last Admin: 08/17/21 17:07 Dose: 1 each Calcium Carbonate/Glycine (Calcium Carbonate 500 Mg Chewable) 500 mg PO DAILY@1700 [facility] Last Admin: 08/17/21 17:17 Dose: Not Given Cholecalciferol (Cholecalciferol 25 Mcg (1000 Iu) Tablet) 100 mcg PO DAILY@1200 [facility] Last Admin: 08/17/21 12:49 Dose: 100 mcg Cyanocobalamin (Cyanocobalamin 500 Mcg Tab) 500 mcg PO DAILY@1700 [facility] Last Admin: 08/17/21 17:08 Dose: 500 mcg Docusate Sodium (Docusate 100 Mg Cap) 100 mg PO DAILY@1000 [facility] Last Admin: 08/17/21 09:08 Dose: 100 mg Escitalopram Oxalate (Escitalopram 20 Mg Tab) 20 mg PO DAILY@1000 [facility] Last Admin: 08/17/21 09:08 Dose: 20 mg Ferrous Sulfate (Ferrous Sulfate 325 Mg Tab) 325 mg PO BID@1000,1700 [facility] Last Admin: 08/17/21 17:07 Dose: 325 mg Folic Acid (Folic Acid 1 Mg Tab) 0.5 mg PO DAILY@1000 [facility] Last Admin: 08/17/21 09:08 Dose: 0.5 mg Glipizide (Glipizide 2.5 Mg Tab) 2.5 mg PO DAILY@1000 [facility] Last Admin: 08/17/21 09:09 Dose: 2.5 mg Guaifenesin (Guaifenesin Syrup 100mg/5ml 200 Mg/10 Ml Cup) 100 mg PO Q4H PRN PRN Reason: Cough Furosemide 100 mg/ Sodium (Chloride) 100 mls @ 15 mls/hr IV .Q6H40M [facility] Last Admin: 08/17/21 17:15 Dose: 15 mg/hr, 15 mls/hr Insulin Aspart (Insulin Aspart (Novolog) 100 Unit/Ml Vial) 0 unit SQ [facility]; Protocol Last Admin: 08/17/21 17:15 Dose: Not Given Lactobacillus Acidoph/Bulgaricus (Lactobacillus Acidoph & Bulgar 1 Each Packet) 1 each PO DAILY@1200 [facility] Last Admin: 08/17/21 12:49 Dose: 1 each Levothyroxine Sodium (Levothyroxine 88 Mcg Tab) 88 mcg PO DAILY@1000 [facility] Last Admin: 08/17/21 09:07 Dose: 88 mcg Lidocaine (Lidocaine 5% Ointment 50 Gm Jar) 1 applic TOPICAL HS PRN PRN Reason: WOUND PAIN Linagliptin (Linagliptin 5 Mg Tablet) 5 mg PO DAILY@1700 [facility] Last Admin: 08/17/21 17:15 Dose: Not Given Lorazepam (Lorazepam 1 Mg Tab) 1 mg PO Q4H PRN PRN Reason: Anxiety Lorazepam (Lorazepam 1 Mg Tab) 1 mg PO BID@1000,1700 [facility] Last Admin: 08/17/21 17:07 Dose: 1 mg Magnesium Hydroxide (Magnesium Hydroxide 2,400 Mg/10 Ml Cup) 2,400 mg PO Q48H PRN PRN Reason: Constipation Methyl Salicylate (Methyl Salicylate-Menthol Oint (3 Oz Tube)) 1 applic TOPICAL DAILY PRN PRN Reason: pain Metoprolol Tartrate (Metoprolol Tartrate 25 Mg Tab) 25 mg PO TID [facility] Last Admin: 08/17/21 17:07 Dose: 25 mg Midodrine (Midodrine 5 Mg Tab) 5 mg PO AC-TID [facility] Last Admin: 08/17/21 17:07 Dose: 5 mg Miscellaneous Information (Warfarin Per Pharmacy) 1 each MISCELLANE DIRECTED PRN; Protocol PRN Reason: Per Protocol Multivitamins (Multivitamins, Thera 1 Each Tab) 1 each PO DAILY@1700 [facility] Last Admin: 08/17/21 17:07 Dose: 1 each Naloxone HCl (Naloxone 0.4 Mg/Ml 1 Ml Vial) 0.2 mg IV Q2M PRN PRN Reason: Opioid Reversal Nystatin (Nystatin 100,000 Unit/Gm Powd 15 Gm) 1 applic TOPICAL BID [facility]; Protocol Last Admin: 08/17/21 12:54 Dose: 1 applic Nystatin (Nystatin 100,000unit/Gm Cream 30 Gm Tube) 1 applic TOPICAL BID [facility] Last Admin: 08/17/21 09:09 Dose: 1 applic Pantoprazole Sodium (Pantoprazole 40 Mg Tablet) 40 mg PO HS@2200 [facility] Last Admin: 08/16/21 21:30 Dose: 40 mg Quetiapine Fumarate (Quetiapine 50 Mg Tab) 50 mg PO DAILY@1200 [facility] Last Admin: 08/17/21 12:49 Dose: 50 mg Quetiapine Fumarate (Quetiapine 100 Mg Tab) 300 mg PO HS@2300 [facility] Last Admin: 08/16/21 23:52 Dose: Not Given Simethicone (Simethicone 80 Mg Chewable) 80 mg PO PC-TID PRN PRN Reason: UPPERGASTRIC DISTRESS Triamcinolone Acetonide (Triamcinolone 0.1% Cream 80 Gm Tube) 1 applic TOPICAL BID [facility] Last Admin: 08/17/21 09:09 Dose: 1 applic PHYSICAL EXAMINATION: GENERAL: The patient is alert and oriented x3, morbidly obese Well developed, well nourished. less anxious today and on bipap with an FI02 of 40% and peep is 5 HEENT: Pupils are round and equally reacting to light. EOMI. no scleral icterus. No conjunctival pallor. Normocephalic, atraumatic. No pharyngeal erythema. No thyromegaly. CARDIOVASCULAR: S1 and S2 muffled PULMONARY: diminished breath sounds bilaterally with some crackles and scattered rhonchi noted. ABDOMEN: soft. Nontender on exam. obese. non-distended, normoactive bowel sounds. No palpable organomegaly. MUSCULOSKELETAL: No joint swelling or deformity. EXTREMITIES: No cyanosis, clubbing, or pedal edema. Generalized edema noted throughout NEUROLOGICAL: Gross neurological examination did not reveal any focal deficits. Diffuse weakness SKIN: No rashes. Assessment: Atrial fibrillation with RVR new onset Congestive heart failure, acute exacerbation with preserved EF Morbid obesity with a BMI of 73.5 acute kidney injury Coagulopathy on coumadin COPD, acute exacerbation Diabetes mellitus, type 2 History of PE HIstory of esbl, MRSA Left hip wound GI prophylaxis DVT prophylaxis Full code Plan: Recommend to continue with current medications and management with cardiology following. Infectious disease following for left hip wound and will continue Local wound care and frequent position changes. Pulmonary also following and will continue on breathing inhalational treatments. Patient transitioRecommend to hold Coumadin as INR is 4.5. Transitioned to oral amiodarone and metoprolol currently rate controlled. Recommend to continue telemetry monitoring. Patient now on BiPAP and nephrology following for worsening kidney functions and significant overload and patient is maintained on IV Lasix drip with close monitoring and recommend follow-up labs. CXR with pulmonary edema, CHF. Patient is a resident at [facility] and will be returning there once stabilized and discharged. Due to multiple complex medical issues, prognosis is extremely guarded. The impression and plan of care has been dictated by Shefali Becerra, nurse practitioner as directed. Dr. Gee MD I have performed a history and examination and MDM of this patient, discussed the same with the dictator, and agree with the dictator's assessment and plan as written ,documented as a scribe. Based on total visit time, I have performed more than 50% of the visit. Any additional findings or plans will be noted. Objective - Vital Signs Vital signs: Vital Signs Temp 98.3 F 08/17/21 08:00 Pulse 99 08/17/21 08:00 Resp 10 L 08/17/21 08:00 BP 123/67 08/17/21 08:00 Pulse Ox 94 L 08/17/21 08:00 FiO2 40 08/17/21 07:10 Intake & Output 08/16/21 08/17/21 08/17/21 18:59 06:59 18:59 Intake Total 120.333 Output Total 100 50 Balance -100 70.333 Intake: Intake, IV Titration 120.333 Amount Furosemide 100 mg In 120.333 Sodium Chloride 0.9% 90 ml @ 15 MG/HR 15 mls/hr IV .Q6H40M [facility] Rx#: [id number] Output: Urine 100 50 Uretheral (Lacy) 50 Other: Voiding Method Indwelling Catheter Indwelling Catheter Indwelling Catheter # Bowel Movements 1 - Labs CBC & Chem 7: 08/17/21 08:59 08/17/21 08:59 Labs: Abnormal Lab Results - Last 24 Hours (Table) 08/16/21 08/16/21 08/16/21 Range/Units 11:45 16:44 17:55 POC Glucose (mg/dL) 100 H 100 H (75-99) mg/dL Urine Appearance Turbid H (Clear) Urine Protein 2+ H (Negative) Urine Blood Large H (Negative) Ur Leukocyte Esterase Large H (Negative) Urine RBC >182 H (0-5) /hpf Urine WBC >182 H (0-5) /hpf Urine WBC Clumps Many H (None) /hpf Urine Bacteria Few H (None) /hpf Hyaline Casts 58 H (0-2) /lpf Urine Mucus Few H (None) /hpf Urine Yeast (Budding) Many H (None) /hpf 08/16/21 08/17/21 Range/Units 20:24 01:56 POC Glucose (mg/dL) 114 H 104 H (75-99) mg/dL Urine Appearance (Clear) Urine Protein (Negative) Urine Blood (Negative) Ur Leukocyte Esterase (Negative) Urine RBC (0-5) /hpf Urine WBC (0-5) /hpf Urine WBC Clumps (None) /hpf Urine Bacteria (None) /hpf Hyaline Casts (0-2) /lpf Urine Mucus (None) /hpf Urine Yeast (Budding) (None) /hpf
[2021-08-17 20:10] LABS: Glucose,Whole Blood 91 mg/dL (75-99)
[2021-08-17] MEDS: ATORVASTATIN 20 MG TAB PO SCH (21:14)
[2021-08-17] MEDS: PANTOPRAZOLE 40 MG TABLET PO SCH (21:14)
[2021-08-17] MEDS: QUEtiapine 100 MG TAB PO SCH (21:15)
[2021-08-18] MEDS: FUROSEMIDE 100 MG in SODIUM CHLORIDE 0.9% 90 ML IV SCH ×3 (05:22→21:37)
[2021-08-18 06:16] LABS: Glucose,Whole Blood 87 mg/dL (75-99)
[2021-08-18] MEDS: INSULIN ASPART (NovoLOG) 100 UNIT/ML VIAL SQ SCH ×4 (06:16→20:42)
[2021-08-18] MEDS: MIDODRINE 5 MG TAB PO SCH ×3 (06:59→18:06)
[2021-08-18] MEDS: IPRATROPIUM-ALBUTEROL 3 ML NEB INHALATION SCH ×3 (07:21→18:59)
--- NOTE | 2021-08-18 07:21 | P.PN ---
Subjective Progress Note Date: 08/15/21 Principal diagnosis: Left lateral thigh wound/rash, groin Cutaneous candidiasis Patient is a 65-year-old female with multiple comorbidities morbid obesity presented to the hospital with increasing shortness of breath patient was also noticed to have a extensive bilateral groin area Cutaneous candidiasis and also an erythematous patch to the left lateral thigh area. On today's evaluation that is 08/15/2021, the patient is afebrile, the patient denies any chest pain , complaining of no worsening shortness of breath but no cough, no abdominal pain or pain to the left lateral thigh area Objective - Vital Signs Vital signs: Vital Signs Temp 97.6 F 08/15/21 09:00 Pulse 88 08/15/21 11:47 Resp 18 08/15/21 09:00 BP 95/76 08/15/21 09:00 Pulse Ox 92 L 08/15/21 09:00 FiO2 40 08/11/21 14:53 Intake & Output 08/14/21 08/15/21 08/15/21 18:59 06:59 18:59 Intake Total 922.49 120 250 Output Total 0 100 0 Balance 922.49 20 250 Intake: IV 80 .9 80 Intake, IV Titration 242.49 250 Amount Heparin Sod,Pork in 0.45% 242.49 NaCl 25,000 unit In 0.45 % NaCl 1 250ml.bag @ 5. 151 UNITS/KG/HR 10 mls/hr IV .Q24H [facility] Rx#: [id number] Sodium Chloride 0.9% 250 250 ml @ 999 mls/hr IV .Q16M [facility] Rx#:[id number] Oral 600 120 Output: Urine 0 100 0 Uretheral (Claros) 100 Other: Voiding Method Indwelling Catheter Indwelling Catheter Indwelling Catheter # Bowel Movements 0 - Exam GENERAL DESCRIPTION: An elderlyfemale lying in bed in no distress RESPIRATORY SYSTEM: Unlabored breathing , decreased breath sounds at bases HEART: S1 S2 regular rate and rhythm , ABDOMEN: Soft , no tenderness EXTREMITIES: Diffuse swelling bilateral lower extremity with an erythematous patch to left lateral thigh - Labs CBC & Chem 7: 08/17/21 08:59 08/17/21 08:59 Labs: Abnormal Lab Results - Last 24 Hours (Table) 08/14/21 08/15/21 08/15/21 Range/Units 21:09 08:30 08:30 PT 28.3 H (9.0-12.0) sec INR 2.8 H (<1.2) APTT 63.3 H (22.0-30.0) sec Sodium 133 L (137-145) mmol/L Chloride 86 L (98-107) mmol/L Carbon Dioxide 38 H (22-30) mmol/L BUN 46 H (7-17) mg/dL Creatinine 1.82 H (0.52-1.04) mg/dL POC Glucose (mg/dL) 122 H (75-99) mg/dL Assessment and Plan (1) Non-healing skin lesion Current Visit: No Status: Acute Code(s): L98.9 - DISORDER OF THE SKIN AND SUBCUTANEOUS TISSUE, UNSPECIFIED SNOMED Code(s): 67978885 Plan: 1patient with left lateral thigh wound with no evidence of any cellulitis and oozing could be related to the fluid overload state continue with the Mycolog cream applied twice a day. 2 Patient with bilateral groin area cutaneous candidiasis but no cellulitis we will apply nystatin powder twice a day.
--- NOTE | 2021-08-18 07:22 | P.PN ---
Subjective Progress Note Date: 08/16/21 Principal diagnosis: Left lateral thigh wound/rash, groin Cutaneous candidiasis Patient is a 65-year-old female with multiple comorbidities morbid obesity presented to the hospital with increasing shortness of breath patient was also noticed to have a extensive bilateral groin area Cutaneous candidiasis and also an erythematous patch to the left lateral thigh area. On today's evaluation that is 08/16/2021, the patient continues to be afebrile, the patient denies any chest pain the patient has been complaining of worsening shortness of breath and is requiring BiPAP , no abdominal pain or pain to the left lateral thigh area Objective - Vital Signs Vital signs: Vital Signs Temp 97.7 F 08/16/21 19:59 Pulse 95 08/16/21 19:59 Resp 22 08/16/21 20:00 BP 121/81 08/16/21 19:59 Pulse Ox 99 08/16/21 19:59 FiO2 40 08/16/21 22:49 Intake & Output 08/16/21 08/16/21 08/17/21 06:59 18:59 06:59 Intake Total 60.833 Output Total 50 100 Balance -50 -100 60.833 Intake: Intake, IV Titration 60.833 Amount Furosemide 100 mg In 60.833 Sodium Chloride 0.9% 90 ml @ 10 MG/HR 10 mls/hr IV .Q10H [facility] Rx#: [id number] Output: Urine 50 100 Uretheral (Claros) 50 Other: Voiding Method Indwelling Catheter Indwelling Catheter Indwelling Catheter # Bowel Movements 1 - Exam GENERAL DESCRIPTION: An elderlyfemale lying in bed in no distress RESPIRATORY SYSTEM: Unlabored breathing , decreased breath sounds at bases HEART: S1 S2 regular rate and rhythm , ABDOMEN: Soft , no tenderness EXTREMITIES: Diffuse swelling bilateral lower extremity with an erythematous patch to left lateral thigh - Labs CBC & Chem 7: 08/17/21 08:59 08/17/21 08:59 Labs: Abnormal Lab Results - Last 24 Hours (Table) 08/15/21 08/15/21 08/16/21 Range/Units 23:31 23:49 07:58 PT (9.0-12.0) sec INR (<1.2) ABG pH 7.33 L (7.35-7.45) ABG pCO2 76 H* (35-45) mmHg ABG HCO3 40 H* (21-25) mmol/L ABG Total CO2 42 H (19-24) mmol/L Sodium 132 L 133 L (137-145) mmol/L Potassium 5.8 H (3.5-5.1) mmol/L Chloride 90 L 87 L (98-107) mmol/L Carbon Dioxide 35 H 37 H (22-30) mmol/L BUN 52 H 50 H (7-17) mg/dL Creatinine 1.73 H 2.03 H (0.52-1.04) mg/dL Glucose 105 H 101 H (74-99) mg/dL POC Glucose (mg/dL) (75-99) mg/dL Urine Appearance (Clear) Urine Protein (Negative) Urine Blood (Negative) Ur Leukocyte Esterase (Negative) Urine RBC (0-5) /hpf Urine WBC (0-5) /hpf Urine WBC Clumps (None) /hpf Urine Bacteria (None) /hpf Hyaline Casts (0-2) /lpf Urine Mucus (None) /hpf Urine Yeast (Budding) (None) /hpf 08/16/21 08/16/21 08/16/21 Range/Units 07:58 11:45 16:44 PT 40.1 H (9.0-12.0) sec INR 4.0 H (<1.2) ABG pH (7.35-7.45) ABG pCO2 (35-45) mmHg ABG HCO3 (21-25) mmol/L ABG Total CO2 (19-24) mmol/L Sodium (137-145) mmol/L Potassium (3.5-5.1) mmol/L Chloride (98-107) mmol/L Carbon Dioxide (22-30) mmol/L BUN (7-17) mg/dL Creatinine (0.52-1.04) mg/dL Glucose (74-99) mg/dL POC Glucose (mg/dL) 100 H 100 H (75-99) mg/dL Urine Appearance (Clear) Urine Protein (Negative) Urine Blood (Negative) Ur Leukocyte Esterase (Negative) Urine RBC (0-5) /hpf Urine WBC (0-5) /hpf Urine WBC Clumps (None) /hpf Urine Bacteria (None) /hpf Hyaline Casts (0-2) /lpf Urine Mucus (None) /hpf Urine Yeast (Budding) (None) /hpf 08/16/21 08/16/21 Range/Units 17:55 20:24 PT (9.0-12.0) sec INR (<1.2) ABG pH (7.35-7.45) ABG pCO2 (35-45) mmHg ABG HCO3 (21-25) mmol/L ABG Total CO2 (19-24) mmol/L Sodium (137-145) mmol/L Potassium (3.5-5.1) mmol/L Chloride (98-107) mmol/L Carbon Dioxide (22-30) mmol/L BUN (7-17) mg/dL Creatinine (0.52-1.04) mg/dL Glucose (74-99) mg/dL POC Glucose (mg/dL) 114 H (75-99) mg/dL Urine Appearance Turbid H (Clear) Urine Protein 2+ H (Negative) Urine Blood Large H (Negative) Ur Leukocyte Esterase Large H (Negative) Urine RBC >182 H (0-5) /hpf Urine WBC >182 H (0-5) /hpf Urine WBC Clumps Many H (None) /hpf Urine Bacteria Few H (None) /hpf Hyaline Casts 58 H (0-2) /lpf Urine Mucus Few H (None) /hpf Urine Yeast (Budding) Many H (None) /hpf Assessment and Plan (1) Non-healing skin lesion Current Visit: No Status: Acute Code(s): L98.9 - DISORDER OF THE SKIN AND SUBCUTANEOUS TISSUE, UNSPECIFIED SNOMED Code(s): 34300702 Plan: 1patient with left lateral thigh wound with no evidence of any cellulitis and oozing could be related to the fluid overload state, patient to continue with the Mycolog cream applied twice a day. 2 Patient with bilateral groin area cutaneous candidiasis but no evidence of secondary cellulitis we will continue with nystatin powder twice a day. Time with Patient: Less than 30
--- NOTE | 2021-08-18 07:27 | P.PN ---
Subjective Progress Note Date: 08/17/21 Principal diagnosis: Left lateral thigh wound/rash, groin Cutaneous candidiasis Patient is a 65-year-old female with multiple comorbidities morbid obesity presented to the hospital with increasing shortness of breath patient was also noticed to have a extensive bilateral groin area Cutaneous candidiasis and also an erythematous patch to the left lateral thigh area. On today's evaluation that is 08/17/2021, the patient is afebrile, the patient is currently dependent on the BiPAP slightly lethargic and not a good historian no vomiting or diarrhea was reported by the nursing staff Objective - Vital Signs Vital signs: Vital Signs Temp 98.0 F 08/17/21 14:00 Pulse 89 08/17/21 14:00 Resp 18 08/17/21 14:00 BP 114/61 08/17/21 14:00 Pulse Ox 95 08/17/21 14:00 FiO2 40 08/17/21 13:51 Intake & Output 08/17/21 08/17/21 14:59 16:59 Intake Total 345.25 181.75 Output Total 375 200 Balance -29.75 -18.25 Intake: IV 180 Furosemide 100 mg In 180 Sodium Chloride 0.9% 90 ml @ 15 MG/HR 15 mls/hr IV .Q6H40M [facility] Rx#: [id number] Intake, IV Titration 165.25 181.75 Amount Furosemide 100 mg In 165.25 181.75 Sodium Chloride 0.9% 90 ml @ 15 MG/HR 15 mls/hr IV .Q6H40M [facility] Rx#: [id number] Output: Urine 375 200 Uretheral (Claros) 0 Other: Voiding Method Indwelling Catheter Indwelling Catheter - Exam GENERAL DESCRIPTION: An elderlyfemale lying in bed in no distress RESPIRATORY SYSTEM: Unlabored breathing , decreased breath sounds at bases HEART: S1 S2 regular rate and rhythm , ABDOMEN: Soft , no tenderness EXTREMITIES: Diffuse swelling bilateral lower extremity with an erythematous patch to left lateral thigh - Labs CBC & Chem 7: 08/17/21 08:59 08/17/21 08:59 Labs: Abnormal Lab Results - Last 24 Hours (Table) 08/17/21 08/17/21 08/17/21 Range/Units 08:59 08:59 08:59 WBC 16.2 H (3.8-10.6) k/uL Hgb 10.7 L (11.4-16.0) gm/dL MCHC 29.4 L (31.0-37.0) g/dL RDW 16.0 H (11.5-15.5) % Neutrophils # 13.0 H (1.3-7.7) k/uL PT 44.7 H (9.0-12.0) sec INR 4.5 H (<1.2) Sodium 134 L (137-145) mmol/L Chloride 87 L (98-107) mmol/L Carbon Dioxide 34 H (22-30) mmol/L BUN 56 H (7-17) mg/dL Creatinine 2.05 H (0.52-1.04) mg/dL POC Glucose (mg/dL) (75-99) mg/dL 08/17/21 Range/Units 16:24 WBC (3.8-10.6) k/uL Hgb (11.4-16.0) gm/dL MCHC (31.0-37.0) g/dL RDW (11.5-15.5) % Neutrophils # (1.3-7.7) k/uL PT (9.0-12.0) sec INR (<1.2) Sodium (137-145) mmol/L Chloride (98-107) mmol/L Carbon Dioxide (22-30) mmol/L BUN (7-17) mg/dL Creatinine (0.52-1.04) mg/dL POC Glucose (mg/dL) 74 L (75-99) mg/dL Microbiology - Last 24 Hours (Table) 08/17/21 15:18 Urine Culture - Preliminary Urine,Catheterized Assessment and Plan (1) Non-healing skin lesion Current Visit: No Status: Acute Code(s): L98.9 - DISORDER OF THE SKIN AND SUBCUTANEOUS TISSUE, UNSPECIFIED SNOMED Code(s): 97049277 Plan: 1patient with left lateral thigh wound with no evidence of any cellulitis and oozing could be related to the fluid overload state, patient to continue with the Mycolog cream applied twice a day. 2 Patient with bilateral groin area cutaneous candidiasis but no evidence of secondary cellulitis we will continue with nystatin powder twice a day. 3-patient did have a worsening of leukocytosis. We will check Blood cultures check a chest x-ray, check inflammatory markers
[2021-08-18] MEDS: ESCITALOPRAM 20 MG TAB PO SCH (08:46)
[2021-08-18] MEDS: CHOLECALCIFEROL 25 MCG (1000 IU) TABLET PO SCH (08:46)
[2021-08-18] MEDS: DOCUSATE 100 MG CAP PO SCH (08:46)
[2021-08-18] MEDS: METOPROLOL TARTRATE 25 MG TAB PO SCH ×3 (08:46→21:28)
[2021-08-18] MEDS: LACTOBACILLUS ACIDOPH & BULGAR 1 EACH PACKET PO SCH (08:46)
[2021-08-18] MEDS: FERROUS SULFATE 325 MG TAB PO SCH ×2 (08:46→18:05)
[2021-08-18] MEDS: FOLIC ACID 1 MG TAB PO SCH (08:47)
[2021-08-18] MEDS: LEVOTHYROXINE 88 MCG TAB PO SCH (08:47)
[2021-08-18] MEDS: AMIODARONE 200 MG TAB PO SCH ×2 (08:47→21:28)
[2021-08-18] MEDS: TRIAMCINOLONE 0.1% CREAM 80 GM TUBE TOPICAL SCH ×2 (08:48→21:28)
[2021-08-18] MEDS: NYSTATIN 100,000 UNIT/GM POWD 15 GM TOPICAL SCH ×2 (08:48→21:28)
[2021-08-18] MEDS: NYSTATIN 100,000UNIT/GM CREAM 30 GM TUBE TOPICAL SCH ×2 (08:48→21:28)
--- NOTE | 2021-08-18 09:21 | XR ---
EXAMINATION TYPE: XR chest 1V portable DATE OF EXAM: 08/18/2021 COMPARISON: 08/15/2021 HISTORY: Shortness of breath TECHNIQUE: Single frontal view of the chest is obtained. FINDINGS: Heart is enlarged and there is bilateral infiltrate and pleural effusion on the left. Diff use interstitial pattern with no pneumothorax. Arthropathy of the shoulders with diffuse osteopenia. IMPRESSION: Diffuse pleural-parenchymal changes stable correlate for CHF versus diffuse pneumonia.
[2021-08-18 10:02] LABS: Prothrombin Time 59.4 sec (9.0-12.0)
[2021-08-18 10:19] LABS: INR 5.9 (<1.2)
[2021-08-18] MEDS ORDERED: PHYTONADIONE 5 MG in SODIUM CHLORIDE 0.9% 50 ML IVPB STA (10:45)
[2021-08-18 10:48] LABS: Calcium 9.1 mg/dL (8.4-10.2); Potassium 4.4 mmol/L (3.5-5.1)
--- NOTE | 2021-08-18 11:52 | P.PN ---
Subjective Progress Note Date: 08/18/21 Principal diagnosis: Shortness of breath On 08/17/2021 patient seen in follow-up on selective care unit. She is awake and alert, in no acute distress, she has been wearing BiPAP intermittently, she is currently on nasal cannula, patient remains on IV Lasix at 50 mg/h. However her urine output has been very minimal, and patient still has significant generalized edema and significant lower extremity edema. Renal function continues to worsen and on today's labs BUN is 56, and creatinine is 2.05. Sodium is 134, potassium is 4.3. Urinalysis showed evidence of acute urinary tract infection. White blood cell count has increased and is up to 16.2, hemoglobin is 10.7. INR is 4.5. No nausea or vomiting, although her appetite is poor. No Complains of chest discomfort. No coughing or wheezing, no fever or chills. On 08/18/2021 patient seen in follow-up on selective care unit, she is awake, answering questions appropriately, she did wear BiPAP support pressures of 12 and 4, and FiO2 40% overnight, she is currently on 4 L of oxygen pulse ox is 93%, she is afebrile, blood pressure is been stable. She remains on Lasix infusion at 15 mg per hour, she is only in -48 cc negative fluid balance over the last 24 hours, she has produced 575 ML of urine, and remains significantly fluid overloaded with anasarca, significant peripheral edema. Chest x-ray today showed diffuse pleural parenchymal changes that are stable in appearance related to CHF. Today's labs have been reviewed, INR is 5.9, sodium is 133, potassium is 4.4, chloride is 88, CO2 is stable at 36, renal function continues to slightly worsen, and BUN is 57, creatinine is 2.22. Urinalysis showed evidence of urinary tract infection, urine culture is currently pending. Objective - Vital Signs Vital signs: Vital Signs Temp 98 F 08/18/21 08:45 Pulse 97 08/18/21 08:45 Resp 18 08/18/21 08:45 BP 122/79 08/18/21 08:45 Pulse Ox 93 L 08/18/21 08:45 FiO2 40 08/18/21 03:51 Intake & Output 05/31/22 06/01/22 06/01/22 18:59 06:59 18:59 Intake Total 345.25 181.75 Output Total 375 200 Balance -29.75 -18.25 Intake: IV 180 Furosemide 100 mg In 180 Sodium Chloride 0.9% 90 ml @ 15 MG/HR 15 mls/hr IV .Q6H40M [facility] Rx#: [id number] Intake, IV Titration 165.25 181.75 Amount Furosemide 100 mg In 165.25 181.75 Sodium Chloride 0.9% 90 ml @ 15 MG/HR 15 mls/hr IV .Q6H40M [facility] Rx#: [id number] Output: Urine 375 200 Uretheral (Claros) 0 Other: Voiding Method Indwelling Catheter Indwelling Catheter Indwelling Catheter - Exam GENERAL EXAM: Alert, very pleasant, 65-year-old morbidly obese white female, on nasal cannula and BiPAP support intermittently, comfortable in no apparent distress. HEAD: Normocephalic/atraumatic. EYES: Normal reaction of pupils, equal size. Conjunctiva pink, sclera white. NOSE: Clear with pink turbinates. THROAT: No erythema or exudates. NECK: No masses, no JVD, no thyroid enlargement, no adenopathy. CHEST: No chest wall deformity. Symmetrical expansion. LUNGS: Equal air entry with no crackles, wheeze, rhonchi or dullness. CVS: Regular rate and rhythm, normal S1 and S2, no gallops, no murmurs, no rubs ABDOMEN: Soft, obese, nontender No hepatosplenomegaly, normal bowel sounds, no guarding or rigidity. EXTREMITIES: No clubbing, 3+ lower extremity edema no cyanosis, 2+ pulses and upper and lower extremities. MUSCULOSKELETAL: Muscle strength and tone normal. SPINE: No scoliosis or deformity SKIN: No rashes CENTRAL NERVOUS SYSTEM: Alert and oriented -3. No focal deficits, tone is normal in all 4 extremities. PSYCHIATRIC: Alert and oriented -3. Appropriate affect. Intact judgment and insight. - Labs CBC & Chem 7: 08/17/21 08:59 08/18/21 09:12 Labs: Abnormal Lab Results - Last 24 Hours (Table) 08/17/21 08/18/21 08/18/21 Range/Units 16:24 09:12 09:12 PT 59.4 H (9.0-12.0) sec INR 5.9 H* (<1.2) Sodium (137-145) mmol/L Chloride (98-107) mmol/L Carbon Dioxide (22-30) mmol/L BUN (7-17) mg/dL Creatinine (0.52-1.04) mg/dL POC Glucose (mg/dL) 74 L (75-99) mg/dL C-Reactive Protein 9.0 H (<1.0) mg/dL 08/18/21 Range/Units 09:12 PT (9.0-12.0) sec INR (<1.2) Sodium 133 L (137-145) mmol/L Chloride 88 L (98-107) mmol/L Carbon Dioxide 36 H (22-30) mmol/L BUN 57 H (7-17) mg/dL Creatinine 2.22 H (0.52-1.04) mg/dL POC Glucose (mg/dL) (75-99) mg/dL C-Reactive Protein (<1.0) mg/dL Microbiology - Last 24 Hours (Table) 08/17/21 15:18 Urine Culture - Preliminary Urine,Catheterized Assessment and Plan Plan: Assessment: #1. Acute shortness of breath, acute on chronic with evidence of worsening CHF with diastolic dysfunction. Chest x-ray findings are consistent with CHF, cardiomegaly and pulmonary edema and increased lower extremity edema related to decompensated CHF. #2. Acute on chronic hypoxic/hypercapnic respiratory failure on BiPAP alternating with nasal cannula #3. Acute kidney injury patient is oliguric, nephrology is on the case. Patient is having minimal urine output and has poor response to diuretics #4. CHF with probable biventricular diastolic heart failure with acute decompensation is significant volume overload #5. New onset atrial fibrillation, currently controlled with oral amiodarone and metoprolol #6. Chronic hypoxic respiratory failure #7. Morbid obesity with BMI of 73.5 kg/m #8. Chronic hypoxic and hypercapnic respiratory failure with a component of obesity hypoventilation syndrome #9. Hypertension #10. Previous history of pulmonary embolism on Coumadin #11. Hypothyroidism #12. Chronic lower extremity edema #13. Diabetes mellitus #14. Resident of a extended care facility Plan: Today's chest x-ray has been reviewed, showing stable diffuse bilateral infiltrates and pleural effusion on the left Clinical patient still remains quite significantly fluid overloaded, and her response to diuretics have been suboptimal We'll defer to nephrology on diuretic management We'll add IV Rocephin for possibility urinary tract infection Awaiting urinary cultures Continue BiPAP support at night, nasal cannula during the day and titrate FiO2 to keep O2 saturation is at or above 88% Overall prognosis is guarded We'll continue to closely follow I have personally seen and examined the patient, performed the documentation and the assessment and plan as written. Number of minutes spent on the visit: [10] Time with Patient: Less than 30
[2021-08-18 12:02] LABS: Glucose,Whole Blood 100 mg/dL (75-99)
--- NOTE | 2021-08-18 12:52 | P.PN ---
Subjective This is a 65-year-old female with a past medical history significant for COPD, hypertension, hypothyroidism, and PE/DVT on Coumadin. Patient was last seen in the office in [address] Carlos. We have been asked to see the patient in consultation for A. fib with RVR and congestive heart failure. The patient apparently was brought to the hospital from [facility] secondary to hypoxia. The patient states when they checked her oxygen saturations on her finger she was found to be 75%. The patient was found to be in A. fib with RVR. The patient denies any history of atrial fibrillation. The patient was started on a Cardizem drip at 10 mg an hour. She remains in atrial fibrillation this morning with a heart rate in the 120s. Echocardiogram completed revealing ejection fraction 40-45%, severe right ventricular dilatation, mild tricuspid regurgitation, and moderate pericardial effusion. Patient was found to have an elevated d-dimer 1.58. CTA chest was ordered. Per nursing, this was cancelled as patient was unable to fit in CT machine due to body habitus. 08/18/2021 Patient seen and examined at bedside, no acute distress. SHe is awake oriented. She continues to reequire BIPAP overnight. 4L nasal cannula this morning. No chest pain. Denies shortness of breath. Patient anuric. Over the last 24 hours, she has produced 575 ML of urin Nephrology following, plan for patient to be started on dialysis soon. She remains in atrial fibrillation with controlled ventricular rates. PHYSICAL EXAM: VITAL SIGNS: Reviewed. GENERAL: In no acute distress. HEENT: Neck supple. No JVD LUNGS: Respirations even and unlabored. Lungs diminished to auscultation bilaterally. HEART: Irregular rate and rhythm. S1 and S2 heard. ABDOMEN: Soft. Nondistended. Nontender. EXTREMITIES: Normal range of motion. No clubbing or cyanosis. Peripheral pu lses intact. Bilateral lower extremity edema present NEUROLOGIC: Somnolent on BIPAP ASSESSMENT: New onset Paroxysmal atrial fibrillation with RVR Acute hypoxic respiratory failure Acute on chronic heart failure with preserved ejection fraction COPD Hypertension Hypothyroidism History of PE/DVT on Coumadin Diabetes Moderate pericardial effusion Elevated d-dimer, unable to have CTA due to body habitus Acute kidney injury CO2 narcosis Morbid obesity PLAN: Continue telemetry monitoring Continue oral amio 400mg BID (started on 08/13/21) Transitioned to PO amiodarone 200mg BID today. HRs currently predominantly controlled in the 80s-90s Contiue metoprolol to 25mg TID Continue Coumadin for INR of 2.0-3.0, currently supratheraputic and on hold Patient has not been eating or drinking and increased creatinine noted. Nephrology following, plan to initiate dialysis, however, INR 5.9 Monitor neurolgic status with CO2 narcosis. Further recommendations pending patient's course Nurse practitioner note has been reviewed by physician. Signing provider agrees with the documented findings, assessment, and plan of care. Objective - Vital Signs Vital signs: Vital Signs Temp 97.6 F 08/17/21 11:47 Pulse 89 08/17/21 11:47 Resp 10 L 08/17/21 11:47 BP 98/53 08/17/21 11:47 Pulse Ox 95 08/17/21 11:47 FiO2 40 08/17/21 11:18 Intake & Output 08/16/21 08/17/21 08/17/21 18:59 06:59 18:59 Intake Total 120.333 100 Output Total 100 50 225 Balance -100 70.333 -125 Intake: Intake, IV Titration 120.333 100 Amount Furosemide 100 mg In 120.333 100 Sodium Chloride 0.9% 90 ml @ 15 MG/HR 15 mls/hr IV .Q6H40M [facility] Rx#: [id number] Output: Urine 100 50 225 Uretheral (Claros) 50 0 Other: Voiding Method Indwelling Catheter Indwelling Catheter Indwelling Catheter # Bowel Movements 1 - Labs CBC & Chem 7: 08/17/21 08:59 08/18/21 09:12 Labs: Abnormal Lab Results - Last 24 Hours (Table) 08/16/21 08/16/21 08/16/21 Range/Units 16:44 17:55 20:24 WBC (3.8-10.6) k/uL Hgb (11.4-16.0) gm/dL MCHC (31.0-37.0) g/dL RDW (11.5-15.5) % Neutrophils # (1.3-7.7) k/uL PT (9.0-12.0) sec INR (<1.2) Sodium (137-145) mmol/L Chloride (98-107) mmol/L Carbon Dioxide (22-30) mmol/L BUN (7-17) mg/dL Creatinine (0.52-1.04) mg/dL POC Glucose (mg/dL) 100 H 114 H (75-99) mg/dL Urine Appearance Turbid H (Clear) Urine Protein 2+ H (Negative) Urine Blood Large H (Negative) Ur Leukocyte Esterase Large H (Negative) Urine RBC >182 H (0-5) /hpf Urine WBC >182 H (0-5) /hpf Urine WBC Clumps Many H (None) /hpf Urine Bacteria Few H (None) /hpf Hyaline Casts 58 H (0-2) /lpf Urine Mucus Few H (None) /hpf Urine Yeast (Budding) Many H (None) /hpf 08/17/21 08/17/21 08/17/21 Range/Units 01:56 08:59 08:59 WBC 16.2 H (3.8-10.6) k/uL Hgb 10.7 L (11.4-16.0) gm/dL MCHC 29.4 L (31.0-37.0) g/dL RDW 16.0 H (11.5-15.5) % Neutrophils # 13.0 H (1.3-7.7) k/uL PT 44.7 H (9.0-12.0) sec INR 4.5 H (<1.2) Sodium (137-145) mmol/L Chloride (98-107) mmol/L Carbon Dioxide (22-30) mmol/L BUN (7-17) mg/dL Creatinine (0.52-1.04) mg/dL POC Glucose (mg/dL) 104 H (75-99) mg/dL Urine Appearance (Clear) Urine Protein (Negative) Urine Blood (Negative) Ur Leukocyte Esterase (Negative) Urine RBC (0-5) /hpf Urine WBC (0-5) /hpf Urine WBC Clumps (None) /hpf Urine Bacteria (None) /hpf Hyaline Casts (0-2) /lpf Urine Mucus (None) /hpf Urine Yeast (Budding) (None) /hpf 08/17/21 Range/Units 08:59 WBC (3.8-10.6) k/uL Hgb (11.4-16.0) gm/dL MCHC (31.0-37.0) g/dL RDW (11.5-15.5) % Neutrophils # (1.3-7.7) k/uL PT (9.0-12.0) sec INR (<1.2) Sodium 134 L (137-145) mmol/L Chloride 87 L (98-107) mmol/L Carbon Dioxide 34 H (22-30) mmol/L BUN 56 H (7-17) mg/dL Creatinine 2.05 H (0.52-1.04) mg/dL POC Glucose (mg/dL) (75-99) mg/dL Urine Appearance (Clear) Urine Protein (Negative) Urine Blood (Negative) Ur Leukocyte Esterase (Negative) Urine RBC (0-5) /hpf Urine WBC (0-5) /hpf Urine WBC Clumps (None) /hpf Urine Bacteria (None) /hpf Hyaline Casts (0-2) /lpf Urine Mucus (None) /hpf Urine Yeast (Budding) (None) /hpf
--- NOTE | 2021-08-18 15:40 | PN ---
PROGRESS NOTE The patient is seen for followup for acute kidney injury and volume overload. The patient has had poor urine output and was started on Lasix drip. Initially, she continued to have no significant urine output. However, it appears that she did put out about 575 mL for the last 24 hours, which also continues to be low. The patient's mentation seems to have improved as compared to on initial admission. Patient was being considered for dialysis. However, her INR remains elevated and given the improvement in urine output, I will hold off on dialysis for now. On examination today, blood pressure was 122/79, heart rate 97 per minute. Patient is afebrile. Examination of the heart S1, S2. Examination of the lungs, bilateral breath sounds are heard. Abdomen is soft, morbidly obese. Examination of lower extremities edema 2+ to 3+ bilaterally with chronic skin changes. [employer] exam shows patient moving all 4 extremities. Mentation is much improved. She is answering questions appropriately. LAB: Show sodium 133, potassium 4.4, BUN 37, serum creatinine 2.2. ASSESSMENT: 1. Acute kidney injury ATN associated with hypotension/hypoperfusion and an element of cardiorenal syndrome. Initially oliguric, currently with some improvement in urine output, although urine output still remains low. The patient is maintained on Lasix drip which I will continue. 2. Volume overload with chronic lower extremity edema, chronic hypoxic and hypercapnic respiratory failure, currently maintained on Lasix drip. 3. Atrial fibrillation with RVR. 4. Chronic diastolic heart failure. 5. History of PE maintained on anticoagulation. 6. Morbid obesity. PLAN: Continue with Lasix drip. Continue to monitor urine output. Hold off on dialysis as urine output seems to be improving and patient's INR is also elevated at 5.4. Mentation has improved as well. We will continue to monitor for now. MMODL / IJN: [id number] / MTDD
[2021-08-18 16:47] LABS: Glucose,Whole Blood 97 mg/dL (75-99)
[2021-08-18] MEDS ORDERED: WARFARIN 0.5 MG TAB PO ONE (18:00)
[2021-08-18] MEDS: MULTIVITAMINS, THERA 1 EACH TAB PO SCH (18:05)
[2021-08-18] MEDS: LINAGLIPTIN 5 MG TABLET PO SCH (18:05)
[2021-08-18] MEDS: CALCIUM CARBONATE 500 MG CHEWABLE PO SCH (18:05)
[2021-08-18] MEDS: CYANOCOBALAMIN 500 MCG TAB PO SCH (18:05)
[2021-08-18] MEDS: ASCORBIC ACID 500 MG TAB PO SCH (18:05)
[2021-08-18] MEDS: CALCIUM CARB-VIT D 500 MG-5 MCG TAB PO SCH (18:05)
[2021-08-18 18:49] LABS: Appearance,Urine Cloudy (Clear); Bacteria,Urine Many /hpf; Bilirubin,Urine Negative (Negative); Blood,Urine Large (Negative); Color,Urine Light Yellow; Glucose,Urine (UA) Negative (Negative); Hyaline Casts,Urine 1 /lpf (0-2); Ketones,Urine Negative (Negative); Leukocyte Esterase,Urine Large (Negative); Mucus,Urine Rare /hpf; Nitrite,Urine Negative (Negative); Protein,Urine Negative (Negative); RBC,Urine 153 /hpf (0-5); Specific Gravity,Urine 1.006 (1.001-1.035); Urobilinogen,Urine <2.0 mg/dL (<2.0); WBC,Urine 24 /hpf (0-5)
[2021-08-18 19:01] LABS: Hepatitis B Surface AB- Quant 3.5 mIU/mL; Hepatitis B Surface Antibody Nonreactive (Nonreactive)
[2021-08-18 20:23] LABS: Glucose,Whole Blood 147 mg/dL (75-99)
[2021-08-18 20:36] LABS: Hepatitis B Surface Antigen Nonreactive (Nonreactive)
[2021-08-18] MEDS: ATORVASTATIN 20 MG TAB PO SCH (21:28)
[2021-08-18] MEDS: PANTOPRAZOLE 40 MG TABLET PO SCH (21:42)
--- NOTE | 2021-08-18 23:22 | P.PN ---
Subjective Progress Note Date: 08/18/21 Principal diagnosis: Left lateral thigh wound/rash, groin Cutaneous candidiasis Patient is a 65-year-old female with multiple comorbidities morbid obesity presented to the hospital with increasing shortness of breath patient was also noticed to have a extensive bilateral groin area Cutaneous candidiasis and also an erythematous patch to the left lateral thigh area. On today's evaluation that is 08/18/2021, the patient remains to be afebrile, the patient is breathing slightly comfortably and is currently on a BiPAP, the patient denies having any chest pain, some depression abdominal pain no diarrhea Objective - Vital Signs Vital signs: Vital Signs Temp 97.7 F 08/18/21 12:04 Pulse 86 08/18/21 12:04 Resp 16 08/18/21 12:04 BP 108/57 08/18/21 12:04 Pulse Ox 96 08/18/21 12:04 FiO2 40 08/18/21 03:51 Intake & Output 08/17/21 08/18/21 08/18/21 18:59 06:59 18:59 Intake Total 345.25 181.75 290 Output Total 375 200 Balance -29.75 -18.25 290 Intake: IV 180 Furosemide 100 mg In 180 Sodium Chloride 0.9% 90 ml @ 15 MG/HR 15 mls/hr IV .Q6H40M [facility] Rx#: [id number] Intake, IV Titration 165.25 181.75 50 Amount Furosemide 100 mg In 165.25 181.75 Sodium Chloride 0.9% 90 ml @ 15 MG/HR 15 mls/hr IV .Q6H40M [facility] Rx#: [id number] Phytonadione 5 mg In 50 Sodium Chloride 0.9% 50 ml @ 100 mls/hr [facility] Rx#:[id number] Oral 240 Output: Urine 375 200 Uretheral (Claros) 0 Other: Voiding Method Indwelling Catheter Indwelling Catheter Indwelling Catheter - Exam GENERAL DESCRIPTION: An elderlyfemale lying in bed in no distress RESPIRATORY SYSTEM: Unlabored breathing , decreased breath sounds at bases HEART: S1 S2 regular rate and rhythm , ABDOMEN: Soft , no tenderness EXTREMITIES: Diffuse swelling bilateral lower extremity with an erythematous patch to left lateral thigh - Labs CBC & Chem 7: 08/17/21 08:59 08/18/21 09:12 Labs: Abnormal Lab Results - Last 24 Hours (Table) 08/17/21 08/18/21 08/18/21 Range/Units 16:24 09:12 09:12 PT 59.4 H (9.0-12.0) sec INR 5.9 H* (<1.2) Sodium (137-145) mmol/L Chloride (98-107) mmol/L Carbon Dioxide (22-30) mmol/L BUN (7-17) mg/dL Creatinine (0.52-1.04) mg/dL POC Glucose (mg/dL) 74 L (75-99) mg/dL C-Reactive Protein 9.0 H (<1.0) mg/dL 08/18/21 08/18/21 Range/Units 09:12 12:00 PT (9.0-12.0) sec INR (<1.2) Sodium 133 L (137-145) mmol/L Chloride 88 L (98-107) mmol/L Carbon Dioxide 36 H (22-30) mmol/L BUN 57 H (7-17) mg/dL Creatinine 2.22 H (0.52-1.04) mg/dL POC Glucose (mg/dL) 100 H (75-99) mg/dL C-Reactive Protein (<1.0) mg/dL Microbiology - Last 24 Hours (Table) 08/17/21 15:18 Urine Culture - Preliminary Urine,Catheterized Assessment and Plan (1) Non-healing skin lesion Current Visit: No Status: Acute Code(s): L98.9 - DISORDER OF THE SKIN AND SUBCUTANEOUS TISSUE, UNSPECIFIED SNOMED Code(s): 17399603 Plan: 1patient with left lateral thigh wound with no evidence of any cellulitis and oozing could be related to the fluid overload state, patient to continue with the Mycolog cream applied twice a day. 2 Patient with bilateral groin area cutaneous candidiasis but no evidence of secondary cellulitis we will continue with nystatin powder twice a day. 3-patient did have leukocytosis chest x-rays mostly bilateral diffuse infiltrate, CRP and procalcitonin mildly elevated, Rocephin has been added Time with Patient: Less than 30
--- NOTE | 2021-08-19 01:31 | P.PN ---
Subjective Progress Note Date: 08/18/21 This 65-year-old female was recently admitted with CHF and atrial fibrillation cardio following closely. Patient was maintained on IV Cardizem which is currently being transitioned IV amiodarone along with IV heparin. 2-D echo was ordered and pending at this time. Patient continues on 2 L of oxygen via nasal cannula at 90% oxygen pulse ox and continues to report shortness of breath and generalized weakness. Patient is morbidly obese with a BMI of 73.5 and resides in [place] Patient's blood pressure is elevated and will initiate Norvasc 10 mg daily and monitor closely. Infectious disease also consulted for a wound on the left hip along with pulmonary for COPD acute exacerbation. Patient denies any chest pain and patient is afebrile. 08/13/2021 Patient is seen today in follow up and continues to report shortness of breath. Cardiology and pulmonary and ID following. Patient is continued on bronchodilators and also continues on IV lasix. IV heparin continued and being started on coumadin. Transitioned to oral amiodarone and cardiology adjusting medications. Patient denies chest pain and is afebrile. 08/14/2021 Patient is seen this am and continues with cardiology and pulmonary following. Neprhology consulted for elevated kidney functions and patient is continued on IV lasix. US renal/bladder and pending. Patient continues with 3L via NC and breathing treatments along with IV heparin and coumadin with pharmacy to dose. Cardiology also following. Patient is afebrile and denies any chest pain. Patient reports not eating or drinking. 08/15/2021 Patient is seen today and continues with worsening renal functions and also some hypotension. Patient was maintained on IV heparin with coumadin and INR is 2.6 today and will dc heparin. Patient with hypotension and adding some midodrine and per nephro will give a 250ml bolus. Off IV lasix for now given worsening renal functions. Poor oral intake and decreased urine output from yesterday. Continue lacy catheter and encouraged oral intake. Patient is more lethargic today as well. 08/16/2021 Patient is seen in follow-up currently maintained on BiPAP and continues with shortness of breath. Multiple medical consultations following including pulmonary, nephrology, cardiology and patient continues with volume overload and is being started on IV Lasix. Patient with worsening kidney functions and decreased urine output although bladder and abdomen ultrasound showed no evidence of hydronephrosis. Patient also transition to Coumadin and INR is 4.0 and recommend to hold Coumadin and repeat labs. Sodium is 133 with a potassium of 4.3, BUN is 50, creatinine is 2.03. Patient not really tolerating any oral diet and difficult given the BiPAP is continuous at this time. Patient is anxious with family friend at the bedside. Patient is afebrile and denies any chest pain. Patient to continue with local wound care per ID with frequent position changes as well. 08/17/2021 Patient is seen this morning and continues on IV lasix drip with cardiology, pulmonary, and nephrology following. Patient is on bipap and continues with poor oral intake and minimal urine output. Indwelling catheter for strict monitoring of intake and output. Patient did have some brief periods of attempting nasal cannula and was able to take medications and have 2cups of applesauce per staff educator. WBC is elevated and CXR ordered. Patient is afebrile and denies chest pain. 08/18/2021 Patient is seen in follow-up this morning continues on IV Lasix drip with nephrology and cardiology following closely. Patient also continues on IV ceftriaxone and also has been transitioned and titrated down on oral amiodarone. Patient morning labs pending at this time and patient is normally on Coumadin although currently held as patient was having elevated INR. Will follow-up with morning labs. Patient is now off BiPAP this morning and maintained on 4 L was 93-94% oxygen saturation. Urine output is decreased but has slowly improved. Oral intake is poor. Patient is afebrile and denies any chest pain or worsening shortness of breath. Review of systems: Constitutional: reports of fatigue and weakness, no reports of fever, or chills Cardiovascular: No reports of chest pain or palpitations Respiratory: reports of shortness of breath with some improvement GI: No reports of nausea, no reports of of vomiting, poor appetite : No reports of dysuria or retention, decreased output Neurovascular: reports of generalized weakness All medications have been reviewed Active Medications Acetaminophen (Acetaminophen Tab 325 Mg Tab) 650 mg PO Q6HR PRN PRN Reason: Mild Pain or Fever > 100.5 Last Admin: 08/18/21 08:46 Dose: 650 mg Albuterol/Ipratropium (Ipratropium-Albuterol 3 Ml Neb) 3 ml INHALATION RT-TID [facility] Last Admin: 08/18/21 07:21 Dose: 3 ml Amiodarone HCl (Amiodarone 200 Mg Tab) 200 mg PO BID [facility] Last Admin: 08/18/21 08:47 Dose: 200 mg Ascorbic Acid (Ascorbic Acid 500 Mg Tab) 500 mg PO DAILY@1700 [facility] Last Admin: 08/17/21 17:07 Dose: 500 mg Atorvastatin Calcium (Atorvastatin 20 Mg Tab) 20 mg PO HS [facility] Last Admin: 08/17/21 21:14 Dose: 20 mg Bisacodyl (Bisacodyl 10 Mg Supp) 10 mg RECTAL DAILY PRN PRN Reason: Constipation Calcium Carbonate (Calcium Carb-Vit D 500 Mg-5 Mcg Tab) 1 each PO DAILY@1700 [facility] Last Admin: 08/17/21 17:07 Dose: 1 each Calcium Carbonate/Glycine (Calcium Carbonate 500 Mg Chewable) 500 mg PO DAILY@1700 [facility] Last Admin: 08/17/21 17:17 Dose: Not Given Cholecalciferol (Cholecalciferol 25 Mcg (1000 Iu) Tablet) 100 mcg PO DAILY@1200 [facility] Last Admin: 08/18/21 08:46 Dose: 100 mcg Cyanocobalamin (Cyanocobalamin 500 Mcg Tab) 500 mcg PO DAILY@1700 [facility] Last Admin: 08/17/21 17:08 Dose: 500 mcg Docusate Sodium (Docusate 100 Mg Cap) 100 mg PO DAILY@1000 [facility] Last Admin: 08/18/21 08:46 Dose: 100 mg Escitalopram Oxalate (Escitalopram 20 Mg Tab) 20 mg PO DAILY@1000 [facility] Last Admin: 08/18/21 08:46 Dose: 20 mg Ferrous Sulfate (Ferrous Sulfate 325 Mg Tab) 325 mg PO BID@1000,1700 [facility] Last Admin: 08/18/21 08:46 Dose: 325 mg Folic Acid (Folic Acid 1 Mg Tab) 0.5 mg PO DAILY@1000 [facility] Last Admin: 08/18/21 08:47 Dose: 0.5 mg Glipizide (Glipizide 2.5 Mg Tab) 2.5 mg PO DAILY@1000 [facility] Last Admin: 08/17/21 09:09 Dose: 2.5 mg Furosemide 100 mg/ Sodium (Chloride) 100 mls @ 15 mls/hr IV .Q6H40M [facility] Last Admin: 08/18/21 05:22 Dose: 15 mg/hr, 15 mls/hr Ceftriaxone Sodium 1 gm/ (Sodium Chloride) 50 mls @ 100 mls/hr IVPB Q24HR [facility]; Protocol Insulin Aspart (Insulin Aspart (Novolog) 100 Unit/Ml Vial) 0 unit SQ ACHS [facility]; Protocol Last Admin: 08/18/21 06:16 Dose: Not Given Lactobacillus Acidoph/Bulgaricus (Lactobacillus Acidoph & Bulgar 1 Each Packet) 1 each PO DAILY@1200 [facility] Last Admin: 08/18/21 08:46 Dose: 1 each Levothyroxine Sodium (Levothyroxine 88 Mcg Tab) 88 mcg PO DAILY@1000 [facility] Last Admin: 08/18/21 08:47 Dose: 88 mcg Lidocaine (Lidocaine 5% Ointment 50 Gm Jar) 1 applic TOPICAL HS PRN PRN Reason: WOUND PAIN Linagliptin (Linagliptin 5 Mg Tablet) 5 mg PO DAILY@1700 [facility] Last Admin: 08/17/21 17:15 Dose: Not Given Magnesium Hydroxide (Magnesium Hydroxide 2,400 Mg/10 Ml Cup) 2,400 mg PO Q48H PRN PRN Reason: Constipation Methyl Salicylate (Methyl Salicylate-Menthol Oint (3 Oz Tube)) 1 applic TOPICAL DAILY PRN PRN Reason: pain Metoprolol Tartrate (Metoprolol Tartrate 25 Mg Tab) 25 mg PO TID [facility] Last Admin: 08/18/21 08:46 Dose: 25 mg Midodrine (Midodrine 5 Mg Tab) 5 mg PO AC-TID [facility] Last Admin: 08/18/21 06:59 Dose: Not Given Miscellaneous Information (Warfarin Per Pharmacy) 1 each MISCELLANE DIRECTED PRN; Protocol PRN Reason: Per Protocol Multivitamins (Multivitamins, Thera 1 Each Tab) 1 each PO DAILY@1700 [facility] Last Admin: 08/17/21 17:07 Dose: 1 each Naloxone HCl (Naloxone 0.4 Mg/Ml 1 Ml Vial) 0.2 mg IV Q2M PRN PRN Reason: Opioid Reversal Nystatin (Nystatin 100,000 Unit/Gm Powd 15 Gm) 1 applic TOPICAL BID [facility]; Protocol Last Admin: 08/18/21 08:48 Dose: 1 applic Nystatin (Nystatin 100,000unit/Gm Cream 30 Gm Tube) 1 applic TOPICAL BID [facility] Last Admin: 06/01/22 08:48 Dose: 1 applic Pantoprazole Sodium (Pantoprazole 40 Mg Tablet) 40 mg PO HS@2200 [facility] Last Admin: 08/17/21 21:14 Dose: 40 mg Simethicone (Simethicone 80 Mg Chewable) 80 mg PO PC-TID PRN PRN Reason: UPPERGASTRIC DISTRESS Triamcinolone Acetonide (Triamcinolone 0.1% Cream 80 Gm Tube) 1 applic TOPICAL BID [facility] Last Admin: 08/18/21 08:48 Dose: 1 applic PHYSICAL EXAMINATION: GENERAL: The patient is alert and oriented x3, morbidly obese Well developed, well nourished. less anxious today and on 4L via NC HEENT: Pupils are round and equally reacting to light. EOMI. no scleral icterus. No conjunctival pallor. Normocephalic, atraumatic. No pharyngeal erythema. No thyromegaly. CARDIOVASCULAR: S1 and S2 muffled PULMONARY: diminished breath sounds bilaterally with some crackles and scattered rhonchi noted. ABDOMEN: soft. Nontender on exam. obese. non-distended, normoactive bowel sounds. No palpable organomegaly. MUSCULOSKELETAL: No joint swelling or deformity. EXTREMITIES: No cyanosis, clubbing, or pedal edema. Generalized edema noted throughout NEUROLOGICAL: Gross neurological examination did not reveal any focal deficits. Diffuse weakness SKIN: No rashes. Assessment: Atrial fibrillation with RVR new onset Congestive heart failure, acute exacerbation with preserved EF Morbid obesity with a BMI of 73.5 acute kidney injury Coagulopathy on coumadin COPD, acute exacerbation Diabetes mellitus, type 2 History of PE HIstory of esbl, MRSA Left hip wound GI prophylaxis DVT prophylaxis Full code Plan: Recommend to continue with current medications and management with cardiology following. Infectious disease following for left hip wound and will continue Local wound care and frequent position changes. Pulmonary also following and will continue on breathing inhalational treatments. Patient started on IV ceftriaxone. Recommend to hold Coumadin as INR is 5.9. Will give a dose of vitamin K and repeat labs. Transitioned to oral amiodarone and metoprolol currently rate controlled. Recommend to continue telemetry monitoring. Patient weaning FI02 as tolerated and currently on 4L via NC and recommend to continue with Bipap from 8pm to 8am and as needed. Nephrology following for worsening kidney functions and significant overload and patient is maintained on IV Lasix drip with close monitoring and recommend follow-up labs. Not currently requiring dialysis and will monitor output. Patient is a resident at [facility] and will be returning there once stabilized and discharged. Will discuss with case management/social work about having Bipap in the outpatient setting. Due to multiple complex medical issues, prognosis is extremely guarded. The impression and plan of care has been dictated by nurse Debo pra ctitioner as directed. Dr. Gee MD I have performed a history and examination and MDM of this patient, discussed the same with the dictator, and agree with the dictator's assessment and plan as written ,documented as a scribe. Based on total visit time, I have performed more than 50% of the visit. Any additional findings or plans will be noted. Objective - Vital Signs Vital signs: Vital Signs Temp 98 F 08/18/21 08:45 Pulse 97 08/18/21 08:45 Resp 18 08/18/21 08:45 BP 122/79 08/18/21 08:45 Pulse Ox 93 L 08/18/21 08:45 FiO2 40 08/18/21 03:51 Intake & Output 08/17/21 08/18/21 08/18/21 18:59 06:59 18:59 Intake Total 345.25 181.75 Output Total 375 200 Balance -29.75 -18.25 Intake: IV 180 Furosemide 100 mg In 180 Sodium Chloride 0.9% 90 ml @ 15 MG/HR 15 mls/hr IV .Q6H40M [facility] Rx#: [id number] Intake, IV Titration 165.25 181.75 Amount Furosemide 100 mg In 165.25 181.75 Sodium Chloride 0.9% 90 ml @ 15 MG/HR 15 mls/hr IV .Q6H40M [facility] Rx#: [id number] Output: Urine 375 200 Uretheral (Lacy) 0 Other: Voiding Method Indwelling Catheter Indwelling Catheter - Labs CBC & Chem 7: 08/17/21 08:59 08/18/21 09:12 Labs: Abnormal Lab Results - Last 24 Hours (Table) 08/17/21 08/17/21 Range/Units 08:59 16:24 Sodium 134 L (137-145) mmol/L Chloride 87 L (98-107) mmol/L Carbon Dioxide 34 H (22-30) mmol/L BUN 56 H (7-17) mg/dL Creatinine 2.05 H (0.52-1.04) mg/dL POC Glucose (mg/dL) 74 L (75-99) mg/dL Microbiology - Last 24 Hours (Table) 08/17/21 15:18 Urine Culture - Preliminary Urine,Catheterized
[2021-08-19] MEDS: FUROSEMIDE 100 MG in SODIUM CHLORIDE 0.9% 90 ML IV SCH ×4 (04:43→23:07)
[2021-08-19 06:11] LABS: Glucose,Whole Blood 89 mg/dL (75-99)
[2021-08-19] MEDS: MIDODRINE 5 MG TAB PO SCH ×4 (06:33→17:36)
[2021-08-19] MEDS: INSULIN ASPART (NovoLOG) 100 UNIT/ML VIAL SQ SCH ×4 (06:33→21:29)
[2021-08-19] MEDS: IPRATROPIUM-ALBUTEROL 3 ML NEB INHALATION SCH ×3 (07:14→20:46)
[2021-08-19] MEDS ORDERED: metOLazone 2.5 MG TAB PO SCH (09:00)
[2021-08-19 09:56] LABS: Anisocytosis Slight; Basophils % (A) 0 %; Eosinophils % (A) 0 %; HCT 39.2 % (34.0-46.0); HGB 11.2 gm/dL (11.4-16.0); Hypochromasia Marked; Lymphocytes # (A) 1.6 k/uL (1.0-4.8); Lymphocytes % (A) 10 %; MCH 27.5 pg (25.0-35.0); MCHC 28.6 g/dL (31.0-37.0); MCV 96.1 fL (80.0-100.0); Mean Platelet Volume 7.3; Monocytes # (A) 0.5 k/uL (0-1.0); Monocytes % (A) 3 %; Neutrophils # (A) 13.3 k/uL (1.3-7.7); Neutrophils % (A) 85 %; Platelet Count 388 k/uL (150-450); RBC 4.08 m/uL (3.80-5.40); RDW 16.5 % (11.5-15.5); WBC 15.6 k/uL (3.8-10.6)
[2021-08-19 10:08] LABS: INR 1.4 (<1.2); Prothrombin Time 14.9 sec (9.0-12.0)
[2021-08-19 10:15] LABS: Albumin 3.5 g/dL (3.5-5.0); Potassium 4.3 mmol/L (3.5-5.1); Total Bilirubin 0.9 mg/dL (0.2-1.3); Total Protein 7.3 g/dL (6.3-8.2)
[2021-08-19] MEDS: LEVOTHYROXINE 88 MCG TAB PO SCH (10:16)
[2021-08-19] MEDS: FOLIC ACID 1 MG TAB PO SCH (10:16)
[2021-08-19] MEDS: DOCUSATE 100 MG CAP PO SCH (10:16)
[2021-08-19] MEDS: FERROUS SULFATE 325 MG TAB PO SCH ×2 (10:16→17:36)
[2021-08-19] MEDS: ESCITALOPRAM 20 MG TAB PO SCH (10:17)
[2021-08-19] MEDS: NYSTATIN 100,000 UNIT/GM POWD 15 GM TOPICAL SCH ×2 (10:25→21:34)
[2021-08-19] MEDS: NYSTATIN 100,000UNIT/GM CREAM 30 GM TUBE TOPICAL SCH ×2 (10:27→21:34)
[2021-08-19] MEDS: TRIAMCINOLONE 0.1% CREAM 80 GM TUBE TOPICAL SCH ×2 (10:27→21:34)
--- NOTE | 2021-08-19 11:23 | P.PN ---
Subjective Patient is seen for follow-up for acute kidney injury. Renal function has been worsening She has an indwelling Claros catheter with low urine output. Blood pressure had been low for which patient is started on midodrine Patient is currently maintained on Lasix drip for volume overload and acute hypoxic and hypercapnic respiratory failure. Mentation is slightly improved Respiratory status is also improved Urine output is improved from initial admission also still remains low INR has been slowly increasing. Patient is maintained on Coumadin but has not received a dose recently. Renal replacement therapy has been discussed with the patient however event improvement in overall general condition and elevated INR I have been holding off on dialysis catheter. Objective - Vital Signs Vital signs: Vital Signs Temp 97.8 F 08/19/21 08:00 Pulse 105 H 08/19/21 08:00 Resp 18 08/19/21 08:00 BP 127/57 08/19/21 08:00 Pulse Ox 90 L 08/19/21 08:00 FiO2 40 08/19/21 04:00 Intake & Output 08/18/21 08/19/21 08/19/21 18:59 06:59 18:59 Intake Total 990 410 Output Total 475 Balance 990 -65 Weight 194.138 kg 213.7 kg Intake: IV 90 Furosemide 100 mg In 90 Sodium Chloride 0.9% 90 ml @ 15 MG/HR 15 mls/hr IV .Q6H40M [facility] Rx#: [id number] Intake, IV Titration 150 200 Amount Furosemide 100 mg In 100 200 Sodium Chloride 0.9% 90 ml @ 15 MG/HR 15 mls/hr IV .Q6H40M [facility] Rx#: [id number] Phytonadione 5 mg In 50 Sodium Chloride 0.9% 50 ml @ 100 mls/hr IVPB [facility]CE [facility] Rx#:[id number] Oral 840 120 Output: Urine 475 Other: Voiding Method Indwelling Catheter Indwelling Catheter Indwelling Catheter - Exam Awake, comfortable, maintained on nasal cannula. Off of BiPAP Alert oriented 3 On 6 questions appropriately Examination of the heart S1 and S2 Examination lungs bilateral breath sounds are heard Abdomen is soft obese Examination lower extremity shows significant chronic skin changes and significant chronic edema 3-4+ bilaterally - Labs CBC & Chem 7: 08/19/21 09:22 08/19/21 09:22 Labs: Abnormal Lab Results - Last 24 Hours (Table) 08/18/21 08/18/2122 Range/Units 09:12 12:00 20:11 WBC (3.8-10.6) k/uL Hgb (11.4-16.0) gm/dL MCHC (31.0-37.0) g/dL RDW (11.5-15.5) % Neutrophils # (1.3-7.7) k/uL PT (9.0-12.0) sec INR (<1.2) Sodium (137-145) mmol/L Chloride (98-107) mmol/L Carbon Dioxide (22-30) mmol/L BUN (7-17) mg/dL Creatinine (0.52-1.04) mg/dL Glucose (74-99) mg/dL POC Glucose (mg/dL) 100 H 147 H (75-99) mg/dL Procalcitonin 0.30 H (0.02-0.09) ng/mL Urine Appearance (Clear) Urine Blood (Negative) Ur Leukocyte Esterase (Negative) Urine RBC (0-5) /hpf Urine WBC (0-5) /hpf Urine Bacteria (None) /hpf Urine Mucus (None) /hpf 08/18/21 08/19/21 08/19/21 Range/Units Unknown 09:22 09:22 WBC 15.6 H (3.8-10.6) k/uL Hgb 11.2 L (11.4-16.0) gm/dL MCHC 28.6 L (31.0-37.0) g/dL RDW 16.5 H (11.5-15.5) % Neutrophils # 13.3 H (1.3-7.7) k/uL PT 14.9 H (9.0-12.0) sec INR 1.4 H (<1.2) Sodium (137-145) mmol/L Chloride (98-107) mmol/L Carbon Dioxide (22-30) mmol/L BUN (7-17) mg/dL Creatinine (0.52-1.04) mg/dL Glucose (74-99) mg/dL POC Glucose (mg/dL) (75-99) mg/dL Procalcitonin (0.02-0.09) ng/mL Urine Appearance Cloudy H (Clear) Urine Blood Large H (Negative) Ur Leukocyte Esterase Large H (Negative) Urine RBC 153 H (0-5) /hpf Urine WBC 24 H (0-5) /hpf Urine Bacteria Many H (None) /hpf Urine Mucus Rare H (None) /hpf 08/19/21 Range/Units 09:22 WBC (3.8-10.6) k/uL Hgb (11.4-16.0) gm/dL MCHC (31.0-37.0) g/dL RDW (11.5-15.5) % Neutrophils # (1.3-7.7) k/uL PT (9.0-12.0) sec INR (<1.2) Sodium 132 L (137-145) mmol/L Chloride 87 L (98-107) mmol/L Carbon Dioxide 38 H (22-30) mmol/L BUN 60 H (7-17) mg/dL Creatinine 2.29 H (0.52-1.04) mg/dL Glucose 113 H (74-99) mg/dL POC Glucose (mg/dL) (75-99) mg/dL Procalcitonin (0.02-0.09) ng/mL Urine Appearance (Clear) Urine Blood (Negative) Ur Leukocyte Esterase (Negative) Urine RBC (0-5) /hpf Urine WBC (0-5) /hpf Urine Bacteria (None) /hpf Urine Mucus (None) /hpf Microbiology - Last 24 Hours (Table) 08/17/21 15:18 Urine Culture - Preliminary Urine,Catheterized Gram Neg Bacilli 08/18/21 Unknown Urine Culture - Preliminary Urine,Voided Assessment and Plan Assessment: 1. Acute kidney injury, ATN. No evidence of obstruction noted on ultrasound. Patient has an indwelling Claros catheter. Blood pressure is low. Status post IV fluids initially, started on Lasix drip with some improvement in urine output noted today. Zaroxolyn added today. Renal replacement therapy currently on hold given the elevated INR and overall improvement in mentation, urine output and respiratory status. 2. Volume overload with chronic lower extremity edema and chronic hypoxic and hypercapnic respiratory failure. Repeat chest x-ray shows evidence of pulmonary vascular congestion 3. A. fib with RVR 4. Chronic diastolic heart failure 5. Previous history of PE maintained on long-term anticoagulation 6. Morbid obesity 7. UTI with urine culture growing gram-negative bacilli Plan: Continue with Lasix drip Increase Zaroxolyn Repeat labs in a.m. Continue to avoid nephrotoxic agents Continue with midodrine
[2021-08-19 11:36] LABS: Glucose,Whole Blood 113 mg/dL (75-99)
--- NOTE | 2021-08-19 12:03 | P.PN ---
Subjective Progress Note Date: 08/19/21 Principal diagnosis: Shortness of breath On 08/17/2021 patient seen in follow-up on selective care unit. She is awake and alert, in no acute distress, she has been wearing BiPAP intermittently, she is currently on nasal cannula, patient remains on IV Lasix at 50 mg/h. However her urine output has been very minimal, and patient still has significant generalized edema and significant lower extremity edema. Renal function continues to worsen and on today's labs BUN is 56, and creatinine is 2.05. Sodium is 134, potassium is 4.3. Urinalysis showed evidence of acute urinary tract infection. White blood cell count has increased and is up to 16.2, hemoglobin is 10.7. INR is 4.5. No nausea or vomiting, although her appetite is poor. No Complains of chest discomfort. No coughing or wheezing, no fever or chills. On 08/18/2021 patient seen in follow-up on selective care unit, she is awake, answering questions appropriately, she did wear BiPAP support pressures of 12 and 4, and FiO2 40% overnight, she is currently on 4 L of oxygen pulse ox is 93%, she is afebrile, blood pressure is been stable. She remains on Lasix infusion at 15 mg per hour, she is only in -48 cc negative fluid balance over the last 24 hours, she has produced 575 ML of urine, and remains significantly fluid overloaded with anasarca, significant peripheral edema. Chest x-ray today showed diffuse pleural parenchymal changes that are stable in appearance related to CHF. Today's labs have been reviewed, INR is 5.9, sodium is 133, potassium is 4.4, chloride is 88, CO2 is stable at 36, renal function continues to slightly worsen, and BUN is 57, creatinine is 2.22. Urinalysis showed evidence of urinary tract infection, urine culture is currently pending. On 08/19/2021 patient is seen in follow-up on selective care unit. He remains on Lasix drip at 15 mg per hour, however her urine output remains poor, and she is actually in 925 ML positive net fluid balance over the last 24 hours. We requested nursing staff to obtain a current weight, the patient is positive at 19.6 kilos since admission. She is significantly fluid overloaded with anasarca, and severe pitting edema of bilateral lower extremities, abdomen, thighs. Today's labs have been reviewed, showing white blood cell count of 15.6, hemoglobin of 11.2, she received vitamin K for INR of 5.9 yesterday, INR is currently down to 1.4, Coumadin remains on hold, pharmacy is dosing, sodium is 132, potassium is 4.3, chloride is 87, CO2 is 38, BUN is 60, creatinine is 2.29, pro calcitonin level is 0.30, urinalysis showed evidence of urinary tract infection, we will empirically place the patient on Rocephin, and urine culture has been sent., Currently showing gram-negative bacilli, final culture is pending Objective - Vital Signs Vital signs: Vital Signs Temp 97.8 F 08/19/21 08:00 Pulse 105 H 08/19/21 08:00 Resp 18 08/19/21 08:00 BP 127/57 08/19/21 08:00 Pulse Ox 90 L 08/19/21 08:00 FiO2 40 08/19/21 04:00 Intake & Output 08/18/21 08/19/21 08/19/21 18:59 06:59 18:59 Intake Total 990 410 Output Total 475 Balance 990 -65 Weight 194.138 kg 213.7 kg Intake: IV 90 Furosemide 100 mg In 90 Sodium Chloride 0.9% 90 ml @ 15 MG/HR 15 mls/hr IV .Q6H40M [facility] Rx#: [id number] Intake, IV Titration 150 200 Amount Furosemide 100 mg In 100 200 Sodium Chloride 0.9% 90 ml @ 15 MG/HR 15 mls/hr IV .Q6H40M [facility] Rx#: [id number] Phytonadione 5 mg In 50 Sodium Chloride 0.9% 50 ml @ 100 mls/hr IVPB ONCE [facility] Rx#:[id number] Oral 840 120 Output: Urine 475 Other: Voiding Method Indwelling Catheter Indwelling Catheter Indwelling Catheter - Exam GENERAL EXAM: Alert, very pleasant, 65-year-old morbidly obese white female, on nasal cannula and BiPAP support intermittently, comfortable in no apparent distress. HEAD: Normocephalic/atraumatic. EYES: Normal reaction of pupils, equal size. Conjunctiva pink, sclera white. NOSE: Clear with pink turbinates. THROAT: No erythema or exudates. NECK: No masses, no JVD, no thyroid enlargement, no adenopathy. CHEST: No chest wall deformity. Symmetrical expansion. LUNGS: Equal air entry with no crackles, wheeze, rhonchi or dullness. CVS: Regular rate and rhythm, normal S1 and S2, no gallops, no murmurs, no rubs ABDOMEN: Soft, obese, nontender No hepatosplenomegaly, normal bowel sounds, no guarding or rigidity. EXTREMITIES: No clubbing, 3+ lower extremity edema no cyanosis, 2+ pulses and upper and lower extremities. MUSCULOSKELETAL: Muscle strength and tone normal. SPINE: No scoliosis or deformity SKIN: No rashes CENTRAL NERVOUS SYSTEM: Alert and oriented -3. No focal deficits, tone is normal in all 4 extremities. PSYCHIATRIC: Alert and oriented -3. Appropriate affect. Intact judgment and insight. - Labs CBC & Chem 7: 08/19/21 09:22 08/19/21 09:22 Labs: Abnormal Lab Results - Last 24 Hours (Table) 08/18/21 08/18/21 08/18/21 Range/Units 09:12 12:00 20:11 WBC (3.8-10.6) k/uL Hgb (11.4-16.0) gm/dL MCHC (31.0-37.0) g/dL RDW (11.5-15.5) % Neutrophils # (1.3-7.7) k/uL PT (9.0-12.0) sec INR (<1.2) Sodium (137-145) mmol/L Chloride (98-107) mmol/L Carbon Dioxide (22-30) mmol/L BUN (7-17) mg/dL Creatinine (0.52-1.04) mg/dL Glucose (74-99) mg/dL POC Glucose (mg/dL) 100 H 147 H (75-99) mg/dL Procalcitonin 0.30 H (0.02-0.09) ng/mL Urine Appearance (Clear) Urine Blood (Negative) Ur Leukocyte Esterase (Negative) Urine RBC (0-5) /hpf Urine WBC (0-5) /hpf Urine Bacteria (None) /hpf Urine Mucus (None) /hpf 08/18/21 08/19/21 08/19/21 Range/Units Unknown : 09:22 WBC 15.6 H (3.8-10.6) k/uL Hgb 11.2 L (11.4-16.0) gm/dL MCHC 28.6 L (31.0-37.0) g/dL RDW 16.5 H (11.5-15.5) % Neutrophils # 13.3 H (1.3-7.7) k/uL PT 14.9 H (9.0-12.0) sec INR 1.4 H (<1.2) Sodium (137-145) mmol/L Chloride (98-107) mmol/L Carbon Dioxide (22-30) mmol/L BUN (7-17) mg/dL Creatinine (0.52-1.04) mg/dL Glucose (74-99) mg/dL POC Glucose (mg/dL) (75-99) mg/dL Procalcitonin (0.02-0.09) ng/mL Urine Appearance Cloudy H (Clear) Urine Blood Large H (Negative) Ur Leukocyte Esterase Large H (Negative) Urine RBC 153 H (0-5) /hpf Urine WBC 24 H (0-5) /hpf Urine Bacteria Many H (None) /hpf Urine Mucus Rare H (None) /hpf 08/19/21 08/19/21 Range/Units 09:22 11:32 WBC (3.8-10.6) k/uL Hgb (11.4-16.0) gm/dL MCHC (31.0-37.0) g/dL RDW (11.5-15.5) % Neutrophils # (1.3-7.7) k/uL PT (9.0-12.0) sec INR (<1.2) Sodium 132 L (137-145) mmol/L Chloride 87 L (98-107) mmol/L Carbon Dioxide 38 H (22-30) mmol/L BUN 60 H (7-17) mg/dL Creatinine 2.29 H (0.52-1.04) mg/dL Glucose 113 H (74-99) mg/dL POC Glucose (mg/dL) 113 H (75-99) mg/dL Procalcitonin (0.02-0.09) ng/mL Urine Appearance (Clear) Urine Blood (Negative) Ur Leukocyte Esterase (Negative) Urine RBC (0-5) /hpf Urine WBC (0-5) /hpf Urine Bacteria (None) /hpf Urine Mucus (None) /hpf Microbiology - Last 24 Hours (Table) 08/18/21 09:12 Blood Culture - Preliminary Blood No Growth after 24 hours 08/17/21 15:18 Urine Culture - Preliminary Urine,Catheterized Gram Neg Bacilli 08/18/21 Unknown Urine Culture - Preliminary Urine,Voided Assessment and Plan Plan: Assessment: #1. Acute shortness of breath, acute on chronic with evidence of worsening CHF with diastolic dysfunction. Chest x-ray findings are consistent with CHF, cardiomegaly and pulmonary edema and increased lower extremity edema related to decompensated CHF. #2. Acute on chronic hypoxic/hypercapnic respiratory failure on BiPAP alternating with nasal cannula #3. Acute kidney injury patient is oliguric, nephrology is on the case. Patient is having minimal urine output and has poor response to diuretics #4. CHF with probable biventricular diastolic heart failure with acute decompensation is significant volume overload #5. New onset atrial fibrillation, currently controlled with oral amiodarone and metoprolol #6. Chronic hypoxic respiratory failure #7. Morbid obesity with BMI of 73.5 kg/m #8. Chronic hypoxic and hypercapnic respiratory failure with a component of obesity hypoventilation syndrome #9. Hypertension #10. Previous history of pulmonary embolism on Coumadin #11. Hypothyroidism #12. Chronic lower extremity edema #13. Diabetes mellitus #14. Resident of a extended care facility Plan: Patient has not had significant response to Lasix infusion We will add Zaroxolyn 2.5 mg daily and await further nephrology recommendations Still remains significantly fluid overloaded Continue BiPAP support at bedtime and as needed Daily weights, and accurate intake and output Daily labs including CBC and CMP Continue antibiotics, awaiting final urine cultures Overall prognosis is quite guarded I have personally seen and examined the patient, performed the documentation and the assessment and plan as written. Number of minutes spent on the visit: [10] Time with Patient: Less than 30
[2021-08-19] MEDS: LACTOBACILLUS ACIDOPH & BULGAR 1 EACH PACKET PO SCH (12:52)
[2021-08-19] MEDS: CHOLECALCIFEROL 25 MCG (1000 IU) TABLET PO SCH (12:52)
[2021-08-19] MEDS: METOPROLOL TARTRATE 50 MG TAB PO SCH ×3 (12:53→21:33)
--- NOTE | 2021-08-19 13:05 | P.PN ---
Subjective This is a 65-year-old female with a past medical history significant for COPD, hypertension, hypothyroidism, and PE/DVT on Coumadin. Patient was last seen in the office in [address] Carlos. We have been asked to see the patient in consultation for A. fib with RVR and congestive heart failure. The patient apparently was brought to the hospital from [facility] secondary to hypoxia. The patient states when they checked her oxygen saturations on her finger she was found to be 75%. The patient was found to be in A. fib with RVR. The patient denies any history of atrial fibrillation. The patient was started on a Cardizem drip at 10 mg an hour. She remains in atrial fibrillation this morning with a heart rate in the 120s. Echocardiogram completed revealing ejection fraction 40-45%, severe right ventricular dilatation, mild tricuspid regurgitation, and moderate pericardial effusion. Patient was found to have an elevated d-dimer 1.58. CTA chest was ordered. Per nursing, this was cancelled as patient was unable to fit in CT machine due to body habitus. 08/19/2021 Patient seen and examined at bedside, no acute distress. She is awake, lethargic, no significant change from yesterday. She continues to reequire BIPAP overnight. 4L nasal cannula this morning. No chest pain. Denies shortness of breath. She remains in atrial fibrillation with controlled ventricular rates. She is on amiodarone 200mg BID and metoprolol tartrate 25mg TID. IV Lasix drip 15mg/hr and metolazone 5mg BID. Patient with decreased urine output. Over the last 24 hours, she has produced 575 ML of urine Nephrology following. INR 5.9 yesterday, 1.4 today. PHYSICAL EXAM: VITAL SIGNS: Reviewed. GENERAL: In no acute distress. HEENT: Neck supple. No JVD LUNGS: Respirations even and unlabored. Lungs diminished to auscultation bilaterally. HEART: Irregular rate and rhythm. S1 and S2 heard. ABDOMEN: Soft. Nondistended. Nontender. EXTREMITIES: Normal range of motion. No clubbing or cyanosis. Peripheral pulses intact. Bilateral lower extremity edema present NEUROLOGIC: Somnolent on BIPAP ASSESSMENT: New onset Paroxysmal atrial fibrillation with RVR Acute hypoxic respiratory failure Acute on chronic heart failure with preserved ejection fraction COPD Hypertension Hypothyroidism History of PE/DVT on Coumadin Diabetes Moderate pericardial effusion Elevated d-dimer, unable to have CTA due to body habitus Acute kidney injury CO2 narcosis Morbid obesity PLAN: Discontinue amiodarone secondary to supratherapeutic INR yesterday. HRs currently predominantly controlled in the 80s-90s Increase metoprolol to 50mg TID Coumadin as been resumed Monitor neurolgic status with CO2 narcosis. Monitor I/Os daily weights, renal function and electrolytes Monitor INR and CBC Prognosis is poor Further recommendations pending patient's course Nurse practitioner note has been reviewed by physician. Signing provider agrees with the documented findings, assessment, and plan of care. Objective - Vital Signs Vital signs: Vital Signs Temp 97.8 F 08/19/21 08:00 Pulse 105 H 08/19/21 08:00 Resp 18 08/19/21 08:00 BP 127/57 08/19/21 08:00 Pulse Ox 90 L 08/19/21 08:00 FiO2 40 08/19/21 04:00 Intake & Output 08/18/21 08/19/21 08/19/21 18:59 06:59 18:59 Intake Total 990 410 Output Total 475 Balance 990 -65 Weight 194.138 kg 213.7 kg Intake: IV 90 Furosemide 100 mg In 90 Sodium Chloride 0.9% 90 ml @ 15 MG/HR 15 mls/hr IV .Q6H40M [facility] Rx#: [id number] Intake, IV Titration 150 200 Amount Furosemide 100 mg In 100 200 Sodium Chloride 0.9% 90 ml @ 15 MG/HR 15 mls/hr IV .Q6H40M [facility] Rx#: [id number] Phytonadione 5 mg In 50 Sodium Chloride 0.9% 50 ml @ 100 mls/hr IVPB ONCE STA Rx#:[id number] Oral 840 120 Output: Urine 475 Other: Voiding Method Indwelling Catheter Indwelling Catheter Indwelling Catheter - Labs CBC & Chem 7: 08/19/21 09:22 08/19/21 09:22 Labs: Abnormal Lab Results - Last 24 Hours (Table) 08/18/21 08/18/21 08/18/21 Range/Units 09:12 20:11 Unknown WBC (3.8-10.6) k/uL Hgb (11.4-16.0) gm/dL MCHC (31.0-37.0) g/dL RDW (11.5-15.5) % Neutrophils # (1.3-7.7) k/uL PT (9.0-12.0) sec INR (<1.2) Sodium (137-145) mmol/L Chloride (98-107) mmol/L Carbon Dioxide (22-30) mmol/L BUN (7-17) mg/dL Creatinine (0.52-1.04) mg/dL Glucose (74-99) mg/dL POC Glucose (mg/dL) 147 H (75-99) mg/dL Procalcitonin 0.30 H (0.02-0.09) ng/mL Urine Appearance Cloudy H (Clear) Urine Blood Large H (Negative) Ur Leukocyte Esterase Large H (Negative) Urine RBC 153 H (0-5) /hpf Urine WBC 24 H (0-5) /hpf Urine Bacteria Many H (None) /hpf Urine Mucus Rare H (None) /hpf 08/19/21 08/19/21 08/19/21 Range/Units 09:22 09:22 09:22 WBC 15.6 H (3.8-10.6) k/uL Hgb 11.2 L (11.4-16.0) gm/dL MCHC 28.6 L (31.0-37.0) g/dL RDW 16.5 H (11.5-15.5) % Neutrophils # 13.3 H (1.3-7.7) k/uL PT 14.9 H (9.0-12.0) sec INR 1.4 H (<1.2) Sodium 132 L (137-145) mmol/L Chloride 87 L (98-107) mmol/L Carbon Dioxide 38 H (22-30) mmol/L BUN 60 H (7-17) mg/dL Creatinine 2.29 H (0.52-1.04) mg/dL Glucose 113 H (74-99) mg/dL POC Glucose (mg/dL) (75-99) mg/dL Procalcitonin (0.02-0.09) ng/mL Urine Appearance (Clear) Urine Blood (Negative) Ur Leukocyte Esterase (Negative) Urine RBC (0-5) /hpf Urine WBC (0-5) /hpf Urine Bacteria (None) /hpf Urine Mucus (None) /hpf 08/19/21 Range/Units 11:32 WBC (3.8-10.6) k/uL Hgb (11.4-16.0) gm/dL MCHC (31.0-37.0) g/dL RDW (11.5-15.5) % Neutrophils # (1.3-7.7) k/uL PT (9.0-12.0) sec INR (<1.2) Sodium (137-145) mmol/L Chloride (98-107) mmol/L Carbon Dioxide (22-30) mmol/L BUN (7-17) mg/dL Creatinine (0.52-1.04) mg/dL Glucose (74-99) mg/dL POC Glucose (mg/dL) 113 H (75-99) mg/dL Procalcitonin (0.02-0.09) ng/mL Urine Appearance (Clear) Urine Blood (Negative) Ur Leukocyte Esterase (Negative) Urine RBC (0-5) /hpf Urine WBC (0-5) /hpf Urine Bacteria (None) /hpf Urine Mucus (None) /hpf Microbiology - Last 24 Hours (Table) 08/18/21 09:12 Blood Culture - Preliminary Blood No Growth after 24 hours 08/17/21 15:18 Urine Culture - Preliminary Urine,Catheterized Gram Neg Bacilli 08/18/21 Unknown Urine Culture - Preliminary Urine,Voided
[2021-08-19 16:29] LABS: Glucose,Whole Blood 81 mg/dL (75-99)
[2021-08-19] MEDS: LINAGLIPTIN 5 MG TABLET PO SCH (17:32)
[2021-08-19] MEDS: CALCIUM CARBONATE 500 MG CHEWABLE PO SCH (17:36)
[2021-08-19] MEDS: MULTIVITAMINS, THERA 1 EACH TAB PO SCH (17:36)
[2021-08-19] MEDS: CYANOCOBALAMIN 500 MCG TAB PO SCH (17:36)
[2021-08-19] MEDS: CALCIUM CARB-VIT D 500 MG-5 MCG TAB PO SCH (17:36)
[2021-08-19] MEDS: ASCORBIC ACID 500 MG TAB PO SCH (17:36)
[2021-08-19] MEDS ORDERED: WARFARIN 2.5 MG TAB PO ONE (18:00)
[2021-08-19] MEDS: AMIODARONE 200 MG TAB PO SCH (20:04)
[2021-08-19 20:38] LABS: Glucose,Whole Blood 121 mg/dL (75-99)
[2021-08-19] MEDS: PANTOPRAZOLE 40 MG TABLET PO SCH (21:33)
[2021-08-19] MEDS: metOLazone 5 MG TAB PO SCH (21:33)
[2021-08-19] MEDS: ATORVASTATIN 20 MG TAB PO SCH (21:33)
[2021-08-19] MEDS ORDERED: BENZOCAINE/MENTHOL LOZENG 1 EACH LOZENGE MUCOUS MEM PRN (23:14)
[2021-08-20] MEDS: FUROSEMIDE 100 MG in SODIUM CHLORIDE 0.9% 90 ML IV SCH ×3 (03:58→17:34)
[2021-08-20 06:32] LABS: Glucose,Whole Blood 105 mg/dL (75-99)
[2021-08-20] MEDS: INSULIN ASPART (NovoLOG) 100 UNIT/ML VIAL SQ SCH ×4 (06:33→22:27)
[2021-08-20] MEDS: IPRATROPIUM-ALBUTEROL 3 ML NEB INHALATION SCH ×3 (07:05→20:04)
--- NOTE | 2021-08-20 07:26 | P.PN ---
Subjective Progress Note Date: 08/19/21 Principal diagnosis: Left lateral thigh wound/rash, groin Cutaneous candidiasis Patient is a 65-year-old female with multiple comorbidities morbid obesity presented to the hospital with increasing shortness of breath patient was also noticed to have a extensive bilateral groin area Cutaneous candidiasis and also an erythematous patch to the left lateral thigh area. On today's evaluation that is 08/19/2021, the patient continues to be afebrile, the patient is breathing comfortably however he is requiring off and on BiPAP, the patient denies having any chest pain, did have occasional cough, no abdominal pain no diarrhea Objective - Vital Signs Vital signs: Vital Signs Temp 97.9 F 08/19/21 12:00 Pulse 100 08/19/21 12:00 Resp 17 08/19/21 12:00 BP 113/58 08/19/21 12:00 Pulse Ox 90 L 08/19/21 12:00 FiO2 40 08/19/21 04:00 Intake & Output 08/18/21 08/19/21 08/19/21 18:59 06:59 18:59 Intake Total 990 410 100 Output Total 475 Balance 990 -65 100 Weight 194.138 kg 213.7 kg Intake: IV 90 Furosemide 100 mg In 90 Sodium Chloride 0.9% 90 ml @ 15 MG/HR 15 mls/hr IV .Q6H40M [facility] Rx#: [id number] Intake, IV Titration 150 200 100 Amount Furosemide 100 mg In 100 200 100 Sodium Chloride 0.9% 90 ml @ 15 MG/HR 15 mls/hr IV .Q6H40M [facility] Rx#: [id number] Phytonadione 5 mg In 50 Sodium Chloride 0.9% 50 ml @ 100 mls/hr IVPB ONCE [facility] Rx#:[id number] Oral 840 120 Output: Urine 475 Other: Voiding Method Indwelling Catheter Indwelling Catheter Indwelling Catheter - Exam GENERAL DESCRIPTION: An elderlyfemale lying in bed in no distress RESPIRATORY SYSTEM: Unlabored breathing , decreased breath sounds at bases HEART: S1 S2 regular rate and rhythm , ABDOMEN: Soft , no tenderness EXTREMITIES: Diffuse swelling bilateral lower extremity with an erythematous patch to left lateral thigh - Labs CBC & Chem 7: 08/19/21 09:22 08/19/21 09:22 Labs: Abnormal Lab Results - Last 24 Hours (Table) 08/18/21 08/18/21 08/18/21 Range/Units 09:12 20:11 Unknown WBC (3.8-10.6) k/uL Hgb (11.4-16.0) gm/dL MCHC (31.0-37.0) g/dL RDW (11.5-15.5) % Neutrophils # (1.3-7.7) k/uL PT (9.0-12.0) sec INR (<1.2) Sodium (137-145) mmol/L Chloride (98-107) mmol/L Carbon Dioxide (22-30) mmol/L BUN (7-17) mg/dL Creatinine (0.52-1.04) mg/dL Glucose (74-99) mg/dL POC Glucose (mg/dL) 147 H (75-99) mg/dL Procalcitonin 0.30 H (0.02-0.09) ng/mL Urine Appearance Cloudy H (Clear) Urine Blood Large H (Negative) Ur Leukocyte Esterase Large H (Negative) Urine RBC 153 H (0-5) /hpf Urine WBC 24 H (0-5) /hpf Urine Bacteria Many H (None) /hpf Urine Mucus Rare H (None) /hpf 08/19/21 08/19/21 08/19/21 Range/Units 09:22 09:22 09:22 WBC 15.6 H (3.8-10.6) k/uL Hgb 11.2 L (11.4-16.0) gm/dL MCHC 28.6 L (31.0-37.0) g/dL RDW 16.5 H (11.5-15.5) % Neutrophils # 13.3 H (1.3-7.7) k/uL PT 14.9 H (9.0-12.0) sec INR 1.4 H (<1.2) Sodium 132 L (137-145) mmol/L Chloride 87 L (98-107) mmol/L Carbon Dioxide 38 H (22-30) mmol/L BUN 60 H (7-17) mg/dL Creatinine 2.29 H (0.52-1.04) mg/dL Glucose 113 H (74-99) mg/dL POC Glucose (mg/dL) (75-99) mg/dL Procalcitonin (0.02-0.09) ng/mL Urine Appearance (Clear) Urine Blood (Negative) Ur Leukocyte Esterase (Negative) Urine RBC (0-5) /hpf Urine WBC (0-5) /hpf Urine Bacteria (None) /hpf Urine Mucus (None) /hpf 08/19/21 Range/Units 11:32 WBC (3.8-10.6) k/uL Hgb (11.4-16.0) gm/dL MCHC (31.0-37.0) g/dL RDW (11.5-15.5) % Neutrophils # (1.3-7.7) k/uL PT (9.0-12.0) sec INR (<1.2) Sodium (137-145) mmol/L Chloride (98-107) mmol/L Carbon Dioxide (22-30) mmol/L BUN (7-17) mg/dL Creatinine (0.52-1.04) mg/dL Glucose (74-99) mg/dL POC Glucose (mg/dL) 113 H (75-99) mg/dL Procalcitonin (0.02-0.09) ng/mL Urine Appearance (Clear) Urine Blood (Negative) Ur Leukocyte Esterase (Negative) Urine RBC (0-5) /hpf Urine WBC (0-5) /hpf Urine Bacteria (None) /hpf Urine Mucus (None) /hpf Microbiology - Last 24 Hours (Table) 08/18/21 09:12 Blood Culture - Preliminary Blood No Growth after 24 hours 08/17/21 15:18 Urine Culture - Preliminary Urine,Catheterized Gram Neg Bacilli 08/18/21 Unknown Urine Culture - Preliminary Urine,Voided Assessment and Plan (1) Non-healing skin lesion Current Visit: No Status: Acute Code(s): L98.9 - DISORDER OF THE SKIN AND SUBCUTANEOUS TISSUE, UNSPECIFIED SNOMED Code(s): 62783940 Plan: 1patient with left lateral thigh wound with no evidence of any cellulitis and oozing could be related to the fluid overload state, patient to continue with the Mycolog cream applied twice a day. 2 Patient with bilateral groin area cutaneous candidiasis but no evidence of secondary cellulitis to continue continue with nystatin powder twice a day. 3-patient did have leukocytosis chest x-rays mostly bilateral diffuse infiltrate, CRP and procalcitonin mildly elevated, urine is showing a gram-negative bacillary with a culture pending, patient to continue with the Rocephin while waiting for the cultures to finalize Time with Patient: Less than 30
--- NOTE | 2021-08-20 09:13 | P.PN ---
Subjective Progress Note Date: 08/19/21 This 65-year-old female was recently admitted with CHF and atrial fibrillation cardio following closely. Patient was maintained on IV Cardizem which is currently being transitioned IV amiodarone along with IV heparin. 2-D echo was ordered and pending at this time. Patient continues on 2 L of oxygen via nasal cannula at 90% oxygen pulse ox and continues to report shortness of breath and generalized weakness. Patient is morbidly obese with a BMI of 73.5 and resides in [place] Patient's blood pressure is elevated and will initiate Norvasc 10 mg daily and monitor closely. Infectious disease also consulted for a wound on the left hip along with pulmonary for COPD acute exacerbation. Patient denies any chest pain and patient is afebrile. 08/13/2021 Patient is seen today in follow up and continues to report shortness of breath. Cardiology and pulmonary and ID following. Patient is continued on bronchodilators and also continues on IV lasix. IV heparin continued and being started on coumadin. Transitioned to oral amiodarone and cardiology adjusting medications. Patient denies chest pain and is afebrile. 08/14/2021 Patient is seen this am and continues with cardiology and pulmonary following. Neprhology consulted for elevated kidney functions and patient is continued on IV lasix. US renal/bladder and pending. Patient continues with 3L via NC and breathing treatments along with IV heparin and coumadin with pharmacy to dose. Cardiology also following. Patient is afebrile and denies any chest pain. Patient reports not eating or drinking. 08/15/2021 Patient is seen today and continues with worsening renal functions and also some hypotension. Patient was maintained on IV heparin with coumadin and INR is 2.6 today and will dc heparin. Patient with hypotension and adding some midodrine and per nephro will give a 250ml bolus. Off IV lasix for now given worsening renal functions. Poor oral intake and decreased urine output from yesterday. Continue lacy catheter and encouraged oral intake. Patient is more lethargic today as well. 08/16/2021 Patient is seen in follow-up currently maintained on BiPAP and continues with shortness of breath. Multiple medical consultations following including pulmonary, nephrology, cardiology and patient continues with volume overload and is being started on IV Lasix. Patient with worsening kidney functions and decreased urine output although bladder and abdomen ultrasound showed no evidence of hydronephrosis. Patient also transition to Coumadin and INR is 4.0 and recommend to hold Coumadin and repeat labs. Sodium is 133 with a potassium of 4.3, BUN is 50, creatinine is 2.03. Patient not really tolerating any oral diet and difficult given the BiPAP is continuous at this time. Patient is anxious with family friend at the bedside. Patient is afebrile and denies any chest pain. Patient to continue with local wound care per ID with frequent position changes as well. 08/17/2021 Patient is seen this morning and continues on IV lasix drip with cardiology, pulmonary, and nephrology following. Patient is on bipap and continues with poor oral intake and minimal urine output. Indwelling catheter for strict monitoring of intake and output. Patient did have some brief periods of attempting nasal cannula and was able to take medications and have 2cups of applesauce per staff pharmacist. WBC is elevated and CXR ordered. Patient is afebrile and denies chest pain. 08/18/2021 Patient is seen in follow-up this morning continues on IV Lasix drip with nephrology and cardiology following closely. Patient also continues on IV ceftriaxone and also has been transitioned and titrated down on oral amiodarone. Patient morning labs pending at this time and patient is normally on Coumadin although currently held as patient was having elevated INR. Will follow-up with morning labs. Patient is now off BiPAP this morning and maintained on 4 L was 93-94% oxygen saturation. Urine output is decreased but has slowly improved. Oral intake is poor. Patient is afebrile and denies any chest pain or worsening shortness of breath. 08/19/2021 Patient is seen in follow-up this morning and mentation is slowly improving although patient continues to be lethargic and is continued on BiPAP at night and as needed and also currently maintained on 4 L via nasal cannula. Patient continues on IV Lasix drip with some improvement in urine output and will continue with indwelling Lacy catheter. Urine with urine culture was done and preliminary showing gram-negative bacilli with ID following and IV ceftriaxone being initiated. Patient's INR improved after vitamin K administration and will continue with Coumadin with pharmacy to dose. Patient is afebrile and denies any worsening shortness of breath or chest pain. Patient is asking if she can return home. Patient is a resident at [facility]. Review of systems: Constitutional: reports of fatigue and weakness, no reports of fever, or chills Cardiovascular: No reports of chest pain or palpitations Respiratory: reports of shortness of breath with some improvement GI: No reports of nausea, no reports of of vomiting, poor appetite : No reports of dysuria or retention, decreased output Neurovascular: reports of generalized weakness All medications have been reviewed Active Medications Acetaminophen (Acetaminophen Tab 325 Mg Tab) 650 mg PO Q6HR PRN PRN Reason: Mild Pain or Fever > 100.5 Last Admin: 08/18/21 08:46 Dose: 650 mg Albuterol/Ipratropium (Ipratropium-Albuterol 3 Ml Neb) 3 ml INHALATION RT-TID [facility] Last Admin: 08/18/21 07:21 Dose: 3 ml Amiodarone HCl (Amiodarone 200 Mg Tab) 200 mg PO BID [facility] Last Admin: 08/18/21 08:47 Dose: 200 mg Ascorbic Acid (Ascorbic Acid 500 Mg Tab) 500 mg PO DAILY@1700 [facility] Last Admin: 08/17/21 17:07 Dose: 500 mg Atorvastatin Calcium (Atorvastatin 20 Mg Tab) 20 mg PO HS [facility] Last Admin: 08/17/21 21:14 Dose: 20 mg Bisacodyl (Bisacodyl 10 Mg Supp) 10 mg RECTAL DAILY PRN PRN Reason: Constipation Calcium Carbonate (Calcium Carb-Vit D 500 Mg-5 Mcg Tab) 1 each PO DAILY@1700 [facility] Last Admin: 08/17/21 17:07 Dose: 1 each Calcium Carbonate/Glycine (Calcium Carbonate 500 Mg Chewable) 500 mg PO DAILY@1700 [facility] Last Admin: 08/17/21 17:17 Dose: Not Given Cholecalciferol (Cholecalciferol 25 Mcg (1000 Iu) Tablet) 100 mcg PO DAILY@1200 [facility] Last Admin: 08/18/21 08:46 Dose: 100 mcg Cyanocobalamin (Cyanocobalamin 500 Mcg Tab) 500 mcg PO DAILY@1700 [facility] Last Admin: 08/17/21 17:08 Dose: 500 mcg Docusate Sodium (Docusate 100 Mg Cap) 100 mg PO DAILY@1000 [facility] Last Admin: 08/18/21 08:46 Dose: 100 mg Escitalopram Oxalate (Escitalopram 20 Mg Tab) 20 mg PO DAILY@1000 [facility] Last Admin: 08/18/21 08:46 Dose: 20 mg Ferrous Sulfate (Ferrous Sulfate 325 Mg Tab) 325 mg PO BID@1000,1700 [facility] Last Admin: 08/18/21 08:46 Dose: 325 mg Folic Acid (Folic Acid 1 Mg Tab) 0.5 mg PO DAILY@1000 [facility] Last Admin: 08/18/21 08:47 Dose: 0.5 mg Glipizide (Glipizide 2.5 Mg Tab) 2.5 mg PO DAILY@1000 [facility] Last Admin: 08/17/21 09:09 Dose: 2.5 mg Furosemide 100 mg/ Sodium (Chloride) 100 mls @ 15 mls/hr IV .Q6H40M [facility] Last Admin: 08/18/21 05:22 Dose: 15 mg/hr, 15 mls/hr Ceftriaxone Sodium 1 gm/ (Sodium Chloride) 50 mls @ 100 mls/hr IVPB Q24HR [facility]; Protocol Insulin Aspart (Insulin Aspart (Novolog) 100 Unit/Ml Vial) 0 unit SQ ACHS [facility]; Protocol Last Admin: 08/18/21 06:16 Dose: Not Given Lactobacillus Acidoph/Bulgaricus (Lactobacillus Acidoph & Bulgar 1 Each Packet) 1 each PO DAILY@1200 [facility] Last Admin: 08/18/21 08:46 Dose: 1 each Levothyroxine Sodium (Levothyroxine 88 Mcg Tab) 88 mcg PO DAILY@1000 [facility] Last Admin: 08/18/21 08:47 Dose: 88 mcg Lidocaine (Lidocaine 5% Ointment 50 Gm Jar) 1 applic TOPICAL HS PRN PRN Reason: WOUND PAIN Linagliptin (Linagliptin 5 Mg Tablet) 5 mg PO DAILY@1700 [facility] Last Admin: 08/17/21 17:15 Dose: Not Given Magnesium Hydroxide (Magnesium Hydroxide 2,400 Mg/10 Ml Cup) 2,400 mg PO Q48H PRN PRN Reason: Constipation Methyl Salicylate (Methyl Salicylate-Menthol Oint (3 Oz Tube)) 1 applic TOPICAL DAILY PRN PRN Reason: pain Metoprolol Tartrate (Metoprolol Tartrate 25 Mg Tab) 25 mg PO TID [facility] Last Admin: 08/18/21 08:46 Dose: 25 mg Midodrine (Midodrine 5 Mg Tab) 5 mg PO AC-TID [facility] Last Admin: 08/18/21 06:59 Dose: Not Given Miscellaneous Information (Warfarin Per Pharmacy) 1 each MISCELLANE DIRECTED PRN; Protocol PRN Reason: Per Protocol Multivitamins (Multivitamins, Thera 1 Each Tab) 1 each PO DAILY@1700 [facility] Last Admin: 08/17/21 17:07 Dose: 1 each Naloxone HCl (Naloxone 0.4 Mg/Ml 1 Ml Vial) 0.2 mg IV Q2M PRN PRN Reason: Opioid Reversal Nystatin (Nystatin 100,000 Unit/Gm Powd 15 Gm) 1 applic TOPICAL BID [facility]; Protocol Last Admin: 08/18/21 08:48 Dose: 1 applic Nystatin (Nystatin 100,000unit/Gm Cream 30 Gm Tube) 1 applic TOPICAL BID [facility] Last Admin: 08/18/21 08:48 Dose: 1 applic Pantoprazole Sodium (Pantoprazole 40 Mg Tablet) 40 mg PO HS@2200 [facility] Last Admin: 08/17/21 21:14 Dose: 40 mg Simethicone (Simethicone 80 Mg Chewable) 80 mg PO PC-TID PRN PRN Reason: UPPERGASTRIC DISTRESS Triamcinolone Acetonide (Triamcinolone 0.1% Cream 80 Gm Tube) 1 applic TOPICAL BID [facility] Last Admin: 08/18/21 08:48 Dose: 1 applic PHYSICAL EXAMINATION: GENERAL: The patient is alert and oriented x3, morbidly obese Well developed, well nourished. less anxious today and on 4L via [place] HEENT: Pupils are round and equally reacting to light. EOMI. no scleral icterus. No conjunctival pallor. Normocephalic, atraumatic. No pharyngeal erythema. No thyromegaly. CARDIOVASCULAR: S1 and S2 muffled PULMONARY: diminished breath sounds bilaterally with some crackles and scattered rhonchi noted. ABDOMEN: soft. Nontender on exam. obese. non-distended, normoactive bowel sounds. No palpable organomegaly. MUSCULOSKELETAL: No joint swelling or deformity. EXTREMITIES: No cyanosis, clubbing, or pedal edema. Generalized edema noted throughout NEUROLOGICAL: Gross neurological examination did not reveal any focal deficits. Diffuse weakness SKIN: No rashes. Assessment: Atrial fibrillation with RVR new onset Congestive heart failure, acute exacerbation with preserved EF Acute urinary tract infection present on admission possibly secondary to urinary retention now growing gram-negative bacilli Morbid obesity with a BMI of 73.5 acute kidney injury Coagulopathy on coumadin COPD, acute exacerbation Diabetes mellitus, type 2 History of PE HIstory of esbl, MRSA Left hip wound GI prophylaxis DVT prophylaxis Full code Plan: Recommend to continue with current medications and management with cardiology following. Infectious disease following for left hip wound and will continue Local wound care and frequent position changes. Patient is afebrile although recent spike in blood count and had some decreased urine output and urinary retention and have obtained a urine with urine culture preliminary showing gram- negative bacilli. Ceftriaxone initiated and will await finalized culture and ID is following. Pulmonary also following and will continue on breathing inhalatio nal treatments. INR improved after vitamin K administration and will continue with Coumadin with pharmacy to dose. Transitioned to oral amiodarone and metoprolol currently rate controlled. Recommend to continue telemetry monitoring. Patient weaning FI02 as tolerated and currently on 4L via NC and recommend to continue with Bipap from 8pm to 8am and as needed. Nephrology following for worsening kidney functions and significant overload and patient is maintained on IV Lasix drip with close monitoring and recommend follow-up labs. Not currently requiring dialysis and will monitor output. Patient is a resident at [facility] and will be returning there once stabilized and discharged. Will disc uss with case management/social work about having Bipap in the outpatient setting. Due to multiple complex medical issues, prognosis is extremely guarded. The impression and plan of care has been dictated by Shefali Becerra, nurse practitioner as directed. Dr. Gee MD I have performed a history and examination and MDM of this patient, discussed the same with the dictator, and agree with the dictator's assessment and plan as written ,documented as a scribe. Based on total visit time, I have performed more than 50% of the visit. Any additional findings or plans will be noted. Objective - Vital Signs Vital signs: Vital Signs Temp 97.8 F 08/19/21 08:00 Pulse 105 H 08/19/21 08:00 Resp 18 08/19/21 08:00 BP 127/57 08/19/21 08:00 Pulse Ox 90 L 08/19/21 08:00 FiO2 40 08/19/21 04:00 Intake & Output 08/18/21 08/19/21 08/19/21 18:59 06:59 18:59 Intake Total 990 410 Output Total 475 Balance 990 -65 Weight 194.138 kg 213.7 kg Intake: IV 90 Furosemide 100 mg In 90 Sodium Chloride 0.9% 90 ml @ 15 MG/HR 15 mls/hr IV .Q6H40M [facility] Rx#: [id number] Intake, IV Titration 150 200 Amount Furosemide 100 mg In 100 200 Sodium Chloride 0.9% 90 ml @ 15 MG/HR 15 mls/hr IV .Q6H40M [facility] Rx#: [id number] Phytonadione 5 mg In 50 Sodium Chloride 0.9% 50 ml @ 100 mls/hr IVPB [facility] Rx#:[id number] Oral 840 120 Output: Urine 475 Other: Voiding Method Indwelling Catheter Indwelling Catheter - Labs CBC & Chem 7: 08/19/21 09:22 08/19/21 09:22 Labs: Abnormal Lab Results - Last 24 Hours (Table) 08/18/21 08/18/21 08/18/21 Range/Units 09:12 09:12 09:12 WBC (3.8-10.6) k/uL Hgb (11.4-16.0) gm/dL MCHC (31.0-37.0) g/dL RDW (11.5-15.5) % Neutrophils # (1.3-7.7) k/uL PT 59.4 H (9.0-12.0) sec INR 5.9 H* (<1.2) Sodium (137-145) mmol/L Chloride (98-107) mmol/L Carbon Dioxide (22-30) mmol/L BUN (7-17) mg/dL Creatinine (0.52-1.04) mg/dL Glucose (74-99) mg/dL POC Glucose (mg/dL) (75-99) mg/dL C-Reactive Protein 9.0 H (<1.0) mg/dL Procalcitonin 0.30 H (0.02-0.09) ng/mL Urine Appearance (Clear) Urine Blood (Negative) Ur Leukocyte Esterase (Negative) Urine RBC (0-5) /hpf Urine WBC (0-5) /hpf Urine Bacteria (None) /hpf Urine Mucus (None) /hpf 08/18/21 08/18/21 08/18/21 Range/Units 09:12 12:00 20:11 WBC (3.8-10.6) k/uL Hgb (11.4-16.0) gm/dL MCHC (31.0-37.0) g/dL RDW (11.5-15.5) % Neutrophils # (1.3-7.7) k/uL PT (9.0-12.0) sec INR (<1.2) Sodium 133 L (137-145) mmol/L Chloride 88 L (98-107) mmol/L Carbon Dioxide 36 H (22-30) mmol/L BUN 57 H (7-17) mg/dL Creatinine 2.22 H (0.52-1.04) mg/dL Glucose (74-99) mg/dL POC Glucose (mg/dL) 100 H 147 H (75-99) mg/dL C-Reactive Protein (<1.0) mg/dL Procalcitonin (0.02-0.09) ng/mL Urine Appearance (Clear) Urine Blood (Negative) Ur Leukocyte Esterase (Negative) Urine RBC (0-5) /hpf Urine WBC (0-5) /hpf Urine Bacteria (None) /hpf Urine Mucus (None) /hpf 08/18/21 08/19/21 08/19/21 Range/Units Unknown 09:22 09:22 WBC 15.6 H (3.8-10.6) k/uL Hgb 11.2 L (11.4-16.0) gm/dL MCHC 28.6 L (31.0-37.0) g/dL RDW 16.5 H (11.5-15.5) % Neutrophils # 13.3 H (1.3-7.7) k/uL PT 14.9 H (9.0-12.0) sec INR 1.4 H (<1.2) Sodium (137-145) mmol/L Chloride (98-107) mmol/L Carbon Dioxide (22-30) mmol/L BUN (7-17) mg/dL Creatinine (0.52-1.04) mg/dL Glucose (74-99) mg/dL POC Glucose (mg/dL) (75-99) mg/dL C-Reactive Protein (<1.0) mg/dL Procalcitonin (0.02-0.09) ng/mL Urine Appearance Cloudy H (Clear) Urine Blood Large H (Negative) Ur Leukocyte Esterase Large H (Negative) Urine RBC 153 H (0-5) /hpf Urine WBC 24 H (0-5) /hpf Urine Bacteria Many H (None) /hpf Urine Mucus Rare H (None) /hpf 08/19/21 Range/Units 09:22 WBC (3.8-10.6) k/uL Hgb (11.4-16.0) gm/dL MCHC (31.0-37.0) g/dL RDW (11.5-15.5) % Neutrophils # (1.3-7.7) k/uL PT (9.0-12.0) sec INR (<1.2) Sodium 132 L (137-145) mmol/L Chloride 87 L (98-107) mmol/L Carbon Dioxide 38 H (22-30) mmol/L BUN 60 H (7-17) mg/dL Creatinine 2.29 H (0.52-1.04) mg/dL Glucose 113 H (74-99) mg/dL POC Glucose (mg/dL) (75-99) mg/dL C-Reactive Protein (<1.0) mg/dL Procalcitonin (0.02-0.09) ng/mL Urine Appearance (Clear) Urine Blood (Negative) Ur Leukocyte Esterase (Negative) Urine RBC (0-5) /hpf Urine WBC (0-5) /hpf Urine Bacteria (None) /hpf Urine Mucus (None) /hpf Microbiology - Last 24 Hours (Table) 08/17/21 15:18 Urine Culture - Preliminary Urine,Catheterized Gram Neg Bacilli 08/18/21 Unknown Urine Culture - Preliminary Urine,Voided
[2021-08-20 09:37] LABS: Anisocytosis Slight; Basophils % (A) 0 %; Eosinophils % (A) 0 %; HCT 38.3 % (34.0-46.0); HGB 11.5 gm/dL (11.4-16.0); Hypochromasia Marked; Lymphocytes # (A) 1.6 k/uL (1.0-4.8); Lymphocytes % (A) 13 %; MCH 28.3 pg (25.0-35.0); MCHC 29.9 g/dL (31.0-37.0); MCV 94.8 fL (80.0-100.0); Mean Platelet Volume 7.3; Monocytes # (A) 0.5 k/uL (0-1.0); Monocytes % (A) 4 %; Neutrophils # (A) 10.4 k/uL (1.3-7.7); Neutrophils % (A) 82 %; Platelet Count 386 k/uL (150-450); RBC 4.04 m/uL (3.80-5.40); RDW 16.4 % (11.5-15.5); WBC 12.7 k/uL (3.8-10.6)
[2021-08-20 09:46] LABS: INR 1.3 (<1.2); Prothrombin Time 13.2 sec (9.0-12.0)
[2021-08-20 09:54] LABS: Albumin 3.4 g/dL (3.5-5.0); Calcium 8.9 mg/dL (8.4-10.2); Potassium 4.3 mmol/L (3.5-5.1); Total Bilirubin 0.8 mg/dL (0.2-1.3)
--- NOTE | 2021-08-20 10:30 | P.PN ---
Subjective Patient is seen for follow-up for acute kidney injury. Renal function has been worsening She has an indwelling Claros catheter with low urine output. Blood pressure had been low for which patient is started on midodrine Patient is currently maintained on Lasix drip for volume overload and acute hypoxic and hypercapnic respiratory failure. Mentation is slightly improved Respiratory status is also improved Urine output is improved from initial admission also still remains low INR has been slowly increasing. Decreased to 1.3 today. Patient is maintained on Coumadin but has not received a dose recently. Renal replacement therapy has been discussed with the patient however, with improvement in overall general condition and elevated INR I have been holding off on dialysis catheter. Urine output remains 500-600 mL over 24 hours. Zaroxolyn was added yesterday. Objective - Vital Signs Vital signs: Vital Signs Temp 97.6 F 08/20/21 03:04 Pulse 90 08/20/21 07:17 Resp 16 08/20/21 03:04 BP 114/61 08/20/21 03:04 Pulse Ox 94 L 08/20/21 07:06 FiO2 40 08/20/21 07:06 Intake & Output 08/19/21 08/20/21 08/20/21 18:59 06:59 18:59 Intake Total 752.25 153.00 Output Total 250 250 400 Balance 502.25 -97.00 -400 Weight 213.7 kg 212.8 kg Intake: IV 120 Furosemide 100 mg In 120 Sodium Chloride 0.9% 90 ml @ 15 MG/HR 15 mls/hr IV .Q6H40M [facility] Rx#: [id number] Intake, IV Titration 222.25 153.00 Amount Furosemide 100 mg In 172.25 153.00 Sodium Chloride 0.9% 90 ml @ 15 MG/HR 15 mls/hr IV .Q6H40M [facility] Rx#: [id number] cefTRIAXone 1 gm In 50 Sodium Chloride 0.9% 50 ml @ 100 mls/hr IVPB Q24HR [facility] Rx#:[id number] Oral 410 Output: Urine 250 250 400 Other: Voiding Method Indwelling Catheter Indwelling Catheter # Bowel Movements 1 - Exam Awake, comfortable, maintained on nasal cannula. Off of BiPAP Alert oriented 3 On 6 questions appropriately Examination of the heart S1 and S2 Examination lungs bilateral breath sounds are heard Abdomen is soft obese Examination lower extremity shows significant chronic skin changes and significant chronic edema 3-4+ bilaterally - Labs CBC & Chem 7: 08/20/21 08:58 08/20/21 08:58 Labs: Abnormal Lab Results - Last 24 Hours (Table) 08/19/21 08/19/21 08/20/21 Range/Units 11:32 20:28 06:22 WBC (3.8-10.6) k/uL MCHC (31.0-37.0) g/dL RDW (11.5-15.5) % Neutrophils # (1.3-7.7) k/uL PT (9.0-12.0) sec INR (<1.2) Sodium (137-145) mmol/L Chloride (98-107) mmol/L Carbon Dioxide (22-30) mmol/L BUN (7-17) mg/dL Creatinine (0.52-1.04) mg/dL POC Glucose (mg/dL) 113 H 121 H 105 H (75-99) mg/dL Albumin (3.5-5.0) g/dL 08/20/21 08/20/21 08/20/21 Range/Units 08:58 08:58 08:58 WBC 12.7 H (3.8-10.6) k/uL MCHC 29.9 L (31.0-37.0) g/dL RDW 16.4 H (11.5-15.5) % Neutrophils # 10.4 H (1.3-7.7) k/uL PT 13.2 H (9.0-12.0) sec INR 1.3 H (<1.2) Sodium 135 L (137-145) mmol/L Chloride 86 L (98-107) mmol/L Carbon Dioxide 36 H (22-30) mmol/L BUN 67 H (7-17) mg/dL Creatinine 2.29 H (0.52-1.04) mg/dL POC Glucose (mg/dL) (75-99) mg/dL Albumin 3.4 L (3.5-5.0) g/dL Microbiology - Last 24 Hours (Table) 08/17/21 15:18 Urine Culture - Final Urine,Catheterized Escherichia coli 08/18/21 09:12 Blood Culture - Preliminary Blood No Growth after 24 hours Assessment and Plan Assessment: 1. Acute kidney injury, ATN. No evidence of obstruction noted on ultrasound. Patient has an indwelling Claros catheter. Blood pressure is low. Status post IV fluids initially, started on Lasix drip with some improvement in urine output noted today. Zaroxolyn added yesterday. Renal replacement therapy currently on hold given the elevated INR and overall improvement in mentation, urine output and respiratory status. 2. Volume overload with chronic lower extremity edema and chronic hypoxic and hypercapnic respiratory failure. Repeat chest x-ray shows evidence of pulmonary vascular congestion 3. A. fib with RVR 4. Chronic diastolic heart failure 5. Previous history of PE maintained on long-term anticoagulation 6. Morbid obesity 7. UTI with urine culture growing gram-negative bacilli Plan: Continue to hold dialysis for now Continue with Lasix drip and Zaroxolyn Reevaluate on a daily basis for need for renal replacement therapy.
[2021-08-20] MEDS: FOLIC ACID 1 MG TAB PO SCH (10:54)
[2021-08-20] MEDS: metOLazone 5 MG TAB PO SCH ×2 (10:55→22:29)
[2021-08-20] MEDS: DOCUSATE 100 MG CAP PO SCH (10:55)
[2021-08-20] MEDS: FERROUS SULFATE 325 MG TAB PO SCH ×2 (10:55→17:35)
[2021-08-20] MEDS: LEVOTHYROXINE 88 MCG TAB PO SCH (10:55)
[2021-08-20] MEDS: CHOLECALCIFEROL 25 MCG (1000 IU) TABLET PO SCH (10:55)
[2021-08-20] MEDS: METOPROLOL TARTRATE 50 MG TAB PO SCH ×3 (10:55→22:24)
[2021-08-20] MEDS: ESCITALOPRAM 20 MG TAB PO SCH (10:55)
[2021-08-20] MEDS: TRIAMCINOLONE 0.1% CREAM 80 GM TUBE TOPICAL SCH ×2 (10:56→22:25)
[2021-08-20] MEDS: NYSTATIN 100,000UNIT/GM CREAM 30 GM TUBE TOPICAL SCH ×2 (10:56→22:25)
[2021-08-20] MEDS: NYSTATIN 100,000 UNIT/GM POWD 15 GM TOPICAL SCH ×2 (10:56→22:25)
[2021-08-20] MEDS: MIDODRINE 5 MG TAB PO SCH ×3 (10:57→17:35)
[2021-08-20 11:40] LABS: Glucose,Whole Blood 96 mg/dL (75-99)
--- NOTE | 2021-08-20 12:39 | P.PN ---
Subjective Progress Note Date: 08/20/21 On 08/17/2021 patient seen in follow-up on selective care unit. She is awake and alert, in no acute distress, she has been wearing BiPAP intermittently, she is currently on nasal cannula, patient remains on IV Lasix at 50 mg/h. However her urine output has been very minimal, and patient still has significant generalized edema and significant lower extremity edema. Renal function continues to worsen and on today's labs BUN is 56, and creatinine is 2.05. Sodium is 134, potassium is 4.3. Urinalysis showed evidence of acute urinary tract infection. White blood cell count has increased and is up to 16.2, hemoglobin is 10.7. INR is 4.5. No nausea or vomiting, although her appetite is poor. No Complains of chest discomfort. No coughing or wheezing, no fever or chills. On 08/18/2021 patient seen in follow-up on selective care unit, she is awake, answering questions appropriately, she did wear BiPAP support pressures of 12 and 4, and FiO2 40% overnight, she is currently on 4 L of oxygen pulse ox is 93%, she is afebrile, blood pressure is been stable. She remains on Lasix infusion at 15 mg per hour, she is only in -48 cc negative fluid balance over the last 24 hours, she has produced 575 ML of urine, and remains significantly fluid overloaded with anasarca, significant peripheral edema. Chest x-ray today showed diffuse pleural parenchymal changes that are stable in appearance related to CHF. Today's labs have been reviewed, INR is 5.9, sodium is 133, potassium is 4.4, chloride is 88, CO2 is stable at 36, renal function continues to slightly worsen, and BUN is 57, creatinine is 2.22. Urinalysis showed evidence of urinary tract infection, urine culture is currently pending. On 08/19/2021 patient is seen in follow-up on selective care unit. He remains on Lasix drip at 15 mg per hour, however her urine output remains poor, and she is actually in 925 ML positive net fluid balance over the last 24 hours. We requested nursing staff to obtain a current weight, the patient is positive at 19.6 kilos since admission. She is significantly fluid overloaded with anasarca, and severe pitting edema of bilateral lower extremities, abdomen, thighs. Today's labs have been reviewed, showing white blood cell count of 15.6, hemoglobin of 11.2, she received vitamin K for INR of 5.9 yesterday, INR is currently down to 1.4, Coumadin remains on hold, pharmacy is dosing, sodium is 132, potassium is 4.3, chloride is 87, CO2 is 38, BUN is 60, creatinine is 2.29, pro calcitonin level is 0.30, urinalysis showed evidence of urinary tract infection, we will empirically place the patient on Rocephin, and urine culture has been sent., Currently showing gram-negative bacilli, final culture is pending The patient is seen today 08/20/2021 in follow-up on the selective care unit. S he is currently resting in bed. On BiPAP 02/21 on 40% FiO2. She remains on Lasix drip at 15 mg per hour. Remains in a +1 L balance. Weight 212.8 kg. Urine culture positive for E. coli. Blood culture pending. Follow-up urine culture pending. White count 12.7. Hemoglobin 11.5. Platelets 386. INR 1.3. Sodium 135. Potassium 4.3. BUN 67. Creatinine 2.29. Glucose 97. AST 30. ALT 13. She is currently on ertapenem. Continued on bronchodilators. Warfarin dosed per pharmacy. Objective - Vital Signs Vital signs: Vital Signs Temp 97.6 F 08/20/21 03:04 Pulse 90 08/20/21 07:17 Resp 16 08/20/21 03:04 BP 114/61 08/20/21 03:04 Pulse Ox 94 L 08/20/21 07:06 FiO2 40 08/20/21 07:06 Intake & Output 08/19/21 08/20/21 08/20/21 18:59 06:59 18:59 Intake Total 752.25 153.00 100 Output Total 250 250 400 Balance 502.25 -97.00 -300 Weight 213.7 kg 212.8 kg 212.8 kg Intake: IV 120 Furosemide 100 mg In 120 Sodium Chloride 0.9% 90 ml @ 15 MG/HR 15 mls/hr IV .Q6H40M [facility] Rx#: [id number] Intake, IV Titration 222.25 153.00 100 Amount Furosemide 100 mg In 172.25 153.00 100 Sodium Chloride 0.9% 90 ml @ 15 MG/HR 15 mls/hr IV .Q6H40M [facility] Rx#: [id number] cefTRIAXone 1 gm In 50 Sodium Chloride 0.9% 50 ml @ 100 mls/hr IVPB Q24HR [facility] Rx#:[id number] Oral 410 Output: Urine 250 250 400 Other: Voiding Method Indwelling Catheter Indwelling Catheter # Bowel Movements 1 - Exam GENERAL EXAM: Alert, 65-year-old morbidly obese female, on BiPAP support currently 12/5 on 40% FiO2,, comfortable in no apparent distress. HEAD: Normocephalic/atraumatic. EYES: Normal reaction of pupils, equal size. Conjunctiva pink, sclera white. NOSE: Clear with pink turbinates. THROAT: No erythema or exudates. NECK: No masses, no JVD, no thyroid enlargement, no adenopathy. CHEST: No chest wall deformity. Symmetrical expansion. LUNGS: Equal air entry with coarse crackles in the posterior bases CVS: Regular rate and rhythm, normal S1 and S2, no gallops, no murmurs, no rubs ABDOMEN: Soft, obese, nontender No hepatosplenomegaly, normal bowel sounds, no guarding or rigidity. EXTREMITIES: No clubbing, 3+ lower extremity edema no cyanosis, 2+ pulses and upper and lower extremities. MUSCULOSKELETAL: Muscle strength and tone normal. SPINE: No scoliosis or deformity SKIN: No rashes CENTRAL NERVOUS SYSTEM: No focal deficits, tone is normal in all 4 extremities. PSYCHIATRIC: Alert and oriented -3. Appropriate affect. Intact judgment and insight. - Labs CBC & Chem 7: 08/20/21 08:58 08/20/21 08:58 Labs: Abnormal Lab Results - Last 24 Hours (Table) 08/19/21 08/20/21 08/20/21 Range/Units 20:28 06:22 08:58 WBC (3.8-10.6) k/uL MCHC (31.0-37.0) g/dL RDW (11.5-15.5) % Neutrophils # (1.3-7.7) k/uL PT 13.2 H (9.0-12.0) sec INR 1.3 H (<1.2) Sodium (137-145) mmol/L Chloride (98-107) mmol/L Carbon Dioxide (22-30) mmol/L BUN (7-17) mg/dL Creatinine (0.52-1.04) mg/dL POC Glucose (mg/dL) 121 H 105 H (75-99) mg/dL Albumin (3.5-5.0) g/dL 08/20/21 08/20/21 Range/Units 08:58 08:58 WBC 12.7 H (3.8-10.6) k/uL MCHC 29.9 L (31.0-37.0) g/dL RDW 16.4 H (11.5-15.5) % Neutrophils # 10.4 H (1.3-7.7) k/uL PT (9.0-12.0) sec INR (<1.2) Sodium 135 L (137-145) mmol/L Chloride 86 L (98-107) mmol/L Carbon Dioxide 36 H (22-30) mmol/L BUN 67 H (7-17) mg/dL Creatinine 2.29 H (0.52-1.04) mg/dL POC Glucose (mg/dL) (75-99) mg/dL Albumin 3.4 L (3.5-5.0) g/dL Microbiology - Last 24 Hours (Table) 08/18/21 09:12 Blood Culture - Preliminary Blood No Growth after 48 hours 08/17/21 15:18 Urine Culture - Final Urine,Catheterized Escherichia coli Assessment and Plan Assessment: 1 Acute shortness of breath, acute on chronic with evidence of worsening CHF with diastolic dysfunction. Chest x-ray findings are consistent with CHF, cardiomegaly and pulmonary edema and increased lower extremity edema related to decompensated CHF. 2 Acute on chronic hypoxic/hypercapnic respiratory failure on BiPAP alternating with nasal cannula 3 Acute kidney injury patient is oliguric, nephrology is on the case. Patient is having minimal urine output and has poor response to diuretics 4 CHF with probable biventricular diastolic heart failure with acute decompensation is significant volume overload 5 New onset atrial fibrillation, currently controlled with oral amiodarone and metoprolol 6 Chronic hypoxic respiratory failure 7 Morbid obesity with BMI of 73.5 kg/m 8 Chronic hypoxic and hypercapnic respiratory failure with a component of obesity hypoventilation syndrome 9 Hypertension 10 Previous history of pulmonary embolism on Coumadin 11 Hypothyroidism 12 Chronic lower extremity edema 13 Diabetes mellitus 14 Resident of a extended care facility Plan: The patient was seen and evaluate Minimal response to IV diuretics and Zaroxolyn Continues with significant fluid overload Remains on BiPAP support Tonight with nasal cannula as tolerated Dialysis remains on hold per nephrology, evaluating daily We will continue to follow I have personally seen and examined the patient, performed the documentation and the assessment and plan as written. Number of minutes spent on the visit: 10.
[2021-08-20] MEDS: LACTOBACILLUS ACIDOPH & BULGAR 1 EACH PACKET PO SCH (12:49)
--- NOTE | 2021-08-20 13:36 | P.PN ---
Subjective This is a 65-year-old female with a past medical history significant for COPD, hypertension, hypothyroidism, and PE/DVT on Coumadin. Patient was last seen in the office in [address] Carlos. We have been asked to see the patient in consultation for A. fib with RVR and congestive heart failure. The patient apparently was brought to the hospital from [facility] secondary to hypoxia. The patient states when they checked her oxygen saturations on her finger she was found to be 75%. The patient was found to be in A. fib with RVR. The patient denies any history of atrial fibrillation. The patient was started on a Cardizem drip at 10 mg an hour. She remains in atrial fibrillation this morning with a heart rate in the 120s. Echocardiogram completed revealing ejection fraction 40-45%, severe right ventricular dilatation, mild tricuspid regurgitation, and moderate pericardial effusion. Patient was found to have an elevated d-dimer 1.58. CTA chest was ordered. Per nursing, this was cancelled as patient was unable to fit in CT machine due to body habitus. 08/20/2021 Patient seen and examined at bedside, no acute distress. She is awake, lethargic, no significant change from yesterday. She continues BIPAP overnight. 4L nasal cannula this morning. No chest pain. Denies shortness of breath. She remains in atrial fibrillation with controlled ventricular rates. Her amiodarone was discontinued due to elevated INR. She is currently maintained on metoprolol tartrate 50mg TID. IV Lasix drip 15mg/hr and metolazone 5mg BID. IV Eratapenem per infectious disease. Patient had decreased urine output. Over the last 24 hours, Urine output remains 500-600 mL, Nephrology following. INR 1.3 today. Coumadin has been restarted. Sodium 135, potassium 4.3, BUN 67, serum creatinine 2.2 PHYSICAL EXAM: VITAL SIGNS: Reviewed. GENERAL: In no acute distress. HEENT: Neck supple. No JVD LUNGS: Respirations even and unlabored. Lungs diminished to auscultation bilaterally. HEART: Irregular rate and rhythm. S1 and S2 heard. ABDOMEN: Soft. Nondistended. Nontender. EXTREMITIES: Normal range of motion. No clubbing or cyanosis. Peripheral pulses intact. Bilateral lower extremity edema present NEUROLOGIC: Somnolent on BIPAP ASSESSMENT: New onset Paroxysmal atrial fibrillation with RVR Acute hypoxic respiratory failure Acute on chronic heart failure with preserved ejection fraction COPD Hypertension Hypothyroidism History of PE/DVT on Coumadin Diabetes Moderate pericardial effusion Elevated d-dimer, unable to have CTA due to body habitus Acute kidney injury CO2 narcosis Morbid obesity PLAN: Continue metoprolol to 50mg TID Coumadin as been resumed Continues to be on IV Lasix drip and metolazone per nephrology. Dialysis on hold Monitor I/Os daily weights, renal function and electrolytes Monitor INR and CBC Prognosis is poor No further changes from a cardiology perspective at this time. We will follow the patient as needed. Please reconsult if needed. Nurse practitioner note has been reviewed by physician. Signing provider agrees with the documented findings, assessment, and plan of care. Objective - Vital Signs Vital signs: Vital Signs Temp 96.9 F L 08/20/21 08:00 Pulse 76 08/20/21 12:00 Resp 18 08/20/21 08:00 BP 123/56 08/20/21 12:00 Pulse Ox 93 L 08/20/21 12:00 FiO2 40 08/20/21 07:06 Intake & Output 08/19/21 08/20/21 08/20/21 18:59 06:59 18:59 Intake Total 752.25 153.00 100 Output Total 250 250 400 Balance 502.25 -97.00 -300 Weight 213.7 kg 212.8 kg 212.8 kg Intake: IV 120 Furosemide 100 mg In 120 Sodium Chloride 0.9% 90 ml @ 15 MG/HR 15 mls/hr IV .Q6H40M [facility] Rx#: [id number] Intake, IV Titration 222.25 153.00 100 Amount Furosemide 100 mg In 172.25 153.00 100 Sodium Chloride 0.9% 90 ml @ 15 MG/HR 15 mls/hr IV .Q6H40M [facility] Rx#: [id number] cefTRIAXone 1 gm In 50 Sodium Chloride 0.9% 50 ml @ 100 mls/hr IVPB Q24HR [facility] Rx#:[id number] Oral 410 Output: Urine 250 250 400 Other: Voiding Method Indwelling Catheter Indwelling Catheter Indwelling Catheter # Bowel Movements 1 - Labs CBC & Chem 7: 08/20/21 08:58 08/20/21 08:58 Labs: Abnormal Lab Results - Last 24 Hours (Table) 08/19/21 08/20/21 08/20/21 Range/Units 20:28 06:22 08:58 WBC (3.8-10.6) k/uL MCHC (31.0-37.0) g/dL RDW (11.5-15.5) % Neutrophils # (1.3-7.7) k/uL PT 13.2 H (9.0-12.0) sec INR 1.3 H (<1.2) Sodium (137-145) mmol/L Chloride (98-107) mmol/L Carbon Dioxide (22-30) mmol/L BUN (7-17) mg/dL Creatinine (0.52-1.04) mg/dL POC Glucose (mg/dL) 121 H 105 H (75-99) mg/dL Albumin (3.5-5.0) g/dL 08/20/21 08/20/21 Range/Units 08:58 08:58 WBC 12.7 H (3.8-10.6) k/uL MCHC 29.9 L (31.0-37.0) g/dL RDW 16.4 H (11.5-15.5) % Neutrophils # 10.4 H (1.3-7.7) k/uL PT (9.0-12.0) sec INR (<1.2) Sodium 135 L (137-145) mmol/L Chloride 86 L (98-107) mmol/L Carbon Dioxide 36 H (22-30) mmol/L BUN 67 H (7-17) mg/dL Creatinine 2.29 H (0.52-1.04) mg/dL POC Glucose (mg/dL) (75-99) mg/dL Albumin 3.4 L (3.5-5.0) g/dL Microbiology - Last 24 Hours (Table) 08/18/21 09:12 Blood Culture - Preliminary Blood No Growth after 48 hours 08/17/21 15:18 Urine Culture - Final Urine,Catheterized Escherichia coli
[2021-08-20] MEDS: ERTAPENEM 0.5 GM in SODIUM CHLORIDE 0.9% 50 ML IVPB SCH (13:45)
[2021-08-20 16:43] LABS: Glucose,Whole Blood 75 mg/dL (75-99)
[2021-08-20] MEDS: ASCORBIC ACID 500 MG TAB PO SCH (17:34)
[2021-08-20] MEDS: MULTIVITAMINS, THERA 1 EACH TAB PO SCH (17:34)
[2021-08-20] MEDS: MEGESTROL 40 MG TAB PO SCH (17:34)
[2021-08-20] MEDS: LINAGLIPTIN 5 MG TABLET PO SCH (17:35)
[2021-08-20] MEDS: CALCIUM CARB-VIT D 500 MG-5 MCG TAB PO SCH (17:35)
[2021-08-20] MEDS: CALCIUM CARBONATE 500 MG CHEWABLE PO SCH (17:35)
[2021-08-20] MEDS: CYANOCOBALAMIN 500 MCG TAB PO SCH (17:35)
[2021-08-20] MEDS ORDERED: WARFARIN 2.5 MG TAB PO ONE (18:00)
--- NOTE | 2021-08-20 20:05 | P.PN ---
Subjective Progress Note Date: 08/20/21 This 65-year-old female was recently admitted with CHF and atrial fibrillation cardio following closely. Patient was maintained on IV Cardizem which is currently being transitioned IV amiodarone along with IV heparin. 2-D echo was ordered and pending at this time. Patient continues on 2 L of oxygen via nasal cannula at 90% oxygen pulse ox and continues to report shortness of breath and generalized weakness. Patient is morbidly obese with a BMI of 73.5 and resides in [place] Patient's blood pressure is elevated and will initiate Norvasc 10 mg daily and monitor closely. Infectious disease also consulted for a wound on the left hip along with pulmonary for COPD acute exacerbation. Patient denies any chest pain and patient is afebrile. 08/13/2021 Patient is seen today in follow up and continues to report shortness of breath. Cardiology and pulmonary and ID following. Patient is continued on bronchodilators and also continues on IV lasix. IV heparin continued and being started on coumadin. Transitioned to oral amiodarone and cardiology adjusting medications. Patient denies chest pain and is afebrile. 08/14/2021 Patient is seen this am and continues with cardiology and pulmonary following. Neprhology consulted for elevated kidney functions and patient is continued on IV lasix. US renal/bladder and pending. Patient continues with 3L via NC and breathing treatments along with IV heparin and coumadin with pharmacy to dose. Cardiology also following. Patient is afebrile and denies any chest pain. Patient reports not eating or drinking. 08/15/2021 Patient is seen today and continues with worsening renal functions and also some hypotension. Patient was maintained on IV heparin with coumadin and INR is 2.6 today and will dc heparin. Patient with hypotension and adding some midodrine and per nephro will give a 250ml bolus. Off IV lasix for now given worsening renal functions. Poor oral intake and decreased urine output from yesterday. Continue lacy catheter and encouraged oral intake. Patient is more lethargic today as well. 08/16/2021 Patient is seen in follow-up currently maintained on BiPAP and continues with shortness of breath. Multiple medical consultations following including pulmonary, nephrology, cardiology and patient continues with volume overload and is being started on IV Lasix. Patient with worsening kidney functions and decreased urine output although bladder and abdomen ultrasound showed no evidence of hydronephrosis. Patient also transition to Coumadin and INR is 4.0 and recommend to hold Coumadin and repeat labs. Sodium is 133 with a potassium of 4.3, BUN is 50, creatinine is 2.03. Patient not really tolerating any oral diet and difficult given the BiPAP is continuous at this time. Patient is anxious with family friend at the bedside. Patient is afebrile and denies any chest pain. Patient to continue with local wound care per ID with frequent position changes as well. 08/17/2021 Patient is seen this morning and continues on IV lasix drip with cardiology, pulmonary, and nephrology following. Patient is on bipap and continues with poor oral intake and minimal urine output. Indwelling catheter for strict monitoring of intake and output. Patient did have some brief periods of attempting nasal cannula and was able to take medications and have 2cups of applesauce per waitstaff captain. WBC is elevated and CXR ordered. Patient is afebrile and denies chest pain. 08/18/2021 Patient is seen in follow-up this morning continues on IV Lasix drip with nephrology and cardiology following closely. Patient also continues on IV ceftriaxone and also has been transitioned and titrated down on oral amiodarone. Patient morning labs pending at this time and patient is normally on Coumadin although currently held as patient was having elevated INR. Will follow-up with morning labs. Patient is now off BiPAP this morning and maintained on 4 L was 93-94% oxygen saturation. Urine output is decreased but has slowly improved. Oral intake is poor. Patient is afebrile and denies any chest pain or worsening shortness of breath. 08/19/2021 Patient is seen in follow-up this morning and mentation is slowly improving although patient continues to be lethargic and is continued on BiPAP at night and as needed and also currently maintained on 4 L via nasal cannula. Patient continues on IV Lasix drip with some improvement in urine output and will continue with indwelling Lacy catheter. Urine with urine culture was done and preliminary showing gram-negative bacilli with ID following and IV ceftriaxone being initiated. Patient's INR improved after vitamin K administration and will continue with Coumadin with pharmacy to dose. Patient is afebrile and denies any worsening shortness of breath or chest pain. Patient is asking if she can return home. Patient is a resident at [facility]. 08/20/2021 Patient is seen this morning and is more awake and alert and reports to feeling better and would like to go home. Discussed with patient about continuing on IV lasix and will need to transition to oral once kidney functions improve. Urine output has improved. Oral intake is poor and will add Megase. Discussed with dietitian. Patient also being switched to IV invanz with ID following for UTI as repeat urine remains growing gram negative. Will await cultures. Patient is afebrile. Patient denies chest pains. Review of systems: Constitutional: reports of fatigue and weakness, no reports of fever, or chills Cardiovascular: No reports of chest pain or palpitations Respiratory: reports of shortness of breath with some improvement GI: No reports of nausea, no reports of of vomiting, poor appetite : No reports of dysuria or retention, currently with indwelling catheter Neurovascular: reports of generalized weakness All medications have been reviewed Active Medications Acetaminophen (Acetaminophen Tab 325 Mg Tab) 650 mg PO Q6HR PRN PRN Reason: Mild Pain or Fever > 100.5 Last Admin: 08/18/21 08:46 Dose: 650 mg Albuterol/Ipratropium (Ipratropium-Albuterol 3 Ml Neb) 3 ml INHALATION RT-TID [facility] Last Admin: 08/20/21 12:13 Dose: Not Given Ascorbic Acid (Ascorbic Acid 500 Mg Tab) 500 mg PO DAILY@1700 [facility] Last Admin: 08/20/21 17:34 Dose: 500 mg Atorvastatin Calcium (Atorvastatin 20 Mg Tab) 20 mg PO [facility] Last Admin: 08/19/21 21:33 Dose: 20 mg Bisacodyl (Bisacodyl 10 Mg Supp) 10 mg RECTAL DAILY PRN PRN Reason: Constipation Calcium Carbonate (Calcium Carb-Vit D 500 Mg-5 Mcg Tab) 1 each PO DAILY@1700 [facility] Last Admin: 08/20/21 17:35 Dose: Not Given Calcium Carbonate/Glycine (Calcium Carbonate 500 Mg Chewable) 500 mg PO DAILY@1700 [facility] Last Admin: 08/20/21 17:35 Dose: 500 mg Cholecalciferol (Cholecalciferol 25 Mcg (1000 Iu) Tablet) 100 mcg PO DAILY@1200 [facility] Last Admin: 08/20/21 10:55 Dose: 100 mcg Cyanocobalamin (Cyanocobalamin 500 Mcg Tab) 500 mcg PO DAILY@1700 [facility] Last Admin: 08/20/21 17:35 Dose: 500 mcg Docusate Sodium (Docusate 100 Mg Cap) 100 mg PO DAILY@1000 [facility] Last Admin: 08/20/21 10:55 Dose: 100 mg Escitalopram Oxalate (Escitalopram 20 Mg Tab) 20 mg PO DAILY@1000 [facility] Last Admin: 08/20/21 10:55 Dose: 20 mg Ferrous Sulfate (Ferrous Sulfate 325 Mg Tab) 325 mg PO BID@1000,1700 [facility] Last Admin: 08/20/21 17:35 Dose: 325 mg Folic Acid (Folic Acid 1 Mg Tab) 0.5 mg PO DAILY@1000 [facility] Last Admin: 08/20/21 10:54 Dose: 0.5 mg Glipizide (Glipizide 2.5 Mg Tab) 2.5 mg PO DAILY@1000 [facility] Last Admin: 08/20/21 10:55 Dose: 2.5 mg Furosemide 100 mg/ Sodium (Chloride) 100 mls @ 15 mls/hr IV .Q6H40M [facility] Last Admin: 08/20/21 17:34 Dose: 15 mg/hr, 15 mls/hr Ertapenem 0.5 gm/ Sodium (Chloride) 50 mls @ 100 mls/hr IVPB DAILY [facility]; Protocol Last Admin: 08/20/21 13:45 Dose: 100 mls/hr Insulin Aspart (Insulin Aspart (Novolog) 100 Unit/Ml Vial) 0 unit SQ ACHS [facility]; Protocol Last Admin: 08/20/21 17:35 Dose: Not Given Lactobacillus Acidoph/Bulgaricus (Lactobacillus Acidoph & Bulgar 1 Each Packet) 1 each PO DAILY@1200 [facility] Last Admin: 08/20/21 12:49 Dose: Not Given Levothyroxine Sodium (Levothyroxine 88 Mcg Tab) 88 mcg PO DAILY@1000 [facility] Last Admin: 08/20/21 10:55 Dose: 88 mcg Lidocaine (Lidocaine 5% Ointment 50 Gm Jar) 1 applic TOPICAL HS PRN PRN Reason: WOUND PAIN Linagliptin (Linagliptin 5 Mg Tablet) 5 mg PO DAILY@1700 [facility] Last Admin: 08/20/21 17:35 Dose: 5 mg Magnesium Hydroxide (Magnesium Hydroxide 2,400 Mg/10 Ml Cup) 2,400 mg PO Q48H PRN PRN Reason: Constipation Megestrol Acetate (Megestrol 40 Mg Tab) 40 mg PO DAILY [facility] Last Admin: 08/20/21 17:34 Dose: 40 mg Methyl Salicylate (Methyl Salicylate-Menthol Oint (3 Oz Tube)) 1 applic TOPICAL DAILY PRN PRN Reason: pain Metolazone (Metolazone 5 Mg Tab) 5 mg PO BID [facility] Last Admin: 08/20/21 10:55 Dose: 5 mg Metoprolol Tartrate (Metoprolol Tartrate 50 Mg Tab) 50 mg PO TID [facility] Last Admin: 08/20/21 17:35 Dose: 50 mg Midodrine (Midodrine 5 Mg Tab) 5 mg PO AC-TID [facility] Last Admin: 08/20/21 17:35 Dose: Not Given Miscellaneous Information (Warfarin Per Pharmacy) 1 each MISCELLANE DIRECTED PRN; Protocol PRN Reason: Per Protocol Multivitamins (Multivitamins, Thera 1 Each Tab) 1 each PO DAILY@1700 [facility] Last Admin: 08/20/21 17:34 Dose: 1 each Naloxone HCl (Naloxone 0.4 Mg/Ml 1 Ml Vial) 0.2 mg IV Q2M PRN PRN Reason: Opioid Reversal Nystatin (Nystatin 100,000 Unit/Gm Powd 15 Gm) 1 applic TOPICAL BID [facility]; Protocol Last Admin: 08/20/21 10:56 Dose: 1 applic Nystatin (Nystatin 100,000unit/Gm Cream 30 Gm Tube) 1 applic TOPICAL BID [facility] Last Admin: 08/20/21 10:56 Dose: 1 applic Pantoprazole Sodium (Pantoprazole 40 Mg Tablet) 40 mg PO HS@2200 [facility] Last Admin: 08/19/21 21:33 Dose: 40 mg Simethicone (Simethicone 80 Mg Chewable) 80 mg PO PC-TID PRN PRN Reason: UPPERGASTRIC DISTRESS Triamcinolone Acetonide (Triamcinolone 0.1% Cream 80 Gm Tube) 1 applic TOPICAL BID [facility] Last Admin: 08/20/21 10:56 Dose: 1 applic PHYSICAL EXAMINATION: GENERAL: The patient is alert and oriented x3, morbidly obese Well developed, well nourished. less anxious today and on 4L via [place] HEENT: Pupils are round and equally reacting to light. EOMI. no scleral icterus. No conjunctival pallor. Normocephalic, atraumatic. No pharyngeal erythema. No thyromegaly. CARDIOVASCULAR: S1 and S2 muffled PULMONARY: diminished breath sounds bilaterally with some crackles and scattered rhonchi noted. ABDOMEN: soft. Nontender on exam. obese. non-distended, normoactive bowel sounds. No palpable organomegaly. MUSCULOSKELETAL: No joint swelling or deformity. EXTREMITIES: No cyanosis, clubbing, or pedal edema. Generalized edema noted throughout NEUROLOGICAL: Gross neurological examination did not reveal any focal deficits. Diffuse weakness SKIN: No rashes. Assessment: Atrial fibrillation with RVR new onset Congestive heart failure, acute exacerbation with preserved EF Acute urinary tract infection present on admission possibly secondary to urinary retention now growing gram-negative bacilli Morbid obesity with a BMI of 73.5 acute kidney injury Coagulopathy on coumadin COPD, acute exacerbation Diabetes mellitus, type 2 History of PE HIstory of esbl, MRSA Left hip wound GI prophylaxis DVT prophylaxis Full code Plan: Recommend to continue with current medications and management with cardiology following. Infectious disease following for left hip wound and will continue Local wound care and frequent position changes. Repeat urine culture preliminary showing gram-negative bacilli. Transitioned to IV INvanz. Awaiting cultures. Pulmonary also following and will continue on breathing inhalational treatments. INR improved after vitamin K administration and will continue with Coumadin with pharmacy to dose. INR is 1.4. Recommend to continue telemetry monitoring. Patient weaning FI02 as tolerated and currently on 4L via NC and recommend to continue with Bipap from 8pm to 8am and as needed. Nephrology following for worsening kidney functions and significant overload and patient is maintained on IV Lasix drip with close monitoring and recommend follow-up labs. Output improved and will continue lacy for now. Strict intake and output. Patient is a resident at [facility] and will be returning there once stabilized and discharged. Will discuss with case management/social work about having Bipap in the outpatient setting. Due to multiple complex medical issues, prognosis is extremely guarded. The impression and plan of care has been dictated by Shefali Becerra nurse practitioner as directed. Dr. Gee MD I have performed a history and examination and MDM of this patient, discussed the same with the dictator, and agree with the dictator's assessment and plan as written ,documented as a scribe. Based on total visit time, I have performed more than 50% of the visit. Any additional findings or plans will be noted. Objective - Vital Signs Vital signs: Vital Signs Temp 96.9 F L 08/20/21 08:00 Pulse 78 08/20/21 16:00 Resp 18 08/20/21 14:00 BP 105/62 08/20/21 16:00 Pulse Ox 95 08/20/21 16:00 FiO2 40 08/20/21 07:06 Intake & Output 08/20/21 08/20/21 08/21/21 06:59 18:59 06:59 Intake Total 153.00 420 Output Total 250 400 Balance -97.00 20 Weight 212.8 kg 212.8 kg Intake: IV 120 Furosemide 100 mg In 120 Sodium Chloride 0.9% 90 ml @ 15 MG/HR 15 mls/hr IV .Q6H40M [facility] Rx#: [id number] Intake, IV Titration 153.00 300 Amount Ertapenem 0.5 gm In 50 Sodium Chloride 0.9% 50 ml @ 100 mls/hr IVPB DAILY [facility] Rx#:[id number] Furosemide 100 mg In 153.00 200 Sodium Chloride 0.9% 90 ml @ 15 MG/HR 15 mls/hr IV .Q6H40M [facility] Rx#: [id number] cefTRIAXone 1 gm In 50 Sodium Chloride 0.9% 50 ml @ 100 mls/hr IVPB Q24HR [facility] Rx#:[id number] Output: Urine 250 400 Other: Voiding Method Indwelling Catheter Indwelling Catheter # Bowel Movements 1 - Labs CBC & Chem 7: 08/20/21 08:58 08/20/21 08:58 Labs: Abnormal Lab Results - Last 24 Hours (Table) 08/19/21 08/20/21 08/20/21 Range/Units 20:28 06:22 08:58 WBC (3.8-10.6) k/uL MCHC (31.0-37.0) g/dL RDW (11.5-15.5) % Neutrophils # (1.3-7.7) k/uL PT 13.2 H (9.0-12.0) sec INR 1.3 H (<1.2) Sodium (137-145) mmol/L Chloride (98-107) mmol/L Carbon Dioxide (22-30) mmol/L BUN (7-17) mg/dL Creatinine (0.52-1.04) mg/dL POC Glucose (mg/dL) 121 H 105 H (75-99) mg/dL Albumin (3.5-5.0) g/dL 08/20/21 08/20/21 Range/Units 08:58 08:58 WBC 12.7 H (3.8-10.6) k/uL MCHC 29.9 L (31.0-37.0) g/dL RDW 16.4 H (11.5-15.5) % Neutrophils # 10.4 H (1.3-7.7) k/uL PT (9.0-12.0) sec INR (<1.2) Sodium 135 L (137-145) mmol/L Chloride 86 L (98-107) mmol/L Carbon Dioxide 36 H (22-30) mmol/L BUN 67 H (7-17) mg/dL Creatinine 2.29 H (0.52-1.04) mg/dL POC Glucose (mg/dL) (75-99) mg/dL Albumin 3.4 L (3.5-5.0) g/dL Microbiology - Last 24 Hours (Table) 08/18/21 Unknown Urine Culture - Preliminary Urine,Voided Gram Neg Bacilli 08/17/21 15:18 Urine Culture - Final Urine,Catheterized Escherichia coli 08/18/21 09:12 Blood Culture - Preliminary Blood No Growth after 48 hours
[2021-08-20 20:37] LABS: Glucose,Whole Blood 88 mg/dL (75-99)
[2021-08-20] MEDS: PANTOPRAZOLE 40 MG TABLET PO SCH (22:24)
[2021-08-20] MEDS: ATORVASTATIN 20 MG TAB PO SCH (22:24)
[2021-08-21] MEDS: FUROSEMIDE 100 MG in SODIUM CHLORIDE 0.9% 90 ML IV SCH ×4 (00:07→23:37)
[2021-08-21 06:35] LABS: Glucose,Whole Blood 93 mg/dL (75-99)
[2021-08-21 07:12] LABS: Anisocytosis Slight; Basophils % (A) 0 %; Eosinophils % (A) 0 %; HCT 37.2 % (34.0-46.0); HGB 11.2 gm/dL (11.4-16.0); Hypochromasia Marked; Lymphocytes # (A) 1.7 k/uL (1.0-4.8); Lymphocytes % (A) 15 %; MCH 28.5 pg (25.0-35.0); MCV 94.9 fL (80.0-100.0); Mean Platelet Volume 6.9; Monocytes # (A) 0.6 k/uL (0-1.0); Monocytes % (A) 5 %; Neutrophils # (A) 8.8 k/uL (1.3-7.7); Neutrophils % (A) 78 %; Platelet Count 372 k/uL (150-450); RBC 3.92 m/uL (3.80-5.40); RDW 16.3 % (11.5-15.5); WBC 11.4 k/uL (3.8-10.6)
[2021-08-21 07:15] LABS: INR 1.4 (<1.2); Prothrombin Time 14.5 sec (9.0-12.0)
[2021-08-21] MEDS: INSULIN ASPART (NovoLOG) 100 UNIT/ML VIAL SQ SCH ×3 (07:35→17:11)
[2021-08-21 07:39] LABS: Calcium 8.7 mg/dL (8.4-10.2); Potassium 3.8 mmol/L (3.5-5.1)
[2021-08-21] MEDS: MIDODRINE 5 MG TAB PO SCH ×3 (07:40→17:18)
[2021-08-21] MEDS: IPRATROPIUM-ALBUTEROL 3 ML NEB INHALATION SCH ×3 (08:21→19:09)
[2021-08-21] MEDS: ESCITALOPRAM 20 MG TAB PO SCH (08:44)
[2021-08-21] MEDS: LEVOTHYROXINE 88 MCG TAB PO SCH (08:44)
[2021-08-21] MEDS: METOPROLOL TARTRATE 50 MG TAB PO SCH ×3 (08:44→19:43)
[2021-08-21] MEDS: FOLIC ACID 1 MG TAB PO SCH (08:44)
[2021-08-21] MEDS: DOCUSATE 100 MG CAP PO SCH (08:45)
[2021-08-21] MEDS: FERROUS SULFATE 325 MG TAB PO SCH ×2 (08:45→17:18)
[2021-08-21] MEDS: ERTAPENEM 0.5 GM in SODIUM CHLORIDE 0.9% 50 ML IVPB SCH (08:45)
[2021-08-21] MEDS: NYSTATIN 100,000UNIT/GM CREAM 30 GM TUBE TOPICAL SCH ×2 (08:47→19:43)
[2021-08-21] MEDS: MEGESTROL 40 MG TAB PO SCH (08:47)
[2021-08-21] MEDS: TRIAMCINOLONE 0.1% CREAM 80 GM TUBE TOPICAL SCH ×2 (08:47→19:44)
[2021-08-21] MEDS: NYSTATIN 100,000 UNIT/GM POWD 15 GM TOPICAL SCH ×2 (08:47→19:43)
[2021-08-21] MEDS: metOLazone 5 MG TAB PO SCH ×2 (08:47→19:43)
--- NOTE | 2021-08-21 10:56 | P.PN ---
Subjective Patient is seen in follow-up for acute kidney injury. Creatinine 2.42 today. Urine output improved. Maintain on Lasix drip and metolazone. Oral intake fair. Denies vomiting or diarrhea. Hemodynamically stable. No chest pain or shortness of breath. On 4 L nasal cannula. Vital signs stable. General: No acute distress. HEENT: Head exam is unremarkable. On nasal cannula. LUNGS: Breath sounds decreased. HEART: Rate and Rhythm are regular. ABDOMEN: Soft, obese. EXTREMITITES: 2+ edema. Objective - Vital Signs Vital signs: Vital Signs Temp 97.3 F L 08/21/21 08:00 Pulse 104 H 08/21/21 08:31 Resp 17 08/21/21 08:00 BP 118/59 08/21/21 08:00 Pulse Ox 94 L 08/21/21 08:25 FiO2 40 08/21/21 04:04 Intake & Output 08/20/21 08/21/21 08/21/21 18:59 06:59 18:59 Intake Total 420 318.25 Output Total 400 1000 Balance 20 -681.75 Weight 212.8 kg Intake: IV 120 120 Furosemide 100 mg In 120 120 Sodium Chloride 0.9% 90 ml @ 15 MG/HR 15 mls/hr IV .Q6H40M [facility] Rx#: [id number] Intake, IV Titration 300 198.25 Amount Ertapenem 0.5 gm In 50 Sodium Chloride 0.9% 50 ml @ 100 mls/hr IVPB DAILY [facility] Rx#:[id number] Furosemide 100 mg In 200 198.25 Sodium Chloride 0.9% 90 ml @ 15 MG/HR 15 mls/hr IV .Q6H40M [facility] Rx#: [id number] cefTRIAXone 1 gm In 50 Sodium Chloride 0.9% 50 ml @ 100 mls/hr IVPB Q24HR [facility] Rx#:[id number] Output: Urine 400 1000 Other: Voiding Method Indwelling Catheter Indwelling Catheter Indwelling Catheter - Labs CBC & Chem 7: 08/21/21 06:42 08/21/21 06:42 Labs: Abnormal Lab Results - Last 24 Hours (Table) 08/21/21 08/21/21 08/21/21 Range/Units 06:42 06:42 06:42 WBC 11.4 H (3.8-10.6) k/uL Hgb 11.2 L (11.4-16.0) gm/dL MCHC 30.0 L (31.0-37.0) g/dL RDW 16.3 H (11.5-15.5) % Neutrophils # 8.8 H (1.3-7.7) k/uL PT 14.5 H (9.0-12.0) sec INR 1.4 H (<1.2) Sodium 134 L (137-145) mmol/L Chloride 87 L (98-107) mmol/L Carbon Dioxide 39 H (22-30) mmol/L BUN 69 H (7-17) mg/dL Creatinine 2.42 H (0.52-1.04) mg/dL Microbiology - Last 24 Hours (Table) 08/18/21 Unknown Urine Culture - Preliminary Urine,Voided Gram Neg Bacilli 08/17/21 15:18 Urine Culture - Final Urine,Catheterized Escherichia coli 08/18/21 09:12 Blood Culture - Preliminary Blood No Growth after 48 hours Assessment and Plan Plan: Assessment: 1. Acute kidney injury secondary to ATN secondary to cardiorenal syndrome and infection. Baseline creatinine near 1 and is 2.42 today. Urine output improved. Nonoliguric. No proteinuria on UA done 08/18/2021. No hydronephrosis noted on kidney ultrasound. 2. Acute on chronic systolic CHF with ejection fraction of 40-45%. 3. Volume overload. 4. E. coli UTI on antibiotics. 5. Diabetes mellitus. 6. A. fib with RVR maintained on metoprolol and Coumadin. Cardiology follo wing. Plan: Maintain Lasix drip and metolazone. Low-salt diet and 1500 mL fluid restriction. Avoid nephrotoxins. Continue to monitor renal function and urine output. Continue to assess daily for need for renal replacement therapy.
[2021-08-21 11:28] LABS: Glucose,Whole Blood 97 mg/dL (75-99)
--- NOTE | 2021-08-21 12:10 | P.PN ---
Subjective Progress Note Date: 08/21/21 On 08/17/2021 patient seen in follow-up on selective care unit. She is awake and alert, in no acute distress, she has been wearing BiPAP intermittently, she is currently on nasal cannula, patient remains on IV Lasix at 50 mg/h. However her urine output has been very minimal, and patient still has significant generalized edema and significant lower extremity edema. Renal function continues to worsen and on today's labs BUN is 56, and creatinine is 2.05. Sodium is 134, potassium is 4.3. Urinalysis showed evidence of acute urinary tract infection. White blood cell count has increased and is up to 16.2, hemoglobin is 10.7. INR is 4.5. No nausea or vomiting, although her appetite is poor. No Complains of chest discomfort. No coughing or wheezing, no fever or chills. On 08/18/2021 patient seen in follow-up on selective care unit, she is awake, answering questions appropriately, she did wear BiPAP support pressures of 12 and 4, and FiO2 40% overnight, she is currently on 4 L of oxygen pulse ox is 93%, she is afebrile, blood pressure is been stable. She remains on Lasix infusion at 15 mg per hour, she is only in -48 cc negative fluid balance over the last 24 hours, she has produced 575 ML of urine, and remains significantly fluid overloaded with anasarca, significant peripheral edema. Chest x-ray today showed diffuse pleural parenchymal changes that are stable in appearance related to CHF. Today's labs have been reviewed, INR is 5.9, sodium is 133, potassium is 4.4, chloride is 88, CO2 is stable at 36, renal function continues to slightly worsen, and BUN is 57, creatinine is 2.22. Urinalysis showed evidence of urinary tract infection, urine culture is currently pending. On 08/19/2021 patient is seen in follow-up on selective care unit. He remains on Lasix drip at 15 mg per hour, however her urine output remains poor, and she is actually in 925 ML positive net fluid balance over the last 24 hours. We requested nursing staff to obtain a current weight, the patient is positive at 19.6 kilos since admission. She is significantly fluid overloaded with anasarca, and severe pitting edema of bilateral lower extremities, abdomen, thighs. Today's labs have been reviewed, showing white blood cell count of 15.6, hemoglobin of 11.2, she received vitamin K for INR of 5.9 yesterday, INR is currently down to 1.4, Coumadin remains on hold, pharmacy is dosing, sodium is 132, potassium is 4.3, chloride is 87, CO2 is 38, BUN is 60, creatinine is 2.29, pro calcitonin level is 0.30, urinalysis showed evidence of urinary tract infection, we will empirically place the patient on Rocephin, and urine culture has been sent., Currently showing gram-negative bacilli, final culture is pending The patient is seen today 08/20/2021 in follow-up on the selective care unit. S he is currently resting in bed. On BiPAP 12/5 on 40% FiO2. She remains on Lasix drip at 15 mg per hour. Remains in a +1 L balance. Weight 212.8 kg. Urine culture positive for E. coli. Blood culture pending. Follow-up urine culture pending. White count 12.7. Hemoglobin 11.5. Platelets 386. INR 1.3. Sodium 135. Potassium 4.3. BUN 67. Creatinine 2.29. Glucose 97. AST 30. ALT 13. She is currently on ertapenem. Continued on bronchodilators. Warfarin dosed per pharmacy. The patient is seen today 08/21/2021 in follow-up on the selective care unit. She is currently awake and alert in no acute distress. Resting comfortably in bed. Maintaining O2 saturations in the 90s on 4 L/m per nasal cannula. She had been alternating with BiPAP 12/5 and 40% FiO2. She is currently afebrile. Hemodynamically stable. She remains on a Lasix drip at 15 mg per hour. Current weight 212.8 kg. Still in a positive balance. Urine culture positive for E. coli. Blood culture revealed no growth. White count 11.4. Hemoglobin 11.2. Platelets 372. INR 1.4. Sodium 134. Potassium 3.8. BUN 69. Creatinine 2.42. She is continued on antibiotics in the form of ertapenem. Warfarin dosing per pharmacy. Objective - Vital Signs Vital signs: Vital Signs Temp 97.8 F 08/21/21 11:48 Pulse 97 08/21/21 11:57 Resp 20 08/21/21 11:48 BP 108/58 08/21/21 11:48 Pulse Ox 85 L 08/21/21 11:48 FiO2 40 08/21/21 04:04 Intake & Output 08/20/21 08/21/21 08/21/21 18:59 06:59 18:59 Intake Total 420 318.25 Output Total 400 1000 Balance 20 -681.75 Weight 212.8 kg 223.4 kg Intake: IV 120 120 Furosemide 100 mg In 120 120 Sodium Chloride 0.9% 90 ml @ 15 MG/HR 15 mls/hr IV .Q6H40M N[facility] Rx#: [id number] Intake, IV Titration 300 198.25 Amount Ertapenem 0.5 gm In 50 Sodium Chloride 0.9% 50 ml @ 100 mls/hr IVPB DAILY N[facility] Rx#:[id number] Furosemide 100 mg In 200 198.25 Sodium Chloride 0.9% 90 ml @ 15 MG/HR 15 mls/hr IV .Q6H40M N[facility]AN Rx#: [id number] cefTRIAXone 1 gm In 50 Sodium Chloride 0.9% 50 ml @ 100 mls/hr IVPB Q24HR N[facility] Rx#:[id number] Output: Urine 400 1000 Other: Voiding Method Indwelling Catheter Indwelling Catheter Indwelling Catheter - Exam GENERAL EXAM: Alert, 65-year-old morbidly obese female, on 4 L nasal cannula alternating with BiPAP support currently 12/5 on 40% FiO2, comfortable in no apparent distress. HEAD: Normocephalic/atraumatic. EYES: Normal reaction of pupils, equal size. Conjunctiva pink, sclera white. NOSE: Clear with pink turbinates. THROAT: No erythema or exudates. NECK: No masses, no JVD, no thyroid enlargement, no adenopathy. CHEST: No chest wall deformity. Symmetrical expansion. LUNGS: Equal air entry with coarse crackles in the posterior bases CVS: Regular rate and rhythm, normal S1 and S2, no gallops, no murmurs, no rubs ABDOMEN: Soft, obese, nontender No hepatosplenomegaly, normal bowel sounds, no guarding or rigidity. EXTREMITIES: No clubbing, 3+ lower extremity edema no cyanosis, 2+ pulses and upper and lower extremities. MUSCULOSKELETAL: Muscle strength and tone normal. SPINE: No scoliosis or deformity SKIN: No rashes CENTRAL NERVOUS SYSTEM: No focal deficits, tone is normal in all 4 extremities. PSYCHIATRIC: Alert and oriented -3. Appropriate affect. Intact judgment and insight. - Labs CBC & Chem 7: 08/21/21 06:42 08/21/21 06:42 Labs: Abnormal Lab Results - Last 24 Hours (Table) 08/21/21 08/21/21 08/21/21 Range/Units 06:42 06:42 06:42 WBC 11.4 H (3.8-10.6) k/uL Hgb 11.2 L (11.4-16.0) gm/dL MCHC 30.0 L (31.0-37.0) g/dL RDW 16.3 H (11.5-15.5) % Neutrophils # 8.8 H (1.3-7.7) k/uL PT 14.5 H (9.0-12.0) sec INR 1.4 H (<1.2) Sodium 134 L (137-145) mmol/L Chloride 87 L (98-107) mmol/L Carbon Dioxide 39 H (22-30) mmol/L BUN 69 H (7-17) mg/dL Creatinine 2.42 H (0.52-1.04) mg/dL Microbiology - Last 24 Hours (Table) 08/18/21 09:12 Blood Culture - Preliminary Blood No Growth after 72 hours 08/18/21 Unknown Urine Culture - Preliminary Urine,Voided Gram Neg Bacilli 08/17/21 15:18 Urine Culture - Final Urine,Catheterized Escherichia coli Assessment and Plan Assessment: 1 Acute shortness of breath, acute on chronic with evidence of worsening CHF with diastolic dysfunction. Chest x-ray findings are consistent with CHF, cardiomegaly and pulmonary edema and increased lower extremity edema related to decompensated CHF. Currently on a Lasix drip at 15 mg per hour. 2 Acute on chronic hypoxic/hypercapnic respiratory failure on BiPAP alternating with nasal cannula 3 Acute kidney injury patient was oliguric, nephrology is on the case. Currently on Lasix and metolazone 4 CHF with probable biventricular diastolic heart failure with acute decompensa tion is significant volume overload 5 New onset atrial fibrillation, currently controlled with oral amiodarone and metoprolol 6 Chronic hypoxic respiratory failure 7 Morbid obesity with BMI of 73.5 kg/m 8 Chronic hypoxic and hypercapnic respiratory failure with a component of obesity hypoventilation syndrome 9 Hypertension 10 Previous history of pulmonary embolism on Coumadin 11 Hypothyroidism 12 Chronic lower extremity edema 13 Diabetes mellitus 14 Resident of a extended care facility Plan: The patient was seen and evaluated Medications, labs reviewed Remains on BiPAP support alternating with nasal cannula as tolerated Overall prognosis is guarded We will continue to follow I have personally seen and examined the patient, performed the documentation and the assessment and plan as written. Number of minutes spent on the visit: 10.
[2021-08-21] MEDS: LACTOBACILLUS ACIDOPH & BULGAR 1 EACH PACKET PO SCH (12:22)
[2021-08-21] MEDS: CHOLECALCIFEROL 25 MCG (1000 IU) TABLET PO SCH (12:22)
--- NOTE | 2021-08-21 13:15 | PN ---
PROGRESS NOTE DATE OF SERVICE: 08/21/2021 This 65-year-old woman who was admitted with atrial fibrillation had CHF also. No chest pain. No palpitations. The patient is on Lasix drip. PHYSICAL EXAMINATION: Pulse is 85, blood pressure ntd, respiration 20. HEENT: Conjunctivae normal. NECK: No jugular venous distention. CARDIOVASCULAR: S1, S2 muffled. RESPIRATION: A few scattered rhonchi. ABDOMEN: Soft. NERVOUS SYSTEM: Diffusely weak. LABS: Reviewed. Creatinine 2.42. ASSESSMENT: 1. Atrial fibrillation with a rapid ventricular rate. 2. Congestive heart failure, acute exacerbation, with preserved ejection fraction. 3. Acute urinary tract infection with Gram-negative bacilli. 4. Chronic obstructive pulmonary disease, acute exacerbation. 5. Multiple medical issues. 6. ESBL Escherichia coli. RECOMMENDATIONS AND DISCUSSION: I recommend to continue current medications, continue with the monitoring, symptomatic treatment. symptomatic treatment. Continue to monitor. Continue the Lasix drip. Prognosis guarded. PT/OT evaluation and possible ECF rehab. TORIBIO / CARIEN: [id number] / [email or web address]
[2021-08-21 16:34] LABS: Glucose,Whole Blood 100 mg/dL (75-99)
[2021-08-21] MEDS: LINAGLIPTIN 5 MG TABLET PO SCH (17:18)
[2021-08-21] MEDS: CALCIUM CARBONATE 500 MG CHEWABLE PO SCH (17:18)
[2021-08-21] MEDS: ASCORBIC ACID 500 MG TAB PO SCH (17:18)
[2021-08-21] MEDS: MULTIVITAMINS, THERA 1 EACH TAB PO SCH (17:18)
[2021-08-21] MEDS: CALCIUM CARB-VIT D 500 MG-5 MCG TAB PO SCH (17:18)
[2021-08-21] MEDS: CYANOCOBALAMIN 500 MCG TAB PO SCH (17:18)
[2021-08-21] MEDS ORDERED: WARFARIN 3 MG TAB PO ONE (18:00)
[2021-08-21] MEDS: PANTOPRAZOLE 40 MG TABLET PO SCH (19:43)
[2021-08-21] MEDS: ATORVASTATIN 20 MG TAB PO SCH (19:43)
--- NOTE | 2021-08-21 20:16 | P.PN ---
Subjective Progress Note Date: 08/20/21 Principal diagnosis: Left lateral thigh wound/rash, groin Cutaneous candidiasis Patient is a 65-year-old female with multiple comorbidities morbid obesity presented to the hospital with increasing shortness of breath patient was also noticed to have a extensive bilateral groin area Cutaneous candidiasis and also an erythematous patch to the left lateral thigh area. On today's evaluation that is 08/20/2021, the patient is afebrile, the patient is breathing comfortably and is off BiPAP, the patient denies having any chest pain, did have occasional cough, no abdominal pain no diarrhea Objective - Vital Signs Vital signs: Vital Signs Temp 97.6 F 08/20/21 03:04 Pulse 90 08/20/21 07:17 Resp 16 08/20/21 03:04 BP 114/61 08/20/21 03:04 Pulse Ox 94 L 08/20/21 07:06 FiO2 40 08/20/21 07:06 Intake & Output 08/19/21 08/20/21 08/20/21 18:59 06:59 18:59 Intake Total 752.25 153.00 100 Output Total 250 250 400 Balance 502.25 -97.00 -300 Weight 213.7 kg 212.8 kg Intake: IV 120 Furosemide 100 mg In 120 Sodium Chloride 0.9% 90 ml @ 15 MG/HR 15 mls/hr IV .Q6H40M [facility] Rx#: [id number] Intake, IV Titration 222.25 153.00 100 Amount Furosemide 100 mg In 172.25 153.00 100 Sodium Chloride 0.9% 90 ml @ 15 MG/HR 15 mls/hr IV .Q6H40M [facility] Rx#: [id number] cefTRIAXone 1 gm In 50 Sodium Chloride 0.9% 50 ml @ 100 mls/hr IVPB Q24HR [facility] Rx#:[id number] Oral 410 Output: Urine 250 250 400 Other: Voiding Method Indwelling Catheter Indwelling Catheter # Bowel Movements 1 - Exam GENERAL DESCRIPTION: An elderlyfemale lying in bed in no distress RESPIRATORY SYSTEM: Unlabored breathing , decreased breath sounds at bases HEART: S1 S2 regular rate and rhythm , ABDOMEN: Soft , no tenderness EXTREMITIES: Diffuse swelling bilateral lower extremity with an erythematous patch to left lateral thigh - Labs CBC & Chem 7: 08/21/21 06:42 08/21/21 06:42 Labs: Abnormal Lab Results - Last 24 Hours (Table) 08/19/21 08/19/21 08/20/21 Range/Units 11:32 20:28 06:22 WBC (3.8-10.6) k/uL MCHC (31.0-37.0) g/dL RDW (11.5-15.5) % Neutrophils # (1.3-7.7) k/uL PT (9.0-12.0) sec INR (<1.2) Sodium (137-145) mmol/L Chloride (98-107) mmol/L Carbon Dioxide (22-30) mmol/L BUN (7-17) mg/dL Creatinine (0.52-1.04) mg/dL POC Glucose (mg/dL) 113 H 121 H 105 H (75-99) mg/dL Albumin (3.5-5.0) g/dL 08/20/21 08/20/21 08/20/21 Range/Units 08:58 08:58 08:58 WBC 12.7 H (3.8-10.6) k/uL MCHC 29.9 L (31.0-37.0) g/dL RDW 16.4 H (11.5-15.5) % Neutrophils # 10.4 H (1.3-7.7) k/uL PT 13.2 H (9.0-12.0) sec INR 1.3 H (<1.2) Sodium 135 L (137-145) mmol/L Chloride 86 L (98-107) mmol/L Carbon Dioxide 36 H (22-30) mmol/L BUN 67 H (7-17) mg/dL Creatinine 2.29 H (0.52-1.04) mg/dL POC Glucose (mg/dL) (75-99) mg/dL Albumin 3.4 L (3.5-5.0) g/dL Microbiology - Last 24 Hours (Table) 08/17/21 15:18 Urine Culture - Final Urine,Catheterized Escherichia coli 08/18/21 09:12 Blood Culture - Preliminary Blood No Growth after 24 hours Assessment and Plan (1) Non-healing skin lesion Current Visit: No Status: Acute Code(s): L98.9 - DISORDER OF THE SKIN AND SUBCUTANEOUS TISSUE, UNSPECIFIED SNOMED Code(s): 97980264 Plan: 1patient with left lateral thigh wound with no evidence of any cellulitis and oozing could be related to the fluid overload state, patient to continue with the Mycolog cream applied twice a day. 2 Patient with bilateral groin area cutaneous candidiasis but no evidence of secondary cellulitis to continue continue with nystatin powder twice a day. 3-patient did have leukocytosis chest x-rays mostly bilateral diffuse infiltrate, CRP and procalcitonin mildly elevated, urine has been finalized ESBL E. coli discontinue Rocephin and start the patient on Invanz 500 mg daily dose adjusted to the kidney function Time with Patient: Less than 30
--- NOTE | 2021-08-21 20:18 | P.PN ---
Subjective Progress Note Date: 08/21/21 Principal diagnosis: Left lateral thigh wound/rash, groin Cutaneous candidiasis Patient is a 65-year-old female with multiple comorbidities morbid obesity presented to the hospital with increasing shortness of breath patient was also noticed to have a extensive bilateral groin area Cutaneous candidiasis and also an erythematous patch to the left lateral thigh area. On today's evaluation that is 08/21/2021, the patient denies any fever or chills, the patient is breathing comfortably on RA, the patient denies having any chest pain, did have occasional cough, no abdominal pain no diarrhea Objective - Vital Signs Vital signs: Vital Signs Temp 98.1 F 08/21/21 15:43 Pulse 96 08/21/21 15:43 Resp 20 08/21/21 15:43 BP 126/58 08/21/21 15:43 Pulse Ox 94 L 08/21/21 15:43 FiO2 40 08/21/21 04:04 Intake & Output 08/20/21 08/21/21 08/21/21 18:59 06:59 18:59 Intake Total 420 318.25 100 Output Total 400 1000 850 Balance 20 -681.75 -750 Weight 212.8 kg 223.4 kg Intake: IV 120 120 Furosemide 100 mg In 120 120 Sodium Chloride 0.9% 90 ml @ 15 MG/HR 15 mls/hr IV .Q6H40M [facility] Rx#: [id number] Intake, IV Titration 300 198.25 100 Amount Ertapenem 0.5 gm In 50 Sodium Chloride 0.9% 50 ml @ 100 mls/hr IVPB DAILY [facility] Rx#:[id number] Furosemide 100 mg In 200 198.25 100 Sodium Chloride 0.9% 90 ml @ 15 MG/HR 15 mls/hr IV .Q6H40M [facility] Rx#: [id number] cefTRIAXone 1 gm In 50 Sodium Chloride 0.9% 50 ml @ 100 mls/hr IVPB Q24HR [facility] Rx#:[id number] Output: Urine 400 1000 850 Uretheral (Claros) 425 Other: Voiding Method Indwelling Catheter Indwelling Catheter Indwelling Catheter - Exam GENERAL DESCRIPTION: An elderlyfemale lying in bed in no distress RESPIRATORY SYSTEM: Unlabored breathing , decreased breath sounds at bases HEART: S1 S2 regular rate and rhythm , ABDOMEN: Soft , no tenderness EXTREMITIES: Diffuse swelling bilateral lower extremity with an erythematous patch to left lateral thigh - Labs CBC & Chem 7: 08/21/21 06:42 08/21/21 06:42 Labs: Abnormal Lab Results - Last 24 Hours (Table) 08/21/21 08/21/21 08/21/21 Range/Units 06:42 06:42 06:42 WBC 11.4 H (3.8-10.6) k/uL Hgb 11.2 L (11.4-16.0) gm/dL MCHC 30.0 L (31.0-37.0) g/dL RDW 16.3 H (11.5-15.5) % Neutrophils # 8.8 H (1.3-7.7) k/uL PT 14.5 H (9.0-12.0) sec INR 1.4 H (<1.2) Sodium 134 L (137-145) mmol/L Chloride 87 L (98-107) mmol/L Carbon Dioxide 39 H (22-30) mmol/L BUN 69 H (7-17) mg/dL Creatinine 2.42 H (0.52-1.04) mg/dL Microbiology - Last 24 Hours (Table) 08/18/21 09:12 Blood Culture - Preliminary Blood No Growth after 72 hours 08/18/21 Unknown Urine Culture - Preliminary Urine,Voided Gram Neg Bacilli 08/17/21 15:18 Urine Culture - Final Urine,Catheterized Escherichia coli Assessment and Plan (1) Non-healing skin lesion Current Visit: No Status: Acute Code(s): L98.9 - DISORDER OF THE SKIN AND SUBCUTANEOUS TISSUE, UNSPECIFIED SNOMED Code(s): 89085838 Plan: 1patient with left lateral thigh wound with no evidence of any cellulitis and oozing could be related to the fluid overload state, patient to continue with the Mycolog cream applied twice a day. 2 Patient with bilateral groin area cutaneous candidiasis but no evidence of secondary cellulitis to continue continue with nystatin powder twice a day. 3-patient did have leukocytosis chest x-rays mostly bilateral diffuse infiltrate, CRP and procalcitonin mildly elevated 4- urine has been finalized ESBL E. coli , patient to continue with Invanz 500 mg daily and monitor clinical course closely Time with Patient: Less than 30
[2021-08-21 20:20] LABS: Glucose,Whole Blood 141 mg/dL (75-99)
[2021-08-22] MEDS: INSULIN ASPART (NovoLOG) 100 UNIT/ML VIAL SQ SCH ×5 (03:07→21:25)
[2021-08-22 05:47] LABS: INR 1.6 (<1.2); Prothrombin Time 16.3 sec (9.0-12.0)
[2021-08-22 05:51] LABS: Calcium 8.9 mg/dL (8.4-10.2); Potassium 3.7 mmol/L (3.5-5.1)
[2021-08-22 05:59] LABS: Glucose,Whole Blood 105 mg/dL (75-99)
[2021-08-22] MEDS: MIDODRINE 5 MG TAB PO SCH ×3 (06:39→17:24)
[2021-08-22] MEDS: IPRATROPIUM-ALBUTEROL 3 ML NEB INHALATION SCH ×3 (07:13→19:58)
[2021-08-22] MEDS: FOLIC ACID 1 MG TAB PO SCH (09:03)
[2021-08-22] MEDS: FERROUS SULFATE 325 MG TAB PO SCH ×2 (09:03→17:24)
[2021-08-22] MEDS: ERTAPENEM 0.5 GM in SODIUM CHLORIDE 0.9% 50 ML IVPB SCH (09:03)
[2021-08-22] MEDS: METOPROLOL TARTRATE 50 MG TAB PO SCH ×3 (09:04→21:24)
[2021-08-22] MEDS: ESCITALOPRAM 20 MG TAB PO SCH (09:04)
[2021-08-22] MEDS: LEVOTHYROXINE 88 MCG TAB PO SCH (09:04)
[2021-08-22] MEDS: DOCUSATE 100 MG CAP PO SCH (09:04)
[2021-08-22] MEDS: MEGESTROL 40 MG TAB PO SCH (09:05)
[2021-08-22] MEDS: metOLazone 5 MG TAB PO SCH ×2 (09:05→21:24)
[2021-08-22] MEDS: NYSTATIN 100,000UNIT/GM CREAM 30 GM TUBE TOPICAL SCH ×2 (09:05→21:25)
[2021-08-22] MEDS: NYSTATIN 100,000 UNIT/GM POWD 15 GM TOPICAL SCH ×2 (09:05→21:24)
[2021-08-22] MEDS: TRIAMCINOLONE 0.1% CREAM 80 GM TUBE TOPICAL SCH ×2 (09:06→21:25)
[2021-08-22] MEDS ORDERED: POTASSIUM CHLORIDE ER 20 MEQ TAB.ER PO STA (09:36)
--- NOTE | 2021-08-22 09:36 | P.PN ---
Subjective Patient is seen in follow-up for acute kidney injury. Renal function stable. Creatinine 2.33 today. Urine output improved. Maintained on Lasix drip and metolazone. Oral intake fair. Denies vomiting or diarrhea. Hemodynamically stable. No chest pain or shortness of breath. On 4 L nasal cannula. No changes overnight. Vital signs stable. General: No acute distress. HEENT: Head exam is unremarkable. On nasal cannula. LUNGS: Breath sounds decreased. HEART: Rate and Rhythm are regular. ABDOMEN: Soft, obese. EXTREMITITES: 2+ edema. Objective - Vital Signs Vital signs: Vital Signs Temp 97.4 F L 08/22/21 03:19 Pulse 90 08/22/21 07:34 Resp 17 08/22/21 03:19 BP 116/62 08/22/21 03:19 Pulse Ox 95 08/22/21 07:12 FiO2 40 08/22/21 03:19 Intake & Output 08/21/21 08/22/21 08/22/21 18:59 06:59 18:59 Intake Total 1157 220 Output Total 1200 550 Balance -43 -330 Weight 223.4 kg Intake: IV 200 120 .9 80 Furosemide 100 mg In 120 120 Sodium Chloride 0.9% 90 ml @ 15 MG/HR 15 mls/hr IV .Q6H40M [facility] Rx#: [id number] Intake, IV Titration 150 100 Amount Ertapenem 0.5 gm In 50 Sodium Chloride 0.9% 50 ml @ 100 mls/hr IVPB DAILY [facility] Rx#:[id number] Furosemide 100 mg In 100 100 Sodium Chloride 0.9% 90 ml @ 15 MG/HR 15 mls/hr IV .Q6H40M [facility] Rx#: [id number] Oral 807 Output: Urine 1200 550 Uretheral (Claros) 425 Other: Voiding Method Indwelling Catheter Indwelling Catheter - Labs CBC & Chem 7: 08/21/21 06:42 08/22/21 04:57 Labs: Abnormal Lab Results - Last 24 Hours (Table) 08/21/21 08/21/21 08/22/21 Range/Units 16:33 19:55 04:47 PT 16.3 H (9.0-12.0) sec INR 1.6 H (<1.2) Sodium (137-145) mmol/L Chloride (98-107) mmol/L Carbon Dioxide (22-30) mmol/L BUN (7-17) mg/dL Creatinine (0.52-1.04) mg/dL POC Glucose (mg/dL) 100 H 141 H (75-99) mg/dL 08/22/21 08/22/21 Range/Units 04:57 05:58 PT (9.0-12.0) sec INR (<1.2) Sodium 133 L (137-145) mmol/L Chloride 86 L (98-107) mmol/L Carbon Dioxide 40 H (22-30) mmol/L BUN 74 H (7-17) mg/dL Creatinine 2.33 H (0.52-1.04) mg/dL POC Glucose (mg/dL) 105 H (75-99) mg/dL Microbiology - Last 24 Hours (Table) 08/18/21 Unknown Urine Culture - Final Urine,Voided Escherichia coli Enterococcus faecalis 08/18/21 09:12 Blood Culture - Preliminary Blood No Growth after 72 hours Assessment and Plan Plan: Assessment: 1. Acute kidney injury secondary to ATN secondary to cardiorenal syndrome and infection. Baseline creatinine near 1 and is stable at 2.33 today. Nonoliguric. No proteinuria on UA done 08/18/2021. No hydronephrosis noted on kidney ultrasound. 2. Acute on chronic systolic CHF with ejection fraction of 40-45%. 3. Volume overload. 4. E. coli and enterococcus UTI on antibiotics. 5. Diabetes mellitus. 6. A. fib with RVR maintained on metoprolol and Coumadin. Cardiology following. 7. Acute on chronic hypoxic and hypercapnic respiratory failure. 8. Morbid obesity. Plan: Maintain Lasix drip and metolazone. Low-salt diet and 1500 mL fluid restriction. Avoid nephrotoxins. Continue to monitor renal function and urine output. Continue to assess daily for need for renal replacement therapy. Urine output better. No urgency at this time.
[2021-08-22 11:50] LABS: Glucose,Whole Blood 145 mg/dL (75-99)
[2021-08-22] MEDS: LACTOBACILLUS ACIDOPH & BULGAR 1 EACH PACKET PO SCH (12:37)
[2021-08-22] MEDS: CHOLECALCIFEROL 25 MCG (1000 IU) TABLET PO SCH (12:37)
[2021-08-22] MEDS: FUROSEMIDE 100 MG in SODIUM CHLORIDE 0.9% 90 ML IV SCH ×4 (12:39→23:54)
--- NOTE | 2021-08-22 13:47 | P.PN ---
Subjective Progress Note Date: 08/22/21 On 08/17/2021 patient seen in follow-up on selective care unit. She is awake and alert, in no acute distress, she has been wearing BiPAP intermittently, she is currently on nasal cannula, patient remains on IV Lasix at 50 mg/h. However her urine output has been very minimal, and patient still has significant generalized edema and significant lower extremity edema. Renal function continues to worsen and on today's labs BUN is 56, and creatinine is 2.05. Sodium is 134, potassium is 4.3. Urinalysis showed evidence of acute urinary tract infection. White blood cell count has increased and is up to 16.2, hemoglobin is 10.7. INR is 4.5. No nausea or vomiting, although her appetite is poor. No Complains of chest discomfort. No coughing or wheezing, no fever or chills. On 08/18/2021 patient seen in follow-up on selective care unit, she is awake, answering questions appropriately, she did wear BiPAP support pressures of 12 and 4, and FiO2 40% overnight, she is currently on 4 L of oxygen pulse ox is 93%, she is afebrile, blood pressure is been stable. She remains on Lasix infusion at 15 mg per hour, she is only in -48 cc negative fluid balance over the last 24 hours, she has produced 575 ML of urine, and remains significantly fluid overloaded with anasarca, significant peripheral edema. Chest x-ray today showed diffuse pleural parenchymal changes that are stable in appearance related to CHF. Today's labs have been reviewed, INR is 5.9, sodium is 133, potassium is 4.4, chloride is 88, CO2 is stable at 36, renal function continues to slightly worsen, and BUN is 57, creatinine is 2.22. Urinalysis showed evidence of urinary tract infection, urine culture is currently pending. On 08/19/2021 patient is seen in follow-up on selective care unit. He remains on Lasix drip at 15 mg per hour, however her urine output remains poor, and she is actually in 925 ML positive net fluid balance over the last 24 hours. We requested nursing staff to obtain a current weight, the patient is positive at 19.6 kilos since admission. She is significantly fluid overloaded with anasarca, and severe pitting edema of bilateral lower extremities, abdomen, thighs. Today's labs have been reviewed, showing white blood cell count of 15.6, hemoglobin of 11.2, she received vitamin K for INR of 5.9 yesterday, INR is currently down to 1.4, Coumadin remains on hold, pharmacy is dosing, sodium is 132, potassium is 4.3, chloride is 87, CO2 is 38, BUN is 60, creatinine is 2.29, pro calcitonin level is 0.30, urinalysis showed evidence of urinary tract infection, we will empirically place the patient on Rocephin, and urine culture has been sent., Currently showing gram-negative bacilli, final culture is pending The patient is seen today 08/20/2021 in follow-up on the selective care unit. S he is currently resting in bed. On BiPAP 12/5 on 40% FiO2. She remains on Lasix drip at 15 mg per hour. Remains in a +1 L balance. Weight 212.8 kg. Urine culture positive for E. coli. Blood culture pending. Follow-up urine culture pending. White count 12.7. Hemoglobin 11.5. Platelets 386. INR 1.3. Sodium 135. Potassium 4.3. BUN 67. Creatinine 2.29. Glucose 97. AST 30. ALT 13. She is currently on ertapenem. Continued on bronchodilators. Warfarin dosed per pharmacy. The patient is seen today 08/21/2021 in follow-up on the selective care unit. She is currently awake and alert in no acute distress. Resting comfortably in bed. Maintaining O2 saturations in the 90s on 4 L/m per nasal cannula. She had been alternating with BiPAP 12/5 and 40% FiO2. She is currently afebrile. Hemodynamically stable. She remains on a Lasix drip at 15 mg per hour. Current weight 212.8 kg. Still in a positive balance. Urine culture positive for E. coli. Blood culture revealed no growth. White count 11.4. Hemoglobin 11.2. Platelets 372. INR 1.4. Sodium 134. Potassium 3.8. BUN 69. Creatinine 2.42. She is continued on antibiotics in the form of ertapenem. Warfarin dosing per pharmacy. Patient is seen today 08/22/2021 in follow-up on the selective care unit. She is currently resting in bed. Awake and alert in no acute distress. She is still on a Lasix drip at 15 mg per hour. Normal saline at 10 MLS per hour. She is currently on 4 L nasal cannula with O2 saturations in the low 90s. She alternates with BiPAP 12/5 and 40% FiO2. Urine culture is positive for E. coli and enterococcus faecalis. INR 1.6. Sodium 136 3. Potassium 3.7. BUN 74. Creatinine 2.33. She is currently in a -661 balance. She's been afebrile. Hemodynamically stable. She is continued on DuoNeb inhalations. Antibiotics in the form of ertapenem. Anticoagulated with warfarin. Objective - Vital Signs Vital signs: Vital Signs Temp 97.7 F 08/22/21 12:00 Pulse 98 08/22/21 12:12 Resp 18 08/22/21 12:00 BP 120/62 08/22/21 12:00 Pulse Ox 96 08/22/21 12:00 FiO2 40 08/22/21 03:19 Intake & Output 08/21/21 08/22/21 08/22/21 18:59 06:59 18:59 Intake Total 1157 220 580 Output Total 1597 508 2526 Balance -43 -330 -720 Weight 223.4 kg Intake: IV 200 120 .9 80 Furosemide 100 mg In 120 120 Sodium Chloride 0.9% 90 ml @ 15 MG/HR 15 mls/hr IV .Q6H40M NOLAN Rx#: [id number] Intake, IV Titration 150 100 100 Amount Ertapenem 0.5 gm In 50 Sodium Chloride 0.9% 50 ml @ 100 mls/hr IVPB DAILY [facility] Rx#:[id number] Furosemide 100 mg In 100 100 100 Sodium Chloride 0.9% 90 ml @ 15 MG/HR 15 mls/hr IV .Q6H40M [facility] Rx#: [id number] Oral 807 480 Output: Urine 1230 764 [id number] Uretheral (Claros) 425 650 Other: Voiding Method Indwelling Catheter Indwelling Catheter Indwelling Catheter - Exam GENERAL EXAM: Alert, 65-year-old morbidly obese female, on 4 L nasal cannula alternating with BiPAP support currently 12/5 on 40% FiO2, comfortable in no apparent distress. HEAD: Normocephalic/atraumatic. EYES: Normal reaction of pupils, equal size. Conjunctiva pink, sclera white. NOSE: Clear with pink turbinates. THROAT: No erythema or exudates. NECK: No masses, no JVD, no thyroid enlargement, no adenopathy. CHEST: No chest wall deformity. Symmetrical expansion. LUNGS: Equal air entry with coarse crackles in the posterior bases CVS: Regular rate and rhythm, normal S1 and S2, no gallops, no murmurs, no rubs ABDOMEN: Soft, obese, nontender No hepatosplenomegaly, normal bowel sounds, no guarding or rigidity. EXTREMITIES: No clubbing, 3+ lower extremity edema no cyanosis, 2+ pulses and upper and lower extremities. MUSCULOSKELETAL: Muscle strength and tone normal. SPINE: No scoliosis or deformity SKIN: No rashes CENTRAL NERVOUS SYSTEM: No focal deficits, tone is normal in all 4 extremities. PSYCHIATRIC: Alert and oriented -3. Appropriate affect. Intact judgment and insight. - Labs CBC & Chem 7: 08/21/21 06:42 08/22/21 04:57 Labs: Abnormal Lab Results - Last 24 Hours (Table) 08/21/21 08/21/21 08/22/21 Range/Units 16:33 19:55 04:47 PT 16.3 H (9.0-12.0) sec INR 1.6 H (<1.2) Sodium (137-145) mmol/L Chloride (98-107) mmol/L Carbon Dioxide (22-30) mmol/L BUN (7-17) mg/dL Creatinine (0.52-1.04) mg/dL POC Glucose (mg/dL) 100 H 141 H (75-99) mg/dL 08/22/21 08/22/21 08/22/21 Range/Units 04:57 05:58 11:49 PT (9.0-12.0) sec INR (<1.2) Sodium 133 L (137-145) mmol/L Chloride 86 L (98-107) mmol/L Carbon Dioxide 40 H (22-30) mmol/L BUN 74 H (7-17) mg/dL Creatinine 2.33 H (0.52-1.04) mg/dL POC Glucose (mg/dL) 105 H 145 H (75-99) mg/dL Microbiology - Last 24 Hours (Table) 08/18/21 09:12 Blood Culture - Preliminary Blood No Growth after 96 hours 08/18/21 Unknown Urine Culture - Final Urine,Voided Escherichia coli Enterococcus faecalis Assessment and Plan Assessment: Acute on chronic CHF with diastolic dysfunction. Chest x-ray findings are consistent with CHF, cardiomegaly and pulmonary edema and increased lower extremity edema related to decompensated CHF. Currently on a Lasix drip at 15 mg per hour. Acute on chronic hypoxic/hypercapnic respiratory failure on BiPAP alternating with nasal cannula Acute kidney injury, patient was oliguric, nephrology is on the case. Currently on Lasix and metolazone and increased urine output CHF with probable biventricular diastolic heart failure with acute decompensation is significant volume overload New onset atrial fibrillation, currently controlled with oral amiodarone and metoprolol Chronic hypoxic respiratory failure Morbid obesity with BMI of 73.5 kg/m Chronic hypoxic and hypercapnic respiratory failure with a component of obesity hypoventilation syndrome Hypertension Previous history of pulmonary embolism on Coumadin Hypothyroidism Chronic lower extremity edema Diabetes mellitus Resident of a extended care facility Plan: The patient was seen and evaluated Medications, labs reviewed Remains on BiPAP support alternating with nasal cannula Continued on a Lasix drip Follow-up chest x-ray in a.m. We will continue to follow I have personally seen and examined the patient, performed the documentation and the assessment and plan as written. Number of minutes spent on the visit: 10.
--- NOTE | 2021-08-22 14:39 | PN ---
PROGRESS NOTE DATE OF SERVICE: 08/22/2021 This 65-year-old woman who was admitted with atrial fibrillation with rapid ventricular rate also has features of CHF. The patient is on Lasix drip. No chest pain. No palpitations. Short of breath, using BiPAP. PHYSICAL EXAMINATION: Pulse is 99, blood pressure 120/62, respirations 18. HEENT: Conjunctivae are normal. Neck is obese. Cardiovascular systems: S1, S2. Respirations: Breath sounds diminished. Few scattered rhonchi. Abdomen: Soft, obese. Legs: Bilateral leg edema. Nervous system: No focal deficits. LABS: Creatinine 2.3. Other labs are noted. ASSESSMENT: 1. Atrial fibrillation with rapid ventricular rate. 2. Congestive heart failure, acute exacerbation with preserved ejection fraction. 3. Acute urinary tract infection with Escherichia coli and Enterococcus faecalis. Final ID pending, ESBL E coli. 4. Chronic obstructive pulmonary disease. 5. Multiple medical issues. RECOMMENDATIONS AND DISCUSSION: Recommend to continue current medications, management and symptomatic treatment. Continue the antibiotics. Continue with the IV Lasix. Guarded prognosis. The patient is on ertapenem. Further recommendations to follow. MMODL / IJN: [id number] /
[2021-08-22 16:20] LABS: Glucose,Whole Blood 121 mg/dL (75-99)
[2021-08-22] MEDS: LINAGLIPTIN 5 MG TABLET PO SCH (17:24)
[2021-08-22] MEDS: CYANOCOBALAMIN 500 MCG TAB PO SCH (17:24)
[2021-08-22] MEDS: MULTIVITAMINS, THERA 1 EACH TAB PO SCH (17:24)
[2021-08-22] MEDS: ASCORBIC ACID 500 MG TAB PO SCH (17:24)
[2021-08-22] MEDS: CALCIUM CARB-VIT D 500 MG-5 MCG TAB PO SCH (17:24)
[2021-08-22] MEDS: CALCIUM CARBONATE 500 MG CHEWABLE PO SCH (17:24)
[2021-08-22] MEDS ORDERED: WARFARIN 3 MG TAB PO ONE (18:00)
[2021-08-22 20:27] LABS: Glucose,Whole Blood 125 mg/dL (75-99)
[2021-08-22] MEDS: ATORVASTATIN 20 MG TAB PO SCH (21:24)
[2021-08-22] MEDS: PANTOPRAZOLE 40 MG TABLET PO SCH (21:24)
[2021-08-23 06:13] LABS: Glucose,Whole Blood 112 mg/dL (75-99)
[2021-08-23] MEDS: FUROSEMIDE 100 MG in SODIUM CHLORIDE 0.9% 90 ML IV SCH ×3 (06:20→19:16)
[2021-08-23] MEDS: INSULIN ASPART (NovoLOG) 100 UNIT/ML VIAL SQ SCH ×4 (06:24→21:06)
[2021-08-23] MEDS: MIDODRINE 5 MG TAB PO SCH ×3 (06:26→21:05)
[2021-08-23] MEDS: IPRATROPIUM-ALBUTEROL 3 ML NEB INHALATION SCH ×3 (07:15→20:56)
--- NOTE | 2021-08-23 07:29 | XR ---
EXAMINATION TYPE: XR chest 1V portable DATE OF EXAM: 08/23/2021 Comparison: 08/18/2021 Clinical History: 66-year-old female CHF Findings: The heart remains mildly enlarged. Diffuse interstitial and patchy opacities. Dense retrocardiac and left mid and lower lung opacities persist. Impression: 1. Similar cardiomegaly with diffuse interstitial and patchy opacities, possible patchy pulmonary marcus ma. 2. Extensive opacity left mid and lower lung persists, likely combination of moderate pleural effusio n with adjacent atelectasis and/or consolidation.
--- NOTE | 2021-08-23 08:02 | P.PN ---
Subjective Progress Note Date: 08/22/21 Principal diagnosis: Left lateral thigh wound/rash, groin Cutaneous candidiasis Patient is a 65-year-old female with multiple comorbidities morbid obesity presented to the hospital with increasing shortness of breath patient was also noticed to have a extensive bilateral groin area Cutaneous candidiasis and also an erythematous patch to the left lateral thigh area. On today's evaluation that is 08/22/2021, the patient remains to be afebrile, the patient is breathing comfortably on nasal cannula oxygen, the patient denies having any chest pain, did have occasional cough, no abdominal pain no diarrhea Objective - Vital Signs Vital signs: Vital Signs Temp 97.7 F 08/22/21 12:00 Pulse 98 08/22/21 12:12 Resp 18 08/22/21 12:00 BP 120/62 08/22/21 12:00 Pulse Ox 96 08/22/21 12:00 FiO2 40 08/22/21 03:19 Intake & Output 08/21/21 08/22/21 08/22/21 18:59 06:59 18:59 Intake Total 6629 055 3345 Output Total 3379 383 3489 Balance -43 -330 -240 Weight 223.4 kg Intake: IV 200 120 .9 80 Furosemide 100 mg In 120 120 Sodium Chloride 0.9% 90 ml @ 15 MG/HR 15 mls/hr IV .Q6H40M [facility] Rx#: [id number] Intake, IV Titration 150 100 100 Amount Ertapenem 0.5 gm In 50 Sodium Chloride 0.9% 50 ml @ 100 mls/hr IVPB DAILY [facility] Rx#:[id number] Furosemide 100 mg In 100 100 100 Sodium Chloride 0.9% 90 ml @ 15 MG/HR 15 mls/hr IV .Q6H40M [facility] Rx#: [id number] Oral 807 960 Output: Urine 4236 607 [id number] Uretheral (Claros) 425 650 Other: Voiding Method Indwelling Catheter Indwelling Catheter Indwelling Catheter - Exam GENERAL DESCRIPTION: An elderlyfemale lying in bed in no distress RESPIRATORY SYSTEM: Unlabored breathing , decreased breath sounds at bases HEART: S1 S2 regular rate and rhythm , ABDOMEN: Soft , no tenderness EXTREMITIES: Diffuse swelling bilateral lower extremity with an erythematous patch to left lateral thigh - Labs CBC & Chem 7: 08/21/21 06:42 08/22/21 04:57 Labs: Abnormal Lab Results - Last 24 Hours (Table) 08/21/21 08/21/21 08/22/21 Range/Units 16:33 19:55 04:47 PT 16.3 H (9.0-12.0) sec INR 1.6 H (<1.2) Sodium (137-145) mmol/L Chloride (98-107) mmol/L Carbon Dioxide (22-30) mmol/L BUN (7-17) mg/dL Creatinine (0.52-1.04) mg/dL POC Glucose (mg/dL) 100 H 141 H (75-99) mg/dL 08/22/21 08/22/21 08/22/21 Range/Units 04:57 05:58 11:49 PT (9.0-12.0) sec INR (<1.2) Sodium 133 L (137-145) mmol/L Chloride 86 L (98-107) mmol/L Carbon Dioxide 40 H (22-30) mmol/L BUN 74 H (7-17) mg/dL Creatinine 2.33 H (0.52-1.04) mg/dL POC Glucose (mg/dL) 105 H 145 H (75-99) mg/dL Microbiology - Last 24 Hours (Table) 08/18/21 09:12 Blood Culture - Preliminary Blood No Growth after 96 hours 08/18/21 Unknown Urine Culture - Final Urine,Voided Escherichia coli Enterococcus faecalis Assessment and Plan (1) Non-healing skin lesion Current Visit: No Status: Acute Code(s): L98.9 - DISORDER OF THE SKIN AND SUBCUTANEOUS TISSUE, UNSPECIFIED SNOMED Code(s): 21931570 Plan: 1patient with left lateral thigh wound with no evidence of any cellulitis and oozing could be related to the fluid overload state, patient to continue with the Mycolog cream applied twice a day. 2 Patient with bilateral groin area cutaneous candidiasis but no evidence of secondary cellulitis to continue continue with nystatin powder twice a day. 3-patient did have leukocytosis chest x-rays mostly bilateral diffuse infiltrate, CRP and procalcitonin mildly elevated 4- urine has been finalized ESBL E. coli , patient repeat urine is now showing ESBL and enterococcus, patient to continue with Invanz 500 mg daily and monitor clinical course closely Time with Patient: Less than 30
[2021-08-23] MEDS: NYSTATIN 100,000UNIT/GM CREAM 30 GM TUBE TOPICAL SCH ×2 (09:34→21:11)
[2021-08-23] MEDS: ERTAPENEM 0.5 GM in SODIUM CHLORIDE 0.9% 50 ML IVPB SCH (09:34)
[2021-08-23] MEDS: TRIAMCINOLONE 0.1% CREAM 80 GM TUBE TOPICAL SCH ×2 (09:34→21:11)
[2021-08-23] MEDS: LEVOTHYROXINE 88 MCG TAB PO SCH (09:35)
[2021-08-23] MEDS: MEGESTROL 40 MG TAB PO SCH (09:35)
[2021-08-23] MEDS: DOCUSATE 100 MG CAP PO SCH (09:35)
[2021-08-23] MEDS: METOPROLOL TARTRATE 50 MG TAB PO SCH ×3 (09:35→21:11)
[2021-08-23] MEDS: FERROUS SULFATE 325 MG TAB PO SCH ×2 (09:35→17:10)
[2021-08-23] MEDS: ESCITALOPRAM 20 MG TAB PO SCH (09:35)
[2021-08-23] MEDS: FOLIC ACID 1 MG TAB PO SCH (09:35)
[2021-08-23] MEDS: metOLazone 5 MG TAB PO SCH ×2 (09:36→21:11)
[2021-08-23] MEDS: NYSTATIN 100,000 UNIT/GM POWD 15 GM TOPICAL SCH ×2 (09:36→21:11)
--- NOTE | 2021-08-23 09:55 | P.PN ---
Subjective Patient is seen in follow-up for acute kidney injury. Morning labs pending. Urine output 2.5 L in the last 24 hours. Maintained on Lasix drip and metolazone. Oral intake fair. Denies vomiting or diarrhea. Hemodynamically stable. No chest pain or shortness of breath. On 4 L nasal cannula. No changes overnight. Vital signs stable. General: No acute distress. HEENT: Head exam is unremarkable. On nasal cannula. LUNGS: Breath sounds decreased. HEART: Rate and Rhythm are regular. ABDOMEN: Soft, obese. EXTREMITITES: 2+ edema. Objective - Vital Signs Vital signs: Vital Signs Temp 97.6 F 08/23/21 09:17 Pulse 92 08/23/21 09:19 Resp 18 08/23/21 09:19 BP 95/66 08/23/21 09:17 Pulse Ox 94 L 08/23/21 09:17 FiO2 40 08/23/21 07:15 Intake & Output 08/22/21 08/23/21 08/23/21 18:59 06:59 18:59 Intake Total 1607.75 493.0 120 Output Total 1525 975 Balance 82.75 -482.0 120 Weight 219.7 kg Intake: IV 200 300 .9 80 120 Furosemide 100 mg In 120 180 Sodium Chloride 0.9% 90 ml @ 15 MG/HR 15 mls/hr IV .Q6H40M [facility] Rx#: [id number] Intake, IV Titration 207.75 193.0 Amount Ertapenem 0.5 gm In 50 Sodium Chloride 0.9% 50 ml @ 100 mls/hr IVPB DAILY [facility] Rx#:[id number] Furosemide 100 mg In 157.75 193.0 Sodium Chloride 0.9% 90 ml @ 15 MG/HR 15 mls/hr IV .Q6H40M [facility] Rx#: [id number] Oral 1200 0 120 Output: Urine 1525 975 Uretheral (Claros) 650 975 Other: Voiding Method Indwelling Catheter Indwelling Catheter Indwelling Catheter - Labs CBC & Chem 7: 08/21/21 06:42 08/22/21 04:57 Labs: Abnormal Lab Results - Last 24 Hours (Table) 08/22/21 08/22/21 08/22/21 Range/Units 11:49 16:18 20:25 POC Glucose (mg/dL) 145 H 121 H 125 H (75-99) mg/dL 08/23/21 Range/Units 06:09 POC Glucose (mg/dL) 112 H (75-99) mg/dL Microbiology - Last 24 Hours (Table) 08/18/21 09:12 Blood Culture - Preliminary Blood No Growth after 96 hours Assessment and Plan Plan: Assessment: 1. Acute kidney injury secondary to ATN secondary to cardiorenal syndrome and infection. Baseline creatinine near 1 and is stable at 2.33 yesterday. Nonoliguric. No proteinuria on UA done 08/18/2021. No hydronephrosis noted on kidney ultrasound. 2. Acute on chronic systolic CHF with ejection fraction of 40-45%. 3. Volume overload. 4. E. coli and enterococcus UTI on antibiotics. 5. Diabetes mellitus. 6. A. fib with RVR maintained on metoprolol and Coumadin. Cardiology following. 7. Acute on chronic hypoxic and hypercapnic respiratory failure. 8. Morbid obesity. Plan: Maintain Lasix drip and metolazone. Low-salt diet and 1500 mL fluid restriction. Avoid nephrotoxins. Continue to monitor renal function and urine output. Continue to assess daily for need for renal replacement therapy. Urine output continues to improve. No urgency at this time. Follow-up morning labs. Increase dose of midodrine. Hold for systolic blood pressure above 110.
[2021-08-23 09:58] LABS: INR 1.6 (<1.2); Prothrombin Time 16.1 sec (9.0-12.0)
[2021-08-23 10:30] LABS: Calcium 8.7 mg/dL (8.4-10.2); Potassium 3.6 mmol/L (3.5-5.1)
[2021-08-23 11:46] LABS: Glucose,Whole Blood 125 mg/dL (75-99)
[2021-08-23] MEDS: LACTOBACILLUS ACIDOPH & BULGAR 1 EACH PACKET PO SCH (11:53)
[2021-08-23] MEDS: CHOLECALCIFEROL 25 MCG (1000 IU) TABLET PO SCH (11:53)
[2021-08-23] MEDS ORDERED: ALPRAZolam 0.25 MG TAB PO STA (11:57)
--- NOTE | 2021-08-23 13:15 | P.PN ---
Subjective Progress Note Date: 08/23/21 Morbidly obese 65-year-old female patient with chronic hypoxic and hypercapnic respiratory failure and a body mass index of 73 with chronic diastolic heart failure and chronic lower extremity edema in addition to multiple medical problems and comorbidities. The patient is known to have history of diabetes mellitus, hypertension, remote history of pulmonary embolism, hypothyroidism and the patient has been essentially sedentary and bedbound, nonambulatory for many years, a senior living resident. The patient comes into the hospital because of worsening shortness of breath and increased lower extremity edema. Things have progressed over the past few weeks. No chest pain. No altered mentation. No angina. She is bedbound. As the patient was being transported, she was also found to be in atrial fibrillation with RVR and this is of a new onset. 08/23/2021, the patient is being seen for a follow-up. The patient is currently on BiPAP at a pressure of 12/5 cm of water with an FiO2 of 40%. She remains on Lasix drip at 15 mg an hour. The findings on the case. Fluid balance is negative and the urine output has somewhat improved over this past week and the patient is headed towards a negative fluid balance. For instance, urine output for yesterday was 1.7 L and the day before was 1.4 L. On terms of her blood work from today, the patient has a BUN of 77 with a creatinine of 2.1. Sodium level is at 135. The INR is at 1.6 with a PT of 16.1. She continues to have extensive muscle third spacing and edema in her upper and lower extremities bilaterally. She is on IV Invanz for now underlying urinary checked infection with an ESBL producing E. coli. She also has enterococcus growing in the urine. The white cell count from few days ago was 11.4 with a hemoglobin of 11.2. Nep hrology is on the case. The patient is still on mitogen. The patient is afebrile. The patient is hemodynamically stable. Ultrasound the kidneys was suboptimal due to her body habitus. The patient remains in atrial fibrillation. Rate is controlled for now. She is arousable. She does do brief communications. Objective - Vital Signs Vital signs: Vital Signs Temp 97.6 F 08/23/21 09:17 Pulse 83 08/23/21 12:00 Resp 18 08/23/21 12:00 BP 120/72 08/23/21 12:00 Pulse Ox 94 L 08/23/21 12:00 FiO2 40 08/23/21 07:15 Intake & Output 08/22/21 08/23/21 08/23/21 18:59 06:59 18:59 Intake Total 1607.75 493.0 205 Output Total 1525 975 Balance 82.75 -482.0 205 Weight 219.7 kg Intake: IV 200 300 .9 80 120 Furosemide 100 mg In 120 180 Sodium Chloride 0.9% 90 ml @ 15 MG/HR 15 mls/hr IV .Q6H40M [facility] Rx#: [id number] Intake, IV Titration 207.75 193.0 85 Amount Ertapenem 0.5 gm In 50 Sodium Chloride 0.9% 50 ml @ 100 mls/hr IVPB DAILY [facility] Rx#:[id number] Furosemide 100 mg In 157.75 193.0 85 Sodium Chloride 0.9% 90 ml @ 15 MG/HR 15 mls/hr IV .Q6H40M [facility] Rx#: [id number] Oral 1200 0 120 Output: Urine 1525 975 Uretheral (Claros) 650 975 Other: Voiding Method Indwelling Catheter Indwelling Catheter Indwelling Catheter - Exam Skin: Good color, texture, turgor. Morbidly obese, calm and comfortable, body mass index of 73, patient is confused. The patient on a BiPAP at a pressure of 12/5 cm of water with an FiO2 of 40%. General: Morbidly obese build and comfortable appearance. Head: Normocephalic, atraumatic. Eyes: Symmetric. Pupils equal round. Ears: Symmetric. Hearing within normal limits. Mouth: Clear. Neck: Supple. Carotid without bruit. Mallampati class IV. Cardiac: Irregular consistent with atrial fibrillation . Cardiac exam revealed the PMI to be normally situated and sized. No significant murmurs appreciated Lungs: Clear anteriorly and posteriorly. The breath sounds markedly diminished in the mid and lower lung his bilaterally. No wheezes. No rhonchi. Crackles are present in the lung bases bilaterally Abdomen: Soft active nontender obese. Extremities: Normal tone. There is significant swelling in lower extremities bilaterally and obvious arthritic changes in the knees bilaterally. There is an area of bruise over the left knee area where the fall and impact occurred. Neurological: Mental status: Alert, confused, neurologic exam is nonfocal Cranial nerves: Symmetric facial tone and trapezius. Clinically confused Motor: Able to elevate both arms. Active movement at ankles but unable to elevate legs. Sensation: Intact throughout. DTRs: Symmetric and equal throughout. Mobility: Unable to sit or stand at due to knee pain and long-standing disc mobility. - Labs CBC & Chem 7: 08/21/21 06:42 08/23/21 08:50 Labs: Abnormal Lab Results - Last 24 Hours (Table) 08/22/21 08/22/21 08/23/21 Range/Units 16:18 20:25 06:09 PT (9.0-12.0) sec INR (<1.2) Sodium (137-145) mmol/L Chloride (98-107) mmol/L Carbon Dioxide (22-30) mmol/L BUN (7-17) mg/dL Creatinine (0.52-1.04) mg/dL Glucose (74-99) mg/dL POC Glucose (mg/dL) 121 H 125 H 112 H (75-99) mg/dL 08/23/21 08/23/21 08/23/21 Range/Units 08:50 08:50 11:44 PT 16.1 H (9.0-12.0) sec INR 1.6 H (<1.2) Sodium 135 L (137-145) mmol/L Chloride 86 L (98-107) mmol/L Carbon Dioxide 38 H (22-30) mmol/L BUN 77 H (7-17) mg/dL Creatinine 2.19 H (0.52-1.04) mg/dL Glucose 121 H (74-99) mg/dL POC Glucose (mg/dL) 125 H (75-99) mg/dL Microbiology - Last 24 Hours (Table) 08/18/21 09:12 Blood Culture - Preliminary Blood No Growth after 120 hours Assessment and Plan Plan: Acute shortness of breath, on top of chronic chronic, with acute worsening secondary to CHF and fluid overload. The chest x-ray is consistent with CHF, c ardiomegaly and pulmonary edema and the patient has significant volume overload and increased lower extremity edema consistent with decompensated CHF. The patient currently on Lasix drip at 15 mg an hour and she is headed towards a negative fluid balance over the past few days. Renal function is stable with a creatinine of 2.1. The patient is also being supported with a BiPAP at a pressure of 12/5 cm of water. Acute on chronic hypoxic/hypercapnic respiratory failure currently on BiPAP and a chest x-ray still showing pulmonary edema and volume overload Acute kidney injury, nonoliguric and the renal function is improved urine output is also improved. CHF probably a combination of biventricular diastolic heart failure with acute decompensation significant volume overload New-onset atrial fibrillation with a better rate control and the patient is currently on metoprolol 50 mg by mouth TID . The patient remains on warfarin pharmacy to dose regarding her chronic atrial fibrillation and the need for anticoagulation Chronic hypoxic respiratory failure, still on 4 L of oxygen by nasal cannula Morbid obesity with a BMI of 73.5 Chronic hypoxic and hypercapnic respiratory failure with a component of obesity hypoventilation syndrome Hypertension Previous history of pulmonary embolism maintained on long-term and to coagulation with warfarin, PT/INR is subtherapeutic Hypothyroidism, normal TSH, Chronic lower extremity edema Diabetes mellitus retirement resident Plan Continue Lasix drip at 15 mg an hour and most recent chest x-ray still showing pulmonary edema and smaller lung volumes and this is from 08/23/2021. She does have also underlying cardiomegaly, and she is being supported with oxygen at 4 L and BiPAP overnight. Monitor renal function and keep the Claros catheter in place Continue BiPAP the same pressure of 12/5 cm of water May need hemodialysis if no improvement. This will be discussed further with nephrology. Echo has shown a moderate LV function impairment with an ejection fraction of 40-45% and there is a moderate pericardial effusion without any signs of tamponade. Noted the patient has history of hypothyroidism and her TSH has been also within normal at 4.5.. Long-term prognosis poor baseline above-mentioned comorbidities. We'll continue to follow. Recommended changing the CODE STATUS
--- NOTE | 2021-08-23 15:40 | P.PN ---
Subjective Progress Note Date: 08/23/21 This 65-year-old female was recently admitted with CHF and atrial fibrillation cardio following closely. Patient was maintained on IV Cardizem which is currently being transitioned IV amiodarone along with IV heparin. 2-D echo was ordered and pending at this time. Patient continues on 2 L of oxygen via nasal cannula at 90% oxygen pulse ox and continues to report shortness of breath and generalized weakness. Patient is morbidly obese with a BMI of 73.5 and resides in [place] Patient's blood pressure is elevated and will initiate Norvasc 10 mg daily and monitor closely. Infectious disease also consulted for a wound on the left hip along with pulmonary for COPD acute exacerbation. Patient denies any chest pain and patient is afebrile. 08/13/2021 Patient is seen today in follow up and continues to report shortness of breath. Cardiology and pulmonary and ID following. Patient is continued on bronchodilators and also continues on IV lasix. IV heparin continued and being started on coumadin. Transitioned to oral amiodarone and cardiology adjusting medications. Patient denies chest pain and is afebrile. 08/14/2021 Patient is seen this am and continues with cardiology and pulmonary following. Neprhology consulted for elevated kidney functions and patient is continued on IV lasix. US renal/bladder and pending. Patient continues with 3L via NC and breathing treatments along with IV heparin and coumadin with pharmacy to dose. Cardiology also following. Patient is afebrile and denies any chest pain. Patient reports not eating or drinking. 08/15/2021 Patient is seen today and continues with worsening renal functions and also some hypotension. Patient was maintained on IV heparin with coumadin and INR is 2.6 today and will dc heparin. Patient with hypotension and adding some midodrine and per nephro will give a 250ml bolus. Off IV lasix for now given worsening renal functions. Poor oral intake and decreased urine output from yesterday. Continue lacy catheter and encouraged oral intake. Patient is more lethargic today as well. 08/16/2021 Patient is seen in follow-up currently maintained on BiPAP and continues with shortness of breath. Multiple medical consultations following including pulmonary, nephrology, cardiology and patient continues with volume overload and is being started on IV Lasix. Patient with worsening kidney functions and decreased urine output although bladder and abdomen ultrasound showed no evidence of hydronephrosis. Patient also transition to Coumadin and INR is 4.0 and recommend to hold Coumadin and repeat labs. Sodium is 133 with a potassium of 4.3, BUN is 50, creatinine is 2.03. Patient not really tolerating any oral diet and difficult given the BiPAP is continuous at this time. Patient is anxious with family friend at the bedside. Patient is afebrile and denies any chest pain. Patient to continue with local wound care per ID with frequent position changes as well. 08/17/2021 Patient is seen this morning and continues on IV lasix drip with cardiology, pulmonary, and nephrology following. Patient is on bipap and continues with poor oral intake and minimal urine output. Indwelling catheter for strict monitoring of intake and output. Patient did have some brief periods of attempting nasal cannula and was able to take medications and have 2cups of applesauce per staff training and development manager. WBC is elevated and CXR ordered. Patient is afebrile and denies chest pain. 08/18/2021 Patient is seen in follow-up this morning continues on IV Lasix drip with nephrology and cardiology following closely. Patient also continues on IV ceftriaxone and also has been transitioned and titrated down on oral amiodarone. Patient morning labs pending at this time and patient is normally on Coumadin although currently held as patient was having elevated INR. Will follow-up with morning labs. Patient is now off BiPAP this morning and maintained on 4 L was 93-94% oxygen saturation. Urine output is decreased but has slowly improved. Oral intake is poor. Patient is afebrile and denies any chest pain or worsening shortness of breath. 08/19/2021 Patient is seen in follow-up this morning and mentation is slowly improving although patient continues to be lethargic and is continued on BiPAP at night and as needed and also currently maintained on 4 L via nasal cannula. Patient continues on IV Lasix drip with some improvement in urine output and will continue with indwelling Lacy catheter. Urine with urine culture was done and preliminary showing gram-negative bacilli with ID following and IV ceftriaxone being initiated. Patient's INR improved after vitamin K administration and will continue with Coumadin with pharmacy to dose. Patient is afebrile and denies any worsening shortness of breath or chest pain. Patient is asking if she can return home. Patient is a resident at [facility]. 08/20/2021 Patient is seen this morning and is more awake and alert and reports to feeling better and would like to go home. Discussed with patient about continuing on IV lasix and will need to transition to oral once kidney functions improve. Urine output has improved. Oral intake is poor and will add Megase. Discussed with dietitian. Patient also being switched to IV invanz with ID following for UTI as repeat urine remains growing gram negative. Will await cultures. Patient is afebrile. Patient denies chest pains. 08/23/2021 Patient is seen in follow-up this morning continues on 4 L via nasal cannula also continues on IV Lasix drip with nephrology following and kidney function slowly improving and urine output is improved and no plans for immediate renal replacement at this time. Chest x-ray today continues to show pulmonary edema and will continue on IV Lasix. Encouraged oral intake and patient also was maintained on breathing treatments. Patient continues on Coumadin with pharmacy to dose and INR was 1.4 today and recommend repeat labs and close monitoring. Patient continues with indwelling Lacy catheter and will continue. Infectious disease also following and urine continues to show ESBL and enterococcus patient is maintained on IV Invanz and will continue. Patient denies worsening shortness of breath or chest pain. Patient is afebrile. Review of systems: Constitutional: reports of fatigue and weakness, no reports of fever, or chills Cardiovascular: No reports of chest pain or palpitations Respiratory: reports of shortness of breath with some improvement GI: No reports of nausea, no reports of of vomiting, poor appetite : No reports of dysuria or retention, currently with indwelling catheter Neurovascular: reports of generalized weakness All medications have been reviewed Active Medications Acetaminophen (Acetaminophen Tab 325 Mg Tab) 650 mg PO Q6HR PRN PRN Reason: Mild Pain or Fever > 100.5 Last Admin: 08/18/21 08:46 Dose: 650 mg Albuterol/Ipratropium (Ipratropium-Albuterol 3 Ml Neb) 3 ml INHALATION RT-TID [facility] Last Admin: 08/23/21 11:17 Dose: 3 ml Ascorbic Acid (Ascorbic Acid 500 Mg Tab) 500 mg PO DAILY@1700 [facility] Last Admin: 08/22/21 17:24 Dose: 500 mg Atorvastatin Calcium (Atorvastatin 20 Mg Tab) 20 mg PO HS [facility] Last Admin: 08/22/21 21:24 Dose: 20 mg Bisacodyl (Bisacodyl 10 Mg Supp) 10 mg RECTAL DAILY PRN PRN Reason: Constipation Calcium Carbonate (Calcium Carb-Vit D 500 Mg-5 Mcg Tab) 1 each PO DAILY@1700 [facility] Last Admin: 08/22/21 17:24 Dose: 1 each Calcium Carbonate/Glycine (Calcium Carbonate 500 Mg Chewable) 500 mg PO DAILY@1700 [facility] Last Admin: 08/22/21 17:24 Dose: 500 mg Cholecalciferol (Cholecalciferol 25 Mcg (1000 Iu) Tablet) 100 mcg PO DAILY@1200 [facility] Last Admin: 08/23/21 11:53 Dose: 100 mcg Cyanocobalamin (Cyanocobalamin 500 Mcg Tab) 500 mcg PO DAILY@1700 [facility] Last Admin: 08/22/21 17:24 Dose: 500 mcg Docusate Sodium (Docusate 100 Mg Cap) 100 mg PO DAILY@1000 [facility] Last Admin: 08/23/21 09:35 Dose: 100 mg Escitalopram Oxalate (Escitalopram 20 Mg Tab) 20 mg PO DAILY@1000 [facility] Last Admin: 08/23/21 09:35 Dose: 20 mg Ferrous Sulfate (Ferrous Sulfate 325 Mg Tab) 325 mg PO BID@1000,1700 [facility] Last Admin: 08/23/21 09:35 Dose: 325 mg Folic Acid (Folic Acid 1 Mg Tab) 0.5 mg PO DAILY@1000 [facility] Last Admin: 08/23/21 09:35 Dose: 0.5 mg Glipizide (Glipizide 2.5 Mg Tab) 2.5 mg PO DAILY@1000 [facility] Last Admin: 08/23/21 09:35 Dose: 2.5 mg Furosemide 100 mg/ Sodium (Chloride) 100 mls @ 15 mls/hr IV .Q6H40M [facility] Last Admin: 08/23/21 12:00 Dose: 15 mg/hr, 15 mls/hr Ertapenem 0.5 gm/ Sodium (Chloride) 50 mls @ 100 mls/hr IVPB DAILY [facility]; Protocol Last Admin: 08/23/21 09:34 Dose: 100 mls/hr Insulin Aspart (Insulin Aspart (Novolog) 100 Unit/Ml Vial) 0 unit SQ ACHS [facility]; Protocol Last Admin: 08/23/21 11:48 Dose: Not Given Lactobacillus Acidoph/Bulgaricus (Lactobacillus Acidoph & Bulgar 1 Each Packet) 1 each PO DAILY@1200 [facility] Last Admin: 08/23/21 11:53 Dose: 1 each Levothyroxine Sodium (Levothyroxine 88 Mcg Tab) 88 mcg PO DAILY@1000 [facility] Last Admin: 08/23/21 09:35 Dose: 88 mcg Lidocaine (Lidocaine 5% Ointment 50 Gm Jar) 1 applic TOPICAL HS PRN PRN Reason: WOUND PAIN Linagliptin (Linagliptin 5 Mg Tablet) 5 mg PO DAILY@1700 [facility] Last Admin: 08/22/21 17:24 Dose: 5 mg Magnesium Hydroxide (Magnesium Hydroxide 2,400 Mg/10 Ml Cup) 2,400 mg PO Q48H PRN PRN Reason: Constipation Megestrol Acetate (Megestrol 40 Mg Tab) 40 mg PO DAILY [facility] Last Admin: 08/23/21 09:35 Dose: 40 mg Methyl Salicylate (Methyl Salicylate-Menthol Oint (3 Oz Tube)) 1 applic TOPICAL DAILY PRN PRN Reason: pain Metolazone (Metolazone 5 Mg Tab) 5 mg PO BID [facility] Last Admin: 08/23/21 09:36 Dose: 5 mg Metoprolol Tartrate (Metoprolol Tartrate 50 Mg Tab) 50 mg PO TID [facility] Last Admin: 08/23/21 09:35 Dose: 50 mg Midodrine (Midodrine 5 Mg Tab) 10 mg PO AC-TID [facility] Last Admin: 08/23/21 11:58 Dose: Not Given Miscellaneous Information (Warfarin Per Pharmacy) 1 each MISCELLANE DIRECTED PRN; Protocol PRN Reason: Per Protocol Multivitamins (Multivitamins, Thera 1 Each Tab) 1 each PO DAILY@1700 [facility] Last Admin: 08/22/21 17:24 Dose: 1 each Naloxone HCl (Naloxone 0.4 Mg/Ml 1 Ml Vial) 0.2 mg IV Q2M PRN PRN Reason: Opioid Reversal Nystatin (Nystatin 100,000 Unit/Gm Powd 15 Gm) 1 applic TOPICAL BID [facility]; Protocol Last Admin: 08/23/21 09:36 Dose: 1 applic Nystatin (Nystatin 100,000unit/Gm Cream 30 Gm Tube) 1 applic TOPICAL BID [facility] Last Admin: 08/23/21 09:34 Dose: 1 applic Pantoprazole Sodium (Pantoprazole 40 Mg Tablet) 40 mg PO HS@2200 [facility] Last Admin: 08/22/21 21:24 Dose: 40 mg Simethicone (Simethicone 80 Mg Chewable) 80 mg PO PC-TID PRN PRN Reason: UPPERGASTRIC DISTRESS Triamcinolone Acetonide (Triamcinolone 0.1% Cream 80 Gm Tube) 1 applic TOPICAL BID [facility] Last Admin: 08/23/21 09:34 Dose: 1 applic Warfarin Sodium (Warfarin 2 Mg Tab) 4 mg PO ONCE@1800 ONE Stop: 08/23/21 18:01 PHYSICAL EXAMINATION: GENERAL: The patient is alert and oriented x3, morbidly obese Well developed, well nourished. less anxious today and on 4L via NC HEENT: Pupils are round and equally reacting to light. EOMI. no scleral icterus. No conjunctival pallor. Normocephalic, atraumatic. No pharyngeal erythema. No thyromegaly. CARDIOVASCULAR: S1 and S2 muffled PULMONARY: diminished breath sounds bilaterally with some crackles and scattered rhonchi noted. ABDOMEN: soft. Nontender on exam. obese. non-distended, normoactive bowel sounds. No palpable organomegaly. MUSCULOSKELETAL: No joint swelling or deformity. EXTREMITIES: No cyanosis, clubbing, or pedal edema. Generalized edema noted throughout NEUROLOGICAL: Gross neurological examination did not reveal any focal deficits. Diffuse weakness SKIN: No rashes. Assessment: Atrial fibrillation with RVR new onset Congestive heart failure, acute exacerbation with preserved EF Acute urinary tract infection present on admission possibly secondary to urinary retention showing ESBL with enterococcus Morbid obesity with a BMI of 83.1 acute kidney injury Coagulopathy on coumadin COPD, acute exacerbation Diabetes mellitus, type 2 History of PE HIstory of esbl, MRSA Left hip wound GI prophylaxis DVT prophylaxis Full code Plan: Recommend to continue with current medications and management with cardiology following. Infectious disease following for left hip wound and will continue Local wound care and frequent position changes. Repeat urine culture showing ESBL with enterococcus and patient is maintained on IV Invanz with ID following. Pulmonary also following and will continue on breathing inhalational treatments. INR subtherapeutic at 1.4 with pharmacy to dose as patient is on Coumadin. Recommend to continue telemetry monitoring. Patient weaning FI02 as tolerated and currently on 4L via NC and recommend to continue with Bipap from 8pm to 8am and as needed. Nephrology following for worsening kidney functions and significant overload and patient is maintained on IV Lasix drip with close monitoring and recommend follow-up labs. Output improved and will continue lacy for now. Chest x-ray continues to show pulmonary edema. Strict intake and output. Patient is a resident at [facility] and will be returning there once stabilized and discharged. Will discuss with case management/social work about having Bipap in the outpatient setting. Due to multiple complex medical issues, prognosis is extremely guarded. The impression and plan of care has been dictated by Shefali Becerra, nurse practitioner as directed. Dr. Negra MD I have performed a history and examination and MDM of this patient, discussed the same with the dictator, and agree with the dictator's assessment and plan as written ,documented as a scribe. Based on total visit time, I have performed more than 50% of the visit. Any additional findings or plans will be noted. Objective - Vital Signs Vital signs: Vital Signs Temp 97.6 F 08/23/21 04:00 Pulse 82 08/23/21 07:26 Resp 18 08/23/21 04:00 BP 113/70 08/23/21 04:00 Pulse Ox 92 L 08/23/21 04:00 FiO2 40 08/23/21 07:15 Intake & Output 08/22/21 08/23/21 08/23/21 18:59 06:59 18:59 Intake Total 1607.75 493.0 120 Output Total 1525 975 Balance 82.75 -482.0 120 Weight 219.7 kg Intake: IV 200 300 .9 80 120 Furosemide 100 mg In 120 180 Sodium Chloride 0.9% 90 ml @ 15 MG/HR 15 mls/hr IV .Q6H40M [facility] Rx#: [id number] Intake, IV Titration 207.75 193.0 Amount Ertapenem 0.5 gm In 50 Sodium Chloride 0.9% 50 ml @ 100 mls/hr IVPB DAILY [facility] Rx#:[id number] Furosemide 100 mg In 157.75 193.0 Sodium Chloride 0.9% 90 ml @ 15 MG/HR 15 mls/hr IV .Q6H40M [facility] Rx#: [id number] Oral 1200 0 120 Output: Urine 1525 975 Uretheral (Lacy) 650 975 Other: Voiding Method Indwelling Catheter Indwelling Catheter - Labs CBC & Chem 7: 08/21/21 06:42 08/23/21 08:50 Labs: Abnormal Lab Results - Last 24 Hours (Table) 08/22/21 08/22/21 08/22/21 Range/Units 11:49 16:18 20:25 POC Glucose (mg/dL) 145 H 121 H 125 H (75-99) mg/dL 08/23/21 Range/Units 06:09 POC Glucose (mg/dL) 112 H (75-99) mg/dL Microbiology - Last 24 Hours (Table) 08/18/21 09:12 Blood Culture - Preliminary Blood No Growth after 96 hours
[2021-08-23 16:32] LABS: Glucose,Whole Blood 82 mg/dL (75-99)
[2021-08-23] MEDS: CALCIUM CARBONATE 500 MG CHEWABLE PO SCH (17:10)
[2021-08-23] MEDS: CYANOCOBALAMIN 500 MCG TAB PO SCH (17:10)
[2021-08-23] MEDS: LINAGLIPTIN 5 MG TABLET PO SCH (17:10)
[2021-08-23] MEDS: CALCIUM CARB-VIT D 500 MG-5 MCG TAB PO SCH (17:10)
[2021-08-23] MEDS: MULTIVITAMINS, THERA 1 EACH TAB PO SCH (17:10)
[2021-08-23] MEDS: ASCORBIC ACID 500 MG TAB PO SCH (17:10)
[2021-08-23] MEDS ORDERED: WARFARIN 2 MG TAB PO ONE (18:00)
[2021-08-23 20:30] LABS: Glucose,Whole Blood 115 mg/dL (75-99)
[2021-08-23] MEDS: PANTOPRAZOLE 40 MG TABLET PO SCH (21:11)
[2021-08-23] MEDS: ATORVASTATIN 20 MG TAB PO SCH (21:11)
[2021-08-24] MEDS: FUROSEMIDE 100 MG in SODIUM CHLORIDE 0.9% 90 ML IV SCH ×4 (01:14→21:11)
[2021-08-24 05:59] LABS: Glucose,Whole Blood 100 mg/dL (75-99)
[2021-08-24] MEDS: INSULIN ASPART (NovoLOG) 100 UNIT/ML VIAL SQ SCH ×4 (06:05→20:56)
[2021-08-24] MEDS: MIDODRINE 5 MG TAB PO SCH ×3 (06:33→17:31)
[2021-08-24] MEDS: IPRATROPIUM-ALBUTEROL 3 ML NEB INHALATION SCH ×3 (08:45→19:23)
[2021-08-24] MEDS: FOLIC ACID 1 MG TAB PO SCH (09:01)
[2021-08-24] MEDS: METOPROLOL TARTRATE 50 MG TAB PO SCH ×3 (09:02→20:59)
[2021-08-24] MEDS: metOLazone 5 MG TAB PO SCH ×2 (09:02→20:59)
[2021-08-24] MEDS: LEVOTHYROXINE 88 MCG TAB PO SCH (09:02)
[2021-08-24] MEDS: MEGESTROL 40 MG TAB PO SCH (09:02)
[2021-08-24] MEDS: DOCUSATE 100 MG CAP PO SCH (09:02)
[2021-08-24] MEDS: NYSTATIN 100,000 UNIT/GM POWD 15 GM TOPICAL SCH ×2 (09:02→21:00)
[2021-08-24] MEDS: ESCITALOPRAM 20 MG TAB PO SCH (09:02)
[2021-08-24] MEDS: FERROUS SULFATE 325 MG TAB PO SCH ×2 (09:02→17:31)
[2021-08-24] MEDS: NYSTATIN 100,000UNIT/GM CREAM 30 GM TUBE TOPICAL SCH ×2 (09:03→21:00)
[2021-08-24] MEDS: TRIAMCINOLONE 0.1% CREAM 80 GM TUBE TOPICAL SCH ×2 (09:03→21:00)
[2021-08-24] MEDS: ERTAPENEM 0.5 GM in SODIUM CHLORIDE 0.9% 50 ML IVPB SCH (09:23)
[2021-08-24 09:30] LABS: INR 1.9 (<1.2); Prothrombin Time 19.5 sec (9.0-12.0)
[2021-08-24 09:55] LABS: Calcium 8.8 mg/dL (8.4-10.2); Magnesium 2.1 mg/dL (1.6-2.3); Potassium 3.6 mmol/L (3.5-5.1)
--- NOTE | 2021-08-24 11:35 | P.PN ---
Subjective Patient is seen in follow-up for acute kidney injury. Renal function stable. Nonoliguric. Maintained on Lasix drip and metolazone. Oral intake fair. Denies vomiting or diarrhea. Hemodynamically stable. No chest pain or shortness of breath. On 4 L nasal cannula. No changes overnight. Vital signs stable. General: No acute distress. HEENT: Head exam is unremarkable. On nasal cannula. LUNGS: Breath sounds decreased. HEART: Rate and Rhythm are regular. ABDOMEN: Soft, obese. EXTREMITITES: 2+ edema. Objective - Vital Signs Vital signs: Vital Signs Temp 98.2 F 08/24/21 07:50 Pulse 96 08/24/21 08:59 Resp 18 08/24/21 08:00 BP 126/87 08/24/21 07:50 Pulse Ox 96 08/24/21 07:50 FiO2 40 08/24/21 07:50 Intake & Output 08/23/21 08/24/21 08/24/21 18:59 06:59 18:59 Intake Total 305 149.5 100 Output Total 1125 925 650 Balance -820 -775.5 -550 Weight 219.7 kg 217.6 kg Intake: Intake, IV Titration 185 89.5 100 Amount Furosemide 100 mg In 185 89.5 100 Sodium Chloride 0.9% 90 ml @ 15 MG/HR 15 mls/hr IV .Q6H40M [facility] Rx#: [id number] Oral 120 60 Output: Urine 1125 925 650 Uretheral (Claros) 800 925 Other: Voiding Method Indwelling Catheter Indwelling Catheter Indwelling Catheter - Labs CBC & Chem 7: 08/21/21 06:42 08/24/21 08:59 Labs: Abnormal Lab Results - Last 24 Hours (Table) 08/23/21 08/23/21 08/24/21 Range/Units 11:44 20:29 05:58 PT (9.0-12.0) sec INR (<1.2) Sodium (137-145) mmol/L Chloride (98-107) mmol/L Carbon Dioxide (22-30) mmol/L BUN (7-17) mg/dL Creatinine (0.52-1.04) mg/dL POC Glucose (mg/dL) 125 H 115 H 100 H (75-99) mg/dL 08/24/21 08/24/21 Range/Units 08:59 08:59 PT 19.5 H (9.0-12.0) sec INR 1.9 H (<1.2) Sodium 136 L (137-145) mmol/L Chloride 86 L (98-107) mmol/L Carbon Dioxide 40 H (22-30) mmol/L BUN 79 H (7-17) mg/dL Creatinine 2.23 H (0.52-1.04) mg/dL POC Glucose (mg/dL) (75-99) mg/dL Microbiology - Last 24 Hours (Table) 08/18/21 09:12 Blood Culture - Preliminary Blood No Growth after 120 hours Assessment and Plan Plan: Assessment: 1. Acute kidney injury secondary to ATN secondary to cardiorenal syndrome and infection. Baseline creatinine near 1. Renal function fairly stable last few days. Creatinine 2.23 today. Nonoliguric. No proteinuria on UA done 08/18/2021. No hydronephrosis noted on kidney ultrasound. 2. Acute on chronic systolic CHF with ejection fraction of 40-45%. 3. Volume overload. 4. E. coli and enterococcus UTI on antibiotics. 5. Diabetes mellitus. 6. A. fib with RVR maintained on metoprolol and Coumadin. Cardiology following. 7. Acute on chronic hypoxic and hypercapnic respiratory failure. 8. Morbid obesity. Plan: Maintain Lasix drip and metolazone. Low-salt diet and 1500 mL fluid restriction. Avoid nephrotoxins. Continue to monitor renal function and urine output. Continue to assess daily for need for renal replacement therapy. Urine output improved. No urgency at this time. Maintain midodrine. Hold for systolic blood pressure above 110.
[2021-08-24] MEDS ORDERED: POTASSIUM CHLORIDE ER 20 MEQ TAB.ER PO STA (11:36)
[2021-08-24 11:56] LABS: Glucose,Whole Blood 162 mg/dL (75-99)
--- NOTE | 2021-08-24 12:13 | P.PN ---
Subjective Progress Note Date: 08/24/21 Principal diagnosis: Shortness of breath On 08/17/2021 patient seen in follow-up on selective care unit. She is awake and alert, in no acute distress, she has been wearing BiPAP intermittently, she is currently on nasal cannula, patient remains on IV Lasix at 50 mg/h. However her urine output has been very minimal, and patient still has significant generalized edema and significant lower extremity edema. Renal function continues to worsen and on today's labs BUN is 56, and creatinine is 2.05. Sodium is 134, potassium is 4.3. Urinalysis showed evidence of acute urinary tract infection. White blood cell count has increased and is up to 16.2, hemoglobin is 10.7. INR is 4.5. No nausea or vomiting, although her appetite is poor. No Complains of chest discomfort. No coughing or wheezing, no fever or chills. On 08/18/2021 patient seen in follow-up on selective care unit, she is awake, answering questions appropriately, she did wear BiPAP support pressures of 12 and 4, and FiO2 40% overnight, she is currently on 4 L of oxygen pulse ox is 93%, she is afebrile, blood pressure is been stable. She remains on Lasix infusion at 15 mg per hour, she is only in -48 cc negative fluid balance over the last 24 hours, she has produced 575 ML of urine, and remains significantly fluid overloaded with anasarca, significant peripheral edema. Chest x-ray today showed diffuse pleural parenchymal changes that are stable in appearance related to CHF. Today's labs have been reviewed, INR is 5.9, sodium is 133, potassium is 4.4, chloride is 88, CO2 is stable at 36, renal function continues to slightly worsen, and BUN is 57, creatinine is 2.22. Urinalysis showed evidence of urinary tract infection, urine culture is currently pending. On 08/19/2021 patient is seen in follow-up on selective care unit. He remains on Lasix drip at 15 mg per hour, however her urine output remains poor, and she is actually in 925 ML positive net fluid balance over the last 24 hours. We requested nursing staff to obtain a current weight, the patient is positive at 19.6 kilos since admission. She is significantly fluid overloaded with anasarca, and severe pitting edema of bilateral lower extremities, abdomen, thighs. Today's labs have been reviewed, showing white blood cell count of 15.6, hemoglobin of 11.2, she received vitamin K for INR of 5.9 yesterday, INR is currently down to 1.4, Coumadin remains on hold, pharmacy is dosing, sodium is 132, potassium is 4.3, chloride is 87, CO2 is 38, BUN is 60, creatinine is 2.29, pro calcitonin level is 0.30, urinalysis showed evidence of urinary tract infection, we will empirically place the patient on Rocephin, and urine culture has been sent., Currently showing gram-negative bacilli, final culture is pending On 08/24/2021 patient seen in follow-up on selective care unit, she is resting in bed, have a drowsy, but arouses to voice, and answers questions appropriately. Patient has been wearing BiPAP support at night with FiO2 of 40%, and pressures of 12 and 5. Patient remains on Lasix infusion at 15 mg per hour, and Zaroxolyn 5 mg twice a day, and patient is in -1.6 L 24 hours, still has significant peripheral edema including bilateral lower extremities and abdominal wall, yesterday's chest x-ray showed similar cardiomegaly and diffuse interstitial patchy opacities possible patchy pulmonary edema, extensive opacity left mid and lower lung persistence likely combination of moderate pleural effusion with adjacent atelectasis. Labs have been reviewed, INR is 1.9, sodium is 136, potassium 3.6, chloride is 86, CO2 is 40, BUN is 79, and creatinine is 2.23. Also found to have enterococcus faecalis and ESBL E. coli urinary tract infection, and is currently on ertapenem for antibiotic coverage. She's had no fever or chills overnight, vital signs have been stable, ID service is following. Objective - Vital Signs Vital signs: Vital Signs Temp 98.2 F 08/24/21 07:50 Pulse 96 08/24/21 08:59 Resp 18 08/24/21 08:00 BP 126/87 08/24/21 07:50 Pulse Ox 96 08/24/21 07:50 FiO2 40 08/24/21 07:50 Intake & Output 08/23/21 08/24/21 08/24/21 18:59 06:59 18:59 Intake Total 305 149.5 100 Output Total 1125 925 650 Balance -820 -775.5 -550 Weight 219.7 kg 217.6 kg Intake: Intake, IV Titration 185 89.5 100 Amount Furosemide 100 mg In 185 89.5 100 Sodium Chloride 0.9% 90 ml @ 15 MG/HR 15 mls/hr IV .Q6H40M [facility] Rx#: [id number] Oral 120 60 Output: Urine 1125 925 650 Uretheral (Claros) 800 925 Other: Voiding Method Indwelling Catheter Indwelling Catheter Indwelling Catheter - Exam GENERAL EXAM: Alert, very pleasant, 65-year-old morbidly obese white female, on nasal cannula and BiPAP support intermittently, comfortable in no apparent distress. HEAD: Normocephalic/atraumatic. EYES: Normal reaction of pupils, equal size. Conjunctiva pink, sclera white. NOSE: Clear with pink turbinates. THROAT: No erythema or exudates. NECK: No masses, no JVD, no thyroid enlargement, no adenopathy. CHEST: No chest wall deformity. Symmetrical expansion. LUNGS: Equal air entry with no crackles, wheeze, rhonchi or dullness. CVS: Regular rate and rhythm, normal S1 and S2, no gallops, no murmurs, no rubs ABDOMEN: Soft, obese, nontender No hepatosplenomegaly, normal bowel sounds, no guarding or rigidity. EXTREMITIES: No clubbing, 3+ lower extremity edema no cyanosis, 2+ pulses and upper and lower extremities. MUSCULOSKELETAL: Muscle strength and tone normal. SPINE: No scoliosis or deformity SKIN: No rashes CENTRAL NERVOUS SYSTEM: Alert and oriented -3. No focal deficits, tone is normal in all 4 extremities. PSYCHIATRIC: Alert and oriented -3. Appropriate affect. Intact judgment and insight. - Labs CBC & Chem 7: 08/21/21 06:42 08/24/21 08:59 Labs: Abnormal Lab Results - Last 24 Hours (Table) 08/23/21 08/24/21 08/24/21 Range/Units 20:29 05:58 08:59 PT 19.5 H (9.0-12.0) sec INR 1.9 H (<1.2) Sodium (137-145) mmol/L Chloride (98-107) mmol/L Carbon Dioxide (22-30) mmol/L BUN (7-17) mg/dL Creatinine (0.52-1.04) mg/dL POC Glucose (mg/dL) 115 H 100 H (75-99) mg/dL 08/24/21 08/24/21 Range/Units 08:59 11:54 PT (9.0-12.0) sec INR (<1.2) Sodium 136 L (137-145) mmol/L Chloride 86 L (98-107) mmol/L Carbon Dioxide 40 H (22-30) mmol/L BUN 79 H (7-17) mg/dL Creatinine 2.23 H (0.52-1.04) mg/dL POC Glucose (mg/dL) 162 H (75-99) mg/dL Microbiology - Last 24 Hours (Table) 08/18/21 09:12 Blood Culture - Final Blood No Growth after 144 hours Assessment and Plan Plan: Assessment: #1. Acute shortness of breath, acute on chronic with evidence of worsening CHF with diastolic dysfunction. Chest x-ray findings are consistent with CHF, cardiomegaly and pulmonary edema and increased lower extremity edema related to decompensated CHF. #2. Acute on chronic hypoxic/hypercapnic respiratory failure on BiPAP alternating with nasal cannula #3. Acute kidney injury patient is oliguric, nephrology is on the case. Live nt is on Lasix infusion in addition to Zaroxolyn, and is starting to produce improved urine output #4. CHF with probable biventricular diastolic heart failure with acute decompensation is significant volume overload #5. New onset atrial fibrillation, currently controlled with oral amiodarone and metoprolol #6. Chronic hypoxic respiratory failure #7. Morbid obesity with BMI of 73.5 kg/m #8. Chronic hypoxic and hypercapnic respiratory failure with a component of obesity hypoventilation syndrome #9. Hypertension #10. Previous history of pulmonary embolism on Coumadin #11. Hypothyroidism #12. Chronic lower extremity edema #13. Diabetes mellitus #14. Resident of an extended care facility #15. Acute urinary tract infection related to ESBL E. coli, and enterococcus faecalis, currently on ertapenem Plan: Patient's maintaining negative fluid balance Continue Lasix infusion and Zaroxolyn Continue antibiotics per ID service Continue BiPAP support at bedtime and as needed Daily weights, and accurate intake and output Daily labs including electrolytes and renal profile I have personally seen and examined the patient, performed the documentation and the assessment and plan as written. Number of minutes spent on the visit: [10] The joint evaluation that was done along with a nurse practitioner. The patient is responding well to diuretics. We'll keep the Lasix drip for now. We will continue to Zaroxolyn. Monitor urine output. Monitor renal function. Co ndition is stable. BiPAP overnight. We'll continue to follow. Continue IV Invanz regarding E. coli ESBL and enterococcus infection. The sedation was done and more than 20 minutes. Time with Patient: Less than 30
[2021-08-24] MEDS: LACTOBACILLUS ACIDOPH & BULGAR 1 EACH PACKET PO SCH (12:38)
[2021-08-24] MEDS: CHOLECALCIFEROL 25 MCG (1000 IU) TABLET PO SCH (12:38)
[2021-08-24 16:53] LABS: Glucose,Whole Blood 96 mg/dL (75-99)
[2021-08-24] MEDS: ASCORBIC ACID 500 MG TAB PO SCH (17:31)
[2021-08-24] MEDS: CALCIUM CARBONATE 500 MG CHEWABLE PO SCH (17:31)
[2021-08-24] MEDS: LINAGLIPTIN 5 MG TABLET PO SCH (17:31)
[2021-08-24] MEDS: MULTIVITAMINS, THERA 1 EACH TAB PO SCH (17:31)
[2021-08-24] MEDS: CALCIUM CARB-VIT D 500 MG-5 MCG TAB PO SCH (17:32)
[2021-08-24] MEDS: CYANOCOBALAMIN 500 MCG TAB PO SCH (17:32)
[2021-08-24] MEDS ORDERED: WARFARIN 2.5 MG TAB PO ONE (18:00)
--- NOTE | 2021-08-24 19:33 | P.PN ---
Subjective Progress Note Date: 08/24/21 This 65-year-old female was recently admitted with CHF and atrial fibrillation cardio following closely. Patient was maintained on IV Cardizem which is currently being transitioned IV amiodarone along with IV heparin. 2-D echo was ordered and pending at this time. Patient continues on 2 L of oxygen via nasal cannula at 90% oxygen pulse ox and continues to report shortness of breath and generalized weakness. Patient is morbidly obese with a BMI of 73.5 and resides [place] Patient's blood pressure is elevated and will initiate Norvasc 10 mg daily and monitor closely. Infectious disease also consulted for a wound on the left hip along with pulmonary for COPD acute exacerbation. Patient denies any chest pain and patient is afebrile. 08/13/2021 Patient is seen today in follow up and continues to report shortness of breath. Cardiology and pulmonary and ID following. Patient is continued on bronchodilators and also continues on IV lasix. IV heparin continued and being started on coumadin. Transitioned to oral amiodarone and cardiology adjusting medications. Patient denies chest pain and is afebrile. 08/14/2021 Patient is seen this am and continues with cardiology and pulmonary following. Neprhology consulted for elevated kidney functions and patient is continued on IV lasix. US renal/bladder and pending. Patient continues with 3L via NC and breathing treatments along with IV heparin and coumadin with pharmacy to dose. Cardiology also following. Patient is afebrile and denies any chest pain. Patient reports not eating or drinking. 08/15/2021 Patient is seen today and continues with worsening renal functions and also some hypotension. Patient was maintained on IV heparin with coumadin and INR is 2.6 today and will dc heparin. Patient with hypotension and adding some midodrine and per nephro will give a 250ml bolus. Off IV lasix for now given worsening renal functions. Poor oral intake and decreased urine output from yesterday. Continue lacy catheter and encouraged oral intake. Patient is more lethargic today as well. 08/16/2021 Patient is seen in follow-up currently maintained on BiPAP and continues with shortness of breath. Multiple medical consultations following including pulmonary, nephrology, cardiology and patient continues with volume overload and is being started on IV Lasix. Patient with worsening kidney functions and decreased urine output although bladder and abdomen ultrasound showed no evidence of hydronephrosis. Patient also transition to Coumadin and INR is 4.0 and recommend to hold Coumadin and repeat labs. Sodium is 133 with a potassium of 4.3, BUN is 50, creatinine is 2.03. Patient not really tolerating any oral diet and difficult given the BiPAP is continuous at this time. Patient is anxious with family friend at the bedside. Patient is afebrile and denies any chest pain. Patient to continue with local wound care per ID with frequent position changes as well. 08/17/2021 Patient is seen this morning and continues on IV lasix drip with cardiology, pulmonary, and nephrology following. Patient is on bipap and continues with poor oral intake and minimal urine output. Indwelling catheter for strict monitoring of intake and output. Patient did have some brief periods of attempting nasal cannula and was able to take medications and have 2cups of applesauce per staff educator. WBC is elevated and CXR ordered. Patient is afebrile and denies chest pain. 08/18/2021 Patient is seen in follow-up this morning continues on IV Lasix drip with nephrology and cardiology following closely. Patient also continues on IV ceftriaxone and also has been transitioned and titrated down on oral amiodarone. Patient morning labs pending at this time and patient is normally on Coumadin although currently held as patient was having elevated INR. Will follow-up with morning labs. Patient is now off BiPAP this morning and maintained on 4 L was 93-94% oxygen saturation. Urine output is decreased but has slowly improved. Oral intake is poor. Patient is afebrile and denies any chest pain or worsening shortness of breath. 08/19/2021 Patient is seen in follow-up this morning and mentation is slowly improving although patient continues to be lethargic and is continued on BiPAP at night and as needed and also currently maintained on 4 L via nasal cannula. Patient continues on IV Lasix drip with some improvement in urine output and will continue with indwelling Lacy catheter. Urine with urine culture was done and preliminary showing gram-negative bacilli with ID following and IV ceftriaxone being initiated. Patient's INR improved after vitamin K administration and will continue with Coumadin with pharmacy to dose. Patient is afebrile and denies any worsening shortness of breath or chest pain. Patient is asking if she can return home. Patient is a resident at [facility]. 08/20/2021 Patient is seen this morning and is more awake and alert and reports to feeling better and would like to go home. Discussed with patient about continuing on IV lasix and will need to transition to oral once kidney functions improve. Urine output has improved. Oral intake is poor and will add Megase. Discussed with dietitian. Patient also being switched to IV invanz with ID following for UTI as repeat urine remains growing gram negative. Will await cultures. Patient is afebrile. Patient denies chest pains. 08/23/2021 Patient is seen in follow-up this morning continues on 4 L via nasal cannula also continues on IV Lasix drip with nephrology following and kidney function slowly improving and urine output is improved and no plans for immediate renal replacement at this time. Chest x-ray today continues to show pulmonary edema and will continue on IV Lasix. Encouraged oral intake and patient also was maintained on breathing treatments. Patient continues on Coumadin with pharmacy to dose and INR was 1.4 today and recommend repeat labs and close monitoring. Patient continues with indwelling Lacy catheter and will continue. Infectious disease also following and urine continues to show ESBL and enterococcus patient is maintained on IV Invanz and will continue. Patient denies worsening shortness of breath or chest pain. Patient is afebrile. 08/24/2021 Patient continues on IV lasix drip with cardio, pulmonary, ID, and nephrology following. Patient is on IV invanz for esbl in the urine and will continue. Pat ient oral intake continues to be poor and will increase Megase. Encouraged oral intake. Patient is maintained on 4L via NC and bipap at night. Recommend to continue with lacy and strict intake and output. Patient is afebrile and denies chest pain or shortness of breath. Review of systems: Constitutional: reports of fatigue and weakness, no reports of fever, or chills Cardiovascular: No reports of chest pain or palpitations Respiratory: reports of shortness of breath with some improvement GI: No reports of nausea, no reports of of vomiting, no appetite : No reports of dysuria or retention, currently with indwelling catheter Neurovascular: reports of generalized weakness All medications have been reviewed Active Medications Acetaminophen (Acetaminophen Tab 325 Mg Tab) 650 mg PO Q6HR PRN PRN Reason: Mild Pain or Fever > 100.5 Last Admin: 08/18/21 08:46 Dose: 650 mg Albuterol/Ipratropium (Ipratropium-Albuterol 3 Ml Neb) 3 ml INHALATION RT-TID S Last Admin: 08/24/21 19:23 Dose: 3 ml Ascorbic Acid (Ascorbic Acid 500 Mg Tab) 500 mg PO DAILY@1700 [facility] Last Admin: 08/24/21 17:31 Dose: 500 mg Atorvastatin Calcium (Atorvastatin 20 Mg Tab) 20 mg PO HS [facility] Last Admin: 08/23/21 21:11 Dose: 20 mg Bisacodyl (Bisacodyl 10 Mg Supp) 10 mg RECTAL DAILY PRN PRN Reason: Constipation Calcium Carbonate (Calcium Carb-Vit D 500 Mg-5 Mcg Tab) 1 each PO DAILY@1700 [facility] Last Admin: 08/24/21 17:32 Dose: 1 each Calcium Carbonate/Glycine (Calcium Carbonate 500 Mg Chewable) 500 mg PO DAILY@1700 [facility] Last Admin: 08/24/21 17:31 Dose: 500 mg Cholecalciferol (Cholecalciferol 25 Mcg (1000 Iu) Tablet) 100 mcg PO DAILY@1200 [facility] Last Admin: 08/24/21 12:38 Dose: 100 mcg Cyanocobalamin (Cyanocobalamin 500 Mcg Tab) 500 mcg PO DAILY@1700 [facility] Last Admin: 08/24/21 17:32 Dose: 500 mcg Docusate Sodium (Docusate 100 Mg Cap) 100 mg PO DAILY@1000 [facility] Last Admin: 08/24/21 09:02 Dose: 100 mg Escitalopram Oxalate (Escitalopram 20 Mg Tab) 20 mg PO DAILY@1000 [facility] Last Admin: 08/24/21 09:02 Dose: 20 mg Ferrous Sulfate (Ferrous Sulfate 325 Mg Tab) 325 mg PO BID@1000,1700 [facility] Last Admin: 08/24/21 17:31 Dose: 325 mg Folic Acid (Folic Acid 1 Mg Tab) 0.5 mg PO DAILY@1000 [facility] Last Admin: 08/24/21 09:01 Dose: 0.5 mg Glipizide (Glipizide 2.5 Mg Tab) 2.5 mg PO DAILY@1000 [facility] Last Admin: 08/24/21 09:01 Dose: 2.5 mg Furosemide 100 mg/ Sodium (Chloride) 100 mls @ 15 mls/hr IV .Q6H40M [facility] Last Admin: 08/24/21 13:54 Dose: 15 mg/hr, 15 mls/hr Ertapenem 0.5 gm/ Sodium (Chloride) 50 mls @ 100 mls/hr IVPB DAILY [facility]; Pr otocol Last Admin: 08/24/21 09:23 Dose: 100 mls/hr Insulin Aspart (Insulin Aspart (Novolog) 100 Unit/Ml Vial) 0 unit SQ ACHS [facility]; Protocol Last Admin: 08/24/21 17:32 Dose: Not Given Lactobacillus Acidoph/Bulgaricus (Lactobacillus Acidoph & Bulgar 1 Each Packet) 1 each PO DAILY@1200 [facility] Last Admin: 08/24/21 12:38 Dose: 1 each Levothyroxine Sodium (Levothyroxine 88 Mcg Tab) 88 mcg PO DAILY@1000 [facility] Last Admin: 08/24/21 09:02 Dose: 88 mcg Lidocaine (Lidocaine 5% Ointment 50 Gm Jar) 1 applic TOPICAL HS PRN PRN Reason: WOUND PAIN Linagliptin (Linagliptin 5 Mg Tablet) 5 mg PO DAILY@1700 [facility] Last Admin: 08/24/21 17:31 Dose: 5 mg Magnesium Hydroxide (Magnesium Hydroxide 2,400 Mg/10 Ml Cup) 2,400 mg PO Q48H PRN PRN Reason: Constipation Megestrol Acetate (Megestrol 40 Mg Tab) 40 mg PO DAILY [facility] Last Admin: 08/24/21 09:02 Dose: 40 mg Methyl Salicylate (Methyl Salicylate-Menthol Oint (3 Oz Tube)) 1 applic TOPICAL DAILY PRN PRN Reason: pain Metolazone (Metolazone 5 Mg Tab) 5 mg PO BID [facility] Last Admin: 08/24/21 09:02 Dose: 5 mg Metoprolol Tartrate (Metoprolol Tartrate 50 Mg Tab) 50 mg PO TID [facility] Last Admin: 08/24/21 17:31 Dose: 50 mg Midodrine (Midodrine 5 Mg Tab) 10 mg PO AC-TID [facility] Last Admin: 08/24/21 17:31 Dose: 10 mg Miscellaneous Information (Warfarin Per Pharmacy) 1 each MISCELLANE DIRECTED PRN; Protocol PRN Reason: Per Protocol Multivitamins (Multivitamins, Thera 1 Each Tab) 1 each PO DAILY@1700 [facility] Last Admin: 08/24/21 17:31 Dose: 1 each Naloxone HCl (Naloxone 0.4 Mg/Ml 1 Ml Vial) 0.2 mg IV Q2M PRN PRN Reason: Opioid Reversal Nystatin (Nystatin 100,000 Unit/Gm Powd 15 Gm) 1 applic TOPICAL BID [facility]; Protocol Last Admin: 08/24/21 09:02 Dose: 1 applic Nystatin (Nystatin 100,000unit/Gm Cream 30 Gm Tube) 1 applic TOPICAL BID [facility] Last Admin: 08/24/21 09:03 Dose: 1 applic Pantoprazole Sodium (Pantoprazole 40 Mg Tablet) 40 mg PO HS@2200 [facility] Last Admin: 08/23/21 21:11 Dose: 40 mg Simethicone (Simethicone 80 Mg Chewable) 80 mg PO PC-TID PRN PRN Reason: UPPERGASTRIC DISTRESS Triamcinolone Acetonide (Triamcinolone 0.1% Cream 80 Gm Tube) 1 applic TOPICAL BID [facility] Last Admin: 08/24/21 09:03 Dose: 1 applic PHYSICAL EXAMINATION: GENERAL: The patient is alert and oriented x3, morbidly obese Well developed, well nourished. and on 4L via NC HEENT: Pupils are round and equally reacting to light. EOMI. no scleral icterus. No conjunctival pallor. Normocephalic, atraumatic. No pharyngeal erythema. No thyromegaly. CARDIOVASCULAR: S1 and S2 muffled PULMONARY: diminished breath sounds bilaterally with some crackles and scattered rhonchi noted. ABDOMEN: soft. Nontender on exam. obese. non-distended, normoactive bowel sounds. No palpable organomegaly. MUSCULOSKELETAL: No joint swelling or deformity. EXTREMITIES: No cyanosis, clubbing, lower extremity edema. Generalized edema noted throughout NEUROLOGICAL: Gross neurological examination did not reveal any focal deficits. Diffuse weakness SKIN: No rashes. Assessment: Atrial fibrillation with RVR new onset Congestive heart failure, acute exacerbation with preserved EF Acute urinary tract infection present on admission possibly secondary to urinary retention showing ESBL with enterococcus Morbid obesity with a BMI of 83.1 acute kidney injury Coagulopathy on coumadin COPD, acute exacerbation Diabetes mellitus, type 2 History of PE HIstory of esbl, MRSA Left hip wound GI prophylaxis DVT prophylaxis Full code Plan: Recommend to continue with current medications and management with cardiology following. Infectious disease following and continuing with IV invanz due to urine culture showing ESBL with enterococcus. Pulmonary also following and will continue on breathing inhalational treatments. INR 1.9 with pharmacy to dose as patient is on Coumadin. Recommend to continue telemetry monitoring. Patient weaning FI02 as tolerated and currently on 4L via NC and recommend to continue with Bipap from 8pm to 8am and as needed. patient is maintained on IV Lasix drip with close monitoring and recommend follow-up labs. Output improved and will continue lacy for now. Strict intake and output. Patient is a resident at [facility] and will be returning there once stabilized and discharged. Will discuss with case management/social work about having Bipap in the outpatient setting. Code status was addressed with patient and she wishes to remain full code. Due to multiple complex medical issues, prognosis is extremely guarded. The impression and plan of care has been dictated by nurse Debo pra ctitioner as directed. Dr. Negra MD I have performed a history and examination and MDM of this patient, discussed the same with the dictator, and agree with the dictator's assessment and plan as written ,documented as a scribe. Based on total visit time, I have performed more than 50% of the visit. Any additional findings or plans will be noted. Objective - Vital Signs Vital signs: Vital Signs Temp 98.2 F 08/24/21 07:50 Pulse 96 08/24/21 08:59 Resp 18 08/24/21 07:50 BP 126/87 08/24/21 07:50 Pulse Ox 96 08/24/21 07:50 FiO2 40 08/24/21 07:50 Intake & Output 08/23/21 08/24/21 08/24/21 18:59 06:59 18:59 Intake Total 305 149.5 100 Output Total 1125 925 Balance -820 -775.5 100 Weight 219.7 kg 217.6 kg Intake: Intake, IV Titration 185 89.5 100 Amount Furosemide 100 mg In 185 89.5 100 Sodium Chloride 0.9% 90 ml @ 15 MG/HR 15 mls/hr IV .Q6H40M [facility] Rx#: [id number] Oral 120 60 Output: Urine 1125 925 Uretheral (Lacy) 800 925 Other: Voiding Method Indwelling Catheter Indwelling Catheter - Labs CBC & Chem 7: 08/21/21 06:42 08/24/21 08:59 Labs: Abnormal Lab Results - Last 24 Hours (Table) 08/23/21 08/23/2108/23/22 Range/Units 08:50 08:50 11:44 PT 16.1 H (9.0-12.0) sec INR 1.6 H (<1.2) Sodium 135 L (137-145) mmol/L Chloride 86 L (98-107) mmol/L Carbon Dioxide 38 H (22-30) mmol/L BUN 77 H (7-17) mg/dL Creatinine 2.19 H (0.52-1.04) mg/dL Glucose 121 H (74-99) mg/dL POC Glucose (mg/dL) 125 H (75-99) mg/dL 08/23/21 08/24/21 08/24/21 Range/Units 20:29 05:58 08:59 PT 19.5 H (9.0-12.0) sec INR 1.9 H (<1.2) Sodium (137-145) mmol/L Chloride (98-107) mmol/L Carbon Dioxide (22-30) mmol/L BUN (7-17) mg/dL Creatinine (0.52-1.04) mg/dL Glucose (74-99) mg/dL POC Glucose (mg/dL) 115 H 100 H (75-99) mg/dL Microbiology - Last 24 Hours (Table) 08/18/21 09:12 Blood Culture - Preliminary Blood No Growth after 120 hours
[2021-08-24 20:19] LABS: Glucose,Whole Blood 105 mg/dL (75-99)
[2021-08-24] MEDS: PANTOPRAZOLE 40 MG TABLET PO SCH (20:59)
[2021-08-24] MEDS: ATORVASTATIN 20 MG TAB PO SCH (20:59)
[2021-08-25] MEDS: FUROSEMIDE 100 MG in SODIUM CHLORIDE 0.9% 90 ML IV SCH ×3 (03:30→20:24)
[2021-08-25 06:05] LABS: Glucose,Whole Blood 99 mg/dL (75-99)
[2021-08-25] MEDS: INSULIN ASPART (NovoLOG) 100 UNIT/ML VIAL SQ SCH ×4 (06:29→20:34)
[2021-08-25] MEDS: MIDODRINE 5 MG TAB PO SCH ×3 (06:30→17:44)
--- NOTE | 2021-08-25 07:22 | P.PN ---
Subjective Progress Note Date: 08/23/21 Principal diagnosis: Left lateral thigh wound/rash, groin Cutaneous candidiasis Patient is a 65-year-old female with multiple comorbidities morbid obesity presented to the hospital with increasing shortness of breath patient was also noticed to have a extensive bilateral groin area Cutaneous candidiasis and also an erythematous patch to the left lateral thigh area. On today's evaluation that is 08/23/2021, the patient continues to be afebrile, the patient is breathing comfortably on nasal cannula oxygen, the patient denies chest pain, did have occasional cough, the patient denies abdominal pain no diarrhea Objective - Vital Signs Vital signs: Vital Signs Temp 97.6 F 08/23/21 09:17 Pulse 83 08/23/21 12:00 Resp 18 08/23/21 12:00 BP 120/72 08/23/21 12:00 Pulse Ox 94 L 08/23/21 12:00 FiO2 40 08/23/21 07:15 Intake & Output 08/22/21 08/23/21 08/23/21 18:59 06:59 18:59 Intake Total 1607.75 493.0 205 Output Total 1525 975 Balance 82.75 -482.0 205 Weight 219.7 kg Intake: IV 200 300 .9 80 120 Furosemide 100 mg In 120 180 Sodium Chloride 0.9% 90 ml @ 15 MG/HR 15 mls/hr IV .Q6H40M [facility] Rx#: [id number] Intake, IV Titration 207.75 193.0 85 Amount Ertapenem 0.5 gm In 50 Sodium Chloride 0.9% 50 ml @ 100 mls/hr IVPB DAILY [facility] Rx#:[id number] Furosemide 100 mg In 157.75 193.0 85 Sodium Chloride 0.9% 90 ml @ 15 MG/HR 15 mls/hr IV .Q6H40M [facility] Rx#: [id number] Oral 1200 0 120 Output: Urine 1525 975 Uretheral (Claros) 650 975 Other: Voiding Method Indwelling Catheter Indwelling Catheter Indwelling Catheter - Exam GENERAL DESCRIPTION: An elderlyfemale lying in bed in no distress RESPIRATORY SYSTEM: Unlabored breathing , decreased breath sounds at bases HEART: S1 S2 regular rate and rhythm , ABDOMEN: Soft , no tenderness EXTREMITIES: Diffuse swelling bilateral lower extremity with an erythematous patch to left lateral thigh - Labs CBC & Chem 7: 08/21/21 06:42 08/24/21 08:59 Labs: Abnormal Lab Results - Last 24 Hours (Table) 08/22/21 08/22/21 08/23/21 Range/Units 16:18 20:25 06:09 PT (9.0-12.0) sec INR (<1.2) Sodium (137-145) mmol/L Chloride (98-107) mmol/L Carbon Dioxide (22-30) mmol/L BUN (7-17) mg/dL Creatinine (0.52-1.04) mg/dL Glucose (74-99) mg/dL POC Glucose (mg/dL) 121 H 125 H 112 H (75-99) mg/dL 08/23/21 08/23/21 08/23/21 Range/Units 08:50 08:50 11:44 PT 16.1 H (9.0-12.0) sec INR 1.6 H (<1.2) Sodium 135 L (137-145) mmol/L Chloride 86 L (98-107) mmol/L Carbon Dioxide 38 H (22-30) mmol/L BUN 77 H (7-17) mg/dL Creatinine 2.19 H (0.52-1.04) mg/dL Glucose 121 H (74-99) mg/dL POC Glucose (mg/dL) 125 H (75-99) mg/dL Microbiology - Last 24 Hours (Table) 08/18/21 09:12 Blood Culture - Preliminary Blood No Growth after 120 hours Assessment and Plan (1) Non-healing skin lesion Current Visit: No Status: Acute Code(s): L98.9 - DISORDER OF THE SKIN AND SUBCUTANEOUS TISSUE, UNSPECIFIED SNOMED Code(s): 39693410 Plan: 1patient with left lateral thigh wound with no evidence of any cellulitis and oozing could be related to the fluid overload state, patient to continue with the Mycolog cream applied twice a day. 2 Patient with bilateral groin area cutaneous candidiasis but no evidence of secondary cellulitis to continue continue with nystatin powder twice a day. 3-patient did have leukocytosis chest x-rays mostly bilateral diffuse infiltrate, CRP and procalcitonin mildly elevated 4- the patient urine has been finalized ESBL E. coli , patient repeat urine also grew ESBL and enterococcus, patient currently being treated with Invanz 500 mg daily and monitor clinical course closely Time with Patient: Less than 30
--- NOTE | 2021-08-25 07:25 | P.PN ---
Subjective Progress Note Date: 08/24/21 Principal diagnosis: Left lateral thigh wound/rash, groin Cutaneous candidiasis Patient is a 65-year-old female with multiple comorbidities morbid obesity presented to the hospital with increasing shortness of breath patient was also noticed to have a extensive bilateral groin area Cutaneous candidiasis and also an erythematous patch to the left lateral thigh area. On today's evaluation that is 08/24/2021, the patient denies any fever or chills, the patient is breathing comfortably on nasal cannula oxygen, the patient denies chest pain, did have occasional dry cough, the patient denies abdominal pain no diarrhea, no new symptoms Objective - Vital Signs Vital signs: Vital Signs Temp 98.2 F 08/24/21 07:50 Pulse 88 08/24/21 12:36 Resp 18 08/24/21 12:35 BP 100/66 08/24/21 12:35 Pulse Ox 99 08/24/21 12:35 FiO2 40 08/24/21 07:50 Intake & Output 08/23/21 08/24/21 08/24/21 18:59 06:59 18:59 Intake Total 305 149.5 100 Output Total 1125 925 650 Balance -820 -775.5 -550 Weight 219.7 kg 217.6 kg Intake: Intake, IV Titration 185 89.5 100 Amount Furosemide 100 mg In 185 89.5 100 Sodium Chloride 0.9% 90 ml @ 15 MG/HR 15 mls/hr IV .Q6H40M [facility] Rx#: [id number] Oral 120 60 Output: Urine 1125 925 650 Uretheral (Claros) 800 925 Other: Voiding Method Indwelling Catheter Indwelling Catheter Indwelling Catheter - Exam GENERAL DESCRIPTION: An elderlyfemale lying in bed in no distress RESPIRATORY SYSTEM: Unlabored breathing , decreased breath sounds at bases HEART: S1 S2 regular rate and rhythm , ABDOMEN: Soft , no tenderness EXTREMITIES: Diffuse swelling bilateral lower extremity with an erythematous patch to left lateral thigh - Labs CBC & Chem 7: 08/21/21 06:42 08/24/21 08:59 Labs: Abnormal Lab Results - Last 24 Hours (Table) 08/23/21 08/24/21 08/24/21 Range/Units 20:29 05:58 08:59 PT 19.5 H (9.0-12.0) sec INR 1.9 H (<1.2) Sodium (137-145) mmol/L Chloride (98-107) mmol/L Carbon Dioxide (22-30) mmol/L BUN (7-17) mg/dL Creatinine (0.52-1.04) mg/dL POC Glucose (mg/dL) 115 H 100 H (75-99) mg/dL 08/24/21 08/24/21 Range/Units 08:59 11:54 PT (9.0-12.0) sec INR (<1.2) Sodium 136 L (137-145) mmol/L Chloride 86 L (98-107) mmol/L Carbon Dioxide 40 H (22-30) mmol/L BUN 79 H (7-17) mg/dL Creatinine 2.23 H (0.52-1.04) mg/dL POC Glucose (mg/dL) 162 H (75-99) mg/dL Microbiology - Last 24 Hours (Table) 08/18/21 09:12 Blood Culture - Final Blood No Growth after 144 hours Assessment and Plan (1) Non-healing skin lesion Current Visit: No Status: Acute Code(s): L98.9 - DISORDER OF THE SKIN AND SUBCUTANEOUS TISSUE, UNSPECIFIED SNOMED Code(s): 16188118 Plan: 1patient with left lateral thigh wound with no evidence of any cellulitis and oozing could be related to the fluid overload state, patient to continue with the Mycolog cream applied twice a day. 2 Patient with bilateral groin area cutaneous candidiasis but no evidence of secondary cellulitis to continue continue with nystatin powder twice a day. 3-patient did have leukocytosis chest x-rays mostly bilateral diffuse infiltrate, CRP and procalcitonin mildly elevated 4- the patient did have some clinical improvement white count is trending down, urine has been finalized ESBL E. coli , patient repeat urine also grew ESBL and enterococcus, sensitivity on enterococcus is currently pending. Patient to continue with Invanz Time with Patient: Less than 30
[2021-08-25] MEDS: IPRATROPIUM-ALBUTEROL 3 ML NEB INHALATION SCH ×3 (08:39→19:35)
[2021-08-25 09:51] LABS: Basophils % (A) 0 %; Eosinophils # (A) 0.1 k/uL (0-0.7); Eosinophils % (A) 0 %; HCT 40.3 % (34.0-46.0); HGB 11.3 gm/dL (11.4-16.0); Hypochromasia Marked; Lymphocytes # (A) 2.2 k/uL (1.0-4.8); Lymphocytes % (A) 18 %; MCH 27.7 pg (25.0-35.0); MCHC 28.1 g/dL (31.0-37.0); MCV 98.6 fL (80.0-100.0); Macrocytosis Slight; Mean Platelet Volume 7.1; Monocytes # (A) 0.5 k/uL (0-1.0); Monocytes % (A) 4 %; Neutrophils # (A) 9.6 k/uL (1.3-7.7); Neutrophils % (A) 76 %; Platelet Count 323 k/uL (150-450); RBC 4.08 m/uL (3.80-5.40); WBC 12.6 k/uL (3.8-10.6)
[2021-08-25 09:56] LABS: INR 2.4 (<1.2); Prothrombin Time 23.7 sec (9.0-12.0)
[2021-08-25] MEDS: DOCUSATE 100 MG CAP PO SCH (10:01)
[2021-08-25] MEDS: LEVOTHYROXINE 88 MCG TAB PO SCH (10:01)
[2021-08-25] MEDS: METOPROLOL TARTRATE 50 MG TAB PO SCH ×3 (10:01→20:32)
[2021-08-25] MEDS: ESCITALOPRAM 20 MG TAB PO SCH (10:02)
[2021-08-25] MEDS: metOLazone 5 MG TAB PO SCH ×2 (10:02→20:34)
[2021-08-25] MEDS: FERROUS SULFATE 325 MG TAB PO SCH ×2 (10:02→17:43)
[2021-08-25] MEDS: MEGESTROL 40 MG TAB PO SCH ×2 (10:03→20:32)
[2021-08-25] MEDS: ERTAPENEM 0.5 GM in SODIUM CHLORIDE 0.9% 50 ML IVPB SCH (10:05)
[2021-08-25] MEDS: FOLIC ACID 1 MG TAB PO SCH (10:05)
[2021-08-25] MEDS: NYSTATIN 100,000 UNIT/GM POWD 15 GM TOPICAL SCH ×2 (10:06→20:37)
[2021-08-25] MEDS: TRIAMCINOLONE 0.1% CREAM 80 GM TUBE TOPICAL SCH ×2 (10:07→20:37)
[2021-08-25] MEDS: NYSTATIN 100,000UNIT/GM CREAM 30 GM TUBE TOPICAL SCH ×2 (10:07→20:37)
[2021-08-25 10:15] LABS: Calcium 9.4 mg/dL (8.4-10.2); Magnesium 2.2 mg/dL (1.6-2.3)
[2021-08-25 10:21] LABS: Potassium 4.5 mmol/L (3.5-5.1)
--- NOTE | 2021-08-25 10:40 | P.PN ---
Subjective Patient is seen in follow-up for acute kidney injury. Renal function a little better today. Nonoliguric. Maintained on Lasix drip and metolazone. Oral intake fair. Denies vomiting or diarrhea. Blood pressure on the lower side this morning. No chest pain or shortness of breath. On 4 L nasal cannula. No changes overnight. Vital signs stable. General: No acute distress. HEENT: Head exam is unremarkable. On nasal cannula. LUNGS: Breath sounds decreased. HEART: Rate and Rhythm are regular. ABDOMEN: Soft, obese. EXTREMITITES: 2+ edema. Objective - Vital Signs Vital signs: Vital Signs Temp 94.5 F L 08/25/21 08:00 Pulse 72 08/25/21 08:52 Resp 16 08/25/21 04:35 BP 90/51 08/25/21 08:00 Pulse Ox 95 08/25/21 08:00 FiO2 40 08/25/21 04:35 Intake & Output 08/24/21 08/25/21 08/25/21 18:59 06:59 18:59 Intake Total 172 432.75 240 Output Total 1200 850 Balance -1028 -417.25 240 Weight 219.2 kg Intake: Intake, IV Titration 172 194.75 Amount Furosemide 100 mg In 172 194.75 Sodium Chloride 0.9% 90 ml @ 15 MG/HR 15 mls/hr IV .Q6H40M [facility] Rx#: [id number] Oral 238 240 Output: Urine 1200 850 Uretheral (Claros) 850 Other: Voiding Method Indwelling Catheter Indwelling Catheter # Bowel Movements 1 - Labs CBC & Chem 7: 08/25/21 09:14 08/25/21 09:14 Labs: Abnormal Lab Results - Last 24 Hours (Table) 08/24/21 08/24/21 08/25/21 Range/Units 11:54 20:18 09:14 WBC (3.8-10.6) k/uL Hgb (11.4-16.0) gm/dL MCHC (31.0-37.0) g/dL RDW (11.5-15.5) % Neutrophils # (1.3-7.7) k/uL PT 23.7 H (9.0-12.0) sec INR 2.4 H (<1.2) Sodium (137-145) mmol/L Chloride (98-107) mmol/L Carbon Dioxide (22-30) mmol/L BUN (7-17) mg/dL Creatinine (0.52-1.04) mg/dL Glucose (74-99) mg/dL POC Glucose (mg/dL) 162 H 105 H (75-99) mg/dL 08/25/21 08/25/21 Range/Units 09:14 09:14 WBC 12.6 H (3.8-10.6) k/uL Hgb 11.3 L (11.4-16.0) gm/dL MCHC 28.1 L (31.0-37.0) g/dL RDW 16.0 H (11.5-15.5) % Neutrophils # 9.6 H (1.3-7.7) k/uL PT (9.0-12.0) sec INR (<1.2) Sodium 135 L (137-145) mmol/L Chloride 87 L (98-107) mmol/L Carbon Dioxide 39 H (22-30) mmol/L BUN 83 H (7-17) mg/dL Creatinine 2.01 H (0.52-1.04) mg/dL Glucose 101 H (74-99) mg/dL POC Glucose (mg/dL) (75-99) mg/dL Microbiology - Last 24 Hours (Table) 08/18/21 09:12 Blood Culture - Final Blood No Growth after 144 hours Assessment and Plan Plan: Assessment: 1. Acute kidney injury secondary to ATN secondary to cardiorenal syndrome and infection. Baseline creatinine near 1. Renal function fairly stable last few days. Creatinine 2.01 today. Nonoliguric. No proteinuria on UA done 08/18/2021. No hydronephrosis noted on kidney ultrasound. 2. Acute on chronic systolic CHF with ejection fraction of 40-45%. 3. Volume overload. Improving with diuresis. 4. E. coli and enterococcus UTI on antibiotics. 5. Diabetes mellitus. 6. A. fib with RVR maintained on metoprolol and Coumadin. Cardiology following. 7. Acute on chronic hypoxic and hypercapnic respiratory failure. 8. Morbid obesity. Plan: Maintain Lasix drip and metolazone. Low-salt diet and 1500 mL fluid restriction. Avoid nephrotoxins. Continue to monitor renal function and urine output. Continue to assess daily for need for renal replacement therapy. Urine output improved. No urgency at this time. Maintain midodrine. Hold for systolic blood pressure above 110. Check a.m. cortisol level. Repeat chest x-ray tomorrow morning.
[2021-08-25 11:25] VITALS: BMI 82.9
--- NOTE | 2021-08-25 11:35 | P.PN ---
Subjective Progress Note Date: 08/25/21 On 08/17/2021 patient seen in follow-up on selective care unit. She is awake and alert, in no acute distress, she has been wearing BiPAP intermittently, she is currently on nasal cannula, patient remains on IV Lasix at 50 mg/h. However her urine output has been very minimal, and patient still has significant generalized edema and significant lower extremity edema. Renal function continues to worsen and on today's labs BUN is 56, and creatinine is 2.05. Sodium is 134, potassium is 4.3. Urinalysis showed evidence of acute urinary tract infection. White blood cell count has increased and is up to 16.2, hemoglobin is 10.7. INR is 4.5. No nausea or vomiting, although her appetite is poor. No Complains of chest discomfort. No coughing or wheezing, no fever or chills. On 08/18/2021 patient seen in follow-up on selective care unit, she is awake, answering questions appropriately, she did wear BiPAP support pressures of 12 and 4, and FiO2 40% overnight, she is currently on 4 L of oxygen pulse ox is 93%, she is afebrile, blood pressure is been stable. She remains on Lasix infusion at 15 mg per hour, she is only in -48 cc negative fluid balance over the last 24 hours, she has produced 575 ML of urine, and remains significantly fluid overloaded with anasarca, significant peripheral edema. Chest x-ray today showed diffuse pleural parenchymal changes that are stable in appearance related to CHF. Today's labs have been reviewed, INR is 5.9, sodium is 133, potassium is 4.4, chloride is 88, CO2 is stable at 36, renal function continues to slightly worsen, and BUN is 57, creatinine is 2.22. Urinalysis showed evidence of urinary tract infection, urine culture is currently pending. On 08/19/2021 patient is seen in follow-up on selective care unit. He remains on Lasix drip at 15 mg per hour, however her urine output remains poor, and she is actually in 925 ML positive net fluid balance over the last 24 hours. We requested nursing staff to obtain a current weight, the patient is positive at 19.6 kilos since admission. She is significantly fluid overloaded with anasarca, and severe pitting edema of bilateral lower extremities, abdomen, thighs. Today's labs have been reviewed, showing white blood cell count of 15.6, hemoglobin of 11.2, she received vitamin K for INR of 5.9 yesterday, INR is currently down to 1.4, Coumadin remains on hold, pharmacy is dosing, sodium is 132, potassium is 4.3, chloride is 87, CO2 is 38, BUN is 60, creatinine is 2.29, pro calcitonin level is 0.30, urinalysis showed evidence of urinary tract infection, we will empirically place the patient on Rocephin, and urine culture has been sent., Currently showing gram-negative bacilli, final culture is pending On 08/24/2021 patient seen in follow-up on selective care unit, she is resting i n bed, have a drowsy, but arouses to voice, and answers questions appropriately. Patient has been wearing BiPAP support at night with FiO2 of 40%, and pressures of 12 and 5. Patient remains on Lasix infusion at 15 mg per hour, and Zaroxolyn 5 mg twice a day, and patient is in -1.6 L 24 hours, still has significant peripheral edema including bilateral lower extremities and abdominal wall, yesterday's chest x-ray showed similar cardiomegaly and diffuse interstitial patchy opacities possible patchy pulmonary edema, extensive opacity left mid and lower lung persistence likely combination of moderate pleural effusion with adjacent atelectasis. Labs have been reviewed, INR is 1.9, sodium is 136, potassium 3.6, chloride is 86, CO2 is 40, BUN is 79, and creatinine is 2.23. Also found to have enterococcus faecalis and ESBL E. coli urinary tract infection, and is currently on ertapenem for antibiotic coverage. She's had no fever or chills overnight, vital signs have been stable, ID service is following. 08/25/2021, the patient is being seen for a follow-up. This morning she is on a BiPAP at a setting of 12/5 cm of water and FiO2 of 40%. While off the BiPAP, the patient goes back on 40% oxygen by nasal cannula. Oral intake is fair. No nausea or vomiting. She is on Lasix drip at 15 mg an hour and Zaroxolyn 5 mg by mouth twice a day. She is already on Synthroid 88 g on a daily basis. This is her home dose.. 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 As such, the patient is diuresing. Electrolytes remain stable. The BUN is at 83 with a creatinine of 2.01 and the creatinine is slightly improved compared to yesterday and the sodium is at 135 with a potassium level of 4.5 and INR is at 2.4 for now. The white cell count of 12.6 and the patient remains on IV Invanz for ESBL E. coli and enterococcus. Alert and awake and communicating. Resting comfortably but for now. Body mass index is 82.9 the patient was found to be hypothermic this morning with a temperature of 94.7 the patient is receiving external warming at this point in time. Objective - Vital Signs Vital signs: Vital Signs Temp 94.5 F L 08/25/21 08:00 Pulse 72 08/25/21 08:52 Resp 16 08/25/21 04:35 BP 90/51 08/25/21 08:00 Pulse Ox 95 08/25/21 08:00 FiO2 40 08/25/21 04:35 Intake & Output 08/24/21 08/25/21 08/25/21 18:59 06:59 18:59 Intake Total 172 432.75 240 Output Total 1200 850 Balance -1028 -417.25 240 Weight 219.2 kg 219.2 kg Intake: Intake, IV Titration 172 194.75 Amount Furosemide 100 mg In 172 194.75 Sodium Chloride 0.9% 90 ml @ 15 MG/HR 15 mls/hr IV .Q6H40M [facility] Rx#: [id number] Oral 238 240 Output: Urine 1200 850 Uretheral (Claros) 850 Other: Voiding Method Indwelling Catheter Indwelling Catheter # Bowel Movements 1 - Exam GENERAL EXAM: Alert, very pleasant, 65-year-old morbidly obese white female, on nasal cannula and BiPAP support intermittently, comfortable in no apparent distress. HEAD: Normocephalic/atraumatic. EYES: Normal reaction of pupils, equal size. Conjunctiva pink, sclera white. NOSE: Clear with pink turbinates. THROAT: No erythema or exudates. NECK: No masses, no JVD, no thyroid enlargement, no adenopathy. CHEST: No chest wall deformity. Symmetrical expansion. LUNGS: Equal air entry with no crackles, wheeze, rhonchi or dullness. CVS: Regular rate and rhythm, normal S1 and S2, no gallops, no murmurs, no rubs ABDOMEN: Soft, obese, nontender No hepatosplenomegaly, normal bowel sounds, no guarding or rigidity. EXTREMITIES: No clubbing, 3+ lower extremity edema no cyanosis, 2+ pulses and upper and lower extremities. MUSCULOSKELETAL: Muscle strength and tone normal. SPINE: No scoliosis or deformity SKIN: No rashes CENTRAL NERVOUS SYSTEM: Alert and oriented -3. No focal deficits, tone is normal in all 4 extremities. PSYCHIATRIC: Alert and oriented -3. Appropriate affect. Intact judgment and insight. - Labs CBC & Chem 7: 08/25/21 09:14 08/25/21 09:14 Labs: Abnormal Lab Results - Last 24 Hours (Table) 08/24/21 08/24/21 08/25/21 Range/Units 11:54 20:18 09:14 WBC (3.8-10.6) k/uL Hgb (11.4-16.0) gm/dL MCHC (31.0-37.0) g/dL RDW (11.5-15.5) % Neutrophils # (1.3-7.7) k/uL PT 23.7 H (9.0-12.0) sec INR 2.4 H (<1.2) Sodium (137-145) mmol/L Chloride (98-107) mmol/L Carbon Dioxide (22-30) mmol/L BUN (7-17) mg/dL Creatinine (0.52-1.04) mg/dL Glucose (74-99) mg/dL POC Glucose (mg/dL) 162 H 105 H (75-99) mg/dL 08/25/21 08/25/21 Range/Units 09:14 09:14 WBC 12.6 H (3.8-10.6) k/uL Hgb 11.3 L (11.4-16.0) gm/dL MCHC 28.1 L (31.0-37.0) g/dL RDW 16.0 H (11.5-15.5) % Neutrophils # 9.6 H (1.3-7.7) k/uL PT (9.0-12.0) sec INR (<1.2) Sodium 135 L (137-145) mmol/L Chloride 87 L (98-107) mmol/L Carbon Dioxide 39 H (22-30) mmol/L BUN 83 H (7-17) mg/dL Creatinine 2.01 H (0.52-1.04) mg/dL Glucose 101 H (74-99) mg/dL POC Glucose (mg/dL) (75-99) mg/dL Microbiology - Last 24 Hours (Table) 08/18/21 Unknown Urine Culture - Final Urine,Voided Escherichia coli Enterococcus faecalis 08/18/21 09:12 Blood Culture - Final Blood No Growth after 144 hours Assessment and Plan Plan: Assessment: #1. Acute shortness of breath, acute on chronic with evidence of worsening CHF with diastolic dysfunction. Chest x-ray findings are consistent with CHF, cardiomegaly and pulmonary edema and increased lower extremity edema related to decompensated CHF., Clinically stable and the patient is currently on BiPAP at a pressure of 12/5 cm of water alternating with oxygen at 4 L per minute nasal cannula. #2. Acute on chronic hypoxic/hypercapnic respiratory failure on BiPAP alternating with nasal cannula #3. Acute kidney injury patient is oliguric, nephrology is on the case. Patient is on Lasix infusion in addition to Zaroxolyn, and is starting to produce improved urine output #4. CHF with probable biventricular diastolic heart failure with acute decompensation is significant volume overload #5. New onset atrial fibrillation, currently controlled with oral amiodarone and metoprolol #6. Chronic hypoxic respiratory failure #7. Morbid obesity with BMI of 73.5 kg/m #8. Chronic hypoxic and hypercapnic respiratory failure with a component of obesity hypoventilation syndrome #9. Hypertension #10. Previous history of pulmonary embolism on Coumadin #11. Hypothyroidism #12. Chronic lower extremity edema #13. Diabetes mellitus #14. Resident of an extended care facility #15. Acute urinary tract infection related to ESBL E. coli, and enterococcus faecalis, currently on ertapenem Plan: Patient's maintaining negative fluid balance , and the patient continues to produce adequate amount of urine output Continue Lasix infusion at 15 mg an hour and Zaroxolyn Continue antibiotics per ID service, currently on IV Invanz Continue BiPAP support at bedtime and as needed Daily weights, and accurate intake and output Daily labs including electrolytes and renal profile This edema is slightly improving and the volume status is gradually being optimized. She critical access hospital for now I strongly urged changing his CODE STATUS to DNR/DNI. For now she remains in a full code. Oral Intake is very poor at this point in time.
[2021-08-25 11:54] LABS: Glucose,Whole Blood 100 mg/dL (75-99)
--- NOTE | 2021-08-25 13:20 | P.PN ---
Subjective Progress Note Date: 08/25/21 This 65-year-old female was recently admitted with CHF and atrial fibrillation cardio following closely. Patient was maintained on IV Cardizem which is currently being transitioned IV amiodarone along with IV heparin. 2-D echo was ordered and pending at this time. Patient continues on 2 L of oxygen via nasal cannula at 90% oxygen pulse ox and continues to report shortness of breath and generalized weakness. Patient is morbidly obese with a BMI of 73.5 and resides in [place] Patient's blood pressure is elevated and will initiate Norvasc 10 mg daily and monitor closely. Infectious disease also consulted for a wound on the left hip along with pulmonary for COPD acute exacerbation. Patient denies any chest pain and patient is afebrile. 08/13/2021 Patient is seen today in follow up and continues to report shortness of breath. Cardiology and pulmonary and ID following. Patient is continued on bronchodilators and also continues on IV lasix. IV heparin continued and being started on coumadin. Transitioned to oral amiodarone and cardiology adjusting medications. Patient denies chest pain and is afebrile. 08/14/2021 Patient is seen this am and continues with cardiology and pulmonary following. Neprhology consulted for elevated kidney functions and patient is continued on IV lasix. US renal/bladder and pending. Patient continues with 3L via NC and breathing treatments along with IV heparin and coumadin with pharmacy to dose. Cardiology also following. Patient is afebrile and denies any chest pain. Patient reports not eating or drinking. 08/15/2021 Patient is seen today and continues with worsening renal functions and also some hypotension. Patient was maintained on IV heparin with coumadin and INR is 2.6 today and will dc heparin. Patient with hypotension and adding some midodrine and per nephro will give a 250ml bolus. Off IV lasix for now given worsening renal functions. Poor oral intake and decreased urine output from yesterday. Continue lacy catheter and encouraged oral intake. Patient is more lethargic today as well. 08/16/2021 Patient is seen in follow-up currently maintained on BiPAP and continues with shortness of breath. Multiple medical consultations following including pulmonary, nephrology, cardiology and patient continues with volume overload and is being started on IV Lasix. Patient with worsening kidney functions and decreased urine output although bladder and abdomen ultrasound showed no evidence of hydronephrosis. Patient also transition to Coumadin and INR is 4.0 and recommend to hold Coumadin and repeat labs. Sodium is 133 with a potassium of 4.3, BUN is 50, creatinine is 2.03. Patient not really tolerating any oral diet and difficult given the BiPAP is continuous at this time. Patient is anxious with family friend at the bedside. Patient is afebrile and denies any chest pain. Patient to continue with local wound care per ID with frequent position changes as well. 08/17/2021 Patient is seen this morning and continues on IV lasix drip with cardiology, pulmonary, and nephrology following. Patient is on bipap and continues with poor oral intake and minimal urine output. Indwelling catheter for strict monitoring of intake and output. Patient did have some brief periods of attempting nasal cannula and was able to take medications and have 2cups of applesauce per staff developer. WBC is elevated and CXR ordered. Patient is afebrile and denies chest pain. 08/18/2021 Patient is seen in follow-up this morning continues on IV Lasix drip with nephrology and cardiology following closely. Patient also continues on IV ceftriaxone and also has been transitioned and titrated down on oral amiodarone. Patient morning labs pending at this time and patient is normally on Coumadin although currently held as patient was having elevated INR. Will follow-up with morning labs. Patient is now off BiPAP this morning and maintained on 4 L was 93-94% oxygen saturation. Urine output is decreased but has slowly improved. Oral intake is poor. Patient is afebrile and denies any chest pain or worsening shortness of breath. 08/19/2021 Patient is seen in follow-up this morning and mentation is slowly improving although patient continues to be lethargic and is continued on BiPAP at night and as needed and also currently maintained on 4 L via nasal cannula. Patient continues on IV Lasix drip with some improvement in urine output and will continue with indwelling Lacy catheter. Urine with urine culture was done and preliminary showing gram-negative bacilli with ID following and IV ceftriaxone being initiated. Patient's INR improved after vitamin K administration and will continue with Coumadin with pharmacy to dose. Patient is afebrile and denies any worsening shortness of breath or chest pain. Patient is asking if she can return home. Patient is a resident at [facility]. 08/20/2021 Patient is seen this morning and is more awake and alert and reports to feeling better and would like to go home. Discussed with patient about continuing on IV lasix and will need to transition to oral once kidney functions improve. Urine output has improved. Oral intake is poor and will add Megase. Discussed with dietitian. Patient also being switched to IV invanz with ID following for UTI as repeat urine remains growing gram negative. Will await cultures. Patient is afebrile. Patient denies chest pains. 08/23/2021 Patient is seen in follow-up this morning continues on 4 L via nasal cannula also continues on IV Lasix drip with nephrology following and kidney function slowly improving and urine output is improved and no plans for immediate renal replacement at this time. Chest x-ray today continues to show pulmonary edema and will continue on IV Lasix. Encouraged oral intake and patient also was maintained on breathing treatments. Patient continues on Coumadin with pharmacy to dose and INR was 1.4 today and recommend repeat labs and close monitoring. Patient continues with indwelling Lacy catheter and will continue. Infectious disease also following and urine continues to show ESBL and enterococcus patient is maintained on IV Invanz and will continue. Patient denies worsening shortness of breath or chest pain. Patient is afebrile. 08/24/2021 Patient continues on IV lasix drip with cardio, pulmonary, ID, and nephrology following. Patient is on IV invanz for esbl in the urine and will continue. Pat ient oral intake continues to be poor and will increase Megase. Encouraged oral intake. Patient is maintained on 4L via NC and bipap at night. Recommend to continue with lacy and strict intake and output. Patient is afebrile and denies chest pain or shortness of breath. 08/25/2021 Patient is seen in follow-up today continues with close monitoring with cardiology, nephrology, pulmonary, and infectious disease following. Patient's INR is improved today 2.4 and will continue with Coumadin with pharmacy to dose. WBC trending down at 12.6 and hemoglobin is stable 11.3. patient is maintained on IV Lasix drip with nephrology following closely. Kidney functions trending down and currently 2.01 with a magnesium of 2.2. Sodium is 135 and potassium is 4.5. Encouraged oral intake and have increased Megace and will continue to monitor. She continues with BiPAP at night and 4 L via nasal cannula during the day. Patient is afebrile in fact per nursing staff patient oral temp this morning was 94.5 and currently being placed on Bear hugger. Review of systems: Constitutional: reports of fatigue and weakness, no reports of fever, or chills Cardiovascular: No reports of chest pain or palpitations Respiratory: reports of shortness of breath with some improvement GI: No reports of nausea, no reports of of vomiting, no appetite : No reports of dysuria or retention, currently with indwelling catheter Neurovascular: reports of generalized weakness All medications have been reviewed Active Medications Acetaminophen (Acetaminophen Tab 325 Mg Tab) 650 mg PO Q6HR PRN PRN Reason: Mild Pain or Fever > 100.5 Last Admin: 08/18/21 08:46 Dose: 650 mg Albuterol/Ipratropium (Ipratropium-Albuterol 3 Ml Neb) 3 ml INHALATION RT-TID [facility] Last Admin: 08/25/21 11:57 Dose: 3 ml Ascorbic Acid (Ascorbic Acid 500 Mg Tab) 500 mg PO DAILY@1700 [facility] Last Admin: 08/24/21 17:31 Dose: 500 mg Atorvastatin Calcium (Atorvastatin 20 Mg Tab) 20 mg PO HS [facility] Last Admin: 08/24/21 20:59 Dose: 20 mg Bisacodyl (Bisacodyl 10 Mg Supp) 10 mg RECTAL DAILY PRN PRN Reason: Constipation Calcium Carbonate (Calcium Carb-Vit D 500 Mg-5 Mcg Tab) 1 each PO DAILY@1700 [facility] Last Admin: 08/24/21 17:32 Dose: 1 each Calcium Carbonate/Glycine (Calcium Carbonate 500 Mg Chewable) 500 mg PO DAILY@1700 [facility] Last Admin: 08/24/21 17:31 Dose: 500 mg Cholecalciferol (Cholecalciferol 25 Mcg (1000 Iu) Tablet) 100 mcg PO DAILY@1200 [facility] Last Admin: 08/24/21 12:38 Dose: 100 mcg Cyanocobalamin (Cyanocobalamin 500 Mcg Tab) 500 mcg PO DAILY@1700 [facility] Last Admin: 08/24/21 17:32 Dose: 500 mcg Docusate Sodium (Docusate 100 Mg Cap) 100 mg PO DAILY@1000 [facility] Last Admin: 08/25/21 10:01 Dose: 100 mg Escitalopram Oxalate (Escitalopram 20 Mg Tab) 20 mg PO DAILY@1000 [facility] Last Admin: 08/25/21 10:02 Dose: 20 mg Ferrous Sulfate (Ferrous Sulfate 325 Mg Tab) 325 mg PO BID@1000,1700 [facility] Last Admin: 08/25/21 10:02 Dose: 325 mg Folic Acid (Folic Acid 1 Mg Tab) 0.5 mg PO DAILY@1000 [facility] Last Admin: 08/25/21 10:05 Dose: 0.5 mg Glipizide (Glipizide 2.5 Mg Tab) 2.5 mg PO DAILY@1000 [facility] Last Admin: 08/25/21 10:02 Dose: 2.5 mg Furosemide 100 mg/ Sodium (Chloride) 100 mls @ 15 mls/hr IV .Q6H40M [facility] Last Admin: 08/25/21 03:30 Dose: 15 mg/hr, 15 mls/hr Ertapenem 0.5 gm/ Sodium (Chloride) 50 mls @ 100 mls/hr IVPB DAILY [facility]; Protocol Last Admin: 08/25/21 10:05 Dose: 100 mls/hr Insulin Aspart (Insulin Aspart (Novolog) 100 Unit/Ml Vial) 0 unit SQ ACHS [facility]; Protocol Last Admin: 08/25/21 11:57 Dose: Not Given Lactobacillus Acidoph/Bulgaricus (Lactobacillus Acidoph & Bulgar 1 Each Packet) 1 each PO DAILY@1200 [facility] Last Admin: 08/24/21 12:38 Dose: 1 each Levothyroxine Sodium (Levothyroxine 88 Mcg Tab) 88 mcg PO DAILY@1000 [facility] Last Admin: 08/25/21 10:01 Dose: 88 mcg Lidocaine (Lidocaine 5% Ointment 50 Gm Jar) 1 applic TOPICAL HS PRN PRN Reason: WOUND PAIN Linagliptin (Linagliptin 5 Mg Tablet) 5 mg PO DAILY@1700 [facility] Last Admin: 08/24/21 17:31 Dose: 5 mg Magnesium Hydroxide (Magnesium Hydroxide 2,400 Mg/10 Ml Cup) 2,400 mg PO Q48H PRN PRN Reason: Constipation Megestrol Acetate (Megestrol 40 Mg Tab) 40 mg PO BID [facility] Methyl Salicylate (Methyl Salicylate-Menthol Oint (3 Oz Tube)) 1 applic TOPICAL DAILY PRN PRN Reason: pain Metolazone (Metolazone 5 Mg Tab) 5 mg PO BID [facility] Last Admin: 08/25/21 10:02 Dose: 5 mg Metoprolol Tartrate (Metoprolol Tartrate 50 Mg Tab) 50 mg PO TID [facility] Last Admin: 08/25/21 10:01 Dose: 50 mg Midodrine (Midodrine 5 Mg Tab) 10 mg PO AC-TID [facility] Last Admin: 08/25/21 06:30 Dose: Not Given Miscellaneous Information (Warfarin Per Pharmacy) 1 each MISCELLANE DIRECTED PRN; Protocol PRN Reason: Per Protocol Multivitamins (Multivitamins, Thera 1 Each Tab) 1 each PO DAILY@1700 [facility] Last Admin: 08/24/21 17:31 Dose: 1 each Naloxone HCl (Naloxone 0.4 Mg/Ml 1 Ml Vial) 0.2 mg IV Q2M PRN PRN Reason: Opioid Reversal Nystatin (Nystatin 100,000 Unit/Gm Powd 15 Gm) 1 applic TOPICAL BID [facility]; Protocol Last Admin: 08/25/21 10:06 Dose: 1 applic Nystatin (Nystatin 100,000unit/Gm Cream 30 Gm Tube) 1 applic TOPICAL BID [facility] Last Admin: 08/25/21 10:07 Dose: 1 applic Pantoprazole Sodium (Pantoprazole 40 Mg Tablet) 40 mg PO HS@2200 [facility] Last Admin: 08/24/21 20:59 Dose: 40 mg Simethicone (Simethicone 80 Mg Chewable) 80 mg PO PC-TID PRN PRN Reason: UPPERGASTRIC DISTRESS Triamcinolone Acetonide (Triamcinolone 0.1% Cream 80 Gm Tube) 1 applic TOPICAL BID [facility] Last Admin: 08/25/21 10:07 Dose: 1 applic Warfarin Sodium (Warfarin 2.5 Mg Tab) 2.5 mg PO ONCE@1800 ONE Stop: 08/25/21 18:01 PHYSICAL EXAMINATION: GENERAL: The patient is alert and oriented x3, morbidly obese Well developed, well nourished. and on 4L via [place] HEENT: Pupils are round and equally reacting to light. EOMI. no scleral icterus. No conjunctival pallor. Normocephalic, atraumatic. No pharyngeal erythema. No thyromegaly. CARDIOVASCULAR: S1 and S2 muffled PULMONARY: diminished breath sounds bilaterally with some scattered rhonchi noted. ABDOMEN: soft. Nontender on exam. obese. non-distended, normoactive bowel sounds. No palpable organomegaly. MUSCULOSKELETAL: No joint swelling or deformity. EXTREMITIES: No cyanosis, clubbing, lower extremity edema. Generalized edema noted throughout NEUROLOGICAL: Gross neurological examination did not reveal any focal deficits. Diffuse weakness SKIN: No rashes. Assessment: Atrial fibrillation with RVR new onset Congestive heart failure, acute exacerbation with preserved EF Acute urinary tract infection present on admission possibly secondary to urinary retention showing ESBL with enterococcus Morbid obesity with a BMI of 83.1 acute kidney injury Coagulopathy on coumadin COPD, acute exacerbation Diabetes mellitus, type 2 History of PE HIstory of esbl, MRSA Left hip wound GI prophylaxis DVT prophylaxis Full code Plan: Recommend to continue with current medications and management with cardiology following. Infectious disease following and continuing with IV invanz due to urine culture showing ESBL with enterococcus. Pulmonary also following and will continue on breathing inhalational treatments. INR is therapeutic today at 2.4 and will continue with pharmacy to dose as patient is on Coumadin. Recommend to continue telemetry monitoring. Patient weaning FI02 as tolerated and currently on 4L via NC and recommend to continue with Bipap from 8pm to 8am and as needed. patient is maintained on IV Lasix drip with close monitoring and recommend follow-up labs. Output improved and will continue lacy for now. Strict intake and output. Kidney functions slowly improving and creatinine is 2.01 with a BUN of 83. Patient is a resident at [facility] and will be returning there once stabilized and discharged. Will discuss with case management/social work about having Bipap in the outpatient setting. Code status was addressed with patient and she wishes to remain full code. Oral intake continues to be poor and have increased Megace and will continue with encouraging oral intake with nursing staff. Due to multiple complex medical issues, prognosis is extremely guarded. The impression and plan of care has been dictated by Shefali Becerra, nurse practitioner as directed. Dr. Negra MD I have performed a history and examination and MDM of this patient, discussed the same with the dictator, and agree with the dictator's assessment and plan as written ,documented as a scribe. Based on total visit time, I have performed more than 50% of the visit. Any additional findings or plans will be noted. Objective - Vital Signs Vital signs: Vital Signs Temp 97.4 F L 08/25/21 04:35 Pulse 69 08/25/21 04:35 Resp 16 08/25/21 04:35 BP 115/70 08/25/21 06:30 Pulse Ox 92 L 08/25/21 04:35 FiO2 40 08/25/21 04:35 Intake & Output 08/24/21 08/25/21 08/25/21 18:59 06:59 18:59 Intake Total 172 432.75 240 Output Total 1200 850 Balance -1028 -417.25 240 Weight 219.2 kg Intake: Intake, IV Titration 172 194.75 Amount Furosemide 100 mg In 172 194.75 Sodium Chloride 0.9% 90 ml @ 15 MG/HR 15 mls/hr IV .Q6H40M [facility] Rx#: [id number] Oral 238 240 Output: Urine 1200 850 Uretheral (Lacy) 850 Other: Voiding Method Indwelling Catheter Indwelling Catheter # Bowel Movements 1 - Labs CBC & Chem 7: 08/25/21 09:14 08/25/21 09:14 Labs: Abnormal Lab Results - Last 24 Hours (Table) 08/24/21 08/24/21 08/24/21 Range/Units 08:59 08:59 11:54 PT 19.5 H (9.0-12.0) sec INR 1.9 H (<1.2) Sodium 136 L (137-145) mmol/L Chloride 86 L (98-107) mmol/L Carbon Dioxide 40 H (22-30) mmol/L BUN 79 H (7-17) mg/dL Creatinine 2.23 H (0.52-1.04) mg/dL POC Glucose (mg/dL) 162 H (75-99) mg/dL 08/24/21 Range/Units 20:18 PT (9.0-12.0) sec INR (<1.2) Sodium (137-145) mmol/L Chloride (98-107) mmol/L Carbon Dioxide (22-30) mmol/L BUN (7-17) mg/dL Creatinine (0.52-1.04) mg/dL POC Glucose (mg/dL) 105 H (75-99) mg/dL Microbiology - Last 24 Hours (Table) 08/18/21 09:12 Blood Culture - Final Blood No Growth after 144 hours
[2021-08-25] MEDS: LACTOBACILLUS ACIDOPH & BULGAR 1 EACH PACKET PO SCH (15:03)
[2021-08-25 16:25] LABS: Glucose,Whole Blood 108 mg/dL (75-99)
[2021-08-25] MEDS: CYANOCOBALAMIN 500 MCG TAB PO SCH (17:42)
[2021-08-25] MEDS: CALCIUM CARBONATE 500 MG CHEWABLE PO SCH (17:42)
[2021-08-25] MEDS: LINAGLIPTIN 5 MG TABLET PO SCH (17:43)
[2021-08-25] MEDS: MULTIVITAMINS, THERA 1 EACH TAB PO SCH (17:43)
[2021-08-25] MEDS: CALCIUM CARB-VIT D 500 MG-5 MCG TAB PO SCH (17:43)
[2021-08-25] MEDS: ASCORBIC ACID 500 MG TAB PO SCH (17:43)
[2021-08-25] MEDS: CHOLECALCIFEROL 25 MCG (1000 IU) TABLET PO SCH (17:44)
[2021-08-25] MEDS ORDERED: WARFARIN 2.5 MG TAB PO ONE (18:00)
[2021-08-25 19:56] LABS: Glucose,Whole Blood 142 mg/dL (75-99)
[2021-08-25] MEDS: PANTOPRAZOLE 40 MG TABLET PO SCH (20:32)
[2021-08-25] MEDS: ATORVASTATIN 20 MG TAB PO SCH (20:32)
[2021-08-26] MEDS: FUROSEMIDE 100 MG in SODIUM CHLORIDE 0.9% 90 ML IV SCH ×4 (03:05→22:59)
[2021-08-26 06:00] LABS: Glucose,Whole Blood 119 mg/dL (75-99)
[2021-08-26] MEDS: INSULIN ASPART (NovoLOG) 100 UNIT/ML VIAL SQ SCH ×4 (06:16→20:36)
[2021-08-26] MEDS: MIDODRINE 5 MG TAB PO SCH ×3 (06:17→17:30)
[2021-08-26 06:52] LABS: INR 2.8 (<1.2); Prothrombin Time 27.5 sec (9.0-12.0)
[2021-08-26 08:12] LABS: Calcium 9.3 mg/dL (8.4-10.2); Potassium 4.1 mmol/L (3.5-5.1)
[2021-08-26] MEDS: FOLIC ACID 1 MG TAB PO SCH (08:35)
[2021-08-26] MEDS: metOLazone 5 MG TAB PO SCH ×2 (08:36→21:13)
[2021-08-26] MEDS: DOCUSATE 100 MG CAP PO SCH (08:36)
[2021-08-26] MEDS: ESCITALOPRAM 20 MG TAB PO SCH (08:36)
[2021-08-26] MEDS: MEGESTROL 40 MG TAB PO SCH ×2 (08:36→21:13)
[2021-08-26] MEDS: METOPROLOL TARTRATE 50 MG TAB PO SCH ×3 (08:36→20:36)
[2021-08-26] MEDS: FERROUS SULFATE 325 MG TAB PO SCH ×2 (08:36→17:28)
[2021-08-26] MEDS: LEVOTHYROXINE 88 MCG TAB PO SCH (08:37)
[2021-08-26] MEDS: ERTAPENEM 0.5 GM in SODIUM CHLORIDE 0.9% 50 ML IVPB SCH (08:37)
[2021-08-26] MEDS: NYSTATIN 100,000 UNIT/GM POWD 15 GM TOPICAL SCH ×2 (08:40→20:37)
[2021-08-26] MEDS: TRIAMCINOLONE 0.1% CREAM 80 GM TUBE TOPICAL SCH ×2 (08:41→20:37)
[2021-08-26] MEDS: NYSTATIN 100,000UNIT/GM CREAM 30 GM TUBE TOPICAL SCH ×2 (08:41→20:37)
[2021-08-26] MEDS: IPRATROPIUM-ALBUTEROL 3 ML NEB INHALATION SCH ×3 (09:08→20:41)
--- NOTE | 2021-08-26 09:35 | XR ---
EXAMINATION TYPE: XR chest 1V DATE OF EXAM: 08/26/2021 COMPARISON: 08/23/2021 HISTORY: Short of breath TECHNIQUE: Portable upright chest FINDINGS: Heart size is enlarged. Small left pleural effusion may be present. Right basilar infiltrat e is present in the pulmonary vasculature may be somewhat prominent. IMPRESSION: 1. Cardiomegaly with prominent pulmonary vascular markings. A left pleural effusion and right basila r infiltrate is present. Correlate for congestive heart failure. Findings may have slight improvement from comparison. Continued follow-up is recommended.
--- NOTE | 2021-08-26 10:26 | P.PN ---
Subjective Patient is seen in follow-up for acute kidney injury. Renal function fairly stable. Nonoliguric. Maintained on Lasix drip and metolazone. Oral intake fair. Denies vomiting or diarrhea. Blood pressure controlled. No chest pain or shortness of breath. On 4 L nasal cannula. No changes overnight. Vital signs stable. General: No acute distress. HEENT: Head exam is unremarkable. On nasal cannula. LUNGS: Breath sounds decreased. HEART: Rate and Rhythm are regular. ABDOMEN: Soft, obese. EXTREMITITES: 2+ edema. Objective - Vital Signs Vital signs: Vital Signs Temp 97.4 F L 08/26/21 08:00 Pulse 85 08/26/21 09:23 Resp 22 08/26/21 08:00 BP 122/64 08/26/21 08:00 Pulse Ox 95 08/26/21 09:11 FiO2 55 08/26/21 05:00 Intake & Output 08/25/21 08/26/21 08/26/21 18:59 06:59 18:59 Intake Total 670 100 83 Output Total 900 Balance 670 -800 83 Weight 219.2 kg 215.7 kg Intake: IV 90 Furosemide 100 mg In 90 Sodium Chloride 0.9% 90 ml @ 15 MG/HR 15 mls/hr IV .Q6H40M [facility] Rx#: [id number] Intake, IV Titration 100 100 83 Amount Furosemide 100 mg In 100 100 83 Sodium Chloride 0.9% 90 ml @ 15 MG/HR 15 mls/hr IV .Q6H40M [facility] Rx#: [id number] Oral 480 Output: Urine 900 Other: Voiding Method Indwelling Catheter Indwelling Catheter # Voids 1 # Bowel Movements 1 - Labs CBC & Chem 7: 08/25/21 09:14 08/26/21 06:15 Labs: Abnormal Lab Results - Last 24 Hours (Table) 08/25/21 08/25/21 08/25/21 Range/Units 11:51 16:23 19:55 PT (9.0-12.0) sec INR (<1.2) Chloride (98-107) mmol/L Carbon Dioxide (22-30) mmol/L BUN (7-17) mg/dL Creatinine (0.52-1.04) mg/dL Glucose (74-99) mg/dL POC Glucose (mg/dL) 100 H 108 H 142 H (75-99) mg/dL 06/09/22 06/09/22 06/09/22 Range/Units 05:59 06:15 06:15 PT 27.5 H (9.0-12.0) sec INR 2.8 H (<1.2) Chloride 86 L (98-107) mmol/L Carbon Dioxide 38 H (22-30) mmol/L BUN 87 H (7-17) mg/dL Creatinine 2.20 H (0.52-1.04) mg/dL Glucose 101 H (74-99) mg/dL POC Glucose (mg/dL) 119 H (75-99) mg/dL Microbiology - Last 24 Hours (Table) 08/18/21 Unknown Urine Culture - Final Urine,Voided Escherichia coli Enterococcus faecalis Assessment and Plan Plan: Assessment: 1. Acute kidney injury secondary to ATN secondary to cardiorenal syndrome and infection. Baseline creatinine near 1. Renal function fairly stable last few days. Creatinine 2.2 today. Nonoliguric. No proteinuria on UA done . No hydronephrosis noted on kidney ultrasound. 2. Acute on chronic systolic CHF with ejection fraction of 40-45%. 3. Volume overload. Improving with diuresis. 4. E. coli and enterococcus UTI on antibiotics. 5. Diabetes mellitus. 6. A. fib with RVR maintained on metoprolol and Coumadin. Cardiology following. 7. Acute on chronic hypoxic and hypercapnic respiratory failure. 8. Morbid obesity. Plan: Maintain Lasix drip and metolazone. Low-salt diet and 1500 mL fluid restriction. Avoid nephrotoxins. Continue to monitor renal function and urine output. Continue to assess daily for need for renal replacement therapy. Urine output improved. No urgency at this time. Maintain midodrine. Hold for systolic blood pressure above 110. Follow-up a.m. cortisol level. Chest x-ray reviewed.
--- NOTE | 2021-08-26 11:23 | P.PN ---
Subjective Progress Note Date: 08/26/21 On 08/17/2021 patient seen in follow-up on selective care unit. She is awake and alert, in no acute distress, she has been wearing BiPAP intermittently, she is currently on nasal cannula, patient remains on IV Lasix at 50 mg/h. However her urine output has been very minimal, and patient still has significant generalized edema and significant lower extremity edema. Renal function continues to worsen and on today's labs BUN is 56, and creatinine is 2.05. Sodium is 134, potassium is 4.3. Urinalysis showed evidence of acute urinary tract infection. White blood cell count has increased and is up to 16.2, hemoglobin is 10.7. INR is 4.5. No nausea or vomiting, although her appetite is poor. No Complains of chest discomfort. No coughing or wheezing, no fever or chills. On 08/18/2021 patient seen in follow-up on selective care unit, she is awake, answering questions appropriately, she did wear BiPAP support pressures of 12 and 4, and FiO2 40% overnight, she is currently on 4 L of oxygen pulse ox is 93%, she is afebrile, blood pressure is been stable. She remains on Lasix infusion at 15 mg per hour, she is only in -48 cc negative fluid balance over the last 24 hours, she has produced 575 ML of urine, and remains significantly fluid overloaded with anasarca, significant peripheral edema. Chest x-ray today showed diffuse pleural parenchymal changes that are stable in appearance related to CHF. Today's labs have been reviewed, INR is 5.9, sodium is 133, potassium is 4.4, chloride is 88, CO2 is stable at 36, renal function continues to slightly worsen, and BUN is 57, creatinine is 2.22. Urinalysis showed evidence of urinary tract infection, urine culture is currently pending. On 08/19/2021 patient is seen in follow-up on selective care unit. He remains on Lasix drip at 15 mg per hour, however her urine output remains poor, and she is actually in 925 ML positive net fluid balance over the last 24 hours. We requested nursing staff to obtain a current weight, the patient is positive at 19.6 kilos since admission. She is significantly fluid overloaded with anasarca, and severe pitting edema of bilateral lower extremities, abdomen, thighs. Today's labs have been reviewed, showing white blood cell count of 15.6, hemoglobin of 11.2, she received vitamin K for INR of 5.9 yesterday, INR is currently down to 1.4, Coumadin remains on hold, pharmacy is dosing, sodium is 132, potassium is 4.3, chloride is 87, CO2 is 38, BUN is 60, creatinine is 2.29, pro calcitonin level is 0.30, urinalysis showed evidence of urinary tract infection, we will empirically place the patient on Rocephin, and urine culture has been sent., Currently showing gram-negative bacilli, final culture is pending On 08/24/2021 patient seen in follow-up on selective care unit, she is resting i n bed, have a drowsy, but arouses to voice, and answers questions appropriately. Patient has been wearing BiPAP support at night with FiO2 of 40%, and pressures of 12 and 5. Patient remains on Lasix infusion at 15 mg per hour, and Zaroxolyn 5 mg twice a day, and patient is in -1.6 L 24 hours, still has significant peripheral edema including bilateral lower extremities and abdominal wall, yesterday's chest x-ray showed similar cardiomegaly and diffuse interstitial patchy opacities possible patchy pulmonary edema, extensive opacity left mid and lower lung persistence likely combination of moderate pleural effusion with adjacent atelectasis. Labs have been reviewed, INR is 1.9, sodium is 136, potassium 3.6, chloride is 86, CO2 is 40, BUN is 79, and creatinine is 2.23. Also found to have enterococcus faecalis and ESBL E. coli urinary tract infection, and is currently on ertapenem for antibiotic coverage. She's had no fever or chills overnight, vital signs have been stable, ID service is following. 08/25/2021, the patient is being seen for a follow-up. This morning she is on a BiPAP at a setting of 12/5 cm of water and FiO2 of 40%. While off the BiPAP, the patient goes back on 40% oxygen by nasal cannula. Oral intake is fair. No nausea or vomiting. She is on Lasix drip at 15 mg an hour and Zaroxolyn 5 mg by mouth twice a day. She is already on Synthroid 88 g on a daily basis. This is her home dose.. 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 As such, the patient is diuresing. Electrolytes remain stable. The BUN is at 83 with a creatinine of 2.01 and the creatinine is slightly improved compared to yesterday and the sodium is at 135 with a potassium level of 4.5 and INR is at 2.4 for now. The white cell count of 12.6 and the patient remains on IV Invanz for ESBL E. coli and enterococcus. Alert and awake and communicating. Resting comfortably but for now. Body mass index is 82.9 the patient was found to be hypothermic this morning with a temperature of 94.7 the patient is receiving external warming at this point in time. 9 2021, the patient is alert and awake and communicating on 4 L of O2 nasal cannula. She has also a BiPAP at standby. She remains on Lasix 15 mg an hour Lasix drip in addition to Zaroxolyn 5 mg by mouth twice a day. She is producing urine output. Her renal function is stable with a creatinine of 2.2 and a BUN of 81. INR is at 2.8. Sodium is at 137 with a potassium level of 4.1. Serum bicarb is at 38. Fluid balance has been -1.4 L over the past 24 hours. There is improvement in the volume status. There is improvement in lower extremity edema and abdominal edema. The patient is taking her sure shakes and she is able to swallow without any major difficulties. She did have some hypothermic yesterday which improved. He remains on IV Invanz for E. coli in her urine and enterococcus. Repeat chest x-ray shows residual pulmonary vessel congestion and interstitial edema along with cardiomegaly although slightly improved compared to the earlier chest x-ray from 08/23/2021. Objective - Vital Signs Vital signs: Vital Signs Temp 97.4 F L 08/26/21 08:00 Pulse 85 08/26/21 09:23 Resp 22 08/26/21 08:00 BP 122/64 08/26/21 08:00 Pulse Ox 95 08/26/21 09:11 FiO2 55 08/26/21 05:00 Intake & Output 08/25/21 08/26/21 08/26/21 18:59 06:59 18:59 Intake Total 670 100 83 Output Total 900 Balance 670 -800 83 Weight 219.2 kg 215.7 kg Intake: IV 90 Furosemide 100 mg In 90 Sodium Chloride 0.9% 90 ml @ 15 MG/HR 15 mls/hr IV .Q6H40M NOLAN Rx#: [id number] Intake, IV Titration 100 100 83 Amount Furosemide 100 mg In 100 100 83 Sodium Chloride 0.9% 90 ml @ 15 MG/HR 15 mls/hr IV .Q6H40M NOLAN Rx#: [id number] Oral 480 Output: Urine 900 Other: Voiding Method Indwelling Catheter Indwelling Catheter # Voids 1 # Bowel Movements 1 - Exam GENERAL EXAM: Alert, very pleasant, 65-year-old morbidly obese white female, on nasal cannula and BiPAP support intermittently, comfortable in no apparent distress. HEAD: Normocephalic/atraumatic. EYES: Normal reaction of pupils, equal size. Conjunctiva pink, sclera white. NOSE: Clear with pink turbinates. THROAT: No erythema or exudates. NECK: No masses, no JVD, no thyroid enlargement, no adenopathy. CHEST: No chest wall deformity. Symmetrical expansion. LUNGS: Equal air entry with no crackles, wheeze, rhonchi or dullness. CVS: Regular rate and rhythm, normal S1 and S2, no gallops, no murmurs, no rubs ABDOMEN: Soft, obese, nontender No hepatosplenomegaly, normal bowel sounds, no guarding or rigidity. EXTREMITIES: No clubbing, 3+ lower extremity edema no cyanosis, 2+ pulses and upper and lower extremities. MUSCULOSKELETAL: Muscle strength and tone normal. SPINE: No scoliosis or deformity SKIN: No rashes CENTRAL NERVOUS SYSTEM: Alert and oriented -3. No focal deficits, tone is normal in all 4 extremities. PSYCHIATRIC: Alert and oriented -3. Appropriate affect. Intact judgment and insight. - Labs CBC & Chem 7: 08/25/21 09:14 08/26/21 06:15 Labs: Abnormal Lab Results - Last 24 Hours (Table) 08/25/21 08/25/21 08/25/21 Range/Units 11:51 16:23 19:55 PT (9.0-12.0) sec INR (<1.2) Chloride (98-107) mmol/L Carbon Dioxide (22-30) mmol/L BUN (7-17) mg/dL Creatinine (0.52-1.04) mg/dL Glucose (74-99) mg/dL POC Glucose (mg/dL) 100 H 108 H 142 H (75-99) mg/dL 08/26/21 08/26/21 08/26/21 Range/Units 05:59 06:15 06:15 PT 27.5 H (9.0-12.0) sec INR 2.8 H (<1.2) Chloride 86 L (98-107) mmol/L Carbon Dioxide 38 H (22-30) mmol/L BUN 87 H (7-17) mg/dL Creatinine 2.20 H (0.52-1.04) mg/dL Glucose 101 H (74-99) mg/dL POC Glucose (mg/dL) 119 H (75-99) mg/dL Microbiology - Last 24 Hours (Table) 08/18/21 Unknown Urine Culture - Final Urine,Voided Escherichia coli Enterococcus faecalis Assessment and Plan Plan: Assessment: #1. Acute shortness of breath, acute on chronic with evidence of worsening CHF with diastolic dysfunction. Chest x-ray findings are consistent with CHF, cardiomegaly and pulmonary edema and increased lower extremity edema related to decompensated CHF., Clinically stable and the patient is currently on BiPAP at a pressure of 12/5 cm of water alternating with oxygen at 4 L per minute nasal cannula. The patient remains on Lasix drip and Zaroxolyn and the patient is gradually improving with improvement in the volume status. We'll monitor the renal function and electrolytes very closely. Noted the electrolytes. The patient's creatinine is at 2.2 I will continue to diurese this patient. Nephritis on the case. #2. Acute on chronic hypoxic/hypercapnic respiratory failure on BiPAP alternating with nasal cannula #3. Acute kidney injury patient is oliguric, nephrology is on the case. Patient is on Lasix infusion in addition to Zaroxolyn, and is starting to produce improved urine output #4. CHF with probable biventricular diastolic heart failure with acute decompensation is significant volume overload #5. New onset atrial fibrillation, currently controlled with oral amiodarone and metoprolol #6. Chronic hypoxic respiratory failure #7. Morbid obesity with BMI of 73.5 kg/m #8. Chronic hypoxic and hypercapnic respiratory failure with a component of obesity hypoventilation syndrome #9. Hypertension #10. Previous history of pulmonary embolism on Coumadin #11. Hypothyroidism #12. Chronic lower extremity edema #13. Diabetes mellitus #14. Resident of an extended care facility #15. Acute urinary tract infection related to ESBL E. coli, and enterococcus faecalis, currently on ertapenem Plan: We'll continue same treatment Patient's maintaining negative fluid balance , and the patient continues to produce adequate amount of urine output Continue Lasix infusion at 15 mg an hour and Zaroxolyn Continue antibiotics per ID service, currently on IV Invanz Continue BiPAP support at bedtime and as needed Daily weights, and accurate intake and output Daily labs including electrolytes and renal profile This edema is slightly improving and the volume status is gradually being optimized. [facility] for now I strongly urged changing his CODE STATUS to DNR/DNI.
[2021-08-26 11:40] LABS: Glucose,Whole Blood 128 mg/dL (75-99)
[2021-08-26] MEDS: LACTOBACILLUS ACIDOPH & BULGAR 1 EACH PACKET PO SCH (12:41)
[2021-08-26] MEDS: CHOLECALCIFEROL 25 MCG (1000 IU) TABLET PO SCH (12:41)
--- NOTE | 2021-08-26 13:34 | P.CN ---
Psychiatric Consult - . Consult date: 08/26/21 Consult:: 08/26/21 13:32 Superintendent Of Generation did not see patient however did speak with Dr. Brush who did a full psychiatric evaluation today on the patient. Dr Brush did inform me that the patient DOES NOT have general decision making capacity at this time. Full psych consultation note to follow from Dr Brush. Thank you
[2021-08-26 14:28] LABS: Magnesium 2.2 mg/dL (1.6-2.3)
[2021-08-26 16:22] LABS: Glucose,Whole Blood 140 mg/dL (75-99)
[2021-08-26] MEDS: CALCIUM CARB-VIT D 500 MG-5 MCG TAB PO SCH (17:29)
[2021-08-26] MEDS: CALCIUM CARBONATE 500 MG CHEWABLE PO SCH (17:29)
[2021-08-26] MEDS: MULTIVITAMINS, THERA 1 EACH TAB PO SCH (17:29)
[2021-08-26] MEDS: CYANOCOBALAMIN 500 MCG TAB PO SCH (17:29)
[2021-08-26] MEDS: ASCORBIC ACID 500 MG TAB PO SCH (17:29)
[2021-08-26] MEDS: LINAGLIPTIN 5 MG TABLET PO SCH (17:29)
[2021-08-26] MEDS ORDERED: WARFARIN 2 MG TAB PO ONE (18:00)
--- NOTE | 2021-08-26 20:22 | P.PN ---
Subjective Progress Note Date: 08/26/21 This 65-year-old female was recently admitted with CHF and atrial fibrillation cardio following closely. Patient was maintained on IV Cardizem which is currently being transitioned IV amiodarone along with IV heparin. 2-D echo was ordered and pending at this time. Patient continues on 2 L of oxygen via nasal cannula at 90% oxygen pulse ox and continues to report shortness of breath and generalized weakness. Patient is morbidly obese with a BMI of 73.5 and resides in [place] Patient's blood pressure is elevated and will initiate Norvasc 10 mg daily and monitor closely. Infectious disease also consulted for a wound on the left hip along with pulmonary for COPD acute exacerbation. Patient denies any chest pain and patient is afebrile. 08/13/2021 Patient is seen today in follow up and continues to report shortness of breath. Cardiology and pulmonary and ID following. Patient is continued on bronchodilators and also continues on IV lasix. IV heparin continued and being started on coumadin. Transitioned to oral amiodarone and cardiology adjusting medications. Patient denies chest pain and is afebrile. 08/14/2021 Patient is seen this am and continues with cardiology and pulmonary following. Neprhology consulted for elevated kidney functions and patient is continued on IV lasix. US renal/bladder and pending. Patient continues with 3L via NC and breathing treatments along with IV heparin and coumadin with pharmacy to dose. Cardiology also following. Patient is afebrile and denies any chest pain. Patient reports not eating or drinking. 08/15/2021 Patient is seen today and continues with worsening renal functions and also some hypotension. Patient was maintained on IV heparin with coumadin and INR is 2.6 today and will dc heparin. Patient with hypotension and adding some midodrine and per nephro will give a 250ml bolus. Off IV lasix for now given worsening renal functions. Poor oral intake and decreased urine output from yesterday. Continue lacy catheter and encouraged oral intake. Patient is more lethargic today as well. 08/16/2021 Patient is seen in follow-up currently maintained on BiPAP and continues with shortness of breath. Multiple medical consultations following including pulmonary, nephrology, cardiology and patient continues with volume overload and is being started on IV Lasix. Patient with worsening kidney functions and decreased urine output although bladder and abdomen ultrasound showed no evidence of hydronephrosis. Patient also transition to Coumadin and INR is 4.0 and recommend to hold Coumadin and repeat labs. Sodium is 133 with a potassium of 4.3, BUN is 50, creatinine is 2.03. Patient not really tolerating any oral diet and difficult given the BiPAP is continuous at this time. Patient is anxious with family friend at the bedside. Patient is afebrile and denies any chest pain. Patient to continue with local wound care per ID with frequent position changes as well. 08/17/2021 Patient is seen this morning and continues on IV lasix drip with cardiology, pulmonary, and nephrology following. Patient is on bipap and continues with poor oral intake and minimal urine output. Indwelling catheter for strict monitoring of intake and output. Patient did have some brief periods of attempting nasal cannula and was able to take medications and have 2cups of applesauce per staff accountant. WBC is elevated and CXR ordered. Patient is afebrile and denies chest pain. 08/18/2021 Patient is seen in follow-up this morning continues on IV Lasix drip with nephrology and cardiology following closely. Patient also continues on IV ceftriaxone and also has been transitioned and titrated down on oral amiodarone. Patient morning labs pending at this time and patient is normally on Coumadin although currently held as patient was having elevated INR. Will follow-up with morning labs. Patient is now off BiPAP this morning and maintained on 4 L was 93-94% oxygen saturation. Urine output is decreased but has slowly improved. Oral intake is poor. Patient is afebrile and denies any chest pain or worsening shortness of breath. 08/19/2021 Patient is seen in follow-up this morning and mentation is slowly improving although patient continues to be lethargic and is continued on BiPAP at night and as needed and also currently maintained on 4 L via nasal cannula. Patient continues on IV Lasix drip with some improvement in urine output and will continue with indwelling Lacy catheter. Urine with urine culture was done and preliminary showing gram-negative bacilli with ID following and IV ceftriaxone being initiated. Patient's INR improved after vitamin K administration and will continue with Coumadin with pharmacy to dose. Patient is afebrile and denies any worsening shortness of breath or chest pain. Patient is asking if she can return home. Patient is a resident at [facility]. 08/20/2021 Patient is seen this morning and is more awake and alert and reports to feeling better and would like to go home. Discussed with patient about continuing on IV lasix and will need to transition to oral once kidney functions improve. Urine output has improved. Oral intake is poor and will add Megase. Discussed with dietitian. Patient also being switched to IV invanz with ID following for UTI as repeat urine remains growing gram negative. Will await cultures. Patient is afebrile. Patient denies chest pains. 08/23/2021 Patient is seen in follow-up this morning continues on 4 L via nasal cannula also continues on IV Lasix drip with nephrology following and kidney function slowly improving and urine output is improved and no plans for immediate renal replacement at this time. Chest x-ray today continues to show pulmonary edema and will continue on IV Lasix. Encouraged oral intake and patient also was maintained on breathing treatments. Patient continues on Coumadin with pharmacy to dose and INR was 1.4 today and recommend repeat labs and close monitoring. Patient continues with indwelling Lacy catheter and will continue. Infectious disease also following and urine continues to show ESBL and enterococcus patient is maintained on IV Invanz and will continue. Patient denies worsening shortness of breath or chest pain. Patient is afebrile. 08/24/2021 Patient continues on IV lasix drip with cardio, pulmonary, ID, and nephrology following. Patient is on IV invanz for esbl in the urine and will continue. Pat ient oral intake continues to be poor and will increase Megase. Encouraged oral intake. Patient is maintained on 4L via NC and bipap at night. Recommend to continue with lacy and strict intake and output. Patient is afebrile and denies chest pain or shortness of breath. 08/25/2021 Patient is seen in follow-up today continues with close monitoring with cardiology, nephrology, pulmonary, and infectious disease following. Patient's INR is improved today 2.4 and will continue with Coumadin with pharmacy to dose. WBC trending down at 12.6 and hemoglobin is stable 11.3. patient is maintained on IV Lasix drip with nephrology following closely. Kidney functions trending down and currently 2.01 with a magnesium of 2.2. Sodium is 135 and potassium is 4.5. Encouraged oral intake and have increased Megace and will continue to monitor. She continues with BiPAP at night and 4 L via nasal cannula during the day. Patient is afebrile in fact per nursing staff patient oral temp this morning was 94.5 and currently being placed on Bear hugger. 08/26/2021 Patient is seen this morning and temperature has normalized and no longer with the bare hugger. Patient continues on IV lasix drip with continued volume overload with some minimal improvement in edema. ID following and maintained on IV abx. Nephrology following and cr is stable at 2.2 and lacy catheter is being discontinued. Psychiatry consulted to assess capacity to make decisions. Patient is afebrile and continues with poor oral intake. Patient is consuming her ensures BID. Overall prognosis is poor and guarded. Code status discussed with cousin Kathe and two close friends. Patient denies worsening shortness of breath or chest pains. Review of systems: Constitutional: reports of fatigue and weakness, no reports of fever, or chills Cardiovascular: No reports of chest pain or palpitations Respiratory: reports of shortness of breath with some improvement GI: No reports of nausea, no reports of of vomiting, no appetite : No reports of dysuria or retention, currently with indwelling catheter Neurovascular: reports of generalized weakness All medications have been reviewed Active Medications Acetaminophen (Acetaminophen Tab 325 Mg Tab) 650 mg PO Q6HR PRN PRN Reason: Mild Pain or Fever > 100.5 Last Admin: 08/18/21 08:46 Dose: 650 mg Albuterol/Ipratropium (Ipratropium-Albuterol 3 Ml Neb) 3 ml INHALATION RT-TID [facility] Last Admin: 08/26/21 12:49 Dose: 3 ml Ascorbic Acid (Ascorbic Acid 500 Mg Tab) 500 mg PO DAILY@1700 [facility] Last Admin: 08/26/21 17:29 Dose: 500 mg Atorvastatin Calcium (Atorvastatin 20 Mg Tab) 20 mg PO HS [facility] Last Admin: 08/25/21 20:32 Dose: 20 mg Bisacodyl (Bisacodyl 10 Mg Supp) 10 mg RECTAL DAILY PRN PRN Reason: Constipation Calcium Carbonate (Calcium Carb-Vit D 500 Mg-5 Mcg Tab) 1 each PO DAILY@1700 [facility] Last Admin: 08/26/21 17:29 Dose: 1 each Calcium Carbonate/Glycine (Calcium Carbonate 500 Mg Chewable) 500 mg PO DAILY@1700 [facility] Last Admin: 08/26/21 17:29 Dose: 500 mg Cholecalciferol (Cholecalciferol 25 Mcg (1000 Iu) Tablet) 100 mcg PO DAILY@1200 [facility] Last Admin: 08/26/21 12:41 Dose: 100 mcg Cyanocobalamin (Cyanocobalamin 500 Mcg Tab) 500 mcg PO DAILY@1700 [facility] Last Admin: 08/26/21 17:29 Dose: 500 mcg Docusate Sodium (Docusate 100 Mg Cap) 100 mg PO DAILY@1000 [facility] Last Admin: 08/26/21 08:36 Dose: 100 mg Escitalopram Oxalate (Escitalopram 20 Mg Tab) 20 mg PO DAILY@1000 [facility] Last Admin: 08/26/21 08:36 Dose: 20 mg Ferrous Sulfate (Ferrous Sulfate 325 Mg Tab) 325 mg PO BID@1000,1700 [facility] Last Admin: 08/26/21 17:28 Dose: 325 mg Folic Acid (Folic Acid 1 Mg Tab) 0.5 mg PO DAILY@1000 [facility] Last Admin: 08/26/21 08:35 Dose: 0.5 mg Glipizide (Glipizide 2.5 Mg Tab) 2.5 mg PO DAILY@1000 [facility] Last Admin: 08/26/21 08:36 Dose: 2.5 mg Furosemide 100 mg/ Sodium (Chloride) 100 mls @ 15 mls/hr IV .Q6H40M [facility] Last Admin: 08/26/21 17:41 Dose: 15 mg/hr, 15 mls/hr Ertapenem 0.5 gm/ Sodium (Chloride) 50 mls @ 100 mls/hr IVPB DAILY [facility]; Protocol Last Admin: 08/26/21 08:37 Dose: 100 mls/hr Insulin Aspart (Insulin Aspart (Novolog) 100 Unit/Ml Vial) 0 unit SQ ACHS [facility]; Protocol Last Admin: 08/26/21 17:29 Dose: Not Given Lactobacillus Acidoph/Bulgaricus (Lactobacillus Acidoph & Bulgar 1 Each Packet) 1 each PO DAILY@1200 [facility] Last Admin: 08/26/21 12:41 Dose: 1 each Levothyroxine Sodium (Levothyroxine 88 Mcg Tab) 88 mcg PO DAILY@1000 [facility] Last Admin: 08/26/21 08:37 Dose: 88 mcg Lidocaine (Lidocaine 5% Ointment 50 Gm Jar) 1 applic TOPICAL HS PRN PRN Reason: WOUND PAIN Linagliptin (Linagliptin 5 Mg Tablet) 5 mg PO DAILY@1700 [facility] Last Admin: 08/26/21 17:29 Dose: Not Given Magnesium Hydroxide (Magnesium Hydroxide 2,400 Mg/10 Ml Cup) 2,400 mg PO Q48H PRN PRN Reason: Constipation Megestrol Acetate (Megestrol 40 Mg Tab) 40 mg PO BID [facility] Last Admin: 08/26/21 08:36 Dose: 40 mg Methyl Salicylate (Methyl Salicylate-Menthol Oint (3 Oz Tube)) 1 applic TOPICAL DAILY PRN PRN Reason: pain Metolazone (Metolazone 5 Mg Tab) 5 mg PO BID [facility] Last Admin: 08/26/21 08:36 Dose: 5 mg Metoprolol Tartrate (Metoprolol Tartrate 50 Mg Tab) 50 mg PO TID [facility] Last Admin: 08/26/21 17:29 Dose: 50 mg Midodrine (Midodrine 5 Mg Tab) 10 mg PO AC-TID [facility] Last Admin: 08/26/21 17:30 Dose: Not Given Miscellaneous Information (Warfarin Per Pharmacy) 1 each MISCELLANE DIRECTED PRN; Protocol PRN Reason: Per Protocol Multivitamins (Multivitamins, Thera 1 Each Tab) 1 each PO DAILY@1700 [facility] Last Admin: 08/26/21 17:29 Dose: 1 each Naloxone HCl (Naloxone 0.4 Mg/Ml 1 Ml Vial) 0.2 mg IV Q2M PRN PRN Reason: Opioid Reversal Nystatin (Nystatin 100,000 Unit/Gm Powd 15 Gm) 1 applic TOPICAL BID [facility]; Protocol Last Admin: 08/26/21 08:40 Dose: Not Given Nystatin (Nystatin 100,000unit/Gm Cream 30 Gm Tube) 1 applic TOPICAL BID [facility] Last Admin: 08/26/21 08:41 Dose: 1 applic Pantoprazole Sodium (Pantoprazole 40 Mg Tablet) 40 mg PO HS@2200 [facility] Last Admin: 08/25/21 20:32 Dose: 40 mg Simethicone (Simethicone 80 Mg Chewable) 80 mg PO PC-TID PRN PRN Reason: UPPERGASTRIC DISTRESS Triamcinolone Acetonide (Triamcinolone 0.1% Cream 80 Gm Tube) 1 applic TOPICAL BID [facility] Last Admin: 08/26/21 08:41 Dose: 1 applic PHYSICAL EXAMINATION: GENERAL: The patient is alert and oriented x2, morbidly obese Well developed, well nourished. and on 4L via NC, ill appearing, extremely week HEENT: Pupils are round and equally reacting to light. EOMI. no scleral icterus. No conjunctival pallor. Normocephalic, atraumatic. No pharyngeal erythema. No thyromegaly. CARDIOVASCULAR: S1 and S2 muffled PULMONARY: diminished breath sounds bilaterally with some scattered rhonchi noted. ABDOMEN: soft. Nontender on exam. obese. non-distended, normoactive bowel sounds. No palpable organomegaly. MUSCULOSKELETAL: No joint swelling or deformity. EXTREMITIES: No cyanosis, clubbing, lower extremity edema with 2-3+ pitting. Generalized edema noted throughout NEUROLOGICAL: Gross neurological examination did not reveal any focal deficits. Diffuse weakness SKIN: No rashes. Assessment: Atrial fibrillation with RVR new onset, currently rate controlled Congestive heart failure, acute exacerbation with preserved EF Acute urinary tract infection present on admission possibly secondary to urinary retention showing ESBL with enterococcus Morbid obesity with a BMI of 83.1 acute kidney injury Coagulopathy on coumadin COPD, acute exacerbation Diabetes mellitus, type 2 History of PE HIstory of esbl, MRSA Left hip wound GI prophylaxis DVT prophylaxis Full code Plan: Recommend to continue with current medications and management with cardiology following. Infectious disease following and continuing with IV invanz due to urine culture showing ESBL with enterococcus. Pulmonary, nephrology, and cardiology following. Oral intake continues to be poor and recommend encouraging oral intake with nursing staff. Patient is drinking her ensure shakes. Psychiatry consulted for medical capacity and was found to be unable to make sound medical decision making . Had a lengthy discussion with next of kin (cousin- Kathe) who is also documented from [facility] as her emergency contact along with long time friend Karolina who has discussed her medical problems and decline in overal quality of life over the last 2 years and have agreed that her code status should be No code. Social work to follow up with friend Karolina who may be choosing to apply for guardianship. After discussion is had with social work and family, will change code status to DNR as karolina and Kathe stated that patient always stated that she did not want to be placed on a ventilator. Due to multiple complex medical issues, prognosis is extremely poor and guarded. The impression and plan of care has been dictated by Shefali Becerra, nurse practitioner as directed. Dr. Negra MD I have performed a history and examination and MDM of this patient, discussed the same with the dictator, and agree with the dictator's assessment and plan as written ,documented as a scribe. Based on total visit time, I have performed more than 50% of the visit. Any additional findings or plans will be noted. Objective - Vital Signs Vital signs: Vital Signs Temp 97.3 F L 08/26/21 12:00 Pulse 82 08/26/21 13:01 Resp 18 08/26/21 12:00 BP 133/63 08/26/21 12:00 Pulse Ox 92 L 08/26/21 12:00 FiO2 55 08/26/21 05:00 Intake & Output 08/25/21 08/26/21 08/26/21 18:59 06:59 18:59 Intake Total 670 100 83 Output Total 900 Balance 670 -800 83 Weight 219.2 kg 215.7 kg Intake: IV 90 Furosemide 100 mg In 90 Sodium Chloride 0.9% 90 ml @ 15 MG/HR 15 mls/hr IV .Q6H40M [facility] Rx#: [id number] Intake, IV Titration 100 100 83 Amount Furosemide 100 mg In 100 100 83 Sodium Chloride 0.9% 90 ml @ 15 MG/HR 15 mls/hr IV .Q6H40M [facility] Rx#: [id number] Oral 480 Output: Urine 900 Other: Voiding Method Indwelling Catheter Indwelling Catheter # Voids 1 # Bowel Movements 1 - Labs CBC & Chem 7: 08/25/21 09:14 08/26/21 06:15 Labs: Abnormal Lab Results - Last 24 Hours (Table) 08/25/21 08/25/21 08/26/21 Range/Units 16:23 19:55 05:59 PT (9.0-12.0) sec INR (<1.2) Chloride (98-107) mmol/L Carbon Dioxide (22-30) mmol/L BUN (7-17) mg/dL Creatinine (0.52-1.04) mg/dL Glucose (74-99) mg/dL POC Glucose (mg/dL) 108 H 142 H 119 H (75-99) mg/dL 06/09/22 06/09/22 06/09/22 Range/Units 06:15 06:15 11:39 PT 27.5 H (9.0-12.0) sec INR 2.8 H (<1.2) Chloride 86 L (98-107) mmol/L Carbon Dioxide 38 H (22-30) mmol/L BUN 87 H (7-17) mg/dL Creatinine 2.20 H (0.52-1.04) mg/dL Glucose 101 H (74-99) mg/dL POC Glucose (mg/dL) 128 H (75-99) mg/dL Microbiology - Last 24 Hours (Table) 08/18/21 Unknown Urine Culture - Final Urine,Voided Escherichia coli Enterococcus faecalis
[2021-08-26] MEDS: PANTOPRAZOLE 40 MG TABLET PO SCH (20:36)
[2021-08-26] MEDS: ATORVASTATIN 20 MG TAB PO SCH (20:36)
[2021-08-26 20:55] LABS: Glucose,Whole Blood 168 mg/dL (75-99)
[2021-08-27 06:26] LABS: Glucose,Whole Blood 137 mg/dL (75-99)
[2021-08-27] MEDS: MIDODRINE 5 MG TAB PO SCH ×2 (06:47→12:35)
[2021-08-27] MEDS: INSULIN ASPART (NovoLOG) 100 UNIT/ML VIAL SQ SCH ×2 (06:47→12:18)
[2021-08-27] MEDS: FUROSEMIDE 100 MG in SODIUM CHLORIDE 0.9% 90 ML IV SCH (06:48)
[2021-08-27] MEDS: IPRATROPIUM-ALBUTEROL 3 ML NEB INHALATION SCH ×2 (07:21→11:00)
[2021-08-27 08:05] LABS: INR 2.3 (<1.2); Prothrombin Time 23.5 sec (9.0-12.0)
[2021-08-27 08:28] LABS: Albumin 3.1 g/dL (3.5-5.0); Calcium 9.1 mg/dL (8.4-10.2); Magnesium 2.2 mg/dL (1.6-2.3); Potassium 3.9 mmol/L (3.5-5.1); Total Bilirubin 0.3 mg/dL (0.2-1.3); Total Protein 6.6 g/dL (6.3-8.2)
[2021-08-27 09:13] VITALS: BP 116/55; RESP 16; TEMP 97.3
--- NOTE | 2021-08-27 09:19 | P.CN ---
Psychiatric Consult - . Consult date: 08/27/21 Consult:: 08/27/21 09:19 IDENTIFYING DATA: This patient is a 66-year-old female morbidly obesity, COPD, and emphysema who presented to the hospital for hypoxia. HISTORY OF PRESENT ILLNESS: The patient presented to the hospital 08/11/2021 for hypoxia and was noted to be nature fibrillation with RVR by paramedics during transport. The patient's hospitalization has been complicated with the patient being managed for congestive heart failure, chronic hypoxic respiratory failure, and acute urinary tract infection related to ESBL E. coli and enterococcus faecalis. Psychiatry has been consulted for evaluation of the patient's capacity for medical decision-making. Upon evaluation by this provider, the patient is unable to provide any significant or clear and coherent history. The patient is currently alert and oriented to self only. She identifies her current surroundings as "[facility]." She is unable to verbalize the name of the city or what year it is. When asked if she has anybody who can make medical decisions for her, the patient displays significant clanging and states, "[place], trees, trees, trees, trees." It is noted that Kathe is her cousin. This content writer attempted to discuss the patient's current diagnoses and treatment regimens however the patient is unable to appropriate comprehend what is being said to her. PAST PSYCHIATRIC HISTORY: As per chart review, the patient has a history of bipolar disorder and depression. The patient's home regimen included Lexapro 20 mg daily, Seroquel 300 mg at bedtime and 50 mg daily. Unable to determine if the patient has had previous psychiatric admissions. Unable to determine any outpatient psychiatric follow-up. Cannot assess for past suicide attempts. PAST MEDICAL HISTORY: Past Medical History: COPD, Diabetes Mellitus, Hypertension, Osteoarthritis (OA), Pulmonary Embolus (PE), Skin Disorder, Thyroid Disorder Additional Past Medical History / Comment(s): Morbid obesity, Diabetes mellitus, hypertension, previous history of pulmonary embolism/DVT, osteoarthritis, hypothyroidism, eczema, osteoarthritis of the lower extremities including knees and ankles and the patient has received steroid shots, chronic allergic rhinitis, vertigo, congestive heart failure, COPD, lymphedema, anemia, diabetic neuropathy, History of Any Multi-Drug Resistant Organisms: ESBL, MRSA Date of last positivie culture/infection: 04/27/20 ESBL 06/10/19 MRSA MDRO Source:: ESBL URINE MRSA ABDOMEN Past Surgical History: Breast Surgery, Cholecystectomy, Orthopedic Surgery Additional Past Surgical History / Comment(s): LT WRIST GANGLION CYST. 3 BREAST SURGERIES - BENIGN. RTR. SINUS SURGERY. D&C 07/2014. Past Anesthesia/Blood Transfusion Reactions: Motion Sickness Additional Past Anesthesia/Blood Transfusion Reaction / Comment(s): Cla ustrophobia Past Psychological History: Bipolar, Depression Smoking Status: Never smoker Past Alcohol Use History: None Reported Past Drug Use History: None Reported ALLERGIES: as per EMR. CHEMICAL DEPENDENCY HISTORY: as per HPI. Listed as a never smoker. No reported alcohol or drug use history. FAMILY PSYCHIATRIC/SUBSTANCE USE HISTORY: Unable to obtain. SOCIAL HISTORY: Patient is listed as single, unemployed. MENTAL STATUS EXAM: General Appearance: Patient appears to be stated age is alert, pleasant, and cooperative. Patient appears to have fair hygiene and grooming wearing hospital gown with fair eye contact. Behavior: Patient is calmly lying in bed without any agitated behavior. Speech: Patient's speech is fluent and nonpressured. Mood/Affect: Patient reports their mood is "depressed", affect is congruent Suicidality/Homicidality: Patient denies having any suicidal or homicidal ideation intent or plan. Perceptions: Patient denies any visual hallucinations and denies any auditory hallucinations Though content/process: There is no evidence of any delusional thought content and thought process is linear and goal-directed. Memory and concentration: AOX3, grossly intact for the purposes of this session. Can spell "WORLD" backwards Judgment and insight: poor IMPRESSIONS: Altered mental status - multiple etiologies including chronic hypoxia, prolonged hospitalization, tract infection, acute metabolic encephalopathy CHF with diastolic dysfunction Atrial fibrillation Hypertension Morbid obesity Hypothyroidism Urinary tract infection PLAN: -At this time patient DOES NOT meet criteria for inpatient psychiatric admission. -Patient DOES NOT have decision making capacity at this time and is unable to reason through and communicate/appreciate the risks, benefits and alternatives to treatment. The patient is able to identify her cousin Kathe as medical surrogate decision maker. -Delirium precautions recommended with patient including - avoiding use of narcotics and SWIMMING [employer] SALESPERSON sedatives, limit anticholinergic medications when possible, frequent re-orientation, minimize use of restraints, open window shades during the day and close them at night -Would recommend the following medication changes/additions: No medication recommendations made at this time. Continue Lexapro. Continue to hold Seroquel. The patient's presentation is not consistent with any bipolar manic episode or psychotic episode. -Psychiatry will sign off at this point, please contact with any questions. 08/27/21 09:19
[2021-08-27] MEDS: LEVOTHYROXINE 88 MCG TAB PO SCH (09:20)
[2021-08-27] MEDS: METOPROLOL TARTRATE 50 MG TAB PO SCH (09:20)
[2021-08-27] MEDS: ESCITALOPRAM 20 MG TAB PO SCH (09:20)
[2021-08-27] MEDS: MEGESTROL 40 MG TAB PO SCH (09:21)
[2021-08-27] MEDS: metOLazone 5 MG TAB PO SCH (09:21)
[2021-08-27] MEDS: ERTAPENEM 0.5 GM in SODIUM CHLORIDE 0.9% 50 ML IVPB SCH (09:21)
[2021-08-27] MEDS: NYSTATIN 100,000UNIT/GM CREAM 30 GM TUBE TOPICAL SCH (09:22)
[2021-08-27] MEDS: DOCUSATE 100 MG CAP PO SCH (09:22)
[2021-08-27] MEDS: TRIAMCINOLONE 0.1% CREAM 80 GM TUBE TOPICAL SCH (09:22)
[2021-08-27] MEDS: NYSTATIN 100,000 UNIT/GM POWD 15 GM TOPICAL SCH (09:22)
[2021-08-27] MEDS: FOLIC ACID 1 MG TAB PO SCH (09:27)
[2021-08-27] MEDS: FERROUS SULFATE 325 MG TAB PO SCH (09:27)
[2021-08-27] MEDS ORDERED: POTASSIUM CHLORIDE ER 20 MEQ TAB.ER PO STA (11:10)
[2021-08-27 11:11] VITALS: PULSE 87
--- NOTE | 2021-08-27 11:12 | P.PN ---
Subjective Patient is seen in follow-up for acute kidney injury. Renal function fairly stable. Nonoliguric. Maintained on Lasix drip and metolazone. Oral intake fair. Denies vomiting or diarrhea. Blood pressure controlled. No chest pain or shortness of breath. On 4 L nasal cannula. No changes overnight. Vital signs stable. General: No acute distress. HEENT: Head exam is unremarkable. On nasal cannula. LUNGS: Breath sounds decreased. HEART: Rate and Rhythm are regular. ABDOMEN: Soft, obese. EXTREMITITES: 2+ edema. Objective - Vital Signs Vital signs: Vital Signs Temp 97.3 F L 08/27/21 08:00 Pulse 78 08/27/21 11:00 Resp 16 08/27/21 08:00 BP 116/55 08/27/21 08:00 Pulse Ox 91 L 08/27/21 08:00 FiO2 55 08/27/21 04:00 Intake & Output 08/26/21 08/27/21 08/27/21 18:59 06:59 18:59 Intake Total 549 229.5 480 Output Total 250 300 Balance 299 -70.5 480 Weight 216.1 kg Intake: Intake, IV Titration 183 179.5 Amount Furosemide 100 mg In 183 179.5 Sodium Chloride 0.9% 90 ml @ 15 MG/HR 15 mls/hr IV .Q6H40M [facility] Rx#: [id number] Oral 366 50 480 Output: Urine 250 300 Other: Voiding Method Indwelling Catheter Diaper External Catheter - Labs CBC & Chem 7: 08/25/21 09:14 08/27/21 07:27 Labs: Abnormal Lab Results - Last 24 Hours (Table) 08/26/21 08/26/21 08/26/21 Range/Units 11:39 16:20 20:27 PT (9.0-12.0) sec INR (<1.2) Chloride (98-107) mmol/L Carbon Dioxide (22-30) mmol/L BUN (7-17) mg/dL Creatinine (0.52-1.04) mg/dL Glucose (74-99) mg/dL POC Glucose (mg/dL) 128 H 140 H 168 H (75-99) mg/dL Albumin (3.5-5.0) g/dL 08/27/21 08/27/21 08/27/21 Range/Units 06:16 07:27 07:27 PT 23.5 H (9.0-12.0) sec INR 2.3 H (<1.2) Chloride 87 L (98-107) mmol/L Carbon Dioxide 43 H* (22-30) mmol/L BUN 92 H (7-17) mg/dL Creatinine 2.28 H (0.52-1.04) mg/dL Glucose 103 H (74-99) mg/dL POC Glucose (mg/dL) 137 H (75-99) mg/dL Albumin 3.1 L (3.5-5.0) g/dL Assessment and Plan Plan: Assessment: 1. Acute kidney injury secondary to ATN secondary to cardiorenal syndrome and infection. Baseline creatinine near 1. Renal function fairly stable last few days. Creatinine 2.28 today. Nonoliguric. No proteinuria on UA done 08/18/2021. No hydronephrosis noted on kidney ultrasound. 2. Acute on chronic systolic CHF with ejection fraction of 40-45%. 3. Volume overload. Improving with diuresis. 4. E. coli and enterococcus UTI on antibiotics. 5. Diabetes mellitus. 6. A. fib with RVR maintained on metoprolol and Coumadin. Cardiology following. 7. Acute on chronic hypoxic and hypercapnic respiratory failure. 8. Morbid obesity. 9. Metabolic alkalosis secondary to diuresis. Partially compensatory for underlying respiratory acidosis. Plan: Stop Lasix drip. Add IV Lasix 60 mg twice daily. Maintain metolazone. Add Diamox. Low-salt diet and 1500 mL fluid restriction. Avoid nephrotoxins. Continue to monitor renal function and urine output. Continue to assess daily for need for renal replacement therapy. Urine output improved. No urgency at this time. Maintain midodrine. Hold for systolic blood pressure above 110. Cortisol level not low. Prognosis guarded. Case discussed with social work. Guardianship being obtained. Comfort measures/hospice being considered.
[2021-08-27 12:17] LABS: Glucose,Whole Blood 123 mg/dL (75-99)
[2021-08-27] MEDS: CHOLECALCIFEROL 25 MCG (1000 IU) TABLET PO SCH (12:18)
[2021-08-27] MEDS: LACTOBACILLUS ACIDOPH & BULGAR 1 EACH PACKET PO SCH (12:18)
--- NOTE | 2021-08-27 12:48 | P.PN ---
Subjective Progress Note Date: 08/25/21 Principal diagnosis: Left lateral thigh wound/rash, groin Cutaneous candidiasis Patient is a 65-year-old female with multiple comorbidities morbid obesity presented to the hospital with increasing shortness of breath patient was also noticed to have a extensive bilateral groin area Cutaneous candidiasis and also an erythematous patch to the left lateral thigh area. On today's evaluation that is 08/25/2021, the patient remains to be afebrile, the patient is breathing comfortably on 4 L nasal cannula oxygen, the patient denies chest pain, the patient did have occasional dry cough, the patient denies abdominal pain no diarrhea has been reported Objective - Vital Signs Vital signs: Vital Signs Temp 94.5 F L 08/25/21 08:00 Pulse 76 08/25/21 12:07 Resp 16 08/25/21 04:35 BP 90/51 08/25/21 08:00 Pulse Ox 95 08/25/21 08:00 FiO2 40 08/25/21 04:35 Intake & Output 08/24/21 08/25/21 08/25/21 18:59 06:59 18:59 Intake Total 172 432.75 240 Output Total 1200 850 Balance -1028 -417.25 240 Weight 219.2 kg 219.2 kg Intake: Intake, IV Titration 172 194.75 Amount Furosemide 100 mg In 172 194.75 Sodium Chloride 0.9% 90 ml @ 15 MG/HR 15 mls/hr IV .Q6H40M [facility] Rx#: [id number] Oral 238 240 Output: Urine 1200 850 Uretheral (Claros) 850 Other: Voiding Method Indwelling Catheter Indwelling Catheter Indwelling Catheter # Bowel Movements 1 - Exam GENERAL DESCRIPTION: An elderlyfemale lying in bed in no distress RESPIRATORY SYSTEM: Unlabored breathing , decreased breath sounds at bases HEART: S1 S2 regular rate and rhythm , ABDOMEN: Soft , no tenderness EXTREMITIES: Diffuse swelling bilateral lower extremity with an erythematous patch to left lateral thigh - Labs CBC & Chem 7: 08/25/21 09:14 08/27/21 07:27 Labs: Abnormal Lab Results - Last 24 Hours (Table) 08/24/21 08/25/21 08/25/21 Range/Units 20:18 09:14 09:14 WBC (3.8-10.6) k/uL Hgb (11.4-16.0) gm/dL MCHC (31.0-37.0) g/dL RDW (11.5-15.5) % Neutrophils # (1.3-7.7) k/uL PT 23.7 H (9.0-12.0) sec INR 2.4 H (<1.2) Sodium 135 L (137-145) mmol/L Chloride 87 L (98-107) mmol/L Carbon Dioxide 39 H (22-30) mmol/L BUN 83 H (7-17) mg/dL Creatinine 2.01 H (0.52-1.04) mg/dL Glucose 101 H (74-99) mg/dL POC Glucose (mg/dL) 105 H (75-99) mg/dL 08/25/21 08/25/21 Range/Units 09:14 11:51 WBC 12.6 H (3.8-10.6) k/uL Hgb 11.3 L (11.4-16.0) gm/dL MCHC 28.1 L (31.0-37.0) g/dL RDW 16.0 H (11.5-15.5) % Neutrophils # 9.6 H (1.3-7.7) k/uL PT (9.0-12.0) sec INR (<1.2) Sodium (137-145) mmol/L Chloride (98-107) mmol/L Carbon Dioxide (22-30) mmol/L BUN (7-17) mg/dL Creatinine (0.52-1.04) mg/dL Glucose (74-99) mg/dL POC Glucose (mg/dL) 100 H (75-99) mg/dL Microbiology - Last 24 Hours (Table) 08/18/21 Unknown Urine Culture - Final Urine,Voided Escherichia coli Enterococcus faecalis 08/18/21 09:12 Blood Culture - Final Blood No Growth after 144 hours Assessment and Plan (1) Non-healing skin lesion Current Visit: No Status: Acute Code(s): L98.9 - DISORDER OF THE SKIN AND SUBCUTANEOUS TISSUE, UNSPECIFIED SNOMED Code(s): 39739544 Plan: 1patient with left lateral thigh wound with no evidence of any cellulitis and oozing could be related to the fluid overload state, patient to continue with the Mycolog cream applied twice a day. 2 Patient with bilateral groin area cutaneous candidiasis but no evidence of secondary cellulitis to continue continue with nystatin powder twice a day. 3-patient did have leukocytosis chest x-rays mostly bilateral diffuse infiltrate, CRP and procalcitonin mildly elevated 4- the patient did have some clinical improvement white count is trending down, urine has been finalized ESBL E. coli , patient repeat urine also grew ESBL and enterococcus, which is sensitive to penicillin, patient to continue with Invanz Time with Patient: Less than 30
--- NOTE | 2021-08-27 12:49 | P.PN ---
Subjective Progress Note Date: 08/26/21 Principal diagnosis: Left lateral thigh wound/rash, groin Cutaneous candidiasis Patient is a 65-year-old female with multiple comorbidities morbid obesity presented to the hospital with increasing shortness of breath patient was also noticed to have a extensive bilateral groin area Cutaneous candidiasis and also an erythematous patch to the left lateral thigh area. On today's evaluation that is 08/26/2021, the patient continues to be afebrile, the patient is breathing comfortably on 4 L nasal cannula oxygen, the patient denies chest pain, occasional cough, the patient denies abdominal pain no diarrhea has been reported Objective - Vital Signs Vital signs: Vital Signs Temp 97.3 F L 08/26/21 12:00 Pulse 82 08/26/21 13:01 Resp 18 08/26/21 12:00 BP 133/63 08/26/21 12:00 Pulse Ox 92 L 08/26/21 12:00 FiO2 55 08/26/21 05:00 Intake & Output 08/25/21 08/26/21 08/26/21 18:59 06:59 18:59 Intake Total 670 100 83 Output Total 900 Balance 670 -800 83 Weight 219.2 kg 215.7 kg Intake: IV 90 Furosemide 100 mg In 90 Sodium Chloride 0.9% 90 ml @ 15 MG/HR 15 mls/hr IV .Q6H40M [facility] Rx#: [id number] Intake, IV Titration 100 100 83 Amount Furosemide 100 mg In 100 100 83 Sodium Chloride 0.9% 90 ml @ 15 MG/HR 15 mls/hr IV .Q6H40M [facility] Rx#: [id number] Oral 480 Output: Urine 900 Other: Voiding Method Indwelling Catheter Indwelling Catheter # Voids 1 # Bowel Movements 1 - Exam GENERAL DESCRIPTION: An elderlyfemale lying in bed in no distress RESPIRATORY SYSTEM: Unlabored breathing , decreased breath sounds at bases HEART: S1 S2 regular rate and rhythm , ABDOMEN: Soft , no tenderness EXTREMITIES: Diffuse swelling bilateral lower extremity with an erythematous patch to left lateral thigh - Labs CBC & Chem 7: 08/25/21 09:14 08/27/21 07:27 Labs: Abnormal Lab Results - Last 24 Hours (Table) 08/25/21 08/25/21 08/26/21 Range/Units 16:23 19:55 05:59 PT (9.0-12.0) sec INR (<1.2) Chloride (98-107) mmol/L Carbon Dioxide (22-30) mmol/L BUN (7-17) mg/dL Creatinine (0.52-1.04) mg/dL Glucose (74-99) mg/dL POC Glucose (mg/dL) 108 H 142 H 119 H (75-99) mg/dL 08/26/21 08/26/21 08/26/21 Range/Units 06:15 06:15 11:39 PT 27.5 H (9.0-12.0) sec INR 2.8 H (<1.2) Chloride 86 L (98-107) mmol/L Carbon Dioxide 38 H (22-30) mmol/L BUN 87 H (7-17) mg/dL Creatinine 2.20 H (0.52-1.04) mg/dL Glucose 101 H (74-99) mg/dL POC Glucose (mg/dL) 128 H (75-99) mg/dL Microbiology - Last 24 Hours (Table) 08/18/21 Unknown Urine Culture - Final Urine,Voided Escherichia coli Enterococcus faecalis Assessment and Plan (1) Non-healing skin lesion Current Visit: No Status: Acute Code(s): L98.9 - DISORDER OF THE SKIN AND SUBCUTANEOUS TISSUE, UNSPECIFIED SNOMED Code(s): 85088993 Plan: 1patient with left lateral thigh wound with no evidence of any cellulitis and oozing could be related to the fluid overload state, patient to continue with the Mycolog cream applied twice a day. 2 Patient with bilateral groin area cutaneous candidiasis but no evidence of secondary cellulitis to continue continue with nystatin powder twice a day. 3-patient did have leukocytosis chest x-rays mostly bilateral diffuse infiltrate, CRP and procalcitonin mildly elevated 4- the patient did have some clinical improvement , his urine was ESBL E. coli repeat urine with ESBL E. coli and enterococcus was sensitive to penicillin, patient has received adequate antibiotic therapy for UTI and Invanz completed Time with Patient: Less than 30
--- NOTE | 2021-08-27 12:51 | P.PN ---
Subjective Progress Note Date: 08/27/21 Principal diagnosis: Left lateral thigh wound/rash, groin Cutaneous candidiasis Patient is a 65-year-old female with multiple comorbidities morbid obesity presented to the hospital with increasing shortness of breath patient was also noticed to have a extensive bilateral groin area Cutaneous candidiasis and also an erythematous patch to the left lateral thigh area. On today's evaluation that is 08/27/2021, the patient remains to be afebrile, the patient is breathing comfortably on 4 L nasal cannula oxygen, the patient slightly sleepy lethargic and did not answer any questions today, no vomiting or diarrhea reported by the nursing staff Objective - Vital Signs Vital signs: Vital Signs Temp 97.3 F L 08/27/21 08:00 Pulse 87 08/27/21 11:10 Resp 16 08/27/21 08:00 BP 116/55 08/27/21 08:00 Pulse Ox 91 L 08/27/21 08:00 FiO2 55 08/27/21 04:00 Intake & Output 08/26/21 08/27/21 08/27/21 18:59 06:59 18:59 Intake Total 549 229.5 480 Output Total 250 300 Balance 299 -70.5 480 Weight 216.1 kg Intake: Intake, IV Titration 183 179.5 Amount Furosemide 100 mg In 183 179.5 Sodium Chloride 0.9% 90 ml @ 15 MG/HR 15 mls/hr IV .Q6H40M [facility] Rx#: [id number] Oral 366 50 480 Output: Urine 250 300 Other: Voiding Method Indwelling Catheter Diaper External Catheter External Catheter - Exam GENERAL DESCRIPTION: An elderlyfemale lying in bed in no distress RESPIRATORY SYSTEM: Unlabored breathing , decreased breath sounds at bases HEART: S1 S2 regular rate and rhythm , ABDOMEN: Soft , no tenderness EXTREMITIES: Diffuse swelling bilateral lower extremity with an erythematous patch to left lateral thigh - Labs CBC & Chem 7: 08/25/21 09:14 08/27/21 07:27 Labs: Abnormal Lab Results - Last 24 Hours (Table) 08/26/21 08/26/21 08/27/21 Range/Units 16:20 20:27 06:16 PT (9.0-12.0) sec INR (<1.2) Chloride (98-107) mmol/L Carbon Dioxide (22-30) mmol/L BUN (7-17) mg/dL Creatinine (0.52-1.04) mg/dL Glucose (74-99) mg/dL POC Glucose (mg/dL) 140 H 168 H 137 H (75-99) mg/dL Albumin (3.5-5.0) g/dL 08/27/21 08/27/21 08/27/21 Range/Units 07:27 07:27 12:15 PT 23.5 H (9.0-12.0) sec INR 2.3 H (<1.2) Chloride 87 L (98-107) mmol/L Carbon Dioxide 43 H* (22-30) mmol/L BUN 92 H (7-17) mg/dL Creatinine 2.28 H (0.52-1.04) mg/dL Glucose 103 H (74-99) mg/dL POC Glucose (mg/dL) 123 H (75-99) mg/dL Albumin 3.1 L (3.5-5.0) g/dL Assessment and Plan (1) Non-healing skin lesion Current Visit: No Status: Acute Code(s): L98.9 - DISORDER OF THE SKIN AND SUBCUTANEOUS TISSUE, UNSPECIFIED SNOMED Code(s): 00718433 Plan: 1patient with left lateral thigh wound with no evidence of any cellulitis and oozing could be related to the fluid overload state, patient to continue with the Mycolog cream daily 2 Patient with bilateral groin area cutaneous candidiasis but no evidence of secondary cellulitis to continue continue with nystatin powder twice a day. 3-patient with ESBL E. coli repeat urine with ESBL E. coli and enterococcus was sensitive to penicillin, patient has completed her IV to by therapy with Invanz and will monitor the patient closely off antibiotic
--- NOTE | 2021-08-27 13:14 | P.PN ---
Subjective Progress Note Date: 08/27/21 On 08/17/2021 patient seen in follow-up on selective care unit. She is awake and alert, in no acute distress, she has been wearing BiPAP intermittently, she is currently on nasal cannula, patient remains on IV Lasix at 50 mg/h. However her urine output has been very minimal, and patient still has significant generalized edema and significant lower extremity edema. Renal function continues to worsen and on today's labs BUN is 56, and creatinine is 2.05. Sodium is 134, potassium is 4.3. Urinalysis showed evidence of acute urinary tract infection. White blood cell count has increased and is up to 16.2, hemoglobin is 10.7. INR is 4.5. No nausea or vomiting, although her appetite is poor. No Complains of chest discomfort. No coughing or wheezing, no fever or chills. On 08/18/2021 patient seen in follow-up on selective care unit, she is awake, answering questions appropriately, she did wear BiPAP support pressures of 12 and 4, and FiO2 40% overnight, she is currently on 4 L of oxygen pulse ox is 93%, she is afebrile, blood pressure is been stable. She remains on Lasix infusion at 15 mg per hour, she is only in -48 cc negative fluid balance over the last 24 hours, she has produced 575 ML of urine, and remains significantly fluid overloaded with anasarca, significant peripheral edema. Chest x-ray today showed diffuse pleural parenchymal changes that are stable in appearance related to CHF. Today's labs have been reviewed, INR is 5.9, sodium is 133, potassium is 4.4, chloride is 88, CO2 is stable at 36, renal function continues to slightly worsen, and BUN is 57, creatinine is 2.22. Urinalysis showed evidence of urinary tract infection, urine culture is currently pending. On 08/19/2021 patient is seen in follow-up on selective care unit. He remains on Lasix drip at 15 mg per hour, however her urine output remains poor, and she is actually in 925 ML positive net fluid balance over the last 24 hours. We requested nursing staff to obtain a current weight, the patient is positive at 19.6 kilos since admission. She is significantly fluid overloaded with anasarca, and severe pitting edema of bilateral lower extremities, abdomen, thighs. Today's labs have been reviewed, showing white blood cell count of 15.6, hemoglobin of 11.2, she received vitamin K for INR of 5.9 yesterday, INR is currently down to 1.4, Coumadin remains on hold, pharmacy is dosing, sodium is 132, potassium is 4.3, chloride is 87, CO2 is 38, BUN is 60, creatinine is 2.29, pro calcitonin level is 0.30, urinalysis showed evidence of urinary tract infection, we will empirically place the patient on Rocephin, and urine culture has been sent., Currently showing gram-negative bacilli, final culture is pending On 08/24/2021 patient seen in follow-up on selective care unit, she is resting i n bed, have a drowsy, but arouses to voice, and answers questions appropriately. Patient has been wearing BiPAP support at night with FiO2 of 40%, and pressures of 12 and 5. Patient remains on Lasix infusion at 15 mg per hour, and Zaroxolyn 5 mg twice a day, and patient is in -1.6 L 24 hours, still has significant peripheral edema including bilateral lower extremities and abdominal wall, yesterday's chest x-ray showed similar cardiomegaly and diffuse interstitial patchy opacities possible patchy pulmonary edema, extensive opacity left mid and lower lung persistence likely combination of moderate pleural effusion with adjacent atelectasis. Labs have been reviewed, INR is 1.9, sodium is 136, potassium 3.6, chloride is 86, CO2 is 40, BUN is 79, and creatinine is 2.23. Also found to have enterococcus faecalis and ESBL E. coli urinary tract infection, and is currently on ertapenem for antibiotic coverage. She's had no fever or chills overnight, vital signs have been stable, ID service is following. 08/25/2021, the patient is being seen for a follow-up. This morning she is on a BiPAP at a setting of 12/5 cm of water and FiO2 of 40%. While off the BiPAP, the patient goes back on 40% oxygen by nasal cannula. Oral intake is fair. No nausea or vomiting. She is on Lasix drip at 15 mg an hour and Zaroxolyn 5 mg by mouth twice a day. She is already on Synthroid 88 g on a daily basis. This is her home dose.. 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 As such, the patient is diuresing. Electrolytes remain stable. The BUN is at 83 with a creatinine of 2.01 and the creatinine is slightly improved compared to yesterday and the sodium is at 135 with a potassium level of 4.5 and INR is at 2.4 for now. The white cell count of 12.6 and the patient remains on IV Invanz for ESBL E. coli and enterococcus. Alert and awake and communicating. Resting comfortably but for now. Body mass index is 82.9 the patient was found to be hypothermic this morning with a temperature of 94.7 the patient is receiving external warming at this point in time. 9 2021, the patient is alert and awake and communicating on 4 L of O2 nasal cannula. She has also a BiPAP at standby. She remains on Lasix 15 mg an hour Lasix drip in addition to Zaroxolyn 5 mg by mouth twice a day. She is producing urine output. Her renal function is stable with a creatinine of 2.2 and a BUN of 81. INR is at 2.8. Sodium is at 137 with a potassium level of 4.1. Serum bicarb is at 38. Fluid balance has been -1.4 L over the past 24 hours. There is improvement in the volume status. There is improvement in lower extremity edema and abdominal edema. The patient is taking her sure shakes and she is able to swallow without any major difficulties. She did have some hypothermic yesterday which improved. He remains on IV Invanz for E. coli in her urine and enterococcus. Repeat chest x-ray shows residual pulmonary vessel congestion and interstitial edema along with cardiomegaly although slightly improved compared to the earlier chest x-ray from 08/23/2021. 08/27/2021, the patient is still on a Lasix drip. her condition and showed only limited improvement. Further discussion took place and the patient is going to a snf back along with hospice care. based on that, the Lasix drip has been discontinued and the patient is currently on oxygen at 4 L. She is resting comfortably in bed. No other issues for now. Objective - Vital Signs Vital signs: Vital Signs Temp 97.3 F L 08/27/21 08:00 Pulse 87 08/27/21 11:10 Resp 16 08/27/21 08:00 BP 116/55 08/27/21 08:00 Pulse Ox 91 L 08/27/21 08:00 FiO2 55 08/27/21 04:00 Intake & Output 08/26/21 08/27/21 08/27/21 18:59 06:59 18:59 Intake Total 549 229.5 480 Output Total 250 300 Balance 299 -70.5 480 Weight 216.1 kg Intake: Intake, IV Titration 183 179.5 Amount Furosemide 100 mg In 183 179.5 Sodium Chloride 0.9% 90 ml @ 15 MG/HR 15 mls/hr IV .Q6H40M [facility] Rx#: [id number] Oral 366 50 480 Output: Urine 250 300 Other: Voiding Method Indwelling Catheter Diaper External Catheter External Catheter - Exam GENERAL EXAM: Alert, very pleasant, 65-year-old morbidly obese white female, on nasal cannula and BiPAP support intermittently, comfortable in no apparent distr ess. HEAD: Normocephalic/atraumatic. EYES: Normal reaction of pupils, equal size. Conjunctiva pink, sclera white. NOSE: Clear with pink turbinates. THROAT: No erythema or exudates. NECK: No masses, no JVD, no thyroid enlargement, no adenopathy. CHEST: No chest wall deformity. Symmetrical expansion. LUNGS: Equal air entry with no crackles, wheeze, rhonchi or dullness. CVS: Regular rate and rhythm, normal S1 and S2, no gallops, no murmurs, no rubs ABDOMEN: Soft, obese, nontender No hepatosplenomegaly, normal bowel sounds, no guarding or rigidity. EXTREMITIES: No clubbing, 3+ lower extremity edema no cyanosis, 2+ pulses and upper and lower extremities. MUSCULOSKELETAL: Muscle strength and tone normal. SPINE: No scoliosis or deformity SKIN: No rashes CENTRAL NERVOUS SYSTEM: Alert and oriented -3. No focal deficits, tone is normal in all 4 extremities. PSYCHIATRIC: Alert and oriented -3. Appropriate affect. Intact judgment and insight. - Labs CBC & Chem 7: 08/25/21 09:14 08/27/21 07:27 Labs: Abnormal Lab Results - Last 24 Hours (Table) 08/26/21 08/26/21 08/27/21 Range/Units 16:20 20:27 06:16 PT (9.0-12.0) sec INR (<1.2) Chloride (98-107) mmol/L Carbon Dioxide (22-30) mmol/L BUN (7-17) mg/dL Creatinine (0.52-1.04) mg/dL Glucose (74-99) mg/dL POC Glucose (mg/dL) 140 H 168 H 137 H (75-99) mg/dL Albumin (3.5-5.0) g/dL 08/27/21 08/27/21 08/27/21 Range/Units 07:27 07:27 12:15 PT 23.5 H (9.0-12.0) sec INR 2.3 H (<1.2) Chloride 87 L (98-107) mmol/L Carbon Dioxide 43 H* (22-30) mmol/L BUN 92 H (7-17) mg/dL Creatinine 2.28 H (0.52-1.04) mg/dL Glucose 103 H (74-99) mg/dL POC Glucose (mg/dL) 123 H (75-99) mg/dL Albumin 3.1 L (3.5-5.0) g/dL Assessment and Plan Plan: Assessment: #1. Acute shortness of breath, acute on chronic with evidence of worsening CHF with diastolic dysfunction. Chest x-ray findings are consistent with CHF, cardiomegaly and pulmonary edema and increased lower extremity edema related to decompensated CHF., #2. Acute on chronic hypoxic/hypercapnic respiratory failure on BiPAP alternating with nasal cannula #3. Acute kidney injury patient is oliguric, nephrology is on the case. Loraine ent is on Lasix infusion in addition to Zaroxolyn, and is starting to produce improved urine output #4. CHF with probable biventricular diastolic heart failure with acute decompensation is significant volume overload #5. New onset atrial fibrillation, currently controlled with oral amiodarone an d metoprolol #6. Chronic hypoxic respiratory failure #7. Morbid obesity with BMI of 73.5 kg/m #8. Chronic hypoxic and hypercapnic respiratory failure with a component of obesity hypoventilation syndrome #9. Hypertension #10. Previous history of pulmonary embolism on Coumadin #11. Hypothyroidism #12. Chronic lower extremity edema #13. Diabetes mellitus #14. Resident of an extended care facility #15. Acute urinary tract infection related to ESBL E. coli, and enterococcus faecalis, currently on ertapenem Plan: very debilitated patient who showed limited improvement. Based on her medical condition and comorbidities, it's reasonable to consider hospitalization. The patient is going back to the snf with hospice services on board. [facility] hospice services will be involved. Pulmonary critical care services we'll sign off the case.
--- NOTE | 2021-08-27 14:23 | P.PN ---
Subjective Progress Note Date: 08/27/21 This 65-year-old female was recently admitted with CHF and atrial fibrillation cardio following closely. Patient was maintained on IV Cardizem which is currently being transitioned IV amiodarone along with IV heparin. 2-D echo was ordered and pending at this time. Patient continues on 2 L of oxygen via nasal cannula at 90% oxygen pulse ox and continues to report shortness of breath and generalized weakness. Patient is morbidly obese with a BMI of 73.5 and resides in [place] Patient's blood pressure is elevated and will initiate Norvasc 10 mg daily and monitor closely. Infectious disease also consulted for a wound on the left hip along with pulmonary for COPD acute exacerbation. Patient denies any chest pain and patient is afebrile. 08/13/2021 Patient is seen today in follow up and continues to report shortness of breath. Cardiology and pulmonary and ID following. Patient is continued on bronchodilators and also continues on IV lasix. IV heparin continued and being started on coumadin. Transitioned to oral amiodarone and cardiology adjusting medications. Patient denies chest pain and is afebrile. 08/14/2021 Patient is seen this am and continues with cardiology and pulmonary following. Neprhology consulted for elevated kidney functions and patient is continued on IV lasix. US renal/bladder and pending. Patient continues with 3L via NC and breathing treatments along with IV heparin and coumadin with pharmacy to dose. Cardiology also following. Patient is afebrile and denies any chest pain. Patient reports not eating or drinking. 08/15/2021 Patient is seen today and continues with worsening renal functions and also some hypotension. Patient was maintained on IV heparin with coumadin and INR is 2.6 today and will dc heparin. Patient with hypotension and adding some midodrine and per nephro will give a 250ml bolus. Off IV lasix for now given worsening renal functions. Poor oral intake and decreased urine output from yesterday. Continue lacy catheter and encouraged oral intake. Patient is more lethargic today as well. 08/16/2021 Patient is seen in follow-up currently maintained on BiPAP and continues with shortness of breath. Multiple medical consultations following including pulmonary, nephrology, cardiology and patient continues with volume overload and is being started on IV Lasix. Patient with worsening kidney functions and decreased urine output although bladder and abdomen ultrasound showed no evidence of hydronephrosis. Patient also transition to Coumadin and INR is 4.0 and recommend to hold Coumadin and repeat labs. Sodium is 133 with a potassium of 4.3, BUN is 50, creatinine is 2.03. Patient not really tolerating any oral diet and difficult given the BiPAP is continuous at this time. Patient is anxious with family friend at the bedside. Patient is afebrile and denies any chest pain. Patient to continue with local wound care per ID with frequent position changes as well. 08/17/2021 Patient is seen this morning and continues on IV lasix drip with cardiology, pulmonary, and nephrology following. Patient is on bipap and continues with poor oral intake and minimal urine output. Indwelling catheter for strict monitoring of intake and output. Patient did have some brief periods of attempting nasal cannula and was able to take medications and have 2cups of applesauce per medical staff credentialing coordinator. WBC is elevated and CXR ordered. Patient is afebrile and denies chest pain. 08/18/2021 Patient is seen in follow-up this morning continues on IV Lasix drip with nephrology and cardiology following closely. Patient also continues on IV ceftriaxone and also has been transitioned and titrated down on oral amiodarone. Patient morning labs pending at this time and patient is normally on Coumadin although currently held as patient was having elevated INR. Will follow-up with morning labs. Patient is now off BiPAP this morning and maintained on 4 L was 93-94% oxygen saturation. Urine output is decreased but has slowly improved. Oral intake is poor. Patient is afebrile and denies any chest pain or worsening shortness of breath. 08/19/2021 Patient is seen in follow-up this morning and mentation is slowly improving although patient continues to be lethargic and is continued on BiPAP at night and as needed and also currently maintained on 4 L via nasal cannula. Patient continues on IV Lasix drip with some improvement in urine output and will continue with indwelling Lacy catheter. Urine with urine culture was done and preliminary showing gram-negative bacilli with ID following and IV ceftriaxone being initiated. Patient's INR improved after vitamin K administration and will continue with Coumadin with pharmacy to dose. Patient is afebrile and denies any worsening shortness of breath or chest pain. Patient is asking if she can return home. Patient is a resident at [facility]. 08/20/2021 Patient is seen this morning and is more awake and alert and reports to feeling better and would like to go home. Discussed with patient about continuing on IV lasix and will need to transition to oral once kidney functions improve. Urine output has improved. Oral intake is poor and will add Megase. Discussed with dietitian. Patient also being switched to IV invanz with ID following for UTI as repeat urine remains growing gram negative. Will await cultures. Patient is afebrile. Patient denies chest pains. 08/23/2021 Patient is seen in follow-up this morning continues on 4 L via nasal cannula also continues on IV Lasix drip with nephrology following and kidney function slowly improving and urine output is improved and no plans for immediate renal replacement at this time. Chest x-ray today continues to show pulmonary edema and will continue on IV Lasix. Encouraged oral intake and patient also was maintained on breathing treatments. Patient continues on Coumadin with pharmacy to dose and INR was 1.4 today and recommend repeat labs and close monitoring. Patient continues with indwelling Lacy catheter and will continue. Infectious disease also following and urine continues to show ESBL and enterococcus patient is maintained on IV Invanz and will continue. Patient denies worsening shortness of breath or chest pain. Patient is afebrile. 08/24/2021 Patient continues on IV lasix drip with cardio, pulmonary, ID, and nephrology following. Patient is on IV invanz for esbl in the urine and will continue. Pat ient oral intake continues to be poor and will increase Megase. Encouraged oral intake. Patient is maintained on 4L via NC and bipap at night. Recommend to continue with lacy and strict intake and output. Patient is afebrile and denies chest pain or shortness of breath. 08/25/2021 Patient is seen in follow-up today continues with close monitoring with cardiology, nephrology, pulmonary, and infectious disease following. Patient's INR is improved today 2.4 and will continue with Coumadin with pharmacy to dose. WBC trending down at 12.6 and hemoglobin is stable 11.3. patient is maintained on IV Lasix drip with nephrology following closely. Kidney functions trending down and currently 2.01 with a magnesium of 2.2. Sodium is 135 and potassium is 4.5. Encouraged oral intake and have increased Megace and will continue to monitor. She continues with BiPAP at night and 4 L via nasal cannula during the day. Patient is afebrile in fact per nursing staff patient oral temp this morning was 94.5 and currently being placed on Bear hugger. 08/26/2021 Patient is seen this morning and temperature has normalized and no longer with the bare hugger. Patient continues on IV lasix drip with continued volume overload with some minimal improvement in edema. ID following and maintained on IV abx. Nephrology following and cr is stable at 2.2 and lacy catheter is being discontinued. Psychiatry consulted to assess capacity to make decisions. Patient is afebrile and continues with poor oral intake. Patient is consuming her ensures BID. Overall prognosis is poor and guarded. Code status discussed with cousin Kathe and two close friends. Patient denies worsening shortness of breath or chest pains. 08/27/2021 Patient is seen this morning and somnolent although arousable has been maint ained on BiPAP along with 4 L via nasal cannula during the day. Multiple medical consultations following an patient's clinical condition continues to deteriorate. Patient has been maintained on maximum Lasix drip with no real improvement and continues with extensive volume overload. Lengthy discussion was had with family next of kin and close friends and have decided no code and to meet with [facility]. Patient is being flipped to GIP status at this time. Patient denies any chest pain or worsening shortness of breath although on exam patient is tachypneic and using accessory muscles to breathe. Patient is confused and will have conversation but continues with confusion. Patient with severe extensive bilateral lower extremity and abdominal and overall generalized edema noted throughout that is 2+ pitting. Patient is afebrile and denies any chest pains at this time. Review of systems: Constitutional: reports of fatigue and weakness, no reports of fever, or chills Cardiovascular: No reports of chest pain or palpitations Respiratory: reports of shortness of breath GI: No reports of nausea, no reports of of vomiting, no appetite : No reports of dysuria or retention Neurovascular: reports of generalized weakness All medications have been reviewed PHYSICAL EXAMINATION: GENERAL: The patient is alert and oriented x1-2, morbidly obese Well developed, well nourished. and on 4L via NC, ill appearing, extremely weak, confused HEENT: Pupils are round and equally reacting to light. EOMI. no scleral icterus. No conjunctival pallor. Normocephalic, atraumatic. No pharyngeal erythema. No thyromegaly. CARDIOVASCULAR: S1 and S2 muffled PULMONARY: diminished breath sounds bilaterally with some scattered rhonchi noted. ABDOMEN: soft. Nontender on exam. obese. non-distended, normoactive bowel sounds. No palpable organomegaly. MUSCULOSKELETAL: No joint swelling or deformity. EXTREMITIES: No cyanosis, clubbing, lower extremity edema with 2-3+ pitting. Generalized edema noted throughout of abdomen and upper extremities as well NEUROLOGICAL: Gross neurological examination did not reveal any focal deficits. Diffuse weakness SKIN: No rashes. Assessment: Atrial fibrillation with RVR new onset, currently rate controlled Congestive heart failure, acute exacerbation with preserved EF Acute urinary tract infection present on admission possibly secondary to urinary retention showing ESBL with enterococcus Morbid obesity with a BMI of 83.1 acute kidney injury Coagulopathy on coumadin COPD, acute exacerbation Diabetes mellitus, type 2 History of PE HIstory of esbl, MRSA Left hip wound GI prophylaxis DVT prophylaxis No code Plan: Recommend to continue with current medications and management and working towards [facility] with comfort measures per family and close friends. Patient was evaluated by psychiatry and unable to make medical decisions for herself in patient with progressive decline in clinical condition family has agreed to [facility] with comfort measures only. We'll continue to follow closely and ensure that the patient is mostly comfortable. Overall prognosis is extremely poor and guarded at this time. The impression and plan of care has been dictated by Shefali Becerra, nurse practitioner as directed. Dr. Negra MD I have performed a history and examination and MDM of this patient, discussed the same with the dictator, and agree with the dictator's assessment and plan as written ,documented as a scribe. Based on total visit time, I have performed more than 50% of the visit. Any additional findings or plans will be noted. Objective - Vital Signs Vital signs: Vital Signs Temp 97.4 F L 08/27/21 04:00 Pulse 80 08/27/21 07:42 Resp 20 08/27/21 04:00 BP 104/65 08/27/21 04:00 Pulse Ox 93 L 08/27/21 04:00 FiO2 55 08/27/21 04:00 Intake & Output 08/26/21 08/27/21 08/27/21 18:59 06:59 18:59 Intake Total 549 229.5 Output Total 250 300 Balance 299 -70.5 Weight 216.1 kg Intake: Intake, IV Titration 183 179.5 Amount Furosemide 100 mg In 183 179.5 Sodium Chloride 0.9% 90 ml @ 15 MG/HR 15 mls/hr IV .Q6H40M [facility] Rx#: [id number] Oral 366 50 Output: Urine 250 300 Other: Voiding Method Indwelling Catheter Diaper External Catheter - Labs CBC & Chem 7: 08/25/21 09:14 08/27/21 07:27 Labs: Abnormal Lab Results - Last 24 Hours (Table) 08/26/21 08/26/21 08/26/21 Range/Units 11:39 16:20 20:27 PT (9.0-12.0) sec INR (<1.2) POC Glucose (mg/dL) 128 H 140 H 168 H (75-99) mg/dL 08/27/21 08/27/21 Range/Units 06:16 07:27 PT 23.5 H (9.0-12.0) sec INR 2.3 H (<1.2) POC Glucose (mg/dL) 137 H (75-99) mg/dL
[2021-08-27] MEDS ORDERED: FUROSEMIDE 10 MG/ML 10 ML VIAL IV SCH (21:00)
== END 2021-08-27 13:03 | disposition hospice, inpatient (51) | DRG 291 ==
LOC: EC 14:32 → 3SCARD 16:51
PROVIDERS: ADMIT Hospitalist; ATTEND Hospitalist
PROC: 5A09457 Assistance with Respiratory Ventilation, 24-96 Consecutive Hours, Continuous Positive Airway Pressure (ICD-10-PCS; principal; 2021-08-16)
PROC: 5A09357 Assistance with Respiratory Ventilation, Less than 24 Consecutive Hours, Continuous Positive Airway Pressure (ICD-10-PCS; 2021-08-18)
DX: I13.0 Hypertensive heart and chronic kidney disease with heart failure and stage 1 through stage 4 chronic kidney disease, or unspecified chronic kidney disease (principal); I50.43 Acute on chronic combined systolic (congestive) and diastolic (congestive) heart failure; J96.22 Acute and chronic respiratory failure with hypercapnia; N17.0 Acute kidney failure with tubular necrosis; J96.21 Acute and chronic respiratory failure with hypoxia; I31.3 Pericardial effusion (noninflammatory); N39.0 Urinary tract infection, site not specified; E87.4 Mixed disorder of acid-base balance; D68.9 Coagulation defect, unspecified; E66.2 Morbid (severe) obesity with alveolar hypoventilation; Z68.45 Body mass index [BMI] 70 or greater, adult; I48.0 Paroxysmal atrial fibrillation; J43.9 Emphysema, unspecified; N18.9 Chronic kidney disease, unspecified; Z51.5 Encounter for palliative care; Z66 Do not resuscitate; B37.2 Candidiasis of skin and nail; I95.9 Hypotension, unspecified; E11.40 Type 2 diabetes mellitus with diabetic neuropathy, unspecified; E11.22 Type 2 diabetes mellitus with diabetic chronic kidney disease; Z79.01 Long term (current) use of anticoagulants; F31.9 Bipolar disorder, unspecified; E03.9 Hypothyroidism, unspecified; T50.2X5A Adverse effect of carbonic-anhydrase inhibitors, benzothiadiazides and other diuretics, initial encounter; B96.20 Unspecified Escherichia coli [E. coli] as the cause of diseases classified elsewhere; F40.240 Claustrophobia; M17.0 Bilateral primary osteoarthritis of knee; B95.2 Enterococcus as the cause of diseases classified elsewhere; M19.072 Primary osteoarthritis, left ankle and foot; M19.071 Primary osteoarthritis, right ankle and foot; J30.9 Allergic rhinitis, unspecified; E78.5 Hyperlipidemia, unspecified; R42 Dizziness and giddiness; L30.9 Dermatitis, unspecified; Z28.310 Unvaccinated for COVID-19; L98.9 Disorder of the skin and subcutaneous tissue, unspecified; Z74.01 Bed confinement status; Z72.3 Lack of physical exercise; Z79.84 Long term (current) use of oral hypoglycemic drugs; Z79.890 Hormone replacement therapy; Z79.899 Other long term (current) drug therapy; Z86.19 Personal history of other infectious and parasitic diseases; Z86.711 Personal history of pulmonary embolism; Z86.718 Personal history of other venous thrombosis and embolism; Z86.14 Personal history of Methicillin resistant Staphylococcus aureus infection; Z90.49 Acquired absence of other specified parts of digestive tract; Z88.1 Allergy status to other antibiotic agents; Z88.5 Allergy status to narcotic agent; Z88.0 Allergy status to penicillin; Z88.2 Allergy status to sulfonamides; Z91.018 Allergy to other foods
CPT/HCPCS: 36415; 36600; 71045; 76770; 80048; 80053; 81001; 82272; 82533; 82805; 83735; 83880; 84145; 84443; 84484; 85025; 85379; 85610; 85730; 86140; 86704; 86706; 87040; 87077; 87086; 87186; 87340; 93005; 93306; 94640; 94660; 94760; 96365; 96366; 96368; 96375; 99291

== ENCOUNTER 2021-08-27 12:03 | Inpatient (IN) | payer MEDICAID, MEDICARE, OTHER ==
[2021-08-27] MEDS ORDERED: ONDANSETRON 4 MG/2 ML VIAL IVP PRN (12:12)
[2021-08-27] MEDS ORDERED: ATROPINE OPHTH SOLN 1% 5ML BTL SUBLINGUAL PRN (12:12)
[2021-08-27] MEDS ORDERED: ACETAMINOPHEN SUPPOSITORY 650 MG SUPP RECTAL PRN (12:12)
[2021-08-27] MEDS ORDERED: MORPHINE SULFATE 2 MG/ML SYRINGE IV PRN (12:12)
[2021-08-27] MEDS ORDERED: HALOPERIDOL LACTATE 5 MG/ML 1 ML VIAL IM PRN (12:12)
[2021-08-27] MEDS ORDERED: GLYCOPYRROLATE 0.2 MG/ML 2 ML VIAL IVP PRN (12:12)
[2021-08-27] MEDS ORDERED: SCOPOLAMINE 1 MG/72 HR PATCH TRANSDERM SCH (12:15)
[2021-08-27] MEDS ORDERED: diphenhydrAMINE 50 MG/ML 1 ML VIAL IVP PRN (12:18)
[2021-08-27] MEDS: MORPHINE SULFATE (100 MG/2 ML) 100 MG in SODIUM CHLORIDE 0.9% 100 ML IV SCH (16:45)
[2021-08-27] MEDS: FUROSEMIDE 10 MG/ML 4 ML VIAL IV SCH (19:59)
[2021-08-28] MEDS: FUROSEMIDE 10 MG/ML 4 ML VIAL IV SCH ×2 (12:44→22:55)
--- NOTE | 2021-08-28 14:02 | P.HPIM ---
History of Present Illness H&P Date: 08/28/21 History of present illness: Morbidly obese 65-year-old female with multiple medical conditions including CHF, chronic hypoxic and hypercapnic respiratory failure, diabetes mellitus, atrial fibrillation, history of pulmonary embolism, acute renal failure, hypothyroidism. Patient was treated for CHF exacerbation with IV Lasix, she remained on IV Lasix drip for a number of days, however her urine output was quite poor she continued to have significant edema and dyspnea despite continuous diuretics. Patient is morbidly obese with a BMI of 75, despite aggressive diuretic therapy for volume status failed optimized and she was actually a positive fluid balance, her chest x-ray showed diffuse pleural parenchymal changes stable related to underlying CHF. Patient had previously resided at a long-term care facility. Patient had been on BiPAP for respiratory failure requiring that. Patient is also being treated for UTI for which she was receiving empiric antimicrobial therapy with Rocephin. Patient had a requested a hospice consult, and patient was evaluated for hospice and has been admitted for hospice GIP. Review Of Systems: Patient is drowsy, unable to obtain HEENT: Drowsy, large body habitus/morbidly obese female, appears in acute distress NECK: Supple. Wide neck. No lymphadenopathy. No thyromegaly. LUNGS: Respirations even and unlabored, no tenderness or deformity HEART: Regular rate and rhythm. No murmur. ABDOMEN: Soft. Obese, no organomegaly, L sounds present EXTREMITIES: Generalized peripheral edema, atraumatic, no cyanosis NEUROLOGICAL: Drowsy, no facial droop, no focal neural deficits Assessment/plan -Acute exacerbation of CHF with diastolic dysfunction -Decompensated Biventricular heart failure with volume overload -Acute hypoxic and hypercapnic respiratory failure requiring BiPAP -Acute kidney injury, possible ATN -Atrial fibrillation -Chronic CHF -Morbid obesity type 2 diabetes mellitus -COPD -Morbid obesity, BMI 73 -Hypertension -Obesity hypoventilation -History of pulmonary embolism -Hypothyroidism Patient to presented to the hospital with acute shortness of breath, was treated for CHF exacerbation with aggressive diuresis was on IV Lasix drip for a number of days, however failed to improve became oliguric and her Lantus was unable to be optimized. Patient is morbidly obese with a BMI of 73, she has chronic respiratory failure due to obesity hypoventilation, she is bedbound and lives at a long-term care facility. Patient had a requested hospice evaluation which is appropriate given her very poor prognosis and limited quality of life going forward. Patient is admitted to [facility] hospice and will continue with comfort and palliative measures for end-of-life care. Deepak Hoover [employer] Past Medical History Past Medical History: COPD, Diabetes Mellitus, Hypertension, Osteoarthritis (OA), Pulmonary Embolus (PE), Skin Disorder, Thyroid Disorder Additional Past Medical History / Comment(s): Morbid obesity, Diabetes mellitus, hypertension, previous history of pulmonary embolism/DVT, osteoarthritis, hypothyroidism, eczema, osteoarthritis of the lower extremities including knees and ankles and the patient has received steroid shots, chronic allergic rhinitis, vertigo, congestive heart failure, COPD, lymphedema, anemia, diabetic neuropathy, History of Any Multi-Drug Resistant Organisms: ESBL, MRSA Date of last positivie culture/infection: 08/18/21-ESBL; 06/10/19 MRSA MDRO Source:: Urine-ESBL; Abdomen-MRSA Past Surgical History: Breast Surgery, Cholecystectomy, Orthopedic Surgery Additional Past Surgical History / Comment(s): LT WRIST GANGLION CYST. 3 BREAST SURGERIES - BENIGN. RTR. SINUS SURGERY. D&C 07/2014. Past Anesthesia/Blood Transfusion Reactions: Motion Sickness Additional Past Anesthesia/Blood Transfusion Reaction / Comment(s): Claustrophobia Past Psychological History: Bipolar, Depression Smoking Status: Never smoker Past Alcohol Use History: None Reported Past Drug Use History: None Reported - Past Family History Mother Family Medical History: Unable to Obtain Father Family Medical History: Unable to Obtain Medications and Allergies Home Medications Medication Instructions Recorded Confirmed Type Escitalopram [Lexapro] 20 mg PO DAILY@1000 07/31/14 08/27/21 History Levothyroxine Sodium [Synthroid] 88 mcg PO DAILY@1000 07/31/14 08/27/21 History QUEtiapine FUMARATE [SEROquel] 300 mg PO HS@2300 07/31/14 08/27/21 History Linagliptin [Tradjenta] 5 mg PO DAILY@1700 11/30/15 08/27/21 History fluocinolone acetonide oiL 5 drops BOTH EARS BID PRN 04/16/16 08/27/21 History [fluocinolone acetonide oiL 0.01% (Otic)] Acetaminophen Tab [Tylenol] 500 mg PO Q6H PRN 11/13/19 08/27/21 History Ascorbic Acid [Vitamin C] 500 mg PO DAILY@1700 11/13/19 08/27/21 History Calcium Carb-Vit D 500Mg-5Mcg 1 tab PO DAILY@169911/13/19 08/27/21 History [Oscal 500+D 5 Mcg (200 Iu)] Docusate [Colace] 100 mg PO DAILY@1000 11/13/19 08/27/21 History Ferrous Sulfate [Iron (65 MG 325 mg PO BID@1000,1700 11/13/19 08/27/21 History Elemental)] Lidocaine 5% Oint [Xylocaine 5% 1 applic TOPICAL HS PRN 11/13/19 08/27/21 History Oint] Magnesium Hydroxide [Milk of 7,200 mg PO Q48H PRN 11/13/19 08/27/21 History Magnesia Concentrate] Medroxyprogesterone Acetate 10 mg PO DAILY@1000 11/13/19 08/27/21 History [Provera] Menthol [Biofreeze] 1 applic TOPICAL DAILY PRN 11/13/19 08/27/21 History QUEtiapine [SEROquel] 50 mg PO DAILY@1200 11/13/19 08/27/21 History Simethicone [Simethicone Chew] 80 mg PO PC-TID PRN 11/13/19 08/27/21 History Warfarin [Coumadin] 2.5 mg PO SUTUTHSA@169911/13/19 08/27/21 History Warfarin [Coumadin] 5 mg PO MOWEFR@17011/13/19 08/27/21 History bisacodyL 10 mg RECTAL DAILY PRN 11/13/19 08/27/21 History guaiFENesin [guaiFENesin Oral 100 mg PO Q4H PRN 11/13/19 08/27/21 History Solution] LORazepam [Ativan] 1 mg PO BID@1000,1700 #6 tab 11/18/19 08/27/21 Rx Cholecalciferol [Vitamin D3 (25 100 mcg PO DAILY@119908/25/20 08/27/21 History Mcg = 1000 Iu)] Folic Acid 0.4 mg PO DAILY@1000 08/25/20 08/27/21 History Furosemide [Lasix] 20 mg PO DAILY@1700 08/25/20 08/27/21 History Lactobacillus Acidophilus 1 cap PO DAILY@1200 08/25/20 08/27/21 History [Acidophilus Probiotic] Acetaminophen [Tylenol] 650 mg PO Q6H PRN 08/11/21 08/27/21 History Artificial Tears-Hypromellose 2 drops BOTH EYES QID PRN 08/11/21 08/27/21 History [Artificial Tear Drops] Calcium Carbonate [Tums] 500 mg PO DAILY@1700 08/11/21 08/27/21 History Clotrimazole [Clotrimazole AF] 1 applic TOPICAL MOWEFR 08/11/21 08/27/21 History Cyanocobalamin [Vitamin B-12] 500 mcg PO DAILY@17008/11/21 08/27/21 History Furosemide [Lasix] 40 mg PO DAILY@1000 08/11/21 08/27/21 History LORazepam [Ativan] 1 mg PO Q4H PRN 08/11/21 08/27/21 History Metoprolol Tartrate [Lopressor] 12.5 mg PO BID@1000,2300 08/11/21 08/27/21 History Multivitamins, Thera [Multivitamin 1 tab PO DAILY@17008/11/21 08/27/21 History (formulary)] Omeprazole [PriLOSEC] 20 mg PO HS@2200 08/11/21 08/27/21 History Phytonadione [Vitamin K] 5 mg PO ONCE 08/11/21 08/27/21 History Triamcinolone 0.5% Cream [Kenalog 1 applic TOPICAL MOWEFR 08/11/21 08/27/21 History 0.5% Cream] glipiZIDE [Glucotrol] 2.5 mg PO DAILY@1000 08/11/21 08/27/21 History Allergies Allergy/AdvReac Type Severity Reaction Status Date / Time ciprofloxacin [From Cipro] Allergy Severe HIVES Verified 08/27/21 13:30 ciprofloxacin HCl Allergy Severe HIVES Verified 08/27/21 13:30 [From Cipro] clarithromycin [From Biaxin] Allergy Severe HIVES Verified 08/27/21 13:30 codeine Allergy Severe HIVES Verified 08/27/21 13:30 hydrocodone bitartrate Allergy Severe Rash/Hives Verified 08/27/21 13:30 [From Vicodin] alprazolam [From Xanax] Allergy Unknown HIVES Verified 08/27/21 13:30 clindamycin HCl Allergy Unknown HIVES Verified 08/27/21 13:30 [From Cleocin] clindamycin palmitate HCl Allergy Unknown HIVES Verified 08/27/21 13:30 [From Cleocin] clindamycin phosphate Allergy Unknown HIVES Verified 08/27/21 13:30 [From Cleocin] honey Allergy Unknown Anaphylaxis Verified 08/27/21 13:30 metformin Allergy Unknown Anaphylaxis Verified 08/27/21 13:30 doxycycline Allergy Unknown Verified 08/27/21 13:30 duloxetine HCl AdvReac Severe Nausea Verified 08/27/21 13:30 [From Cymbalta] Penicillins AdvReac Severe Abdominal Verified 08/27/21 13:30 Pain Sulfa (Sulfonamide AdvReac Severe HEADACHE Verified 08/27/21 13:30 Antibiotics) buspirone HCl [From BuSpar] AdvReac Unknown Nausea & Verified 08/27/21 13:30 Vomiting cornmeal Allergy Unknown Rash/Hives Uncoded 08/27/21 13:30 Physical Exam Vitals: Vital Signs Resp 08/28/21 04:00 10 L 08/28/21 02:00 12 08/28/21 00:00 12 08/27/21 20:00 15 08/27/21 16:25 18 Intake and Output 08/27/21 08/28/21 08/28/21 22:59 06:59 14:59 Intake Total 20.383 Output Total 500 50 Balance -500 -50 20.383 Intake: Intake, IV Titration 20.383 Amount Morphine Sulfate (100 mg/ 20.383 2 ml) 100 mg In Sodium Chloride 0.9% 100 ml @ 1 MG/HR 1.02 mls/hr IV . Q24H [facility] Rx#:[id number] Output: Urine 500 50 Other: Voiding Method External Catheter External Catheter Weight 216.9 kg
[2021-08-28 14:46] VITALS: BP 83/52; PULSE 82; RESP 18
[2021-08-28] MEDS: MORPHINE SULFATE (100 MG/2 ML) 100 MG in SODIUM CHLORIDE 0.9% 100 ML IV SCH (22:55)
--- NOTE | 2021-08-31 14:18 | P.DS ---
Providers Date of admission: 08/27/21 13:04 Expected date of discharge: 08/28/21 Attending physician: Omar Flynn Primary care physician: Frank Vera Hospital Course: Preliminary cause of Congestive heart failure with diastolic dysfunction with decompensated biventricular heart failure with volume overload Final diagnosis -Acute exacerbation of CHF with diastolic dysfunction -Decompensated Biventricular heart failure with volume overload -Acute hypoxic and hypercapnic respiratory failure requiring BiPAP -Acute kidney injury, possible ATN -Atrial fibrillation -Chronic CHF -Morbid obesity type 2 diabetes mellitus -COPD -Morbid obesity, BMI 73 -Hypertension -Obesity hypoventilation -History of pulmonary embolism -Hypothyroidism Discharge disposition Patient has with [facility] hospice services GIP and comfort measures only. According to nursing documentation, according to nursing documentation time was 0236. Please refer to previous dictations and previous charting for further HPI. Hospital course This is a 66-year-old female who was admitted for CHF exacerbation along with atrial fibrillation and UTI and was maintained on Lasix drips along with Antibiotics and continued to deteriorate and continued on IV Lasix drip with no real improvement in heart failure and continued with severe overload. Overall prognosis is extremely poor and discussion was had about CODE STATUS with family, friends, and patient and patient was made hospice comfort measures as her overall prognosis remained quite poor and given her multiple medical debilities and poor quality of life patient was made hospice comfort measures. Was placed on morphine drip and Ativan as needed and at 0238 on 08/28/2021. The impression and plan of care has been dictated by Shefali Becerra, Nurse Practitioner as directed. Dr. Negra MD I have performed a history and examination and MDM of this patient, discussed the same with the dictator, and agree with the dictator's assessment and plan as written ,documented as a scribe. Based on total visit time, I have performed more than 50% of the visit. Plan - Discharge Summary New Discharge Prescriptions: No Action Levothyroxine Sodium [Synthroid] 88 mcg PO DAILY@1000 QUEtiapine FUMARATE [SEROquel] 300 mg PO HS@2300 Escitalopram [Lexapro] 20 mg PO DAILY@1000 Linagliptin [Tradjenta] 5 mg PO DAILY@1700 fluocinolone acetonide oiL [fluocinolone acetonide oiL 0.01% (Otic)] 5 drops BOTH EARS BID PRN PRN Reason: ITCHING EARS Acetaminophen Tab [Tylenol] 500 mg PO Q6H PRN PRN Reason: Pain Simethicone [Simethicone Chew] 80 mg PO PC-TID PRN PRN Reason: UPPERGASTRIC DISTRESS Magnesium Hydroxide [Milk of Magnesia Concentrate] 7,200 mg PO Q48H PRN PRN Reason: Constipation Lidocaine 5% Oint [Xylocaine 5% Oint] 1 applic TOPICAL HS PRN PRN Reason: WOUND PAIN guaiFENesin [guaiFENesin Oral Solution] 100 mg PO Q4H PRN PRN Reason: Cough bisacodyL 10 mg RECTAL DAILY PRN PRN Reason: Constipation Menthol [Biofreeze] 1 applic TOPICAL DAILY PRN PRN Reason: Pain Docusate [Colace] 100 mg PO DAILY@1000 QUEtiapine [SEROquel] 50 mg PO DAILY@1200 Calcium Carb-Vit D 500Mg-5Mcg [Oscal 500+D 5 Mcg (200 Iu)] 1 tab PO DAILY@1700 Medroxyprogesterone Acetate [Provera] 10 mg PO DAILY@1000 Ferrous Sulfate [Iron (65 MG Elemental)] 325 mg PO BID@1000,1700 Warfarin [Coumadin] 5 mg PO MOWEFR@1700 Warfarin [Coumadin] 2.5 mg PO SUTUTHSA@1700 Ascorbic Acid [Vitamin C] 500 mg PO DAILY@1700 LORazepam [Ativan] 1 mg PO BID@1000,1700 #6 tab Lactobacillus Acidophilus [Acidophilus Probiotic] 1 cap PO DAILY@1200 Phytonadione [Vitamin K] 5 mg PO ONCE Artificial Tears-Hypromellose [Artificial Tear Drops] 2 drops BOTH EYES QID PRN PRN Reason: Dry Eye(S) LORazepam [Ativan] 1 mg PO Q4H PRN PRN Reason: Anxiety Acetaminophen [Tylenol] 650 mg PO Q6H PRN PRN Reason: Pain Metoprolol Tartrate [Lopressor] 12.5 mg PO BID@1000,2300 Cyanocobalamin [Vitamin B-12] 500 mcg PO DAILY@1700 Triamcinolone 0.5% Cream [Kenalog 0.5% Cream] 1 applic TOPICAL MOWEFR Furosemide [Lasix] 40 mg PO DAILY@1000 glipiZIDE [Glucotrol] 2.5 mg PO DAILY@1000 Calcium Carbonate [Tums] 500 mg PO DAILY@1700 Furosemide [Lasix] 20 mg PO DAILY@1700 Folic Acid 0.4 mg PO DAILY@1000 Cholecalciferol [Vitamin D3 (25 Mcg = 1000 Iu)] 100 mcg PO DAILY@1200 Omeprazole [PriLOSEC] 20 mg PO HS@2200 Multivitamins, Thera [Multivitamin (formulary)] 1 tab PO DAILY@1700 Clotrimazole [Clotrimazole AF] 1 applic TOPICAL MOWEFR Discharge Medication List Escitalopram [Lexapro] 20 mg PO DAILY@1000 07/31/14 [History] Levothyroxine Sodium [Synthroid] 88 mcg PO DAILY@1000 07/31/14 [History] QUEtiapine FUMARATE [SEROquel] 300 mg PO HS@23007/31/14 [History] Linagliptin [Tradjenta] 5 mg PO DAILY@17011/30/15 [History] fluocinolone acetonide oiL [fluocinolone acetonide oiL 0.01% (Otic)] 5 drops BOTH EARS BID PRN 04/16/16 [History] Acetaminophen Tab [Tylenol] 500 mg PO Q6H PRN 11/13/19 [History] Ascorbic Acid [Vitamin C] 500 mg PO DAILY@17011/13/19 [History] Calcium Carb-Vit D 500Mg-5Mcg [Oscal 500+D 5 Mcg (200 Iu)] 1 tab PO DAILY@17011/13/19 [History] Docusate [Colace] 100 mg PO DAILY@1000 11/13/19 [History] Ferrous Sulfate [Iron (65 MG Elemental)] 325 mg PO BID@1000,17011/13/19 [History] Lidocaine 5% Oint [Xylocaine 5% Oint] 1 applic TOPICAL HS PRN 11/13/19 [History] Magnesium Hydroxide [Milk of Magnesia Concentrate] 7,200 mg PO Q48H PRN 11/13/19 [History] Medroxyprogesterone Acetate [Provera] 10 mg PO DAILY@1000 11/13/19 [History] Menthol [Biofreeze] 1 applic TOPICAL DAILY PRN 11/13/19 [History] QUEtiapine [SEROquel] 50 mg PO DAILY@1200 08/26/20 [History] Simethicone [Simethicone Chew] 80 mg PO PC-TID PRN 11/13/19 [History] Warfarin [Coumadin] 2.5 mg PO SUTUTHSA@169911/13/19 [History] Warfarin [Coumadin] 5 mg PO MOWEFR@169911/13/19 [History] bisacodyL 10 mg RECTAL DAILY PRN 11/13/19 [History] guaiFENesin [guaiFENesin Oral Solution] 100 mg PO Q4H PRN 11/13/19 [History] LORazepam [Ativan] 1 mg PO BID@1000,1700 #6 tab 11/18/19 [Rx] Cholecalciferol [Vitamin D3 (25 Mcg = 1000 Iu)] 100 mcg PO DAILY@119908/25/20 [History] Folic Acid 0.4 mg PO DAILY@99908/25/20 [History] Furosemide [Lasix] 20 mg PO DAILY@169908/25/20 [History] Lactobacillus Acidophilus [Acidophilus Probiotic] 1 cap PO DAILY@119908/25/20 [History] Acetaminophen [Tylenol] 650 mg PO Q6H PRN 08/11/21 [History] Artificial Tears-Hypromellose [Artificial Tear Drops] 2 drops BOTH EYES QID PRN 08/11/21 [History] Calcium Carbonate [Tums] 500 mg PO DAILY@169908/11/21 [History] Clotrimazole [Clotrimazole AF] 1 applic TOPICAL MOWEFR 08/11/21 [History] Cyanocobalamin [Vitamin B-12] 500 mcg PO DAILY@169908/11/21 [History] Furosemide [Lasix] 40 mg PO DAILY@99908/11/21 [History] LORazepam [Ativan] 1 mg PO Q4H PRN 08/11/21 [History] Metoprolol Tartrate [Lopressor] 12.5 mg PO BID@1000,2300 08/11/21 [History] Multivitamins, Thera [Multivitamin (formulary)] 1 tab PO DAILY@169908/11/21 [History] Omeprazole [PriLOSEC] 20 mg PO HS@22008/11/21 [History] Phytonadione [Vitamin K] 5 mg PO ONCE 08/11/21 [History] Triamcinolone 0.5% Cream [Kenalog 0.5% Cream] 1 applic TOPICAL MOWEFR 08/11/21 [History] glipiZIDE [Glucotrol] 2.5 mg PO DAILY@1000 08/11/21 [History] Discharge Disposition: - Preliminary Cause of Preliminary Cause of : CHF with diastolic dysfunction
== END 2021-08-29 04:46 | disposition expired | DRG 951 ==
LOC: 3SCARD 13:04
PROVIDERS: ADMIT Hospitalist; ATTEND Hospitalist
DX: Z51.5 Encounter for palliative care (principal); I50.33 Acute on chronic diastolic (congestive) heart failure; J96.22 Acute and chronic respiratory failure with hypercapnia; J96.21 Acute and chronic respiratory failure with hypoxia; Z68.45 Body mass index [BMI] 70 or greater, adult; E66.2 Morbid (severe) obesity with alveolar hypoventilation; N39.0 Urinary tract infection, site not specified; N17.9 Acute kidney failure, unspecified; I11.0 Hypertensive heart disease with heart failure; I50.84 End stage heart failure; I50.82 Biventricular heart failure; E11.40 Type 2 diabetes mellitus with diabetic neuropathy, unspecified; J44.9 Chronic obstructive pulmonary disease, unspecified; F31.9 Bipolar disorder, unspecified; I48.91 Unspecified atrial fibrillation; Z66 Do not resuscitate; E03.9 Hypothyroidism, unspecified; M17.0 Bilateral primary osteoarthritis of knee; M19.072 Primary osteoarthritis, left ankle and foot; M19.071 Primary osteoarthritis, right ankle and foot; I89.0 Lymphedema, not elsewhere classified; L30.9 Dermatitis, unspecified; J30.9 Allergic rhinitis, unspecified; Z79.01 Long term (current) use of anticoagulants; Z79.84 Long term (current) use of oral hypoglycemic drugs; Z79.890 Hormone replacement therapy; Z79.899 Other long term (current) drug therapy; Z86.711 Personal history of pulmonary embolism; Z74.01 Bed confinement status; Z86.14 Personal history of Methicillin resistant Staphylococcus aureus infection; Z86.19 Personal history of other infectious and parasitic diseases; Z86.718 Personal history of other venous thrombosis and embolism; Z90.49 Acquired absence of other specified parts of digestive tract; Z87.19 Personal history of other diseases of the digestive system; Z87.39 Personal history of other diseases of the musculoskeletal system and connective tissue; Z86.018 Personal history of other benign neoplasm; Z86.2 Personal history of diseases of the blood and blood-forming organs and certain disorders involving the immune mechanism; Z98.890 Other specified postprocedural states; Z88.1 Allergy status to other antibiotic agents; Z91.030 Bee allergy status; Z88.5 Allergy status to narcotic agent; Z88.0 Allergy status to penicillin; Z88.2 Allergy status to sulfonamides; Z88.8 Allergy status to other drugs, medicaments and biological substances; Z91.018 Allergy to other foods